=== PATIENT | female | born 1935 | race Caucasian/White ===

== ENCOUNTER 2016-08-27 15:55 | Emergency (ER) | payer OTHER ==
[~2016-08-27] VITALS: Ht 162.6 cm; Wt 85.0 kg
[2016-08-27 15:59] VITALS: TEMP 36.5; Ht 162.6 cm; Wt 85.0 kg
[2016-08-27 16:22] VITALS: O2SAT 97
[2016-08-27] MEDS ORDERED: CEFTRIAXONE SOD INJ 1 GM ADDVIAL IV STA (16:40)
[2016-08-27 16:53] LABS: BASO % 0.2 %; BASO ABS # 0.01 K/uL (0-0.2); EOS % 2.2 %; HEMATOCRIT 36.4 % (37-47); IG% 0.8 %; LYMPH % 22.7 %; LYMPH ABS # 1.45 K/uL (1.2-3.4); MEAN CELL VOLUME 110.3 fL (80-100); MEAN CORPUSCULAR HEMOGLOBIN 39.4 pg (25-34); MEAN CORPUSCULAR HGB CONC 35.7 g/dl (32-36); MEAN PLATELET VOLUME 10.9 fL (7.4-10.4); NEUT % 68.1 %; PLATELET COUNT 435 K/uL (130-400); WHITE BLOOD COUNT 6.38 K/uL (4.8-10.8)
[2016-08-27 17:02] LABS: BUN/CREATININE RATIO 29.9 (10-20); CALCIUM 9.1 mg/dl (8.5-10.1); CREATININE 0.93 mg/dl (0.60-1.20)
[2016-08-27] MEDS ORDERED: FENO145T26 PO (17:09)
[2016-08-27] MEDS ORDERED: ENOX60IN SQ (17:09)
[2016-08-27] MEDS ORDERED: MULT60CA PO (17:09)
[2016-08-27] MEDS ORDERED: NIACIN PO (17:09)
[2016-08-27] MEDS ORDERED: CITA10TA4 PO (17:09)
[2016-08-27] MEDS ORDERED: METH1TAB5 PO (17:09)
[2016-08-27] MEDS ORDERED: OMEG10007 PO (17:09)
[2016-08-27] MEDS ORDERED: CALC500C70 PO (17:09)
[2016-08-27] MEDS ORDERED: [UNRECOGNIZED DRUG - OTHER] PO (17:09)
[2016-08-27] MEDS ORDERED: LEVO25TA5 PO (17:09)
[2016-08-27] MEDS ORDERED: GABA-113 PO (17:09)
[2016-08-27] MEDS ORDERED: FOLI1TAB7 PO (17:09)
[2016-08-27] MEDS ORDERED: CARB1CAP8 PO (17:09)
[2016-08-27] MEDS ORDERED: METO25TA56 PO (17:09)
[2016-08-27] MEDS ORDERED: ROPI1TAB29 PO (17:09)
[2016-08-27] MEDS ORDERED: PANT40TA PO (17:09)
[2016-08-27] MEDS ORDERED: HYDR500C3 PO (17:09)
[2016-08-27] MEDS ORDERED: METO2.5T PO (17:09)
[2016-08-27] MEDS ORDERED: ASPI81TA28 PO (17:09)
[2016-08-27] MEDS ORDERED: ROSU5TAB PO (17:09)
[2016-08-27] MEDS ORDERED: SITA100T3 PO (17:09)
[2016-08-27] MEDS ORDERED: OXYC-57 PO (17:09)
[2016-08-27] MEDS ORDERED: FRS/40 PO (17:09)
[2016-08-27 17:11] LABS: URINE APPEARANCE CLEAR (CLEAR); URINE BILIRUBIN NEG (NEG); URINE COLOR YELLOW; URINE NITRITE NEG (NEG); URINE SPECIFIC GRAVITY 1.003 (1.000-1.030); UROBILINOGEN NEG (NEG); ZZUR CULT IF INDIC CLEAN CATCH NO
[2016-08-27 17:23] LABS: MANUAL MICROSCOPIC REQUIRED? NO; REVIEW REQ? NO
[2016-08-27 17:26] LABS: COMPLETE YES; HYPERSEGMENTED POLYS 1+; POLYCHROMASIA 1+
[2016-08-27] MEDS ORDERED: LEVOFLOXACIN 250 MG TAB PO STA (17:34)
[2016-08-27] MEDS ORDERED: LEVO-366 PO (17:36)
--- NOTE | 2016-08-27 17:36 | EMERGENCY ROOM VISIT NOTE ---
History Report prepared by Juhi: Maegan Garcia Under the Supervision of: Dr. Rob Edgar D.O. First contact with patient: 16:35 Chief Complaint: RECTAL BLEEDING Stated Complaint: RECTAL BLEEDING, SINUSES Nursing Triage Summary: Triage note: Pt reports and rectal bleeding x 3 days. pt also reports blood in urine "i have an appt with dr palencia coming up." pt reports "i have diverticulties and only have part of my colon." History of Present Illness The patient is a 81 year old female who presents to the Emergency Room with complaints of persistent rectal bleeding that started three days ago. She is also experiencing back pain, hematuria, burning with urination, and increased urinary frequency. The patient states that the back pain started when the bleeding started. She states that she noticed the hematuria after the rectal bleeding. Additionally, she is experiencing nausea, but denies vomiting. She is also experiencing a headache, sorethroat, abdominal pain, occasional dyspnea on exertion, and left thigh pain. The patient adds that she has diverticulitis and only has part of her colon. The patient is on Lovenox. Source of History: patient Onset: three days ago Position: other (rectum) Quality: other (rectal bleeding) Timing: other (persistent) Associated Symptoms: + abdominal pain, + back pain, + headache, + nausea, + sorethroat, + urinary symptoms (hematuria, burning with urination, increased urinary frequency), No vomiting Note: occasional dyspnea on exertion, left thigh pain Review of Systems See HPI for pertinent positives & negatives. A total of 10 systems reviewed and were otherwise negative. Past Medical & Surgical Medical Problems: (1) Diabetes (2) DVT (deep venous thrombosis) (3) Heart disease (4) History of pulmonary embolism (5) Hypertension (6) Pacemaker Surgical Problems: (1) H/O: hysterectomy (2) History of partial surgical removal of colon (3) Hx of appendectomy (4) Hx of cholecystectomy Family History Cancer Diabetes mellitus Heart disease Hypertension Kidney disease Kidney stones Social History Smoking Status: Never Smoker Alcohol Use: none Drug Use: none Housing Status: lives with family Occupation Status: unemployed Current/Historical Medications Scheduled Aspirin (Aspirin Ec), 81 MG PO DAILY Calcium/Vitamin D (Os-Demario 500 Plus D), 1 TAB PO DAILY Carbamazepine (Carbatrol Er), 1.5 TAB PO BID Citalopram Hydrobromide (Citalopram Hydrobromide), 1 TAB PO DAILY Enoxaparin (Lovenox), 60 MG SQ Q12H Fenofibrate (Tricor ), 150 MG PO DAILY Fish Oil ([place]-3), 1 CAP PO BID Folic Acid (Folvite), 400 MCG PO DAILY Furosemide (Lasix), 40 MG PO DAILY Gabapentin (Neurontin), 4 TAB PO HS Hydroxyurea (Hydrea Cap), 500 MG PO BID Levofloxacin (Levaquin), 500 MG PO DAILY Levothyroxine Sodium (Levothyroxine Sodium), 1 TAB PO DAILY Methenamine Hippurate (Methenamine Hippurate), 1 TAB PO BID Metolazone (Zaroxolyn), 2.5 MG PO DAILY Metoprolol Tartrate (Lopressor) (Lopressor), 25 MG PO BID Multiple Vitamins W/ Minerals (Preservision Areds 2), 1 CAP PO BID Pantoprazole (Protonix), 40 MG PO DAILY Ropinirole HCl (Ropinirole HCl), 1 MG PO DAILY Rosuvastatin Calcium (Crestor), 5 MG PO DAILY Sitagliptin Phosphate (Januvia), 100 MG PO DAILY [Vitamin B3 Niacin], 500 MG PO DAILY Scheduled PRN Oxycodone/Acetaminophen 5MG/325MG (Percocet 5MG/325MG), 1 TABLET PO Q4H PRN for Pain Allergies Coded Allergies: Acetaminophen (Unverified Allergy, Severe, unknown, 08/27/16) Butorphanol (Unverified Allergy, Severe, unknown, 08/27/16) Chlorzoxazone (Unverified Allergy, Severe, unknown, 08/27/16) Diazepam (Unverified Allergy, Severe, unknown, 08/27/16) Erythromycin (Unverified Allergy, Severe, unknown, 08/27/16) Naloxone (Unverified Allergy, Severe, unknown, 08/27/16) Nitrofurantoin (Unverified Allergy, Severe, unknown, 08/27/16) Pentazocine (Unverified Allergy, Severe, unknown, 08/27/16) Physical Exam Vital Signs Date Time Temp Pulse Resp B/P Pulse Ox O2 Delivery O2 Flow Rate FiO2 08/27/16 16:35 63 08/27/16 16:22 97 Room Air 08/27/16 15:59 36.5 77 20 151/74 97 Room Air Physical Exam CONSTITUTIONAL/VITAL SIGNS: Reviewed / noted above. GENERAL: Non-toxic in appearance. INTEGUMENTARY: Warm, dry, and [place]. HEAD: Normocephalic. EYES: without scleral icterus or trauma. ENT/OROPHARYNX: clear and moist. LYMPHADENOPATHY/NECK: Is supple without lymphadenopathy or meningismus. RESPIRATORY: Lungs clear and equal. CARDIOVASCULAR: Regular rate and rhythm. GI/ABDOMEN: Soft and nontender. No organomegaly or pulsatile mass. No rebound or guarding. Normal bowel sounds. EXTREMITIES: Warm and well perfused. BACK: Mild CVA tenderness. RECTAL: GUAIAC negative. light brown stool. No gross blood. NEUROLOGICAL: Intact without focal deficits. PSYCHIATRIC: normal affect. MUSCULOSKELETAL: Normally developed with good muscle tone. Medical Decision & Procedures Laboratory Results 08/27/16 16:19 Red Blood Count 3.30, Mean Corpuscular Volume 110.3, Mean Corpuscular Hemoglobin 39.4, Mean Corpuscular Hemoglobin Concent 35.7, Mean Platelet Volume 10.9, Neutrophils (%) (Auto) 68.1, Lymphocytes (%) (Auto) 22.7, Monocytes (%) ( Auto) 6.0, Eosinophils (%) (Auto) 2.2, Basophils (%) (Auto) 0.2, Neutrophils # ( Auto) 4.35, Lymphocytes # (Auto) 1.45, Monocytes # (Auto) 0.38, Eosinophils # ( Auto) 0.14, Basophils # (Auto) 0.01 08/27/16 16:19 Test 08/27/16 16:19 White Blood Count 6.38 K/uL (4.8-10.8) Red Blood Count 3.30 M/uL (4.2-5.4) Hemoglobin 13.0 g/dL (12.0-16.0) Hematocrit 36.4 % (37-47) Mean Corpuscular Volume 110.3 fL (80-100) Mean Corpuscular Hemoglobin 39.4 pg (25-34) Mean Corpuscular Hemoglobin Concent 35.7 g/dl (32-36) Platelet Count 435 K/uL (130-400) Mean Platelet Volume 10.9 fL (7.4-10.4) Neutrophils (%) (Auto) 68.1 % Lymphocytes (%) (Auto) 22.7 % Monocytes (%) (Auto) 6.0 % Eosinophils (%) (Auto) 2.2 % Basophils (%) (Auto) 0.2 % Neutrophils # (Auto) 4.35 K/uL (1.4-6.5) Lymphocytes # (Auto) 1.45 K/uL (1.2-3.4) Monocytes # (Auto) 0.38 K/uL (0.11-0.59) Eosinophils # (Auto) 0.14 K/uL (0-0.5) Basophils # (Auto) 0.01 K/uL (0-0.2) RDW Standard Deviation 62.6 fL (36.4-46.3) RDW Coefficient of Variation 15.8 % (11.5-14.5) Immature Granulocyte % (Auto) 0.8 % Immature Granulocyte # (Auto) 0.05 K/uL (0.00-0.02) Hypersegmented Polys 1+ Polychromasia 1+ Macrocytosis PRESENT Urine Color YELLOW Urine Appearance CLEAR (CLEAR) Urine pH 5.0 (4.5-7.5) Urine Specific [place] 1.003 (1.000-1.030) Urine Protein NEG (NEG) Urine Glucose (UA) NEG (NEG) Urine Ketones NEG (NEG) Urine Occult Blood 2+ (NEG) Urine Nitrite NEG (NEG) Urine Bilirubin NEG (NEG) Urine Urobilinogen NEG (NEG) Urine Leukocyte Esterase SMALL (NEG) Urine WBC (Auto) 5-10 /hpf (0-5) Urine RBC (Auto) 5-10 /hpf (0-4) Urine Hyaline Casts (Auto) 1-5 /lpf (0-5) Urine Epithelial Cells (Auto) 5-10 /lpf (0-5) Urine Bacteria (Auto) NEG (NEG) Anion Gap 6.0 mmol/L (3-11) Est Creatinine Clear Calc Drug Dose 51.8 ml/min Estimated GFR () 67.7 Estimated GFR (Non- 58.5 BUN/Creatinine Ratio 29.9 (10-20) Calcium Level 9.1 mg/dl (8.5-10.1) Laboratory results as stated above per my review. Medications Administered Medications (Trade) Dose Ordered Sig/Tone Route Start Time Stop Time Status Last Admin Dose Admin Ceftriaxone Sodium (Rocephin Inj) 1 gm NOW STAT IV 08/27/16 16:40 08/27/16 16:43 DC 08/27/16 16:50 1 GM ED Course 1635: Previous medical records were reviewed. The patient was evaluated in room B6. A complete history and physical examination was performed. 1640: Ordered Rocephin Inj 1 gm IV 1734: Ordered Levofloxacin 500 mg PO 1737: On reevaluation, the patient is doing well. I discussed the results and findings with the patient. She verbalized agreement of the treatment plan. She was discharged home. Medical Decision Differential includes UTI, renal hemorrhage, bladder cancer, trauma, anemia. This is a 81-year-old female who presents to the ED with a chief complaint of gastrointestinal/genitourinary bleeding. The patient states that she came in for this. The patient also reports that she has discomfort with urination as well as increased urination. She is on Lovenox for DVT. Her vital signs are normal. Her physical exam did not reveal any obvious abnormalities. Rectal exam reveals no gross blood. It was guaiac negative and light brown. CBC is unremarkable. The BUN is 28. Urine reveals 2+ blood, leukocyte Estrace, small amount of white and red cells and no bacteria. The patient was given IV Rocephin while here. The urine did not show clear-cut infection. She is symptomatic, however, she will be sent home with 3 days of Levaquin. Culture has been sent. She is felt to be stable for discharge and outpatient follow-up. Impression Primary Impression: Hematuria Additional Impression: UTI (urinary tract infection) Scribe Attestation The scribe's documentation has been prepared under my direction and personally reviewed by me in its entirety. I confirm that the note above accurately reflects all work, treatment, procedures, and medical decision making performed by me. Departure Information Dispostion Home / Self-Care Prescriptions Levofloxacin (Levaquin) 500 Mg Tab 500 MG PO DAILY for 3 Days, #3 TAB Prov: Rob Edgar D.O. 08/27/16 Referrals Yan Randolph (PCP) Forms HOME CARE DOCUMENTATION FORM, IMPORTANT VISIT INFORMATION, WORK / SCHOOL INSTRUCTIONS Patient Instructions My [facility] Additional Instructions Prescription for Levaquin and sent to [place] [facility]. Follow-up with your doctor for further care and evaluation in 2-4 days. Return to the emergency department for worsening or new symptoms or any concerns. You have been examined and treated today on an emergency basis only. This is not a substitute for, or an effort to provide, complete comprehensive medical care. It is impossible to recognize and treat all injuries or illnesses in a single emergency department visit. It is therefore important that you follow up closely with your doctor. Call as soon as possible for an appointment. Problem Qualifiers
[2016-08-27 17:55] VITALS: BP 128/71; PULSE 66; O2SAT 99
[2016-09-14] MEDS ORDERED: ENOX60IN SQ (09:52)
[2016-09-14] MEDS ORDERED: HYDR500C3 PO (09:52)
[2016-09-14] MEDS ORDERED: AREDS PO (09:57)
[2016-09-14] MEDS ORDERED: OXGN (10:09)
[2016-09-27] MEDS ORDERED: CIPR1TAB11 PO (09:42)
[2016-09-27] MEDS ORDERED: ACET-749 PO (09:42)
[2016-09-27] MEDS ORDERED: PHEN-775 PO (09:42)
[2016-10-15] MEDS ORDERED: LVNIS60 SQ (09:54)
[2016-10-15] MEDS ORDERED: DICY10CA55 PO ×2 (09:54→09:55)
[2016-12-31] MEDS ORDERED: MTR500 PO (13:44)
[2016-12-31] MEDS ORDERED: CPR500 PO (13:44)
[2016-12-31] MEDS ORDERED: OXYC-57 PO (13:44)
[2016-12-31] MEDS ORDERED: DXY100 PO (13:44)
[2016-12-31] MEDS ORDERED: IMD2 PO (13:44)
[2016-12-31] MEDS ORDERED: Boost Nutritional Drink PO (13:44)
[2016-12-31] MEDS ORDERED: FRS/40 PO (13:44)
== END 2016-08-27 18:02 | disposition home or self-care (01) ==
LOC: C.EDB 15:56
DX: R31.9 Hematuria, unspecified (principal); N39.0 Urinary tract infection, site not specified; E11.9 Type 2 diabetes mellitus without complications; I11.9 Hypertensive heart disease without heart failure; I51.9 Heart disease, unspecified; Z79.899 Other long term (current) drug therapy; Z79.01 Long term (current) use of anticoagulants; Z79.84 Long term (current) use of oral hypoglycemic drugs; Z79.82 Long term (current) use of aspirin; Z86.718 Personal history of other venous thrombosis and embolism; Z86.711 Personal history of pulmonary embolism; Z95.0 Presence of cardiac pacemaker; Z83.3 Family history of diabetes mellitus; Z82.49 Family history of ischemic heart disease and other diseases of the circulatory system; Z84.1 Family history of disorders of kidney and ureter

== ENCOUNTER 2016-09-27 07:17 | Day surgery (SDC) | payer OTHER ==
[2016-09-14 10:00] VITALS: BMI 32.0
--- NOTE | 2016-09-14 10:49 | PAT Medication Instructions ---
Service Date Sep 14, 2016. Current Home Medication List Aspirin (Aspirin Ec), 81 MG PO QAM Calcium/Vitamin D (Os-Demario 500 Plus D), 1 TAB PO QAM Carbamazepine (Carbatrol Er), 1.5 TAB PO BID Citalopram Hydrobromide (Citalopram Hydrobromide), 1 TAB PO QAM Enoxaparin (Lovenox), 60 MG SQ Q12H Fenofibrate (Tricor ), 145 MG PO QAM Fish Oil ([place]-3), 1 CAP PO BID Folic Acid (Folvite), 400 MCG PO QAM Furosemide (Lasix), 40 MG PO QAM Gabapentin (Neurontin), 1,200 MG PO HS Hydroxyurea (Hydrea Cap), 500 MG PO BID Levothyroxine Sodium (Levothyroxine Sodium), 1 TAB PO QAM Metolazone (Zaroxolyn), 2.5 MG PO PRN Metoprolol Tartrate (Lopressor) (Lopressor), 25 MG PO BID Multiple Vitamins W/ Minerals (Preservision Areds 2), 1 CAP PO BID Oxycodone/Acetaminophen 5MG/325MG (Percocet 5MG/325MG), 1 TABLET PO Q4H PRN for Pain Oxygen (Oxygen), 2 LITERS NA HS Pantoprazole (Protonix), 40 MG PO QAM Ropinirole HCl (Ropinirole HCl), 1 MG PO DAILY Rosuvastatin Calcium (Crestor), 5 MG PO QAM Sitagliptin Phosphate (Januvia), 100 MG PO QAM [Vitamin B3 Niacin], 500 MG PO QAM Medication Instructions For Your Scheduled Surgery - Enoxaparin (Lovenox), 60 MG SQ Q12H (Check with surgeon/Dr. Jaffe) - Hydroxyurea (Hydrea Cap), 500 MG PO BID (Check with surgeon/Dr. Jaffe) - Aspirin (Aspirin Ec), 81 MG PO QAM (check with surgeon for instructions/PCP) - Hold the following medications starting 09/14/16: Fish Oil ([place]-3), 1 CAP PO BID - Hold the following medications the morning of surgery: Sitagliptin Phosphate (Januvia), 100 MG PO QAM Multiple Vitamins W/ Minerals (Preservision Areds 2), 1 CAP PO BID Ropinirole HCl (Ropinirole HCl), 1 MG PO QAM Furosemide (Lasix), 40 MG PO QAM Folic Acid (Folvite), 400 MCG PO QAM Calcium/Vitamin D (Os-Demario 500 Plus D), 1 TAB PO QAM Fenofibrate (Tricor ), 145 MG PO QAM [Vitamin B3 Niacin], 500 MG PO QAM Metolazone (Zaroxolyn), 2.5 MG PO PRN - Take the following medications the morning of surgery with a sip of water: Rosuvastatin Calcium (Crestor), 5 MG PO QAM Pantoprazole (Protonix), 40 MG PO QAM Metoprolol Tartrate (Lopressor) (Lopressor), 25 MG PO BID Levothyroxine Sodium (Levothyroxine Sodium), 1 TAB PO QAM Citalopram Hydrobromide (Citalopram Hydrobromide), 1 TAB PO QAM Carbamazepine (Carbatrol Er), 1.5 TAB PO BID Oxycodone/Acetaminophen 5MG/325MG (Percocet 5MG/325MG), 1 TABLET PO Q4H PRN for Pain (okay to take up to 4 hours prior to surgery if needed) - Hold the following medications as scheduled the night before surgery: Ropinirole HCl (Ropinirole HCl), 1 MG PO 3 TABLETS QPM - Take the following medications as scheduled the night before surgery: Oxygen (Oxygen), 2 LITERS NA HS Multiple Vitamins W/ Minerals (Preservision Areds 2), 1 CAP PO BID Metoprolol Tartrate (Lopressor) (Lopressor), 25 MG PO BID Gabapentin (Neurontin), 1,200 MG PO HS Carbamazepine (Carbatrol Er), 1.5 TAB PO BID Oxycodone/Acetaminophen 5MG/325MG (Percocet 5MG/325MG), 1 TABLET PO Q4H PRN for Pain Metolazone (Zaroxolyn), 2.5 MG PO PRN If you have any questions please call us at [phone] (Pippa Jefferson PA-C) or [phone] or [phone]
--- NOTE | 2016-09-14 11:35 | DIAGNOSTIC IMAGING REPORT ---
CHEST 2 VIEWS ROUTINE HISTORY: Preop. COMPARISON: None. FINDINGS: Left-sided dual-chamber pacemaker. No pleural effusions. No pneumothorax. No focal lung consolidations to suggest pneumonia. No evidence for pulmonary edema. Questionable right infrahilar density likely represents confluence of the normal pulmonary vessels. The heart is normal in size. IMPRESSION: No acute process. Electronically signed by: Gregory Roth M.D. 09/14/2016 11:34 AM Dictated Date/Time: 09/14/2016 11:31 AM
[~2016-09-27] VITALS: Ht 165.1 cm; Wt 88.1 kg
[~2016-09-27 07:17] MED LIST: ASPI81TA28 PO; CALC500C70 PO; CARB1CAP8 PO; CIPROFLOXACIN / D5W 400 MG IV SCH; CITA10TA4 PO; ENOX60IN SQ; FENO145T26 PO; FOLI1TAB7 PO; FRS/40 PO; GABA-113 PO; HYDR500C3 PO; LACTATED RINGER'S 1000ML 1,000 ML IV SCH; LEVO25TA5 PO; METO2.5T PO; METO25TA56 PO; MULT60CA PO; NIACIN PO; OMEG10007 PO; OXGN; OXYC-57 PO; PANT40TA PO; ROPI1TAB29 PO; ROSU5TAB PO; SITA100T3 PO; [UNRECOGNIZED DRUG - OTHER] PO
[2016-09-27] MEDS ORDERED: LIDOCAINE HCL 2% 2 ML VIAL (20MG/ML) ONE (07:54)
[2016-09-27] MEDS ORDERED: MIDAZOLAM HCL 1 MG/ML 2ML VIAL ONE (07:54)
[2016-09-27] MEDS ORDERED: ONDANSETRON INJ 2 MG/ML 2 ML VIAL ONE (07:54)
[2016-09-27] MEDS ORDERED: FENTANYL CITRATE INJ 50 MCG/1 ML 2 ML VIAL ONE (07:54)
[2016-09-27] MEDS ORDERED: PROPOFOL IV EMULSION 10 MG/ML 20 ML VIAL IV ONE (07:54)
[2016-09-27 08:07] VITALS: BP 167/69; PULSE 62; TEMP 36.5; O2SAT 97; Ht 165.1 cm; Wt 88.1 kg
[2016-09-27] MEDS ORDERED: ONDANSETRON INJ 2 MG/ML 2 ML VIAL IV PRN (08:30)
[2016-09-27] MEDS ORDERED: FENTANYL CITRATE INJ 50 MCG/1 ML 2 ML VIAL IV PRN (08:30)
[2016-09-27] MEDS ORDERED: ATROPINE SULFATE 0.1 MG/ML 5ML SYR IV PRN (08:30)
[2016-09-27] MEDS ORDERED: EpHEDrine SULFATE INJ 50 MG/ML AMP IV PRN (08:30)
--- NOTE | 2016-09-27 08:36 | History & Physical Bridge Note ---
H&P Re-Evaluation Bridge Note: I have examined the patient, reviewed the History & Physical and in the interval since the performance of the History & Physical I have noted the following changes of clinical significance: No changes noted
--- NOTE | 2016-09-27 09:41 | [facility] Post Operative Brief Note ---
Immediate Operative Summary Operative Date Sep 27, 2016. Pre-Operative Diagnosis Gross Hematuria Post-Operative Diagnosis Same Procedure(s) Performed Cystoscopy, Bladder Biopsy, Fulguration. Surgeon Dr. Efrain Padilla D[employer] Teacher Surgeon(s) None Estimated Blood Loss 5ML Findings Erythematous patch on the right lateral wall, several cm in diameter. Posterior to the UO by several cm. Biopsy x3 then fulguration of the entire area. Specimens A. Bladder biopsy - Right Lateral wall x3 Drains none Anesthesia MAC Complication(s) None Disposition Recovery Room / PACU (stable)
[2016-09-27] MEDS ORDERED: PHEN-775 PO (09:42)
[2016-09-27] MEDS ORDERED: CIPR1TAB11 PO (09:42)
[2016-09-27] MEDS ORDERED: ACET-749 PO (09:42)
[2016-09-27] MEDS ORDERED: SODIUM CHLORIDE 0.9% 1000ML 1,000 ML IV SCH (09:46)
--- NOTE | 2016-09-27 09:46 | Discharge Instructions ---
Discharge Instructions Admission Reason for Admission: Gross Hematuria Discharge Discharge Diagnosis / Problem: identify and treat the problem Discharge Goals Goal(s): Decrease discomfort, Improve function, Increase independence, Improve disease control Activity Recommendations Activity Limitations: resume your previous activity Lifting Limitations: none Exercise/Sports Limitations: none May Resume Sexual Activity: when tolerated Shower/Bathe: no limitations Driving or Machine Use: no limitations . Discharge Diet Recommended Diet: Regular Diet Procedures Procedures Performed: Cystoscopy, Bladder Biopsy, Fulguration. Pending Studies Studies pending at discharge: no Medical Emergencies . Who to Call and When: Medical Emergencies: If at any time you feel your situation is an emergency, please call 911 immediately. . Non-Emergent Contact Non-Emergency issues call your: Urologist Call Non-Emergent contact if: temperature is above 101.5, your pain is not controlled, your pain is unusual for you . . "Provider Documentation" section prepared by Carlos Enrique Ferrell. VTE Core Measure Inpt VTE Proph given/why not?: Enoxaparin (Lovenox)[facility] Drug Monitoring Program Search Results: patient reviewed within database (numerous prior rx's given)
[2016-09-27] MEDS ORDERED: HYDROCODONE/ACETAMOPHEN 5/325MG TAB PO PRN ×2 (10:00)
--- NOTE | 2016-09-27 10:01 | Anesthesiology Progress Note ---
Anesthesia Post Op Note Date & Time Sep 27, 2016 at 10:01 Vital Signs Pain Intensity: 2 Vital Signs Past 12 Hours Date Time Temp Pulse Resp B/P Pulse Ox O2 Delivery O2 Flow Rate FiO2 09/27/16 09:54 60 16 09/27/16 09:54 60 16 87/69 100 09/27/16 09:49 60 11 119/61 100 09/27/16 09:49 61 11 09/27/16 09:48 36.2 70 12 129/64 100 Mask 10 09/27/16 09:44 64 16 09/27/16 09:44 64 16 131/59 100 09/27/16 08:07 36.5 62 16 167/69 97 Room Air Notes Mental Status: alert / awake / arousable, participated in evaluation Pt Amnestic to Procedure: Yes Nausea / Vomiting: adequately controlled Pain: adequately controlled Airway Patency, RR, SpO2: stable & adequate BP & HR: stable & adequate Hydration State: stable & adequate Anesthetic Complications: no major complications apparent
[2016-09-27 10:19] VITALS: BP 128/56; PULSE 61; TEMP 36.7; O2SAT 100
--- NOTE | 2016-09-27 10:22 | OPERATIVE REPORT ---
DATE OF OPERATION: 09/27/2016 PREOPERATIVE DIAGNOSES: Hematuria and erythematous bladder lesion. POSTOPERATIVE DIAGNOSES: Same. PROCEDURE PERFORMED: Cystoscopy, bladder biopsy x3, and fulguration of the erythematous area. ANESTHESIA: Sedation. ESTIMATED BLOOD LOSS: 5 mL URINE OUTPUT: Not recorded. SPECIMENS: Bladder biopsy x3 for routine pathology. DESCRIPTION OF THE PROCEDURE: Vanessa Kelly was identified in the preoperative holding area. Appropriate informed consents were reviewed and completed, and the patient was transported to the operating suite. Upon arrival, she received appropriate sedation and ciprofloxacin. Passed initially a 24-[place] resectoscope, visual obturator and 30-degree lens. Full inspection of the bladder was carried out identifying 1 erythematous area lateral and posterior to the right ureteral orifice. This was approximately 3-4 cm in largest diameter. There was no fungating tumor or papillary tumor appreciated. I then passed a biopsy forceps and took 3 separate biopsies of this erythematous area and passed them all off the table as a single specimen. I reentered with a resecting loop and fulgurated the base of these biopsy sites as well as all of the erythematous area until it was entirely resolved. I then emptied the bladder and concluded the case. I attest to the content of the Intraoperative Record and any orders documented therein. Any exceptio ns are noted below.
[2016-09-27 10:40] VITALS: BP 122/58; PULSE 60; TEMP 36.7; O2SAT 100
[2016-10-15] MEDS ORDERED: DICY10CA55 PO ×2 (09:54→09:55)
[2016-10-15] MEDS ORDERED: LVNIS60 SQ (09:54)
[2016-12-31] MEDS ORDERED: MTR500 PO (13:44)
[2016-12-31] MEDS ORDERED: IMD2 PO (13:44)
[2016-12-31] MEDS ORDERED: OXYC-57 PO (13:44)
[2016-12-31] MEDS ORDERED: DXY100 PO (13:44)
[2016-12-31] MEDS ORDERED: FRS/40 PO (13:44)
[2016-12-31] MEDS ORDERED: Boost Nutritional Drink PO (13:44)
[2016-12-31] MEDS ORDERED: CPR500 PO (13:44)
== END 2016-09-27 10:55 | disposition home or self-care (01) ==
LOC: C.ACU 07:17
PROVIDERS: ATTEND Urology
DX: N30.21 Other chronic cystitis with hematuria (principal); N32.9 Bladder disorder, unspecified; R35.0 Frequency of micturition; R39.15 Urgency of urination; E11.9 Type 2 diabetes mellitus without complications; E78.5 Hyperlipidemia, unspecified; I10 Essential (primary) hypertension; G40.909 Epilepsy, unspecified, not intractable, without status epilepticus; I50.9 Heart failure, unspecified; D68.51 Activated protein C resistance; Z88.1 Allergy status to other antibiotic agents; Z90.89 Acquired absence of other organs; Z86.718 Personal history of other venous thrombosis and embolism; Z90.49 Acquired absence of other specified parts of digestive tract; Z90.710 Acquired absence of both cervix and uterus; Z95.0 Presence of cardiac pacemaker; Z98.51 Tubal ligation status; E66.9 Obesity, unspecified; Z68.32 Body mass index [BMI] 32.0-32.9, adult; Z83.3 Family history of diabetes mellitus; Z82.49 Family history of ischemic heart disease and other diseases of the circulatory system; Z84.1 Family history of disorders of kidney and ureter; Z80.42 Family history of malignant neoplasm of prostate; Z80.8 Family history of malignant neoplasm of other organs or systems

== ENCOUNTER 2016-10-06 15:44 | Emergency (ER) | payer OTHER ==
[~2016-10-06] VITALS: Ht 162.6 cm; Wt 87.0 kg
[~2016-10-06 15:44] MED LIST changes: +ACET-749 PO; +CIPR1TAB11 PO; -CIPROFLOXACIN / D5W 400 MG IV SCH; -LACTATED RINGER'S 1000ML 1,000 ML IV SCH; +PHEN-775 PO
[2016-10-06 15:50] VITALS: TEMP 36.7; Ht 162.6 cm; Wt 87.0 kg
[2016-10-06] MEDS ORDERED: ROPI1TAB PO (17:56)
[2016-10-06] MEDS ORDERED: METH1TAB5 PO (17:56)
[2016-10-06] MEDS ORDERED: ASCO10003 PO (17:56)
--- NOTE | 2016-10-06 18:08 | EMERGENCY ROOM VISIT NOTE ---
History Report prepared by Juhi: Willian Gracia Under the Supervision of: Dr. Tomás Cramer D.O. First contact with patient: 17:47 Chief Complaint: HEMATURIA Stated Complaint: BLEEDING/CLOTTING FROM BLADDER Nursing Triage Summary: pt had a bladder biopsy on sep 27, pt on lovenox and has been bleeding some since the procedure, since yesterday, pt developed blood clots in urine, pt had increased urgency to void and pressure from not being able to void, pt states she has to wait until she passes a clot to urinate, last void 3 hours ago History of Present Illness The patient is a 81 year old female who presents to the Emergency Room due to hematuria that the patient began to notice following a bladder biopsy on September 27, 9 days prior to arrival. The patient did pass some clots in the urine as well. She did void her bladder completely upon arrival to the emergency department, but she had been experiencing difficulty voiding previously. The patient had a bladder biopsy due to concern over a mass that was present. 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 A total of 10 systems reviewed and were otherwise negative. Past Medical & Surgical Medical Problems: (1) Diabetes (2) DVT (deep venous thrombosis) (3) Heart disease (4) History of pulmonary embolism (5) Hypertension (6) Pacemaker Surgical Problems: (1) H/O: hysterectomy (2) History of partial surgical removal of colon (3) Hx of appendectomy (4) Hx of cholecystectomy Family History Cancer Diabetes mellitus Heart disease Hypertension Kidney disease Kidney stones Social History Smoking Status: Never Smoker Alcohol Use: none Drug Use: none Housing Status: lives with family Occupation Status: unemployed Current/Historical Medications Scheduled Ascorbic Acid (Vitamin C), 1,000 MG PO DAILY Aspirin (Aspirin Ec), 81 MG PO QAM Calcium/Vitamin D (Os-Demario 500 Plus D), 1 TAB PO QAM Carbamazepine (Carbatrol Er), 1.5 TAB PO BID Citalopram Hydrobromide (Citalopram Hydrobromide), 1 TAB PO QAM Enoxaparin (Lovenox), 60 MG SQ Q12H Fenofibrate (Tricor ), 145 MG PO QAM Fish Oil ([place]-3), 1 CAP PO BID Folic Acid (Folvite), 400 MCG PO QAM Furosemide (Lasix), 40 MG PO QAM Gabapentin (Neurontin), 1,200 MG PO HS Hydroxyurea (Hydrea Cap), 500 MG PO BID Levothyroxine Sodium (Levothyroxine Sodium), 1 TAB PO QAM Metolazone (Zaroxolyn), 2.5 MG PO PRN Metoprolol Tartrate (Lopressor) (Lopressor), 25 MG PO BID Multiple Vitamins W/ Minerals (Preservision Areds 2), 1 CAP PO BID Oxygen (Oxygen), 2 LITERS NA HS Pantoprazole (Protonix), 40 MG PO QAM Ropinirole (Requip), 3 MG PO HS Ropinirole HCl (Ropinirole HCl), 1 MG PO QAM Rosuvastatin Calcium (Crestor), 5 MG PO QAM Sitagliptin Phosphate (Januvia), 100 MG PO QAM [Vitamin B3 Niacin], 500 MG PO QAM Scheduled PRN Methenamine Hippurate (Methenamine Hippurate), 1 GM PO BID PRN for UTI Oxycodone/Acetaminophen 5MG/325MG (Percocet 5MG/325MG), 1 TABLET PO Q4H PRN for Pain Allergies Coded Allergies: Butorphanol (Verified Allergy, Intermediate, HIVES, 10/06/16) Chlorzoxazone (Verified Allergy, Intermediate, HIVES, 10/06/16) Erythromycin (Verified Allergy, Intermediate, HIVES, 10/06/16) Naloxone (Verified Allergy, Intermediate, HIVES, 10/06/16) Nitrofurantoin (Verified Allergy, Intermediate, HIVES, 10/06/16) Pentazocine (Verified Allergy, Intermediate, HIVES, 10/06/16) Diazepam (Verified Adverse Reaction, Unknown, FELLS LIKE CRAWLING UP A WALL, 10/06/16) Physical Exam Vital Signs Date Time Temp Pulse Resp B/P Pulse Ox O2 Delivery O2 Flow Rate FiO2 10/06/16 18:00 65 18 160/88 96 Room Air 10/06/16 15:50 36.7 68 18 98 Room Air Physical Exam GENERAL: Sitting in bed comfortably. HEENT: No acute trauma, normocephalic atraumatic, mucous membranes moist, no nasal congestion, no scleral icterus. NECK: No stridor, no adenopathy, no meningismus, trachea is midline. LUNGS: No dyspnea. Clear to auscultation and equal bilaterally. No wheeze, no rhonchi. HEART: Regular rate and rhythm. No murmurs, rubs, gallops appreciated. ABDOMEN: Soft, nontender, bowel sounds positive, no masses appreciated, no peritonitis. BACK: No midline tenderness, no CVA tenderness EXTREMITIES: Normal motion all extremities, no cyanosis, no edema. NEUROLOGIC: Alert and oriented x3. SKIN: No rash, no jaundice, no diaphoresis. PSYCH: Normal affect Medical Decision & Procedures Laboratory Results Test 10/06/16 00:00 ED Course 175: The patient was evaluated in room C3. A complete history and physical exam was performed. 1845: I checked on the patient at this time, she was resting in bed. 1936: Reevaluated the patient. She had a bladder scan done, she does not want a straight catheter placed. Discussed results and discharge instructions: she verbalized understanding and agreement. The patient is ready for discharge. Medical Decision Differential diagnosis: Etiologies such as dysfunction uterine bleeding, bleeding dyscrasia, trauma, infection, as well as others were entertained. Patient is a 81-year-old female who 8 days ago underwent a bladder biopsy for bladder mass. She is on long-term anticoagulation 60 mg of Lovenox twice daily for factor V Leiden deficiency and previous DVTs with PE. Over the past 2-3 days she's had hematuria and passing clots, she is still able to urinate at this time. I'll send of the bladder it revealed approximately 1 L of urine, she reports she is still physically able to urinate. She has follow-up in 5 days with her urologist Italo Padilla. I sent a UA for urine culture and will treat based off of culture results. I offered to place a Kimble catheter and explain the risks of infection versus the benefits of being able to irrigate the bladder and not having to worry about acute urinary obstruction. Patient decided to opt to not have the Kimble catheter placed and will return for acute urinary retention. Patient will be discharged in improved stable condition. 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 I confirm that the note above accurately reflects all work, treatment, procedures, and medical decision making performed by me. Departure Information Dispostion Home / Self-Care Referrals Yan Randolph (PCP) Additional Instructions If you're unable to urinate, return for a bladder catheter placement. Your urine was sent for culture, call Dr. Padilla's office tomorrow for follow- up. Return for fevers, chills, or any other concerns. Problem Qualifiers
[2016-10-06 19:50] LABS: MANUAL MICROSCOPIC REQUIRED? YES; URINE APPEARANCE TURBID (CLEAR); URINE BILIRUBIN NEG (NEG); URINE COLOR RED; URINE NITRITE NEG (NEG); URINE PH 6.5 (4.5-7.5); UROBILINOGEN NEG (NEG)
[2016-10-06 20:00] VITALS: BP 180/83; PULSE 60; O2SAT 99
[2016-10-06 20:15] LABS: REVIEW REQ? NO
[2016-10-06 20:18] LABS: URINE BACTERIA NEG (NEG); URINE RBC >30 /hpf (0-4)
[2016-10-15] MEDS ORDERED: DICY10CA55 PO ×2 (09:54→09:55)
[2016-10-15] MEDS ORDERED: LVNIS60 SQ (09:54)
[2016-12-31] MEDS ORDERED: DXY100 PO (13:44)
[2016-12-31] MEDS ORDERED: MTR500 PO (13:44)
[2016-12-31] MEDS ORDERED: Boost Nutritional Drink PO (13:44)
[2016-12-31] MEDS ORDERED: IMD2 PO (13:44)
[2016-12-31] MEDS ORDERED: OXYC-57 PO (13:44)
[2016-12-31] MEDS ORDERED: FRS/40 PO (13:44)
[2016-12-31] MEDS ORDERED: CPR500 PO (13:44)
== END 2016-10-06 20:12 | disposition home or self-care (01) ==
LOC: C.EDB 15:45 → C.EDC 20:12
DX: R31.9 Hematuria, unspecified (principal); D68.51 Activated protein C resistance; D41.4 Neoplasm of uncertain behavior of bladder; E11.9 Type 2 diabetes mellitus without complications; I10 Essential (primary) hypertension; Z95.0 Presence of cardiac pacemaker; Z79.01 Long term (current) use of anticoagulants; Z86.718 Personal history of other venous thrombosis and embolism; Z79.899 Other long term (current) drug therapy

== ENCOUNTER 2016-10-08 07:36 | Observation (INO) | payer OTHER ==
[~2016-10-08] VITALS: Ht 162.6 cm; Wt 84.1 kg
[~2016-10-08 07:36] MED LIST changes: -ACET-749 PO; +ASCO10003 PO; -CIPR1TAB11 PO; +METH1TAB5 PO; -PHEN-775 PO; +ROPI1TAB PO
[2016-10-08 07:40] VITALS: Ht 162.6 cm; Wt 84.1 kg
[2016-10-08] MEDS ORDERED: ONDANSETRON INJ 2 MG/ML 2 ML VIAL IV STA (07:52)
[2016-10-08] MEDS ORDERED: SODIUM CHLORIDE 0.9% 1000ML 1,000 ML IV STA (07:52)
[2016-10-08] MEDS ORDERED: LOPERAMIDE HCL 2 MG CAP PO STA (08:07)
[2016-10-08 08:42] LABS: BASO % 0.1 %; BASO ABS # 0.01 K/uL (0-0.2); EOS % 0.5 %; HEMATOCRIT 36.1 % (37-47); IG% 0.6 %; LYMPH % 4.6 %; LYMPH ABS # 0.48 K/uL (1.2-3.4); MEAN CELL VOLUME 112.5 fL (80-100); MEAN CORPUSCULAR HEMOGLOBIN 38.9 pg (25-34); MEAN CORPUSCULAR HGB CONC 34.6 g/dl (32-36); MEAN PLATELET VOLUME 10.4 fL (7.4-10.4); MONO % 2.6 %; NEUT % 91.6 %; PLATELET COUNT 413 K/uL (130-400); RED BLOOD COUNT 3.21 M/uL (4.2-5.4); WHITE BLOOD COUNT 10.39 K/uL (4.8-10.8)
[2016-10-08] MEDS ORDERED: CALC-354 PO (08:46)
[2016-10-08] MEDS ORDERED: HYD500 PO (08:46)
[2016-10-08] MEDS ORDERED: NIAC500T11 PO (08:46)
[2016-10-08 08:59] LABS: ALT/SGPT 19 U/L (12-78); BLOOD UREA NITROGEN 25 mg/dl (7-18); BUN/CREATININE RATIO 24.5 (10-20); CALCIUM 8.6 mg/dl (8.5-10.1); CARBON DIOXIDE 23 mmol/L (21-32); CHLORIDE 101 mmol/L (98-107); GLUCOSE 168 mg/dl (70-99); POTASSIUM 4.1 mmol/L (3.5-5.1); SODIUM 136 mmol/L (136-145)
[2016-10-08 09:02] LABS: ALKALINE PHOSPHATASE 53 U/L (45-117); AST/SGOT 23 U/L (15-37)
[2016-10-08 09:09] LABS: COMPLETE YES; OVALOCYTES 1+
[2016-10-08] MEDS ORDERED: ONDA4TAB10 SL (09:49)
--- NOTE | 2016-10-08 09:50 | EMERGENCY ROOM VISIT NOTE ---
History Report prepared by Juhi: Ryanne Loera Under the Supervision of: Dr. Rob Edgar D.O. First contact with patient: 07:43 Chief Complaint: VOMITING Stated Complaint: VOMITING,DIARRHEA, BLEEDING AND CLOTTING FROM BLAD Nursing Triage Summary: Triage note: Back pain, nausea, vomiting, diarrhea; seen here a few days ago for hematuria per the pt. History of Present Illness The patient is a 81 year old female who presents to the Emergency Room with complaints of persistent vomiting starting at 0400 this morning. She reports that since then she has vomited about 10 times. The patient also reports that she is experiencing nausea, diarrhea, hematuria, and back pain. She has experienced diarrhea about 6 times this morning. The patient was seen in the ED 3 days ago for hematuria and the urine culture showed no issues. She denies taking any antibiotics recently. Source of History: patient Onset: 0400 this morning Position: other (global) Quality: other (vomiting) Associated Symptoms: + back pain, + nausea, + urinary symptoms (hematuria) Review of Systems See HPI for pertinent positives & negatives. A total of 10 systems reviewed and were otherwise negative. Past Medical & Surgical Medical Problems: (1) Diabetes (2) DVT (deep venous thrombosis) (3) Heart disease (4) History of pulmonary embolism (5) Hypertension (6) Pacemaker Surgical Problems: (1) H/O: hysterectomy (2) History of partial surgical removal of colon (3) Hx of appendectomy (4) Hx of cholecystectomy Family History Cancer Diabetes mellitus Heart disease Hypertension Kidney disease Kidney stones Social History Smoking Status: Never Smoker Alcohol Use: none Drug Use: none Housing Status: lives with family Occupation Status: unemployed Current/Historical Medications Scheduled Ascorbic Acid (Vitamin C), 1,000 MG PO BID Aspirin (Aspirin Ec), 81 MG PO QAM Calcium Carbonate-Cholecalcife (Caltrate 600+D), 1 TAB PO DAILY Carbamazepine (Carbatrol Er), 300 MG PO BID Citalopram Hydrobromide (Citalopram Hydrobromide), 10 MG PO QAM Fenofibrate (Tricor ), 145 MG PO QAM Fish Oil ([place]-3), 1 CAP PO BID Folic Acid (Folvite), 400 MCG PO QAM Furosemide (Lasix), 40 MG PO QAM Gabapentin (Neurontin), 1,200 MG PO HS Hydroxyurea (Hydrea Cap), 500 MG PO UD Hydroxyurea (Hydroxyurea), 500 MG PO UD Levothyroxine Sodium (Levothyroxine Sodium), 25 MCG PO QAM Metolazone (Zaroxolyn), 2.5 MG PO PRN Metoprolol Tartrate (Lopressor) (Lopressor), 25 MG PO BID Multiple Vitamins W/ Minerals (Preservision Areds 2), 1 CAP PO BID Niacin (Niacin), 500 MG PO QAM Ondasetron Odt (Zofran Odt), 4 MG SL Q6H Oxygen (Oxygen), 2 LITERS NA HS Pantoprazole (Protonix), 40 MG PO QAM Ropinirole (Requip), 3 MG PO HS Ropinirole HCl (Ropinirole HCl), 1 MG PO QAM Rosuvastatin Calcium (Crestor), 5 MG PO QAM Sitagliptin Phosphate (Januvia), 100 MG PO QAM Scheduled PRN Methenamine Hippurate (Methenamine Hippurate), 1 GM PO BID PRN for UTI Oxycodone/Acetaminophen 5MG/325MG (Percocet 5MG/325MG), 1 TABLET PO Q4H PRN for Pain Allergies Coded Allergies: Butorphanol (Verified Allergy, Intermediate, HIVES, 10/08/16) Chlorzoxazone (Verified Allergy, Intermediate, HIVES, 10/08/16) Erythromycin (Verified Allergy, Intermediate, HIVES, 10/08/16) Naloxone (Verified Allergy, Intermediate, HIVES, 10/08/16) Nitrofurantoin (Verified Allergy, Intermediate, HIVES, 10/08/16) Pentazocine (Verified Allergy, Intermediate, HIVES, 10/08/16) Diazepam (Verified Adverse Reaction, Unknown, FELLS LIKE CRAWLING UP A WALL, 10/08/16) Physical Exam Vital Signs Date Time Temp Pulse Resp B/P Pulse Ox O2 Delivery O2 Flow Rate FiO2 10/08/16 08:49 63 16 155/65 98 Room Air 10/08/16 07:40 36.6 61 18 140/63 98 Room Air Physical Exam CONSTITUTIONAL/VITAL SIGNS: Reviewed / noted above. GENERAL: Non-toxic in appearance. INTEGUMENTARY: Warm, dry, and [place]. HEAD: Normocephalic. EYES: without scleral icterus or trauma. ENT/OROPHARYNX: clear and moist. LYMPHADENOPATHY/NECK: Is supple without lymphadenopathy or meningismus. RESPIRATORY: Lungs clear and equal. CARDIOVASCULAR: Regular rate and rhythm. GI/ABDOMEN: Soft and nontender. No organomegaly or pulsatile mass. No rebound or guarding. Normal bowel sounds. EXTREMITIES: Warm and well perfused. BACK: No CVA tenderness. NEUROLOGICAL: Intact without focal deficits. PSYCHIATRIC: normal affect. MUSCULOSKELETAL: Normally developed with good muscle tone. Medical Decision & Procedures Laboratory Results 10/08/16 08:25 Red Blood Count 3.21, Mean Corpuscular Volume 112.5, Mean Corpuscular Hemoglobin 38.9, Mean Corpuscular Hemoglobin Concent 34.6, Mean Platelet Volume 10.4, Neutrophils (%) (Auto) 91.6, Lymphocytes (%) (Auto) 4.6, Monocytes (%) ( Auto) 2.6, Eosinophils (%) (Auto) 0.5, Basophils (%) (Auto) 0.1, Neutrophils # ( Auto) 9.52, Lymphocytes # (Auto) 0.48, Monocytes # (Auto) 0.27, Eosinophils # ( Auto) 0.05, Basophils # (Auto) 0.01 10/08/16 08:25 Test 10/08/16 08:25 White Blood Count 10.39 K/uL (4.8-10.8) Red Blood Count 3.21 M/uL (4.2-5.4) Hemoglobin 12.5 g/dL (12.0-16.0) Hematocrit 36.1 % (37-47) Mean Corpuscular Volume 112.5 fL (80-100) Mean Corpuscular Hemoglobin 38.9 pg (25-34) Mean Corpuscular Hemoglobin Concent 34.6 g/dl (32-36) Platelet Count 413 K/uL (130-400) Mean Platelet Volume 10.4 fL (7.4-10.4) Neutrophils (%) (Auto) 91.6 % Lymphocytes (%) (Auto) 4.6 % Monocytes (%) (Auto) 2.6 % Eosinophils (%) (Auto) 0.5 % Basophils (%) (Auto) 0.1 % Neutrophils # (Auto) 9.52 K/uL (1.4-6.5) Lymphocytes # (Auto) 0.48 K/uL (1.2-3.4) Monocytes # (Auto) 0.27 K/uL (0.11-0.59) Eosinophils # (Auto) 0.05 K/uL (0-0.5) Basophils # (Auto) 0.01 K/uL (0-0.2) RDW Standard Deviation 59.6 fL (36.4-46.3) RDW Coefficient of Variation 14.6 % (11.5-14.5) Immature Granulocyte % (Auto) 0.6 % Immature Granulocyte # (Auto) 0.06 K/uL (0.00-0.02) Macrocytosis PRESENT Ovalocytes 1+ Anion Gap 12.0 mmol/L (3-11) Estimated GFR () 62.1 Estimated GFR (Non- 53.5 BUN/Creatinine Ratio 24.5 (10-20) Calcium Level 8.6 mg/dl (8.5-10.1) Total Bilirubin 0.4 mg/dl (0.2-1) Direct Bilirubin 0.1 mg/dl (0-0.2) Aspartate Amino Transf (AST/SGOT) 23 U/L (15-37) Alanine Aminotransferase (ALT/SGPT) 19 U/L (12-78) Alkaline Phosphatase 53 U/L (45-117) Total Protein 7.8 gm/dl (6.4-8.2) Albumin 3.4 gm/dl (3.4-5.0) Lipase 383 U/L (73-393) Laboratory results as stated above per my review. Medications Administered Medications (Trade) Dose Ordered Sig/Tone Route Start Time Stop Time Status Last Admin Dose Admin Sodium Chloride (Nss 1000ml) 1,000 ml @ 250 mls/hr Q4H STAT IV 10/08/16 07:52 10/08/16 11:51 10/08/16 08:05 250 MLS/HR Ondansetron HCl (Zofran Inj) 4 mg NOW STAT IV 10/08/16 07:52 10/08/16 07:57 DC 10/08/16 08:05 4 MG Loperamide HCl (Imodium Cap) 2 mg NOW STAT PO 10/08/16 08:07 10/08/16 08:08 DC 10/08/16 08:49 2 MG ECG Indication: vomiting Rate (beats per minute): 75 Rhythm: other (atrial paced rhythm) Findings: no ectopy, other (no acute injury) ED Course 0752: Zofran Inj 4 mg IV, NSS 1000 ml @ 250 mls/hr IV. 0801: Previous medical records were reviewed. The patient was evaluated in room B2. A complete history and physical examination was performed. 0807: Imodium Cap 2 mg PO. 0938: I reevaluated the patient. She is resting comfortably. I discussed the results and treatment plan with her. She expressed understanding and agreement. She will be discharged home. 0952: The patient experienced additional diarrhea. She is no longer comfortable going home. 1006: I discussed the patient's case with Dr. Billy, [facility] - hospitalist. The patient will be evaluated for further management. Medical Decision Differential diagnosis: Etiologies such as gastroenteritis, food borne illness, infections, appendicitis , diverticulitis, inflammatory bowel disease, obstruction, GI bleed, biliary pathology, as well as others were entertained. This is a 81-year-old female who presents to the ED with a chief complaint of nausea, vomiting and diarrhea. The patient was seen here a couple of days ago with urinary symptoms. Her urine culture did not show infection. She states that this morning around 4 AM she developed nausea, vomiting and diarrhea. She has had about 10 episodes of vomiting in 5-6 episodes of diarrhea. Her vital signs are normal. She denies any focal abdominal pains. She has not had any fevers. She denies recent antibiotic use. Her exam reveals normal vital signs. She has a nontender abdomen. She does not appear dehydrated. She is nontoxic in appearance. Her CBC is unremarkable. Chemistry panel reveals a BUN of 25 and a glucose of 168. Is otherwise unremarkable. The patient was told the results. She was treated with IV fluids as well as IV Zofran and by mouth Imodium. The patient did have diarrhea while she was here. She did not have any vomiting while she was here. She was given a prescription for Zofran. She is felt to be stable for discharge. The daughter initially was willing to take the patient home but the patient stated that she was feeling worse and was feeling weak. The daughter then felt uncomfortable taking the patient home because of continued symptoms and the fact that she was feeling worse. I spoke with the hospitalist about observation for vomiting and diarrhea and weakness. Consults Time Called: [phone] Consulting Physician: Dr. PARTH Billy - hospitalist Returned Call: [phone] I discussed the patient's case with him. The patient will be evaluated for further management. Impression Primary Impression: Nausea, vomiting, and diarrhea Additional Impressions: Dehydration Weak Scribe Attestation The scribe's documentation has been prepared under my direction and personally reviewed by me in its entirety. I confirm that the note above accurately reflects all work, treatment, procedures, and medical decision making performed by me. Departure Information Dispostion Home / Self-Care Prescriptions Ondasetron Odt (ZOFRAN ODT) 4 Mg Tab 4 MG SL Q6H for Nausea, #20 TAB Prov: Rob Edgar D.O. 10/08/16 Referrals Yan Randolph (PCP) Patient Instructions ED Diet Vomiting Diarrhea, My [facility] Additional Instructions Zofran: Allow one tablet to dissolve under the tongue every 6 hours as needed for nausea or vomiting. Frequent sips of fluid to help avoid dehydration. Imodium might be beneficial for diarrhea. Anticipate improvement of symptoms over the next 24-48 hours. Return for any concerns about dehydration or vomiting or any other concerns. Problem Qualifiers
[2016-10-08] MEDS ORDERED: ALUMINUM/MAGNESIUM/SIMETH (MAALOX MAX) 30 ML UDC PO PRN (11:15)
[2016-10-08] MEDS ORDERED: ONDANSETRON INJ 2 MG/ML 2 ML VIAL IV PRN (11:15)
[2016-10-08] MEDS ORDERED: GLUCOSE 10 TABS/TUBE PO PRN (11:30)
[2016-10-08] MEDS ORDERED: DEXTROSE 50% 50 ML SYR IV PRN (11:30)
[2016-10-08] MEDS ORDERED: GLUCOSE 40% GEL 15 GM TUBE PO PRN (11:30)
[2016-10-08] MEDS ORDERED: GLUCAGON FOR INJ 1 MG VIAL SQ PRN (11:30)
--- NOTE | 2016-10-08 11:53 | History and Physical ---
History & Physical Date & Time of Service: Oct 08, 2016 at 11:20 Chief Complaint: Vomiting,Diarrhea, Bleeding And Clotting From Blad Primary Care Physician: Yan Randolph History of Present Illness Source: patient, family, clinic records, hospital records This pt is a 81-year-old female that presents emergency department with complaints of nausea, vomiting and diarrhea that started at approximately 4 AM this morning. Her symptoms started with diarrhea. Nausea and vomiting Shortly thereafter. She reports vomiting approximately 10 times. Denies any hematemesis or coffee-ground emesis. She denies any blood in her stool. She denies any fever or chills. She is complaining of a cramping like diffuse abdominal pain associated with bowel movements. She denies any sick contacts. She was in the emergency department 2 days ago with reports of hematuria. The patient underwent a cystoscopy for gross hematuria on 09/27. The results are consistent with chronic cystitis. No malignancy was noted. The patient also has a history of DVT and PE. She typically takes Lovenox 60 mg subcutaneous BID. This is currently being held for 48 hours due to the hematuria per Dr. Padilla's recommendations. She does also report dysuria and flank pain. The dysuria has been going on for quite some time. The back pain however started last night in addition to her other symptoms. Past Medical/Surgical History Medical Problems: (1) Diabetes Status: Chronic (2) DVT (deep venous thrombosis) Status: Resolved (3) Heart disease Status: Chronic (4) Hypertension Status: Chronic (5) Pacemaker Status: Chronic GI bleed status post partial colectomy History of seizure disorder History of CVA Status post appendectomy, cholecystectomy, hysterectomy and partial colectomy Family History Cancer Diabetes mellitus Heart disease Hypertension Kidney disease Kidney stones Social History Smoking Status: Never Smoker Alcohol Use: none Drug Use: none Marital Status: Housing status: lives with family Occupational Status: unemployed Allergies Coded Allergies: Butorphanol (Verified Allergy, Intermediate, HIVES, 10/08/16) Chlorzoxazone (Verified Allergy, Intermediate, HIVES, 10/08/16) Erythromycin (Verified Allergy, Intermediate, HIVES, 10/08/16) Naloxone (Verified Allergy, Intermediate, HIVES, 10/08/16) Nitrofurantoin (Verified Allergy, Intermediate, HIVES, 10/08/16) Pentazocine (Verified Allergy, Intermediate, HIVES, 10/08/16) Diazepam (Verified Adverse Reaction, Unknown, FELLS LIKE CRAWLING UP A WALL, 10/08/16) Home Medications Scheduled Ascorbic Acid (Vitamin C), 1,000 MG PO BID Aspirin (Aspirin Ec), 81 MG PO QAM Calcium Carbonate-Cholecalcife (Caltrate 600+D), 1 TAB PO DAILY Carbamazepine (Carbatrol Er), 300 MG PO BID Citalopram Hydrobromide (Citalopram Hydrobromide), 10 MG PO QAM Fenofibrate (Tricor ), 145 MG PO QAM Fish Oil (Gibbs-3), 1 CAP PO BID Folic Acid (Folvite), 400 MCG PO QAM Furosemide (Lasix), 40 MG PO QAM Gabapentin (Neurontin), 1,200 MG PO HS Hydroxyurea (Hydrea Cap), 500 MG PO UD Hydroxyurea (Hydroxyurea), 500 MG PO UD Levothyroxine Sodium (Levothyroxine Sodium), 25 MCG PO QAM Metolazone (Zaroxolyn), 2.5 MG PO PRN Metoprolol Tartrate (Lopressor) (Lopressor), 25 MG PO BID Multiple Vitamins W/ Minerals (Preservision Areds 2), 1 CAP PO BID Niacin (Niacin), 500 MG PO QAM Ondasetron Odt (Zofran Odt), 4 MG SL Q6H Oxygen (Oxygen), 2 LITERS NA HS Pantoprazole (Protonix), 40 MG PO QAM Ropinirole (Requip), 3 MG PO HS Ropinirole HCl (Ropinirole HCl), 1 MG PO QAM Rosuvastatin Calcium (Crestor), 5 MG PO QAM Sitagliptin Phosphate (Januvia), 100 MG PO QAM Scheduled PRN Methenamine Hippurate (Methenamine Hippurate), 1 GM PO BID PRN for UTI Oxycodone/Acetaminophen 5MG/325MG (Percocet 5MG/325MG), 1 TABLET PO Q4H PRN for Pain Review of Systems 10 system review performed and negative unless noted in HPI or below Physical Exam Vital Signs Date Time Temp Pulse Resp B/P Pulse Ox O2 Delivery O2 Flow Rate FiO2 10/08/16 08:49 63 16 155/65 98 Room Air 10/08/16 07:40 36.6 61 18 140/63 98 Room Air General Appearance: + mild distress (in mild discomfort) Head: normocephalic Eyes: EOMI ENT: + pertinent finding (oral mucosa slightly dry) Neck: no JVD Respiratory/Chest: lungs clear Cardiovascular: regular rate, rhythm Abdomen/GI: normal bowel sounds, non tender, soft, + pertinent finding (right- sided CVA tenderness noted.) Extremities/Musculoskelatal: no calf tenderness, no pedal edema Neurologic/Psych: no motor/sensory deficits, oriented x 3 Skin: warm/dry Diagnostics Laboratory Results Results Past 24 Hours Test 10/08/16 08:25 Range/Units White Blood Count 10.39 4.8-10.8 K/uL Red Blood Count 3.21 4.2-5.4 M/uL Hemoglobin 12.5 12.0-16.0 g/dL Hematocrit 36.1 37-47 % Mean Corpuscular Volume 112.5 80-100 fL Mean Corpuscular Hemoglobin 38.9 25-34 pg Mean Corpuscular Hemoglobin Concent 34.6 32-36 g/dl Platelet Count 413 130-400 K/uL Mean Platelet Volume 10.4 7.4-10.4 fL Neutrophils (%) (Auto) 91.6 % Lymphocytes (%) (Auto) 4.6 % Monocytes (%) (Auto) 2.6 % Eosinophils (%) (Auto) 0.5 % Basophils (%) (Auto) 0.1 % Neutrophils # (Auto) 9.52 1.4-6.5 K/uL Lymphocytes # (Auto) 0.48 1.2-3.4 K/uL Monocytes # (Auto) 0.27 0.11-0.59 K/uL Eosinophils # (Auto) 0.05 0-0.5 K/uL Basophils # (Auto) 0.01 0-0.2 K/uL RDW Standard Deviation 59.6 36.4-46.3 fL RDW Coefficient of Variation 14.6 11.5-14.5 % Immature Granulocyte % (Auto) 0.6 % Immature Granulocyte # (Auto) 0.06 0.00-0.02 K/uL Macrocytosis PRESENT Ovalocytes 1+ Sodium Level 136 136-145 mmol/L Potassium Level 4.1 3.5-5.1 mmol/L Chloride Level 101 98-107 mmol/L Carbon Dioxide Level 23 21-32 mmol/L Anion Gap 12.0 3-11 mmol/L Blood Urea Nitrogen 25 7-18 mg/dl Creatinine 1.00 0.60-1.20 mg/dl Estimated GFR () 62.1 Estimated GFR (Non- 53.5 BUN/Creatinine Ratio 24.5 10-20 Random Glucose 168 70-99 mg/dl Calcium Level 8.6 8.5-10.1 mg/dl Total Bilirubin 0.4 0.2-1 mg/dl Direct Bilirubin 0.1 0-0.2 mg/dl Aspartate Amino Transf (AST/SGOT) 23 15-37 U/L Alanine Aminotransferase (ALT/SGPT) 19 12-78 U/L Alkaline Phosphatase 53 45-117 U/L Total Protein 7.8 6.4-8.2 gm/dl Albumin 3.4 3.4-5.0 gm/dl Lipase 383 73-393 U/L Impression Assessment and Plan 81-year-old female with past medical history as noted above presents the emergency department with nausea, vomiting, diarrhea, abdominal pain and flank pain. Nausea, vomiting, diarrhea-likely viral GI illness -Admit to medical floor -Continue IV hydration with NS + 20 KCl @ 80 cc/hr -Send stool cultures and C. difficile -Monitor electrolytes -Continue Zofran 4 mg every 6 hours IV -Clear liquid diet -CT abd pelvis to access for enteritis/bowel obstruction -cover with ABX until cx return: cipro/flagyl Flank pain with associated CVA tenderness-urinalysis from 10/06 does not appear to be infected, however there is concern for new UTI given her current symptoms -CT of the abdomen/pelvis to assess for pyelonephritis/enteritis -Repeat UA -Urine culture sent -Continue methenamine Hematuria-recent biopsy consistent with chronic cystitis. No malignancy seen. -Continue to hold Lovenox for [address] Padilla's recommendations Coronary artery disease status post pacemaker -Continue aspirin 81 mg daily -Continue Lopressor 25 mg BID -Continue Crestor 5 mg daily diabetes mellitus -follow BSGs AC, HS and with meals -insulin sliding scale -Hold home dose of Januvia History of CHF-EF unknown -Gentle IV hydration -Hold home dose of Lasix 40 mg daily -Hold home dose of metolazone 2.5 mg as needed Seizure disorder -Continue Carbatrol ER 300 mg twice daily History of PE/DVT -Lovenox on hold as noted above -Patient does not tolerate oral anticoagulants Hypothyroidism -Continue Synthroid 25 g daily DVT prophylaxis -Chemical means contraindicated with hematuria -TEDS, SCDs CODE STATUS -LEVEL V DO NO RESUSCITATE PA Physician Supervision Note: I interviewed and examined the patient. Discussed with Kadie Rodriguez PAC and agree with findings and plan as documented in the note. Any exceptions or clarifications are listed here: None Pt presented with diarrhea that is intractable, she has recently been diagnosed with interstitial cystitis per urology vitals are stable abd with pain in right flank and LLQ( has history of diverticulosis) labs reviewed and discussed with kadie rodriguez observe, eval for infectious diarrhea, CT of abdomen to eval for pyelonephritis or diverticulitis Documented By: Vinny Brown Level of Care Med/Surg Resuscitation Status DO NOT RESUSCITATE VTE Prophylaxis VTE Risk Assessment Done? Y/N: Yes Risk Level: Moderate Given or contraindicated: Contraindicated
[2016-10-08] MEDS ORDERED: OPTIRAY 320 IV PRN (12:00)
[2016-10-08 12:13] VITALS: BP 145/66; PULSE 69; TEMP 36.5; O2SAT 96
[2016-10-08] MEDS ORDERED: METHENAMINE HIPPURATE 1 GM TAB PO PRN (12:15)
[2016-10-08] MEDS ORDERED: NSS + 20MEQ KCL 1000ML 1,000 ML IV SCH (13:30)
[2016-10-08] MEDS: CIPROFLOXACIN / D5W 400 MG in PREMIXED IN D5W 200 ML IV SCH (14:08)
[2016-10-08] MEDS: HYDROXYUREA 500 MG CAP PO SCH ×2 (14:11→22:00)
[2016-10-08] MEDS ORDERED: NURSING DECISION MEDICATION ORDER SCH (14:30)
[2016-10-08] MEDS ORDERED: NYSTATIN POWDER 15GM BTL EXT PRN (14:45)
[2016-10-08 15:15] VITALS: BP 145/66; PULSE 69; TEMP 36.5; O2SAT 96
[2016-10-08] MEDS ORDERED: IV FLUIDS COMPLETED PRN (15:30)
--- NOTE | 2016-10-08 15:50 | DIAGNOSTIC IMAGING REPORT ---
CT ABD/PELVIS IV AND ORAL CONT CLINICAL HISTORY: Small bowel obstruction. Polyarthritis. Possible enteritis. COMPARISON STUDY: Outside study dated 03/16/2016 TECHNIQUE: Following the IV administration of 115 mL of Optiray-320, CT scan of the abdomen and pelvis was performed from the lung bases to the proximal femurs. Images are reviewed in the axial, sagittal, and coronal planes. IV contrast was administered without complication. CT DOSE: 965.14 mGy.cm FINDINGS: Lower chest: The heart is normal in size and configuration, without pericardial effusion. The lung bases and pleural spaces are clear. Liver: There is mild hepatic steatosis. No focal masses are visualized. The portal veins appear patent. Gallbladder: Not visualized and presumed surgically absent Spleen: The spleen is mildly enlarged measuring 14 cm Pancreas: Unremarkable. Adrenal glands: There is bilateral adrenal gland thickening Kidneys: There are bilateral renal cysts. The largest on the left measures 21 mm. The largest the right measures 15 mm. There is no hydronephrosis. Bowel: There are no transition zones to indicate bowel obstruction. The patient appears be status post a partial colectomy. There is sigmoid diverticulosis. There are no acute peridiverticular inflammatory changes. Peritoneum: There is no intraperitoneal free air or abdominal ascites. There is a tiny fat-containing ventral hernia. Vasculature: There is no evidence of abdominal aortic aneurysm. An IVC filter is visualized. Adenopathy: None. Pelvic viscera: The uterus appears surgically absent. There is debris within the bladder. Correlation with urinalysis/urine cytology is recommended. Skeletal structures: No destructive osseous lesions are seen. There are multiple anterior abdominal wall nodules, possibly secondary to injection granulomas IMPRESSION: 1. Postsurgical changes of a partial colectomy 2. No evidence of bowel obstruction. No evidence of free air 3. Extensive sigmoid diverticulosis. No evidence of acute diverticulitis 4. Mild splenomegaly 5. Mild hepatic steatosis 6. Bilateral renal cysts 7. Debris within the bladder. Correlation with urinalysis/urine cytology is recommended Electronically signed by: Serafin Perry M.D. 10/08/2016 3:49 PM Dictated Date/Time: 10/08/2016 3:40 PM
[2016-10-08] MEDS: INSULIN ASPART 100 UNITS/ML 3 ML PEN SC SCH ×2 (16:29→19:54)
[2016-10-08] MEDS: ACETAMINOPHEN 325 MG TAB PO PRN (17:05)
[2016-10-08] MEDS: METRONIDAZOLE / NSS 500 MG in PREMIXED NSS 100 ML IV SCH ×2 (17:49→23:48)
[2016-10-08] MEDS ORDERED: HYDROXYUREA 500 MG CAP PO SCH (21:00)
[2016-10-08 21:41] LABS: MANUAL MICROSCOPIC REQUIRED? YES; REVIEW REQ? NO; SULFASALICYLIC ACID POS (NEG); URINE APPEARANCE TURBID (CLEAR); URINE COLOR RED; ZZUR CULT IF INDIC CLEAN CATCH YES
[2016-10-08 21:45] LABS: URINE BACTERIA 1+ (NEG); URINE RBC >30 /hpf (0-4); URINE WBC >30 /hpf (0-5)
[2016-10-08] MEDS ORDERED: NURSING VERBAL MED ORDER ONE (21:45)
[2016-10-08] MEDS ORDERED: CHOLESTYRAMINE LIGHT 4 GM PKT PO SCH (22:00)
[2016-10-08] MEDS: D5NSS + 20MEQ KCL 1,000 ML IV SCH (22:13)
[2016-10-08] MEDS: ROPINIROLE HCL 1 MG TAB PO SCH (22:17)
[2016-10-08] MEDS: GABAPENTIN 300 MG CAP PO SCH (22:22)
[2016-10-08] MEDS: METOPROLOL TARTRATE 25 MG TAB PO SCH (22:23)
[2016-10-08 23:25] VITALS: BP 131/73; PULSE 76; TEMP 36.7; O2SAT 97
[2016-10-09] MEDS: ACETAMINOPHEN 325 MG TAB PO PRN ×2 (00:17→08:59)
[2016-10-09] MEDS: CIPROFLOXACIN / D5W 400 MG in PREMIXED IN D5W 200 ML IV SCH ×2 (01:51→13:38)
[2016-10-09] MEDS: LEVOTHYROXINE 25 MCG TAB PO SCH (05:55)
[2016-10-09 07:00] LABS: BASO % 0.2 %; BASO ABS # 0.01 K/uL (0-0.2); EOS % 0.8 %; HEMATOCRIT 31.7 % (37-47); IG% 1.2 %; LYMPH % 13.2 %; LYMPH ABS # 0.69 K/uL (1.2-3.4); MEAN CELL VOLUME 113.2 fL (80-100); MEAN CORPUSCULAR HEMOGLOBIN 38.9 pg (25-34); MEAN CORPUSCULAR HGB CONC 34.4 g/dl (32-36); MEAN PLATELET VOLUME 10.2 fL (7.4-10.4); MONO % 9.6 %; PLATELET COUNT 388 K/uL (130-400); WHITE BLOOD COUNT 5.21 K/uL (4.8-10.8)
[2016-10-09 07:27] LABS: COMPLETE YES; HYPERSEGMENTED POLYS 1+
[2016-10-09 07:30] LABS: BLOOD UREA NITROGEN 18 mg/dl (7-18); BUN/CREATININE RATIO 20.1 (10-20); CALCIUM 8.1 mg/dl (8.5-10.1); CARBON DIOXIDE 22 mmol/L (21-32); CHLORIDE 108 mmol/L (98-107); GLUCOSE 141 mg/dl (70-99); MAGNESIUM 1.9 mg/dl (1.8-2.4); SODIUM 140 mmol/L (136-145)
[2016-10-09 07:38] VITALS: BP 125/71; PULSE 82; TEMP 36.9; O2SAT 98
[2016-10-09] MEDS: CITALOPRAM 20 MG TAB PO SCH (08:00)
[2016-10-09] MEDS: METOPROLOL TARTRATE 25 MG TAB PO SCH ×2 (08:00→21:26)
[2016-10-09] MEDS: FoLIC ACID TAB 400 MCG TAB PO SCH (08:00)
[2016-10-09] MEDS: FENOFIBRATE 145 MG TAB PO SCH (08:01)
[2016-10-09] MEDS: ROPINIROLE HCL 1 MG TAB PO SCH ×2 (08:01→21:26)
[2016-10-09] MEDS: PANTOprazole SOD 40 MG TAB PO SCH (08:02)
[2016-10-09] MEDS: ROSUVASTATIN CALCIUM 10 MG TAB PO SCH (08:02)
[2016-10-09] MEDS: ASPIRIN 81 MG ECTAB PO SCH (08:03)
[2016-10-09] MEDS: METRONIDAZOLE / NSS 500 MG in PREMIXED NSS 100 ML IV SCH (08:11)
[2016-10-09] MEDS: INSULIN ASPART 100 UNITS/ML 3 ML PEN SC SCH ×4 (08:55→20:42)
[2016-10-09] MEDS: HYDROXYUREA 500 MG CAP PO SCH ×2 (09:05→21:24)
[2016-10-09] MEDS ORDERED: PROMETHAZINE HCL INJ 12.5 MG in SODIUM CHLORIDE 0.9% 50ML 50 ML IV PRN (09:30)
--- NOTE | 2016-10-09 09:43 | Hospitalist Progress Note ---
Hospitalist Progress Note Date of Service Oct 09, 2016. (Alexia Rodriguez PA-C) Subjective Pt evaluation today including: conversation w/ patient, physical exam, chart review, lab review, review of studies, review of inpatient medication list Still complaining of nausea. Abdominal pain is mildly improved. Significant diarrhea overnight. Denies any fever or chills. Additional Comments: 6 system review negative. Please see pertinent positives in the history of present illness section. (Alexia Rodriguez PA-C) Objective Vital Signs Date Time Temp Pulse Resp B/P Pulse Ox O2 Delivery O2 Flow Rate FiO2 10/09/16 07:38 36.9 82 18 125/71 98 Room Air 10/09/16 00:00 Room Air 10/08/16 23:25 36.7 76 18 131/73 97 Room Air 10/08/16 21:30 Room Air 10/08/16 15:15 36.5 69 16 145/66 96 Room Air 10/08/16 12:13 36.5 69 16 145/66 96 Room Air 10/08/16 11:58 81 20 153/70 98 Room Air 10/08/16 11:45 Room Air 10/08/16 11:10 72 16 149/78 97 Room Air (Alexia Rodriguez PA-C) Physical Exam General Appearance: + mild distress (in mild discomfort) Eyes: EOMI ENT: + pertinent finding (oral mucosa dry) Neck: no JVD Respiratory/Chest: lungs clear Cardiovascular: regular rate, rhythm Abdomen: normal bowel sounds, soft, + pertinent finding (tenderness to palpation over the suprapubic region) Extremities: non-tender, no pedal edema Neurologic/Psychiatric: oriented x 3 Skin: warm/dry (Alexia Rodriguez PA-C) Laboratory Results 10/09/16 06:20 Red Blood Count 2.80, Mean Corpuscular Volume 113.2, Mean Corpuscular Hemoglobin 38.9, Mean Corpuscular Hemoglobin Concent 34.4, Mean Platelet Volume 10.2, Neutrophils (%) (Auto) 75.0, Lymphocytes (%) (Auto) 13.2, Monocytes (%) ( Auto) 9.6, Eosinophils (%) (Auto) 0.8, Basophils (%) (Auto) 0.2, Neutrophils # ( Auto) 3.91, Lymphocytes # (Auto) 0.69, Monocytes # (Auto) 0.50, Eosinophils # ( Auto) 0.04, Basophils # (Auto) 0.01 10/09/16 06:20 Test 10/08/16 13:11 10/08/16 21:00 10/09/16 06:20 10/09/16 07:33 Lactic Acid Level 1.3 mmol/L (0.4-2.0) Urine Color RED Urine Appearance TURBID (CLEAR) Urine pH (4.5-7.5) Urine Specific [place] (1.000-1.030) Urine Protein (NEG) Urine Glucose (UA) (NEG) Urine Ketones (NEG) Urine Occult Blood (NEG) Urine Nitrite (NEG) Urine Bilirubin (NEG) Urine Urobilinogen (NEG) Urine Leukocyte Esterase (NEG) Urine RBC >30 /hpf (0-4) Urine WBC >30 /hpf (0-5) Urine Epithelial Cells >30 /lpf (0-5) Urine Bacteria 1+ (NEG) White Blood Count 5.21 K/uL (4.8-10.8) Red Blood Count 2.80 M/uL (4.2-5.4) Hemoglobin 10.9 g/dL (12.0-16.0) Hematocrit 31.7 % (37-47) Mean Corpuscular Volume 113.2 fL (80-100) Mean Corpuscular Hemoglobin 38.9 pg (25-34) Mean Corpuscular Hemoglobin Concent 34.4 g/dl (32-36) Platelet Count 388 K/uL (130-400) Mean Platelet Volume 10.2 fL (7.4-10.4) Neutrophils (%) (Auto) 75.0 % Lymphocytes (%) (Auto) 13.2 % Monocytes (%) (Auto) 9.6 % Eosinophils (%) (Auto) 0.8 % Basophils (%) (Auto) 0.2 % Neutrophils # (Auto) 3.91 K/uL (1.4-6.5) Lymphocytes # (Auto) 0.69 K/uL (1.2-3.4) Monocytes # (Auto) 0.50 K/uL (0.11-0.59) Eosinophils # (Auto) 0.04 K/uL (0-0.5) Basophils # (Auto) 0.01 K/uL (0-0.2) RDW Standard Deviation 61.1 fL (36.4-46.3) RDW Coefficient of Variation 14.9 % (11.5-14.5) Immature Granulocyte % (Auto) 1.2 % Immature Granulocyte # (Auto) 0.06 K/uL (0.00-0.02) Hypersegmented Polys 1+ Macrocytosis PRESENT Anion Gap 10.0 mmol/L (3-11) Estimated GFR () 70.5 Estimated GFR (Non- 60.8 BUN/Creatinine Ratio 20.1 (10-20) Calcium Level 8.1 mg/dl (8.5-10.1) Magnesium Level 1.9 mg/dl (1.8-2.4) Bedside Glucose 131 mg/dl (70-90) Last 24 Hours Test 10/08/16 12:53 10/08/16 13:11 10/08/16 16:26 10/08/16 19:51 Bedside Glucose 123 mg/dl 104 mg/dl 90 mg/dl Lactic Acid Level 1.3 mmol/L Test 10/08/16 21:00 10/09/16 06:20 10/09/16 07:33 Urine Color RED Urine Appearance TURBID Urine pH Urine Specific [place] Urine Protein Urine Glucose (UA) Urine Ketones Urine Occult Blood Urine Nitrite Urine Bilirubin Urine Urobilinogen Urine Leukocyte Esterase Urine RBC >30 /hpf Urine WBC >30 /hpf Urine Epithelial Cells >30 /lpf Urine Bacteria 1+ White Blood Count 5.21 K/uL Red Blood Count 2.80 M/uL Hemoglobin 10.9 g/dL Hematocrit 31.7 % Mean Corpuscular Volume 113.2 fL Mean Corpuscular Hemoglobin 38.9 pg Mean Corpuscular Hemoglobin Concent 34.4 g/dl Platelet Count 388 K/uL Mean Platelet Volume 10.2 fL Neutrophils (%) (Auto) 75.0 % Lymphocytes (%) (Auto) 13.2 % Monocytes (%) (Auto) 9.6 % Eosinophils (%) (Auto) 0.8 % Basophils (%) (Auto) 0.2 % Neutrophils # (Auto) 3.91 K/uL Lymphocytes # (Auto) 0.69 K/uL Monocytes # (Auto) 0.50 K/uL Eosinophils # (Auto) 0.04 K/uL Basophils # (Auto) 0.01 K/uL RDW Standard Deviation 61.1 fL RDW Coefficient of Variation 14.9 % Immature Granulocyte % (Auto) 1.2 % Immature Granulocyte # (Auto) 0.06 K/uL Hypersegmented Polys 1+ Macrocytosis PRESENT Sodium Level 140 mmol/L Potassium Level 4.0 mmol/L Chloride Level 108 mmol/L Carbon Dioxide Level 22 mmol/L Anion Gap 10.0 mmol/L Blood Urea Nitrogen 18 mg/dl Creatinine 0.90 mg/dl Estimated GFR () 70.5 Estimated GFR (Non- 60.8 BUN/Creatinine Ratio 20.1 Random Glucose 141 mg/dl Calcium Level 8.1 mg/dl Magnesium Level 1.9 mg/dl Bedside Glucose 131 mg/dl (Alexia Rodriguez, PAViviana) Assessment and Plan 81-year-old female with past medical history as noted above presents the emergency department with nausea, vomiting, diarrhea, abdominal pain and flank pain. Nausea, vomiting, likely viral. C. difficile negative. Stool cultures pending. CT shows no signs of SBO or diverticulitis -IVF change last night to D5 + 20 KCl @ 100 cc/hr-->continue for now (BSGs stable) -Change Zofran to 4 mg every 6 hours scheduled -Add Phenergan 12.5 mg IV every 6 hours as needed -Questran added last night, however this is making the patient more nauseated. We'll discontinue -Follow up stool cultures -Continue Cipro Flagyl UTI-cx pending -Continue Cipro as noted above Hematuria-recent biopsy consistent with chronic cystitis. No malignancy seen. Patient notes that she passed a fairly large clot last night -hold off on [place] -If this persists, we will ask urology to see the patient tomorrow -Therapeutic Lovenox on hold Coronary artery disease status post pacemaker -Continue aspirin 81 mg daily -Continue Lopressor 25 mg BID -Continue Crestor 5 mg daily diabetes mellitus -BSGs q 6 h -insulin sliding scale -Hold home dose of Januvia History of CHF-EF unknown -Gentle IV hydration -Hold home dose of Lasix 40 mg daily -Hold home dose of metolazone 2.5 mg as needed Seizure disorder -Continue Carbatrol ER 300 mg twice daily History of PE/DVT Home dose Lovenox 60 units subcutaneous BID on hold We will at least start heparin 5000 u subQ BID (and monitor for further bleeding ) Hypothyroidism -Continue Synthroid 25 g daily DVT prophylaxis -Heparin 5000 u BID -TEDS CODE STATUS -LEVEL V DO NO RESUSCITATE (Alexia Rodriguez, PA-C) PA Physician Supervision Note: I interviewed and examined the patient. Discussed with Alexia Rodriguez PAC and agree with findings and plan as documented in the note. Any exceptions or clarifications are listed here: None Diarrhea continues negative infectious work up so far Hematuria currently with recent biopsy proven interstitial cystitis per urology vitals are stable abd with pain has improved but pt feels weak CT of abdomen /pelvis negative for acute pyelonephritis or diverticulitis supportive care for diarrhea, follow abnormal ua for infection, if hematuria persist consult urology cautious restart of heparin for DVT prevention Documented By: Vinny Brown (Vinny Brown M.D.)
[2016-10-09] MEDS: ONDANSETRON INJ 2 MG/ML 2 ML VIAL IV. SCH ×3 (10:21→23:21)
[2016-10-09] MEDS ORDERED: MICONAZOLE NITRATE POWDER 43 GM EXT PRN (11:00)
[2016-10-09] MEDS ORDERED: NURSING DECISION MEDICATION ORDER SCH ×2 (11:00)
[2016-10-09] MEDS ORDERED: TRAMADOL HCL 50 MG TAB PO PRN (11:15)
[2016-10-09] MEDS: KETOROLAC TROMETHAMINE 15 MG/ML VIAL IV PRN ×2 (11:55→21:35)
[2016-10-09] MEDS: D5NSS + 20MEQ KCL 1,000 ML IV SCH ×3 (12:41→22:51)
[2016-10-09] MEDS ORDERED: CEFTRIAXONE SOD INJ 1,000 MG in DEXTROSE 5% 50ML 50 ML IV SCH (15:00)
[2016-10-09] MEDS: CEFTRIAXONE SOD INJ 1000 MG in DEXTROSE 5% 50ML IV SCH (15:23)
[2016-10-09 15:35] VITALS: BP 157/72; PULSE 84; TEMP 36.8; O2SAT 99
[2016-10-09 15:44] LABS: INR 1.2 (0.9-1.1); PARTIAL THROMBOPLASTIN RATIO 1.1; PROTHROMBIN TIME (PATIENT) 12.4 SECONDS (9.0-12.0)
[2016-10-09] MEDS ORDERED: NURSING VERBAL MED ORDER ONE (16:15)
[2016-10-09] MEDS ORDERED: DiphenhydrAMINE HCL 50 MG/ML VIAL IV PRN (16:15)
[2016-10-09 21:15] VITALS: BP 147/72; PULSE 66
[2016-10-09] MEDS: GABAPENTIN 300 MG CAP PO SCH (21:25)
[2016-10-09] MEDS: HEPARIN SOD 5000 UNIT/0.5 ML CARP SQ SCH (21:25)
[2016-10-09 23:01] VITALS: BP 153/69; PULSE 70; TEMP 36.8; O2SAT 98
[2016-10-10] MEDS: D5NSS + 20MEQ KCL 1,000 ML IV SCH ×2 (01:02→11:00)
[2016-10-10] MEDS: LEVOTHYROXINE 25 MCG TAB PO SCH (05:16)
[2016-10-10] MEDS: ONDANSETRON INJ 2 MG/ML 2 ML VIAL IV. SCH ×4 (05:16→23:22)
[2016-10-10 06:54] LABS: BASO % 0.2 %; BASO ABS # 0.01 K/uL (0-0.2); EOS % 1.7 %; HEMATOCRIT 31.6 % (37-47); IG% 1.5 %; LYMPH % 24.9 %; LYMPH ABS # 1.19 K/uL (1.2-3.4); MEAN CELL VOLUME 112.5 fL (80-100); MEAN CORPUSCULAR HEMOGLOBIN 38.4 pg (25-34); MEAN CORPUSCULAR HGB CONC 34.2 g/dl (32-36); MEAN PLATELET VOLUME 9.5 fL (7.4-10.4); MONO % 8.2 %; NEUT % 63.5 %; PLATELET COUNT 392 K/uL (130-400); RED BLOOD COUNT 2.81 M/uL (4.2-5.4); WHITE BLOOD COUNT 4.77 K/uL (4.8-10.8)
[2016-10-10 07:21] VITALS: BP 134/86; PULSE 68; TEMP 36.8; O2SAT 97
[2016-10-10 07:23] LABS: BUN/CREATININE RATIO 18.9 (10-20); CALCIUM 7.9 mg/dl (8.5-10.1); CREATININE 0.78 mg/dl (0.60-1.20); POTASSIUM 4.5 mmol/L (3.5-5.1)
[2016-10-10 08:00] VITALS: O2SAT 97
[2016-10-10 08:20] LABS: COMPLETE YES; HYPERSEGMENTED POLYS 1+
[2016-10-10] MEDS: FoLIC ACID TAB 400 MCG TAB PO SCH (08:21)
[2016-10-10] MEDS: FENOFIBRATE 145 MG TAB PO SCH (08:21)
[2016-10-10] MEDS: CITALOPRAM 20 MG TAB PO SCH (08:21)
[2016-10-10] MEDS: ASPIRIN 81 MG ECTAB PO SCH (08:21)
[2016-10-10] MEDS: ROSUVASTATIN CALCIUM 10 MG TAB PO SCH (08:21)
[2016-10-10] MEDS: METOPROLOL TARTRATE 25 MG TAB PO SCH ×2 (08:22→21:12)
[2016-10-10] MEDS: ROPINIROLE HCL 1 MG TAB PO SCH ×2 (08:22→21:13)
[2016-10-10] MEDS: PANTOprazole SOD 40 MG TAB PO SCH (08:22)
[2016-10-10] MEDS: HYDROXYUREA 500 MG CAP PO SCH ×3 (08:28→21:16)
[2016-10-10] MEDS: HEPARIN SOD 5000 UNIT/0.5 ML CARP SQ SCH ×2 (08:28→21:20)
[2016-10-10] MEDS: INSULIN ASPART 100 UNITS/ML 3 ML PEN SC SCH ×4 (08:44→21:00)
[2016-10-10] MEDS ORDERED: HYDROCORTISONE HC 2.5% CRM 30GM TUBE EXT PRN (09:00)
[2016-10-10] MEDS ORDERED: NURSING VERBAL MED ORDER ONE (11:00)
--- NOTE | 2016-10-10 12:27 | Hospitalist Progress Note ---
Hospitalist Progress Note Date of Service Oct 10, 2016. (Alexia Rodriguez PA-C) Subjective Pt evaluation today including: conversation w/ patient, conversation w/ family , physical exam, chart review, lab review, review of inpatient medication list Patient still complaining of nausea. Diarrhea has slowed down somewhat. Is tolerating some oral intake. Currently on full liquids. Abdominal pain is mildly improved also. No fever or chills. Still passing blood and urine. No significant change when compared to the day before. Additional Comments: 6 system review negative. Please see pertinent positives in the history of present illness section. (Alexia Rodriguez PA-C) Pt evaluation today including: conversation w/ patient, conversation w/ family , physical exam, chart review, lab review, review of studies, review of inpatient medication list Per patient and daughter, patient is still have significant watery diarrhea every half and hour to an hour with not much improvement. She is afebrile, on IVF. No lightheadedness if she stands up gradually. No chest pain, no sob. Still have hematuria which also has not gotten better, still bright red urine according to patient. (Marina Almonte MD) Medications Vital Signs Date Time Temp Pulse Resp B/P Pulse Ox O2 Delivery O2 Flow Rate FiO2 10/10/16 14:58 36.8 67 18 121/74 98 Room Air Acetaminophen (Tylenol Tab) 650 mg Q4H PRN PO Last administered on 10/10/16 15:51; Admin Dose 650 MG; Start 10/08/16 at 11:15; Stop 11/07/16 at 11:14 Al Hydrox/Mg Hydrox/Simethicone (Maalox Max Susp) 15 ml Q4H PRN PO; Start 10/08 at 11:15; Stop 11/07/16 at 11:14 Aspirin (Ecotrin Tab) 81 mg QAM PO Last administered on 10/10/16 08:21; Admin Dose 81 MG; Start 10/09/16 at 09:00; Stop 11/08/16 at 08:59 Ceftriaxone Sodium/Dextrose (Rocephin Inj/ Dextrose Add-[facility] 50ML) 50 ml @ 100 mls/hr Q24H IV Last administered on 10/10/16 13:06; Admin Dose 100 MLS/HR; Start 10/09/16 at 15:00; Stop 10/19/16 at 14:59 Citalopram Hydrobromide (celeXA TAB) 10 mg QAM PO Last administered on 08:21; Admin Dose 10 MG; Start 10/09/16 at 09:00; Stop 11/08/16 at 08:59 Dextrose (Dextrose 50% 50ML Syringe) 25-50ML OF 50% DW IV FOR... UD PRN IV; Start 10/08/16 at 11:30; Stop 11/07/16 at 11:29 Dextrose/Sodium Chloride (D5W And 1/2nss) 1,000 ml @ 100 mls/hr Q10H IV Last administered on 10/10/16 13:14; Admin Dose 100 MLS/HR; Start 10/10/16 at 12:30 ; Stop 11/09/16 at 12:29 Diphenhydramine HCl (Benadryl Inj) 25 mg Q6H PRN IV; Start 10/09/16 at 16:15; Stop 11/08/16 at 16:14 Fenofibrate (Tricor Tab) 145 mg QAM PO Last administered on 10/10/16 08:21; Admin Dose 145 MG; Start 10/09/16 at 09:00; Stop 11/08/16 at 08:59 Folic Acid (Folvite Tab) 400 mcg DAILY PO Last administered on 10/10/16 08:21; Admin Dose 400 MCG; Start 10/09/16 at 09:00; Stop 11/08/16 at 08:59 Gabapentin (Neurontin Cap) 1,200 mg HS PO Last administered on 10/09/16 21:25; Admin Dose 1,200 MG; Start 10/08/16 at 21:00; Stop 11/07/16 at 20:59 Glucagon (Glucagon Inj) 1 mg UD PRN SQ; Start 10/08/16 at 11:30; Stop 11/07/16 at 11:29 Glucose (Glucose 40% Gel) 15-30 GRAMS 15 GRAMS... UD PRN PO; Start 10/08/16 at 11:30; Stop 11/07/16 at 11:29 Glucose (Glucose Chew Tab) 4-8 Tablets 4 Tabl... UD PRN PO; Start 10/08/16 at 11:30; Stop 11/07/16 at 11:29 Heparin Sodium (Porcine) 5000 unit 5,000 unit Q12 SQ Last administered on 08:28; Admin Dose 5,000 UNIT; Start 10/09/16 at 21:00; Stop 11/08/16 at 20: 59 Hydrocortisone (Proctozone Hc 2.5% Crm) 1 appln Q4H PRN EXT; Start 10/10/16 at 09:00; Stop 11/09/16 at 08:59 Hydroxyurea (Hydrea Cap) 500 mg MoThSa@0900,1400,2100 PO Last administered on 13:06; Admin Dose 500 MG; Start 10/08/16 at 14:00; Stop 11/07/16 at 13: 59 Hydroxyurea (Hydrea Cap) 500 mg SuTuWeFr@0900,2100 PO Last administered on 21:24; Admin Dose 500 MG; Start 10/08/16 at 21:00; Stop 11/07/16 at 20:59; Status Future hold Insulin Aspart (novoLOG ASPART) SLIDING SCALE G... ACHS SC Last administered on 10/10/16 17:13; Admin Dose 2 UNITS; Start 10/08/16 at 16:30; Stop 11/07/16 at 16:29 Ioversol (Optiray 320) 111 ml UD PRN IV; Start 10/08/16 at 12:00; Stop at 11:59 Ketorolac Tromethamine (Toradol Inj) 15 mg Q6H PRN IV Last administered on 10/09 21:35; Admin Dose 15 MG; Start 10/09/16 at 11:15; Stop 10/14/16 at 11:14 Levothyroxine Sodium (Synthroid Tab) 25 mcg DAILYBB PO Last administered on 10/10 05:16; Admin Dose 25 MCG; Start 10/09/16 at 06:30; Stop 11/08/16 at 06:29 Methenamine Hippurate (Urex Tab) 1 gm BID PRN PO; Start 10/08/16 at 12:15; Stop 10/18/16 at 12:14 Metoprolol Tartrate (Lopressor Tab) 25 mg BID PO Last administered on 10/10/16 08:22; Admin Dose 25 MG; Start 10/08/16 at 21:00; Stop 11/07/16 at 20:59 Miscellaneous (Iv Fluids Completed) 1 ea PRN PRN N/A; Start 10/08/16 at 15:30; Stop 10/08/17 at 15:29 Nystatin (Mycostatin Powder) 1 appln PRN PRN EXT; Start 10/08/16 at 14:45; Stop 11/07/16 at 14:44 Nystatin 10 ml 10 ml TID PO Last administered on 10/10/16 14:26; Admin Dose 10 ML; Start 10/10/16 at 14:00; Stop 10/17/16 at 14:00 Ondansetron HCl 4 mg 4 mg Q6H IV. Last administered on 10/10/16 17:10; Admin Dose 4 MG; Start 10/09/16 at 11:15; Stop 11/08/16 at 11:14 Pantoprazole Sodium (Protonix Tab) 40 mg QAM PO Last administered on 10/10/16 08:22; Admin Dose 40 MG; Start 10/09/16 at 09:00; Stop 11/08/16 at 08:59 Promethazine HCl/ Sodium Chloride (Phenergan Inj/ Nss 50ml) 50.5 ml @ 204 mls/ hr Q6H PRN IV; Start 10/09/16 at 09:30; Stop 11/08/16 at 09:29 Ropinirole HCl (Requip Tab) 1 mg QAM PO Last administered on 10/10/16 08:22; Admin Dose 1 MG; Start 10/09/16 at 09:00; Stop 11/08/16 at 08:59 Ropinirole HCl (Requip Tab) 3 mg HS PO Last administered on 10/09/16 21:26; Admin Dose 3 MG; Start 10/08/16 at 21:00; Stop 11/07/16 at 20:59 Rosuvastatin Calcium (Crestor Tab) 5 mg QAM PO Last administered on 10/10/16 08 :21; Admin Dose 5 MG; Start 10/09/16 at 09:00; Stop 11/08/16 at 08:59 Tramadol HCl (Ultram Tab) 50 mg Q4H PRN PO; Start 10/09/16 at 11:15; Stop 11/08 at 11:14 (Marina Almonte MD) Objective Vital Signs Date Time Temp Pulse Resp B/P Pulse Ox O2 Delivery O2 Flow Rate FiO2 10/10/16 08:00 97 Room Air 10/10/16 07:21 36.8 68 16 134/86 97 Room Air 10/10/16 00:00 Room Air 10/09/16 23:01 36.8 70 16 153/69 98 Room Air 10/09/16 21:15 66 147/72 10/09/16 20:00 Room Air 10/09/16 16:00 Room Air 10/09/16 15:35 36.8 84 16 157/72 99 Room Air (Alexia Rodriguez PA-C) Physical Exam General Appearance: + mild distress (mild discomfort) Eyes: EOMI ENT: + pertinent finding (some white exudate noted on the tongue) Neck: no JVD Respiratory/Chest: lungs clear Cardiovascular: regular rate, rhythm Abdomen: soft, + pertinent finding (bowel sounds hyperactive. Tenderness to palpation noted in the suprapubic and left lower quadrant) Extremities: non-tender, no pedal edema Neurologic/Psychiatric: no motor/sensory deficits, oriented x 3 Skin: warm/dry (Alexia Rodriguez PA-C) Notes: nad, aox3, eomi, perrl s1 s2 rrr ctab no w/r/r abd soft nt/nd +BS no LE edema (Marina Almonte MD) Laboratory Results 10/10/16 06:42 Red Blood Count 2.81, Mean Corpuscular Volume 112.5, Mean Corpuscular Hemoglobin 38.4, Mean Corpuscular Hemoglobin Concent 34.2, Mean Platelet Volume 9.5, Neutrophils (%) (Auto) 63.5, Lymphocytes (%) (Auto) 24.9, Monocytes (%) ( Auto) 8.2, Eosinophils (%) (Auto) 1.7, Basophils (%) (Auto) 0.2, Neutrophils # ( Auto) 3.03, Lymphocytes # (Auto) 1.19, Monocytes # (Auto) 0.39, Eosinophils # ( Auto) 0.08, Basophils # (Auto) 0.01 10/10/16 06:42 Test 10/09/16 15:25 10/10/16 06:42 10/10/16 11:10 Prothrombin Time 12.4 SECONDS (9.0-12.0) Prothromb Time International Ratio 1.2 (0.9-1.1) Activated Partial Thromboplast Time 27.7 SECONDS (21.0-31.0) Partial Thromboplastin Ratio 1.1 White Blood Count 4.77 K/uL (4.8-10.8) Red Blood Count 2.81 M/uL (4.2-5.4) Hemoglobin 10.8 g/dL (12.0-16.0) Hematocrit 31.6 % (37-47) Mean Corpuscular Volume 112.5 fL (80-100) Mean Corpuscular Hemoglobin 38.4 pg (25-34) Mean Corpuscular Hemoglobin Concent 34.2 g/dl (32-36) Platelet Count 392 K/uL (130-400) Mean Platelet Volume 9.5 fL (7.4-10.4) Neutrophils (%) (Auto) 63.5 % Lymphocytes (%) (Auto) 24.9 % Monocytes (%) (Auto) 8.2 % Eosinophils (%) (Auto) 1.7 % Basophils (%) (Auto) 0.2 % Neutrophils # (Auto) 3.03 K/uL (1.4-6.5) Lymphocytes # (Auto) 1.19 K/uL (1.2-3.4) Monocytes # (Auto) 0.39 K/uL (0.11-0.59) Eosinophils # (Auto) 0.08 K/uL (0-0.5) Basophils # (Auto) 0.01 K/uL (0-0.2) RDW Standard Deviation 60.8 fL (36.4-46.3) RDW Coefficient of Variation 15.0 % (11.5-14.5) Immature Granulocyte % (Auto) 1.5 % Immature Granulocyte # (Auto) 0.07 K/uL (0.00-0.02) Hypersegmented Polys 1+ Macrocytosis PRESENT Anion Gap 10.0 mmol/L (3-11) Est Creatinine Clear Calc Drug Dose 62.4 ml/min Estimated GFR () 83.8 Estimated GFR (Non- 72.3 BUN/Creatinine Ratio 18.9 (10-20) Calcium Level 7.9 mg/dl (8.5-10.1) Bedside Glucose 145 mg/dl (70-90) Last 24 Hours Test 10/09/16 11:18 10/09/16 15:25 10/09/16 16:19 10/09/16 20:11 Bedside Glucose 131 mg/dl 115 mg/dl 118 mg/dl Prothrombin Time 12.4 SECONDS Prothromb Time International Ratio 1.2 Activated Partial Thromboplast Time 27.7 SECONDS Partial Thromboplastin Ratio 1.1 Test 10/10/16 06:42 10/10/16 07:24 White Blood Count 4.77 K/uL Red Blood Count 2.81 M/uL Hemoglobin 10.8 g/dL Hematocrit 31.6 % Mean Corpuscular Volume 112.5 fL Mean Corpuscular Hemoglobin 38.4 pg Mean Corpuscular Hemoglobin Concent 34.2 g/dl Platelet Count 392 K/uL Mean Platelet Volume 9.5 fL Neutrophils (%) (Auto) 63.5 % Lymphocytes (%) (Auto) 24.9 % Monocytes (%) (Auto) 8.2 % Eosinophils (%) (Auto) 1.7 % Basophils (%) (Auto) 0.2 % Neutrophils # (Auto) 3.03 K/uL Lymphocytes # (Auto) 1.19 K/uL Monocytes # (Auto) 0.39 K/uL Eosinophils # (Auto) 0.08 K/uL Basophils # (Auto) 0.01 K/uL RDW Standard Deviation 60.8 fL RDW Coefficient of Variation 15.0 % Immature Granulocyte % (Auto) 1.5 % Immature Granulocyte # (Auto) 0.07 K/uL Hypersegmented Polys 1+ Macrocytosis PRESENT Sodium Level 143 mmol/L Potassium Level 4.5 mmol/L Chloride Level 115 mmol/L Carbon Dioxide Level 18 mmol/L Anion Gap 10.0 mmol/L Blood Urea Nitrogen 15 mg/dl Creatinine 0.78 mg/dl Est Creatinine Clear Calc Drug Dose 62.4 ml/min Estimated GFR () 83.8 Estimated GFR (Non- 72.3 BUN/Creatinine Ratio 18.9 Random Glucose 138 mg/dl Calcium Level 7.9 mg/dl Bedside Glucose 138 mg/dl (Alexia Rodriguez, GAILC) Assessment and Plan 81-year-old female with past medical history as noted above presents the emergency department with nausea, vomiting, diarrhea, abdominal pain and flank pain. Nausea, vomiting, likely viral. C. difficile negative. Stool cultures neg. CT shows no signs of SBO or diverticulitis -slowly improving. Decrease in number of BMs overnight -Continue Full liquids -change IVF to D5 1/2 NS @ 100 cc/hr -Change zofran back to 4 mg IV q 6 PRN -Phenergan 12.5 mg IV every 6 hours as needed added yesterday -developed rash with cipro yesterday. Since stool cx neg, will d/c -D/C flagyl UTI-urine cx more than 3 organisms -changed to ceftriaxone 10/09. Day 10/04 -Methanamine on hold Hematuria-recent biopsy consistent with chronic cystitis. No malignancy seen. Urine still bloody today H&H stable -urology consult -Concerned that the pt have been off of her AC for hx PE -no increase in hematuria with the addition of Heparin 5000 u BID yesterday Coronary artery disease status post pacemaker -Continue aspirin 81 mg daily -Continue Lopressor 25 mg BID -Continue Crestor 5 mg daily diabetes mellitus-BSGs stable -BSGs q 6 h -insulin sliding scale -Hold home dose of Januvia History of CHF-EF unknown. No decompensation noted -Lasix 40 mg daily, metolazone 2.5 mg as needed on hold Seizure disorder -Continue Carbatrol ER 300 mg twice daily History of PE/DVT -Home dose Lovenox 60 units subcutaneous BID on hold -heparin 5000 u subQ BID started 10/09. If ok with urology, would like to start back on home dose of Lovenox tomorrow Hypothyroidism -Continue Synthroid 25 g daily Oral candidiasis -Nystatin 10 mL swish and spit TID x 7 days DVT prophylaxis -Heparin 5000 u BID -TEDS CODE STATUS -LEVEL V DO NO RESUSCITATE (Alexia Rodriguez, PA-C) Agree with the PA exam, assessment and plan with the following additions and clarifications. 1. Hematuria - s/p bladder biopsy - although not unusual post-biopsy, patient has had recurrent hematuria, even prior to biopsy and is the reason why she had the biopsy as I was told - she is on chronic anticoagulation and requires indefinite anticoagulation due to factor 5 leiden deficiency - currently being held due to hematuria but does have an IVC filter - I have also ordered SCDs to be placed for dvt ppx and advised her to move around as much as possible - await urology recs - UA without any evidence of pyuria, just RBCs 2. Diarrhea - negative C diff, negative culture - awaiting O&P - nausea resolved, will continue to hydrate - switched IVF to d5 1/2 nss - cipro and flagyl now off - FOBT is positive (stool and urine were collected separately to minimize contamination), Hb stable for the past 2 days - will consult GI if diarrhea does not improve 3. Possible UTI - no e/o infection on UA - received cipro/flagyl for 2 days and currently on rocephin for 2 days as well - she should be adequately covered for cystitis - no e/o pyelonephritis on imaging Rest of A/P per PA note. (Marina Almonte MD)
[2016-10-10] MEDS: CEFTRIAXONE SOD INJ 1000 MG in DEXTROSE 5% 50ML IV SCH (13:06)
[2016-10-10] MEDS: D5W AND 1/2NSS 1,000 ML IV SCH ×2 (13:14→21:53)
--- NOTE | 2016-10-10 13:25 | Urology Consultation ---
History General Date of Service: Oct 10, 2016. Primary Care Physician: Yan Randolph History of Present Illness Patient's a 81-year-old white female who is approximately 2 weeks post cystoscopy with bladder biopsy and fulguration. She was admitted to the hospital with abdominal pain right flank pain nausea vomiting and diarrhea progressed to see the patient because of some gross hematuria. Patient says she is voiding okay at the moment. Is not having any dysuria. Laboratory Last 24 Hours Test 10/09/16 15:25 10/09/16 16:19 10/09/16 20:11 10/10/16 06:42 Prothrombin Time 12.4 SECONDS Prothromb Time International Ratio 1.2 Activated Partial Thromboplast Time 27.7 SECONDS Partial Thromboplastin Ratio 1.1 Bedside Glucose 115 mg/dl 118 mg/dl White Blood Count 4.77 K/uL Red Blood Count 2.81 M/uL Hemoglobin 10.8 g/dL Hematocrit 31.6 % Mean Corpuscular Volume 112.5 fL Mean Corpuscular Hemoglobin 38.4 pg Mean Corpuscular Hemoglobin Concent 34.2 g/dl Platelet Count 392 K/uL Mean Platelet Volume 9.5 fL Neutrophils (%) (Auto) 63.5 % Lymphocytes (%) (Auto) 24.9 % Monocytes (%) (Auto) 8.2 % Eosinophils (%) (Auto) 1.7 % Basophils (%) (Auto) 0.2 % Neutrophils # (Auto) 3.03 K/uL Lymphocytes # (Auto) 1.19 K/uL Monocytes # (Auto) 0.39 K/uL Eosinophils # (Auto) 0.08 K/uL Basophils # (Auto) 0.01 K/uL RDW Standard Deviation 60.8 fL RDW Coefficient of Variation 15.0 % Immature Granulocyte % (Auto) 1.5 % Immature Granulocyte # (Auto) 0.07 K/uL Hypersegmented Polys 1+ Macrocytosis PRESENT Sodium Level 143 mmol/L Potassium Level 4.5 mmol/L Chloride Level 115 mmol/L Carbon Dioxide Level 18 mmol/L Anion Gap 10.0 mmol/L Blood Urea Nitrogen 15 mg/dl Creatinine 0.78 mg/dl Est Creatinine Clear Calc Drug Dose 62.4 ml/min Estimated GFR () 83.8 Estimated GFR (Non- 72.3 BUN/Creatinine Ratio 18.9 Random Glucose 138 mg/dl Calcium Level 7.9 mg/dl Test 10/10/16 07:24 10/10/16 11:10 10/10/16 12:10 Bedside Glucose 138 mg/dl 145 mg/dl Stool Occult Blood POSITIVE Problem List Medical Problems: (1) Bladder mass Status: Acute (2) Current use of longterm anticoagulation Status: Acute (3) Dehydration Status: Acute (4) Hematuria Status: Acute (5) Hematuria Status: Acute (6) History of DVT of lower extremity Status: Acute (7) Nausea, vomiting, and diarrhea Status: Acute (8) UTI (urinary tract infection) Status: Acute (9) Weak Status: Acute Family History Cancer Diabetes mellitus Heart disease Hypertension Kidney disease Kidney stones Social History Hx Tobacco Use In Past Year?: No Marital status: Housing status: lives with family Occupation status: unemployed Allergies Coded Allergies: Butorphanol (Verified Allergy, Intermediate, HIVES, 10/08/16) Chlorzoxazone (Verified Allergy, Intermediate, HIVES, 10/08/16) Erythromycin (Verified Allergy, Intermediate, HIVES, 10/08/16) Naloxone (Verified Allergy, Intermediate, HIVES, 10/08/16) Nitrofurantoin (Verified Allergy, Intermediate, HIVES, 10/08/16) Pentazocine (Verified Allergy, Intermediate, HIVES, 10/08/16) Diazepam (Verified Adverse Reaction, Unknown, FELLS LIKE CRAWLING UP A WALL, 10/08/16) Medications Home Medications: Home Meds and Scripts Medications Dose Route/Sig Max Daily Dose Days Date Category Dose Instructions Zofran Odt (Ondansetron HCl) 4 Mg Tab 4 Mg SL Q6H 10/08/16 Rx Niacin 500 Mg Tab 500 Mg PO QAM 10/08/16 Reported Hydroxyurea 500 Mg Cap 500 Mg PO UD 10/08/16 Reported TAKE 500 MG TID ON MONDAY, MONDAY, AND MONDAY. Caltrate 600+D (Calcium Carbonate-Cholecalcife) 1 Tab Tab 1 Tab PO DAILY 10/08/16 Reported Requip (Ropinirole HCl) 1 Mg Tab 3 Mg PO HS 10/06/16 Reported Methenamine Hippurate 1 Gm Tab 1 Gm PO BID PRN 10/06/16 Reported Vitamin C (Ascorbic Acid) 1,000 Mg Tab 1,000 Mg PO BID 10/06/16 Reported Oxygen Gas 2 Liters NA HS 2/15/17 Reported Aspirin Ec (Aspirin) 81 Mg Tab 81 Mg PO QAM 08/27/16 Reported Dora-3 (Fish Oil) 1 Ea Cap 1 Cap PO BID 08/27/16 Reported Citalopram Hydrobromide 10 Mg Tab 10 Mg PO QAM 08/27/16 Reported Preservision Areds 2 (Multiple Vitamins W/ Minerals) 1 Cap Cap 1 Cap PO BID 08/27/16 Reported Levothyroxine Sodium 25 Mcg Tab 25 Mcg PO QAM 08/27/16 Reported Carbatrol Er (Carbamazepine) 200 Mg Capcr 300 Mg PO BID 08/27/16 Reported Neurontin (Gabapentin) 300 Mg Cap 1,200 Mg PO HS 08/27/16 Reported Ropinirole HCl 1 Mg Tab 1 Mg PO QAM 08/27/16 Reported Zaroxolyn (Metolazone) 2.5 Mg Tab 2.5 Mg PO PRN 08/27/16 Reported Lasix (Furosemide) 40 Mg Tab 40 Mg PO QAM 08/27/16 Reported Tricor (Fenofibrate) 145 Mg Tab 145 Mg PO QAM 08/27/16 Reported Crestor (Rosuvastatin Calcium) 5 Mg Tab 5 Mg PO QAM 08/27/16 Reported Folvite (Folic Acid) 1 Mg Tab 400 Mcg PO QAM 08/27/16 Reported Hydrea Cap (Hydroxyurea) 500 Mg Cap 500 Mg PO UD 08/27/16 Reported TAKE 500 MG BID ON MONDAY, MONDAY, MONDAY, AND MONDAY. Protonix (Pantoprazole Sodium) 40 Mg Tab 40 Mg PO QAM 08/27/16 Reported Lopressor (Metoprolol Tartrate) 25 Mg Tab 25 Mg PO BID 08/27/16 Reported Januvia (Sitagliptin Phosphate) 100 Mg Tab 100 Mg PO QAM 08/27/16 Reported Inpatient Medications: Current Inpatient Medications Medications (Trade) Dose Ordered Sig/Tone Route Start Time Stop Time Status Last Admin Dose Admin Acetaminophen (Tylenol Tab) 650 mg Q4H PRN PO 10/08/16 11:15 11/07/16 11:14 10/09/16 08:59 650 MG Al Hydrox/Mg Hydrox/Simethicone (Maalox Max Susp) 15 ml Q4H PRN PO 10/08/16 11:15 11/07/16 11:14 Insulin Aspart (novoLOG ASPART) SLIDING SCALE G... ACHS SC 10/08/16 16:30 11/07/16 16:29 10/10/16 13:05 3 UNITS Glucose (Glucose 40% Gel) 15-30 GRAMS 15 GRAMS... UD PRN PO 10/08/16 11:30 11/07/16 11:29 Glucose (Glucose Chew Tab) 4-8 Tablets 4 Tabl... UD PRN PO 10/08/16 11:30 11/07/16 11:29 Dextrose (Dextrose 50% 50ML Syringe) 25-50ML OF 50% DW IV FOR... UD PRN IV 10/08/16 11:30 11/07/16 11:29 Glucagon (Glucagon Inj) 1 mg UD PRN SQ 10/08/16 11:30 11/07/16 11:29 Ioversol (Optiray 320) 111 ml UD PRN IV 10/08/16 12:00 10/12/16 11:59 Aspirin (Ecotrin Tab) 81 mg QAM PO 10/09/16 09:00 11/08/16 08:59 10/10/16 08:21 81 MG Fenofibrate (Tricor Tab) 145 mg QAM PO 10/09/16 09:00 11/08/16 08:59 10/10/16 08:21 145 MG Folic Acid (Folvite Tab) 400 mcg DAILY PO 10/09/16 09:00 11/08/16 08:59 10/10/16 08:21 400 MCG Gabapentin (Neurontin Cap) 1,200 mg HS PO 10/08/16 21:00 11/07/16 20:59 10/09/16 21:25 1,200 MG Hydroxyurea (Hydrea Cap) 500 mg SuTuWeFr@0900,2100 PO 10/08/16 21:00 11/07/16 20:59 Future hold 10/09/16 21:24 500 MG Levothyroxine Sodium (Synthroid Tab) 25 mcg DAILYBB PO 10/09/16 06:30 11/08/16 06:29 10/10/16 05:16 25 MCG Methenamine Hippurate (Urex Tab) 1 gm BID PRN PO 10/08/16 12:15 10/18/16 12:14 Metoprolol Tartrate (Lopressor Tab) 25 mg BID PO 10/08/16 21:00 11/07/16 20:59 10/10/16 08:22 25 MG Pantoprazole Sodium (Protonix Tab) 40 mg QAM PO 10/09/16 09:00 11/08/16 08:59 10/10/16 08:22 40 MG Ropinirole HCl (Requip Tab) 3 mg HS PO 10/08/16 21:00 11/07/16 20:59 10/09/16 21:26 3 MG Ropinirole HCl (Requip Tab) 1 mg QAM PO 10/09/16 09:00 11/08/16 08:59 10/10/16 08:22 1 MG Rosuvastatin Calcium (Crestor Tab) 5 mg QAM PO 10/09/16 09:00 11/08/16 08:59 10/10/16 08:21 5 MG Citalopram Hydrobromide (celeXA TAB) 10 mg QAM PO 10/09/16 09:00 11/08/16 08:59 10/10/16 08:21 10 MG Hydroxyurea (Hydrea Cap) 500 mg MoThSa@0900,1400,2100 PO 10/08/16 14:00 11/07/16 13:59 10/10/16 13:06 500 MG Nystatin (Mycostatin Powder) 1 appln PRN PRN EXT 10/08/16 14:45 11/07/16 14:44 Miscellaneous (Iv Fluids Completed) 1 ea PRN PRN N/A 10/08/16 15:30 10/08/17 15:29 Ondansetron HCl 4 mg 4 mg Q6H IV. 10/09/16 11:15 11/08/16 11:14 10/10/16 11:30 4 MG Promethazine HCl/ Sodium Chloride (Phenergan Inj/ Nss 50ml) 50.5 ml @ 204 mls/hr Q6H PRN IV 10/09/16 09:30 11/08/16 09:29 Tramadol HCl (Ultram Tab) 50 mg Q4H PRN PO 10/09/16 11:15 11/08/16 11:14 Ketorolac Tromethamine (Toradol Inj) 15 mg Q6H PRN IV 10/09/16 11:15 10/14/16 11:14 10/09/16 21:35 15 MG Heparin Sodium (Porcine) 5000 unit 5,000 unit Q12 SQ 10/09/16 21:00 11/08/16 20:59 10/10/16 08:28 5,000 UNIT Ceftriaxone Sodium/Dextrose (Rocephin Inj/ Dextrose Add-[place] 50ML) 50 ml @ 100 mls/hr Q24H IV 10/09/16 15:00 10/19/16 14:59 10/10/16 13:06 100 MLS/HR Diphenhydramine HCl (Benadryl Inj) 25 mg Q6H PRN IV 10/09/16 16:15 11/08/16 16:14 Hydrocortisone (Proctozone Hc 2.5% Crm) 1 appln Q4H PRN EXT 10/10/16 09:00 11/09/16 08:59 Nystatin 10 ml 10 ml TID PO 10/10/16 14:00 10/17/16 14:00 Dextrose/Sodium Chloride (D5W And 1/2nss) 1,000 ml @ 100 mls/hr Q10H IV 10/10/16 12:30 11/09/16 12:29 10/10/16 13:14 100 MLS/HR Review of Systems Review of Systems Additional Comments: Review of systems was reviewed from her admitting history and physical Physical Exam Vital Signs: Vital Signs Past 12 Hours Date Time Temp Pulse Resp B/P Pulse Ox O2 Delivery O2 Flow Rate FiO2 10/10/16 08:00 97 Room Air 10/10/16 07:21 36.8 68 16 134/86 97 Room Air Physical Exam: General Appearance: WD/WN, no apparent distress Eyes: bilateral eyes normal inspection ENT: hearing grossly normal Gastrointestinal: Abdomen: diffuse (patient has some diffuse abdominal tenderness to palpation ) Bladder: normal bladder Neurologic/Psychiatric: alert, normal mood/affect Skin: normal color, warm/dry Assessment & Plan Assessment & Plan Assessment Gross hematuria post bladder biopsy Patient had a CAT scan which was negative in the urinary tracts with the exception of bilateral renal simple cysts and some sediment in the bladder which is probably old blood clot At this point the patient said she is voiding okay so I don't think she needs to have a catheter. It is fairly common to have bleeding 2-3 weeks post any type of bladder biopsy or resection of tumor as the clot lyse Recommend hydrating the patient Check a urine culture to rule out infection If the patient goes into clot retention she would need catheter and bladder irrigation
[2016-10-10] MEDS: NYSTATIN SUSP 500,000 U/5 ML UDC PO SCH ×2 (14:26→21:16)
[2016-10-10 14:36] LABS: MANUAL MICROSCOPIC REQUIRED? YES; URINE APPEARANCE CLOUDY (CLEAR); URINE COLOR AMBER; URINE PH 6.5 (4.5-7.5); URINE SPECIFIC GRAVITY 1.025 (1.000-1.030); UROBILINOGEN NEG (NEG)
[2016-10-10 14:55] LABS: REVIEW REQ? NO; SULFASALICYLIC ACID POS (NEG); URINE BILIRUBIN NEG (NEG)
[2016-10-10 14:58] VITALS: BP 121/74; PULSE 67; TEMP 36.8; O2SAT 98
[2016-10-10 15:09] LABS: URINE BACTERIA NEG (NEG); URINE WBC 0 /hpf (0-5)
[2016-10-10] MEDS: ACETAMINOPHEN 325 MG TAB PO PRN (15:51)
[2016-10-10 21:09] VITALS: BP 148/84; PULSE 92
[2016-10-10] MEDS: GABAPENTIN 300 MG CAP PO SCH (21:16)
[2016-10-11 00:15] VITALS: BP 114/65; PULSE 72; TEMP 36.7; O2SAT 98
[2016-10-11] MEDS: ONDANSETRON INJ 2 MG/ML 2 ML VIAL IV. SCH ×4 (05:30→23:17)
[2016-10-11] MEDS: LEVOTHYROXINE 25 MCG TAB PO SCH (05:30)
[2016-10-11 07:52] VITALS: BP 109/73; PULSE 65; TEMP 36.6; O2SAT 97
[2016-10-11 07:59] LABS: BASO % 0.2 %; BASO ABS # 0.01 K/uL (0-0.2); EOS % 2.3 %; HEMATOCRIT 32.5 % (37-47); IG% 0.7 %; LYMPH % 22.3 %; LYMPH ABS # 1.37 K/uL (1.2-3.4); MEAN CELL VOLUME 110.5 fL (80-100); MEAN CORPUSCULAR HEMOGLOBIN 38.1 pg (25-34); MEAN CORPUSCULAR HGB CONC 34.5 g/dl (32-36); MONO % 6.3 %; NEUT % 68.2 %; PLATELET COUNT 404 K/uL (130-400); RED BLOOD COUNT 2.94 M/uL (4.2-5.4); WHITE BLOOD COUNT 6.15 K/uL (4.8-10.8)
[2016-10-11] MEDS: FENOFIBRATE 145 MG TAB PO SCH (08:11)
[2016-10-11] MEDS: PANTOprazole SOD 40 MG TAB PO SCH (08:11)
[2016-10-11] MEDS: D5W AND 1/2NSS 1,000 ML IV SCH ×2 (08:11→17:06)
[2016-10-11] MEDS: FoLIC ACID TAB 400 MCG TAB PO SCH (08:12)
[2016-10-11] MEDS: ROPINIROLE HCL 1 MG TAB PO SCH ×2 (08:12→21:02)
[2016-10-11] MEDS: CITALOPRAM 20 MG TAB PO SCH (08:12)
[2016-10-11] MEDS: METOPROLOL TARTRATE 25 MG TAB PO SCH ×2 (08:12→21:00)
[2016-10-11] MEDS: ASPIRIN 81 MG ECTAB PO SCH (08:12)
[2016-10-11] MEDS: ROSUVASTATIN CALCIUM 10 MG TAB PO SCH (08:12)
[2016-10-11] MEDS: NYSTATIN SUSP 500,000 U/5 ML UDC PO SCH ×3 (08:21→21:00)
[2016-10-11] MEDS: INSULIN ASPART 100 UNITS/ML 3 ML PEN SC SCH ×4 (08:23→21:00)
[2016-10-11] MEDS: HYDROXYUREA 500 MG CAP PO SCH ×2 (08:23→21:06)
[2016-10-11] MEDS: HEPARIN SOD 5000 UNIT/0.5 ML CARP SQ SCH ×2 (08:24→21:06)
[2016-10-11 08:28] LABS: COMPLETE YES; OVALOCYTES 1+
[2016-10-11 08:29] LABS: CALCIUM 8.5 mg/dl (8.5-10.1); CREATININE 0.72 mg/dl (0.60-1.20); POTASSIUM 4.3 mmol/L (3.5-5.1)
--- NOTE | 2016-10-11 10:03 | Progress Note ---
Subjective Date of Service: Oct 11, 2016. Subjective Pt evaluation today including: conversation w/ patient, physical exam, chart review, lab review, review of studies, conversation w/ commercial sales consultant Still having diarrhea, somewhat better but still every 30 mins to an hour overnight. She has not noted her urine color and doesn't know if it's still bright red. No fevers. Feels tired. No lightheadedness. No chest pain, no sob. Problem List Medical Problems: (1) Bladder mass Status: Acute (2) Current use of detention anticoagulation Status: Acute (3) Dehydration Status: Acute (4) Hematuria Status: Acute (5) Hematuria Status: Acute (6) History of DVT of lower extremity Status: Acute (7) Nausea, vomiting, and diarrhea Status: Acute (8) UTI (urinary tract infection) Status: Acute (9) Weak Status: Acute Review of Systems All Other Systems: Reviewed and Negative Medications Acetaminophen (Tylenol Tab) 650 mg Q4H PRN PO Last administered on 10/10/16 15:51; Admin Dose 650 MG; Start 10/08/16 at 11:15; Stop 11/07/16 at 11:14 Al Hydrox/Mg Hydrox/Simethicone (Maalox Max Susp) 15 ml Q4H PRN PO; Start 10/08 at 11:15; Stop 11/07/16 at 11:14 Aspirin (Ecotrin Tab) 81 mg QAM PO Last administered on 10/11/16 08:12; Admin Dose 81 MG; Start 10/09/16 at 09:00; Stop 11/08/16 at 08:59 Ceftriaxone Sodium/Dextrose (Rocephin Inj/ Dextrose Add-[place] 50ML) 50 ml @ 100 mls/hr Q24H IV Last administered on 10/10/16 13:06; Admin Dose 100 MLS/HR; Start 10/09/16 at 15:00; Stop 10/19/16 at 14:59 Citalopram Hydrobromide (celeXA TAB) 10 mg QAM PO Last administered on 08:12; Admin Dose 10 MG; Start 10/09/16 at 09:00; Stop 11/08/16 at 08:59 Dextrose (Dextrose 50% 50ML Syringe) 25-50ML OF 50% DW IV FOR... UD PRN IV; Start 10/08/16 at 11:30; Stop 11/07/16 at 11:29 Dextrose/Sodium Chloride (D5W And 1/2nss) 1,000 ml @ 100 mls/hr Q10H IV Last administered on 10/11/16 08:11; Admin Dose 100 MLS/HR; Start 10/10/16 at 12:30 ; Stop 11/09/16 at 12:29 Diphenhydramine HCl (Benadryl Inj) 25 mg Q6H PRN IV; Start 10/09/16 at 16:15; Stop 11/08/16 at 16:14 Fenofibrate (Tricor Tab) 145 mg QAM PO Last administered on 10/11/16 08:11; Admin Dose 145 MG; Start 10/09/16 at 09:00; Stop 11/08/16 at 08:59 Folic Acid (Folvite Tab) 400 mcg DAILY PO Last administered on 10/11/16 08:12; Admin Dose 400 MCG; Start 10/09/16 at 09:00; Stop 11/08/16 at 08:59 Gabapentin (Neurontin Cap) 1,200 mg HS PO Last administered on 10/10/16 21:16; Admin Dose 1,200 MG; Start 10/08/16 at 21:00; Stop 11/07/16 at 20:59 Glucagon (Glucagon Inj) 1 mg UD PRN SQ; Start 10/08/16 at 11:30; Stop 11/07/16 at 11:29 Glucose (Glucose 40% Gel) 15-30 GRAMS 15 GRAMS... UD PRN PO; Start 10/08/16 at 11:30; Stop 11/07/16 at 11:29 Glucose (Glucose Chew Tab) 4-8 Tablets 4 Tabl... UD PRN PO; Start 10/08/16 at 11:30; Stop 11/07/16 at 11:29 Heparin Sodium (Porcine) 5000 unit 5,000 unit Q12 SQ Last administered on 08:24; Admin Dose 5,000 UNIT; Start 10/09/16 at 21:00; Stop 11/08/16 at 20: 59 Hydrocortisone (Proctozone Hc 2.5% Crm) 1 appln Q4H PRN EXT; Start 10/10/16 at 09:00; Stop 11/09/16 at 08:59 Hydroxyurea (Hydrea Cap) 500 mg MoThSa@0900,1400,2100 PO Last administered on 21:16; Admin Dose 500 MG; Start 10/08/16 at 14:00; Stop 11/07/16 at 13: 59 Hydroxyurea (Hydrea Cap) 500 mg SuTuWeFr@0900,2100 PO Last administered on 08:23; Admin Dose 500 MG; Start 10/08/16 at 21:00; Stop 11/07/16 at 20:59; Status Future hold Insulin Aspart (novoLOG ASPART) SLIDING SCALE G... ACHS SC Last administered on 10/11/16 08:23; Admin Dose 2 UNITS; Start 10/08/16 at 16:30; Stop 11/07/16 at 16:29 Ioversol (Optiray 320) 111 ml UD PRN IV; Start 10/08/16 at 12:00; Stop at 11:59 Ketorolac Tromethamine (Toradol Inj) 15 mg Q6H PRN IV Last administered on 10/09 21:35; Admin Dose 15 MG; Start 10/09/16 at 11:15; Stop 10/14/16 at 11:14 Levothyroxine Sodium (Synthroid Tab) 25 mcg DAILYBB PO Last administered on 10/11 05:30; Admin Dose 25 MCG; Start 10/09/16 at 06:30; Stop 11/08/16 at 06:29 Methenamine Hippurate (Urex Tab) 1 gm BID PRN PO; Start 10/08/16 at 12:15; Stop 10/18/16 at 12:14 Metoprolol Tartrate (Lopressor Tab) 25 mg BID PO Last administered on 10/11/16 08:12; Admin Dose 25 MG; Start 10/08/16 at 21:00; Stop 11/07/16 at 20:59 Miscellaneous (Iv Fluids Completed) 1 ea PRN PRN N/A; Start 10/08/16 at 15:30; Stop 10/08/17 at 15:29 Nystatin (Mycostatin Powder) 1 appln PRN PRN EXT; Start 10/08/16 at 14:45; Stop 11/07/16 at 14:44 Nystatin 10 ml 10 ml TID PO Last administered on 10/11/16 08:21; Admin Dose 10 ML; Start 10/10/16 at 14:00; Stop 10/17/16 at 14:00 Ondansetron HCl 4 mg 4 mg Q6H IV. Last administered on 10/11/16 05:30; Admin Dose 4 MG; Start 10/09/16 at 11:15; Stop 11/08/16 at 11:14 Pantoprazole Sodium (Protonix Tab) 40 mg QAM PO Last administered on 10/11/16 08:11; Admin Dose 40 MG; Start 10/09/16 at 09:00; Stop 11/08/16 at 08:59 Promethazine HCl/ Sodium Chloride (Phenergan Inj/ Nss 50ml) 50.5 ml @ 204 mls/ hr Q6H PRN IV; Start 10/09/16 at 09:30; Stop 11/08/16 at 09:29 Ropinirole HCl (Requip Tab) 1 mg QAM PO Last administered on 10/11/16 08:12; Admin Dose 1 MG; Start 10/09/16 at 09:00; Stop 11/08/16 at 08:59 Ropinirole HCl (Requip Tab) 3 mg HS PO Last administered on 10/10/16 21:13; Admin Dose 3 MG; Start 10/08/16 at 21:00; Stop 11/07/16 at 20:59 Rosuvastatin Calcium (Crestor Tab) 5 mg QAM PO Last administered on 10/11/16 08 :12; Admin Dose 5 MG; Start 10/09/16 at 09:00; Stop 11/08/16 at 08:59 Tramadol HCl (Ultram Tab) 50 mg Q4H PRN PO; Start 10/09/16 at 11:15; Stop 11/08 at 11:14 Objective Vital Signs Date Time Temp Pulse Resp B/P Pulse Ox O2 Delivery O2 Flow Rate FiO2 10/11/16 08:40 Room Air 10/11/16 07:52 36.6 65 18 109/73 97 Room Air 10/11/16 00:15 36.7 72 18 114/65 98 Room Air 10/11/16 00:00 Room Air 10/10/16 21:09 92 148/84 10/10/16 16:00 Room Air 10/10/16 14:58 36.8 67 18 121/74 98 Room Air Physical Exam Comments: nad, aox3, walking with a walker without dyspnea or imbalance eomi, perrl s1 s2 rrr ctab no w/r/r abd soft nd nt +BS no LE edema Laboratory Results Last 24 Hours Test 10/10/16 11:10 10/10/16 12:10 10/10/16 14:05 10/10/16 16:23 Bedside Glucose 145 mg/dl 122 mg/dl Stool Occult Blood POSITIVE Urine Color VENU Urine Appearance CLOUDY Urine pH 6.5 Urine Specific [place] 1.025 Urine Protein Urine Glucose (UA) NEG Urine Ketones Urine Occult Blood Urine Nitrite Urine Bilirubin NEG Urine Urobilinogen NEG Urine Leukocyte Esterase Urine RBC 10-30 /hpf Urine WBC 0 /hpf Urine Epithelial Cells 0-5 /lpf Urine Bacteria NEG Test 10/10/16 20:25 10/11/16 07:30 10/11/16 07:43 Bedside Glucose 133 mg/dl 137 mg/dl White Blood Count 6.15 K/uL Red Blood Count 2.94 M/uL Hemoglobin 11.2 g/dL Hematocrit 32.5 % Mean Corpuscular Volume 110.5 fL Mean Corpuscular Hemoglobin 38.1 pg Mean Corpuscular Hemoglobin Concent 34.5 g/dl Platelet Count 404 K/uL Mean Platelet Volume 10.0 fL Neutrophils (%) (Auto) 68.2 % Lymphocytes (%) (Auto) 22.3 % Monocytes (%) (Auto) 6.3 % Eosinophils (%) (Auto) 2.3 % Basophils (%) (Auto) 0.2 % Neutrophils # (Auto) 4.20 K/uL Lymphocytes # (Auto) 1.37 K/uL Monocytes # (Auto) 0.39 K/uL Eosinophils # (Auto) 0.14 K/uL Basophils # (Auto) 0.01 K/uL RDW Standard Deviation 61.0 fL RDW Coefficient of Variation 15.4 % Immature Granulocyte % (Auto) 0.7 % Immature Granulocyte # (Auto) 0.04 K/uL Macrocytosis PRESENT Ovalocytes 1+ Sodium Level 140 mmol/L Potassium Level 4.3 mmol/L Chloride Level 113 mmol/L Carbon Dioxide Level 15 mmol/L Anion Gap 12.0 mmol/L Blood Urea Nitrogen 11 mg/dl Creatinine 0.72 mg/dl Est Creatinine Clear Calc Drug Dose 67.3 ml/min Estimated GFR () 92.3 Estimated GFR (Non- 79.7 BUN/Creatinine Ratio 15.0 Random Glucose 127 mg/dl Calcium Level 8.5 mg/dl Assessment and Plan 1. Hematuria - s/p bladder biopsy, no e/o malignancy from prior work-up - although not unusual post-biopsy, patient has had recurrent hematuria, even prior to biopsy and is the reason why she had the biopsy as I was told - she is on chronic anticoagulation and requires indefinite anticoagulation due to factor 5 leiden deficiency - currently being held due to hematuria but does have an IVC filter - I have also ordered SCDs to be placed for dvt ppx and advised her to move around as much as possible - urology recs noted - UA without any evidence of pyuria, just RBCs 2. Diarrhea - negative C diff, negative culture - awaiting O&P - nausea resolved, will continue to hydrate - switched IVF to d5 1/2 nss - cipro and flagyl now off - FOBT is positive (stool and urine were collected separately to minimize contamination), Hb stable for the past 2 days - GI consulted - last colonoscopy within the last 3-4 months along with EGD from [place] 3. Possible UTI - no e/o infection on UA - received cipro/flagyl for 2 days and currently on rocephin for 2 days as well - she should be adequately covered for cystitis/ lower uti - no e/o pyelonephritis on imaging 4. 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 CHF - unknown EF - compensated and appears euvolemic
--- NOTE | 2016-10-11 11:19 | Progress Note ---
Progress Note Date of Service Oct 11, 2016. Progress Note Patient afebrile vital signs are stable Says she is voiding without problem She told me today that her last urine seemed clear to her Urine culture was negative Assessment hematuria Probably secondary to clot lysis from her prior bladder biopsy No intervention needed She should follow-up after discharge
[2016-10-11] MEDS ORDERED: DICYCLOMINE HCL 20 MG TAB PO ONE (11:30)
--- NOTE | 2016-10-11 11:50 | Gastrointestinal Consultation ---
Gastrointestinal Consultation Date of Consultation: Oct 11, 2016 Attending Physician: Marina Almonte Consulting Physician: Anabel Fitzgerald Reason for Consultation: Diarrhea History of Present Illness Patient is a 81 year old female w PMHx of diabetes, DVT, HTN, cardiac disease w hx of pacemaker placement, Factor V leiden deficiency, CVA, seizure disorder who presented to ED w N/V, diarrhea since last Monday. She denies any sick contact, new meds or changes in diet/travel. Her n/v has resolved now but diarrhea persist. She noticed the diarrhea to present mostly at night and sometimes may wake up in middle of sleep w diarrhea. She denies any dark tarry stools or rectal bleeding though her stool occult blood was positive. Stool cx and Cdiff negative. She denies any abd pain or cramping. She also has hematuria s/p bladder bx via cystoscopy on 09/27 - bx results showed chronic cystitis. She is currently on Ceftriaxone for possible UTI. Of noted, she had hx of partial colectomy >20 yrs ago for ? diverticular hemorrhage s/p fall. She had EGD and colonoscopy evals by [facility] 3-6 months ago - unremarkable finding per pt except for colon polyp. I do not have records to review at this time. Past Medical/Surgical History Medical Problems: (1) Bladder mass Status: Acute (2) Current use of senior living anticoagulation Status: Acute (3) Dehydration Status: Acute (4) Hematuria Status: Acute (5) Hematuria Status: Acute (6) History of DVT of lower extremity Status: Acute (7) Nausea, vomiting, and diarrhea Status: Acute (8) UTI (urinary tract infection) Status: Acute (9) Weak Status: Acute Past Medical History: See above Past Surgical History: Appendectomy Cholecystectomy Hysterectomy Partial Colectomy Family History Cancer Diabetes mellitus Heart disease Hypertension Kidney disease Kidney stones Social History Smoking Status: Never Smoker Alcohol Use: none Drug Use: none Marital Status: Housing Status: lives with family Occupation Status: unemployed Allergies Coded Allergies: Butorphanol (Verified Allergy, Intermediate, HIVES, 10/08/16) Chlorzoxazone (Verified Allergy, Intermediate, HIVES, 10/08/16) Erythromycin (Verified Allergy, Intermediate, HIVES, 10/08/16) Naloxone (Verified Allergy, Intermediate, HIVES, 10/08/16) Nitrofurantoin (Verified Allergy, Intermediate, HIVES, 10/08/16) Pentazocine (Verified Allergy, Intermediate, HIVES, 10/08/16) Diazepam (Verified Adverse Reaction, Unknown, FELLS LIKE CRAWLING UP A WALL, 10/08/16) Current Medications Home Meds and Scripts Medications Dose Route/Sig Max Daily Dose Days Date Category Dose Instructions Zofran Odt (Ondansetron HCl) 4 Mg Tab 4 Mg SL Q6H 10/08/16 Rx Niacin 500 Mg Tab 500 Mg PO QAM 10/08/16 Reported Hydroxyurea 500 Mg Cap 500 Mg PO UD 10/08/16 Reported TAKE 500 MG TID ON MONDAY, MONDAY, AND MONDAY. Caltrate 600+D (Calcium Carbonate-Cholecalcife) 1 Tab Tab 1 Tab PO DAILY 10/08/16 Reported Requip (Ropinirole HCl) 1 Mg Tab 3 Mg PO HS 10/06/16 Reported Methenamine Hippurate 1 Gm Tab 1 Gm PO BID PRN 10/06/16 Reported Vitamin C (Ascorbic Acid) 1,000 Mg Tab 1,000 Mg PO BID 10/06/16 Reported Oxygen Gas 2 Liters NA HS 09/14/16 Reported Aspirin Ec (Aspirin) 81 Mg Tab 81 Mg PO QAM 08/27/16 Reported Emmett-3 (Fish Oil) 1 Ea Cap 1 Cap PO BID 08/27/16 Reported Citalopram Hydrobromide 10 Mg Tab 10 Mg PO QAM 08/27/16 Reported Preservision Areds 2 (Multiple Vitamins W/ Minerals) 1 Cap Cap 1 Cap PO BID 08/27/16 Reported Levothyroxine Sodium 25 Mcg Tab 25 Mcg PO QAM 08/27/16 Reported Carbatrol Er (Carbamazepine) 200 Mg Capcr 300 Mg PO BID 08/27/16 Reported Neurontin (Gabapentin) 300 Mg Cap 1,200 Mg PO HS 08/27/16 Reported Ropinirole HCl 1 Mg Tab 1 Mg PO QAM 08/27/16 Reported Zaroxolyn (Metolazone) 2.5 Mg Tab 2.5 Mg PO PRN 08/27/16 Reported Lasix (Furosemide) 40 Mg Tab 40 Mg PO QAM 08/27/16 Reported Tricor (Fenofibrate) 145 Mg Tab 145 Mg PO QAM 08/27/16 Reported Crestor (Rosuvastatin Calcium) 5 Mg Tab 5 Mg PO QAM 08/27/16 Reported Folvite (Folic Acid) 1 Mg Tab 400 Mcg PO QAM 08/27/16 Reported Hydrea Cap (Hydroxyurea) 500 Mg Cap 500 Mg PO UD 08/27/16 Reported TAKE 500 MG BID ON MONDAY, MONDAY, MONDAY, AND MONDAY. Protonix (Pantoprazole Sodium) 40 Mg Tab 40 Mg PO QAM 08/27/16 Reported Lopressor (Metoprolol Tartrate) 25 Mg Tab 25 Mg PO BID 08/27/16 Reported Januvia (Sitagliptin Phosphate) 100 Mg Tab 100 Mg PO QAM 08/27/16 Reported Review of Systems Constitutional: No chills, No fever Respiratory: No cough, No shortness of breath Cardiac: No chest pain, No edema Abdomen: + diarrhea, No nausea, No pain, No vomiting Female : + hematuria (history ) Physical Exam Date Time Temp Pulse Resp B/P Pulse Ox O2 Delivery O2 Flow Rate FiO2 10/11/16 08:40 Room Air 10/11/16 07:52 36.6 65 18 109/73 97 Room Air 10/11/16 00:15 36.7 72 18 114/65 98 Room Air 10/11/16 00:00 Room Air 10/10/16 21:09 92 148/84 10/10/16 16:00 Room Air 10/10/16 14:58 36.8 67 18 121/74 98 Room Air General Appearance: WD/WN, no apparent distress Eyes: normal inspection, PERRL, EOMI Neck: supple, no JVD, trachea midline Respiratory/Chest: normal breath sounds, no respiratory distress, no accessory muscle use Cardiovascular: regular rate, rhythm, no gallop, no murmur Abdomen: normal bowel sounds, non tender, soft Extremities: normal inspection, no pedal edema, no calf tenderness Neurologic/Psych: alert, normal mood/affect, oriented x 3 Skin: normal color, no jaundice, no rash Laboratory Results Last 24 Hours Test 10/10/16 12:10 10/10/16 14:05 10/10/16 16:23 10/10/16 20:25 Stool Occult Blood POSITIVE Urine Color VENU Urine Appearance CLOUDY Urine pH 6.5 Urine Specific [place] 1.025 Urine Protein Urine Glucose (UA) NEG Urine Ketones Urine Occult Blood Urine Nitrite Urine Bilirubin NEG Urine Urobilinogen NEG Urine Leukocyte Esterase Urine RBC 10-30 /hpf Urine WBC 0 /hpf Urine Epithelial Cells 0-5 /lpf Urine Bacteria NEG Bedside Glucose 122 mg/dl 133 mg/dl Test 10/11/16 07:30 10/11/16 07:43 10/11/16 11:23 White Blood Count 6.15 K/uL Red Blood Count 2.94 M/uL Hemoglobin 11.2 g/dL Hematocrit 32.5 % Mean Corpuscular Volume 110.5 fL Mean Corpuscular Hemoglobin 38.1 pg Mean Corpuscular Hemoglobin Concent 34.5 g/dl Platelet Count 404 K/uL Mean Platelet Volume 10.0 fL Neutrophils (%) (Auto) 68.2 % Lymphocytes (%) (Auto) 22.3 % Monocytes (%) (Auto) 6.3 % Eosinophils (%) (Auto) 2.3 % Basophils (%) (Auto) 0.2 % Neutrophils # (Auto) 4.20 K/uL Lymphocytes # (Auto) 1.37 K/uL Monocytes # (Auto) 0.39 K/uL Eosinophils # (Auto) 0.14 K/uL Basophils # (Auto) 0.01 K/uL RDW Standard Deviation 61.0 fL RDW Coefficient of Variation 15.4 % Immature Granulocyte % (Auto) 0.7 % Immature Granulocyte # (Auto) 0.04 K/uL Macrocytosis PRESENT Ovalocytes 1+ Sodium Level 140 mmol/L Potassium Level 4.3 mmol/L Chloride Level 113 mmol/L Carbon Dioxide Level 15 mmol/L Anion Gap 12.0 mmol/L Blood Urea Nitrogen 11 mg/dl Creatinine 0.72 mg/dl Est Creatinine Clear Calc Drug Dose 67.3 ml/min Estimated GFR () 92.3 Estimated GFR (Non- 79.7 BUN/Creatinine Ratio 15.0 Random Glucose 127 mg/dl Calcium Level 8.5 mg/dl Bedside Glucose 137 mg/dl 126 mg/dl Impression Patient is a 81 year old female initially presented w n/v, diarrhea since last weekend. N/V resolved. Diarrhea persist, no adam GI bleeding per pt though gastric occult blood positive. Cdiff and stool cx negative. She's been on Lovenox for hx of DVT and PE, Factor V Leiden deficiency. Hx of also hematuria, bladder bx chronic cystitis. Wonder if she has microscopic colitis causing her diarrhea. Plan - Will obtain EGD and Colonoscopy records from [facility] (done 3-6 months ago). - Ok to advance diet as tolerated for now - Trial Dicyclomine 10mg BID. Attg addendum: I interviewed and examined pt, reviewed chart and labs. Pt with diarrhea - ? infectious diarrhea. Trial of dicylomine, obtain prior records.
[2016-10-11] MEDS: CEFTRIAXONE SOD INJ 1000 MG in DEXTROSE 5% 50ML IV SCH (13:37)
[2016-10-11 15:33] VITALS: BP 110/66; PULSE 61; TEMP 36.5; O2SAT 96
[2016-10-11] MEDS ORDERED: NURSING VERBAL MED ORDER ONE (17:45)
[2016-10-11] MEDS: DICYCLOMINE HCL 20 MG TAB PO SCH (20:55)
[2016-10-11 20:57] VITALS: BP 116/69; PULSE 66
[2016-10-11] MEDS: GABAPENTIN 300 MG CAP PO SCH (21:01)
[2016-10-12] VITALS: BP 134/65; PULSE 64; TEMP 36.7; O2SAT 96
[2016-10-12] MEDS: ONDANSETRON INJ 2 MG/ML 2 ML VIAL IV. SCH ×4 (05:41→23:40)
[2016-10-12] MEDS: LEVOTHYROXINE 25 MCG TAB PO SCH (05:41)
[2016-10-12 07:24] VITALS: BP 156/70; PULSE 58; TEMP 36.7; O2SAT 100
[2016-10-12] MEDS: DICYCLOMINE HCL 20 MG TAB PO SCH ×2 (08:36→21:26)
[2016-10-12] MEDS: CITALOPRAM 20 MG TAB PO SCH (08:37)
[2016-10-12] MEDS: FoLIC ACID TAB 400 MCG TAB PO SCH (08:38)
[2016-10-12] MEDS: ROSUVASTATIN CALCIUM 10 MG TAB PO SCH (08:38)
[2016-10-12] MEDS: ASPIRIN 81 MG ECTAB PO SCH (08:38)
--- NOTE | 2016-10-12 08:38 | Progress Note ---
Subjective Date of Service: Oct 12, 2016. Subjective Pt evaluation today including: conversation w/ patient, physical exam, lab review, review of studies, review of inpatient medication list Reports still having large, loose BM during the night about 5-6 times last night. During the day, 2-3 times only. Problem List Medical Problems: (1) Bladder mass Status: Acute (2) Current use of salvage determiner anticoagulation Status: Acute (3) Dehydration Status: Acute (4) Hematuria Status: Acute (5) Hematuria Status: Acute (6) History of DVT of lower extremity Status: Acute (7) Nausea, vomiting, and diarrhea Status: Acute (8) UTI (urinary tract infection) Status: Acute (9) Weak Status: Acute Review of Systems All Other Systems: Reviewed and Negative Medications Acetaminophen (Tylenol Tab) 650 mg Q4H PRN PO Last administered on 10/10/16 15:51; Admin Dose 650 MG; Start 10/08/16 at 11:15; Stop 11/07/16 at 11:14 Al Hydrox/Mg Hydrox/Simethicone (Maalox Max Susp) 15 ml Q4H PRN PO; Start 10/08 at 11:15; Stop 11/07/16 at 11:14 Aspirin (Ecotrin Tab) 81 mg QAM PO Last administered on 10/12/16 08:38; Admin Dose 81 MG; Start 10/09/16 at 09:00; Stop 11/08/16 at 08:59 Ceftriaxone Sodium/Dextrose (Rocephin Inj/ Dextrose Add-[place] 50ML) 50 ml @ 100 mls/hr Q24H IV Last administered on 10/12/16 14:12; Admin Dose 100 MLS/HR; Start 10/09/16 at 15:00; Stop 10/12/16 at 17:00 Citalopram Hydrobromide (celeXA TAB) 10 mg QAM PO Last administered on 08:37; Admin Dose 10 MG; Start 10/09/16 at 09:00; Stop 11/08/16 at 08:59 Dextrose (Dextrose 50% 50ML Syringe) 25-50ML OF 50% DW IV FOR... UD PRN IV; Start 10/08/16 at 11:30; Stop 11/07/16 at 11:29 Dicyclomine HCl (Bentyl Tab) 10 mg BID PO Last administered on 10/12/16 08:36; Admin Dose 10 MG; Start 10/11/16 at 21:00; Stop 11/10/16 at 20:59 Diphenhydramine HCl (Benadryl Inj) 25 mg Q6H PRN IV; Start 10/09/16 at 16:15; Stop 11/08/16 at 16:14 Fenofibrate (Tricor Tab) 145 mg QAM PO Last administered on 10/12/16 08:39; Admin Dose 145 MG; Start 10/09/16 at 09:00; Stop 11/08/16 at 08:59 Folic Acid (Folvite Tab) 400 mcg DAILY PO Last administered on 10/12/16 08:38; Admin Dose 400 MCG; Start 10/09/16 at 09:00; Stop 11/08/16 at 08:59 Gabapentin (Neurontin Cap) 1,200 mg HS PO Last administered on 10/11/16 21:01; Admin Dose 1,200 MG; Start 10/08/16 at 21:00; Stop 11/07/16 at 20:59 Glucagon (Glucagon Inj) 1 mg UD PRN SQ; Start 10/08/16 at 11:30; Stop 11/07/16 at 11:29 Glucose (Glucose 40% Gel) 15-30 GRAMS 15 GRAMS... UD PRN PO; Start 10/08/16 at 11:30; Stop 11/07/16 at 11:29 Glucose (Glucose Chew Tab) 4-8 Tablets 4 Tabl... UD PRN PO; Start 10/08/16 at 11:30; Stop 11/07/16 at 11:29 Heparin Sodium (Porcine) 5000 unit 5,000 unit Q12 SQ Last administered on 08:47; Admin Dose 5,000 UNIT; Start 10/09/16 at 21:00; Stop 11/08/16 at 20: 59 Hydrocortisone (Proctozone Hc 2.5% Crm) 1 appln Q4H PRN EXT; Start 10/10/16 at 09:00; Stop 11/09/16 at 08:59 Hydroxyurea (Hydrea Cap) 500 mg MoThSa@0900,1400,2100 PO Last administered on 21:16; Admin Dose 500 MG; Start 10/08/16 at 14:00; Stop 11/07/16 at 13: 59 Hydroxyurea (Hydrea Cap) 500 mg SuTuWeFr@0900,2100 PO Last administered on 08:47; Admin Dose 500 MG; Start 10/08/16 at 21:00; Stop 11/07/16 at 20:59; Status Future hold Insulin Aspart (novoLOG ASPART) SLIDING SCALE G... ACHS SC Last administered on 10/12/16 12:16; Admin Dose 1 UNITS; Start 10/08/16 at 16:30; Stop 11/07/16 at 16:29 Ketorolac Tromethamine (Toradol Inj) 15 mg Q6H PRN IV Last administered on 10/09 21:35; Admin Dose 15 MG; Start 10/09/16 at 11:15; Stop 10/14/16 at 11:14 Levothyroxine Sodium (Synthroid Tab) 25 mcg DAILYBB PO Last administered on 10/12 05:41; Admin Dose 25 MCG; Start 10/09/16 at 06:30; Stop 11/08/16 at 06:29 Methenamine Hippurate (Urex Tab) 1 gm BID PRN PO; Start 10/08/16 at 12:15; Stop 10/18/16 at 12:14 Metoprolol Tartrate (Lopressor Tab) 25 mg BID PO Last administered on 10/12/16 08:39; Admin Dose 25 MG; Start 10/08/16 at 21:00; Stop 11/07/16 at 20:59 Miscellaneous (Iv Fluids Completed) 1 ea PRN PRN N/A; Start 10/08/16 at 15:30; Stop 10/08/17 at 15:29 Nystatin (Mycostatin Powder) 1 appln PRN PRN EXT; Start 10/08/16 at 14:45; Stop 11/07/16 at 14:44 Nystatin (Mycostatin Susp) 10 ml TID PO Last administered on 10/12/16 14:11; Admin Dose 10 ML; Start 10/10/16 at 14:00; Stop 10/17/16 at 14:00 Ondansetron HCl 4 mg 4 mg Q6H IV. Last administered on 10/12/16 12:09; Admin Dose 4 MG; Start 10/09/16 at 11:15; Stop 11/08/16 at 11:14 Pantoprazole Sodium (Protonix Tab) 40 mg QAM PO Last administered on 10/12/16 08:40; Admin Dose 40 MG; Start 10/09/16 at 09:00; Stop 11/08/16 at 08:59 Promethazine HCl/ Sodium Chloride (Phenergan Inj/ Nss 50ml) 50.5 ml @ 204 mls/ hr Q6H PRN IV; Start 10/09/16 at 09:30; Stop 11/08/16 at 09:29 Ropinirole HCl (Requip Tab) 1 mg QAM PO Last administered on 10/12/16 08:39; Admin Dose 1 MG; Start 10/09/16 at 09:00; Stop 11/08/16 at 08:59 Ropinirole HCl (Requip Tab) 3 mg HS PO Last administered on 10/11/16 21:02; Admin Dose 3 MG; Start 10/08/16 at 21:00; Stop 11/07/16 at 20:59 Rosuvastatin Calcium (Crestor Tab) 5 mg QAM PO Last administered on 10/12/16 08 :38; Admin Dose 5 MG; Start 10/09/16 at 09:00; Stop 11/08/16 at 08:59 Tramadol HCl (Ultram Tab) 50 mg Q4H PRN PO; Start 10/09/16 at 11:15; Stop 11/08 at 11:14 Objective Vital Signs Date Time Temp Pulse Resp B/P Pulse Ox O2 Delivery O2 Flow Rate FiO2 10/12/16 07:24 36.7 58 18 156/70 100 Room Air 10/12/16 00:00 Room Air 10/12/16 00:00 36.7 64 20 134/65 96 Room Air 10/11/16 20:57 66 116/69 10/11/16 19:50 Room Air 10/11/16 15:38 Room Air 10/11/16 15:33 36.5 61 18 110/66 96 Room Air 10/11/16 08:40 Room Air Physical Exam Comments: nad, aox3 eomi, perrl, anicteric s1 s2 rrr, no murmurs appreciated ctab no w/r/r abd soft ,nt/nd +BS no LE edema cn 2-12 grossly intact Laboratory Results Last 24 Hours Test 10/11/16 11:23 10/11/16 16:35 10/11/16 20:30 10/12/16 07:22 Bedside Glucose 126 mg/dl 127 mg/dl 93 mg/dl 130 mg/dl Assessment and Plan 1. Hematuria - s/p bladder biopsy, no e/o malignancy from prior work-up - although not unusual post-biopsy, patient has had recurrent hematuria, even prior to biopsy and is the reason why she had the biopsy as I was told - she is on chronic anticoagulation and requires indefinite anticoagulation due to factor 5 leiden deficiency - currently being held due to hematuria but does have an IVC filter - I have also ordered SCDs to be placed for dvt ppx and advised her to move around as much as possible - repeat UA still with 3+ blood, risk/benefits will be discussed with patient tomorrow 2. Diarrhea - negative C diff, negative culture - awaiting O&P - nausea resolved, will continue to hydrate - switched IVF to d5 1/2 nss - cipro and flagyl now off - repeat FOBT negative with stable hb - GI consulted, recs noted - last colonoscopy within the last 3-4 months along with EGD from [facility] 3. Possible UTI - no e/o infection on UA - received cipro/flagyl for 2 days and currently on rocephin for 2 days as well - she should be adequately covered for cystitis/ lower uti and will stop today - no e/o pyelonephritis on imaging 4. 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 CHF - unknown EF - compensated and appears euvolemic
[2016-10-12] MEDS: FENOFIBRATE 145 MG TAB PO SCH (08:39)
[2016-10-12] MEDS: ROPINIROLE HCL 1 MG TAB PO SCH ×2 (08:39→21:32)
[2016-10-12] MEDS: METOPROLOL TARTRATE 25 MG TAB PO SCH ×2 (08:39→21:30)
[2016-10-12] MEDS: PANTOprazole SOD 40 MG TAB PO SCH (08:40)
[2016-10-12] MEDS: NYSTATIN SUSP 500,000 U/5 ML UDC PO SCH ×3 (08:40→21:30)
[2016-10-12] MEDS: INSULIN ASPART 100 UNITS/ML 3 ML PEN SC SCH ×4 (08:46→21:30)
[2016-10-12] MEDS: HYDROXYUREA 500 MG CAP PO SCH ×2 (08:47→21:28)
[2016-10-12] MEDS: HEPARIN SOD 5000 UNIT/0.5 ML CARP SQ SCH (08:47)
--- NOTE | 2016-10-12 10:48 | Gastroenterology Progress Note ---
Progress Note Date of Service: Oct 12, 2016 Subjective Pt evaluation today including: conversation w/ patient, physical exam, chart review, lab review, review of studies, review of inpatient medication list Ms. Kelly is a 81 yr old female admitted for nausea/vomiting/diarrhea. Pt states mostly a night time problem. Had EGD/Colonoscopy from [facility] a few months ago; records have been requested. Dicyclomine added yesterday. Though diarrhea continues, frequency has decreased each day. One BM thus far today. Nausea/vomiting resolved on arrival. Review of Systems Constitutional: No fever ENT: No hearing loss Respiratory: No cough Cardiac: No chest pain Abdomen: + diarrhea, No GI bleeding, No nausea, No pain, No vomiting Female : No dysuria Neuro: No memory loss Psych: No depression symptoms Heme: No abnormal bleeding/bruising Endo: + problem reported (though at times has fatigue from the diarrhea; pt tells me her strength, ability to walk is back to baseline today. ) Skin: No color change, No jaundice, No rash Medications Current Inpatient Medications Medications (Trade) Dose Ordered Sig/Tone Route Start Time Stop Time Status Last Admin Dose Admin Acetaminophen (Tylenol Tab) 650 mg Q4H PRN PO 10/08/16 11:15 11/07/16 11:14 10/10/16 15:51 650 MG Al Hydrox/Mg Hydrox/Simethicone (Maalox Max Susp) 15 ml Q4H PRN PO 10/08/16 11:15 11/07/16 11:14 Insulin Aspart (novoLOG ASPART) SLIDING SCALE G... ACHS SC 10/08/16 16:30 11/07/16 16:29 10/12/16 08:46 4 UNITS Glucose (Glucose 40% Gel) 15-30 GRAMS 15 GRAMS... UD PRN PO 10/08/16 11:30 11/07/16 11:29 Glucose (Glucose Chew Tab) 4-8 Tablets 4 Tabl... UD PRN PO 10/08/16 11:30 11/07/16 11:29 Dextrose (Dextrose 50% 50ML Syringe) 25-50ML OF 50% DW IV FOR... UD PRN IV 10/08/16 11:30 11/07/16 11:29 Glucagon (Glucagon Inj) 1 mg UD PRN SQ 10/08/16 11:30 4/10/17 11:29 Ioversol (Optiray 320) 111 ml UD PRN IV 10/08/16 12:00 10/12/16 11:59 Aspirin (Ecotrin Tab) 81 mg QAM PO 10/09/16 09:00 11/08/16 08:59 10/12/16 08:38 81 MG Fenofibrate (Tricor Tab) 145 mg QAM PO 10/09/16 09:00 11/08/16 08:59 10/12/16 08:39 145 MG Folic Acid (Folvite Tab) 400 mcg DAILY PO 10/09/16 09:00 11/08/16 08:59 10/12/16 08:38 400 MCG Gabapentin (Neurontin Cap) 1,200 mg HS PO 10/08/16 21:00 11/07/16 20:59 10/11/16 21:01 1,200 MG Hydroxyurea (Hydrea Cap) 500 mg SuTuWeFr@0900,2100 PO 10/08/16 21:00 11/07/16 20:59 Future hold 10/12/16 08:47 500 MG Levothyroxine Sodium (Synthroid Tab) 25 mcg DAILYBB PO 10/09/16 06:30 11/08/16 06:29 10/12/16 05:41 25 MCG Methenamine Hippurate (Urex Tab) 1 gm BID PRN PO 10/08/16 12:15 10/18/16 12:14 Metoprolol Tartrate (Lopressor Tab) 25 mg BID PO 10/08/16 21:00 11/07/16 20:59 10/12/16 08:39 25 MG Pantoprazole Sodium (Protonix Tab) 40 mg QAM PO 10/09/16 09:00 11/08/16 08:59 10/12/16 08:40 40 MG Ropinirole HCl (Requip Tab) 3 mg HS PO 10/08/16 21:00 11/07/16 20:59 10/11/16 21:02 3 MG Ropinirole HCl (Requip Tab) 1 mg QAM PO 10/09/16 09:00 11/08/16 08:59 10/12/16 08:39 1 MG Rosuvastatin Calcium (Crestor Tab) 5 mg QAM PO 10/09/16 09:00 11/08/16 08:59 10/12/16 08:38 5 MG Citalopram Hydrobromide (celeXA TAB) 10 mg QAM PO 10/09/16 09:00 11/08/16 08:59 10/12/16 08:37 10 MG Hydroxyurea (Hydrea Cap) 500 mg MoThSa@0900,1400,2100 PO 10/08/16 14:00 11/07/16 13:59 10/10/16 21:16 500 MG Nystatin (Mycostatin Powder) 1 appln PRN PRN EXT 10/08/16 14:45 11/07/16 14:44 Miscellaneous (Iv Fluids Completed) 1 ea PRN PRN N/A 10/08/16 15:30 10/08/17 15:29 Ondansetron HCl 4 mg 4 mg Q6H IV. 10/09/16 11:15 11/08/16 11:14 10/12/16 05:41 4 MG Promethazine HCl/ Sodium Chloride (Phenergan Inj/ Nss 50ml) 50.5 ml @ 204 mls/hr Q6H PRN IV 10/09/16 09:30 11/08/16 09:29 Tramadol HCl (Ultram Tab) 50 mg Q4H PRN PO 10/09/16 11:15 11/08/16 11:14 Ketorolac Tromethamine (Toradol Inj) 15 mg Q6H PRN IV 10/09/16 11:15 10/14/16 11:14 10/09/16 21:35 15 MG Heparin Sodium (Porcine) 5000 unit 5,000 unit Q12 SQ 10/09/16 21:00 11/08/16 20:59 10/12/16 08:47 5,000 UNIT Ceftriaxone Sodium/Dextrose (Rocephin Inj/ Dextrose Add-[place] 50ML) 50 ml @ 100 mls/hr Q24H IV 10/09/16 15:00 10/19/16 14:59 10/11/16 13:37 100 MLS/HR Diphenhydramine HCl (Benadryl Inj) 25 mg Q6H PRN IV 10/09/16 16:15 11/08/16 16:14 Hydrocortisone (Proctozone Hc 2.5% Crm) 1 appln Q4H PRN EXT 10/10/16 09:00 11/09/16 08:59 Nystatin (Mycostatin Susp) 10 ml TID PO 10/10/16 14:00 10/17/16 14:00 10/12/16 08:40 10 ML Dicyclomine HCl (Bentyl Tab) 10 mg BID PO 10/11/16 21:00 11/10/16 20:59 10/12/16 08:36 10 MG Objective Vital Signs Date Time Temp Pulse Resp B/P Pulse Ox O2 Delivery O2 Flow Rate FiO2 10/12/16 07:24 36.7 58 18 156/70 100 Room Air 10/12/16 00:00 Room Air 10/12/16 00:00 36.7 64 20 134/65 96 Room Air 10/11/16 20:57 66 116/69 10/11/16 19:50 Room Air 10/11/16 15:38 Room Air 10/11/16 15:33 36.5 61 18 110/66 96 Room Air Physical Exam General Appearance: no apparent distress ENT: pharynx normal Neck: no adenopathy, no JVD Respiratory/Chest: lungs clear Cardiovascular: regular rate, rhythm, no JVD, no murmur Abdomen: non tender, soft Extremities: non-tender Neurologic/Psych: alert, normal mood/affect, oriented x 3 Skin: no jaundice Laboratory Results Last 24 Hours Test 10/11/16 11:23 10/11/16 16:35 10/11/16 20:30 10/12/16 07:22 Bedside Glucose 126 mg/dl 127 mg/dl 93 mg/dl 130 mg/dl Test 10/12/16 09:05 Stool Occult Blood NEGATIVE Assessment and Plan Ms. Kelly is a 81 yr old female with non infectious chronic diarrhea with recent (possibly normal) colonoscopy (review of records pending). Considered is microscopic colitis and other "non sinister" causes of diarrhea. Plan: 1. Continue dicyclomine. 2. Continue to monitoring stool outputs. 3. No further testing/procedures planned at this time. Attg addendum: I interviewed and examined pt, reviewed chart and labs. Pt appears improved with Bentyl; if persistent symptoms, then consider repeat cscopy - this can be done as inpt or outpt.
[2016-10-12 11:24] LABS: URINE APPEARANCE CLOUDY (CLEAR); URINE BILIRUBIN NEG (NEG); URINE COLOR ORANGE; URINE NITRITE NEG (NEG); URINE SPECIFIC GRAVITY 1.009 (1.000-1.030); UROBILINOGEN NEG (NEG)
[2016-10-12 11:29] LABS: MANUAL MICROSCOPIC REQUIRED? NO; REVIEW REQ? YES
[2016-10-12] MEDS: CEFTRIAXONE SOD INJ 1000 MG in DEXTROSE 5% 50ML IV SCH (14:12)
[2016-10-12 14:44] VITALS: BP 111/67; PULSE 63; TEMP 36.4; O2SAT 98
[2016-10-12] MEDS: ENOXAPARIN 60 MG/0.6 ML SYR SQ SCH (21:20)
[2016-10-12] MEDS: GABAPENTIN 300 MG CAP PO SCH (21:31)
[2016-10-13] VITALS: BP 131/73; PULSE 62; TEMP 36.8; O2SAT 98
[2016-10-13] MEDS: ONDANSETRON INJ 2 MG/ML 2 ML VIAL IV. SCH ×2 (05:38→12:46)
[2016-10-13] MEDS: LEVOTHYROXINE 25 MCG TAB PO SCH (05:38)
[2016-10-13 07:19] LABS: HEMATOCRIT 33.2 % (37-47)
[2016-10-13 07:24] VITALS: BP 138/73; PULSE 85; TEMP 36.4; O2SAT 100
[2016-10-13] MEDS: ENOXAPARIN 60 MG/0.6 ML SYR SQ SCH (08:02)
[2016-10-13] MEDS: DICYCLOMINE HCL 20 MG TAB PO SCH (08:02)
[2016-10-13] MEDS: CITALOPRAM 20 MG TAB PO SCH (08:03)
[2016-10-13] MEDS: FoLIC ACID TAB 400 MCG TAB PO SCH (08:03)
[2016-10-13] MEDS: ASPIRIN 81 MG ECTAB PO SCH (08:03)
[2016-10-13] MEDS: ROSUVASTATIN CALCIUM 10 MG TAB PO SCH (08:04)
[2016-10-13] MEDS: FENOFIBRATE 145 MG TAB PO SCH (08:04)
[2016-10-13] MEDS: PANTOprazole SOD 40 MG TAB PO SCH (08:04)
[2016-10-13] MEDS: NYSTATIN SUSP 500,000 U/5 ML UDC PO SCH ×3 (08:05→21:32)
[2016-10-13] MEDS: ROPINIROLE HCL 1 MG TAB PO SCH ×2 (08:06→21:33)
[2016-10-13] MEDS: METOPROLOL TARTRATE 25 MG TAB PO SCH ×2 (08:06→21:31)
[2016-10-13 08:15] LABS: BUN/CREATININE RATIO 21.6 (10-20); CALCIUM 8.8 mg/dl (8.5-10.1); CREATININE 0.74 mg/dl (0.60-1.20); POTASSIUM 4.4 mmol/L (3.5-5.1)
[2016-10-13] MEDS: HYDROXYUREA 500 MG CAP PO SCH ×3 (08:37→21:31)
[2016-10-13] MEDS: INSULIN ASPART 100 UNITS/ML 3 ML PEN SC SCH ×5 (08:37→23:54)
[2016-10-13 08:42] LABS: BASO % 0.3 %; BASO ABS # 0.02 K/uL (0-0.2); COMPLETE YES; EOS % 3.4 %; IG% 1.2 %; LYMPH % 23.3 %; LYMPH ABS # 1.51 K/uL (1.2-3.4); MEAN CORPUSCULAR HEMOGLOBIN 38.6 pg (25-34); MEAN PLATELET VOLUME 10.9 fL (7.4-10.4); MONO % 6.8 %; PLATELET COUNT 454 K/uL (130-400); RED BLOOD COUNT 2.95 M/uL (4.2-5.4); WHITE BLOOD COUNT 6.49 K/uL (4.8-10.8)
--- NOTE | 2016-10-13 09:08 | Progress Note ---
Subjective Date of Service: Oct 13, 2016. Subjective Pt evaluation today including: conversation w/ patient, physical exam, lab review, review of studies, review of inpatient medication list Still have diarrhea, loose stools about 3-4 times during the day and more frequent during the night 5-6 times. She is otherwise tolerating food without n/v. Afebrile. She was restarted on lovenox and has not noted any urine color changes. Problem List Medical Problems: (1) Bladder mass Status: Acute (2) Current use of fdc anticoagulation Status: Acute (3) Dehydration Status: Acute (4) Hematuria Status: Acute (5) Hematuria Status: Acute (6) History of DVT of lower extremity Status: Acute (7) Nausea, vomiting, and diarrhea Status: Acute (8) UTI (urinary tract infection) Status: Acute (9) Weak Status: Acute Review of Systems All Other Systems: Reviewed and Negative Medications Acetaminophen (Tylenol Tab) 650 mg Q4H PRN PO Last administered on 10/13/16 12:45; Admin Dose 650 MG; Start 10/08/16 at 11:15; Stop 11/07/16 at 11:14 Al Hydrox/Mg Hydrox/Simethicone (Maalox Max Susp) 15 ml Q4H PRN PO; Start 10/08 at 11:15; Stop 11/07/16 at 11:14 Aspirin (Ecotrin Tab) 81 mg QAM PO Last administered on 10/13/16 08:03; Admin Dose 81 MG; Start 10/09/16 at 09:00; Stop 11/08/16 at 08:59 Citalopram Hydrobromide (celeXA TAB) 10 mg QAM PO Last administered on 08:03; Admin Dose 10 MG; Start 10/09/16 at 09:00; Stop 11/08/16 at 08:59 Dextrose (Dextrose 50% 50ML Syringe) 25-50ML OF 50% DW IV FOR... UD PRN IV; Start 10/08/16 at 11:30; Stop 11/07/16 at 11:29 Dicyclomine HCl (Bentyl Tab) 10 mg BID PO Last administered on 10/13/16 08:02; Admin Dose 10 MG; Start 10/11/16 at 21:00; Stop 11/10/16 at 20:59 Diphenhydramine HCl (Benadryl Inj) 25 mg Q6H PRN IV; Start 10/09/16 at 16:15; Stop 11/08/16 at 16:14 Enoxaparin Sodium (Lovenox Inj) 60 mg Q12H SQ Last administered on 10/13/16 08: 02; Admin Dose 60 MG; Start 10/12/16 at 19:00; Stop 11/11/16 at 18:59 Fenofibrate (Tricor Tab) 145 mg QAM PO Last administered on 10/13/16 08:04; Admin Dose 145 MG; Start 10/09/16 at 09:00; Stop 11/08/16 at 08:59 Folic Acid (Folvite Tab) 400 mcg DAILY PO Last administered on 10/13/16 08:03; Admin Dose 400 MCG; Start 10/09/16 at 09:00; Stop 11/08/16 at 08:59 Gabapentin (Neurontin Cap) 1,200 mg HS PO Last administered on 10/12/16 21:31; Admin Dose 1,200 MG; Start 10/08/16 at 21:00; Stop 11/07/16 at 20:59 Glucagon (Glucagon Inj) 1 mg UD PRN SQ; Start 10/08/16 at 11:30; Stop 11/07/16 at 11:29 Glucose (Glucose 40% Gel) 15-30 GRAMS 15 GRAMS... UD PRN PO; Start 10/08/16 at 11:30; Stop 11/07/16 at 11:29 Glucose (Glucose Chew Tab) 4-8 Tablets 4 Tabl... UD PRN PO; Start 10/08/16 at 11:30; Stop 11/07/16 at 11:29 Hydrocortisone (Proctozone Hc 2.5% Crm) 1 appln Q4H PRN EXT; Start 10/10/16 at 09:00; Stop 11/09/16 at 08:59 Hydroxyurea (Hydrea Cap) 500 mg MoThSa@0900,1400,2100 PO Last administered on 08:37; Admin Dose 500 MG; Start 10/08/16 at 14:00; Stop 11/07/16 at 13: 59 Hydroxyurea (Hydrea Cap) 500 mg SuTuWeFr@0900,2100 PO Last administered on 21:28; Admin Dose 500 MG; Start 10/08/16 at 21:00; Stop 11/07/16 at 20:59; Status Future hold Insulin Aspart (novoLOG ASPART) SLIDING SCALE G... ACHS SC Last administered on 10/13/16 08:37; Admin Dose 3 UNITS; Start 10/08/16 at 16:30; Stop 11/07/16 at 16:29 Ketorolac Tromethamine (Toradol Inj) 15 mg Q6H PRN IV Last administered on 10/09 21:35; Admin Dose 15 MG; Start 10/09/16 at 11:15; Stop 10/14/16 at 11:14 Levothyroxine Sodium (Synthroid Tab) 25 mcg DAILYBB PO Last administered on 10/13 05:38; Admin Dose 25 MCG; Start 10/09/16 at 06:30; Stop 11/08/16 at 06:29 Methenamine Hippurate (Urex Tab) 1 gm BID PRN PO; Start 10/08/16 at 12:15; Stop 10/18/16 at 12:14 Metoprolol Tartrate (Lopressor Tab) 25 mg BID PO Last administered on 10/13/16 08:06; Admin Dose 25 MG; Start 10/08/16 at 21:00; Stop 11/07/16 at 20:59 Miscellaneous (Iv Fluids Completed) 1 ea PRN PRN N/A; Start 10/08/16 at 15:30; Stop 10/08/17 at 15:29 Nystatin (Mycostatin Powder) 1 appln PRN PRN EXT; Start 10/08/16 at 14:45; Stop 11/07/16 at 14:44 Nystatin (Mycostatin Susp) 10 ml TID PO Last administered on 10/13/16 08:05; Admin Dose 10 ML; Start 10/10/16 at 14:00; Stop 10/17/16 at 14:00 Ondansetron HCl 4 mg 4 mg Q6H IV. Last administered on 10/13/16 12:46; Admin Dose 4 MG; Start 10/09/16 at 11:15; Stop 11/08/16 at 11:14 Pantoprazole Sodium (Protonix Tab) 40 mg QAM PO Last administered on 10/13/16 08:04; Admin Dose 40 MG; Start 10/09/16 at 09:00; Stop 11/08/16 at 08:59 Promethazine HCl/ Sodium Chloride (Phenergan Inj/ Nss 50ml) 50.5 ml @ 204 mls/ hr Q6H PRN IV; Start 10/09/16 at 09:30; Stop 11/08/16 at 09:29 Ropinirole HCl (Requip Tab) 1 mg QAM PO Last administered on 10/13/16 08:06; Admin Dose 1 MG; Start 10/09/16 at 09:00; Stop 11/08/16 at 08:59 Ropinirole HCl (Requip Tab) 3 mg HS PO Last administered on 10/12/16 21:32; Admin Dose 3 MG; Start 10/08/16 at 21:00; Stop 11/07/16 at 20:59 Rosuvastatin Calcium (Crestor Tab) 5 mg QAM PO Last administered on 10/13/16 08 :04; Admin Dose 5 MG; Start 10/09/16 at 09:00; Stop 11/08/16 at 08:59 Tramadol HCl (Ultram Tab) 50 mg Q4H PRN PO; Start 10/09/16 at 11:15; Stop 11/08 at 11:14 Objective Vital Signs Date Time Temp Pulse Resp B/P Pulse Ox O2 Delivery O2 Flow Rate FiO2 10/13/16 07:24 36.4 85 18 138/73 100 Room Air 10/13/16 00:00 Room Air 10/13/16 00:00 36.8 62 20 131/73 98 Room Air 10/12/16 16:00 Room Air 10/12/16 14:44 36.4 63 18 111/67 98 Room Air Physical Exam Comments: nad, aox3 eomi, perrl, anicteric s1 s2 rrr, no murmurs appreciated ctab no w/r/r abd soft nt/nd +BS no cva tend no LE edema Laboratory Results Last 24 Hours Test 10/12/16 10:40 10/12/16 11:02 10/12/16 16:28 10/12/16 20:34 Urine Color ORANGE Urine Appearance CLOUDY Urine pH 5.0 Urine Specific Sebastian 1.009 Urine Protein 1+ Urine Glucose (UA) NEG Urine Ketones NEG Urine Occult Blood 3+ Urine Nitrite NEG Urine Bilirubin NEG Urine Urobilinogen NEG Urine Leukocyte Esterase TRACE Urine WBC (Auto) 1-5 /hpf Urine RBC (Auto) >30 /hpf Urine Hyaline Casts (Auto) 1-5 /lpf Urine Epithelial Cells (Auto) 10-20 /lpf Urine Bacteria (Auto) NEG Urine Yeast (Auto) Bedside Glucose 105 mg/dl 104 mg/dl 129 mg/dl Test 10/13/16 06:45 10/13/16 07:36 White Blood Count 6.49 K/uL Red Blood Count 2.95 M/uL Hemoglobin 11.3 g/dL Hematocrit 33.2 % Mean Corpuscular Hemoglobin 38.6 pg Platelet Count 454 K/uL Mean Platelet Volume 10.9 fL Neutrophils (%) (Auto) 65.0 % Lymphocytes (%) (Auto) 23.3 % Monocytes (%) (Auto) 6.8 % Eosinophils (%) (Auto) 3.4 % Basophils (%) (Auto) 0.3 % Neutrophils # (Auto) 4.22 K/uL Lymphocytes # (Auto) 1.51 K/uL Monocytes # (Auto) 0.44 K/uL Eosinophils # (Auto) 0.22 K/uL Basophils # (Auto) 0.02 K/uL RDW Standard Deviation 59.2 fL RDW Coefficient of Variation 14.9 % Immature Granulocyte % (Auto) 1.2 % Immature Granulocyte # (Auto) 0.08 K/uL Sodium Level 139 mmol/L Potassium Level 4.4 mmol/L Chloride Level 113 mmol/L Carbon Dioxide Level 18 mmol/L Anion Gap 8.0 mmol/L Blood Urea Nitrogen 16 mg/dl Creatinine 0.74 mg/dl Est Creatinine Clear Calc Drug Dose 65.6 ml/min Estimated GFR () 89.3 Estimated GFR (Non- 77.1 BUN/Creatinine Ratio 21.6 Random Glucose 114 mg/dl Calcium Level 8.8 mg/dl Bedside Glucose 136 mg/dl Assessment and Plan 1. Hematuria - s/p bladder biopsy, no e/o malignancy from prior work-up - although not unusual post-biopsy, patient has had recurrent hematuria, even prior to biopsy and is the reason why she had the biopsy as I was told - she is on chronic anticoagulation and requires indefinite anticoagulation due to factor 5 leiden deficiency - she was restarted on lovenox last night and will continue to monitor for hematuria or melena for the rest of the day - monitor h/h 2. Diarrhea - negative C diff, negative culture - awaiting O&P - cipro and flagyl now off - repeat FOBT negative with stable hb - GI consulted, recs noted - last colonoscopy within the last 3-4 months along with EGD from [facility] - cont dicyclomine and titrate up per GI recs - no further procedures planned from GI standpoint 3. Possible UTI - no e/o infection on UA - received cipro/flagyl for 2 days and currently on rocephin for 2 days as well - no e/o pyelonephritis on imaging 4. 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 CHF - unknown EF - compensated and appears euvolemic
[2016-10-13 09:33] LABS: MEAN CELL VOLUME 109.9 fL (80-100)
--- NOTE | 2016-10-13 11:18 | Gastroenterology Progress Note ---
Progress Note Date of Service: Oct 13, 2016 Subjective Pt evaluation today including: conversation w/ patient, physical exam Patient was seen and examined this morning. Bentyl helping with abdominal symptoms. Still having loose stools, 3-4 daily and then more frequent BM at night. Denies any black/bloody stools. No fever, chills, chest pain, SOB, nausea , vomiting. Stool O&P still pending. Review of Systems Constitutional: No chills, No fever Respiratory: No shortness of breath Cardiac: No chest pain Abdomen: + diarrhea, No GI bleeding, No constipation, No nausea, No pain, No vomiting Medications Current Inpatient Medications Medications (Trade) Dose Ordered Sig/Tone Route Start Time Stop Time Status Last Admin Dose Admin Acetaminophen (Tylenol Tab) 650 mg Q4H PRN PO 10/08/16 11:15 11/07/16 11:14 10/10/16 15:51 650 MG Al Hydrox/Mg Hydrox/Simethicone (Maalox Max Susp) 15 ml Q4H PRN PO 10/08/16 11:15 11/07/16 11:14 Insulin Aspart (novoLOG ASPART) SLIDING SCALE G... ACHS SC 10/08/16 16:30 11/07/16 16:29 10/13/16 08:37 3 UNITS Glucose (Glucose 40% Gel) 15-30 GRAMS 15 GRAMS... UD PRN PO 10/08/16 11:30 11/07/16 11:29 Glucose (Glucose Chew Tab) 4-8 Tablets 4 Tabl... UD PRN PO 10/08/16 11:30 11/07/16 11:29 Dextrose (Dextrose 50% 50ML Syringe) 25-50ML OF 50% DW IV FOR... UD PRN IV 10/08/16 11:30 11/07/16 11:29 Glucagon (Glucagon Inj) 1 mg UD PRN SQ 10/08/16 11:30 11/07/16 11:29 Aspirin (Ecotrin Tab) 81 mg QAM PO 10/09/16 09:00 11/08/16 08:59 10/13/16 08:03 81 MG Fenofibrate (Tricor Tab) 145 mg QAM PO 10/09/16 09:00 11/08/16 08:59 10/13/16 08:04 145 MG Folic Acid (Folvite Tab) 400 mcg DAILY PO 10/09/16 09:00 11/08/16 08:59 10/13/16 08:03 400 MCG Gabapentin (Neurontin Cap) 1,200 mg HS PO 10/08/16 21:00 11/07/16 20:59 10/12/16 21:31 1,200 MG Hydroxyurea (Hydrea Cap) 500 mg SuTuWeFr@0900,2100 PO 10/08/16 21:00 11/07/16 20:59 Future hold 10/12/16 21:28 500 MG Levothyroxine Sodium (Synthroid Tab) 25 mcg DAILYBB PO 10/09/16 06:30 11/08/16 06:29 10/13/16 05:38 25 MCG Methenamine Hippurate (Urex Tab) 1 gm BID PRN PO 10/08/16 12:15 10/18/16 12:14 Metoprolol Tartrate (Lopressor Tab) 25 mg BID PO 10/08/16 21:00 11/07/16 20:59 10/13/16 08:06 25 MG Pantoprazole Sodium (Protonix Tab) 40 mg QAM PO 10/09/16 09:00 11/08/16 08:59 10/13/16 08:04 40 MG Ropinirole HCl (Requip Tab) 3 mg HS PO 10/08/16 21:00 11/07/16 20:59 10/12/16 21:32 3 MG Ropinirole HCl (Requip Tab) 1 mg QAM PO 10/09/16 09:00 11/08/16 08:59 10/13/16 08:06 1 MG Rosuvastatin Calcium (Crestor Tab) 5 mg QAM PO 10/09/16 09:00 11/08/16 08:59 10/13/16 08:04 5 MG Citalopram Hydrobromide (celeXA TAB) 10 mg QAM PO 10/09/16 09:00 11/08/16 08:59 10/13/16 08:03 10 MG Hydroxyurea (Hydrea Cap) 500 mg MoThSa@0900,1400,2100 PO 10/08/16 14:00 11/07/16 13:59 10/13/16 08:37 500 MG Nystatin (Mycostatin Powder) 1 appln PRN PRN EXT 10/08/16 14:45 11/07/16 14:44 Miscellaneous (Iv Fluids Completed) 1 ea PRN PRN N/A 10/08/16 15:30 10/08/17 15:29 Ondansetron HCl 4 mg 4 mg Q6H IV. 10/09/16 11:15 11/08/16 11:14 10/13/16 05:38 4 MG Promethazine HCl/ Sodium Chloride (Phenergan Inj/ Nss 50ml) 50.5 ml @ 204 mls/hr Q6H PRN IV 10/09/16 09:30 11/08/16 09:29 Tramadol HCl (Ultram Tab) 50 mg Q4H PRN PO 10/09/16 11:15 11/08/16 11:14 Ketorolac Tromethamine (Toradol Inj) 15 mg Q6H PRN IV 10/09/16 11:15 10/14/16 11:14 10/09/16 21:35 15 MG Diphenhydramine HCl (Benadryl Inj) 25 mg Q6H PRN IV 10/09/16 16:15 11/08/16 16:14 Hydrocortisone (Proctozone Hc 2.5% Crm) 1 appln Q4H PRN EXT 10/10/16 09:00 11/09/16 08:59 Nystatin (Mycostatin Susp) 10 ml TID PO 10/10/16 14:00 10/17/16 14:00 10/13/16 08:05 10 ML Dicyclomine HCl (Bentyl Tab) 10 mg BID PO 10/11/16 21:00 11/10/16 20:59 10/13/16 08:02 10 MG Enoxaparin Sodium (Lovenox Inj) 60 mg Q12H SQ 10/12/16 19:00 11/11/16 18:59 10/13/16 08:02 60 MG Objective Vital Signs Date Time Temp Pulse Resp B/P Pulse Ox O2 Delivery O2 Flow Rate FiO2 10/13/16 08:00 Room Air 10/13/16 07:24 36.4 85 18 138/73 100 Room Air 10/13/16 00:00 Room Air 10/13/16 00:00 36.8 62 20 131/73 98 Room Air 10/12/16 16:00 Room Air 10/12/16 14:44 36.4 63 18 111/67 98 Room Air Physical Exam General Appearance: no apparent distress (patient is OOB in chair on phone prior to examination) Eyes: PERRL ENT: hearing grossly normal Neck: supple Respiratory/Chest: lungs clear, no respiratory distress, no accessory muscle use Cardiovascular: regular rate, rhythm, no edema, no gallop, no murmur Abdomen: normal bowel sounds, non tender, soft, no organomegaly Neurologic/Psych: alert, normal mood/affect, oriented x 3 Skin: normal color, warm/dry Laboratory Results Last 24 Hours Test 10/12/16 16:28 10/12/16 20:34 10/13/16 06:45 10/13/16 07:36 Bedside Glucose 104 mg/dl 129 mg/dl 136 mg/dl White Blood Count 6.49 K/uL Red Blood Count 2.95 M/uL Hemoglobin 11.3 g/dL Hematocrit 33.2 % Mean Corpuscular Volume 109.9 fL Mean Corpuscular Hemoglobin 38.6 pg Mean Corpuscular Hemoglobin Concent 34.0 g/dl Platelet Count 454 K/uL Mean Platelet Volume 10.9 fL Neutrophils (%) (Auto) 65.0 % Lymphocytes (%) (Auto) 23.3 % Monocytes (%) (Auto) 6.8 % Eosinophils (%) (Auto) 3.4 % Basophils (%) (Auto) 0.3 % Neutrophils # (Auto) 4.22 K/uL Lymphocytes # (Auto) 1.51 K/uL Monocytes # (Auto) 0.44 K/uL Eosinophils # (Auto) 0.22 K/uL Basophils # (Auto) 0.02 K/uL RDW Standard Deviation 59.2 fL RDW Coefficient of Variation 14.9 % Immature Granulocyte % (Auto) 1.2 % Immature Granulocyte # (Auto) 0.08 K/uL Sodium Level 139 mmol/L Potassium Level 4.4 mmol/L Chloride Level 113 mmol/L Carbon Dioxide Level 18 mmol/L Anion Gap 8.0 mmol/L Blood Urea Nitrogen 16 mg/dl Creatinine 0.74 mg/dl Est Creatinine Clear Calc Drug Dose 65.6 ml/min Estimated GFR () 89.3 Estimated GFR (Non- 77.1 BUN/Creatinine Ratio 21.6 Random Glucose 114 mg/dl Calcium Level 8.8 mg/dl Assessment and Plan Ms. [place] is a 81 yr old female with non infectious chronic diarrhea with recent (possibly normal) colonoscopy (review of records pending). Considered is microscopic colitis and other "non sinister" causes of diarrhea. Reports she is feeling well and thought she was going home today but they are reintroducing Lovenox and holding overnight. Stool for O&P pending Continue dicyclomine may increase to 10 mg TID as needed Continue to monitor stool outputs - watch for BRB or melena colonscopy Attg addendum: I interviewed and examined pt. She has persistent diarrhea which appears unchanged. Will plan cscopy tomorrow.
[2016-10-13] MEDS: ACETAMINOPHEN 325 MG TAB PO PRN (12:45)
[2016-10-13] MEDS ORDERED: NURSING VERBAL MED ORDER ONE (13:00)
[2016-10-13] MEDS ORDERED: POLYETHYLENE (MIRALAX) 17 GM PACK PO ONE ×2 (14:00→17:00)
[2016-10-13] MEDS ORDERED: DICYCLOMINE HCL 10 MG CAP PO SCH (14:00)
[2016-10-13 14:35] VITALS: BP 133/61; PULSE 88; TEMP 36.4; O2SAT 98
[2016-10-13] MEDS ORDERED: BISACODYL 5 MG TABEC PO ONE (17:00)
--- NOTE | 2016-10-13 17:23 | Progress Note ---
Subjective Date of Service: Oct 13, 2016. Subjective Pt evaluation today including: conversation w/ patient, chart review, lab review Voiding: no voiding problems 81 yo female with gross hematuria s/p TURBT. Pt denies gross hematuria today. "Maybe a few flecks here and there." Denies pain or other symptoms. She is scheduled for a colonoscopy tomorrow. Problem List Medical Problems: (1) Bladder mass Status: Acute (2) Current use of intermediate frame tender anticoagulation Status: Acute (3) Dehydration Status: Acute (4) Hematuria Status: Acute (5) Hematuria Status: Acute (6) History of DVT of lower extremity Status: Acute (7) Nausea, vomiting, and diarrhea Status: Acute (8) UTI (urinary tract infection) Status: Acute (9) Weak Status: Acute Review of Systems Constitutional: No chills, No fever Abdomen: + diarrhea, No nausea, No pain, No vomiting Female : No dysuria, No hematuria Heme: No abnormal bleeding/bruising Objective Vital Signs Date Time Temp Pulse Resp B/P Pulse Ox O2 Delivery O2 Flow Rate FiO2 10/13/16 14:35 36.4 88 20 133/61 98 Room Air 10/13/16 08:00 Room Air 10/13/16 07:24 36.4 85 18 138/73 100 Room Air 10/13/16 00:00 Room Air 10/13/16 00:00 36.8 62 20 131/73 98 Room Air Physical Exam General Appearance: no apparent distress Eyes: normal inspection ENT: hearing grossly normal Neck: no JVD Respiratory/Chest: no respiratory distress, no accessory muscle use Cardiovascular: no JVD Extremities: normal inspection Neurologic/Psychiatric: alert, normal mood/affect, oriented x 3 Skin: normal color Laboratory Results Last 24 Hours Test 10/12/16 20:34 10/13/16 06:45 10/13/16 07:36 10/13/16 11:14 Bedside Glucose 129 mg/dl 136 mg/dl 110 mg/dl White Blood Count 6.49 K/uL Red Blood Count 2.95 M/uL Hemoglobin 11.3 g/dL Hematocrit 33.2 % Mean Corpuscular Volume 109.9 fL Mean Corpuscular Hemoglobin 38.6 pg Mean Corpuscular Hemoglobin Concent 34.0 g/dl Platelet Count 454 K/uL Mean Platelet Volume 10.9 fL Neutrophils (%) (Auto) 65.0 % Lymphocytes (%) (Auto) 23.3 % Monocytes (%) (Auto) 6.8 % Eosinophils (%) (Auto) 3.4 % Basophils (%) (Auto) 0.3 % Neutrophils # (Auto) 4.22 K/uL Lymphocytes # (Auto) 1.51 K/uL Monocytes # (Auto) 0.44 K/uL Eosinophils # (Auto) 0.22 K/uL Basophils # (Auto) 0.02 K/uL RDW Standard Deviation 59.2 fL RDW Coefficient of Variation 14.9 % Immature Granulocyte % (Auto) 1.2 % Immature Granulocyte # (Auto) 0.08 K/uL Sodium Level 139 mmol/L Potassium Level 4.4 mmol/L Chloride Level 113 mmol/L Carbon Dioxide Level 18 mmol/L Anion Gap 8.0 mmol/L Blood Urea Nitrogen 16 mg/dl Creatinine 0.74 mg/dl Est Creatinine Clear Calc Drug Dose 65.6 ml/min Estimated GFR () 89.3 Estimated GFR (Non- 77.1 BUN/Creatinine Ratio 21.6 Random Glucose 114 mg/dl Calcium Level 8.8 mg/dl Test 10/13/16 16:24 Bedside Glucose 114 mg/dl Assessment and Plan A/P: Gross hematuria s/p TURBT AFVSS. UC&S noted to be negative. Gross hematuria not uncommon for several weeks after TURBT. Now improved. No further management at this time. Recall PRN issues. She will f/u with Dr. Padilla as an outpatient as scheduled.
[2016-10-13] MEDS: ONDANSETRON 4 MG TAB PO SCH ×2 (17:27→22:51)
[2016-10-13] MEDS: GABAPENTIN 300 MG CAP PO SCH (21:33)
[2016-10-13 22:40] VITALS: BP 125/71; PULSE 64; TEMP 36.5; O2SAT 100
[2016-10-13] MEDS ORDERED: NURSING DECISION MEDICATION ORDER SCH (23:30)
[2016-10-14] MEDS: ONDANSETRON 4 MG TAB PO SCH ×4 (05:16→22:45)
[2016-10-14] MEDS: LEVOTHYROXINE 25 MCG TAB PO SCH (05:20)
[2016-10-14] MEDS: INSULIN ASPART 100 UNITS/ML 3 ML PEN SC SCH ×4 (06:00→20:46)
[2016-10-14 06:01] LABS: HEMATOCRIT 34.6 % (37-47); MEAN CELL VOLUME 109.5 fL (80-100); MEAN CORPUSCULAR HEMOGLOBIN 38.6 pg (25-34); MEAN CORPUSCULAR HGB CONC 35.3 g/dl (32-36); MEAN PLATELET VOLUME 10.8 fL (7.4-10.4); PLATELET COUNT 471 K/uL (130-400); RED BLOOD COUNT 3.16 M/uL (4.2-5.4); WHITE BLOOD COUNT 7.37 K/uL (4.8-10.8)
[2016-10-14 07:52] VITALS: BP 120/82; PULSE 64; TEMP 36.6; O2SAT 97
[2016-10-14 07:58] VITALS: O2SAT 97
[2016-10-14] MEDS: NYSTATIN SUSP 500,000 U/5 ML UDC PO SCH ×3 (08:10→20:40)
[2016-10-14] MEDS: METOPROLOL TARTRATE 25 MG TAB PO SCH ×3 (08:11→20:41)
[2016-10-14 08:59] VITALS: BP 120/82; PULSE 64; TEMP 36.6; O2SAT 97
[2016-10-14] MEDS: HYDROXYUREA 500 MG CAP PO SCH ×2 (09:00→20:45)
--- NOTE | 2016-10-14 09:43 | Progress Note ---
Subjective Date of Service: Oct 14, 2016. Subjective Pt evaluation today including: conversation w/ patient, physical exam, review of studies, conversation w/ consultant intern, review of inpatient medication list Patient still reporting same amount of diarrhea at night, slightly less during the day. No changes in urine color/hematuria. No BRBPR. Will be going for colonoscopy today. AMbulating with a walker in the hallways with PT. No chest pain, some sob with ambulation. No other complaints. Problem List Medical Problems: (1) Bladder mass Status: Acute (2) Current use of fci anticoagulation Status: Acute (3) Dehydration Status: Acute (4) Hematuria Status: Acute (5) Hematuria Status: Acute (6) History of DVT of lower extremity Status: Acute (7) Nausea, vomiting, and diarrhea Status: Acute (8) UTI (urinary tract infection) Status: Acute (9) Weak Status: Acute Review of Systems All Other Systems: Reviewed and Negative Medications Acetaminophen (Tylenol Tab) 650 mg Q4H PRN PO Last administered on 10/13/16 12:45; Admin Dose 650 MG; Start 10/08/16 at 11:15; Stop 11/07/16 at 11:14 Al Hydrox/Mg Hydrox/Simethicone (Maalox Max Susp) 15 ml Q4H PRN PO; Start 10/08 at 11:15; Stop 11/07/16 at 11:14 Aspirin (Ecotrin Tab) 81 mg QAM PO Last administered on 10/13/16 08:03; Admin Dose 81 MG; Start 10/09/16 at 09:00; Stop 11/08/16 at 08:59 Citalopram Hydrobromide (celeXA TAB) 10 mg QAM PO Last administered on 08:03; Admin Dose 10 MG; Start 10/09/16 at 09:00; Stop 11/08/16 at 08:59 Dextrose (Dextrose 50% 50ML Syringe) 25-50ML OF 50% DW IV FOR... UD PRN IV; Start 10/08/16 at 11:30; Stop 11/07/16 at 11:29 Diphenhydramine HCl (Benadryl Inj) 25 mg Q6H PRN IV; Start 10/09/16 at 16:15; Stop 11/08/16 at 16:14 Enoxaparin Sodium (Lovenox Inj) 60 mg Q12H SQ Last administered on 10/13/16 08: 02; Admin Dose 60 MG; Start 10/12/16 at 19:00; Stop 11/11/16 at 18:59; Status Future Hold Fenofibrate (Tricor Tab) 145 mg QAM PO Last administered on 10/13/16 08:04; Admin Dose 145 MG; Start 10/09/16 at 09:00; Stop 11/08/16 at 08:59 Folic Acid (Folvite Tab) 400 mcg DAILY PO Last administered on 10/13/16 08:03; Admin Dose 400 MCG; Start 10/09/16 at 09:00; Stop 11/08/16 at 08:59 Gabapentin (Neurontin Cap) 1,200 mg HS PO Last administered on 10/13/16 21:33; Admin Dose 1,200 MG; Start 10/08/16 at 21:00; Stop 11/07/16 at 20:59 Glucagon (Glucagon Inj) 1 mg UD PRN SQ; Start 10/08/16 at 11:30; Stop 11/07/16 at 11:29 Glucose (Glucose 40% Gel) 15-30 GRAMS 15 GRAMS... UD PRN PO; Start 10/08/16 at 11:30; Stop 11/07/16 at 11:29 Glucose (Glucose Chew Tab) 4-8 Tablets 4 Tabl... UD PRN PO; Start 10/08/16 at 11:30; Stop 11/07/16 at 11:29 Hydrocortisone (Proctozone Hc 2.5% Crm) 1 appln Q4H PRN EXT; Start 10/10/16 at 09:00; Stop 11/09/16 at 08:59 Hydroxyurea (Hydrea Cap) 500 mg MoThSa@0900,1400,2100 PO Last administered on 21:31; Admin Dose 500 MG; Start 10/08/16 at 14:00; Stop 11/07/16 at 13: 59 Hydroxyurea (Hydrea Cap) 500 mg SuTuWeFr@0900,2100 PO Last administered on 21:28; Admin Dose 500 MG; Start 10/08/16 at 21:00; Stop 11/07/16 at 20:59; Status Future hold Insulin Aspart (novoLOG ASPART) SLIDING SCALE G... Q6 SC; Start 10/14/16 at 00:00; Stop 11/13/16 at 00:00 Levothyroxine Sodium (Synthroid Tab) 25 mcg DAILYBB PO Last administered on 10/13 05:38; Admin Dose 25 MCG; Start 10/09/16 at 06:30; Stop 11/08/16 at 06:29 Methenamine Hippurate (Urex Tab) 1 gm BID PRN PO; Start 10/08/16 at 12:15; Stop 10/18/16 at 12:14 Metoprolol Tartrate (Lopressor Tab) 25 mg BID PO Last administered on 10/14/16 08:36; Admin Dose 25 MG; Start 10/08/16 at 21:00; Stop 11/07/16 at 20:59 Miscellaneous 1 ea 1 ea PRN PRN N/A; Start 10/08/16 at 15:30; Stop 10/08/17 at 15:29 Nystatin (Mycostatin Powder) 1 appln PRN PRN EXT; Start 10/08/16 at 14:45; Stop 11/07/16 at 14:44 Nystatin (Mycostatin Susp) 10 ml TID PO Last administered on 10/13/16 21:32; Admin Dose 10 ML; Start 10/10/16 at 14:00; Stop 10/17/16 at 14:00 Ondansetron HCl (Zofran Tab) 4 mg Q6H PO Last administered on 10/14/16 05:16; Admin Dose 4 MG; Start 10/13/16 at 17:00; Stop 11/12/16 at 16:59 Pantoprazole Sodium (Protonix Tab) 40 mg QAM PO Last administered on 10/13/16 08:04; Admin Dose 40 MG; Start 10/09/16 at 09:00; Stop 11/08/16 at 08:59 Promethazine HCl/ Sodium Chloride (Phenergan Inj/ Nss 50ml) 50.5 ml @ 204 mls/ hr Q6H PRN IV; Start 10/09/16 at 09:30; Stop 11/08/16 at 09:29 Ropinirole HCl (Requip Tab) 1 mg QAM PO Last administered on 10/13/16 08:06; Admin Dose 1 MG; Start 10/09/16 at 09:00; Stop 11/08/16 at 08:59 Ropinirole HCl (Requip Tab) 3 mg HS PO Last administered on 10/13/16 21:33; Admin Dose 3 MG; Start 10/08/16 at 21:00; Stop 11/07/16 at 20:59 Rosuvastatin Calcium (Crestor Tab) 5 mg QAM PO Last administered on 10/13/16 08 :04; Admin Dose 5 MG; Start 10/09/16 at 09:00; Stop 11/08/16 at 08:59 Tramadol HCl (Ultram Tab) 50 mg Q4H PRN PO; Start 10/09/16 at 11:15; Stop 11/08 at 11:14 Objective Vital Signs Date Time Temp Pulse Resp B/P Pulse Ox O2 Delivery O2 Flow Rate FiO2 10/14/16 08:59 36.6 64 20 120/82 97 Room Air 10/14/16 07:58 97 Room Air 10/14/16 07:52 36.6 64 20 120/82 97 Room Air 10/13/16 23:50 Room Air 10/13/16 22:40 36.5 64 20 125/71 100 Room Air 10/13/16 16:00 Room Air 10/13/16 14:35 36.4 88 20 133/61 98 Room Air Physical Exam Comments: nad, aox3 eomi, perrl, anicteric s1 s2 rrr no murmurs appreciated ctab no w/r/r abd soft nt/nd +BS no LE edema cn 2-12 grossly intact without facial drooping Laboratory Results Last 24 Hours Test 10/13/16 11:14 10/13/16 16:24 10/13/16 20:05 10/13/16 23:50 Bedside Glucose 110 mg/dl 114 mg/dl 100 mg/dl 125 mg/dl Test 10/14/16 05:25 10/14/16 05:51 10/14/16 08:30 White Blood Count 7.37 K/uL Red Blood Count 3.16 M/uL Hemoglobin 12.2 g/dL Hematocrit 34.6 % Mean Corpuscular Volume 109.5 fL Mean Corpuscular Hemoglobin 38.6 pg Mean Corpuscular Hemoglobin Concent 35.3 g/dl RDW Standard Deviation 58.6 fL RDW Coefficient of Variation 14.7 % Platelet Count 471 K/uL Mean Platelet Volume 10.8 fL Bedside Glucose 122 mg/dl Assessment and Plan 1. Hematuria - s/p bladder biopsy, no e/o malignancy from prior work-up - although not unusual post-biopsy, patient has had recurrent hematuria, even prior to biopsy and is the reason why she had the biopsy as I was told - she is on chronic anticoagulation and requires indefinite anticoagulation due to factor 5 leiden deficiency - tolerating lovenox well - stable h/h, no hematuria 2. Diarrhea - negative C diff, negative culture - awaiting O&P - cipro and flagyl now off - repeat FOBT negative with stable hb - GI consulted, recs noted will f/u results of colonoscopy and further recommendations - last colonoscopy within the last 3-4 months along with EGD from [facility] -for colonoscopy today 3. Possible UTI - no e/o infection on UA - received cipro/flagyl for 2 days and currently on rocephin for 2 days as well - no e/o pyelonephritis on imaging 4. 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 CHF - unknown EF - compensated and appears euvolemic
[2016-10-14 10:21] LABS: URINE APPEARANCE CLOUDY (CLEAR); URINE BILIRUBIN NEG (NEG); URINE NITRITE NEG (NEG); URINE SPECIFIC GRAVITY 1.004 (1.000-1.030); UROBILINOGEN NEG (NEG)
[2016-10-14 10:22] LABS: MANUAL MICROSCOPIC REQUIRED? NO; REVIEW REQ? YES; URINE COLOR AMBER
[2016-10-14] MEDS ORDERED: PROPOFOL IV EMULSION 10 MG/ML 20 ML VIAL IV ONE ×4 (14:38→15:17)
[2016-10-14] MEDS ORDERED: LIDOCAINE HCL 2% 2 ML VIAL (20MG/ML) ONE (14:38)
--- NOTE | 2016-10-14 15:54 | Anesthesiology Progress Note ---
Anesthesia Post Op Note Date & Time Oct 14, 2016 at 15:53 Vital Signs Pain Intensity: 0.0 Vital Signs Past 12 Hours Date Time Temp Pulse Resp B/P Pulse Ox O2 Delivery O2 Flow Rate FiO2 10/14/16 15:51 60 20 185/72 99 Room Air 10/14/16 15:34 36.9 63 20 128/58 99 Room Air 10/14/16 14:28 36.9 63 20 134/60 99 Room Air 10/14/16 08:59 36.6 64 20 120/82 97 Room Air 10/14/16 08:00 Room Air 10/14/16 07:58 97 Room Air 10/14/16 07:52 36.6 64 20 120/82 97 Room Air Notes Mental Status: alert / awake / arousable, participated in evaluation Pt Amnestic to Procedure: Yes Nausea / Vomiting: adequately controlled Pain: adequately controlled Airway Patency, RR, SpO2: stable & adequate BP & HR: stable & adequate Hydration State: stable & adequate Anesthetic Complications: no major complications apparent
--- NOTE | 2016-10-14 16:39 | GI REPORT ---
Procedure Date: 10/14/2016 2:36 PM Procedure: Colonoscopy Indications: Chronic diarrhea Medicines: See the Anesthesia note for documentation of the administered medications Complications: No immediate complications. Estimated Blood Loss: Estimated blood loss: none. Procedure: Pre-Anesthesia Assessment: - ASA Grade Assessment: IV - A patient with severe systemic disease that is a constant threat to life. After I obtained informed consent, the scope was passed under direct vision. Throughout the procedure, the patient's blood pressure, pulse, and oxygen saturations were monitored continuously. The scope was introduced through the anus and advanced to the terminal ileum. The colonoscopy was performed without difficulty. The patient tolerated the procedure well. The quality of the bowel preparation was good. Findings: The perianal and digital rectal examinations were normal. Numerous diverticula seen in the sigmoid colon. There was an side to side ileocolonic anastamosis in the left colon. This colon was markedly narrowed and ulcerated - it could not be intubated with a pediatric colonoscope, and looked to be too small to intubate with a standard upper endoscope. The stricture was biopsied. The ultra thin upper endoscope was passed beyond this area of stricture. The small intestine was normal proximal to the stricture. Impression: Ulcerated, strictured ileocolonic anastamosis. Diverticulosis. Recommendation: - Discharge patient to floor. Continue Bentyl 10 BID. Begin Miralax 1/2 capful/day Low residue diet. OK for d/c - we will arrange for outpt f/u and treatment of her stricture. Anabel Laird M.D. Anabel Laird MD 10/14/2016 4:40:08 PM This report has been signed electronically. Note Initiated On: 10/14/2016 2:36 PM I attest to the content of the Intraoperative Record and orders documented therein, exceptions below
[2016-10-14 16:41] VITALS: BP 160/76; PULSE 64; TEMP 36.4; O2SAT 98
[2016-10-14] MEDS: CITALOPRAM 20 MG TAB PO SCH (16:42)
[2016-10-14] MEDS: ASPIRIN 81 MG ECTAB PO SCH (16:43)
[2016-10-14] MEDS: FoLIC ACID TAB 400 MCG TAB PO SCH (16:43)
[2016-10-14] MEDS: PANTOprazole SOD 40 MG TAB PO SCH (16:45)
[2016-10-14] MEDS: ROSUVASTATIN CALCIUM 10 MG TAB PO SCH (16:45)
[2016-10-14] MEDS: ROPINIROLE HCL 1 MG TAB PO SCH ×2 (16:45→20:40)
[2016-10-14] MEDS: FENOFIBRATE 145 MG TAB PO SCH (16:47)
[2016-10-14] MEDS ORDERED: NURSING DECISION MEDICATION ORDER SCH (19:30)
[2016-10-14] MEDS: GABAPENTIN 300 MG CAP PO SCH (20:40)
[2016-10-14 20:48] VITALS: BP 127/61; PULSE 64
[2016-10-14] MEDS: ACETAMINOPHEN 325 MG TAB PO PRN (22:45)
[2016-10-15 00:32] VITALS: BP 115/70; PULSE 63; TEMP 36.6; O2SAT 97
[2016-10-15] MEDS: LEVOTHYROXINE 25 MCG TAB PO SCH (06:35)
[2016-10-15] MEDS: ONDANSETRON 4 MG TAB PO SCH ×3 (06:36→17:26)
[2016-10-15 07:16] VITALS: BP 92/55; PULSE 66; TEMP 36.8; O2SAT 96
[2016-10-15 07:16] LABS: CREATININE 0.81 mg/dl (0.60-1.20)
[2016-10-15] MEDS: METOPROLOL TARTRATE 25 MG TAB PO SCH (09:11)
[2016-10-15] MEDS: NYSTATIN SUSP 500,000 U/5 ML UDC PO SCH ×2 (09:12→13:39)
[2016-10-15] MEDS: INSULIN ASPART 100 UNITS/ML 3 ML PEN SC SCH ×3 (09:15→17:31)
[2016-10-15] MEDS: HYDROXYUREA 500 MG CAP PO SCH ×2 (09:15→13:38)
[2016-10-15] MEDS ORDERED: DICY10CA55 PO ×2 (09:54→09:55)
[2016-10-15] MEDS ORDERED: LVNIS60 SQ (09:54)
[2016-10-15] MEDS ORDERED: ENOXAPARIN 1 MG/KG SQ SCH (10:00)
--- NOTE | 2016-10-15 10:04 | Progress Note ---
Subjective Date of Service: Oct 15, 2016. Subjective Pt evaluation today including: conversation w/ patient, physical exam, lab review, review of studies, review of inpatient medication list Patient hesitant to go home because she was told she should be supervised while ambulating with RW. She however does not feel unsteady on her feet with the walker. She also denies any hematuria. No BRBPR either but still having the diarrhea. 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 Status: Acute (3) Dehydration Status: Acute (4) Hematuria Status: Acute (5) Hematuria Status: Acute (6) History of DVT of lower extremity Status: Acute (7) Nausea, vomiting, and diarrhea Status: Acute (8) UTI (urinary tract infection) Status: Acute (9) Weak Status: Acute Review of Systems All Other Systems: Reviewed and Negative Medications Acetaminophen (Tylenol Tab) 650 mg Q4H PRN PO Last administered on 10/14/16 22:45; Admin Dose 650 MG; Start 10/08/16 at 11:15; Stop 11/07/16 at 11:14 Al Hydrox/Mg Hydrox/Simethicone (Maalox Max Susp) 15 ml Q4H PRN PO; Start 10/08 at 11:15; Stop 11/07/16 at 11:14 Aspirin (Ecotrin Tab) 81 mg QAM PO Last administered on 10/15/16 10:06; Admin Dose 81 MG; Start 10/09/16 at 09:00; Stop 11/08/16 at 08:59 Citalopram Hydrobromide (celeXA TAB) 10 mg QAM PO Last administered on 10:06; Admin Dose 10 MG; Start 10/09/16 at 09:00; Stop 11/08/16 at 08:59 Dextrose (Dextrose 50% 50ML Syringe) 25-50ML OF 50% DW IV FOR... UD PRN IV; Start 10/08/16 at 11:30; Stop 11/07/16 at 11:29 Diphenhydramine HCl (Benadryl Inj) 25 mg Q6H PRN IV; Start 10/09/16 at 16:15; Stop 11/08/16 at 16:14 Enoxaparin Sodium (Lovenox Inj) 60 mg Q12 SQ Last administered on 10/15/16 12: 11; Admin Dose 60 MG; Start 10/15/16 at 12:00; Stop 11/14/16 at 11:59 Fenofibrate (Tricor Tab) 145 mg QAM PO Last administered on 10/15/16 10:06; Admin Dose 145 MG; Start 10/09/16 at 09:00; Stop 11/08/16 at 08:59 Folic Acid (Folvite Tab) 400 mcg DAILY PO Last administered on 10/15/16 10:06; Admin Dose 400 MCG; Start 10/09/16 at 09:00; Stop 11/08/16 at 08:59 Gabapentin (Neurontin Cap) 1,200 mg HS PO Last administered on 10/14/16 20:40; Admin Dose 1,200 MG; Start 10/08/16 at 21:00; Stop 11/07/16 at 20:59 Glucagon (Glucagon Inj) 1 mg UD PRN SQ; Start 10/08/16 at 11:30; Stop 11/07/16 at 11:29 Glucose (Glucose 40% Gel) 15-30 GRAMS 15 GRAMS... UD PRN PO; Start 10/08/16 at 11:30; Stop 11/07/16 at 11:29 Glucose (Glucose Chew Tab) 4-8 Tablets 4 Tabl... UD PRN PO; Start 10/08/16 at 11:30; Stop 11/07/16 at 11:29 Hydrocortisone (Proctozone Hc 2.5% Crm) 1 appln Q4H PRN EXT; Start 10/10/16 at 09:00; Stop 11/09/16 at 08:59 Hydroxyurea (Hydrea Cap) 500 mg MoThSa@0900,1400,2100 PO Last administered on 13:38; Admin Dose 500 MG; Start 10/08/16 at 14:00; Stop 11/07/16 at 13: 59 Hydroxyurea (Hydrea Cap) 500 mg SuTuWeFr@0900,2100 PO Last administered on 20:45; Admin Dose 500 MG; Start 10/08/16 at 21:00; Stop 11/07/16 at 20:59; Status Future hold Insulin Aspart (novoLOG ASPART) SLIDING SCALE G... ACHS SC Last administered on 10/15/16 17:31; Admin Dose 1 UNITS; Start 10/14/16 at 21:00; Stop 11/13/16 at 00:00 Levothyroxine Sodium (Synthroid Tab) 25 mcg DAILYBB PO Last administered on 10/15 06:35; Admin Dose 25 MCG; Start 10/09/16 at 06:30; Stop 11/08/16 at 06:29 Methenamine Hippurate (Urex Tab) 1 gm BID PRN PO; Start 10/08/16 at 12:15; Stop 10/18/16 at 12:14 Metoprolol Tartrate (Lopressor Tab) 25 mg BID PO Last administered on 10/15/16 09:11; Admin Dose 25 MG; Start 10/08/16 at 21:00; Stop 11/07/16 at 20:59 Miscellaneous 1 ea 1 ea PRN PRN N/A; Start 10/08/16 at 15:30; Stop 10/08/17 at 15:29 Nystatin (Mycostatin Powder) 1 appln PRN PRN EXT; Start 10/08/16 at 14:45; Stop 11/07/16 at 14:44 Nystatin (Mycostatin Susp) 10 ml TID PO Last administered on 10/15/16 13:39; Admin Dose 10 ML; Start 10/10/16 at 14:00; Stop 10/17/16 at 14:00 Ondansetron HCl (Zofran Tab) 4 mg Q6H PO Last administered on 10/15/16 17:26; Admin Dose 4 MG; Start 10/13/16 at 17:00; Stop 11/12/16 at 16:59 Pantoprazole Sodium (Protonix Tab) 40 mg QAM PO Last administered on 10/15/16 10:06; Admin Dose 40 MG; Start 10/09/16 at 09:00; Stop 11/08/16 at 08:59 Promethazine HCl/ Sodium Chloride (Phenergan Inj/ Nss 50ml) 50.5 ml @ 204 mls/ hr Q6H PRN IV; Start 10/09/16 at 09:30; Stop 11/08/16 at 09:29 Ropinirole HCl (Requip Tab) 1 mg QAM PO Last administered on 10/15/16 10:06; Admin Dose 1 MG; Start 10/09/16 at 09:00; Stop 11/08/16 at 08:59 Ropinirole HCl (Requip Tab) 3 mg HS PO Last administered on 10/14/16 20:40; Admin Dose 3 MG; Start 10/08/16 at 21:00; Stop 11/07/16 at 20:59 Rosuvastatin Calcium (Crestor Tab) 5 mg QAM PO Last administered on 10/15/16 10 :06; Admin Dose 5 MG; Start 10/09/16 at 09:00; Stop 11/08/16 at 08:59 Tramadol HCl (Ultram Tab) 50 mg Q4H PRN PO; Start 10/09/16 at 11:15; Stop 11/08 at 11:14 Objective Vital Signs Date Time Temp Pulse Resp B/P Pulse Ox O2 Delivery O2 Flow Rate FiO2 10/15/16 07:30 Room Air 10/15/16 07:16 36.8 66 20 92/55 96 10/15/16 00:32 36.6 63 16 115/70 97 Room Air 10/15/16 00:30 Room Air 10/14/16 20:48 64 127/61 10/14/16 16:41 36.4 64 20 160/76 98 Room Air 10/14/16 16:15 Room Air 10/14/16 16:10 68 20 158/74 100 Room Air 10/14/16 16:01 62 20 161/74 100 Room Air 10/14/16 15:51 60 20 185/72 99 Room Air 10/14/16 15:41 68 20 185/78 99 Room Air 10/14/16 15:34 36.9 63 20 128/58 99 Room Air 10/14/16 14:28 36.9 63 20 134/60 99 Room Air Physical Exam Comments: nad, aox3 eomi, perrl, anicteric s1 s2 rrr, no murmurs appreciated ctab no w/r/r abd soft nt/nd +BS no LE edema cn 2-12 grossly intact without facial drooping Laboratory Results Last 24 Hours Test 10/14/16 11:22 10/14/16 16:17 10/14/16 17:08 10/14/16 20:19 Bedside Glucose 113 mg/dl 78 mg/dl 101 mg/dl 125 mg/dl Test 10/15/16 06:17 10/15/16 07:42 Hemoglobin 10.9 g/dL Hematocrit 30.0 % Creatinine 0.81 mg/dl Est Creatinine Clear Calc Drug Dose 59.1 ml/min Estimated GFR () 80.1 Estimated GFR (Non- 69.1 Bedside Glucose 128 mg/dl Assessment and Plan 1. Hematuria - s/p bladder biopsy, no e/o malignancy from prior work-up - although not unusual post-biopsy, patient has had recurrent hematuria, even prior to biopsy and is the reason why she had the biopsy as I was told - she is on chronic anticoagulation and requires indefinite anticoagulation due to factor 5 leiden deficiency - tolerating lovenox well - stable h/h, no hematuria 2. Diarrhea - negative C diff, negative culture - awaiting O&P - cipro and flagyl now off - repeat FOBT negative with stable hb - colonoscopy results noted, can be discharged from GI standpoint on low residue diet and dicyclomine bid 3. Possible UTI - no e/o infection on UA - received cipro/flagyl for 2 days and currently on rocephin for 2 days as well - no e/o pyelonephritis on imaging 4. 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 CHF - unknown EF - compensated and appears euvolemic 6. Ambulatory dysfunction - will have PT re-evaluate for safety with RW especially in setting of chronic anticoagulation
[2016-10-15] MEDS: CITALOPRAM 20 MG TAB PO SCH (10:06)
[2016-10-15] MEDS: FoLIC ACID TAB 400 MCG TAB PO SCH (10:06)
[2016-10-15] MEDS: ROSUVASTATIN CALCIUM 10 MG TAB PO SCH (10:06)
[2016-10-15] MEDS: PANTOprazole SOD 40 MG TAB PO SCH (10:06)
[2016-10-15] MEDS: FENOFIBRATE 145 MG TAB PO SCH (10:06)
[2016-10-15] MEDS: ROPINIROLE HCL 1 MG TAB PO SCH (10:06)
[2016-10-15] MEDS: ASPIRIN 81 MG ECTAB PO SCH (10:06)
[2016-10-15 11:20] LABS: HEMATOCRIT 32.2 % (37-47)
[2016-10-15] MEDS ORDERED: ENOXAPARIN 60 MG/0.6 ML SYR SQ SCH (12:00)
[2016-10-15 15:49] VITALS: BP 116/73; PULSE 66; TEMP 36.4; O2SAT 98
--- NOTE | 2016-10-15 15:56 | Discharge Summary ---
Discharge Summary Date of Service Oct 15, 2016. Discharge Summary Admission Date: Oct 08, 2016 at 11:20 Discharge Date: Oct 15, 2016 Discharge Disposition: Home Principal Diagnosis: diarrhea, hematuria Procedures: COLONOSCOPY Findings: The perianal and digital rectal examinations were normal. Numerous diverticula seen in the sigmoid colon. There was an side to side ileocolonic anastamosis in the left colon. This colon was markedly narrowed and ulcerated - it could not be intubated with a pediatric colonoscope, and looked to be too small to intubate with a standard upper endoscope. The stricture was biopsied. The ultra thin upper endoscope was passed beyond this area of stricture. The small intestine was normal proximal to the stricture. Impression: Ulcerated, strictured ileocolonic anastamosis. Diverticulosis. Recommendation: - Discharge patient to floor. Continue Bentyl 10 BID. Begin Miralax 1/2 capful/day Low residue diet. OK for d/c - we will arrange for outpt f/u and treatment of her stricture. Medication Reconciliation New Medications: Dicyclomine Hcl (Bentyl) 10 Mg Cap 1 CAP PO BID for 30 Days, #60 CAP 1 Refill Enoxaparin (Enoxaparin Sodium) 60 Mg/0.6 Ml Inj 60 MG SQ Q12H for 30 Days continue per home medication regimen Continued Medications: Ascorbic Acid (Vitamin C) 1,000 Mg Tab 1000 MG PO BID Aspirin (Aspirin Ec) 81 Mg Tab 81 MG PO QAM Calcium Carbonate-Cholecalcife (Caltrate 600+D) 1 Tab Tab 1 TAB PO DAILY Carbamazepine (Carbatrol Er) 200 Mg Capcr 300 MG PO BID, CAP Citalopram Hydrobromide (Citalopram Hydrobromide) 10 Mg Tab 10 MG PO QAM, TAB 3 Refills Fenofibrate (Tricor ) 145 Mg Tab 145 MG PO QAM, TAB Fish Oil ([place]-3) 1 Ea Cap 1 CAP PO BID, CAP Folic Acid (Folvite) 1 Mg Tab 400 MCG PO QAM, TAB Furosemide (Lasix) 40 Mg Tab 40 MG PO QAM, TAB Gabapentin (Neurontin) 300 Mg Cap 1200 MG PO HS, CAP Hydroxyurea (Hydrea Cap) 500 Mg Cap 500 MG PO UD, CAP TAKE 500 MG BID ON MONDAY, MONDAY, MONDAY, AND MONDAY. Hydroxyurea (Hydroxyurea) 500 Mg Cap 500 MG PO UD TAKE 500 MG TID ON MONDAY, MONDAY, AND MONDAY. Levothyroxine Sodium (Levothyroxine Sodium) 25 Mcg Tab 25 MCG PO QAM, TAB 3 Refills Methenamine Hippurate (Methenamine Hippurate) 1 Gm Tab 1 GM PO BID PRN for UTI Metoprolol Tartrate (Lopressor) (Lopressor) 25 Mg Tab 25 MG PO BID, TAB Multiple Vitamins W/ Minerals (Preservision Areds 2) 1 Cap Cap 1 CAP PO BID Niacin (Niacin) 500 Mg Tab 500 MG PO QAM, TAB Ondasetron Odt (Zofran Odt) 4 Mg Tab 4 MG SL Q6H for Nausea, #20 TAB Oxycodone/Acetaminophen 5MG/325MG (Percocet 5MG/325MG) Tab 1 TABLET PO Q4H PRN for Pain, TAB PAIN Oxygen (Oxygen) Gas 2 LITERS NA HS Pantoprazole (Protonix) 40 Mg Tab 40 MG PO QAM, #30 TAB Ropinirole (Requip) 1 Mg Tab 3 MG PO HS, TAB Ropinirole HCl (Ropinirole HCl) 1 Mg Tab 1 MG PO QAM Rosuvastatin Calcium (Crestor) 5 Mg Tab 5 MG PO QAM, TAB Sitagliptin Phosphate (Januvia) 100 Mg Tab 100 MG PO QAM, TAB Discontinued Medications: Metolazone (Zaroxolyn) 2.5 Mg Tab 2.5 MG PO PRN, TAB Hospital Course This pt is a 81-year-old female that presents emergency department with complaints of nausea, vomiting and diarrhea that started at approximately 4 AM this morning. Her symptoms started with diarrhea. Nausea and vomiting Shortly thereafter. She reports vomiting approximately 10 times. Denies any hematemesis or coffee-ground emesis. She denies any blood in her stool. She denies any fever or chills. She is complaining of a cramping like diffuse abdominal pain associated with bowel movements. She denies any sick contacts. She was in the emergency department 2 days ago with reports of hematuria. The patient underwent a cystoscopy for gross hematuria on 09/27. The results are consistent with chronic cystitis. No malignancy was noted. The patient also has a history of DVT and PE. She typically takes Lovenox 60 mg subcutaneous BID. This is currently being held for 48 hours due to the hematuria per Dr. Padilla's recommendations. She does also report dysuria and flank pain. The dysuria has been going on for quite some time. The back pain however started last night in addition to her other symptoms. On this hospitalization, stool cultures, C diff were all unremarkable. Stool O& P were pending on discharge. GI consultation was sought and she had a colonoscopy performed with the above findings. In terms of her hematuria, lovenox was held for a few days until urine cleared. Lovenox reinstituted without further hematuria. PT evaluation and reevaluation done prior to discharge. She was deemed independent safe to go home with RW. She was advised to seek medical attention if she has worsening hematuria, hematochezia, or fall/trauma to her head especially in view of her anticoagulation therapy. 1. Hematuria - s/p bladder biopsy, no e/o malignancy from prior work-up - although not unusual post-biopsy, patient has had recurrent hematuria, even prior to biopsy and is the reason why she had the biopsy as I was told - she is on chronic anticoagulation and requires indefinite anticoagulation due to factor 5 leiden deficiency - tolerating lovenox well - stable h/h, no hematuria 2. Diarrhea - negative C diff, negative culture - awaiting O&P - cipro and flagyl now off - repeat FOBT negative with stable hb - GI consulted, recs noted will f/u results of colonoscopy and further recommendations - last colonoscopy within the last 3-4 months along with EGD from [facility] -for colonoscopy today 3. Possible UTI - no e/o infection on UA - received cipro/flagyl for 2 days and currently on rocephin for 2 days as well - no e/o pyelonephritis on imaging 4. 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 CHF - unknown EF - compensated and appears euvolemic - resume lasix daily, stop metolazone for now 6. Ambulatory dysfunction - PT re-evaluation done, deemed independent and safe to be discharged home with RW. Total Time Spent: Greater than 30 minutes This includes examination of the patient, discharge planning, medication reconciliation, and communication with other providers. Discharge Instructions Please refer to the electronic Patient Visit Report (Discharge Instructions) for additional information. Follow-Up FOllow-up with PCP FOllow-up with GI Additional Copies To Yan Randolph
--- NOTE | 2016-10-15 15:56 | Discharge Instructions ---
Discharge Instructions Date of Service Oct 15, 2016. Admission Reason for Admission: Vomiting,Diarrhea,Nausea Discharge Discharge Diagnosis / Problem: diarrhea, hematuria Discharge Goals Goal(s): Decrease discomfort, Improve disease control Activity Recommendations Activity Limitations: resume your previous activity . Current Hospital Diet Patient's current hospital diet: AHA Diet (Heart Healthy), Low Fiber Diet Discharge Diet Recommended Diet: Full Liquid Diet (with low residue diet), Diabetes Type 2 Diet Pending Studies Studies pending at discharge: yes List of pending studies: stool O&P Medical Emergencies . Who to Call and When: Medical Emergencies: If at any time you feel your situation is an emergency, please call 911 immediately. . Non-Emergent Contact Non-Emergency issues call your: Primary Care Provider . . "Provider Documentation" section prepared by Marina Almonte. VTE Core Measure Inpt VTE Proph given/why not?: Enoxaparin (Lovenox)SQ, Contraindicated
[2016-10-15 16:53] VITALS: BP 116/73; PULSE 66; TEMP 36.4; O2SAT 98
[2016-10-18 09:33] LABS: O&P SOURCE OTHER-STOOL
[2016-12-31] MEDS ORDERED: MTR500 PO (13:44)
[2016-12-31] MEDS ORDERED: FRS/40 PO (13:44)
[2016-12-31] MEDS ORDERED: Boost Nutritional Drink PO (13:44)
[2016-12-31] MEDS ORDERED: OXYC-57 PO (13:44)
[2016-12-31] MEDS ORDERED: DXY100 PO (13:44)
[2016-12-31] MEDS ORDERED: CPR500 PO (13:44)
[2016-12-31] MEDS ORDERED: IMD2 PO (13:44)
== END 2016-10-15 17:58 | disposition home or self-care (01) ==
LOC: ENRESERVDT → ENRESERVTM → C.EDB 07:37 → C.MS2W 11:20
PROVIDERS: ADMIT Internal Medicine; ATTEND Internal Medicine
DX: E86.0 Dehydration (principal); R19.7 Diarrhea, unspecified; R11.2 Nausea with vomiting, unspecified; R31.9 Hematuria, unspecified; L27.0 Generalized skin eruption due to drugs and medicaments taken internally; T36.8X5A Adverse effect of other systemic antibiotics, initial encounter; E11.9 Type 2 diabetes mellitus without complications; D68.51 Activated protein C resistance; I10 Essential (primary) hypertension; I50.9 Heart failure, unspecified; I25.10 Atherosclerotic heart disease of native coronary artery without angina pectoris; E03.9 Hypothyroidism, unspecified; R26.9 Unspecified abnormalities of gait and mobility; G40.909 Epilepsy, unspecified, not intractable, without status epilepticus; Z79.82 Long term (current) use of aspirin; Z66 Do not resuscitate; Z95.0 Presence of cardiac pacemaker; Z86.73 Personal history of transient ischemic attack (TIA), and cerebral infarction without residual deficits; Z86.718 Personal history of other venous thrombosis and embolism; Z90.49 Acquired absence of other specified parts of digestive tract; Z90.710 Acquired absence of both cervix and uterus; Z84.1 Family history of disorders of kidney and ureter; Z83.3 Family history of diabetes mellitus

== ENCOUNTER 2016-10-16 17:52 | Emergency (ER) | payer OTHER ==
[~2016-10-16] VITALS: Ht 162.6 cm; Wt 84.2 kg
[~2016-10-16 17:52] MED LIST changes: +CALC-354 PO; -CALC500C70 PO; +DICY10CA55 PO; -ENOX60IN SQ; +HYD500 PO; +LVNIS60 SQ; -METO2.5T PO; +NIAC500T11 PO; -NIACIN PO; +ONDA4TAB10 SL; -[UNRECOGNIZED DRUG - OTHER] PO
[2016-10-16 17:57] VITALS: TEMP 36.9; Ht 162.6 cm; Wt 84.2 kg
[2016-10-16 19:30] LABS: MANUAL MICROSCOPIC REQUIRED? YES; URINE APPEARANCE CLEAR (CLEAR); URINE BILIRUBIN NEG (NEG); URINE COLOR YELLOW; URINE NITRITE NEG (NEG); URINE PH 5.5 (4.5-7.5); UROBILINOGEN NEG (NEG)
[2016-10-16 19:36] LABS: REVIEW REQ? NO
[2016-10-16 19:47] LABS: URINE RBC 0-4 /hpf (0-4)
[2016-10-16 19:48] LABS: URINE AMORPHOUS SEDIMENT PRESENT (NONE PRSENT); URINE BACTERIA NEG (NEG); ZZURINE CULT IF INDIC CATH NO
--- NOTE | 2016-10-16 19:56 | EMERGENCY ROOM VISIT NOTE ---
History Report prepared by Juhi: Radha Bustamante Under the Supervision of: Dr. Colby Dominguez M.D. First contact with patient: 18:56 Chief Complaint: UNABLE TO VOID Stated Complaint: CAN'T URINATE Nursing Triage Summary: pt reports DC from hosp 1 day ago and has not been able to empty bladder since that time , is leakin urine all the time , + dysuria , freq History of Present Illness The patient is a 81 year old female who presents to the Emergency Room via family with complaints of being persistently unable to void her bladder with onset one day ago. The patient was discharged from the hospital one day ago for diarrhea and blood in her urine. She is not currently on an antibiotic. The patient is having some burning during urination when she can urinate and she has some abdominal pain. The patient and her family state that the patient has a follow-up appointment with urology later this week. The patient denies fevers , syncope, vomiting. Source of History: patient, family Onset: one day ago Position: other (bladder ) Quality: other (unable to void bladder) Timing: other (persistent) Associated Symptoms: + abdominal pain, No fevers, No nausea Note: She currently has some burning during urination. She denies syncope. Review of Systems See HPI for pertinent positives & negatives. A total of 10 systems reviewed and were otherwise negative. Past Medical & Surgical Medical Problems: (1) Diabetes (2) DVT (deep venous thrombosis) (3) Heart disease (4) History of pulmonary embolism (5) Hypertension (6) Pacemaker Surgical Problems: (1) H/O: hysterectomy (2) History of partial surgical removal of colon (3) Hx of appendectomy (4) Hx of cholecystectomy Family History Cancer Diabetes mellitus Heart disease Hypertension Kidney disease Kidney stones Social History Smoking Status: Never Smoker Alcohol Use: none Drug Use: none Marital Status: Housing Status: lives with family Occupation Status: unemployed Current/Historical Medications Scheduled Ascorbic Acid (Vitamin C), 1,000 MG PO BID Aspirin (Aspirin Ec), 81 MG PO QAM Calcium Carbonate-Cholecalcife (Caltrate 600+D), 1 TAB PO DAILY Carbamazepine (Carbatrol Er), 300 MG PO BID Citalopram Hydrobromide (Citalopram Hydrobromide), 10 MG PO QAM Dicyclomine Hcl (Bentyl), 1 CAP PO BID Enoxaparin (Enoxaparin Sodium), 60 MG SQ Q12H Fenofibrate (Tricor ), 145 MG PO QAM Fish Oil ([place]-3), 1 CAP PO BID Folic Acid (Folvite), 400 MCG PO QAM Furosemide (Lasix), 40 MG PO QAM Gabapentin (Neurontin), 1,200 MG PO HS Hydroxyurea (Hydrea Cap), 500 MG PO UD Hydroxyurea (Hydroxyurea), 500 MG PO UD Levothyroxine Sodium (Levothyroxine Sodium), 25 MCG PO QAM Metoprolol Tartrate (Lopressor) (Lopressor), 25 MG PO BID Multiple Vitamins W/ Minerals (Preservision Areds 2), 1 CAP PO BID Niacin (Niacin), 500 MG PO QAM Ondasetron Odt (Zofran Odt), 4 MG SL Q6H Oxygen (Oxygen), 2 LITERS NA HS Pantoprazole (Protonix), 40 MG PO QAM Ropinirole (Requip), 3 MG PO HS Ropinirole HCl (Ropinirole HCl), 1 MG PO QAM Rosuvastatin Calcium (Crestor), 5 MG PO QAM Sitagliptin Phosphate (Januvia), 100 MG PO QAM Scheduled PRN Methenamine Hippurate (Methenamine Hippurate), 1 GM PO BID PRN for UTI Oxycodone/Acetaminophen 5MG/325MG (Percocet 5MG/325MG), 1 TABLET PO Q4H PRN for Pain Allergies Coded Allergies: Butorphanol (Verified Allergy, Intermediate, HIVES, 10/08/16) Chlorzoxazone (Verified Allergy, Intermediate, HIVES, 10/08/16) Erythromycin (Verified Allergy, Intermediate, HIVES, 10/08/16) Naloxone (Verified Allergy, Intermediate, HIVES, 10/08/16) Nitrofurantoin (Verified Allergy, Intermediate, HIVES, 10/08/16) Pentazocine (Verified Allergy, Intermediate, HIVES, 10/08/16) Diazepam (Verified Adverse Reaction, Unknown, FELLS LIKE CRAWLING UP A WALL, 10/08/16) Physical Exam Vital Signs Date Time Temp Pulse Resp B/P Pulse Ox O2 Delivery O2 Flow Rate FiO2 10/16/16 20:13 73 18 128/55 96 Room Air 10/16/16 19:28 63 18 101/55 98 Room Air 10/16/16 17:57 36.9 66 18 133/64 98 Room Air Physical Exam GENERAL: Patient is elderly appearing, chronically unwell appearing, in minimal distress. HEENT: No acute trauma, normocephalic atraumatic, mucous membranes moist, no nasal congestion, no scleral icterus. NECK: No stridor, no adenopathy, no meningismus, trachea is midline. LUNGS: No dyspnea. Clear to auscultation and equal bilaterally. No wheeze, no rhonchi. HEART: Regular rate and rhythm. No murmurs, rubs, gallops appreciated. ABDOMEN: Soft, nontender, bowel sounds positive, no masses appreciated, no peritonitis. Bruising of abdomen from heparin shots. BACK: No midline tenderness, no CVA tenderness EXTREMITIES: Normal motion all extremities, no cyanosis, no edema. NEUROLOGIC: Alert and oriented, no acute motor or sensory deficits, no focal weakness, cranial nerves grossly intact. SKIN: No rash, no jaundice, no diaphoresis. Medical Decision & Procedures Laboratory Results Test 10/16/16 19:11 Urine Color YELLOW Urine Appearance CLEAR (CLEAR) Urine pH 5.5 (4.5-7.5) Urine Specific [place] 1.010 (1.000-1.030) Urine Protein NEG (NEG) Urine Glucose (UA) NEG (NEG) Urine Ketones NEG (NEG) Urine Occult Blood 3+ (NEG) Urine Nitrite NEG (NEG) Urine Bilirubin NEG (NEG) Urine Urobilinogen NEG (NEG) Urine Leukocyte Esterase SMALL (NEG) Urine RBC 0-4 /hpf (0-4) Urine WBC 5-10 /hpf (0-5) Urine Epithelial Cells 5-10 /lpf (0-5) Urine Amorphous Sediment PRESENT (NONE PRSENT) Urine Bacteria NEG (NEG) Laboratory results as reviewed by me. ED Course 1856: The patient was evaluated in room C4. A complete history and physical exam was performed. 1914: Per nursing staff, the patient had 500 ml of urine output when the Lake catheter was inserted. 1954: I discussed the case with Dr. Padilla (Urology); he agrees with the plan to leave the lake catheter in place and that the patient does not need antibiotics. He will see the patient within the week. 1955: Reevaluated the patient. Discussed results and discharge instructions with the patient and her family. They verbalized understanding and agreement and will see Dr. Padilla within the week. The patient is ready for discharge. Medical Decision 81 yr old female with acute urinary retention 1 day post dc from hospital and 2 weeks post cystoscopy and bladder biopsy/fulguration. She has 500cc post void thus placed lake. No clear evidence of infection in UA. Urology agrees with leaving lake and avoiding abx at this time. Follow up later this week. Patient and family comfortable with this plan. Discussed symptoms requiring return. Stable and feeling well at discharge. Consults Time Called: 1952 Consulting Physician: Dr. Padilla (Urology) Returned Call: 1954 I discussed the case with Dr. Padilla (Urology); he agrees with the plan to leave the lake catheter in place and that the patient does not need antibiotics. He will see the patient within the week. Impression Primary Impression: Acute urinary retention Scribe Attestation The scribe's documentation has been prepared under my direction and personally reviewed by me in its entirety. I confirm that the note above accurately reflects all work, treatment, procedures, and medical decision making performed by me. Departure Information Dispostion Home / Self-Care Referrals Yan Randolph (PCP) Patient Instructions ED Catheter Care Shyanne, Esha [facility] Additional Instructions Follow up with Urologist this week.
[2016-10-16 20:13] VITALS: BP 128/55; PULSE 73; O2SAT 96
[2016-12-31] MEDS ORDERED: DXY100 PO (13:44)
[2016-12-31] MEDS ORDERED: MTR500 PO (13:44)
[2016-12-31] MEDS ORDERED: OXYC-57 PO (13:44)
[2016-12-31] MEDS ORDERED: CPR500 PO (13:44)
[2016-12-31] MEDS ORDERED: Boost Nutritional Drink PO (13:44)
[2016-12-31] MEDS ORDERED: FRS/40 PO (13:44)
[2016-12-31] MEDS ORDERED: IMD2 PO (13:44)
== END 2016-10-16 20:16 | disposition home or self-care (01) ==
LOC: C.EDB 17:52 → C.EDC 20:16
DX: R33.9 Retention of urine, unspecified (principal); E11.9 Type 2 diabetes mellitus without complications; Z86.718 Personal history of other venous thrombosis and embolism; Z86.711 Personal history of pulmonary embolism; I10 Essential (primary) hypertension; Z95.0 Presence of cardiac pacemaker; I51.9 Heart disease, unspecified; Z80.9 Family history of malignant neoplasm, unspecified; Z83.3 Family history of diabetes mellitus; Z82.49 Family history of ischemic heart disease and other diseases of the circulatory system; Z84.1 Family history of disorders of kidney and ureter; Z79.82 Long term (current) use of aspirin; Z79.899 Other long term (current) drug therapy

== ENCOUNTER 2016-12-21 02:16 | Inpatient (IN) | payer OTHER ==
[~2016-12-21] VITALS: Ht 165.1 cm; Wt 93.8 kg
[2016-12-21] VITALS (7 sets, daily range): BP systolic 113–138; BP diastolic 58–74; PULSE 60–78; TEMP 36.5–37.3; O2SAT 92–100; Ht 165.1 cm; Wt 93.8 kg
[~2016-12-21 02:16] MED LIST changes: +METH-1305 PO; -METH1TAB5 PO
[2016-12-21] MEDS ORDERED: ONDANSETRON INJ 2 MG/ML 2 ML VIAL IV STA ×2 (02:35→04:11)
[2016-12-21] MEDS ORDERED: SODIUM CHLORIDE 0.9% 1000ML 1,000 ML IV STA (02:35)
[2016-12-21] MEDS ORDERED: MECLIZINE HCL 25 MG TAB PO STA (02:35)
[2016-12-21 03:06] LABS: BLOOD UREA NITROGEN 17 mg/dl (7-18); BUN/CREATININE RATIO 20.2 (10-20); CALCIUM 8.7 mg/dl (8.5-10.1); CARBON DIOXIDE 27 mmol/L (21-32); CHLORIDE 98 mmol/L (98-107); CREATININE 0.85 mg/dl (0.60-1.20); GLUCOSE 123 mg/dl (70-99); POTASSIUM 4.5 mmol/L (3.5-5.1); SODIUM 133 mmol/L (136-145)
[2016-12-21 03:09] LABS: BASO % 0.1 %; BASO ABS # 0.01 K/uL (0-0.2); COMPLETE YES; EOS % 1.2 %; HEMATOCRIT 32.7 % (37-47); IG% 0.7 %; LYMPH % 7.8 %; LYMPH ABS # 0.65 K/uL (1.2-3.4); MEAN CELL VOLUME 107.2 fL (80-100); MEAN CORPUSCULAR HGB CONC 34.6 g/dl (32-36); MEAN PLATELET VOLUME 10.5 fL (7.4-10.4); MONO % 5.1 %; NEUT % 85.1 %; PLATELET COUNT 406 K/uL (130-400); RED BLOOD COUNT 3.05 M/uL (4.2-5.4); WHITE BLOOD COUNT 8.31 K/uL (4.8-10.8)
[2016-12-21 03:11] LABS: CKMB/CK RATIO 1.8 (0-3.0)
[2016-12-21] MEDS ORDERED: METO2.5T PO (03:43)
[2016-12-21] MEDS ORDERED: FENO150C3 PO (03:43)
[2016-12-21] MEDS ORDERED: CARB200T PO (03:43)
[2016-12-21] MEDS ORDERED: SODIUM CHLORIDE 0.9% 1000ML 1,000 ML IV SCH (04:25)
[2016-12-21] MEDS ORDERED: ACETAMINOPHEN 325 MG TAB PO PRN (04:30)
[2016-12-21] MEDS ORDERED: ZOLPIDEM TARTRATE 5 MG TAB PO PRN (04:30)
[2016-12-21] MEDS ORDERED: MAGNESIUM HYDROXIDE SUSP 30 ML UDC PO PRN (04:30)
[2016-12-21] MEDS ORDERED: ALUMINUM/MAGNESIUM/SIMETH (MAALOX MAX) 30 ML UDC PO PRN (04:30)
[2016-12-21] MEDS ORDERED: PROMETHAZINE HCL INJ 12.5 MG in SODIUM CHLORIDE 0.9% 50ML 50 ML IV PRN (04:30)
[2016-12-21] MEDS ORDERED: MECLIZINE HCL 12.5 MG TAB PO PRN (04:30)
[2016-12-21] MEDS ORDERED: POLYETHYLENE (MIRALAX) 17 GM PACK PO PRN (04:30)
--- NOTE | 2016-12-21 04:33 | History and Physical ---
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 presented to ED with episode of syncope Pt was discharged yesterday from [facility] had Colonoscopy done for colonic stenosis dilatation pt mentions feeling fine after discharge , later at evening , as pt was going to bathroom -felt dizzy , lightheaded, fell and hit her heat passed out for brief second pt continued to feel nauseas and dizzy while trying to stand up CT head with out contrast negative for any bleed or acute change pt denies of any chest pain or SOB prior to fall in the ER she was given 1 L fluid bolus , feels much better symptomatically no dizzy spell , nausea has improved no report of dark stool after procedure no complain of abdominal pain Past Medical/Surgical History Medical Problems: (1) Diabetes Status: Chronic (2) DVT (deep venous thrombosis) Status: Resolved (3) Heart disease Status: Chronic (4) Hypertension Status: Chronic (5) Pacemaker Status: Chronic Family History Cancer Diabetes mellitus Heart disease Hypertension Kidney disease Kidney stones Social History Smoking Status: Never Smoker Drug Use: none Marital Status: Housing status: lives with family Occupational Status: unemployed Allergies Coded Allergies: Butorphanol (Verified Allergy, Intermediate, HIVES, 12/21/16) Chlorzoxazone (Verified Allergy, Intermediate, HIVES, 12/21/16) Erythromycin (Verified Allergy, Intermediate, HIVES, 12/21/16) Naloxone (Verified Allergy, Intermediate, HIVES, 12/21/16) Nitrofurantoin (Verified Allergy, Intermediate, HIVES, 12/21/16) Pentazocine (Verified Allergy, Intermediate, HIVES, 12/21/16) Diazepam (Verified Adverse Reaction, Unknown, FELLS LIKE CRAWLING UP A WALL, 12/21/16) Home Medications Scheduled Ascorbic Acid (Vitamin C), 1,000 MG PO BID Aspirin (Aspirin Ec), 81 MG PO QAM Calcium Carbonate-Cholecalcife (Caltrate 600+D), 1 TAB PO DAILY Carbamazepine (Tegretol), 300 MG PO BID Citalopram Hydrobromide (Citalopram Hydrobromide), 10 MG PO QAM Enoxaparin (Enoxaparin Sodium), 60 MG SQ Q12H Fenofibrate (Fenofibrate), 150 MG PO DAILY Fish Oil ([place]-3), 1 CAP PO BID Folic Acid (Folvite), 400 MCG PO QAM Furosemide (Lasix), 40 MG PO QAM Gabapentin (Neurontin), 1,200 MG PO HS Hydroxyurea (Hydrea Cap), 500 MG PO UD Hydroxyurea (Hydroxyurea), 500 MG PO UD Levothyroxine Sodium (Levothyroxine Sodium), 25 MCG PO QAM Methenamine Hippurate (Methenamine Hippurate), 1 GM PO BID Metoprolol Tartrate (Lopressor) (Lopressor), 25 MG PO BID Multiple Vitamins W/ Minerals (Preservision Areds 2), 1 CAP PO BID Niacin (Niacin), 500 MG PO QAM Pantoprazole (Protonix), 40 MG PO QAM Ropinirole (Requip), 3 MG PO HS Ropinirole HCl (Ropinirole HCl), 1 MG PO QAM Rosuvastatin Calcium (Crestor), 5 MG PO QAM Sitagliptin Phosphate (Januvia), 100 MG PO QAM Scheduled PRN Metolazone (Zaroxolyn), 2.5 MG PO DAILY PRN for fluid retention Oxycodone/Acetaminophen 5MG/325MG (Percocet 5MG/325MG), 1 TABLET PO Q4H PRN for Pain Review of Systems Constitutional: + fatigue, + weakness Respiratory: No cough, No dyspnea at rest, No dyspnea on exertion, No hemoptysis, No problem reported, No shortness of breath, No sputum, No wheezing Cardiovascular: No PND, No chest pain, No claudication, No edema, No orthopnea , No palpitations, No problem reported Abdomen: No GI bleeding, No constipation, No diarrhea, No nausea, No pain, No problem reported, No vomiting Musculoskeletal: No calf pain, No joint pain, No muscle pain, No problem reported, No swelling Neurologic: + balance problems, + numbness/tingling, + problem reported ( syncope for brief second ), + vertigo, + weakness Physical Exam Vital Signs Date Time Temp Pulse Resp B/P Pulse Ox O2 Delivery O2 Flow Rate FiO2 12/21/16 02:25 36.7 71 18 158/68 93 Room Air 12/21/16 02:22 70 General Appearance: no apparent distress Head: normocephalic, atraumatic Eyes: sclerae normal Neck: thyroid normal Respiratory/Chest: chest non-tender, lungs clear, normal breath sounds, no respiratory distress Cardiovascular: regular rate, rhythm, no murmur Abdomen/GI: normal bowel sounds, non tender, soft Extremities/Musculoskelatal: no calf tenderness, normal capillary refill, no pedal edema Neurologic/Psych: no motor/sensory deficits, alert, normal mood/affect, oriented x 3 Skin: normal color, warm/dry, no rash Lymphatic: no adenopathy Diagnostics Laboratory Results Results Past 24 Hours Test 12/21/16 01:30 12/21/16 02:57 12/21/16 04:20 Range/Units Sodium Level 133 136-145 mmol/L Potassium Level 4.5 3.5-5.1 mmol/L Chloride Level 98 98-107 mmol/L Carbon Dioxide Level 27 21-32 mmol/L Anion Gap 8.0 3-11 mmol/L Blood Urea Nitrogen 17 7-18 mg/dl Creatinine 0.85 0.60-1.20 mg/dl Est Creatinine Clear Calc Drug Dose 56.4 ml/min Estimated GFR () 75.5 Estimated GFR (Non- 65.2 BUN/Creatinine Ratio 20.2 10-20 Random Glucose 123 70-99 mg/dl Calcium Level 8.7 8.5-10.1 mg/dl Total Creatine Kinase 33 26-192 U/L Creatine Kinase MB 0.6 0.5-3.6 ng/ml Creatine Kinase MB Ratio 1.8 0-3.0 Troponin I < 0.015 0-0.045 ng/ml White Blood Count 8.31 4.8-10.8 K/uL Red Blood Count 3.05 4.2-5.4 M/uL Hemoglobin 11.3 12.0-16.0 g/dL Hematocrit 32.7 37-47 % Mean Corpuscular Volume 107.2 80-100 fL Mean Corpuscular Hemoglobin 37.0 25-34 pg Mean Corpuscular Hemoglobin Concent 34.6 32-36 g/dl Platelet Count 406 130-400 K/uL Mean Platelet Volume 10.5 7.4-10.4 fL Neutrophils (%) (Auto) 85.1 % Lymphocytes (%) (Auto) 7.8 % Monocytes (%) (Auto) 5.1 % Eosinophils (%) (Auto) 1.2 % Basophils (%) (Auto) 0.1 % Neutrophils # (Auto) 7.07 1.4-6.5 K/uL Lymphocytes # (Auto) 0.65 1.2-3.4 K/uL Monocytes # (Auto) 0.42 0.11-0.59 K/uL Eosinophils # (Auto) 0.10 0-0.5 K/uL Basophils # (Auto) 0.01 0-0.2 K/uL RDW Standard Deviation 55.9 36.4-46.3 fL RDW Coefficient of Variation 14.2 11.5-14.5 % Immature Granulocyte % (Auto) 0.7 % Immature Granulocyte # (Auto) 0.06 0.00-0.02 K/uL Diagnostic Radiology CT HEAD WITH OUT CONTRAST : prelim report -no evidence of intracranial bleed , no acute change CXR normal Impression Assessment and Plan SYNCOPE : possible vasovagal due to dehydration /dizzy spell with Nausea //vomiting , improved with IV hydration and rest pt had recent colonoscopy -had colonoscopic prep in past 24 hrs , want NPO for the procedure as well will cont IV fluid check orthostatic vital CT head /CT cervical spine negative for acute change monitor in Tele to R/o Arrhythmia ECHO , Carotid Doppler ordered as per syncope work up PT/OT eval observe fall precaution Coronary artery disease status post pacemaker No complain of chest pain or SOB -Continue aspirin 81 mg daily -Continue Lopressor 25 mg BID -Continue Crestor 5 mg daily diabetes mellitus -follow BSGs AC, HS and with meals -insulin sliding scale -cont Januvia History of CHF -Gentle IV hydration -Hold home dose of Lasix 40 mg daily/Hold home dose of metolazone 2.5 mg as needed for possible dehydration Seizure disorder no Sz activity noted with syncope -Continue Carbatrol ER 300 mg twice daily History of PE/DVT -Hx of Factor V Leiden -cont therapeutic dose of Lovenox Hypothyroidism -Continue Synthroid 25 g daily DNR/DNI DISPOSITION ; discharge home when medically stable PT/OT eval prior to discharge social service consult for discharge planning Level of Care Med/Surg Resuscitation Status DO NOT RESUSCITATE VTE Prophylaxis VTE Risk Assessment Done? Y/N: Yes Risk Level: Moderate Given or contraindicated: Enoxaparin (Lovenox)SQ Additional Copies To Anabel Laird M.D.
[2016-12-21 04:38] LABS: URINE APPEARANCE CLEAR (CLEAR); URINE BILIRUBIN NEG (NEG); URINE COLOR YELLOW; URINE EPITHELIAL CELL AUTO >30 /lpf (0-5); URINE NITRITE NEG (NEG); URINE PH 5.5 (4.5-7.5); URINE SPECIFIC GRAVITY 1.015 (1.000-1.030); UROBILINOGEN NEG (NEG); ZZURINE CULT IF INDIC CATH YES
[2016-12-21 04:41] LABS: MANUAL MICROSCOPIC REQUIRED? NO; REVIEW REQ? NO
[2016-12-21] MEDS ORDERED: GLUCOSE 10 TABS/TUBE PO PRN (04:45)
[2016-12-21] MEDS ORDERED: GLUCOSE 40% GEL 15 GM TUBE PO PRN (04:45)
[2016-12-21] MEDS ORDERED: GLUCAGON FOR INJ 1 MG VIAL SQ PRN (04:45)
[2016-12-21] MEDS ORDERED: DEXTROSE 50% 50 ML SYR IV PRN (04:45)
[2016-12-21] MEDS ORDERED: IV FLUIDS COMPLETED PRN (06:00)
--- NOTE | 2016-12-21 06:02 | EMERGENCY ROOM VISIT NOTE ---
History Report prepared by Juhi: Yuriy Man Under the Supervision of: Dr. Colby Dominguez M.D. First contact with patient: 02:18 Chief Complaint: SYNCOPE Stated Complaint: SYNCOPE/DIZZY History of Present Illness The patient is a 81 year old female who presents to the Emergency Room with complaints of a syncopal episode occurring shortly prior to arrival. Per nursing staff, the patient stood up at home and began to feel dizzy. He states that the patient proceeded to pass out. The patient does not believe that she lost consciousness. She does not remember the incident. She denies any pain or injuries from the fall. The patient also complains of nausea, mild neck pain, and mild pain in the back of her head. She denies any chest pain. The patient recently had a colonoscopy with a stretching of the rectum. She is on blood thinners. She notes that she still feels a little dizzy. Source of History: patient Onset: Shortly prior to arrival Quality: other (syncope) Timing: other (episode) Associated Symptoms: + headache (mild back of the head), + nausea, + neck pain (mild), No chest pain Note: The patient also complains of dizziness. Review of Systems See HPI for pertinent positives & negatives. A total of 10 systems reviewed and were otherwise negative. Past Medical & Surgical Medical Problems: (1) Diabetes (2) Dizzy spells (3) DVT (deep venous thrombosis) (4) Heart disease (5) History of pulmonary embolism (6) Hypertension (7) Pacemaker (8) Syncope Surgical Problems: (1) H/O: hysterectomy (2) History of partial surgical removal of colon (3) Hx of appendectomy (4) Hx of cholecystectomy Family History Cancer Diabetes mellitus Heart disease Hypertension Kidney disease Kidney stones Social History Smoking Status: Never Smoker Alcohol Use: none Drug Use: none Marital Status: Housing Status: lives with family Occupation Status: unemployed Current/Historical Medications Scheduled Ascorbic Acid (Vitamin C), 1,000 MG PO BID Aspirin (Aspirin Ec), 81 MG PO QAM Calcium Carbonate-Cholecalcife (Caltrate 600+D), 1 TAB PO DAILY Carbamazepine (Tegretol), 300 MG PO BID Citalopram Hydrobromide (Citalopram Hydrobromide), 10 MG PO QAM Enoxaparin (Enoxaparin Sodium), 60 MG SQ Q12H Fenofibrate (Fenofibrate), 150 MG PO DAILY Fish Oil ([place]-3), 1 CAP PO BID Folic Acid (Folvite), 400 MCG PO QAM Furosemide (Lasix), 40 MG PO QAM Gabapentin (Neurontin), 1,200 MG PO HS Hydroxyurea (Hydrea Cap), 500 MG PO UD Hydroxyurea (Hydroxyurea), 500 MG PO UD Levothyroxine Sodium (Levothyroxine Sodium), 25 MCG PO QAM Methenamine Hippurate (Methenamine Hippurate), 1 GM PO BID Metoprolol Tartrate (Lopressor) (Lopressor), 25 MG PO BID Multiple Vitamins W/ Minerals (Preservision Areds 2), 1 CAP PO BID Niacin (Niacin), 500 MG PO QAM Pantoprazole (Protonix), 40 MG PO QAM Ropinirole (Requip), 3 MG PO HS Ropinirole HCl (Ropinirole HCl), 1 MG PO QAM Rosuvastatin Calcium (Crestor), 5 MG PO QAM Sitagliptin Phosphate (Januvia), 100 MG PO QAM Scheduled PRN Metolazone (Zaroxolyn), 2.5 MG PO DAILY PRN for fluid retention Oxycodone/Acetaminophen 5MG/325MG (Percocet 5MG/325MG), 1 TABLET PO Q4H PRN for Pain Allergies Coded Allergies: Butorphanol (Verified Allergy, Intermediate, HIVES, 12/21/16) Chlorzoxazone (Verified Allergy, Intermediate, HIVES, 12/21/16) Erythromycin (Verified Allergy, Intermediate, HIVES, 12/21/16) Naloxone (Verified Allergy, Intermediate, HIVES, 12/21/16) Nitrofurantoin (Verified Allergy, Intermediate, HIVES, 12/21/16) Pentazocine (Verified Allergy, Intermediate, HIVES, 12/21/16) Diazepam (Verified Adverse Reaction, Unknown, FELLS LIKE CRAWLING UP A WALL, 12/21/16) Physical Exam Vital Signs Date Time Temp Pulse Resp B/P Pulse Ox O2 Delivery O2 Flow Rate FiO2 12/21/16 04:01 63 13 135/61 98 Nasal Cannula 2.0 12/21/16 03:01 64 14 128/68 99 Nasal Cannula 2.0 12/21/16 02:25 36.7 71 18 158/68 93 Room Air 12/21/16 02:22 70 Physical Exam GENERAL: Patient is elderly appearing and in minimal distress. HEENT: No acute trauma, normocephalic atraumatic, mucous membranes dry, no nasal congestion, no scleral icterus. Horizontal nystagmus noted. NECK: No stridor, no adenopathy, no meningismus, trachea is midline. LUNGS: No dyspnea. Clear to auscultation and equal bilaterally. No wheeze, no rhonchi. HEART: Regular rate and rhythm. No murmurs, rubs, gallops appreciated. ABDOMEN: Soft, nontender, bowel sounds positive, no masses appreciated, no peritonitis. BACK: No midline tenderness, no CVA tenderness EXTREMITIES: Normal motion all extremities, no cyanosis, no edema. NEUROLOGIC: Alert and oriented, no acute motor or sensory deficits, no focal weakness, cranial nerves grossly intact. GCS of 15. SKIN: No rash, no jaundice, no diaphoresis. Bruising on the abdomen consistent with blood thinner shots. Medical Decision & Procedures ER Provider Diagnostic Interpretation: CT results per statrad and my review. CT HEAD: No evidence of acute intracranial abnormality or skull fracture. Volume loss and small vessel disease. CT C-SPINE: No fracture or malalignment. Left thyroid lobe low-density lesion. One View Chest X-ray interpreted by me: No infiltrate. No effusion Laboratory Results 12/21/16 02:57 Red Blood Count 3.05, Mean Corpuscular Volume 107.2, Mean Corpuscular Hemoglobin 37.0, Mean Corpuscular Hemoglobin Concent 34.6, Mean Platelet Volume 10.5, Neutrophils (%) (Auto) 85.1, Lymphocytes (%) (Auto) 7.8, Monocytes (%) ( Auto) 5.1, Eosinophils (%) (Auto) 1.2, Basophils (%) (Auto) 0.1, Neutrophils # ( Auto) 7.07, Lymphocytes # (Auto) 0.65, Monocytes # (Auto) 0.42, Eosinophils # ( Auto) 0.10, Basophils # (Auto) 0.01 12/21/16 01:30 Test 12/21/16 01:30 12/21/16 02:57 12/21/16 04:20 Anion Gap 8.0 mmol/L (3-11) Est Creatinine Clear Calc Drug Dose 56.4 ml/min Estimated GFR () 75.5 Estimated GFR (Non- 65.2 BUN/Creatinine Ratio 20.2 (10-20) Calcium Level 8.7 mg/dl (8.5-10.1) Total Creatine Kinase 33 U/L (26-192) Creatine Kinase MB 0.6 ng/ml (0.5-3.6) Creatine Kinase MB Ratio 1.8 (0-3.0) Troponin I < 0.015 ng/ml (0-0.045) White Blood Count 8.31 K/uL (4.8-10.8) Red Blood Count 3.05 M/uL (4.2-5.4) Hemoglobin 11.3 g/dL (12.0-16.0) Hematocrit 32.7 % (37-47) Mean Corpuscular Volume 107.2 fL (80-100) Mean Corpuscular Hemoglobin 37.0 pg (25-34) Mean Corpuscular Hemoglobin Concent 34.6 g/dl (32-36) Platelet Count 406 K/uL (130-400) Mean Platelet Volume 10.5 fL (7.4-10.4) Neutrophils (%) (Auto) 85.1 % Lymphocytes (%) (Auto) 7.8 % Monocytes (%) (Auto) 5.1 % Eosinophils (%) (Auto) 1.2 % Basophils (%) (Auto) 0.1 % Neutrophils # (Auto) 7.07 K/uL (1.4-6.5) Lymphocytes # (Auto) 0.65 K/uL (1.2-3.4) Monocytes # (Auto) 0.42 K/uL (0.11-0.59) Eosinophils # (Auto) 0.10 K/uL (0-0.5) Basophils # (Auto) 0.01 K/uL (0-0.2) RDW Standard Deviation 55.9 fL (36.4-46.3) RDW Coefficient of Variation 14.2 % (11.5-14.5) Immature Granulocyte % (Auto) 0.7 % Immature Granulocyte # (Auto) 0.06 K/uL (0.00-0.02) Urine Color YELLOW Urine Appearance CLEAR (CLEAR) Urine pH 5.5 (4.5-7.5) Urine Specific [place] 1.015 (1.000-1.030) Urine Protein TRACE (NEG) Urine Glucose (UA) NEG (NEG) Urine Ketones NEG (NEG) Urine Occult Blood TRACE (NEG) Urine Nitrite NEG (NEG) Urine Bilirubin NEG (NEG) Urine Urobilinogen NEG (NEG) Urine Leukocyte Esterase TRACE (NEG) Urine WBC (Auto) 10-30 /hpf (0-5) Urine RBC (Auto) 5-10 /hpf (0-4) Urine Hyaline Casts (Auto) 0 /lpf (0-5) Urine Epithelial Cells (Auto) >30 /lpf (0-5) Urine Bacteria (Auto) NEG (NEG) Laboratory results as reviewed by me. Medications Administered Medications (Trade) Dose Ordered Sig/Tone Route Start Time Stop Time Status Last Admin Dose Admin Sodium Chloride (Nss 1000ml) 1,000 ml @ 999 mls/hr Q1H1M STAT IV 12/21/16 02:35 12/21/16 03:35 DC 12/21/16 03:00 999 MLS/HR Ondansetron HCl (Zofran Inj) 4 mg NOW STAT IV 12/21/16 02:35 12/21/16 02:38 DC 12/21/16 03:00 4 MG Meclizine HCl (Antivert Tab) 12.5 mg NOW STAT PO 12/21/16 02:35 12/21/16 02:38 DC 12/21/16 03:00 12.5 MG Ondansetron HCl (Zofran Inj) 4 mg NOW STAT IV 12/21/16 04:11 12/21/16 04:12 DC 12/21/16 04:33 4 MG ECG Indication: syncope Rate (beats per minute): 72 Rhythm: other (atrial paced) Findings: no acute ischemic change, no ectopy ED Course 0228: The patient was evaluated in room A11B. A complete history and physical exam was performed. 0235: Ordered Antivert Tab 12.5 mg PO, Zofran Inj 4 mg IV, Sodium Chloride 1000 ml @ 999 mls/hr. 0410: I reassessed the patient. She is unable to sit up without severe nausea. She does not feel comfortable going home. 0411: Ordered Zofran Inj 4 mg IV. 0422: Upon reevaluation, the patient is resting comfortably. Discussed results and treatment plan with the patient. She verbalized understanding and agreement with the treatment plan. The patient will be evaluated for further management. Medical Decision Differential: Vaso-vagal, Intracerebral Event, Neurologic, Infectious, Volume Deficiency, Hypoglycemia, Electrolyte Abnormality, Cardiac Source, Toxicologic, amongst other pathologies entertained. 81 yr old female with syncopal event his evening after getting up. Associated with vertiginous symptoms and intractable nausea. She has no evidence ICH nor acute injury. No evidence ACS. She is still too nausea to even sit up after above. She has no clear evidence infectious etiology (UA with 30+ epi's). She is stable though unable to ambulate due to symptoms. With syncope and intractable nausea will need further work-up and evaluation. Abdomen soft without peritonitis. No evidence meningitis. No evidence dissection nor PE ( already on sq blood thinner). Suspect syncope vagal in nature with some volume deficiency. Consults Time Called: [phone] Consulting Physician: Dr. Baron Mayorga Returned Call: [phone] Discussed the patient's case. The patient will be evaluated for further treatment and disposition. Impression Primary Impression: Intractable nausea and vomiting Additional Impression: Syncope Scribe Attestation The scribe's documentation has been prepared under my direction and personally reviewed by me in its entirety. I confirm that the note above accurately reflects all work, treatment, procedures, and medical decision making performed by me. Departure Information Dispostion Being Evaluated By Hospitalist Referrals Yan Randolph (PCP) Patient Instructions My [facility] Problem Qualifiers Primary Impression: Intractable nausea and vomiting Vomiting type: unspecified Qualified Codes: R11.2 - Nausea with vomiting, unspecified Additional Impression: Syncope Syncope type: unspecified Qualified Codes: R55 - Syncope and collapse
--- NOTE | 2016-12-21 07:02 | DIAGNOSTIC IMAGING REPORT ---
CHEST ONE VIEW PORTABLE CLINICAL HISTORY: Chest Pain dyspnea COMPARISON STUDY: 09/14/2016 FINDINGS: Prominent central pulmonary vasculature. Permanent bipolar cardiac pacer. Diaphragms smooth. Lungs are clear. IMPRESSION: No acute process. Electronically signed by: Marcos Gutiérrez M.D. 12/21/2016 7:01 AM Dictated Date/Time: 12/21/2016 7:00 AM
--- NOTE | 2016-12-21 07:08 | DIAGNOSTIC IMAGING REPORT ---
CERVICAL SPINE CT CT DOSE: HISTORY: Trauma. Pain. Fall with head injury with neck soreness TECHNIQUE: Multiaxial CT images of the cervical spine were performed and reformatted in the sagittal and coronal plane without the use of contrast. COMPARISON: None. FINDINGS: No fractures. No subluxation. Prevertebral soft tissues and the C1-C2 interval are intact. No pneumothorax. IMPRESSION: No fractures within the cervical spine. Electronically signed by: Marcos Gutiérrez M.D. 12/21/2016 7:07 AM Dictated Date/Time: 12/21/2016 7:06 AM
--- NOTE | 2016-12-21 07:09 | DIAGNOSTIC IMAGING REPORT ---
CT SCAN OF THE BRAIN WITHOUT IV CONTRAST CLINICAL HISTORY: Fall. Head injury. COMPARISON STUDY: No priors. TECHNIQUE: Unenhanced axial CT scan of the brain is performed from the vertex to the skull base. CT DOSE: 1024.72 mGy.cm FINDINGS: Brain parenchyma: There are age-related involutional changes noting minimal subcortical and periventricular microangiopathic change. There is no hemorrhage, mass effect, or evidence of acute territorial ischemia by CT criteria. Hedrick-white matter is preserved. No extra-axial fluid collection is seen. Ventricles, sulci, cisterns: Prominent secondary to involutional change. Intracranial vasculature: There is atherosclerotic calcification of the cavernous carotid arteries. Calvarium: The Skeletal structures are osteopenic. No depressed calvarial fracture is seen. Sinuses and mastoids: The visualized paranasal sinuses are clear. The mastoid air cells are well pneumatized. Orbits: The bony orbits are grossly intact. There are bilateral ocular lens implants. IMPRESSION: There is no hemorrhage, mass effect, or evidence of acute territorial ischemia by CT criteria. Electronically signed by: Gonzales Lujan M.D. 12/21/2016 7:08 AM Dictated Date/Time: 12/21/2016 7:06 AM
--- NOTE | 2016-12-21 07:11 | DIAGNOSTIC IMAGING REPORT ---
ULTRASOUND OF THE CAROTID ARTERIES CLINICAL HISTORY: Syncope. COMPARISON STUDY: No priors. TECHNIQUE: Real-time, grayscale, and color Doppler sonography of the carotid arteries is performed. Images are reviewed in the transverse and longitudinal planes. FINDINGS: Blood pressure in the right arm measures 137/71 and blood pressure in the left arm measures 140/76. The carotid arteries are patent bilaterally and demonstrate antegrade flow. There is mild echogenic shadowing atherosclerotic plaque seen bilaterally. Normal doppler arterial waveforms are seen throughout. Velocity measurements are listed below. Common carotid peak systolic velocity (cm/sec): RIGHT: 70 LEFT: 62 ICA proximal peak systolic velocity (cm/sec): RIGHT: 68 LEFT: 45 ICA mid peak systolic velocity (cm/sec): RIGHT: 88 LEFT: 48 ICA distal peak systolic velocity (cm/sec): RIGHT: 77 LEFT: 57 ICA/CC peak systolic ratio: RIGHT: 1.3 LEFT: 0.9 Antegrade flow was shown in the vertebral arteries. The external carotid arteries are patent. IMPRESSION: 1. There is no sonographic evidence of hemodynamically significant stenosis in the right or left carotid arterial system. 2. Antegrade flow is shown in the vertebral arteries. Electronically signed by: Gonzales Lujan M.D. 12/21/2016 7:10 AM Dictated Date/Time: 12/21/2016 7:08 AM
[2016-12-21] MEDS: LEVOTHYROXINE 25 MCG TAB PO SCH (08:56)
[2016-12-21] MEDS: FoLIC ACID TAB 400 MCG TAB PO SCH (08:56)
[2016-12-21] MEDS: ROSUVASTATIN CALCIUM 10 MG TAB PO SCH (08:56)
[2016-12-21] MEDS: CITALOPRAM 20 MG TAB PO SCH (08:56)
[2016-12-21] MEDS: CALCIUM CARBONATE 1250MG TAB PO SCH (08:56)
[2016-12-21] MEDS: CARBAMAZEPINE 200 MG TAB PO SCH ×2 (08:57→19:45)
[2016-12-21] MEDS: SITAGLIPTIN 100 MG TAB PO SCH (08:57)
[2016-12-21] MEDS: ASPIRIN 81 MG ECTAB PO SCH (08:57)
[2016-12-21] MEDS: CEROVITE ADV FORMULA TAB PO SCH ×2 (08:57→19:46)
[2016-12-21] MEDS: OMEGA-3 (PURIFIED FISH OIL) 1 GM CAP PO SCH ×2 (08:58→19:43)
[2016-12-21] MEDS: ASCORBIC ACID 500 MG TAB PO SCH ×2 (08:58→19:45)
[2016-12-21] MEDS: ROPINIROLE HCL 1 MG TAB PO SCH ×2 (08:58→19:44)
[2016-12-21] MEDS: METOPROLOL TARTRATE 25 MG TAB PO SCH ×2 (08:58→19:43)
[2016-12-21] MEDS: PANTOprazole SOD 40 MG TAB PO SCH (08:59)
[2016-12-21] MEDS: HYDROXYUREA 500 MG CAP PO SCH ×2 (09:00→19:50)
[2016-12-21] MEDS: NIACIN 500 MG TAB IMMEDIATE RELEASE PO SCH (09:00)
[2016-12-21] MEDS: ENOXAPARIN 60 MG/0.6 ML SYR SQ SCH ×2 (09:01→19:41)
[2016-12-21] MEDS: INSULIN HUMAN REGULAR SC SCH ×4 (09:04→20:44)
--- NOTE | 2016-12-21 12:09 | ECHOCARDIOGRAM REPORT ---
*NOTICE TO RECEIVING [employer] This information is strictly Confidential and protected under [place] law. [place] law prohibits you from making any further disclosure of this information unless further disclosure is expressly permitted by the written consent of the person to whom it pertains or is authorized by law. A general authorization for the release of medical or other information is not sufficient for this purpose. Hospital accepts no responsibility if the information is made available to any other person, INCLUDING THE PATIENT. Interpretation Summary * Name: CUONG LIN Study Date: 12/21/2016 06:56 AM BP: 138/72 mmHg * Patient Location: .2T\S\S239\S\1 HR: 68 * : 1935 (M/d/yyy) Gender: Female Height: 61 in * Age: 81 yrs Ethnicity: [place] Weight: 208 lb * Ordering Physician: Corinne Draper * Referring Physician: Self, Referred * Performed By: Aliza Morton [facility] * * Reason For Study: SYNCOPE * BSA: 1.9 m2 * -- Conclusions -- * Normal LV chamber size with mild concentric LVH. * Normal LV systolic function, EF 55-60%. * Flattened septum is consistent with RV pressure/volume overload, otherwise, no segmental left ventricular wall motion abnormalities are noted. * Grade I diastolic dysfunction. * Mild aortic regurgitaiton. Procedure Details * A complete two-dimensional transthoracic echocardiogram was performed (2D, M-mode, Doppler and color flow Doppler). Left Ventricle * The left ventricle is normal in size. * There is mild concentric left ventricular hypertrophy. * Left ventricular systolic function is normal. * No segmental left ventricular wall motion abnormalities are noted. * Ejection Fraction = 55-60%. * Flattened septum is consistent with RV pressure/volume overload. Right Ventricle * The right ventricular cavity size is normal (basal dimension <4.2 cm in right ventricular apical 4-chamber view). * The right ventricular systolic function is normal as assessed by tricuspid annular plane systolic excursion (TAPSE) (normal >1.5 cm). Atria * The left atrial size is normal. * Right atrial size is normal. * No ASD detected; PFO is not assessed. Mitral Valve * The mitral valve is normal in structure and function. Tricuspid Valve * The tricuspid valve is normal in structure and function. Aortic Valve * The aortic valve is trileaflet. * No hemodynamically significant valvular aortic stenosis. * Mild aortic regurgitation. Pulmonic Valve * The pulmonary valve is not well seen, but the Doppler examination is normal without significant regurgitation or stenosis. Great Vessels * The aortic root is normal size. Pericardium/Pleural * There is no pericardial effusion. Left Ventricular Diastolic Function * Grade I diastolic dysfunction, (abnormal relaxation pattern). MMode 2D Measurements and Calculations IVSd 1.5 cm IVSs 1.5 cm LVIDd 3.6 cm LVIDs 3.0 cm LVPWd 1.1 cm LVPWs 1.4 cm IVS/LVPW 1.3 FS 17.9 % EDV(Teich) 56.1 ml ESV(Teich) 34.8 ml EF(Teich) 37.9 % EDV(cubed) 48.4 ml ESV(cubed) 26.8 ml EF(cubed) 44.6 % % IVS thick 2.7 % % LVPW thick 20.3 % LV mass(C)d 164.4 grams LV mass(C)dI 85.6 grams/m\S\2 LV mass(C)s 147.2 grams LV mass(C)sI 76.6 grams/m\S\2 SV(Teich) 21.3 ml SI(Teich) 11.1 ml/m\S\2 SV(cubed) 21.6 ml SI(cubed) 11.3 ml/m\S\2 Ao root diam 3.0 cm Ao root area 7.0 cm\S\2 ACS 2.1 cm LVOT diam 2.2 cm LVOT area 3.8 cm\S\2 LVAd ap4 38.7 cm\S\2 LVLd ap4 8.3 cm EDV(MOD-sp4) 147.9 ml EDV(sp4-el) 153.5 ml LVAs ap4 28.7 cm\S\2 LVLs ap4 7.8 cm ESV(MOD-sp4) 86.7 ml ESV(sp4-el) 89.7 ml EF(MOD-sp4) 41.4 % EF(sp4-el) 41.5 % LVAd ap2 34.5 cm\S\2 LVLd ap2 8.1 cm EDV(MOD-sp2) 117.7 ml EDV(sp2-el) 125.2 ml LVAs ap2 25.1 cm\S\2 LVLs ap2 7.5 cm ESV(MOD-sp2) 69.8 ml ESV(sp2-el) 71.4 ml EF(MOD-sp2) 40.7 % EF(sp2-el) 43.0 % LVLd %diff -2.91 % EDV(MOD-bp) 131.7 ml LVLs %diff -4.19 % ESV(MOD-bp) 77.9 ml EF(MOD-bp) 40.9 % SV(MOD-sp4) 61.2 ml SI(MOD-sp4) 31.9 ml/m\S\2 SV(MOD-sp2) 47.9 ml SI(MOD-sp2) 24.9 ml/m\S\2 SV(MOD-bp) 53.9 ml SI(MOD-bp) 28.0 ml/m\S\2 SV(sp4-el) 63.8 ml SI(sp4-el) 33.2 ml/m\S\2 SV(sp2-el) 53.8 ml SI(sp2-el) 28.0 ml/m\S\2 Doppler Measurements and Calculations MV E max sharon 100.3 cm/sec MV A max sharon 119.7 cm/sec MV E/A 0.84 MV P1/2t max sharon 107.1 cm/sec MV P1/2t 77.6 msec MVA(P1/2t) 2.8 cm\S\2 MV dec slope 404.1 cm/sec\S\2 MV dec time 0.19 sec Ao V2 max 139.3 cm/sec Ao max PG 7.8 mmHg Ao max PG (full) 4.7 mmHg SHAYY(V,A) 2.4 cm\S\2 SHAYY(V,D) 2.4 cm\S\2 AI max sharon 304.9 cm/sec AI max PG 37.2 mmHg AI dec slope 214.0 cm/sec\S\2 AI P1/2t 417.2 msec LV V1 max PG 3.0 mmHg LV V1 max 86.8 cm/sec PA V2 max 96.5 cm/sec PA max PG 3.7 mmHg TR max sharon 242.3 cm/sec
--- NOTE | 2016-12-21 14:29 | Progress Note ---
Subjective Date of Service: December 21, 2016. Subjective Pt evaluation today including: conversation w/ patient, physical exam, lab review, review of studies, review of inpatient medication list Saw/examined the patient in room 239-1 She had a recent colonic dilatation; with microperforation which was clipped - went home on Monday, 12/16 She was doing okay for a few days; yesterday she went to the bathroom, developed dizziness, does not recall it, but she fell At baseline - uses walker for ambulation States she did well with PT/OT here, no dizziness while she has been here no diarrhea, no nausea/vomiting c/o abdominal pain Problem List Medical Problems: (1) Acute urinary retention Status: Acute (2) Bladder mass Status: Acute (3) 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 Status: Acute (4) Dehydration Status: Acute (5) Hematuria Status: Acute (6) Hematuria Status: Acute (7) History of DVT of lower extremity Status: Acute (8) Intractable nausea and vomiting Status: Acute (9) Nausea, vomiting, and diarrhea Status: Acute (10) UTI (urinary tract infection) Status: Acute (11) Weak Status: Acute Review of Systems Constitutional: No chills, No fever, No weakness Respiratory: No cough, No shortness of breath, No sputum Cardiac: No chest pain, No edema, No palpitations Abdomen: + pain, No GI bleeding, No constipation, No diarrhea, No nausea, No vomiting Female : No dysuria, No urinary frequency Neurologic: + balance problems, No memory loss, No numbness/tingling, No paralysis, No weakness Heme: No abnormal bleeding/bruising Medications Current Inpatient Medications Medications (Trade) Dose Ordered Sig/Tone Route Start Time Stop Time Status Last Admin Dose Admin Sodium Chloride (Nss 1000ml) 1,000 ml @ 80 mls/hr [id number] IV 12/21/16 04:25 12/21/16 16:54 12/21/16 06:29 80 MLS/HR Acetaminophen (Tylenol Tab) 650 mg Q4H PRN PO 12/21/16 04:30 01/20/17 04:29 Al Hydrox/Mg Hydrox/Simethicone (Maalox Max Susp) 15 ml Q4H PRN PO 12/21/16 04:30 01/20/17 04:29 Magnesium Hydroxide (Milk Of Magnesia Susp) 30 ml Q12H PRN PO 12/21/16 04:30 01/20/17 04:29 Zolpidem Tartrate (Ambien Tab) 5 mg HSZ PRN PO 12/21/16 04:30 01/20/17 04:29 Ondansetron HCl (Zofran Inj) 4 mg Q6H PRN IV 12/21/16 04:30 01/20/17 04:29 Polyethylene (Miralax Powder Packet) 17 gm DAILY PRN PO 12/21/16 04:30 01/20/17 04:29 Meclizine HCl 12.5 mg 12.5 mg Q8 PRN PO 12/21/16 04:30 01/20/17 04:29 12/21/16 08:55 12.5 MG Promethazine HCl/ Sodium Chloride (Phenergan Inj/ Nss 50ml) 50.5 ml @ 204 mls/hr Q6H PRN IV 12/21/16 04:30 01/20/17 04:29 Aspirin (Ecotrin Tab) 81 mg QAM PO 12/21/16 09:00 01/20/17 08:59 12/21/16 08:57 81 MG Carbamazepine (Tegretol Tab) 300 mg BID PO 12/21/16 09:00 01/20/17 08:59 12/21/16 08:57 300 MG Enoxaparin Sodium (Lovenox Inj) 60 mg Q12H SQ 12/21/16 08:00 01/20/17 07:59 12/21/16 09:01 60 MG Fish Oil ([place]-3 (Purified Fish Oil) Cap) 1 gm BID PO 12/21/16 09:00 01/20/17 08:59 12/21/16 08:58 1 GM Folic Acid (Folvite Tab) 400 mcg QAM PO 12/21/16 09:00 01/20/17 08:59 12/21/16 08:56 400 MCG Gabapentin (Neurontin Tab) 1,200 mg HS PO 12/21/16 21:00 01/20/17 20:59 Hydroxyurea (Hydrea Cap) 500 mg MoThSa@0900,1400,2100 PO 12/22/16 09:00 01/21/17 08:59 Hydroxyurea (Hydrea Cap) 500 mg SuTuWeFr@0900,2100 PO 12/21/16 09:00 01/20/17 08:59 12/21/16 09:00 500 MG Levothyroxine Sodium (Synthroid Tab) 25 mcg DAILYBB PO 12/21/16 07:30 01/20/17 07:29 12/21/16 08:56 25 MCG Metoprolol Tartrate (Lopressor Tab) 25 mg BID PO 12/21/16 09:00 01/20/17 08:59 12/21/16 08:58 25 MG Niacin (Niacin Tab) 500 mg QAM PO 12/21/16 09:00 01/20/17 08:59 12/21/16 09:00 500 MG Oxycodone/ Acetaminophen (Percocet 5-325mg Tab) 1 tab Q4H PRN PO 12/21/16 04:30 01/04/17 04:29 Pantoprazole Sodium (Protonix Tab) 40 mg QAM PO 12/21/16 09:00 01/20/17 08:59 12/21/16 08:59 40 MG Ropinirole HCl (Requip Tab) 3 mg HS PO 12/21/16 21:00 01/20/17 20:59 Ropinirole HCl (Requip Tab) 1 mg QAM PO 12/21/16 09:00 01/20/17 08:59 12/21/16 08:58 1 MG Rosuvastatin Calcium (Crestor Tab) 5 mg QAM PO 12/21/16 09:00 01/20/17 08:59 12/21/16 08:56 5 MG Sitagliptin Phosphate (Januvia Tab) 100 mg QAM PO 12/21/16 09:00 01/20/17 08:59 12/21/16 08:57 100 MG Ascorbic Acid (Vitamin C Tab) 1,000 mg BID PO 12/21/16 09:00 01/20/17 08:59 12/21/16 08:58 1,000 MG Calcium Carbonate (oS-Demario 500 TAB) 1,250 mg DAILY PO 12/21/16 09:00 01/20/17 08:59 12/21/16 08:56 1,250 MG Citalopram Hydrobromide (celeXA TAB) 10 mg QAM PO 12/21/16 09:00 01/20/17 08:59 12/21/16 08:56 10 MG Miscellaneous Information (Order Awaiting Action) 1 ea QS N/A 12/21/16 08:00 01/20/17 07:59 Multivitamins/ Minerals (Multivitamin W/ Minerals Tab) 1 tab BID PO 12/21/16 09:00 01/20/17 08:59 12/21/16 08:57 1 TAB Insulin Human Regular (novoLIN-R) SLIDING SCALE IF C... ACHS SC 12/21/16 07:00 01/20/17 06:59 Glucose (Glucose 40% Gel) 15-30 GRAMS 15 GRAMS... UD PRN PO 12/21/16 04:45 01/20/17 04:44 Glucose (Glucose Chew Tab) 4-8 Tablets 4 Tabl... UD PRN PO 12/21/16 04:45 01/20/17 04:44 Dextrose (Dextrose 50% 50ML Syringe) 25-50ML OF 50% DW IV FOR... UD PRN IV 12/21/16 04:45 01/20/17 04:44 Glucagon (Glucagon Inj) 1 mg UD PRN SQ 12/21/16 04:45 01/20/17 04:44 Miscellaneous (Iv Fluids Completed) 1 ea PRN PRN N/A 12/21/16 06:00 12/21/17 05:59 Objective Vital Signs Date Time Temp Pulse Resp B/P Pulse Ox O2 Delivery O2 Flow Rate FiO2 12/21/16 12:08 37.0 61 18 113/65 95 Room Air 12/21/16 12:00 Room Air 12/21/16 09:28 78 129/74 78 122/71 78 124/62 12/21/16 08:00 Room Air 12/21/16 07:35 36.5 63 20 134/73 100 Nasal Cannula 2.0 12/21/16 05:10 36.6 62 19 138/72 99 Nasal Cannula 2.0 12/21/16 04:53 62 13 130/60 98 12/21/16 04:47 62 13 130/60 98 Nasal Cannula 2.0 12/21/16 04:01 63 13 135/61 98 Nasal Cannula 2.0 12/21/16 03:01 64 14 128/68 99 Nasal Cannula 2.0 12/21/16 02:25 36.7 71 18 158/68 93 Room Air 12/21/16 02:22 70 Physical Exam General Appearance: no apparent distress Respiratory/Chest: lungs clear, normal breath sounds, no respiratory distress, no accessory muscle use Cardiovascular: regular rate, rhythm, no edema, no murmur Abdomen: normal bowel sounds, soft, + tenderness Extremities: normal inspection, no pedal edema Laboratory Results Last 24 Hours Test 12/21/16 01:30 12/21/16 02:57 12/21/16 04:20 12/21/16 11:32 Sodium Level 133 mmol/L Potassium Level 4.5 mmol/L Chloride Level 98 mmol/L Carbon Dioxide Level 27 mmol/L Anion Gap 8.0 mmol/L Blood Urea Nitrogen 17 mg/dl Creatinine 0.85 mg/dl Est Creatinine Clear Calc Drug Dose 56.4 ml/min Estimated GFR () 75.5 Estimated GFR (Non- 65.2 BUN/Creatinine Ratio 20.2 Random Glucose 123 mg/dl Calcium Level 8.7 mg/dl Total Creatine Kinase 33 U/L Creatine Kinase MB 0.6 ng/ml Creatine Kinase MB Ratio 1.8 Troponin I < 0.015 ng/ml White Blood Count 8.31 K/uL Red Blood Count 3.05 M/uL Hemoglobin 11.3 g/dL Hematocrit 32.7 % Mean Corpuscular Volume 107.2 fL Mean Corpuscular Hemoglobin 37.0 pg Mean Corpuscular Hemoglobin Concent 34.6 g/dl Platelet Count 406 K/uL Mean Platelet Volume 10.5 fL Neutrophils (%) (Auto) 85.1 % Lymphocytes (%) (Auto) 7.8 % Monocytes (%) (Auto) 5.1 % Eosinophils (%) (Auto) 1.2 % Basophils (%) (Auto) 0.1 % Neutrophils # (Auto) 7.07 K/uL Lymphocytes # (Auto) 0.65 K/uL Monocytes # (Auto) 0.42 K/uL Eosinophils # (Auto) 0.10 K/uL Basophils # (Auto) 0.01 K/uL RDW Standard Deviation 55.9 fL RDW Coefficient of Variation 14.2 % Immature Granulocyte % (Auto) 0.7 % Immature Granulocyte # (Auto) 0.06 K/uL Urine Color YELLOW Urine Appearance CLEAR Urine pH 5.5 Urine Specific [place] 1.015 Urine Protein TRACE Urine Glucose (UA) NEG Urine Ketones NEG Urine Occult Blood TRACE Urine Nitrite NEG Urine Bilirubin NEG Urine Urobilinogen NEG Urine Leukocyte Esterase TRACE Urine WBC (Auto) 10-30 /hpf Urine RBC (Auto) 5-10 /hpf Urine Hyaline Casts (Auto) 0 /lpf Urine Epithelial Cells (Auto) >30 /lpf Urine Bacteria (Auto) NEG Bedside Glucose 115 mg/dl Assessment and Plan This is a 81 year old female with a PMH of DM2, HTN, hypothyroidism, DVT on Lovenox, HLD, restless leg syndrome with a recent GI procedure - colonic dilation; with a microperforation which required clipping - was discharged on - presented to [facility] due to syncope Syncope and Fall patient states she was in the bathroom when this occurred uses walker at baseline; she states she was using it does not completely recall the fall; but does know that she hit her head Head CT, cervical CT - no acute findings carotid U/S - negative echo - with no acute findings; some RV overload has worked with PT/OT - PT recommendation is home, OT recommends inpatient rehab will monitor the patient overnight, give some IVFs, check orthostatics more PT/OT tomorrow (12/22), then decide the disposition of the patient Recent Colonic Dilation on 12/16, had a colonoscopic dilation complicated by a microperforation; which was clipped she was sent home, states that she's been having abdominal pain since then will check an abdominal/pelvic CT with IV contrast Hx. of DVT of lower extremity will continue Lovenox 60mg q12 DM2 cont. Januvia and a sliding scale HTN blood pressure controlled, continue current medications Hypothyroidism check TSH continue Synthroid DVT ppx Lovenox DNR
[2016-12-21] MEDS ORDERED: OPTIRAY 320 IV PRN (16:00)
--- NOTE | 2016-12-21 16:24 | DIAGNOSTIC IMAGING REPORT ---
ABDOMEN AND PELVIS CT WITH IV CONTRAST CT DOSE: 1065.36 mGy.cm HISTORY: recent colon dilation with microperf; lower abdominal pain TECHNIQUE: Multiaxial CT images of the abdomen and pelvis were performed following the use of intravenous contrast. COMPARISON STUDY: Abdomen and pelvis CT 10/08/2016. FINDINGS: Postoperative changes consistent with a subtotal colectomy. Within the midabdomen adjacent to the ileocolonic anastomosis there is an adjacent 3.5 cm gas and fluid collection consistent with an abscess. There appears to be a small fistula tract from the abscess to the anastomosis. No evidence for bowel obstruction. Focal right posterior bladder wall thickening measuring up to 1 cm in thickness. The uterus is surgically absent. There is an IVC filter present. Stable 1.7 cm right adrenal gland nodule. Multiple stable small nodules within the left adrenal gland. Cholecystectomy. No hepatic or splenic masses. Small diverticulum at the second portion of the duodenum. The pancreas enhances normally. Bilateral renal hypodense lesions are again noted. These favor cysts. These are not significantly changed compared to the prior study. No hydronephrosis. Colonic diverticulosis. Pacemaker wires are noted. Old, healed left-sided rib fractures. The spleen remains enlarged measuring 14 cm in length. IMPRESSION: 1. Postoperative changes consistent with subtotal colectomy with an ileocolonic anastomosis. Within the midabdomen adjacent to the anastomosis there is a 3.5 cm gas and fluid collection consistent with an abscess. There appears to be a small fistula tract extending to the anastomosis. 2. Focal right posterior bladder wall thickening. This could be due to a focal cystitis. However, a bladder mass could also have a similar appearance. Cystoscopy should be considered for further evaluation. 3. Additional findings as described above. Electronically signed by: Gregory Roth M.D. 12/21/2016 4:22 PM Dictated Date/Time: 12/21/2016 4:14 PM
[2016-12-21] MEDS: GABAPENTIN 600 MG TAB PO SCH (19:43)
[2016-12-21] MEDS: OXYCODONE/ACETAMINOPHEN 5-325 TAB PO PRN (19:51)
[2016-12-21] MEDS: CIPROFLOXACIN / D5W 400 MG in PREMIXED IN D5W 200 ML IV SCH (22:16)
[2016-12-21] MEDS: METRONIDAZOLE / NSS 500 MG in PREMIXED NSS 100 ML IV SCH (22:16)
[2016-12-22 03:17] VITALS: BP 135/74; PULSE 65; TEMP 36.5; O2SAT 93
[2016-12-22] MEDS: LEVOTHYROXINE 25 MCG TAB PO SCH (05:55)
[2016-12-22] MEDS: METRONIDAZOLE / NSS 500 MG in PREMIXED NSS 100 ML IV SCH ×3 (05:55→20:22)
[2016-12-22 06:59] LABS: HEMATOCRIT 32.1 % (37-47); MEAN CELL VOLUME 108.1 fL (80-100); MEAN CORPUSCULAR HGB CONC 33.3 g/dl (32-36); MEAN PLATELET VOLUME 9.8 fL (7.4-10.4); PLATELET COUNT 454 K/uL (130-400); RED BLOOD COUNT 2.97 M/uL (4.2-5.4)
[2016-12-22] MEDS: INSULIN HUMAN REGULAR SC SCH ×4 (07:00→20:25)
[2016-12-22] MEDS: ENOXAPARIN 60 MG/0.6 ML SYR SQ SCH ×2 (07:22→20:22)
[2016-12-22] MEDS: ROPINIROLE HCL 1 MG TAB PO SCH ×2 (07:23→20:23)
[2016-12-22] MEDS: CEROVITE ADV FORMULA TAB PO SCH ×2 (07:23→20:23)
[2016-12-22] MEDS: ASCORBIC ACID 500 MG TAB PO SCH ×2 (07:23→20:27)
[2016-12-22] MEDS: OMEGA-3 (PURIFIED FISH OIL) 1 GM CAP PO SCH ×2 (07:23→20:26)
[2016-12-22] MEDS: CARBAMAZEPINE 200 MG TAB PO SCH ×2 (07:23→20:28)
[2016-12-22] MEDS: NIACIN 500 MG TAB IMMEDIATE RELEASE PO SCH (07:25)
[2016-12-22] MEDS: FoLIC ACID TAB 400 MCG TAB PO SCH (07:25)
[2016-12-22] MEDS: PANTOprazole SOD 40 MG TAB PO SCH (07:25)
[2016-12-22] MEDS: METOPROLOL TARTRATE 25 MG TAB PO SCH ×2 (07:25→20:22)
[2016-12-22] MEDS: ASPIRIN 81 MG ECTAB PO SCH (07:25)
[2016-12-22] MEDS: CITALOPRAM 20 MG TAB PO SCH (07:25)
[2016-12-22] MEDS: CALCIUM CARBONATE 1250MG TAB PO SCH (07:26)
[2016-12-22] MEDS: SITAGLIPTIN 100 MG TAB PO SCH (07:26)
[2016-12-22] MEDS: ROSUVASTATIN CALCIUM 10 MG TAB PO SCH (07:26)
[2016-12-22 07:28] LABS: BUN/CREATININE RATIO 19.8 (10-20); CALCIUM 8.6 mg/dl (8.5-10.1); CREATININE 0.91 mg/dl (0.60-1.20); POTASSIUM 4.8 mmol/L (3.5-5.1)
[2016-12-22] MEDS: HYDROXYUREA 500 MG CAP PO SCH ×3 (07:28→20:24)
[2016-12-22 07:38] LABS: THYROID STIMULATING HORMONE 2.63 uIu/ml (0.300-4.500)
[2016-12-22 07:58] VITALS: BP 146/76; PULSE 69; TEMP 36.9; O2SAT 95
--- NOTE | 2016-12-22 09:09 | Surgery Consultation ---
Consultation Date of Consultation: December 22, 2016. 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 presented to ED with episode of syncope Pt was discharged yesterday from [facility] had Colonoscopy done for colonic stenosis dilatation pt mentions feeling fine after discharge , later at evening , as pt was going to bathroom -felt dizzy , lightheaded, fell and hit her heat passed out for brief second pt continued to feel nauseas and dizzy while trying to stand up CT head with out contrast negative for any bleed or acute change pt denies of any chest pain or SOB prior to fall in the ER she was given 1 L fluid bolus , feels much better symptomatically no dizzy spell , nausea has improved no report of dark stool after procedure no complain of abdominal pain pt had CT scan abd + pelvis, which Dx intra-abdominal abscess, 3.5cm, I got a call for consult this pt, now pt is still have some abdominal pain, no nausea, no vomiting, no fever, no bloody stool, pt said she had colonoscopy yesterday, after colonoscopy she was told she had micro -perforation on colon by her GI doctor, pt was sent to home with clear diet, Past Medical/Surgical History Medical Problems: (1) Acute urinary retention Status: Acute (2) Bladder mass Status: Acute (3) Current use of skilled nursing anticoagulation Status: Acute (4) Dehydration Status: Acute (5) Hematuria Status: Acute (6) Hematuria Status: Acute (7) History of DVT of lower extremity Status: Acute (8) Intractable nausea and vomiting Status: Acute (9) Nausea, vomiting, and diarrhea Status: Acute (10) UTI (urinary tract infection) Status: Acute (11) Weak Status: Acute Family History Cancer Diabetes mellitus Heart disease Hypertension Kidney disease Kidney stones Social History Smoking Status: Never Smoker Drug Use: none Marital Status: Housing Status: lives with family Occupation Status: unemployed Allergies Coded Allergies: Butorphanol (Verified Allergy, Intermediate, HIVES, 12/21/16) Chlorzoxazone (Verified Allergy, Intermediate, HIVES, 12/21/16) Erythromycin (Verified Allergy, Intermediate, HIVES, 12/21/16) Naloxone (Verified Allergy, Intermediate, HIVES, 12/21/16) Nitrofurantoin (Verified Allergy, Intermediate, HIVES, 12/21/16) Pentazocine (Verified Allergy, Intermediate, HIVES, 12/21/16) Diazepam (Verified Adverse Reaction, Unknown, FELLS LIKE CRAWLING UP A WALL, 12/21/16) Home Medications Scheduled Ascorbic Acid (Vitamin C), 1,000 MG PO BID Aspirin (Aspirin Ec), 81 MG PO QAM Calcium Carbonate-Cholecalcife (Caltrate 600+D), 1 TAB PO DAILY Carbamazepine (Tegretol), 300 MG PO BID Citalopram Hydrobromide (Citalopram Hydrobromide), 10 MG PO QAM Enoxaparin (Enoxaparin Sodium), 60 MG SQ Q12H Fenofibrate (Fenofibrate), 150 MG PO DAILY Fish Oil (Lincoln-3), 1 CAP PO BID Folic Acid (Folvite), 400 MCG PO QAM Furosemide (Lasix), 40 MG PO QAM Gabapentin (Neurontin), 1,200 MG PO HS Hydroxyurea (Hydrea Cap), 500 MG PO UD Hydroxyurea (Hydroxyurea), 500 MG PO UD Levothyroxine Sodium (Levothyroxine Sodium), 25 MCG PO QAM Methenamine Hippurate (Methenamine Hippurate), 1 GM PO BID Metoprolol Tartrate (Lopressor) (Lopressor), 25 MG PO BID Multiple Vitamins W/ Minerals (Preservision Areds 2), 1 CAP PO BID Niacin (Niacin), 500 MG PO QAM Pantoprazole (Protonix), 40 MG PO QAM Ropinirole (Requip), 3 MG PO HS Ropinirole HCl (Ropinirole HCl), 1 MG PO QAM Rosuvastatin Calcium (Crestor), 5 MG PO QAM Sitagliptin Phosphate (Januvia), 100 MG PO QAM Scheduled PRN Metolazone (Zaroxolyn), 2.5 MG PO DAILY PRN for fluid retention Oxycodone/Acetaminophen 5MG/325MG (Percocet 5MG/325MG), 1 TABLET PO Q4H PRN for Pain Current Inpatient Medications Current Inpatient Medications Medications (Trade) Dose Ordered Sig/Tone Route Start Time Stop Time Status Last Admin Dose Admin Acetaminophen (Tylenol Tab) 650 mg Q4H PRN PO 12/21/16 04:30 6/23/17 04:29 Al Hydrox/Mg Hydrox/Simethicone (Maalox Max Susp) 15 ml Q4H PRN PO 12/21/16 04:30 01/20/17 04:29 Magnesium Hydroxide (Milk Of Magnesia Susp) 30 ml Q12H PRN PO 12/21/16 04:30 01/20/17 04:29 Zolpidem Tartrate (Ambien Tab) 5 mg HSZ PRN PO 12/21/16 04:30 01/20/17 04:29 Ondansetron HCl (Zofran Inj) 4 mg Q6H PRN IV 12/21/16 04:30 01/20/17 04:29 Polyethylene (Miralax Powder Packet) 17 gm DAILY PRN PO 12/21/16 04:30 01/20/17 04:29 Meclizine HCl 12.5 mg 12.5 mg Q8 PRN PO 12/21/16 04:30 01/20/17 04:29 12/21/16 08:55 12.5 MG Promethazine HCl/ Sodium Chloride (Phenergan Inj/ Nss 50ml) 50.5 ml @ 204 mls/hr Q6H PRN IV 12/21/16 04:30 01/20/17 04:29 Aspirin (Ecotrin Tab) 81 mg QAM PO 12/21/16 09:00 01/20/17 08:59 12/22/16 07:25 81 MG Carbamazepine (Tegretol Tab) 300 mg BID PO 12/21/16 09:00 01/20/17 08:59 12/22/16 07:23 300 MG Enoxaparin Sodium (Lovenox Inj) 60 mg Q12H SQ 12/21/16 08:00 01/20/17 07:59 12/22/16 07:22 60 MG Fish Oil (Lincoln-3 (Purified Fish Oil) Cap) 1 gm BID PO 12/21/16 09:00 01/20/17 08:59 12/22/16 07:23 1 GM Folic Acid (Folvite Tab) 400 mcg QAM PO 12/21/16 09:00 01/20/17 08:59 12/22/16 07:25 400 MCG Gabapentin (Neurontin Tab) 1,200 mg HS PO 12/21/16 21:00 01/20/17 20:59 12/21/16 19:43 1,200 MG Hydroxyurea (Hydrea Cap) 500 mg MoThSa@0900,1400,2100 PO 12/22/16 09:00 01/21/17 08:59 12/22/16 07:28 500 MG Hydroxyurea (Hydrea Cap) 500 mg SuTuWeFr@0900,2100 PO 12/21/16 09:00 01/20/17 08:59 12/21/16 19:50 500 MG Levothyroxine Sodium (Synthroid Tab) 25 mcg DAILYBB PO 12/21/16 07:30 01/20/17 07:29 12/22/16 05:55 25 MCG Metoprolol Tartrate (Lopressor Tab) 25 mg BID PO 12/21/16 09:00 01/20/17 08:59 12/22/16 07:25 25 MG Niacin (Niacin Tab) 500 mg QAM PO 12/21/16 09:00 01/20/17 08:59 12/22/16 07:25 500 MG Oxycodone/ Acetaminophen (Percocet 5-325mg Tab) 1 tab Q4H PRN PO 12/21/16 04:30 01/04/17 04:29 12/21/16 19:51 1 TAB Pantoprazole Sodium (Protonix Tab) 40 mg QAM PO 12/21/16 09:00 01/20/17 08:59 12/22/16 07:25 40 MG Ropinirole HCl (Requip Tab) 3 mg HS PO 12/21/16 21:00 01/20/17 20:59 12/21/16 19:44 3 MG Ropinirole HCl (Requip Tab) 1 mg QAM PO 12/21/16 09:00 01/20/17 08:59 12/22/16 07:23 1 MG Rosuvastatin Calcium (Crestor Tab) 5 mg QAM PO 12/21/16 09:00 01/20/17 08:59 12/22/16 07:26 5 MG Sitagliptin Phosphate (Januvia Tab) 100 mg QAM PO 12/21/16 09:00 01/20/17 08:59 12/22/16 07:26 100 MG Ascorbic Acid (Vitamin C Tab) 1,000 mg BID PO 12/21/16 09:00 01/20/17 08:59 12/22/16 07:23 1,000 MG Calcium Carbonate (oS-Demario 500 TAB) 1,250 mg DAILY PO 12/21/16 09:00 01/20/17 08:59 12/22/16 07:26 1,250 MG Citalopram Hydrobromide (celeXA TAB) 10 mg QAM PO 12/21/16 09:00 01/20/17 08:59 12/22/16 07:25 10 MG Miscellaneous Information (Order Awaiting Action) 1 ea QS N/A 12/21/16 08:00 01/20/17 07:59 Multivitamins/ Minerals (Multivitamin W/ Minerals Tab) 1 tab BID PO 12/21/16 09:00 01/20/17 08:59 12/22/16 07:23 1 TAB Insulin Human Regular (novoLIN-R) SLIDING SCALE IF C... ACHS SC 12/21/16 07:00 01/20/17 06:59 Glucose (Glucose 40% Gel) 15-30 GRAMS 15 GRAMS... UD PRN PO 12/21/16 04:45 01/20/17 04:44 Glucose (Glucose Chew Tab) 4-8 Tablets 4 Tabl... UD PRN PO 12/21/16 04:45 01/20/17 04:44 Dextrose (Dextrose 50% 50ML Syringe) 25-50ML OF 50% DW IV FOR... UD PRN IV 12/21/16 04:45 01/20/17 04:44 Glucagon (Glucagon Inj) 1 mg UD PRN SQ 12/21/16 04:45 01/20/17 04:44 Miscellaneous (Iv Fluids Completed) 1 ea PRN PRN N/A 12/21/16 06:00 12/21/17 05:59 Ioversol 111 ml 111 ml UD PRN IV 12/21/16 16:00 12/25/16 15:59 Ciprofloxacin/ Dextrose 400 mg/ Prmx 200 ml @ 100 mls/hr Q12 IV 12/21/16 21:00 12/31/16 20:59 12/21/16 22:16 100 MLS/HR Metronidazole/Prmx (Flagyl / Nss/ Premixed Nss) 100 ml @ 100 mls/hr Q8H IV 12/21/16 21:00 12/31/16 20:59 12/22/16 05:55 100 MLS/HR Review of Systems Constitutional: No chills, No fatigue, No fever, No problem reported, No sweats , No weakness, No weight loss Eyes: No diplopia, No discharge, No eye pain, No problem reported, No redness, No worsening of vision ENT: No dental problems, No hearing loss, No nasal symptoms, No problem reported, No sore throat, No tinnitus, No trouble swallowing, No unusual epistaxis Respiratory: + problem reported (PE), No cough, No dyspnea at rest, No dyspnea on exertion, No hemoptysis, No shortness of breath, No sputum, No wheezing Cardiovascular: + problem reported (CHF, pacemakerIVc filter), No PND, No chest pain, No claudication, No edema, No orthopnea, No palpitations Abdomen: + pain Neurologic: No balance problems, No memory loss, No numbness/tingling, No paralysis, No problem reported, No vertigo, No weakness Psychiatric: No anhedonism, No anxiety, No depression symptoms, No insomnia, No problem reported, No substance abuse Endocrine: No excessive thirst, No excessive urination, No fatigue, No problem reported Hematologic / Lymphatic: No abnormal bleeding/bruising, No clotting problems, No night sweats, No problem reported, No swollen lymph nodes Physical Exam Date Time Temp Pulse Resp B/P Pulse Ox O2 Delivery O2 Flow Rate FiO2 12/22/16 07:58 36.9 69 20 146/76 95 Room Air 12/22/16 04:00 Room Air 12/22/16 03:17 36.5 65 19 135/74 93 Room Air 12/22/16 00:01 Room Air 12/21/16 23:05 36.7 71 19 125/58 92 Room Air 12/21/16 20:10 Room Air 12/21/16 19:26 37.3 62 18 132/71 92 Room Air 12/21/16 16:00 Room Air 12/21/16 15:33 37.3 60 18 129/60 95 Room Air 12/21/16 12:08 37.0 61 18 113/65 95 Room Air 12/21/16 12:00 Room Air 12/21/16 09:28 78 129/74 78 122/71 78 124/62 General Appearance: WD/WN, no apparent distress Head: normocephalic Eyes: normal inspection ENT: normal ENT inspection Neck: supple, no JVD Respiratory/Chest: chest non-tender, lungs clear Cardiovascular: regular rate, rhythm, no edema, no gallop, no JVD Abdomen/GI: normal bowel sounds, non tender, soft, no organomegaly Extremities/Musculoskelatal: normal inspection, no calf tenderness, normal capillary refill Neurologic/Psych: alert, normal mood/affect Skin: normal color, warm/dry Laboratory Results Last 24 Hours Test 12/21/16 11:32 12/21/16 16:25 12/21/16 20:16 12/22/16 06:12 Bedside Glucose 115 mg/dl 127 mg/dl 177 mg/dl 124 mg/dl Test 12/22/16 06:35 White Blood Count 6.00 K/uL Red Blood Count 2.97 M/uL Hemoglobin 10.7 g/dL Hematocrit 32.1 % Mean Corpuscular Volume 108.1 fL Mean Corpuscular Hemoglobin 36.0 pg Mean Corpuscular Hemoglobin Concent 33.3 g/dl RDW Standard Deviation 56.5 fL RDW Coefficient of Variation 14.3 % Platelet Count 454 K/uL Mean Platelet Volume 9.8 fL Sodium Level 137 mmol/L Potassium Level 4.8 mmol/L Chloride Level 102 mmol/L Carbon Dioxide Level 29 mmol/L Anion Gap 6.0 mmol/L Blood Urea Nitrogen 18 mg/dl Creatinine 0.91 mg/dl Est Creatinine Clear Calc Drug Dose 56.8 ml/min Estimated GFR () 69.5 Estimated GFR (Non- 60.0 BUN/Creatinine Ratio 19.8 Random Glucose 119 mg/dl Calcium Level 8.6 mg/dl Thyroid Stimulating Hormone (TSH) 2.630 uIu/ml Assessment & Plan ABDOMEN AND PELVIS CT WITH IV CONTRAST CT DOSE: 1065.36 mGy.cm HISTORY: recent colon dilation with microperf; lower abdominal pain TECHNIQUE: Multiaxial CT images of the abdomen and pelvis were performed following the use of intravenous contrast. COMPARISON STUDY: Abdomen and pelvis CT 10/08/2016. FINDINGS: Postoperative changes consistent with a subtotal colectomy. Within the midabdomen adjacent to the ileocolonic anastomosis there is an adjacent 3.5 cm gas and fluid collection consistent with an abscess. There appears to be a small fistula tract from the abscess to the anastomosis. No evidence for bowel obstruction. Focal right posterior bladder wall thickening measuring up to 1 cm in thickness. The uterus is surgically absent. There is an IVC filter present. Stable 1.7 cm right adrenal gland nodule. Multiple stable small nodules within the left adrenal gland. Cholecystectomy. No hepatic or splenic masses. Small diverticulum at the second portion of the duodenum. The pancreas enhances normally. Bilateral renal hypodense lesions are again noted. These favor cysts. These are not significantly changed compared to the prior study. No hydronephrosis. Colonic diverticulosis. Pacemaker wires are noted. Old, healed left-sided rib fractures. The spleen remains enlarged measuring 14 cm in length. IMPRESSION: 1. Postoperative changes consistent with subtotal colectomy with an ileocolonic anastomosis. Within the midabdomen adjacent to the anastomosis there is a 3.5 cm gas and fluid collection consistent with an abscess. There appears to be a small fistula tract extending to the anastomosis. 2. Focal right posterior bladder wall thickening. This could be due to a focal cystitis. However, a bladder mass could also have a similar appearance. Cystoscopy should be considered for further evaluation. 3. Additional findings as described above. IMP, S/P colonoscopy , intra-abdominal abscess base on pt has multiple medical problem, recommend to transfer to [facility], D/W pt about transfer, pt understood, she agrees with transfer, D/W pt's hospitalist,
[2016-12-22] MEDS: CIPROFLOXACIN / D5W 400 MG in PREMIXED IN D5W 200 ML IV SCH ×2 (09:28→20:22)
--- NOTE | 2016-12-22 09:46 | Progress Note ---
Subjective Date of Service: December 22, 2016. Subjective Pt evaluation today including: conversation w/ patient, physical exam, lab review, review of studies, conversation w/ wig sales consultant, review of inpatient medication list Saw/examined the patient in room 239 She's doing okay, no dizziness, no problems with balance or ambulation with her walker Her abdominal pain persists Discussed the CT findings with her - explained to her about the abscess and possibly needing drainage; she is agreeable with any path set forth. +PO intake and no nausea/vomiting/diarrhea Problem List Medical Problems: (1) Acute urinary retention Status: Acute (2) Bladder mass Status: Acute (3) Current use of chcf anticoagulation Status: Acute (4) Dehydration Status: Acute (5) Hematuria Status: Acute (6) Hematuria Status: Acute (7) History of DVT of lower extremity Status: Acute (8) Intractable nausea and vomiting Status: Acute (9) Nausea, vomiting, and diarrhea Status: Acute (10) UTI (urinary tract infection) Status: Acute (11) Weak Status: Acute Review of Systems Constitutional: No chills, No fever, No weakness Cardiac: No chest pain Abdomen: + pain, No GI bleeding, No constipation, No diarrhea, No nausea, No vomiting Neurologic: + balance problems (improving), No numbness/tingling, No paralysis , No vertigo, No weakness Medications Current Inpatient Medications Medications (Trade) Dose Ordered Sig/Tone Route Start Time Stop Time Status Last Admin Dose Admin Acetaminophen (Tylenol Tab) 650 mg Q4H PRN PO 12/21/16 04:30 01/20/17 04:29 Al Hydrox/Mg Hydrox/Simethicone (Maalox Max Susp) 15 ml Q4H PRN PO 12/21/16 04:30 01/20/17 04:29 Magnesium Hydroxide (Milk Of Magnesia Susp) 30 ml Q12H PRN PO 12/21/16 04:30 01/20/17 04:29 Zolpidem Tartrate (Ambien Tab) 5 mg HSZ PRN PO 12/21/16 04:30 01/20/17 04:29 Ondansetron HCl (Zofran Inj) 4 mg Q6H PRN IV 12/21/16 04:30 01/20/17 04:29 Polyethylene (Miralax Powder Packet) 17 gm DAILY PRN PO 12/21/16 04:30 01/20/17 04:29 Meclizine HCl 12.5 mg 12.5 mg Q8 PRN PO 12/21/16 04:30 01/20/17 04:29 12/21/16 08:55 12.5 MG Promethazine HCl/ Sodium Chloride (Phenergan Inj/ Nss 50ml) 50.5 ml @ 204 mls/hr Q6H PRN IV 12/21/16 04:30 01/20/17 04:29 Aspirin (Ecotrin Tab) 81 mg QAM PO 12/21/16 09:00 01/20/17 08:59 12/22/16 07:25 81 MG Carbamazepine (Tegretol Tab) 300 mg BID PO 12/21/16 09:00 01/20/17 08:59 12/22/16 07:23 300 MG Enoxaparin Sodium (Lovenox Inj) 60 mg Q12H SQ 12/21/16 08:00 01/20/17 07:59 12/22/16 07:22 60 MG Fish Oil (Puryear-3 (Purified Fish Oil) Cap) 1 gm BID PO 12/21/16 09:00 01/20/17 08:59 12/22/16 07:23 1 GM Folic Acid (Folvite Tab) 400 mcg QAM PO 12/21/16 09:00 01/20/17 08:59 12/22/16 07:25 400 MCG Gabapentin (Neurontin Tab) 1,200 mg HS PO 12/21/16 21:00 01/20/17 20:59 12/21/16 19:43 1,200 MG Hydroxyurea (Hydrea Cap) 500 mg MoThSa@0900,1400,2100 PO 12/22/16 09:00 01/21/17 08:59 12/22/16 07:28 500 MG Hydroxyurea (Hydrea Cap) 500 mg SuTuWeFr@0900,2100 PO 12/21/16 09:00 01/20/17 08:59 12/21/16 19:50 500 MG Levothyroxine Sodium (Synthroid Tab) 25 mcg DAILYBB PO 12/21/16 07:30 01/20/17 07:29 12/22/16 05:55 25 MCG Metoprolol Tartrate (Lopressor Tab) 25 mg BID PO 12/21/16 09:00 01/20/17 08:59 12/22/16 07:25 25 MG Niacin (Niacin Tab) 500 mg QAM PO 12/21/16 09:00 01/20/17 08:59 12/22/16 07:25 500 MG Oxycodone/ Acetaminophen (Percocet 5-325mg Tab) 1 tab Q4H PRN PO 12/21/16 04:30 01/04/17 04:29 12/21/16 19:51 1 TAB Pantoprazole Sodium (Protonix Tab) 40 mg QAM PO 12/21/16 09:00 01/20/17 08:59 12/22/16 07:25 40 MG Ropinirole HCl (Requip Tab) 3 mg HS PO 12/21/16 21:00 01/20/17 20:59 12/21/16 19:44 3 MG Ropinirole HCl (Requip Tab) 1 mg QAM PO 12/21/16 09:00 01/20/17 08:59 12/22/16 07:23 1 MG Rosuvastatin Calcium (Crestor Tab) 5 mg QAM PO 12/21/16 09:00 01/20/17 08:59 12/22/16 07:26 5 MG Sitagliptin Phosphate (Januvia Tab) 100 mg QAM PO 12/21/16 09:00 01/20/17 08:59 12/22/16 07:26 100 MG Ascorbic Acid (Vitamin C Tab) 1,000 mg BID PO 12/21/16 09:00 01/20/17 08:59 12/22/16 07:23 1,000 MG Calcium Carbonate (oS-Demario 500 TAB) 1,250 mg DAILY PO 12/21/16 09:00 01/20/17 08:59 12/22/16 07:26 1,250 MG Citalopram Hydrobromide (celeXA TAB) 10 mg QAM PO 12/21/16 09:00 01/20/17 08:59 12/22/16 07:25 10 MG Miscellaneous Information (Order Awaiting Action) 1 ea QS N/A 12/21/16 08:00 01/20/17 07:59 Multivitamins/ Minerals (Multivitamin W/ Minerals Tab) 1 tab BID PO 12/21/16 09:00 01/20/17 08:59 12/22/16 07:23 1 TAB Insulin Human Regular (novoLIN-R) SLIDING SCALE IF C... ACHS SC 12/21/16 07:00 01/20/17 06:59 Glucose (Glucose 40% Gel) 15-30 GRAMS 15 GRAMS... UD PRN PO 12/21/16 04:45 01/20/17 04:44 Glucose (Glucose Chew Tab) 4-8 Tablets 4 Tabl... UD PRN PO 12/21/16 04:45 01/20/17 04:44 Dextrose (Dextrose 50% 50ML Syringe) 25-50ML OF 50% DW IV FOR... UD PRN IV 12/21/16 04:45 01/20/17 04:44 Glucagon (Glucagon Inj) 1 mg UD PRN SQ 12/21/16 04:45 01/20/17 04:44 Miscellaneous (Iv Fluids Completed) 1 ea PRN PRN N/A 12/21/16 06:00 12/21/17 05:59 Ioversol 111 ml 111 ml UD PRN IV 12/21/16 16:00 12/25/16 15:59 Ciprofloxacin/ Dextrose 400 mg/ Prmx 200 ml @ 100 mls/hr Q12 IV 12/21/16 21:00 12/31/16 20:59 12/21/16 22:16 100 MLS/HR Metronidazole/Prmx (Flagyl / Nss/ Premixed Nss) 100 ml @ 100 mls/hr Q8H IV 12/21/16 21:00 12/31/16 20:59 12/22/16 05:55 100 MLS/HR Objective Vital Signs Date Time Temp Pulse Resp B/P Pulse Ox O2 Delivery O2 Flow Rate FiO2 12/22/16 08:00 Room Air 12/22/16 07:58 36.9 69 20 146/76 95 Room Air 12/22/16 04:00 Room Air 12/22/16 03:17 36.5 65 19 135/74 93 Room Air 12/22/16 00:01 Room Air 12/21/16 23:05 36.7 71 19 125/58 92 Room Air 12/21/16 20:10 Room Air 12/21/16 19:26 37.3 62 18 132/71 92 Room Air 12/21/16 16:00 Room Air 12/21/16 15:33 37.3 60 18 129/60 95 Room Air 12/21/16 12:08 37.0 61 18 113/65 95 Room Air 12/21/16 12:00 Room Air 12/21/16 09:28 78 129/74 78 122/71 78 124/62 Physical Exam General Appearance: no apparent distress Respiratory/Chest: lungs clear, normal breath sounds, no respiratory distress, no accessory muscle use Cardiovascular: regular rate, rhythm, no edema, no murmur Abdomen: normal bowel sounds, soft, + tenderness Laboratory Results Last 24 Hours Test 12/21/16 11:32 12/21/16 16:25 12/21/16 20:16 12/22/16 06:12 Bedside Glucose 115 mg/dl 127 mg/dl 177 mg/dl 124 mg/dl Test 12/22/16 06:35 White Blood Count 6.00 K/uL Red Blood Count 2.97 M/uL Hemoglobin 10.7 g/dL Hematocrit 32.1 % Mean Corpuscular Volume 108.1 fL Mean Corpuscular Hemoglobin 36.0 pg Mean Corpuscular Hemoglobin Concent 33.3 g/dl RDW Standard Deviation 56.5 fL RDW Coefficient of Variation 14.3 % Platelet Count 454 K/uL Mean Platelet Volume 9.8 fL Sodium Level 137 mmol/L Potassium Level 4.8 mmol/L Chloride Level 102 mmol/L Carbon Dioxide Level 29 mmol/L Anion Gap 6.0 mmol/L Blood Urea Nitrogen 18 mg/dl Creatinine 0.91 mg/dl Est Creatinine Clear Calc Drug Dose 56.8 ml/min Estimated GFR () 69.5 Estimated GFR (Non- 60.0 BUN/Creatinine Ratio 19.8 Random Glucose 119 mg/dl Calcium Level 8.6 mg/dl Thyroid Stimulating Hormone (TSH) 2.630 uIu/ml Assessment and Plan This is a 81 year old female with a PMH of DM2, HTN, hypothyroidism, DVT on Lovenox, HLD, restless leg syndrome with a recent GI procedure - colonic dilation; with a microperforation which required clipping - was discharged on - presented to [facility] due to syncope Abdominal Abscess 12/22 CT abdomen was performed yesterday gas/fluid collection in the mid-abdomen; 3.5cm, likely abscess noted patient started on Cipro + Flagyl [facility] general surgery input - recommendation made for transfer to [facility] will await further word from GI and radiology regarding this 12/21 on 12/16, had a colonoscopic dilation complicated by a microperforation; which was clipped she was sent home, states that she's been having abdominal pain since then will check an abdominal/pelvic CT with IV contrast Syncope and Fall 12/22 states that her symptoms have resolved She is able to ambulate with her walker fine work-up with no findings, likely related to dehydration vs. vasovagal syncope 12/21 patient states she was in the bathroom when this occurred uses walker at baseline; she states she was using it does not completely recall the fall; but does know that she hit her head Head CT, cervical CT - no acute findings carotid U/S - negative echo - with no acute findings; some RV overload has worked with PT/OT - PT recommendation is home, OT recommends inpatient rehab will monitor the patient overnight, give some IVFs, check orthostatics more PT/OT tomorrow (12/22), then decide the disposition of the patient Hx. of DVT of lower extremity will continue Lovenox 60mg q12 DM2 cont. Januvia and a sliding scale HTN blood pressure controlled, continue current medications Hypothyroidism check TSH continue Synthroid DVT ppx Lovenox DNR
[2016-12-22] MEDS: OXYCODONE/ACETAMINOPHEN 5-325 TAB PO PRN (09:49)
--- NOTE | 2016-12-22 11:14 | DIAGNOSTIC IMAGING REPORT ---
RIGHT KNEE 3 VIEWS HISTORY: right knee pain s/p fall Right COMPARISON: None. FINDINGS: The bones are osteopenic. No definite fracture or dislocation. Anterior soft tissue swelling. Small to moderate knee effusion. Moderate to severe tricompartmental osteoarthritis. No radiopaque foreign bodies. IMPRESSION: 1. No fracture or dislocation within the right knee. 2. Small to moderate knee effusion. 3. Anterior soft tissue swelling. 4. Moderate to severe tricompartmental osteoarthritis. Electronically signed by: Gregory Roth M.D. 12/22/2016 11:13 AM Dictated Date/Time: 12/22/2016 11:12 AM
[2016-12-22 11:37] VITALS: BP 156/74; PULSE 64; TEMP 36.3; O2SAT 93
[2016-12-22 15:14] VITALS: BP 146/74; PULSE 63; TEMP 36.6; O2SAT 95
--- NOTE | 2016-12-22 16:00 | Medical Consult ---
Consultation Note Date of Service December 22, 2016. 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 She is s/p cscopy with microperforation on Monday, now admit for syncope. On admission, she had moderate abd tenderness in RLQ, without rebound or gurading. Ct was requested, and shows a fistulat at anastamotic tract leading to 3.5 cm abscess. She was placed on clears and abx. Today, she is hungry, stooling, afebrile and withotu leukocytosisand has only mild abd tenderness on exam. I discussed her management with radiology, who do not feel that abscess is amenable to IR drainage. A/P: Abscess appears small, and I am hoping that it will resolve with bowel rest and abx. Will cont clears, abx x 5-7 days, and then re-scan. She will need nutrition in the interim - I spoke to hospitalist about TPN. Plan d/w pt and daughter.
[2016-12-22] MEDS ORDERED: TPN/PPN CONSULT PHARMACY PRN ×2 (16:15)
[2016-12-22 19:05] VITALS: BP 153/76; PULSE 66; TEMP 37; O2SAT 96
[2016-12-22] MEDS: GABAPENTIN 600 MG TAB PO SCH (20:27)
[2016-12-22 23:56] VITALS: BP 126/72; PULSE 63; TEMP 36.9; O2SAT 94
[2016-12-23] VITALS (7 sets, daily range): BP systolic 126–161; BP diastolic 66–78; PULSE 61–71; TEMP 36.4–37.2; O2SAT 93–97
[2016-12-23] MEDS: METRONIDAZOLE / NSS 500 MG in PREMIXED NSS 100 ML IV SCH ×3 (05:39→20:36)
[2016-12-23] MEDS: LEVOTHYROXINE 25 MCG TAB PO SCH (06:27)
[2016-12-23 07:50] LABS: HEMATOCRIT 29.7 % (37-47); MEAN CELL VOLUME 107.2 fL (80-100); MEAN CORPUSCULAR HEMOGLOBIN 36.8 pg (25-34); MEAN CORPUSCULAR HGB CONC 34.3 g/dl (32-36); MEAN PLATELET VOLUME 10.6 fL (7.4-10.4); PLATELET COUNT 422 K/uL (130-400); RED BLOOD COUNT 2.77 M/uL (4.2-5.4); WHITE BLOOD COUNT 5.45 K/uL (4.8-10.8)
--- NOTE | 2016-12-23 07:56 | Clinical Documentation Query ---
TARA Pickett : CLINICAL DOCUMENTATION QUERIES QUERY 1 OF 3 Patient is a 81 year old female admitted the day after discharge from [facility] [place] for colonic stenosis dilatation where she sustained a microperforation which was clipped. Ongoing complaints of abdominal pain resulted in a CT scan of the abdomen which demonstrated "Within the mid-abdomen adjacent to the anastomosis there is a 3.5 cm gas and fluid collection consistent with an abscess. There appears to be a small fistula tract extending to the anastomosis". So as to avoid label coder uncertainty, as appropriate, consider explicit documentation as suggested below. 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 Clinical Indicators: As above Treatment: IV antibiotics, CT scan of abdomen, surgical consultation Risk Factors: Colonoscopy with dilatation QUERY 2 OF 3 Documentation includes CHF, not otherwise specified. Echocardiogram demonstrated a normal LVEF of 55-60% with diastolic dysfunction noted. As appropriate, please specify the type and acuity/chronicity of CHF in your patient. Thank you. In your clinical opinion is this patient being managed for: ( X ) Chronic diastolic CHF ( ) Other explanation of clinical findings (Please Explain) ( ) Unable to determine (Please Define) ( ) Need to Discuss ( ) Not Agree The medical record reflects the following clinical findings, treatment, and risk factors. Clinical Indicators: As above Treatment: Home regimen includes Lasix, Zaroxolyn, Lopressor Risk Factors: As above QUERY 3 OF 3 Urine culture positive for Staph species. She is being treated with Ciprofloxacin. Consider documentation as suggested below as clinically appropriate. Thank you. In your clinical opinion is this patient being managed for: ( X ) Urinary tract infection ( ) Other explanation of clinical findings (Please Explain) ( ) Unable to determine (Please Define) ( ) Need to Discuss ( ) Not Agree The medical record reflects the following clinical findings, treatment, and risk factors. Clinical Indicators: As above Treatment: Ciprofloxacin Risk Factors: Age, gender Please clarify and document your clinical opinion in the progress notes and discharge summary. Terms such as "probable", "suspected", "likely", "questionable", "possible", or "still to be ruled out" are acceptable. IF IN AGREEMENT, YOU MUST DOCUMENT ABOVE DIAGNOSTIC STATEMENT IN DAILY PROGRESS NOTES AND DISCHARGE SUMMARY. This document is not part of the patient's record. Thank You, Tomás Gee, DIANN [phone]
[2016-12-23] MEDS: CARBAMAZEPINE 200 MG TAB PO SCH ×2 (08:18→20:39)
[2016-12-23] MEDS: ROSUVASTATIN CALCIUM 10 MG TAB PO SCH (08:18)
[2016-12-23] MEDS: CIPROFLOXACIN / D5W 400 MG in PREMIXED IN D5W 200 ML IV SCH ×2 (08:18→22:27)
[2016-12-23] MEDS: ASCORBIC ACID 500 MG TAB PO SCH ×2 (08:19→20:40)
[2016-12-23] MEDS: HYDROXYUREA 500 MG CAP PO SCH ×2 (08:20→20:33)
[2016-12-23 08:21] LABS: BUN/CREATININE RATIO 16.8 (10-20); CREATININE 0.74 mg/dl (0.60-1.20); MAGNESIUM 1.7 mg/dl (1.8-2.4); PHOSPHORUS 2.5 mg/dl (2.5-4.9); POTASSIUM 4.3 mmol/L (3.5-5.1)
[2016-12-23] MEDS: CEROVITE ADV FORMULA TAB PO SCH ×2 (08:21→20:42)
[2016-12-23] MEDS: SITAGLIPTIN 100 MG TAB PO SCH (08:21)
[2016-12-23] MEDS: METOPROLOL TARTRATE 25 MG TAB PO SCH ×2 (08:21→20:42)
[2016-12-23] MEDS: PANTOprazole SOD 40 MG TAB PO SCH (08:21)
[2016-12-23] MEDS: ROPINIROLE HCL 1 MG TAB PO SCH ×2 (08:21→20:40)
[2016-12-23] MEDS: CITALOPRAM 20 MG TAB PO SCH (08:22)
[2016-12-23] MEDS: FoLIC ACID TAB 400 MCG TAB PO SCH (08:22)
[2016-12-23] MEDS: ASPIRIN 81 MG ECTAB PO SCH (08:22)
[2016-12-23] MEDS: OMEGA-3 (PURIFIED FISH OIL) 1 GM CAP PO SCH ×2 (08:22→20:37)
[2016-12-23] MEDS: CALCIUM CARBONATE 1250MG TAB PO SCH (08:22)
[2016-12-23] MEDS: ENOXAPARIN 60 MG/0.6 ML SYR SQ SCH ×2 (08:23→20:37)
[2016-12-23] MEDS: NIACIN 500 MG TAB IMMEDIATE RELEASE PO SCH (08:24)
[2016-12-23] MEDS: INSULIN HUMAN REGULAR SC SCH ×4 (08:25→20:36)
[2016-12-23 09:03] LABS: CALCIUM 8.7 mg/dl (8.5-10.1)
--- NOTE | 2016-12-23 09:16 | Progress Note ---
Subjective Date of Service: December 23, 2016. Subjective Pt evaluation today including: conversation w/ patient, physical exam, lab review, review of studies, conversation w/ solutions market consultant, review of inpatient medication list Saw/examined the patient in room 239 She's doing okay, her dizziness has resolved No fevers/chills, no diarrhea/constipation +abdominal tenderness and distention persist Problem List Medical Problems: (1) Acute urinary retention Status: Acute (2) Bladder mass Status: Acute (3) Current use of nursing home anticoagulation Status: Acute (4) Dehydration Status: Acute (5) Hematuria Status: Acute (6) Hematuria Status: Acute (7) History of DVT of lower extremity Status: Acute (8) Intractable nausea and vomiting Status: Acute (9) Nausea, vomiting, and diarrhea Status: Acute (10) UTI (urinary tract infection) Status: Acute (11) Weak Status: Acute Review of Systems Constitutional: No chills, No fever Respiratory: No cough, No shortness of breath Cardiac: No chest pain, No edema, No palpitations Abdomen: + pain, No GI bleeding, No constipation, No diarrhea, No nausea, No vomiting Medications Current Inpatient Medications Medications (Trade) Dose Ordered Sig/Tone Route Start Time Stop Time Status Last Admin Dose Admin Acetaminophen (Tylenol Tab) 650 mg Q4H PRN PO 12/21/16 04:30 01/20/17 04:29 Al Hydrox/Mg Hydrox/Simethicone (Maalox Max Susp) 15 ml Q4H PRN PO 12/21/16 04:30 01/20/17 04:29 Magnesium Hydroxide (Milk Of Magnesia Susp) 30 ml Q12H PRN PO 12/21/16 04:30 01/20/17 04:29 Zolpidem Tartrate (Ambien Tab) 5 mg HSZ PRN PO 12/21/16 04:30 01/20/17 04:29 Ondansetron HCl (Zofran Inj) 4 mg Q6H PRN IV 12/21/16 04:30 01/20/17 04:29 Polyethylene (Miralax Powder Packet) 17 gm DAILY PRN PO 12/21/16 04:30 01/20/17 04:29 Meclizine HCl 12.5 mg 12.5 mg Q8 PRN PO 12/21/16 04:30 01/20/17 04:29 12/21/16 08:55 12.5 MG Promethazine HCl/ Sodium Chloride (Phenergan Inj/ Nss 50ml) 50.5 ml @ 204 mls/hr Q6H PRN IV 12/21/16 04:30 01/20/17 04:29 Aspirin (Ecotrin Tab) 81 mg QAM PO 12/21/16 09:00 01/20/17 08:59 12/23/16 08:22 81 MG Carbamazepine (Tegretol Tab) 300 mg BID PO 12/21/16 09:00 01/20/17 08:59 12/23/16 08:18 300 MG Enoxaparin Sodium (Lovenox Inj) 60 mg Q12H SQ 12/21/16 08:00 01/20/17 07:59 12/23/16 08:23 60 MG Fish Oil ([place]-3 (Purified Fish Oil) Cap) 1 gm BID PO 12/21/16 09:00 01/20/17 08:59 12/23/16 08:22 1 GM Folic Acid (Folvite Tab) 400 mcg QAM PO 12/21/16 09:00 01/20/17 08:59 12/23/16 08:22 400 MCG Gabapentin (Neurontin Tab) 1,200 mg HS PO 12/21/16 21:00 01/20/17 20:59 12/22/16 20:27 1,200 MG Hydroxyurea (Hydrea Cap) 500 mg MoThSa@0900,1400,2100 PO 12/22/16 09:00 01/21/17 08:59 12/22/16 20:24 500 MG Hydroxyurea (Hydrea Cap) 500 mg SuTuWeFr@0900,2100 PO 12/21/16 09:00 01/20/17 08:59 12/23/16 08:20 500 MG Levothyroxine Sodium (Synthroid Tab) 25 mcg DAILYBB PO 12/21/16 07:30 01/20/17 07:29 12/23/16 06:27 25 MCG Metoprolol Tartrate (Lopressor Tab) 25 mg BID PO 12/21/16 09:00 01/20/17 08:59 12/23/16 08:21 25 MG Niacin (Niacin Tab) 500 mg QAM PO 12/21/16 09:00 01/20/17 08:59 12/23/16 08:24 500 MG Oxycodone/ Acetaminophen (Percocet 5-325mg Tab) 1 tab Q4H PRN PO 12/21/16 04:30 01/04/17 04:29 12/22/16 09:49 1 TAB Pantoprazole Sodium (Protonix Tab) 40 mg QAM PO 12/21/16 09:00 01/20/17 08:59 12/23/16 08:21 40 MG Ropinirole HCl (Requip Tab) 3 mg HS PO 12/21/16 21:00 01/20/17 20:59 12/22/16 20:23 3 MG Ropinirole HCl (Requip Tab) 1 mg QAM PO 12/21/16 09:00 01/20/17 08:59 12/23/16 08:21 1 MG Rosuvastatin Calcium (Crestor Tab) 5 mg QAM PO 12/21/16 09:00 01/20/17 08:59 12/23/16 08:18 5 MG Sitagliptin Phosphate (Januvia Tab) 100 mg QAM PO 12/21/16 09:00 01/20/17 08:59 12/23/16 08:21 100 MG Ascorbic Acid (Vitamin C Tab) 1,000 mg BID PO 12/21/16 09:00 01/20/17 08:59 12/23/16 08:19 1,000 MG Calcium Carbonate (oS-Demario 500 TAB) 1,250 mg DAILY PO 12/21/16 09:00 01/20/17 08:59 12/23/16 08:22 1,250 MG Citalopram Hydrobromide (celeXA TAB) 10 mg QAM PO 12/21/16 09:00 01/20/17 08:59 12/23/16 08:22 10 MG Miscellaneous Information (Order Awaiting Action) 1 ea QS N/A 12/21/16 08:00 01/20/17 07:59 Multivitamins/ Minerals (Multivitamin W/ Minerals Tab) 1 tab BID PO 12/21/16 09:00 01/20/17 08:59 12/23/16 08:21 1 TAB Insulin Human Regular (novoLIN-R) SLIDING SCALE IF C... ACHS SC 12/21/16 07:00 01/20/17 06:59 12/23/16 08:25 3 UNITS Glucose (Glucose 40% Gel) 15-30 GRAMS 15 GRAMS... UD PRN PO 12/21/16 04:45 01/20/17 04:44 Glucose (Glucose Chew Tab) 4-8 Tablets 4 Tabl... UD PRN PO 12/21/16 04:45 01/20/17 04:44 Dextrose (Dextrose 50% 50ML Syringe) 25-50ML OF 50% DW IV FOR... UD PRN IV 12/21/16 04:45 01/20/17 04:44 Glucagon (Glucagon Inj) 1 mg UD PRN SQ 12/21/16 04:45 01/20/17 04:44 Miscellaneous (Iv Fluids Completed) 1 ea PRN PRN N/A 12/21/16 06:00 12/21/17 05:59 Ioversol 111 ml 111 ml UD PRN IV 12/21/16 16:00 12/25/16 15:59 Ciprofloxacin/ Dextrose 400 mg/ Prmx 200 ml @ 100 mls/hr Q12 IV 12/21/16 21:00 12/31/16 20:59 12/23/16 08:18 100 MLS/HR Metronidazole/Prmx (Flagyl / Nss/ Premixed Nss) 100 ml @ 100 mls/hr Q8H IV 12/21/16 21:00 12/31/16 20:59 12/23/16 05:39 100 MLS/HR Miscellaneous Information 1 ea 1 ea UD PRN N/A 12/22/16 16:15 01/21/17 16:14 Magnesium Sulfate/ Prmx (Magnesium Sulfate/Premixed D5W) 100 ml @ 100 mls/hr TODAY@0900 ONCE IV 12/23/16 09:00 12/23/16 09:59 Objective Vital Signs Date Time Temp Pulse Resp B/P Pulse Ox O2 Delivery O2 Flow Rate FiO2 12/23/16 07:35 36.8 67 18 138/75 94 Room Air 12/23/16 04:04 36.8 64 20 129/66 95 Room Air 12/23/16 04:00 Room Air 12/22/16 23:59 Room Air 12/22/16 23:56 36.9 63 19 126/72 94 Room Air 12/22/16 20:00 Room Air 12/22/16 19:05 37.0 66 19 153/76 96 Room Air 12/22/16 16:00 Room Air 12/22/16 15:14 36.6 63 19 146/74 95 Room Air 12/22/16 12:00 Room Air 12/22/16 11:37 36.3 64 20 156/74 93 Room Air Physical Exam General Appearance: no apparent distress Respiratory/Chest: no respiratory distress, no accessory muscle use Abdomen: normal bowel sounds, soft, + distended, + tenderness (diffusely) Neurologic/Psychiatric: no motor/sensory deficits, alert, normal mood/affect Laboratory Results Last 24 Hours Test 12/22/16 15:56 12/22/16 20:21 12/23/16 06:54 Bedside Glucose 95 mg/dl 109 mg/dl 134 mg/dl White Blood Count 5.45 K/uL Red Blood Count 2.77 M/uL Hemoglobin 10.2 g/dL Hematocrit 29.7 % Mean Corpuscular Volume 107.2 fL Mean Corpuscular Hemoglobin 36.8 pg Mean Corpuscular Hemoglobin Concent 34.3 g/dl RDW Standard Deviation 55.2 fL RDW Coefficient of Variation 14.1 % Platelet Count 422 K/uL Mean Platelet Volume 10.6 fL Sodium Level 131 mmol/L Potassium Level 4.3 mmol/L Chloride Level 98 mmol/L Carbon Dioxide Level 26 mmol/L Anion Gap 7.0 mmol/L Blood Urea Nitrogen 12 mg/dl Creatinine 0.74 mg/dl Est Creatinine Clear Calc Drug Dose 65.5 ml/min Estimated GFR () 89.3 Estimated GFR (Non- 77.1 BUN/Creatinine Ratio 16.8 Random Glucose 112 mg/dl Phosphorus Level 2.5 mg/dl Magnesium Level 1.7 mg/dl Assessment and Plan This is a 81 year old female with a PMH of DM2, HTN, hypothyroidism, DVT on Lovenox, HLD, restless leg syndrome with a recent GI procedure - colonic dilation; with a microperforation which required clipping - was discharged on - presented to [facility] due to syncope Intra-Abdominal Abscess Secondary to Colonic Dilation & Microperforation 12/23 appreciate GI and radiology input seems like this abscess is not amenable to IR drainage for now, we will manage with IV abx. (Cipro + Flagyl) clears and TPN for 5-[address] abdomen after 5-7 days 12/22 CT abdomen was performed yesterday gas/fluid collection in the mid-abdomen; 3.5cm, likely abscess noted patient started on Cipro + Flagyl appreciate general surgery input - recommendation made for transfer to [facility] will await further word from GI and radiology regarding this 12/21 on 12/16, had a colonoscopic dilation complicated by a microperforation; which was clipped she was sent home, states that she's been having abdominal pain since then will check an abdominal/pelvic CT with IV contrast Syncope and Fall - resolved 12/22 states that her symptoms have resolved She is able to ambulate with her walker fine work-up with no findings, likely related to dehydration vs. vasovagal syncope 12/21 patient states she was in the bathroom when this occurred uses walker at baseline; she states she was using it does not completely recall the fall; but does know that she hit her head Head CT, cervical CT - no acute findings carotid U/S - negative echo - with no acute findings; some RV overload has worked with PT/OT - PT recommendation is home, OT recommends inpatient rehab will monitor the patient overnight, give some IVFs, check orthostatics more PT/OT tomorrow (12/22), then decide the disposition of the patient Hx. of DVT of lower extremity will continue Lovenox 60mg q12 DM2 cont. Januvia and a sliding scale sugars are stable, monitor with TPN and clears HTN blood pressure controlled, continue current medications Hypothyroidism TSH wnl continue Synthroid DVT ppx Lovenox DNR
[2016-12-23] MEDS: MAGNESIUM SULFATE 1GM / D5W 1 GM in PREMIXED IN D5W 100 ML IV ONE ×2 (09:36→10:23)
--- NOTE | 2016-12-23 10:16 | Surgery Progress Note ---
Surgery Progress Note Date of Service December 23, 2016. Subjective Post OP Day: HD # 1 No SOB, No chest pain, No nausea, No vomiting still having pain , controlled Objective Vital Signs: Date Time Temp Pulse Resp B/P Pulse Ox O2 Delivery O2 Flow Rate FiO2 12/23/16 08:00 Room Air 12/23/16 07:35 36.8 67 18 138/75 94 Room Air 12/23/16 04:04 36.8 64 20 129/66 95 Room Air 12/23/16 04:00 Room Air 12/22/16 23:59 Room Air 12/22/16 23:56 36.9 63 19 126/72 94 Room Air 12/22/16 20:00 Room Air 12/22/16 19:05 37.0 66 19 153/76 96 Room Air 12/22/16 16:00 Room Air 12/22/16 15:14 36.6 63 19 146/74 95 Room Air 12/22/16 12:00 Room Air 12/22/16 11:37 36.3 64 20 156/74 93 Room Air General Appearance: WD/WN, no apparent distress Head: normocephalic, atraumatic Neck: trachea midline Respiratory/Chest: no respiratory distress, no accessory muscle use Abdomen: soft, + distended, + tenderness (on deep palpation ) Laboratory Results: Results Past 24 Hours Test 12/22/16 15:56 12/22/16 20:21 12/23/16 06:54 Range/Units Bedside Glucose 95 109 134 70-90 mg/dl White Blood Count 5.45 4.8-10.8 K/uL Red Blood Count 2.77 4.2-5.4 M/uL Hemoglobin 10.2 12.0-16.0 g/dL Hematocrit 29.7 37-47 % Mean Corpuscular Volume 107.2 80-100 fL Mean Corpuscular Hemoglobin 36.8 25-34 pg Mean Corpuscular Hemoglobin Concent 34.3 32-36 g/dl RDW Standard Deviation 55.2 36.4-46.3 fL RDW Coefficient of Variation 14.1 11.5-14.5 % Platelet Count 422 130-400 K/uL Mean Platelet Volume 10.6 7.4-10.4 fL Sodium Level 131 136-145 mmol/L Potassium Level 4.3 3.5-5.1 mmol/L Chloride Level 98 98-107 mmol/L Carbon Dioxide Level 26 21-32 mmol/L Anion Gap 7.0 3-11 mmol/L Blood Urea Nitrogen 12 7-18 mg/dl Creatinine 0.74 0.60-1.20 mg/dl Est Creatinine Clear Calc Drug Dose 65.5 ml/min Estimated GFR () 89.3 Estimated GFR (Non- 77.1 BUN/Creatinine Ratio 16.8 10-20 Random Glucose 112 70-99 mg/dl Calcium Level 8.7 8.5-10.1 mg/dl Phosphorus Level 2.5 2.5-4.9 mg/dl Magnesium Level 1.7 1.8-2.4 mg/dl Assessment & Plan Colonic Microperforation with Abscess - vitals stable - no leukocytosis - CT scan showing 3.5 cm gas and fluid collection consistent with abscess and fistula from anastomosis - Mild distention and abdominal pain on deep palpation Plan: GI and radiology were consulted. Abscess too small and not amenable to IR drainage. Recommended IV antibiotics (cipro/flagyl) for 5-[address] days [address] then repeat CT scan. No surgical indication at this time. Continue current management established by hospitalist. Dr. Rodriguez has seen and examined patient agrees with above.
[2016-12-23] MEDS: ONDANSETRON INJ 2 MG/ML 2 ML VIAL IV PRN (10:21)
[2016-12-23] MEDS ORDERED: MAGNESIUM SULFATE 1GM / D5W 1 GM in PREMIXED IN D5W 100 ML IV ONE (11:00)
--- NOTE | 2016-12-23 11:47 | DIAGNOSTIC IMAGING REPORT ---
CHEST ONE VIEW PORTABLE HISTORY: picc placement right COMPARISON: Chest 12/21/2016. FINDINGS: A right PICC terminates in the SVC. Left-sided dual-chamber pacemaker. The heart is stable in size. No pleural effusions. No pneumothorax. Linear densities the left lung base favor subsegmental atelectasis or scarring. This remains unchanged. There is mild diffuse interstitial thickening. IMPRESSION: 1. Right PICC terminates in the SVC. 2. Mild diffuse interstitial thickening, unchanged. This may be chronic or due to mild congestive change. Electronically signed by: Gregory Roth M.D. 12/23/2016 11:46 AM Dictated Date/Time: 12/23/2016 11:44 AM
--- NOTE | 2016-12-23 12:42 | Pharmacy Progress Note ---
Parenteral Nutrition Consult Date of Service December 23, 2016. Scope Pharmacy has been consulted to manage parenteral nutrition orders and order appropriate labs. As part of the Nutrition Support Team guidelines, pharmacy will work in conjunction with dietary when determining the patients caloric needs. Subjective The patient is a 81 year old female admitted on December 22, 2016 at 12:16 for Dizzy Spells, Syncope. Patient is to receive parenteral nutrition for prolonged clears/NPO status for bowel rest. Pertinent PMH: * Diabetes * Mild diastolic failure (grade 1) Objective Height (Feet): 5 Height (Inches): 5.00 Weight (Kilograms): 82.700 Diet: Clear Liquid Vascular Access: PICC Intake & Output (Last 72 Hr): 12/21/16 12/22/16 12/23/16 08:00 08:00 08:00 Intake Total 1822 ml 2831 ml Output Total 1150 ml 450 ml Balance 672 ml 2381 ml Additional Fluid Losses/Gains: Item Value Date Time Ciprofloxacin/ 200 ml @ 100 mls/hr 12/21/16 2100 Dextrose 400 mg/ Q12/IV 12/23/16 0818 Prmx Metronidazole 500 100 ml @ 100 mls/hr 12/21/16 2100 mg/Prmx Q8H/IV 12/23/16 0539 Laboratory Data (Last 24 Hr): Test 12/23/16 06:54 Blood Urea Nitrogen 12 mg/dl (7-18) Calcium Level 8.7 mg/dl (8.5-10.1) Carbon Dioxide Level 26 mmol/L (21-32) Chloride Level 98 mmol/L (98-107) Creatinine 0.74 mg/dl (0.60-1.20) Magnesium Level 1.7 mg/dl (1.8-2.4) Phosphorus Level 2.5 mg/dl (2.5-4.9) Potassium Level 4.3 mmol/L (3.5-5.1) Random Glucose 112 mg/dl (70-99) Sodium Level 131 mmol/L (136-145) Recent Pertinent Medications: Item Value Date Time Magnesium Sulfate 100 ml @ 100 mls/hr 12/23/16 0900 1 gm/Prmx TODAY@0900 ONCE/IV 12/23/16 1023 Ascorbic Acid 1,000 mg 12/21/16 0900 (Vitamin C Tab) BID/PO 12/23/16 0819 Calcium Carbonate 1,250 mg 12/21/16 0900 (oS-Demario 500 TAB) DAILY/PO 12/23/16 0822 Multivitamins/ 1 tab 12/21/16 0900 Minerals BID/PO 12/23/16 0821 (Multivitamin W/ Minerals Tab) Insulin Human SLIDING SCALE IF... 12/21/16 0700 Regular ACHS/SC 12/23/16 1208 (novoLIN-R) Folic Acid 400 mcg 12/21/16 0900 (Folvite Tab) QAM/PO 12/23/16 0822 Fish Oil 1 gm 12/21/16 0900 ([place]-3 BID/PO 12/23/16 0822 (Purified Fish Oil) Cap) Nutrition Assessment Please refer to the Notes section of the EMR for the most recent logging worker note. Assessment * 81 yo F admitted within 24 hours after having a colonoscopy at [facility] due to dizziness which caused her to fall. * Once admitted, pt found to have intra-abdominal abscess secondary to colonic dilation and microperforation * Surgery recommends continued antibiotics and clear liquid diet X 5-7 days for bowel rest * Due to prolonged restricted caloric intake, MD would like to start TPN * Spoke with MD regarding patient this AM * Fluid status: Pt does look slightly puffy today and is fluid positive on I/O balance; pt with mild diastolic heart failure; pt receiving ~700 mLs per day in antibiotics * Plan: Initiate TPN at minimum volume * She is a known diabetic on Januvia and Regular SS this admission * She has receive 0 units of insulin since admission * Plan: Initiate TPN at half dextrose goal and monitor insulin requirements via insulin sliding scale and add insulin to TPN if warranted tomorrow * Pt on multiple oral supplements which will be taken into consideration when writing TPN Plan For day 1 of PN administration, the following will be ordered: Macronutrients Amino acids 120 grams/day Dextrose 100 grams/day Lipids 50 grams/day Micronutrients Combined electrolytes 20 mL - contains 35 mEq Na, 20 meq K, 4.5 mEq Ca, 5 mEq Mg , 35 mEq Cl, 29.5 mEq acetate per 20 mL Sodium phosphate 21 MMol Sodium chloride 0 mEq Sodium acetate 0 mEq Potassium phosphate 0 mMol Potassium chloride 0 mEq Potassium acetate 0 mEq Magnesium sulfate 0 mEq Calcium gluconate 0 mEq Multivitamins 0 mL (patient taking oral supplementation) Trace Elements 10 mL Additional additives: patient taking folic acid and at this point I do not find it necessary to add thiamine, consider addition tomorrow of refeeding Total volume 1620 mL to be infused over 24 hrs will provide 1320 kcal/day Labs to be ordered per PN order protocol Pharmacy will follow and adjust parenteral nutrition orders on a daily basis. Thank you.
[2016-12-23] MEDS ORDERED: DEXTROSE 10% 1,000 ML IV PRN (13:24)
[2016-12-23] MEDS ORDERED: CUSTOM CENTRAL PN 1 BAG IV SCH (16:00)
[2016-12-23] MEDS: GABAPENTIN 600 MG TAB PO SCH (20:29)
[2016-12-24] VITALS: O2SAT 96
[2016-12-24] MEDS: METRONIDAZOLE / NSS 500 MG in PREMIXED NSS 100 ML IV SCH ×3 (05:17→20:20)
[2016-12-24 05:55] LABS: HEMATOCRIT 28.1 % (37-47); MEAN CELL VOLUME 104.9 fL (80-100); MEAN CORPUSCULAR HEMOGLOBIN 36.9 pg (25-34); MEAN CORPUSCULAR HGB CONC 35.2 g/dl (32-36); MEAN PLATELET VOLUME 9.9 fL (7.4-10.4); PLATELET COUNT 444 K/uL (130-400); RED BLOOD COUNT 2.68 M/uL (4.2-5.4); WHITE BLOOD COUNT 5.01 K/uL (4.8-10.8)
[2016-12-24 06:34] LABS: BUN/CREATININE RATIO 25.9 (10-20); CALCIUM 8.1 mg/dl (8.5-10.1); CREATININE 0.64 mg/dl (0.60-1.20); MAGNESIUM 1.8 mg/dl (1.8-2.4); POTASSIUM 4.2 mmol/L (3.5-5.1)
[2016-12-24 06:35] LABS: PHOSPHORUS 2.4 mg/dl (2.5-4.9)
[2016-12-24] MEDS: LEVOTHYROXINE 25 MCG TAB PO SCH (06:43)
--- NOTE | 2016-12-24 07:10 | Surgery Progress Note ---
Surgery Progress Note Date of Service December 24, 2016. Subjective No nausea, No vomiting afeb, HR nl, mild abd pain on clear liquids and tpn Objective Vital Signs: Date Time Temp Pulse Resp B/P Pulse Ox O2 Delivery O2 Flow Rate FiO2 12/24/16 00:00 96 Room Air 12/23/16 23:58 36.6 61 18 128/66 96 Room Air 12/23/16 18:13 36.4 71 16 161/75 97 Room Air 12/23/16 17:36 36.4 64 20 97 2.0 12/23/16 16:00 Room Air 12/23/16 15:45 36.4 64 20 161/78 97 Room Air 12/23/16 12:00 Room Air 12/23/16 11:42 37.2 62 18 126/68 93 12/23/16 08:00 Room Air 12/23/16 07:35 36.8 67 18 138/75 94 Room Air General Appearance: no apparent distress Respiratory/Chest: no respiratory distress Abdomen: soft (mild lower abd tenderness) Laboratory Results: Results Past 24 Hours Test 12/23/16 11:11 12/23/16 16:20 12/23/16 20:28 12/24/16 05:25 Range/Units Bedside Glucose 121 86 106 70-90 mg/dl White Blood Count 5.01 4.8-10.8 K/uL Red Blood Count 2.68 4.2-5.4 M/uL Hemoglobin 9.9 12.0-16.0 g/dL Hematocrit 28.1 37-47 % Mean Corpuscular Volume 104.9 80-100 fL Mean Corpuscular Hemoglobin 36.9 25-34 pg Mean Corpuscular Hemoglobin Concent 35.2 32-36 g/dl RDW Standard Deviation 53.1 36.4-46.3 fL RDW Coefficient of Variation 14.0 11.5-14.5 % Platelet Count 444 130-400 K/uL Mean Platelet Volume 9.9 7.4-10.4 fL Sodium Level 130 136-145 mmol/L Potassium Level 4.2 3.5-5.1 mmol/L Chloride Level 97 98-107 mmol/L Carbon Dioxide Level 27 21-32 mmol/L Anion Gap 6.0 3-11 mmol/L Blood Urea Nitrogen 17 7-18 mg/dl Creatinine 0.64 0.60-1.20 mg/dl Est Creatinine Clear Calc Drug Dose 80.5 ml/min Estimated GFR () 98.4 Estimated GFR (Non- 84.9 BUN/Creatinine Ratio 25.9 10-20 Random Glucose 132 70-99 mg/dl Calcium Level 8.1 8.5-10.1 mg/dl Phosphorus Level 2.4 2.5-4.9 mg/dl Magnesium Level 1.8 1.8-2.4 mg/dl Albumin 2.6 3.4-5.0 gm/dl Triglycerides Level 295 0-150 mg/dl Microbiology Results 12/23/16 C.difficile Toxin B Gene (PCR) - Final, Complete No C. difficile toxin B gene detected Assessment & Plan 12/24/16- pt is stable on clear liquids , tpn, and IV atbx continue same for now. no acute surgical intervention needed at this point
[2016-12-24 07:18] VITALS: BP 146/69; PULSE 68; TEMP 36.7; O2SAT 95
[2016-12-24] MEDS: ONDANSETRON INJ 2 MG/ML 2 ML VIAL IV PRN (07:31)
[2016-12-24] MEDS: CITALOPRAM 20 MG TAB PO SCH (07:37)
[2016-12-24] MEDS: ROSUVASTATIN CALCIUM 10 MG TAB PO SCH (07:38)
[2016-12-24] MEDS: ASPIRIN 81 MG ECTAB PO SCH (07:39)
[2016-12-24] MEDS: FoLIC ACID TAB 400 MCG TAB PO SCH (07:39)
[2016-12-24] MEDS: SITAGLIPTIN 100 MG TAB PO SCH (07:40)
[2016-12-24] MEDS: CEROVITE ADV FORMULA TAB PO SCH ×2 (07:45→20:21)
[2016-12-24] MEDS: OMEGA-3 (PURIFIED FISH OIL) 1 GM CAP PO SCH ×2 (07:45→20:22)
[2016-12-24] MEDS: METOPROLOL TARTRATE 25 MG TAB PO SCH ×2 (07:45→20:21)
[2016-12-24] MEDS: NIACIN 500 MG TAB IMMEDIATE RELEASE PO SCH (07:45)
[2016-12-24] MEDS: PANTOprazole SOD 40 MG TAB PO SCH (07:46)
[2016-12-24] MEDS: CALCIUM CARBONATE 1250MG TAB PO SCH (07:46)
[2016-12-24] MEDS: CARBAMAZEPINE 200 MG TAB PO SCH ×2 (07:47→20:20)
[2016-12-24] MEDS: ASCORBIC ACID 500 MG TAB PO SCH ×2 (07:48→20:24)
[2016-12-24] MEDS: INSULIN HUMAN REGULAR SC SCH ×4 (10:00→20:24)
[2016-12-24] MEDS: ENOXAPARIN 60 MG/0.6 ML SYR SQ SCH ×2 (10:02→20:23)
[2016-12-24] MEDS: ROPINIROLE HCL 1 MG TAB PO SCH ×2 (10:03→20:22)
[2016-12-24] MEDS: HYDROXYUREA 500 MG CAP PO SCH ×3 (10:05→20:26)
[2016-12-24] MEDS: CIPROFLOXACIN / D5W 400 MG in PREMIXED IN D5W 200 ML IV SCH ×2 (10:06→21:55)
[2016-12-24 13:15] VITALS: BP 136/55; PULSE 64; TEMP 36.9; O2SAT 98
[2016-12-24] MEDS ORDERED: NURSING VERBAL MED ORDER ONE (13:15)
[2016-12-24] MEDS ORDERED: LOPERAMIDE HCL 2 MG CAP PO ONE (13:30)
[2016-12-24 14:52] VITALS: BP 137/67; PULSE 62; TEMP 36.8; O2SAT 96
[2016-12-24] MEDS ORDERED: POTASSIUM PHOS 3 MMOL/1 ML INFUSION IV STA (15:12)
[2016-12-24] MEDS ORDERED: MAGNESIUM SULFATE 1GM / D5W 1 GM in PREMIXED IN D5W 100 ML IV STA (15:54)
[2016-12-24] MEDS ORDERED: CUSTOM CENTRAL PN 1 BAG IV SCH (16:00)
--- NOTE | 2016-12-24 16:03 | Progress Note ---
Subjective Date of Service: December 24, 2016. Subjective Pt evaluation today including: conversation w/ patient, conversation w/ family , physical exam, lab review, review of studies, review of inpatient medication list Saw/examined the patient in room 421 She's doing well, no problems, abdominal pain improving No nausea - tolerating clears +diarrhea x2 episodes today Problem List Medical Problems: (1) Acute urinary retention Status: Acute (2) Bladder mass Status: Acute (3) Current use of residential anticoagulation Status: Acute (4) Dehydration Status: Acute (5) Hematuria Status: Acute (6) Hematuria Status: Acute (7) History of DVT of lower extremity Status: Acute (8) Intractable nausea and vomiting Status: Acute (9) Nausea, vomiting, and diarrhea Status: Acute (10) UTI (urinary tract infection) Status: Acute (11) Weak Status: Acute Review of Systems Constitutional: No chills, No fever Respiratory: No shortness of breath Cardiac: No chest pain Abdomen: + diarrhea, No GI bleeding, No constipation, No nausea, No pain, No vomiting Medications Current Inpatient Medications Medications (Trade) Dose Ordered Sig/Tone Route Start Time Stop Time Status Last Admin Dose Admin Acetaminophen (Tylenol Tab) 650 mg Q4H PRN PO 12/21/16 04:30 01/20/17 04:29 Al Hydrox/Mg Hydrox/Simethicone (Maalox Max Susp) 15 ml Q4H PRN PO 12/21/16 04:30 01/20/17 04:29 Magnesium Hydroxide (Milk Of Magnesia Susp) 30 ml Q12H PRN PO 12/21/16 04:30 01/20/17 04:29 Zolpidem Tartrate (Ambien Tab) 5 mg HSZ PRN PO 12/21/16 04:30 01/20/17 04:29 Ondansetron HCl (Zofran Inj) 4 mg Q6H PRN IV 12/21/16 04:30 01/20/17 04:29 12/24/16 07:31 4 MG Polyethylene (Miralax Powder Packet) 17 gm DAILY PRN PO 12/21/16 04:30 01/20/17 04:29 Meclizine HCl 12.5 mg 12.5 mg Q8 PRN PO 12/21/16 04:30 01/20/17 04:29 12/21/16 08:55 12.5 MG Promethazine HCl/ Sodium Chloride (Phenergan Inj/ Nss 50ml) 50.5 ml @ 204 mls/hr Q6H PRN IV 12/21/16 04:30 01/20/17 04:29 Aspirin (Ecotrin Tab) 81 mg QAM PO 12/21/16 09:00 01/20/17 08:59 12/24/16 07:39 81 MG Carbamazepine (Tegretol Tab) 300 mg BID PO 12/21/16 09:00 01/20/17 08:59 12/24/16 07:47 300 MG Enoxaparin Sodium (Lovenox Inj) 60 mg Q12H SQ 12/21/16 08:00 01/20/17 07:59 12/24/16 10:02 60 MG Fish Oil ([place]-3 (Purified Fish Oil) Cap) 1 gm BID PO 12/21/16 09:00 01/20/17 08:59 12/24/16 07:45 1 GM Folic Acid (Folvite Tab) 400 mcg QAM PO 12/21/16 09:00 01/20/17 08:59 12/24/16 07:39 400 MCG Gabapentin (Neurontin Tab) 1,200 mg HS PO 12/21/16 21:00 01/20/17 20:59 12/23/16 20:29 1,200 MG Hydroxyurea (Hydrea Cap) 500 mg MoThSa@0900,1400,2100 PO 12/22/16 09:00 01/21/17 08:59 12/24/16 15:11 500 MG Hydroxyurea (Hydrea Cap) 500 mg SuTuWeFr@0900,2100 PO 12/21/16 09:00 01/20/17 08:59 12/23/16 20:33 500 MG Levothyroxine Sodium (Synthroid Tab) 25 mcg DAILYBB PO 12/21/16 07:30 01/20/17 07:29 12/24/16 06:43 25 MCG Metoprolol Tartrate (Lopressor Tab) 25 mg BID PO 12/21/16 09:00 01/20/17 08:59 12/24/16 07:45 25 MG Niacin (Niacin Tab) 500 mg QAM PO 12/21/16 09:00 01/20/17 08:59 12/24/16 07:45 500 MG Oxycodone/ Acetaminophen (Percocet 5-325mg Tab) 1 tab Q4H PRN PO 12/21/16 04:30 01/04/17 04:29 12/22/16 09:49 1 TAB Pantoprazole Sodium (Protonix Tab) 40 mg QAM PO 12/21/16 09:00 01/20/17 08:59 12/24/16 07:46 40 MG Ropinirole HCl (Requip Tab) 3 mg HS PO 12/21/16 21:00 01/20/17 20:59 12/23/16 20:40 3 MG Ropinirole HCl (Requip Tab) 1 mg QAM PO 12/21/16 09:00 01/20/17 08:59 12/24/16 10:03 1 MG Rosuvastatin Calcium (Crestor Tab) 5 mg QAM PO 12/21/16 09:00 01/20/17 08:59 12/24/16 07:38 5 MG Sitagliptin Phosphate (Januvia Tab) 100 mg QAM PO 12/21/16 09:00 01/20/17 08:59 12/24/16 07:40 100 MG Ascorbic Acid (Vitamin C Tab) 1,000 mg BID PO 12/21/16 09:00 01/20/17 08:59 12/24/16 07:48 1,000 MG Calcium Carbonate (oS-Demario 500 TAB) 1,250 mg DAILY PO 12/21/16 09:00 01/20/17 08:59 12/24/16 07:46 1,250 MG Citalopram Hydrobromide (celeXA TAB) 10 mg QAM PO 12/21/16 09:00 01/20/17 08:59 12/24/16 07:37 10 MG Miscellaneous Information (Order Awaiting Action) 1 ea QS N/A 12/21/16 08:00 01/20/17 07:59 Multivitamins/ Minerals (Multivitamin W/ Minerals Tab) 1 tab BID PO 12/21/16 09:00 01/20/17 08:59 12/24/16 07:45 1 TAB Insulin Human Regular (novoLIN-R) SLIDING SCALE IF C... ACHS SC 12/21/16 07:00 01/20/17 06:59 12/24/16 13:18 3 UNITS Glucose (Glucose 40% Gel) 15-30 GRAMS 15 GRAMS... UD PRN PO 12/21/16 04:45 01/20/17 04:44 Glucose (Glucose Chew Tab) 4-8 Tablets 4 Tabl... UD PRN PO 12/21/16 04:45 01/20/17 04:44 Dextrose (Dextrose 50% 50ML Syringe) 25-50ML OF 50% DW IV FOR... UD PRN IV 12/21/16 04:45 01/20/17 04:44 Glucagon (Glucagon Inj) 1 mg UD PRN SQ 12/21/16 04:45 01/20/17 04:44 Miscellaneous (Iv Fluids Completed) 1 ea PRN PRN N/A 12/21/16 06:00 12/21/17 05:59 Ioversol 111 ml 111 ml UD PRN IV 12/21/16 16:00 12/25/16 15:59 Ciprofloxacin/ Dextrose 400 mg/ Prmx 200 ml @ 100 mls/hr Q12 IV 12/21/16 21:00 12/31/16 20:59 12/24/16 10:06 100 MLS/HR Metronidazole/Prmx (Flagyl / Nss/ Premixed Nss) 100 ml @ 100 mls/hr Q8H IV 12/21/16 21:00 12/31/16 20:59 12/24/16 13:19 100 MLS/HR Miscellaneous Information (Pharmacy Tpn/ Ppn Consult Active) 1 ea UD PRN N/A 12/22/16 16:15 01/21/17 16:14 Heparin Sodium (Porcine) 5 ml 5 ml PRN PRN FLUSH 12/23/16 11:00 01/22/17 10:59 12/24/16 15:07 5 ML Nutrition (Parenteral) 0 ml @ 0 mls/hr TODAY@1600 IV 12/23/16 16:00 12/24/16 15:59 12/23/16 15:55 0 MLS/HR Dextrose 1,000 ml @ 0 mls/hr Q0M PRN IV 12/23/16 13:24 01/22/17 13:23 Nutrition (Parenteral) (Custom Central Pn) 0 ml @ 0 mls/hr TODAY@1600 IV 12/24/16 16:00 12/25/16 15:59 Loperamide HCl 2 mg 2 mg DAILY PO 12/25/16 08:00 01/24/17 07:59 Magnesium Sulfate/ Prmx (Magnesium Sulfate/Premixed D5W) 100 ml @ 100 mls/hr NOW STAT IV 12/24/16 15:54 12/24/16 16:53 Potassium Phosphate (Potassium Phosphate Replacement) 9 mmol NOW STAT IV 12/24/16 15:12 12/24/16 15:13 UNV Objective Vital Signs Date Time Temp Pulse Resp B/P Pulse Ox O2 Delivery O2 Flow Rate FiO2 12/24/16 14:52 36.8 62 16 137/67 96 Room Air 12/24/16 13:15 36.9 64 14 136/55 98 Room Air 12/24/16 08:00 Room Air 12/24/16 07:18 36.7 68 16 146/69 95 Room Air 12/24/16 00:00 96 Room Air 12/23/16 23:58 36.6 61 18 128/66 96 Room Air 12/23/16 18:13 36.4 71 16 161/75 97 Room Air 12/23/16 17:36 36.4 64 20 97 2.0 12/23/16 16:00 Room Air Physical Exam General Appearance: no apparent distress Respiratory/Chest: lungs clear, normal breath sounds, no respiratory distress, no accessory muscle use Cardiovascular: regular rate, rhythm, no edema, no murmur Abdomen: normal bowel sounds, soft, + tenderness (mildly tender) Extremities: normal inspection, no pedal edema Neurologic/Psychiatric: no motor/sensory deficits, alert, normal mood/affect Laboratory Results Last 24 Hours Test 12/23/16 16:20 12/23/16 20:28 12/24/16 05:25 12/24/16 07:37 Bedside Glucose 86 mg/dl 106 mg/dl 136 mg/dl White Blood Count 5.01 K/uL Red Blood Count 2.68 M/uL Hemoglobin 9.9 g/dL Hematocrit 28.1 % Mean Corpuscular Volume 104.9 fL Mean Corpuscular Hemoglobin 36.9 pg Mean Corpuscular Hemoglobin Concent 35.2 g/dl RDW Standard Deviation 53.1 fL RDW Coefficient of Variation 14.0 % Platelet Count 444 K/uL Mean Platelet Volume 9.9 fL Sodium Level 130 mmol/L Potassium Level 4.2 mmol/L Chloride Level 97 mmol/L Carbon Dioxide Level 27 mmol/L Anion Gap 6.0 mmol/L Blood Urea Nitrogen 17 mg/dl Creatinine 0.64 mg/dl Est Creatinine Clear Calc Drug Dose 80.5 ml/min Estimated GFR () 98.4 Estimated GFR (Non- 84.9 BUN/Creatinine Ratio 25.9 Random Glucose 132 mg/dl Calcium Level 8.1 mg/dl Phosphorus Level 2.4 mg/dl Magnesium Level 1.8 mg/dl Albumin 2.6 gm/dl Triglycerides Level 295 mg/dl Test 12/24/16 11:25 Bedside Glucose 177 mg/dl Assessment and Plan This is a 81 year old female with a PMH of DM2, HTN, hypothyroidism, DVT on Lovenox, HLD, restless leg syndrome with a recent GI procedure - colonic dilation; with a microperforation which required clipping - was discharged on - presented to [facility] due to syncope Intra-Abdominal Abscess Secondary to Colonic Dilation & Microperforation 12/24 plan: continue abx. for another 3-4 days TPN and clears repeat CT abdomen to check abscess 12/23 appreciate GI and radiology input seems like this abscess is not amenable to IR drainage for now, we will manage with IV abx. (Cipro + Flagyl) clears and TPN for 5-[address] abdomen after 5-7 days 12/22 CT abdomen was performed yesterday gas/fluid collection in the mid-abdomen; 3.5cm, likely abscess noted patient started on Cipro + Flagyl appreciate general surgery input - recommendation made for transfer to [facility] will await further word from GI and radiology regarding this 12/21 on 12/16, had a colonoscopic dilation complicated by a microperforation; which was clipped she was sent home, states that she's been having abdominal pain since then will check an abdominal/pelvic CT with IV contrast Syncope and Fall - resolved 12/22 states that her symptoms have resolved She is able to ambulate with her walker fine work-up with no findings, likely related to dehydration vs. vasovagal syncope 12/21 patient states she was in the bathroom when this occurred uses walker at baseline; she states she was using it does not completely recall the fall; but does know that she hit her head Head CT, cervical CT - no acute findings carotid U/S - negative echo - with no acute findings; some RV overload has worked with PT/OT - PT recommendation is home, OT recommends inpatient rehab will monitor the patient overnight, give some IVFs, check orthostatics more PT/OT tomorrow (12/22), then decide the disposition of the patient Hx. of DVT of lower extremity will continue Lovenox 60mg q12 DM2 cont. Januvia and a sliding scale sugars are stable, monitor with TPN and clears HTN blood pressure controlled, continue current medications Hypothyroidism TSH wnl continue Synthroid DVT ppx Lovenox DNR
[2016-12-24] MEDS ORDERED: POTASSIUM PHOSPHATE INJ 9 MMOL in SODIUM CHLORIDE 0.9% 250ML 250 ML IV ONE (16:30)
[2016-12-24] MEDS: GABAPENTIN 600 MG TAB PO SCH (20:23)
[2016-12-24] MEDS: OXYCODONE/ACETAMINOPHEN 5-325 TAB PO PRN (20:35)
[2016-12-24 20:39] VITALS: BP 143/72; PULSE 64
[2016-12-24 23:49] VITALS: BP 115/51; PULSE 63; TEMP 37; O2SAT 95
[2016-12-25] VITALS: O2SAT 96
[2016-12-25] MEDS: METRONIDAZOLE / NSS 500 MG in PREMIXED NSS 100 ML IV SCH ×3 (04:58→20:05)
[2016-12-25] MEDS: LEVOTHYROXINE 25 MCG TAB PO SCH (06:18)
--- NOTE | 2016-12-25 06:34 | Surgery Progress Note ---
Surgery Progress Note Date of Service December 25, 2016. Subjective afeb, vss mild abd pain, doesn't walk much Objective Vital Signs: Date Time Temp Pulse Resp B/P Pulse Ox O2 Delivery O2 Flow Rate FiO2 12/25/16 00:00 96 Room Air 12/24/16 23:49 37.0 63 20 115/51 95 Room Air 12/24/16 20:39 64 143/72 12/24/16 16:00 Room Air 12/24/16 14:52 36.8 62 16 137/67 96 Room Air 12/24/16 13:15 36.9 64 14 136/55 98 Room Air 12/24/16 08:00 Room Air 12/24/16 07:18 36.7 68 16 146/69 95 Room Air General Appearance: no apparent distress Respiratory/Chest: no respiratory distress Abdomen: soft (mild tenderness) Laboratory Results: Results Past 24 Hours Test 12/24/16 07:37 12/24/16 11:25 12/24/16 16:30 12/24/16 20:17 Range/Units Bedside Glucose 136 177 100 140 70-90 mg/dl Test 12/25/16 05:21 Range/Units Assessment & Plan 12/25/16- overall stable on IV atbx, tpn, clear liquids should walk in hallway 12/24/16- pt is stable on clear liquids , tpn, and IV atbx continue same for now. no acute surgical intervention needed at this point 12/24/16- pt is stable on clear liquids , tpn, and IV atbx continue same for now. no acute surgical intervention needed at this point
[2016-12-25 06:55] LABS: BUN/CREATININE RATIO 38.9 (10-20); CREATININE 0.59 mg/dl (0.60-1.20); POTASSIUM 4.2 mmol/L (3.5-5.1)
[2016-12-25 06:56] LABS: PHOSPHORUS 2.8 mg/dl (2.5-4.9)
[2016-12-25 07:25] VITALS: BP 145/64; PULSE 72; TEMP 36.7; O2SAT 98
[2016-12-25] MEDS: CITALOPRAM 20 MG TAB PO SCH (08:17)
[2016-12-25] MEDS: ROSUVASTATIN CALCIUM 10 MG TAB PO SCH (08:18)
[2016-12-25] MEDS: LOPERAMIDE HCL 2 MG CAP PO SCH (08:19)
[2016-12-25] MEDS: FoLIC ACID TAB 400 MCG TAB PO SCH (08:19)
[2016-12-25] MEDS: ASPIRIN 81 MG ECTAB PO SCH (08:19)
[2016-12-25] MEDS: SITAGLIPTIN 100 MG TAB PO SCH (08:20)
[2016-12-25] MEDS: NIACIN 500 MG TAB IMMEDIATE RELEASE PO SCH (08:20)
[2016-12-25] MEDS: CEROVITE ADV FORMULA TAB PO SCH ×2 (08:20→20:33)
[2016-12-25] MEDS: METOPROLOL TARTRATE 25 MG TAB PO SCH ×2 (08:20→20:33)
[2016-12-25] MEDS: OMEGA-3 (PURIFIED FISH OIL) 1 GM CAP PO SCH ×2 (08:20→20:43)
[2016-12-25] MEDS: CALCIUM CARBONATE 1250MG TAB PO SCH (08:21)
[2016-12-25] MEDS: ROPINIROLE HCL 1 MG TAB PO SCH ×2 (08:21→20:34)
[2016-12-25] MEDS: PANTOprazole SOD 40 MG TAB PO SCH (08:21)
[2016-12-25] MEDS: ASCORBIC ACID 500 MG TAB PO SCH ×2 (08:22→20:35)
[2016-12-25] MEDS: CARBAMAZEPINE 200 MG TAB PO SCH ×2 (08:22→20:36)
[2016-12-25] MEDS: INSULIN HUMAN REGULAR SC SCH ×4 (08:29→20:39)
[2016-12-25] MEDS: ENOXAPARIN 60 MG/0.6 ML SYR SQ SCH ×2 (08:30→20:32)
[2016-12-25] MEDS: CIPROFLOXACIN / D5W 400 MG in PREMIXED IN D5W 200 ML IV SCH ×2 (08:34→21:23)
[2016-12-25] MEDS: HYDROXYUREA 500 MG CAP PO SCH ×2 (09:01→20:39)
--- NOTE | 2016-12-25 09:31 | DIAGNOSTIC IMAGING REPORT ---
[facility]UB CLINICAL HISTORY: Abdominal pain. Recent colonoscopy. COMPARISON STUDY: CT of the abdomen and pelvis December 21, 2016. FINDINGS: Left subclavian pacer leads are noted as well as surgical clips within the abdomen and pelvis. An endoscopic clip projects over the left lower quadrant. IVC filter is in place. There is no evidence for a bowel obstruction. IMPRESSION: No evidence for a bowel obstruction. Electronically signed by: Chalo Posadas M.D. 12/25/2016 9:29 AM Dictated Date/Time: 12/25/2016 9:28 AM
--- NOTE | 2016-12-25 13:34 | Progress Note ---
Subjective Date of Service: December 25, 2016. 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 Status: Acute (4) Dehydration Status: Acute (5) Hematuria Status: Acute (6) Hematuria Status: Acute (7) History of DVT of lower extremity Status: Acute (8) Intractable nausea and vomiting Status: Acute (9) Nausea, vomiting, and diarrhea Status: Acute (10) UTI (urinary tract infection) Status: Acute (11) Weak Status: Acute Review of Systems Constitutional: No chills, No fever Respiratory: No shortness of breath Cardiac: No chest pain Abdomen: + diarrhea, + pain, No GI bleeding, No constipation, No nausea, No vomiting Medications Current Inpatient Medications Medications (Trade) Dose Ordered Sig/Tone Route Start Time Stop Time Status Last Admin Dose Admin Acetaminophen (Tylenol Tab) 650 mg Q4H PRN PO 12/21/16 04:30 01/20/17 04:29 Al Hydrox/Mg Hydrox/Simethicone (Maalox Max Susp) 15 ml Q4H PRN PO 12/21/16 04:30 01/20/17 04:29 Magnesium Hydroxide (Milk Of Magnesia Susp) 30 ml Q12H PRN PO 12/21/16 04:30 01/20/17 04:29 Zolpidem Tartrate (Ambien Tab) 5 mg HSZ PRN PO 12/21/16 04:30 01/20/17 04:29 Ondansetron HCl (Zofran Inj) 4 mg Q6H PRN IV 12/21/16 04:30 01/20/17 04:29 12/24/16 07:31 4 MG Polyethylene (Miralax Powder Packet) 17 gm DAILY PRN PO 12/21/16 04:30 01/20/17 04:29 Meclizine HCl 12.5 mg 12.5 mg Q8 PRN PO 12/21/16 04:30 01/20/17 04:29 12/21/16 08:55 12.5 MG Promethazine HCl/ Sodium Chloride (Phenergan Inj/ Nss 50ml) 50.5 ml @ 204 mls/hr Q6H PRN IV 12/21/16 04:30 01/20/17 04:29 Aspirin (Ecotrin Tab) 81 mg QAM PO 12/21/16 09:00 01/20/17 08:59 12/25/16 08:19 81 MG Carbamazepine (Tegretol Tab) 300 mg BID PO 12/21/16 09:00 01/20/17 08:59 12/25/16 08:22 300 MG Enoxaparin Sodium (Lovenox Inj) 60 mg Q12H SQ 12/21/16 08:00 01/20/17 07:59 12/25/16 08:30 60 MG Fish Oil ([place]-3 (Purified Fish Oil) Cap) 1 gm BID PO 12/21/16 09:00 01/20/17 08:59 12/25/16 08:20 1 GM Folic Acid (Folvite Tab) 400 mcg QAM PO 12/21/16 09:00 01/20/17 08:59 12/25/16 08:19 400 MCG Gabapentin (Neurontin Tab) 1,200 mg HS PO 12/21/16 21:00 01/20/17 20:59 12/24/16 20:23 1,200 MG Hydroxyurea (Hydrea Cap) 500 mg MoThSa@0900,1400,2100 PO 12/22/16 09:00 01/21/17 08:59 12/24/16 20:26 500 MG Hydroxyurea (Hydrea Cap) 500 mg SuTuWeFr@0900,2100 PO 12/21/16 09:00 01/20/17 08:59 12/25/16 09:01 500 MG Levothyroxine Sodium (Synthroid Tab) 25 mcg DAILYBB PO 12/21/16 07:30 01/20/17 07:29 12/25/16 06:18 25 MCG Metoprolol Tartrate (Lopressor Tab) 25 mg BID PO 12/21/16 09:00 01/20/17 08:59 12/25/16 08:20 25 MG Niacin (Niacin Tab) 500 mg QAM PO 12/21/16 09:00 01/20/17 08:59 12/25/16 08:20 500 MG Oxycodone/ Acetaminophen (Percocet 5-325mg Tab) 1 tab Q4H PRN PO 12/21/16 04:30 01/04/17 04:29 12/24/16 20:35 1 TAB Pantoprazole Sodium (Protonix Tab) 40 mg QAM PO 12/21/16 09:00 01/20/17 08:59 12/25/16 08:21 40 MG Ropinirole HCl (Requip Tab) 3 mg HS PO 12/21/16 21:00 01/20/17 20:59 12/24/16 20:22 3 MG Ropinirole HCl (Requip Tab) 1 mg QAM PO 12/21/16 09:00 01/20/17 08:59 12/25/16 08:21 1 MG Rosuvastatin Calcium (Crestor Tab) 5 mg QAM PO 12/21/16 09:00 01/20/17 08:59 12/25/16 08:18 5 MG Sitagliptin Phosphate (Januvia Tab) 100 mg QAM PO 12/21/16 09:00 01/20/17 08:59 12/25/16 08:20 100 MG Ascorbic Acid (Vitamin C Tab) 1,000 mg BID PO 12/21/16 09:00 01/20/17 08:59 12/25/16 08:22 1,000 MG Calcium Carbonate (oS-Demario 500 TAB) 1,250 mg DAILY PO 12/21/16 09:00 01/20/17 08:59 12/25/16 08:21 1,250 MG Citalopram Hydrobromide (celeXA TAB) 10 mg QAM PO 12/21/16 09:00 01/20/17 08:59 12/25/16 08:17 10 MG Miscellaneous Information (Order Awaiting Action) 1 ea QS N/A 12/21/16 08:00 01/20/17 07:59 Multivitamins/ Minerals (Multivitamin W/ Minerals Tab) 1 tab BID PO 12/21/16 09:00 01/20/17 08:59 12/25/16 08:20 1 TAB Insulin Human Regular (novoLIN-R) SLIDING SCALE IF C... ACHS SC 12/21/16 07:00 01/20/17 06:59 12/25/16 12:43 4 UNITS Glucose (Glucose 40% Gel) 15-30 GRAMS 15 GRAMS... UD PRN PO 12/21/16 04:45 01/20/17 04:44 Glucose (Glucose Chew Tab) 4-8 Tablets 4 Tabl... UD PRN PO 12/21/16 04:45 01/20/17 04:44 Dextrose (Dextrose 50% 50ML Syringe) 25-50ML OF 50% DW IV FOR... UD PRN IV 12/21/16 04:45 01/20/17 04:44 Glucagon (Glucagon Inj) 1 mg UD PRN SQ 12/21/16 04:45 01/20/17 04:44 Miscellaneous (Iv Fluids Completed) 1 ea PRN PRN N/A 12/21/16 06:00 12/21/17 05:59 Ioversol 111 ml 111 ml UD PRN IV 12/21/16 16:00 12/25/16 15:59 Ciprofloxacin/ Dextrose 400 mg/ Prmx 200 ml @ 100 mls/hr Q12 IV 12/21/16 21:00 12/31/16 20:59 12/25/16 08:34 100 MLS/HR Metronidazole/Prmx (Flagyl / Nss/ Premixed Nss) 100 ml @ 100 mls/hr Q8H IV 12/21/16 21:00 12/31/16 20:59 12/25/16 12:44 100 MLS/HR Miscellaneous Information (Pharmacy Tpn/ Ppn Consult Active) 1 ea UD PRN N/A 12/22/16 16:15 01/21/17 16:14 Heparin Sodium (Porcine) 5 ml 5 ml PRN PRN FLUSH 12/23/16 11:00 01/22/17 10:59 12/24/16 15:07 5 ML Dextrose 1,000 ml @ 0 mls/hr Q0M PRN IV 12/23/16 13:24 01/22/17 13:23 Nutrition (Parenteral) (Custom Central Pn) 0 ml @ 0 mls/hr TODAY@1600 IV 12/24/16 16:00 12/25/16 15:59 12/24/16 16:35 60.55 MLS/HR Loperamide HCl 2 mg 2 mg DAILY PO 12/25/16 08:00 01/24/17 07:59 12/25/16 08:19 2 MG Nutrition (Parenteral) (Custom Central Pn) 0 ml @ 0 mls/hr TODAY@1600 IV 12/25/16 16:00 12/26/16 15:59 Objective Vital Signs Date Time Temp Pulse Resp B/P Pulse Ox O2 Delivery O2 Flow Rate FiO2 12/25/16 08:00 Room Air 12/25/16 07:25 36.7 72 20 145/64 98 12/25/16 00:00 96 Room Air 12/24/16 23:49 37.0 63 20 115/51 95 Room Air 12/24/16 20:39 64 143/72 12/24/16 16:00 Room Air 12/24/16 14:52 36.8 62 16 137/67 96 Room Air Physical Exam General Appearance: no apparent distress Respiratory/Chest: lungs clear, normal breath sounds, no respiratory distress, no accessory muscle use Cardiovascular: regular rate, rhythm, no murmur Abdomen: soft, + distended, + tenderness (mildly tender) Extremities: + pertinent finding (+1 pitting edema b/l LE) Laboratory Results Last 24 Hours Test 12/24/16 16:30 12/24/16 20:17 12/25/16 05:21 12/25/16 07:45 Bedside Glucose 100 mg/dl 140 mg/dl 158 mg/dl Sodium Level 130 mmol/L Potassium Level 4.2 mmol/L Chloride Level 97 mmol/L Carbon Dioxide Level 24 mmol/L Anion Gap 9.0 mmol/L Blood Urea Nitrogen 23 mg/dl Creatinine 0.59 mg/dl Est Creatinine Clear Calc Drug Dose 88.1 ml/min Estimated GFR () 101.0 Estimated GFR (Non- 87.2 BUN/Creatinine Ratio 38.9 Random Glucose 141 mg/dl Calcium Level 8.0 mg/dl Phosphorus Level 2.8 mg/dl Magnesium Level 2.0 mg/dl Test 12/25/16 11:24 Bedside Glucose 141 mg/dl Assessment and Plan This is a 81 year old female with a PMH of DM2, HTN, hypothyroidism, DVT on Lovenox, HLD, restless leg syndrome with a recent GI procedure - colonic dilation; with a microperforation which required clipping - was discharged on - presented to [facility] due to syncope Intra-Abdominal Abscess Secondary to Colonic Dilation & Microperforation 12/25 TPN + clears + abx. (day #4) repeat CT ~ December 2712/24 plan: continue abx. for another 3-4 days TPN and clears repeat CT abdomen to check abscess 12/23 appreciate GI and radiology input seems like this abscess is not amenable to IR drainage for now, we will manage with IV abx. (Cipro + Flagyl) clears and TPN for 5-[address] abdomen after 5-7 days 12/22 CT abdomen was performed yesterday gas/fluid collection in the mid-abdomen; 3.5cm, likely abscess noted patient started on Cipro + Flagyl appreciate general surgery input - recommendation made for transfer to [facility] will await further word from GI and radiology regarding this 12/21 on 12/16, had a colonoscopic dilation complicated by a microperforation; which was clipped she was sent home, states that she's been having abdominal pain since then will check an abdominal/pelvic CT with IV contrast Syncope and Fall - resolved 12/22 states that her symptoms have resolved She is able to ambulate with her walker fine work-up with no findings, likely related to dehydration vs. vasovagal syncope 12/21 patient states she was in the bathroom when this occurred uses walker at baseline; she states she was using it does not completely recall the fall; but does know that she hit her head Head CT, cervical CT - no acute findings carotid U/S - negative echo - with no acute findings; some RV overload has worked with PT/OT - PT recommendation is home, OT recommends inpatient rehab will monitor the patient overnight, give some IVFs, check orthostatics more PT/OT tomorrow (12/22), then decide the disposition of the patient Hx. of DVT of lower extremity will continue Lovenox 60mg q12 DM2 cont. Januvia and a sliding scale sugars are stable, monitor with TPN and clears HTN blood pressure controlled, continue current medications Hypothyroidism TSH wnl continue Synthroid DVT ppx Lovenox DNR
[2016-12-25 14:45] VITALS: BP 152/66; PULSE 66; TEMP 36.8; O2SAT 99
[2016-12-25] MEDS ORDERED: CUSTOM CENTRAL PN 1 BAG IV SCH (16:00)
[2016-12-25] MEDS ORDERED: FUROSEMIDE INJ 20 MG in SYRINGE 0 ML IV ONE (16:30)
[2016-12-25] MEDS: GABAPENTIN 600 MG TAB PO SCH (20:34)
[2016-12-25] MEDS: OXYCODONE/ACETAMINOPHEN 5-325 TAB PO PRN (20:41)
[2016-12-26 00:37] VITALS: BP 116/60; PULSE 69; TEMP 36.8; O2SAT 95
[2016-12-26] MEDS: METRONIDAZOLE / NSS 500 MG in PREMIXED NSS 100 ML IV SCH ×3 (04:42→21:17)
--- NOTE | 2016-12-26 06:02 | Surgery Progress Note ---
Surgery Progress Note Date of Service December 26, 2016. Subjective resting comfortably Objective Vital Signs: Date Time Temp Pulse Resp B/P Pulse Ox O2 Delivery O2 Flow Rate FiO2 12/26/16 00:37 36.8 69 20 116/60 95 Room Air 12/25/16 23:59 Room Air 12/25/16 16:00 Room Air 12/25/16 14:45 36.8 66 20 152/66 99 12/25/16 08:00 Room Air 12/25/16 07:25 36.7 72 20 145/64 98 Laboratory Results: Results Past 24 Hours Test 12/25/16 07:45 12/25/16 11:24 12/25/16 16:36 12/25/16 20:30 Range/Units Bedside Glucose 158 141 95 151 70-90 mg/dl Test 12/26/16 04:44 Range/Units Assessment & Plan 12/26/16- appears to be stable from surgical standpoint 12/25/16- overall stable on IV atbx, tpn, clear liquids should walk in hallway 12/24/16- pt is stable on clear liquids , tpn, and IV atbx continue same for now. no acute surgical intervention needed at this point 12/25/16- overall stable on IV atbx, tpn, clear liquids should walk in hallway 12/24/16- pt is stable on clear liquids , tpn, and IV atbx continue same for now. no acute surgical intervention needed at this point
[2016-12-26] MEDS: LEVOTHYROXINE 25 MCG TAB PO SCH (06:20)
[2016-12-26 06:44] LABS: BUN/CREATININE RATIO 41.4 (10-20); CALCIUM 8.1 mg/dl (8.5-10.1); CREATININE 0.62 mg/dl (0.60-1.20); MAGNESIUM 1.9 mg/dl (1.8-2.4); POTASSIUM 3.8 mmol/L (3.5-5.1)
[2016-12-26 07:27] VITALS: BP 146/76; PULSE 67; TEMP 37; O2SAT 97
[2016-12-26] MEDS: CITALOPRAM 20 MG TAB PO SCH (08:14)
[2016-12-26] MEDS: CEROVITE ADV FORMULA TAB PO SCH ×2 (08:15→21:21)
[2016-12-26] MEDS: ROSUVASTATIN CALCIUM 10 MG TAB PO SCH (08:15)
[2016-12-26] MEDS: FoLIC ACID TAB 400 MCG TAB PO SCH (08:16)
[2016-12-26] MEDS: SITAGLIPTIN 100 MG TAB PO SCH (08:16)
[2016-12-26] MEDS: LOPERAMIDE HCL 2 MG CAP PO SCH (08:16)
[2016-12-26] MEDS: ASPIRIN 81 MG ECTAB PO SCH (08:16)
[2016-12-26] MEDS: METOPROLOL TARTRATE 25 MG TAB PO SCH ×2 (08:17→21:21)
[2016-12-26] MEDS: ROPINIROLE HCL 1 MG TAB PO SCH ×2 (08:18→21:21)
[2016-12-26] MEDS: PANTOprazole SOD 40 MG TAB PO SCH (08:18)
[2016-12-26] MEDS: CALCIUM CARBONATE 1250MG TAB PO SCH (08:18)
[2016-12-26] MEDS: NIACIN 500 MG TAB IMMEDIATE RELEASE PO SCH (08:18)
[2016-12-26] MEDS: OMEGA-3 (PURIFIED FISH OIL) 1 GM CAP PO SCH ×2 (08:18→21:20)
[2016-12-26] MEDS: ASCORBIC ACID 500 MG TAB PO SCH ×2 (08:19→21:19)
[2016-12-26] MEDS: CARBAMAZEPINE 200 MG TAB PO SCH ×2 (08:19→21:18)
[2016-12-26] MEDS: HYDROXYUREA 500 MG CAP PO SCH ×3 (08:23→21:16)
[2016-12-26] MEDS: ENOXAPARIN 60 MG/0.6 ML SYR SQ SCH ×2 (08:25→21:17)
[2016-12-26] MEDS: INSULIN HUMAN REGULAR SC SCH ×4 (08:25→21:00)
[2016-12-26] MEDS: CIPROFLOXACIN / D5W 400 MG in PREMIXED IN D5W 200 ML IV SCH ×2 (08:28→21:17)
[2016-12-26 11:00] VITALS: BP 130/73; PULSE 69; TEMP 36.9; O2SAT 98
--- NOTE | 2016-12-26 15:10 | Progress Note ---
Subjective Date of Service: December 26, 2016. Subjective Pt evaluation today including: conversation w/ patient, physical exam, lab review, review of studies, review of inpatient medication list Saw/examined the patient in room 421 She had some rectal bleeding earlier today no abdominal pain, no nausea/vomiting; intermittent diarrhea Problem List Medical Problems: (1) Acute urinary retention Status: Acute (2) Bladder mass Status: Acute (3) Current use of prison anticoagulation Status: Acute (4) Dehydration Status: Acute (5) Hematuria Status: Acute (6) Hematuria Status: Acute (7) History of DVT of lower extremity Status: Acute (8) Intractable nausea and vomiting Status: Acute (9) Nausea, vomiting, and diarrhea Status: Acute (10) UTI (urinary tract infection) Status: Acute (11) Weak Status: Acute Review of Systems Constitutional: No chills, No fever, No weakness Respiratory: No shortness of breath Cardiac: No chest pain Abdomen: + GI bleeding, + diarrhea, No constipation, No nausea, No pain, No vomiting Medications Current Inpatient Medications Medications (Trade) Dose Ordered Sig/Tone Route Start Time Stop Time Status Last Admin Dose Admin Acetaminophen (Tylenol Tab) 650 mg Q4H PRN PO 12/21/16 04:30 01/20/17 04:29 Al Hydrox/Mg Hydrox/Simethicone (Maalox Max Susp) 15 ml Q4H PRN PO 12/21/16 04:30 01/20/17 04:29 Magnesium Hydroxide (Milk Of Magnesia Susp) 30 ml Q12H PRN PO 12/21/16 04:30 01/20/17 04:29 Zolpidem Tartrate (Ambien Tab) 5 mg HSZ PRN PO 12/21/16 04:30 01/20/17 04:29 Ondansetron HCl (Zofran Inj) 4 mg Q6H PRN IV 12/21/16 04:30 01/20/17 04:29 12/24/16 07:31 4 MG Polyethylene (Miralax Powder Packet) 17 gm DAILY PRN PO 12/21/16 04:30 01/20/17 04:29 Meclizine HCl 12.5 mg 12.5 mg Q8 PRN PO 12/21/16 04:30 01/20/17 04:29 12/21/16 08:55 12.5 MG Promethazine HCl/ Sodium Chloride (Phenergan Inj/ Nss 50ml) 50.5 ml @ 204 mls/hr Q6H PRN IV 12/21/16 04:30 01/20/17 04:29 Aspirin (Ecotrin Tab) 81 mg QAM PO 12/21/16 09:00 01/20/17 08:59 12/26/16 08:16 81 MG Carbamazepine (Tegretol Tab) 300 mg BID PO 12/21/16 09:00 01/20/17 08:59 12/26/16 08:19 300 MG Enoxaparin Sodium (Lovenox Inj) 60 mg Q12H SQ 12/21/16 08:00 01/20/17 07:59 12/26/16 08:25 60 MG Fish Oil ([place]-3 (Purified Fish Oil) Cap) 1 gm BID PO 12/21/16 09:00 01/20/17 08:59 12/26/16 08:18 1 GM Folic Acid (Folvite Tab) 400 mcg QAM PO 12/21/16 09:00 01/20/17 08:59 12/26/16 08:16 400 MCG Gabapentin (Neurontin Tab) 1,200 mg HS PO 12/21/16 21:00 01/20/17 20:59 12/25/16 20:34 1,200 MG Hydroxyurea (Hydrea Cap) 500 mg MoThSa@0900,1400,2100 PO 12/22/16 09:00 01/21/17 08:59 12/26/16 14:10 500 MG Hydroxyurea (Hydrea Cap) 500 mg SuTuWeFr@0900,2100 PO 12/21/16 09:00 01/20/17 08:59 12/25/16 20:39 500 MG Levothyroxine Sodium (Synthroid Tab) 25 mcg DAILYBB PO 12/21/16 07:30 01/20/17 07:29 12/26/16 06:20 25 MCG Metoprolol Tartrate (Lopressor Tab) 25 mg BID PO 12/21/16 09:00 01/20/17 08:59 12/26/16 08:17 25 MG Niacin (Niacin Tab) 500 mg QAM PO 12/21/16 09:00 01/20/17 08:59 12/26/16 08:18 500 MG Oxycodone/ Acetaminophen (Percocet 5-325mg Tab) 1 tab Q4H PRN PO 12/21/16 04:30 01/04/17 04:29 12/25/16 20:41 1 TAB Pantoprazole Sodium (Protonix Tab) 40 mg QAM PO 12/21/16 09:00 01/20/17 08:59 12/26/16 08:18 40 MG Ropinirole HCl (Requip Tab) 3 mg HS PO 12/21/16 21:00 01/20/17 20:59 12/25/16 20:34 3 MG Ropinirole HCl (Requip Tab) 1 mg QAM PO 12/21/16 09:00 01/20/17 08:59 12/26/16 08:18 1 MG Rosuvastatin Calcium (Crestor Tab) 5 mg QAM PO 12/21/16 09:00 01/20/17 08:59 12/26/16 08:15 5 MG Sitagliptin Phosphate (Januvia Tab) 100 mg QAM PO 12/21/16 09:00 01/20/17 08:59 12/26/16 08:16 100 MG Ascorbic Acid (Vitamin C Tab) 1,000 mg BID PO 12/21/16 09:00 01/20/17 08:59 12/26/16 08:19 1,000 MG Calcium Carbonate (oS-Demario 500 TAB) 1,250 mg DAILY PO 12/21/16 09:00 01/20/17 08:59 12/26/16 08:18 1,250 MG Citalopram Hydrobromide (celeXA TAB) 10 mg QAM PO 12/21/16 09:00 01/20/17 08:59 12/26/16 08:14 10 MG Miscellaneous Information (Order Awaiting Action) 1 ea QS N/A 12/21/16 08:00 01/20/17 07:59 Multivitamins/ Minerals (Multivitamin W/ Minerals Tab) 1 tab BID PO 12/21/16 09:00 01/20/17 08:59 12/26/16 08:15 1 TAB Insulin Human Regular (novoLIN-R) SLIDING SCALE IF C... ACHS SC 12/21/16 07:00 01/20/17 06:59 12/26/16 12:40 4 UNITS Glucose (Glucose 40% Gel) 15-30 GRAMS 15 GRAMS... UD PRN PO 12/21/16 04:45 01/20/17 04:44 Glucose (Glucose Chew Tab) 4-8 Tablets 4 Tabl... UD PRN PO 12/21/16 04:45 01/20/17 04:44 Dextrose (Dextrose 50% 50ML Syringe) 25-50ML OF 50% DW IV FOR... UD PRN IV 12/21/16 04:45 01/20/17 04:44 Glucagon (Glucagon Inj) 1 mg UD PRN SQ 12/21/16 04:45 01/20/17 04:44 Miscellaneous 1 ea 1 ea PRN PRN N/A 12/21/16 06:00 12/21/17 05:59 Ciprofloxacin/ Dextrose 400 mg/ Prmx 200 ml @ 100 mls/hr Q12 IV 12/21/16 21:00 12/31/16 20:59 12/26/16 08:28 100 MLS/HR Metronidazole/Prmx (Flagyl / Nss/ Premixed Nss) 100 ml @ 100 mls/hr Q8H IV 12/21/16 21:00 12/31/16 20:59 12/26/16 12:40 100 MLS/HR Miscellaneous Information (Pharmacy Tpn/ Ppn Consult Active) 1 ea UD PRN N/A 12/22/16 16:15 01/21/17 16:14 Heparin Sodium (Porcine) 5 ml 5 ml PRN PRN FLUSH 12/23/16 11:00 01/22/17 10:59 12/26/16 14:06 5 ML Dextrose (D10w) 1,000 ml @ 0 mls/hr Q0M PRN IV 12/23/16 13:24 01/22/17 13:23 Loperamide HCl 2 mg 2 mg DAILY PO 12/25/16 08:00 01/24/17 07:59 12/26/16 08:16 2 MG Nutrition (Parenteral) 0 ml @ 0 mls/hr TODAY@1600 IV 12/25/16 16:00 12/26/16 15:59 12/25/16 16:48 0 MLS/HR Nutrition (Parenteral) (Custom Central Pn) 0 ml @ 0 mls/hr TODAY@1600 IV 12/26/16 16:00 12/27/16 15:59 Objective Vital Signs Date Time Temp Pulse Resp B/P Pulse Ox O2 Delivery O2 Flow Rate FiO2 12/26/16 11:00 36.9 69 17 130/73 98 Room Air 12/26/16 08:00 Room Air 12/26/16 07:27 37.0 67 17 146/76 97 Room Air 12/26/16 00:37 36.8 69 20 116/60 95 Room Air 12/25/16 23:59 Room Air 12/25/16 16:00 Room Air Physical Exam General Appearance: no apparent distress Respiratory/Chest: lungs clear, normal breath sounds, no respiratory distress, no accessory muscle use Cardiovascular: regular rate, rhythm, no edema, no murmur Abdomen: normal bowel sounds, non tender, soft Laboratory Results Last 24 Hours Test 12/25/16 16:36 12/25/16 20:30 12/26/16 05:30 12/26/16 07:27 Bedside Glucose 95 mg/dl 151 mg/dl 170 mg/dl Sodium Level 132 mmol/L Potassium Level 3.8 mmol/L Chloride Level 99 mmol/L Carbon Dioxide Level 26 mmol/L Anion Gap 7.0 mmol/L Blood Urea Nitrogen 26 mg/dl Creatinine 0.62 mg/dl Est Creatinine Clear Calc Drug Dose 83.8 ml/min Estimated GFR () 99.4 Estimated GFR (Non- 85.8 BUN/Creatinine Ratio 41.4 Random Glucose 142 mg/dl Calcium Level 8.1 mg/dl Phosphorus Level 3.0 mg/dl Magnesium Level 1.9 mg/dl Test 12/26/16 11:54 Bedside Glucose 129 mg/dl Assessment and Plan This is a 81 year old female with a PMH of DM2, HTN, hypothyroidism, DVT on Lovenox, HLD, restless leg syndrome with a recent GI procedure - colonic dilation; with a microperforation which required clipping - was discharged on - presented to [facility] due to syncope Rectal Bleeding H/H stable rectal bleeding noted this morning by nursing staff patient states there was no abdominal pain possibly related to the abdominal abscess? GI consulted currently, plan is to check CT in 1-2 days, possibly may need to check it today continue abx. recent colonoscopic colonic dilation at [place] Intra-Abdominal Abscess Secondary to Colonic Dilation & Microperforation 12/25 TPN + clears + abx. (day #4) repeat CT ~ December 2712/24 plan: continue abx. for another 3-4 days TPN and clears repeat CT abdomen to check abscess 12/23 appreciate GI and radiology input seems like this abscess is not amenable to IR drainage for now, we will manage with IV abx. (Cipro + Flagyl) clears and TPN for 5-[address] abdomen after 5-7 days 12/22 CT abdomen was performed yesterday gas/fluid collection in the mid-abdomen; 3.5cm, likely abscess noted patient started on Cipro + Flagyl appreciate general surgery input - recommendation made for transfer to [facility] will await further word from GI and radiology regarding this 12/21 on 12/16, had a colonoscopic dilation complicated by a microperforation; which was clipped she was sent home, states that she's been having abdominal pain since then will check an abdominal/pelvic CT with IV contrast Syncope and Fall - resolved 12/22 states that her symptoms have resolved She is able to ambulate with her walker fine work-up with no findings, likely related to dehydration vs. vasovagal syncope 12/21 patient states she was in the bathroom when this occurred uses walker at baseline; she states she was using it does not completely recall the fall; but does know that she hit her head Head CT, cervical CT - no acute findings carotid U/S - negative echo - with no acute findings; some RV overload has worked with PT/OT - PT recommendation is home, OT recommends inpatient rehab will monitor the patient overnight, give some IVFs, check orthostatics more PT/OT tomorrow (12/22), then decide the disposition of the patient Hx. of DVT of lower extremity will continue Lovenox 60mg q12 DM2 cont. Januvia and a sliding scale sugars are stable, monitor with TPN and clears HTN blood pressure controlled, continue current medications Hypothyroidism TSH wnl continue Synthroid DVT ppx Lovenox DNR
[2016-12-26] MEDS ORDERED: CUSTOM CENTRAL PN 1 BAG IV SCH (16:00)
--- NOTE | 2016-12-26 17:13 | GASTROINTESTINAL CONSULTATION ---
DATE OF CONSULTATION: 12/26/2016 I was asked by Dr. Ryder to see this patient because of a bout of rectal bleeding. HISTORY OF PRESENT ILLNESS: The patient had red rectal bleeding one episode. She had no pain. She has had occasional outlet rectal bleeding. She has had none since daughter is at the bedside. She has had no abdominal pain. She is looking forward to getting her CAT scan tomorrow to see if the abscess has resolved. There has been no CBC on this patient since the with a hemoglobin of 9.9. IMPRESSION AND PLAN: At this point, with no further bleeding, I think this is just a benign bout of either outlet bleeding or possible bleeding from her stricture. No indication for endoscopy and in fact given her history of perforation, I do not recommend any invasive testing. I would continue with your plan and I would consider repeating her CBC to follow her hemoglobin. KRYSTIN
[2016-12-26 17:27] VITALS: BP 161/79; PULSE 70; TEMP 36.7; O2SAT 100
[2016-12-26] MEDS: OXYCODONE/ACETAMINOPHEN 5-325 TAB PO PRN (21:15)
[2016-12-26] MEDS: GABAPENTIN 600 MG TAB PO SCH (21:19)
[2016-12-27] VITALS: BP 131/68; PULSE 71; TEMP 37.2; O2SAT 96
[2016-12-27] MEDS: METRONIDAZOLE / NSS 500 MG in PREMIXED NSS 100 ML IV SCH ×2 (05:05→12:55)
[2016-12-27] MEDS: LEVOTHYROXINE 25 MCG TAB PO SCH (06:16)
[2016-12-27 07:22] VITALS: BP 158/74; PULSE 70; TEMP 37.1; O2SAT 96
[2016-12-27] MEDS: ENOXAPARIN 60 MG/0.6 ML SYR SQ SCH (07:35)
[2016-12-27] MEDS: LOPERAMIDE HCL 2 MG CAP PO SCH (07:36)
[2016-12-27] MEDS: ROPINIROLE HCL 1 MG TAB PO SCH ×2 (07:36→21:29)
[2016-12-27] MEDS: NIACIN 500 MG TAB IMMEDIATE RELEASE PO SCH (07:36)
[2016-12-27] MEDS: CEROVITE ADV FORMULA TAB PO SCH ×2 (07:36→21:28)
[2016-12-27] MEDS: CITALOPRAM 20 MG TAB PO SCH (07:36)
[2016-12-27] MEDS: FoLIC ACID TAB 400 MCG TAB PO SCH (07:36)
[2016-12-27] MEDS: ASPIRIN 81 MG ECTAB PO SCH (07:36)
[2016-12-27] MEDS: CALCIUM CARBONATE 1250MG TAB PO SCH (07:36)
[2016-12-27] MEDS: ROSUVASTATIN CALCIUM 10 MG TAB PO SCH (07:36)
[2016-12-27] MEDS: METOPROLOL TARTRATE 25 MG TAB PO SCH ×2 (07:37→21:29)
[2016-12-27] MEDS: OMEGA-3 (PURIFIED FISH OIL) 1 GM CAP PO SCH ×2 (07:42→20:35)
[2016-12-27] MEDS: PANTOprazole SOD 40 MG TAB PO SCH (07:42)
[2016-12-27] MEDS: CARBAMAZEPINE 200 MG TAB PO SCH ×2 (07:42→20:32)
[2016-12-27] MEDS: SITAGLIPTIN 100 MG TAB PO SCH (07:42)
[2016-12-27] MEDS: ASCORBIC ACID 500 MG TAB PO SCH ×2 (07:43→20:34)
[2016-12-27] MEDS: CIPROFLOXACIN / D5W 400 MG in PREMIXED IN D5W 200 ML IV SCH (07:43)
[2016-12-27 08:00] VITALS: O2SAT 96
[2016-12-27] MEDS: HYDROXYUREA 500 MG CAP PO SCH ×2 (08:53→20:40)
[2016-12-27] MEDS: INSULIN HUMAN REGULAR SC SCH ×4 (08:53→21:27)
--- NOTE | 2016-12-27 10:45 | Surgery Progress Note ---
Surgery Progress Note Date of Service December 27, 2016. Subjective + bowel movement, + diet (tolerating clear liquids), + feeling well, + flatus, + pain controlled, No chest pain, No nausea, No vomiting Objective Vital Signs: Date Time Temp Pulse Resp B/P Pulse Ox O2 Delivery O2 Flow Rate FiO2 12/27/16 08:00 96 Room Air 12/27/16 07:22 37.1 70 16 158/74 96 Room Air 12/27/16 00:00 37.2 71 20 131/68 96 Room Air 12/27/16 00:00 Room Air 12/26/16 17:27 36.7 70 17 161/79 100 Room Air 12/26/16 16:45 Room Air 12/26/16 11:00 36.9 69 17 130/73 98 Room Air General Appearance: WD/WN, no apparent distress Head: normocephalic, atraumatic Neck: trachea midline Respiratory/Chest: no respiratory distress, no accessory muscle use Abdomen: non tender, non distended, soft Laboratory Results: Results Past 24 Hours Test 12/26/16 11:54 12/26/16 16:39 12/26/16 20:23 12/27/16 00:45 Range/Units Bedside Glucose 129 120 121 169 70-90 mg/dl Test 12/27/16 06:18 12/27/16 07:42 Range/Units Bedside Glucose 169 157 70-90 mg/dl Assessment & Plan Colonic Microperforation with Abscess - vitals stable - CT scan on 12/22/2015 showing 3.5 cm gas and fluid collection consistent with abscess and 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 Will continue to follow Dr. Rodriguez has seen and examined patient agrees with above.
--- NOTE | 2016-12-27 14:59 | Progress Note ---
Internal Med Progress Note Date of Service: December 27, 2016. Provider Documentation: SUBJECTIVE: Patient is doing well. Increased pedal edema bilaterally with weight gain while on IV TPN. No abdominal pain, fever, chills, nausea, vomiting. No rectal bleeding any more. Tolerating clear liquid well and wants to have regular food On IV TPN OBJECTIVE: Vital Signs-as noted below Exam: General Appearance: no apparent distress, AAOX3 Respiratory/Chest: lungs clear, normal breath sounds, no respiratory distress, no accessory muscle use Cardiovascular: regular rate, rhythm, no edema, no murmur Abdomen: normal bowel sounds, non tender, soft Ext: Worsening edema bilaterally extending upto below knees Lab data as noted below. ASSESSMENT & PLAN: This is a 81 year old female with a PMH of DM2, HTN, hypothyroidism, DVT on Lovenox, HLD, restless leg syndrome with a recent GI procedure - colonic dilation; with a microperforation which required clipping - was discharged on - presented to [facility] due to syncope. EPISODE OF RECTAL BLEEDING : On 12/26/16, no more since than -H & H stable. -No more intervention per GI INTRA ABDOMINAL ABSCESS: Secondary to Colonic Dilation & Microperforation CT abdomen was performed on 12/26/16 - gas/fluid collection in the mid-abdomen; 3.5cm, likely abscess noted -Clear liquids -IV TPN (Day 5)-- > decrease rate as fluid overloaded. Restart Lasix 40 mg daily today -IV Ciprofloxacin /Flagyl (Day 5)--> Change to PO as fluid overloaded today -Repeat CT scan today Syncope and Fall -Resolved Likely secondary to above -Work up- Head CT, cervical CT - no acute findings; Carotid U/S - negative; Echo - with no acute findings; some RV overload -PT/OT - PT recommendation is home, OT recommends inpatient rehab Hx. of DVT of lower extremity -Was not on anticoagulation prior to admission. Will change lovenox from BID to daily dosing. DM2 -Continue with Januvia and a sliding scale -sugars are stable, monitor with TPN and clears HTN -Blood pressure controlled, continue current medications Hypothyroidism TSH wnl -Continue Synthroid DVT ppx Lovenox SQ DNR DISPOSITION Medical mx in progress Vital Signs: Date Time Temp Pulse Resp B/P Pulse Ox O2 Delivery O2 Flow Rate FiO2 12/27/16 08:00 96 Room Air 12/27/16 07:22 37.1 70 16 158/74 96 Room Air 12/27/16 00:00 37.2 71 20 131/68 96 Room Air 12/27/16 00:00 Room Air 12/26/16 17:27 36.7 70 17 161/79 100 Room Air 12/26/16 16:45 Room Air Lab Results: Results Past 24 Hours Test 12/26/16 16:39 12/26/16 20:23 12/27/16 00:45 12/27/16 06:18 Range/Units Bedside Glucose 120 121 169 169 70-90 mg/dl Test 12/27/16 07:42 12/27/16 11:44 Range/Units Bedside Glucose 157 161 70-90 mg/dl
[2016-12-27] MEDS ORDERED: OPTIRAY 320 IV PRN (15:00)
[2016-12-27 15:09] VITALS: BP 159/73; PULSE 70; O2SAT 100
[2016-12-27] MEDS ORDERED: CUSTOM CENTRAL PN 1 BAG IV SCH (16:00)
--- NOTE | 2016-12-27 16:22 | DIAGNOSTIC IMAGING REPORT ---
CT OF THE ABDOMEN AND PELVIS WITH CONTRAST CLINICAL HISTORY: Abscess follow up COMPARISON STUDY: CT of the abdomen and pelvis December 21, 2016. TECHNIQUE: Following IV administration of 93 mL of Optiray-320, axial images of the abdomen and pelvis were obtained from the lung bases to the proximal femurs. Images were reviewed in the axial, sagittal, and coronal planes. IV contrast was administered without complication. CT DOSE: 1181.58 mGy.cm FINDINGS: Slight nodularity of the liver surface with enlargement of the lateral segment is again noted. A 2.2 cm right adrenal nodule is unchanged and likely reflects an adenoma. There are multiple water attenuation renal lesions consistent with cysts. There are numerous subcentimeter renal lesions which are too small to characterize. The spleen and pancreas are unremarkable. A left adrenal nodule is unchanged. This is likely benign. An IVC filter is in place. There are findings consistent with a subtotal colectomy. A gas and fluid containing collection adjacent to the anastomosis within the mesentery shown on axial image 57 of 93 has minimally decreased in size since exam of December 21, 2016. This collection now measures 3.1 x 2.2 cm. It previously measured 3.2 x 2.6 cm. There is mild adjacent infiltration which is similar to prior study. There are sigmoid diverticulosis. Right lateral bladder wall thickening is unchanged. No suspicious osseous lesions are present. There are no additional fluid collections. IMPRESSION: 1. Persistent suspected abscess adjacent to the ileocolonic anastomosis. Minimal decrease in size of this abscess since CT of December 21, 2016 status post subtotal colectomy. Apparent fistulous tract extending from the collection to the anastomosis. 2. Otherwise, unchanged appearance of the abdomen and pelvis, as described above. Electronically signed by: Chalo Posadas M.D. 12/27/2016 4:20 PM Dictated Date/Time: 12/27/2016 4:07 PM
[2016-12-27] MEDS: FUROSEMIDE 40 MG TAB PO SCH (16:31)
[2016-12-27 19:32] LABS: HEMATOCRIT 29.6 % (37-47); MEAN CORPUSCULAR HEMOGLOBIN 35.5 pg (25-34); MEAN CORPUSCULAR HGB CONC 33.8 g/dl (32-36); MEAN PLATELET VOLUME 9.6 fL (7.4-10.4); PLATELET COUNT 507 K/uL (130-400); RED BLOOD COUNT 2.82 M/uL (4.2-5.4); WHITE BLOOD COUNT 6.69 K/uL (4.8-10.8)
[2016-12-27 19:43] LABS: INR 1.2 (0.9-1.1); PROTHROMBIN TIME (PATIENT) 13.3 SECONDS (9.0-12.0)
[2016-12-27 19:52] LABS: CREATININE 0.75 mg/dl (0.60-1.20)
[2016-12-27 20:29] VITALS: BP 154/75; PULSE 77; O2SAT 98
[2016-12-27] MEDS: GABAPENTIN 600 MG TAB PO SCH (20:33)
[2016-12-27] MEDS: OXYCODONE/ACETAMINOPHEN 5-325 TAB PO PRN (21:32)
[2016-12-28 00:08] VITALS: BP 129/70; PULSE 69; TEMP 37.1; O2SAT 94
[2016-12-28 05:49] LABS: HEMATOCRIT 28.3 % (37-47); MEAN CELL VOLUME 105.6 fL (80-100); MEAN CORPUSCULAR HEMOGLOBIN 36.2 pg (25-34); MEAN CORPUSCULAR HGB CONC 34.3 g/dl (32-36); MEAN PLATELET VOLUME 9.5 fL (7.4-10.4); PLATELET COUNT 494 K/uL (130-400); RED BLOOD COUNT 2.68 M/uL (4.2-5.4); WHITE BLOOD COUNT 6.77 K/uL (4.8-10.8)
[2016-12-28] MEDS: LEVOTHYROXINE 25 MCG TAB PO SCH (05:56)
[2016-12-28 06:28] LABS: BUN/CREATININE RATIO 43.2 (10-20); CALCIUM 8.2 mg/dl (8.5-10.1); CREATININE 0.65 mg/dl (0.60-1.20); MAGNESIUM 2.1 mg/dl (1.8-2.4); POTASSIUM 4.1 mmol/L (3.5-5.1)
[2016-12-28 06:36] LABS: PHOSPHORUS 3.8 mg/dl (2.5-4.9)
[2016-12-28 07:50] VITALS: BP 136/69; PULSE 75; TEMP 36.4; O2SAT 95
[2016-12-28] MEDS: CARBAMAZEPINE 200 MG TAB PO SCH ×2 (07:55→19:59)
[2016-12-28] MEDS: ROPINIROLE HCL 1 MG TAB PO SCH ×2 (07:55→19:56)
[2016-12-28] MEDS: FUROSEMIDE 40 MG TAB PO SCH (07:55)
[2016-12-28] MEDS: NIACIN 500 MG TAB IMMEDIATE RELEASE PO SCH (07:55)
[2016-12-28] MEDS: CEROVITE ADV FORMULA TAB PO SCH ×2 (07:55→19:57)
[2016-12-28] MEDS: SITAGLIPTIN 100 MG TAB PO SCH (07:58)
[2016-12-28] MEDS: OMEGA-3 (PURIFIED FISH OIL) 1 GM CAP PO SCH ×2 (07:58→19:55)
[2016-12-28] MEDS: ASCORBIC ACID 500 MG TAB PO SCH ×2 (07:58→19:58)
[2016-12-28] MEDS: METOPROLOL TARTRATE 25 MG TAB PO SCH ×2 (07:58→19:55)
[2016-12-28] MEDS: ROSUVASTATIN CALCIUM 10 MG TAB PO SCH (07:58)
[2016-12-28] MEDS: PANTOprazole SOD 40 MG TAB PO SCH (07:58)
[2016-12-28 08:00] VITALS: O2SAT 95
[2016-12-28] MEDS ORDERED: ENOXAPARIN 40 MG/0.4 ML SYR SQ SCH ×2 (08:00→20:00)
[2016-12-28] MEDS: FoLIC ACID TAB 400 MCG TAB PO SCH (08:38)
[2016-12-28] MEDS: ASPIRIN 81 MG ECTAB PO SCH (08:38)
[2016-12-28] MEDS: CALCIUM CARBONATE 1250MG TAB PO SCH (08:38)
[2016-12-28] MEDS: LOPERAMIDE HCL 2 MG CAP PO SCH (08:38)
[2016-12-28] MEDS: CITALOPRAM 20 MG TAB PO SCH (08:38)
[2016-12-28] MEDS: INSULIN HUMAN REGULAR SC SCH ×4 (08:53→20:53)
[2016-12-28] MEDS: HYDROXYUREA 500 MG CAP PO SCH ×2 (08:54→20:56)
[2016-12-28] MEDS: OXYCODONE/ACETAMINOPHEN 5-325 TAB PO PRN ×2 (12:35→19:53)
--- NOTE | 2016-12-28 13:20 | Surgery Progress Note ---
Surgery Progress Note Date of Service December 28, 2016. Subjective + feeling well pt is doing fine, no abdominal pain, no nausea no vomiting, she tolerated clear diet, repeat CT scan is reviewed, Objective Vital Signs: Date Time Temp Pulse Resp B/P Pulse Ox O2 Delivery O2 Flow Rate FiO2 12/28/16 08:00 95 Room Air 12/28/16 07:50 36.4 75 18 136/69 95 Room Air 12/28/16 00:08 37.1 69 20 129/70 94 Room Air 12/28/16 00:00 Room Air 12/27/16 20:29 77 154/75 98 Room Air 12/27/16 16:14 Room Air 12/27/16 15:09 70 16 159/73 100 Room Air General Appearance: WD/WN Head: normocephalic Neck: supple, no JVD Respiratory/Chest: chest non-tender, lungs clear Cardiovascular: regular rate, rhythm, no edema, no gallop Abdomen: normal bowel sounds, non tender, non distended, soft Extremities: normal range of motion, non-tender, normal inspection Laboratory Results: Results Past 24 Hours Test 12/27/16 16:45 12/27/16 19:13 12/27/16 20:40 12/28/16 05:25 Range/Units Bedside Glucose 111 149 70-90 mg/dl White Blood Count 6.69 6.77 4.8-10.8 K/uL Red Blood Count 2.82 2.68 4.2-5.4 M/uL Hemoglobin 10.0 9.7 12.0-16.0 g/dL Hematocrit 29.6 28.3 37-47 % Mean Corpuscular Volume 105.0 105.6 80-100 fL Mean Corpuscular Hemoglobin 35.5 36.2 25-34 pg Mean Corpuscular Hemoglobin Concent 33.8 34.3 32-36 g/dl RDW Standard Deviation 54.5 55.6 36.4-46.3 fL RDW Coefficient of Variation 14.4 14.6 11.5-14.5 % Platelet Count 507 494 130-400 K/uL Mean Platelet Volume 9.6 9.5 7.4-10.4 fL Prothrombin Time 13.3 9.0-12.0 SECONDS Prothromb Time International Ratio 1.2 0.9-1.1 Creatinine 0.75 0.65 0.60-1.20 mg/dl Est Creatinine Clear Calc Drug Dose 69.7 80.4 ml/min Estimated GFR () 87.9 97.9 Estimated GFR (Non- 75.8 84.4 Sodium Level 133 136-145 mmol/L Potassium Level 4.1 3.5-5.1 mmol/L Chloride Level 100 98-107 mmol/L Carbon Dioxide Level 25 21-32 mmol/L Anion Gap 8.0 3-11 mmol/L Blood Urea Nitrogen 28 7-18 mg/dl BUN/Creatinine Ratio 43.2 10-20 Random Glucose 128 70-99 mg/dl Calcium Level 8.2 8.5-10.1 mg/dl Phosphorus Level 3.8 2.5-4.9 mg/dl Magnesium Level 2.1 1.8-2.4 mg/dl Test 12/28/16 05:56 12/28/16 07:31 12/28/16 11:22 Range/Units Bedside Glucose 140 166 145 70-90 mg/dl Assessment & Plan IMP : F/P microperforation of colon S/P colonoscopy CT Scan(12/27/2016)- smaller abscess, pt has no symptoms continue treatment, will F/U
[2016-12-28 14:40] VITALS: BP 116/65; PULSE 62; TEMP 36.9; O2SAT 97
--- NOTE | 2016-12-28 15:56 | Progress Note ---
Internal Med Progress Note Date of Service: December 28, 2016. Provider Documentation: SUBJECTIVE : Patient is doing well. Pedal edema bilaterally with weight gain while on IV TPN. No abdominal pain, fever, chills, nausea, vomiting. No rectal bleeding any more. Tolerating clear liquid well and wants to have regular food On IV TPN OBJECTIVE: Vital Signs-as noted below Exam: General Appearance: no apparent distress, AAOX3 Respiratory/Chest: lungs clear, normal breath sounds, no respiratory distress, no accessory muscle use Cardiovascular: regular rate, rhythm, no edema, no murmur Abdomen: normal bowel sounds, non tender, soft Ext: Worsening edema bilaterally extending upto below knees Lab data as noted below. ASSESSMENT & PLAN: This is a 81 year old female with a PMH of DM2, HTN, hypothyroidism, DVT on Lovenox, HLD, restless leg syndrome with a recent GI procedure - colonic dilation; with a microperforation which required clipping - was discharged on - presented to [facility] due to syncope. INTRA ABDOMINAL ABSCESS: S/P Colonic Dilation via colonoscopy & Microperforation CT abdomen was performed on 12/26/16 - gas/fluid collection in the mid-abdomen; 3.5cm, likely abscess noted -Clear liquids- tolerating it well -IV TPN (Day 6)-- > decreased rate as fluid overloaded. Restarted Lasix 40 mg daily yesterday -S/P IV Ciprofloxacin /Flagyl (Day 5)--> Change to PO on 12/27 (Day 6) PLAN: Per repeat CT scan on 12/27/16- persistent suspected abscess adjacent to ileocolonic anastomosis. Minimal decrease in size of abscess since CT of s/p subtotal colectomy. Apparent fistulous tract extending from the collection to the anastomosis. Discussed with GI [facility]. Would try to avoid invasive procedure if possible especially as has no symptoms and signs of infection. Will wait for their recommendations. Discussed with patient and daughter by bedside. S/P EPISODE OF RECTAL BLEEDING : On 12/26/16, no more since than -H & H stable. -No more intervention per GI SYNCOPE -Resolved Likely secondary to above -Work up- Head CT, cervical CT - no acute findings; Carotid U/S - negative; Echo - with no acute findings; some RV overload -PT/OT - PT recommendation is home, OT recommends inpatient rehab Hx. of DVT / PE of lower extremity -Due to prior hx of DVT/PE, patient has been on lovenox SQ BID x 4 years. Will continue with Lovenox SQ 60 mg q 12 hours as prior to home. DM2 -Continue with Januvia and a sliding scale -sugars are stable, monitor with TPN and clears HTN -Blood pressure controlled, continue current medications Hypothyroidism TSH wnl -Continue Synthroid DVT ppx Lovenox SQ BID DNR DISPOSITION Medical mx in progress Awaiting inputs from GI Plan is for [facility] once medically stable. Discussed with daughter by bedside. Vital Signs: Date Time Temp Pulse Resp B/P Pulse Ox O2 Delivery O2 Flow Rate FiO2 12/28/16 14:40 36.9 62 18 116/65 97 Room Air 12/28/16 08:00 95 Room Air 12/28/16 07:50 36.4 75 18 136/69 95 Room Air 12/28/16 00:08 37.1 69 20 129/70 94 Room Air 12/28/16 00:00 Room Air 12/27/16 20:29 77 154/75 98 Room Air 12/27/16 16:14 Room Air Lab Results: Results Past 24 Hours Test 12/27/16 16:45 12/27/16 19:13 12/27/16 20:40 12/28/16 05:25 Range/Units Bedside Glucose 111 149 70-90 mg/dl White Blood Count 6.69 6.77 4.8-10.8 K/uL Red Blood Count 2.82 2.68 4.2-5.4 M/uL Hemoglobin 10.0 9.7 12.0-16.0 g/dL Hematocrit 29.6 28.3 37-47 % Mean Corpuscular Volume 105.0 105.6 80-100 fL Mean Corpuscular Hemoglobin 35.5 36.2 25-34 pg Mean Corpuscular Hemoglobin Concent 33.8 34.3 32-36 g/dl RDW Standard Deviation 54.5 55.6 36.4-46.3 fL RDW Coefficient of Variation 14.4 14.6 11.5-14.5 % Platelet Count 507 494 130-400 K/uL Mean Platelet Volume 9.6 9.5 7.4-10.4 fL Prothrombin Time 13.3 9.0-12.0 SECONDS Prothromb Time International Ratio 1.2 0.9-1.1 Creatinine 0.75 0.65 0.60-1.20 mg/dl Est Creatinine Clear Calc Drug Dose 69.7 80.4 ml/min Estimated GFR () 87.9 97.9 Estimated GFR (Non- 75.8 84.4 Sodium Level 133 136-145 mmol/L Potassium Level 4.1 3.5-5.1 mmol/L Chloride Level 100 98-107 mmol/L Carbon Dioxide Level 25 21-32 mmol/L Anion Gap 8.0 3-11 mmol/L Blood Urea Nitrogen 28 7-18 mg/dl BUN/Creatinine Ratio 43.2 10-20 Random Glucose 128 70-99 mg/dl Calcium Level 8.2 8.5-10.1 mg/dl Phosphorus Level 3.8 2.5-4.9 mg/dl Magnesium Level 2.1 1.8-2.4 mg/dl Test 12/28/16 05:56 12/28/16 07:31 12/28/16 11:22 Range/Units Bedside Glucose 140 166 145 70-90 mg/dl
[2016-12-28] MEDS ORDERED: CUSTOM CENTRAL PN 1 BAG IV SCH (16:00)
[2016-12-28] MEDS: GABAPENTIN 600 MG TAB PO SCH (19:54)
[2016-12-28] MEDS: ENOXAPARIN 60 MG/0.6 ML SYR SQ SCH (19:55)
[2016-12-29] MEDS: LEVOTHYROXINE 25 MCG TAB PO SCH (06:34)
[2016-12-29 07:57] VITALS: BP 158/71; PULSE 71; TEMP 36.6; O2SAT 96
--- NOTE | 2016-12-29 08:46 | Surgery Progress Note ---
Surgery Progress Note Date of Service Dec 29, 2016. Subjective + feeling well pt is doing fine, no abdominal pain, no fever, pt tolerated clear diet, Objective Vital Signs: Date Time Temp Pulse Resp B/P (MAP) Pulse Ox O2 Delivery O2 Flow Rate FiO2 12/29/16 07:57 36.6 71 18 158/71 (100) 96 Room Air 12/29/16 07:48 Room Air 12/29/16 00:00 Room Air 12/28/16 16:00 Room Air 12/28/16 14:40 36.9 62 18 116/65 (82) 97 Room Air General Appearance: WD/WN Head: normocephalic Neck: supple, no JVD Respiratory/Chest: chest non-tender, lungs clear Cardiovascular: regular rate, rhythm, no edema, no gallop Abdomen: normal bowel sounds, non tender, non distended, soft Extremities: normal range of motion, non-tender, normal inspection Laboratory Results: Results Past 24 Hours Test 12/28/16 11:22 12/28/16 18:35 12/28/16 20:21 12/29/16 00:34 Range/Units Bedside Glucose 145 208 139 134 70-90 mg/dl Test 12/29/16 07:44 Range/Units Bedside Glucose 154 70-90 mg/dl Assessment & Plan IMP : F/P microperforation of colon S/P colonoscopy CT Scan(12/27/2016)- smaller abscess, pt has no symptoms continue treatment, will F/U 12/29/2016 soft diet may D/C TPN will F/U IMP : F/P microperforation of colon S/P colonoscopy CT Scan(12/27/2016)- smaller abscess, pt has no symptoms continue treatment, will F/U
[2016-12-29] MEDS: FoLIC ACID TAB 400 MCG TAB PO SCH (09:22)
[2016-12-29] MEDS: CITALOPRAM 20 MG TAB PO SCH (09:22)
[2016-12-29] MEDS: ASPIRIN 81 MG ECTAB PO SCH (09:22)
[2016-12-29] MEDS: OMEGA-3 (PURIFIED FISH OIL) 1 GM CAP PO SCH ×2 (09:23→20:45)
[2016-12-29] MEDS: ROPINIROLE HCL 1 MG TAB PO SCH ×2 (09:23→20:55)
[2016-12-29] MEDS: ROSUVASTATIN CALCIUM 10 MG TAB PO SCH (09:23)
[2016-12-29] MEDS: CALCIUM CARBONATE 1250MG TAB PO SCH (09:24)
[2016-12-29] MEDS: CEROVITE ADV FORMULA TAB PO SCH ×2 (09:24→20:53)
[2016-12-29] MEDS: PANTOprazole SOD 40 MG TAB PO SCH (09:24)
[2016-12-29] MEDS: FUROSEMIDE 40 MG TAB PO SCH (09:24)
[2016-12-29] MEDS: METOPROLOL TARTRATE 25 MG TAB PO SCH ×2 (09:24→20:53)
[2016-12-29] MEDS: NIACIN 500 MG TAB IMMEDIATE RELEASE PO SCH (09:25)
[2016-12-29] MEDS: SITAGLIPTIN 100 MG TAB PO SCH (09:25)
[2016-12-29] MEDS: CARBAMAZEPINE 200 MG TAB PO SCH ×2 (09:26→20:55)
[2016-12-29] MEDS: ASCORBIC ACID 500 MG TAB PO SCH ×2 (09:26→20:54)
[2016-12-29] MEDS: LOPERAMIDE HCL 2 MG CAP PO SCH (09:27)
[2016-12-29] MEDS: ENOXAPARIN 60 MG/0.6 ML SYR SQ SCH ×2 (09:27→20:47)
[2016-12-29] MEDS: INSULIN HUMAN REGULAR SC SCH ×4 (09:34→20:51)
[2016-12-29] MEDS: HYDROXYUREA 500 MG CAP PO SCH ×3 (09:34→20:47)
[2016-12-29] MEDS: OXYCODONE/ACETAMINOPHEN 5-325 TAB PO PRN ×2 (12:33→21:45)
[2016-12-29 14:36] VITALS: BP 126/71; PULSE 70; TEMP 37.3; O2SAT 98
--- NOTE | 2016-12-29 14:50 | Progress Note ---
Internal Med Progress Note Date of Service: Dec 29, 2016. Provider Documentation: SUBJECTIVE : Patient is doing well. Pedal edema bilaterally with weight gain while on IV TPN. No abdominal pain, fever, chills, nausea, vomiting. No rectal bleeding any more. Tolerated regular food today Off IV TPN OBJECTIVE: Vital Signs-as noted below Exam: General Appearance: no apparent distress, AAOX3 Respiratory/Chest: lungs clear, normal breath sounds, no respiratory distress, no accessory muscle use Cardiovascular: regular rate, rhythm, no edema, no murmur Abdomen: normal bowel sounds, non tender, soft Ext: Worsening edema bilaterally extending upto below knees- Right > left ( which is chronic) Lab data as noted below. ASSESSMENT & PLAN: This is a 81 year old female with a PMH of DM2, HTN, hypothyroidism, DVT on Lovenox, HLD, restless leg syndrome with a recent GI procedure - colonic dilation; with a microperforation which required clipping - was discharged on - presented to [facility] due to syncope. INTRA ABDOMINAL ABSCESS/FISTULA: S/P Colonic Dilation via colonoscopy & Microperforation CT abdomen was performed on 12/26/16 - gas/fluid collection in the mid-abdomen; 3.5cm, likely abscess noted -Advanced to regular diet from clear liquids- tolerating, though minimal intake -IV TPN (Day 7)-- > OK to discontinue it -S/P IV Ciprofloxacin /Flagyl (Day 5)--> Changed to PO on 12/27 (Day 7) PLAN: Per repeat CT scan on 12/27/16- persistent suspected abscess adjacent to ileocolonic anastomosis. Minimal decrease in size of abscess since CT of s/p subtotal colectomy. Apparent fistulous tract extending from the collection to the anastomosis. Discussed with GI who [facility] Would try to avoid invasive procedure if possible especially as has no symptoms and signs of infection. Will wait for their recommendations. Discussed with patient and daughter by bedside. Awaiting GI inputs. S/P EPISODE OF RECTAL BLEEDING : On 12/26/16, no more since than -H & H stable. -No more intervention per GI SYNCOPE -Resolved Likely secondary to above -Work up- Head CT, cervical CT - no acute findings; Carotid U/S - negative; Echo - with no acute findings; some RV overload -PT/OT - PT recommendation is home, OT recommends inpatient rehab Hx. of DVT / PE of lower extremity -Due to prior hx of DVT/PE, patient has been on lovenox SQ BID x 4 years. Will continue with Lovenox SQ 60 mg q 12 hours as prior to home. DM2 -Continue with Januvia and a sliding scale -sugars are stable, monitor with TPN and clears HTN -Blood pressure controlled, continue current medications HYPOTHYROIDISM TSH wnl -Continue Synthroid DVT PROPHYLAXIS Lovenox SQ BID DNR DISPOSITION Medical mx in progress Awaiting inputs from GI Plan is for [facility] once medically stable. Discussed with daughter by bedside. Vital Signs: Date Time Temp Pulse Resp B/P (MAP) Pulse Ox O2 Delivery O2 Flow Rate FiO2 12/29/16 14:36 37.3 70 18 126/71 (89) 98 Room Air 12/29/16 07:57 36.6 71 18 158/71 (100) 96 Room Air 12/29/16 07:48 Room Air 12/29/16 00:00 Room Air 12/28/16 16:00 Room Air Lab Results: Results Past 24 Hours Test 12/28/16 18:35 12/28/16 20:21 12/29/16 00:34 12/29/16 07:44 Range/Units Bedside Glucose 208 139 134 154 70-90 mg/dl Test 12/29/16 11:29 Range/Units Bedside Glucose 142 70-90 mg/dl
[2016-12-29] MEDS: BOOST BREEZE NUTRITION DRINK 1 BOX PO SCH (20:43)
[2016-12-29 20:45] VITALS: BP 137/68; PULSE 73
[2016-12-29] MEDS: GABAPENTIN 600 MG TAB PO SCH (20:46)
[2016-12-29] MEDS: METRONIDAZOLE 500 MG TAB PO SCH (21:05)
[2016-12-29] MEDS: CIPROFLOXACIN 500 MG TAB PO SCH (21:05)
--- NOTE | 2016-12-29 22:26 | DIAGNOSTIC IMAGING REPORT ---
RIGHT LOWER EXTREMITY VENOUS DOPPLER HISTORY: RLE swelling Right COMPARISON STUDY: None. FINDINGS: There is normal compressibility, flow, and augmentation within the right lower extremity deep venous system. A 7.1 x 2.2 cm slightly complex popliteal cyst. IMPRESSION: No DVT within the right lower extremity Electronically signed by: Gregory Roth M.D. 12/29/2016 10:25 PM Dictated Date/Time: 12/29/2016 10:24 PM
[2016-12-30 00:52] VITALS: BP 137/70; PULSE 67; TEMP 36.6; O2SAT 98
[2016-12-30] MEDS: OXYCODONE/ACETAMINOPHEN 5-325 TAB PO PRN ×2 (04:45→20:44)
[2016-12-30 05:22] LABS: HEMATOCRIT 28.7 % (37-47); MEAN CELL VOLUME 106.3 fL (80-100); MEAN CORPUSCULAR HEMOGLOBIN 36.7 pg (25-34); MEAN CORPUSCULAR HGB CONC 34.5 g/dl (32-36); MEAN PLATELET VOLUME 9.4 fL (7.4-10.4); PLATELET COUNT 530 K/uL (130-400); WHITE BLOOD COUNT 6.52 K/uL (4.8-10.8)
[2016-12-30] MEDS: LEVOTHYROXINE 25 MCG TAB PO SCH (06:03)
[2016-12-30 06:07] LABS: BUN/CREATININE RATIO 45.5 (10-20); CALCIUM 8.2 mg/dl (8.5-10.1); CREATININE 0.64 mg/dl (0.60-1.20); POTASSIUM 4.1 mmol/L (3.5-5.1)
[2016-12-30] MEDS: CIPROFLOXACIN 500 MG TAB PO SCH ×2 (07:44→20:12)
[2016-12-30] MEDS: CITALOPRAM 20 MG TAB PO SCH (07:44)
[2016-12-30] MEDS: METRONIDAZOLE 500 MG TAB PO SCH ×3 (07:44→20:12)
[2016-12-30] MEDS: METOPROLOL TARTRATE 25 MG TAB PO SCH ×2 (07:44→20:12)
[2016-12-30] MEDS: ASPIRIN 81 MG ECTAB PO SCH (07:44)
[2016-12-30] MEDS: FoLIC ACID TAB 400 MCG TAB PO SCH (07:44)
[2016-12-30] MEDS: LOPERAMIDE HCL 2 MG CAP PO SCH (07:45)
[2016-12-30] MEDS: CARBAMAZEPINE 200 MG TAB PO SCH ×2 (07:45→20:14)
[2016-12-30] MEDS: ASCORBIC ACID 500 MG TAB PO SCH ×2 (07:45→20:14)
[2016-12-30] MEDS: ENOXAPARIN 60 MG/0.6 ML SYR SQ SCH ×2 (07:46→20:15)
[2016-12-30] MEDS: CALCIUM CARBONATE 1250MG TAB PO SCH (07:47)
[2016-12-30] MEDS: ROSUVASTATIN CALCIUM 10 MG TAB PO SCH (07:48)
[2016-12-30] MEDS: FUROSEMIDE 40 MG TAB PO SCH (07:48)
[2016-12-30] MEDS: NIACIN 500 MG TAB IMMEDIATE RELEASE PO SCH (07:48)
[2016-12-30] MEDS: SITAGLIPTIN 100 MG TAB PO SCH (07:48)
[2016-12-30] MEDS: PANTOprazole SOD 40 MG TAB PO SCH (07:48)
[2016-12-30] MEDS: CEROVITE ADV FORMULA TAB PO SCH ×2 (07:48→20:12)
[2016-12-30] MEDS: OMEGA-3 (PURIFIED FISH OIL) 1 GM CAP PO SCH ×2 (07:48→20:12)
[2016-12-30] MEDS: ROPINIROLE HCL 1 MG TAB PO SCH ×2 (07:49→20:15)
[2016-12-30] MEDS: BOOST BREEZE NUTRITION DRINK 1 BOX PO SCH ×2 (07:49→20:00)
[2016-12-30] MEDS: HYDROXYUREA 500 MG CAP PO SCH ×2 (07:54→20:43)
[2016-12-30 07:56] VITALS: BP 138/71; PULSE 71; TEMP 36.8; O2SAT 96
--- NOTE | 2016-12-30 09:00 | Surgery Progress Note ---
Surgery Progress Note Date of Service Dec 30, 2016. Subjective Post OP Day: HD # 8 + feeling well, + bowel movement, + flatus, + diet (tolerating soft diet), No complaints, No chest pain, No SOB, No nausea, No vomiting Objective Vital Signs: Date Time Temp Pulse Resp B/P (MAP) Pulse Ox O2 Delivery O2 Flow Rate FiO2 12/30/16 07:56 36.8 71 16 138/71 (93) 96 12/30/16 00:52 36.6 67 18 137/70 (92) 98 Room Air 12/30/16 00:00 Room Air 12/29/16 20:45 73 137/68 (91) 12/29/16 20:00 Room Air 12/29/16 16:01 Room Air 12/29/16 14:36 37.3 70 18 126/71 (89) 98 Room Air General Appearance: WD/WN, no apparent distress Neck: trachea midline Respiratory/Chest: lungs clear, normal breath sounds, no respiratory distress, no accessory muscle use Cardiovascular: regular rate, rhythm, no murmur Abdomen: normal bowel sounds, non tender, non distended, soft, no organomegaly Laboratory Results: Results Past 24 Hours Test 12/29/16 11:29 12/29/16 16:31 12/29/16 20:20 12/30/16 05:10 Range/Units Bedside Glucose 142 103 181 70-90 mg/dl White Blood Count 6.52 4.8-10.8 K/uL Red Blood Count 2.70 4.2-5.4 M/uL Hemoglobin 9.9 12.0-16.0 g/dL Hematocrit 28.7 37-47 % Mean Corpuscular Volume 106.3 80-100 fL Mean Corpuscular Hemoglobin 36.7 25-34 pg Mean Corpuscular Hemoglobin Concent 34.5 32-36 g/dl RDW Standard Deviation 56.9 36.4-46.3 fL RDW Coefficient of Variation 14.8 11.5-14.5 % Platelet Count 530 130-400 K/uL Mean Platelet Volume 9.4 7.4-10.4 fL Sodium Level 133 136-145 mmol/L Potassium Level 4.1 3.5-5.1 mmol/L Chloride Level 99 98-107 mmol/L Carbon Dioxide Level 26 21-32 mmol/L Anion Gap 8.0 3-11 mmol/L Blood Urea Nitrogen 29 7-18 mg/dl Creatinine 0.64 0.60-1.20 mg/dl Est Creatinine Clear Calc Drug Dose 80.4 ml/min Estimated GFR () 98.4 Estimated GFR (Non- 84.9 BUN/Creatinine Ratio 45.5 10-20 Random Glucose 104 70-99 mg/dl Calcium Level 8.2 8.5-10.1 mg/dl Test 12/30/16 07:52 Range/Units Bedside Glucose 123 70-90 mg/dl Assessment & Plan Colonic Microperforation with abscess - no leukocytosis - afebrile - vitals stable - +bowel function - abdomen soft and benign - Repeat CT scan shows stable abscess Plan: Continue soft diet continue oral antibiotics Continue current medical management established by hospitalist service Waiting on recommendations from Delilah Plan to be discharged to [facility] once medically stable Addendum 12/30/2016 12:25 pm Patient is being transferred to [place] Dr. Rodriguez has seen patient and agrees with above
[2016-12-30] MEDS: INSULIN HUMAN REGULAR SC SCH ×4 (09:19→20:37)
--- NOTE | 2016-12-30 13:04 | Progress Note ---
Internal Med Progress Note Date of Service: Dec 30, 2016. Provider Documentation: SUBJECTIVE : Patient is doing well. Pedal edema bilaterally; right more than left and near knee , more redness and pain No abdominal pain, fever, chills, nausea, vomiting. No rectal bleeding any more. Tolerated regular food , though appetite is poor OBJECTIVE: Vital Signs-as noted below Exam: General Appearance: no apparent distress, AAOX3 Respiratory/Chest: lungs clear, normal breath sounds, no respiratory distress, no accessory muscle use Cardiovascular: regular rate, rhythm, no edema, no murmur Abdomen: normal bowel sounds, non tender, soft Ext: Worsening edema bilaterally extending upto below knees- Right > left ( which is chronic) Lab data as noted below. ASSESSMENT & PLAN: This is a 81 year old female with a PMH of DM2, HTN, hypothyroidism, DVT on Lovenox, HLD, restless leg syndrome with a recent GI procedure - colonic dilation; with a microperforation which required clipping - was discharged on - presented to [facility] due to syncope. INTRA ABDOMINAL ABSCESS/FISTULA : S/P Colonic Dilation via colonoscopy & Microperforation CT abdomen was performed on 12/26/16 - gas/fluid collection in the mid-abdomen; 3.5cm, likely abscess noted -S/P Bowel rest x 7 days and now on regular diet- tolerating but minimal appetite -S/P IV TPN (Day 7) to give bowel rest. Discontinued on 12/29/16 -S/P IV Ciprofloxacin /Flagyl (Day 5)--> Changed to PO on 12/27 (Day 8 of antibx) PLAN: Per repeat CT scan on 12/27/16- persistent suspected abscess adjacent to ileocolonic anastomosis. Minimal decrease in size of abscess since CT of s/p subtotal colectomy. Apparent fistulous tract extending from the collection to the anastomosis. Discussed with GI who had discussion with [facility] about the options. Would try to avoid invasive procedure if possible especially as has no symptoms and signs of infection per my discussion with GI. Likely specialists leaning towards conservative approach with close outpatient follow up for now. RIGHT > LOWER EXTREMITY SWELLING Likely secondary to IV TPN x 7 days. Was discontinued on 12/29, Lasix was restarted on 12/28/16. Today noticed some rednes in skin near knee-tender, warm, erythematous -Will start on doxycycline x 5 days -Venous duplex- negative for DVT S/P EPISODE OF RECTAL BLEEDING : On 12/26/16, no more since than -H & H stable. -No more intervention per GI SYNCOPE -Resolved Likely secondary to above -Work up- Head CT, cervical CT - no acute findings; Carotid U/S - negative; Echo - with no acute findings; some RV overload -PT/OT - PT recommendation is home, OT recommends inpatient rehab Hx. of DVT / PE of lower extremity -Due to prior hx of DVT/PE, patient has been on lovenox SQ BID x 4 years. Will continue with Lovenox SQ 60 mg q 12 hours as prior to home. DM2 -Continue with Januvia and a sliding scale -sugars are stable, monitor with TPN and clears HTN -Blood pressure controlled, continue current medications HYPOTHYROIDISM TSH wnl -Continue Synthroid DVT PROPHYLAXIS Lovenox SQ BID DNR DISPOSITION Likely discharge in AM to [facility] Discussed with GI today- okay with plan Vital Signs: Date Time Temp Pulse Resp B/P (MAP) Pulse Ox O2 Delivery O2 Flow Rate FiO2 12/30/16 08:00 Room Air 12/30/16 07:56 36.8 71 16 138/71 (93) 96 12/30/16 00:52 36.6 67 18 137/70 (92) 98 Room Air 12/30/16 00:00 Room Air 12/29/16 20:45 73 137/68 (91) 12/29/16 20:00 Room Air 12/29/16 16:01 Room Air 12/29/16 14:36 37.3 70 18 126/71 (89) 98 Room Air Lab Results: Results Past 24 Hours Test 12/29/16 16:31 12/29/16 20:20 12/30/16 05:10 12/30/16 07:52 Range/Units Bedside Glucose 103 181 123 70-90 mg/dl White Blood Count 6.52 4.8-10.8 K/uL Red Blood Count 2.70 4.2-5.4 M/uL Hemoglobin 9.9 12.0-16.0 g/dL Hematocrit 28.7 37-47 % Mean Corpuscular Volume 106.3 80-100 fL Mean Corpuscular Hemoglobin 36.7 25-34 pg Mean Corpuscular Hemoglobin Concent 34.5 32-36 g/dl RDW Standard Deviation 56.9 36.4-46.3 fL RDW Coefficient of Variation 14.8 11.5-14.5 % Platelet Count 530 130-400 K/uL Mean Platelet Volume 9.4 7.4-10.4 fL Sodium Level 133 136-145 mmol/L Potassium Level 4.1 3.5-5.1 mmol/L Chloride Level 99 98-107 mmol/L Carbon Dioxide Level 26 21-32 mmol/L Anion Gap 8.0 3-11 mmol/L Blood Urea Nitrogen 29 7-18 mg/dl Creatinine 0.64 0.60-1.20 mg/dl Est Creatinine Clear Calc Drug Dose 80.4 ml/min Estimated GFR () 98.4 Estimated GFR (Non- 84.9 BUN/Creatinine Ratio 45.5 10-20 Random Glucose 104 70-99 mg/dl Calcium Level 8.2 8.5-10.1 mg/dl Test 12/30/16 11:58 Range/Units Bedside Glucose 132 70-90 mg/dl
[2016-12-30] MEDS: DOXYCYCLINE HYCLATE 100 MG CAP PO SCH ×2 (13:57→20:15)
[2016-12-30 15:17] VITALS: BP 138/64; PULSE 84; TEMP 36.6; O2SAT 98
[2016-12-30] MEDS ORDERED: DOXYCYCLINE HYCLATE 100 MG CAP PO SCH (20:00)
[2016-12-30] MEDS: GABAPENTIN 600 MG TAB PO SCH (20:12)
[2016-12-31 00:21] VITALS: BP 136/68; PULSE 76; TEMP 37.2; O2SAT 97
[2016-12-31] MEDS: LEVOTHYROXINE 25 MCG TAB PO SCH (05:40)
[2016-12-31 07:46] VITALS: BP 137/69; PULSE 70; TEMP 36.6; O2SAT 93
[2016-12-31] MEDS: PANTOprazole SOD 40 MG TAB PO SCH (07:50)
[2016-12-31] MEDS: FUROSEMIDE 40 MG TAB PO SCH (07:50)
[2016-12-31] MEDS: ASCORBIC ACID 500 MG TAB PO SCH (07:51)
[2016-12-31] MEDS: DOXYCYCLINE HYCLATE 100 MG CAP PO SCH (07:51)
[2016-12-31] MEDS: SITAGLIPTIN 100 MG TAB PO SCH (07:51)
[2016-12-31] MEDS: OMEGA-3 (PURIFIED FISH OIL) 1 GM CAP PO SCH (07:52)
[2016-12-31] MEDS: CARBAMAZEPINE 200 MG TAB PO SCH (07:52)
[2016-12-31] MEDS: CIPROFLOXACIN 500 MG TAB PO SCH (07:53)
[2016-12-31] MEDS: METOPROLOL TARTRATE 25 MG TAB PO SCH (07:53)
[2016-12-31] MEDS: METRONIDAZOLE 500 MG TAB PO SCH ×2 (07:53→13:18)
[2016-12-31] MEDS: CEROVITE ADV FORMULA TAB PO SCH (07:53)
[2016-12-31] MEDS: NIACIN 500 MG TAB IMMEDIATE RELEASE PO SCH (07:54)
[2016-12-31] MEDS: FoLIC ACID TAB 400 MCG TAB PO SCH (07:54)
[2016-12-31] MEDS: ROSUVASTATIN CALCIUM 10 MG TAB PO SCH (07:54)
[2016-12-31] MEDS: ENOXAPARIN 60 MG/0.6 ML SYR SQ SCH (07:55)
[2016-12-31] MEDS: BOOST BREEZE NUTRITION DRINK 1 BOX PO SCH (08:00)
[2016-12-31] MEDS: ROPINIROLE HCL 1 MG TAB PO SCH (09:17)
[2016-12-31] MEDS: CITALOPRAM 20 MG TAB PO SCH (09:18)
[2016-12-31] MEDS: ASPIRIN 81 MG ECTAB PO SCH (09:19)
[2016-12-31] MEDS: LOPERAMIDE HCL 2 MG CAP PO SCH (09:19)
[2016-12-31] MEDS: CALCIUM CARBONATE 1250MG TAB PO SCH (09:19)
[2016-12-31] MEDS: INSULIN HUMAN REGULAR SC SCH ×2 (09:26→13:20)
[2016-12-31] MEDS: HYDROXYUREA 500 MG CAP PO SCH ×2 (09:27→13:21)
--- NOTE | 2016-12-31 13:36 | Progress Note ---
Internal Med Progress Note Date of Service: Dec 31, 2016. Provider Documentation: SUBJECTIVE : Patient is doing well. Pedal edema bilaterally; right more than left and near knee , more redness and pain No abdominal pain, fever, chills, nausea, vomiting. No rectal bleeding any more. Tolerated regular food , though appetite is poor OBJECTIVE: Vital Signs-as noted below Exam: General Appearance: no apparent distress, AAOX3 Respiratory/Chest: lungs clear, normal breath sounds, no respiratory distress, no accessory muscle use Cardiovascular: regular rate, rhythm, no edema, no murmur Abdomen: normal bowel sounds, non tender, soft Ext: Worsening edema bilaterally extending upto below knees- Right > left ( which is chronic) Lab data as noted below. ASSESSMENT & PLAN: This is a 81 year old female with a PMH of DM2, HTN, hypothyroidism, DVT on Lovenox, HLD, restless leg syndrome with a recent GI procedure - colonic dilation; with a microperforation which required clipping - was discharged on - presented to [facility] due to syncope. INTRA ABDOMINAL ABSCESS/FISTULA : S/P Colonic Dilation via colonoscopy & Microperforation CT abdomen was performed on 12/26/16 - gas/fluid collection in the mid-abdomen; 3.5cm, likely abscess noted -S/P Bowel rest x 7 days and now on regular diet- tolerating but minimal appetite -S/P IV TPN (Day 7) to give bowel rest. Discontinued on 12/29/16 -S/P IV Ciprofloxacin /Flagyl (Day 5)--> Changed to PO on 12/27 (Day 8 of antibx) PLAN: Per repeat CT scan on 12/27/16- persistent suspected abscess adjacent to ileocolonic anastomosis. Minimal decrease in size of abscess since CT of s/p subtotal colectomy. Apparent fistulous tract extending from the collection to the anastomosis. Discussed with GI who had discussion with [facility] about the options. Would try to avoid invasive procedure if possible especially as has no symptoms and signs of infection per my discussion with GI. Likely specialists leaning towards conservative approach with close outpatient follow up for now. RIGHT > LOWER EXTREMITY SWELLING Likely secondary to IV TPN x 7 days. Was discontinued on 12/29, Lasix was restarted on 12/28/16. Today noticed some rednes in skin near knee-tender, warm, erythematous -Will start on doxycycline x 5 days -Venous duplex- negative for DVT S/P EPISODE OF RECTAL BLEEDING : On 12/26/16, no more since than -H & H stable. -No more intervention per GI SYNCOPE -Resolved Likely secondary to above -Work up- Head CT, cervical CT - no acute findings; Carotid U/S - negative; Echo - with no acute findings; some RV overload -PT/OT - PT recommendation is home, OT recommends inpatient rehab Hx. of DVT / PE of lower extremity -Due to prior hx of DVT/PE, patient has been on lovenox SQ BID x 4 years. Will continue with Lovenox SQ 60 mg q 12 hours as prior to home. DM2 -Continue with Januvia and a sliding scale -sugars are stable, monitor with TPN and clears HTN -Blood pressure controlled, continue current medications HYPOTHYROIDISM TSH wnl -Continue Synthroid DVT PROPHYLAXIS Lovenox SQ BID DNR DISPOSITION Likely discharge in AM to [facility] Discussed with GI today- okay with plan Vital Signs: Date Time Temp Pulse Resp B/P (MAP) Pulse Ox O2 Delivery O2 Flow Rate FiO2 12/31/16 14:24 36.6 70 18 93 Room Air 12/31/16 08:00 Room Air 12/31/16 07:46 36.6 70 18 137/69 (91) 93 Lab Results: Results Past 24 Hours Test 12/31/16 07:34 12/31/16 12:04 Range/Units Bedside Glucose 136 153 70-90 mg/dl
--- NOTE | 2016-12-31 13:36 | Medical Consult ---
History General Date of Service: Dec 31, 2016. Stated Complaint: Dizzy Spells, Syncope HPI The patient is a 81 year old female who presents to [facility] with complaints of Dizzy Spells, Syncope. The patient's primary care provider is Yan Randolph. Family History Cancer Diabetes mellitus Heart disease Hypertension Kidney disease Kidney stones Social History Hx Tobacco Use In Past Year?: No Smoking Status: Never Smoker Marital status: Housing status: lives with family Occupational Status: unemployed Allergies Coded Allergies: Butorphanol (Verified Allergy, Intermediate, HIVES, 12/21/16) Chlorzoxazone (Verified Allergy, Intermediate, HIVES, 12/21/16) Erythromycin (Verified Allergy, Intermediate, HIVES, 12/21/16) Naloxone (Verified Allergy, Intermediate, HIVES, 12/21/16) Nitrofurantoin (Verified Allergy, Intermediate, HIVES, 12/21/16) Pentazocine (Verified Allergy, Intermediate, HIVES, 12/21/16) Diazepam (Verified Adverse Reaction, Unknown, FELLS LIKE CRAWLING UP A WALL, 12/21/16) Current Medications Reported Home Medications Medications Dose Route/Sig Max Daily Dose Days Date Category Dose Instructions Tegretol (Carbamazepine) 200 Mg Tab 300 Mg PO BID 12/21/16 Reported Zaroxolyn (Metolazone) 2.5 Mg Tab 2.5 Mg PO DAILY PRN 12/21/16 Reported Fenofibrate 150 Mg Cap 150 Mg PO DAILY 12/21/16 Reported Enoxaparin Sodium (Enoxaparin) 60 Mg/0.6 Ml Inj 60 Mg SQ Q12H 30 10/15/16 Rx continue per home medication regimen Niacin 500 Mg Tab 500 Mg PO QAM 10/08/16 Reported Hydroxyurea 500 Mg Cap 500 Mg PO UD 10/08/16 Reported TAKE 500 MG TID ON MONDAY, MONDAY, AND MONDAY. Caltrate 600+D (Calcium Carbonate-Cholecalcife) 1 Tab Tab 1 Tab PO DAILY 10/08/16 Reported Requip (Ropinirole HCl) 1 Mg Tab 3 Mg PO HS 10/06/16 Reported Methenamine Hippurate 1 Gm Tab 1 Gm PO BID 10/06/16 Reported Vitamin C (Ascorbic Acid) 1,000 Mg Tab 1,000 Mg PO BID 10/06/16 Reported Aspirin Ec (Aspirin) 81 Mg Tab 81 Mg PO QAM 1/28/17 Reported Mobile-3 (Fish Oil) 1 Ea Cap 1 Cap PO BID 08/27/16 Reported Citalopram Hydrobromide 10 Mg Tab 10 Mg PO QAM 08/27/16 Reported Preservision Areds 2 (Multiple Vitamins W/ Minerals) 1 Cap Cap 1 Cap PO BID 08/27/16 Reported Percocet 5MG/325MG (Oxycodone/Acetaminophen) Tab 1 Tablet PO Q4H PRN 08/27/16 Reported PAIN Levothyroxine Sodium 25 Mcg Tab 25 Mcg PO QAM 08/27/16 Reported Neurontin (Gabapentin) 300 Mg Cap 1,200 Mg PO HS 08/27/16 Reported Ropinirole HCl 1 Mg Tab 1 Mg PO QAM 08/27/16 Reported Lasix (Furosemide) 40 Mg Tab 40 Mg PO QAM 08/27/16 Reported Crestor (Rosuvastatin Calcium) 5 Mg Tab 5 Mg PO QAM 08/27/16 Reported Folvite (Folic Acid) 1 Mg Tab 400 Mcg PO QAM 08/27/16 Reported Hydrea Cap (Hydroxyurea) 500 Mg Cap 500 Mg PO UD 08/27/16 Reported TAKE 500 MG BID ON MONDAY, MONDAY, MONDAY, AND MONDAY. Protonix (Pantoprazole Sodium) 40 Mg Tab 40 Mg PO QAM 08/27/16 Reported Lopressor (Metoprolol Tartrate) 25 Mg Tab 25 Mg PO BID 08/27/16 Reported Januvia (Sitagliptin Phosphate) 100 Mg Tab 100 Mg PO QAM 08/27/16 Reported Physical Physical Exam Vital Signs: Date Time Temp Pulse Resp B/P (MAP) Pulse Ox O2 Delivery O2 Flow Rate FiO2 12/31/16 08:00 Room Air 12/31/16 07:46 36.6 70 18 137/69 (91) 93 12/31/16 00:25 Room Air 12/31/16 00:21 37.2 76 18 136/68 (90) 97 Room Air 12/30/16 15:30 Room Air 12/30/16 15:17 36.6 84 16 138/64 (88) 98 Room Air Diagnostics Labs Results Past 24 Hours Test 12/30/16 17:00 12/30/16 20:21 12/31/16 07:34 12/31/16 12:04 Range/Units Bedside Glucose 122 131 136 153 70-90 mg/dl Impression Assessment and Plan This is a 81 year old female with a PMH of DM2, HTN, hypothyroidism, DVT on Lovenox, HLD, restless leg syndrome with a recent GI procedure - colonic dilation; with a microperforation which required clipping - was discharged on - presented to [facility] due to syncope. INTRA ABDOMINAL ABSCESS/FISTULA : S/P Colonic Dilation via colonoscopy & Microperforation CT abdomen was performed on 12/26/16 - gas/fluid collection in the mid-abdomen; 3.5cm, likely abscess noted -S/P Bowel rest x 7 days and now on regular diet- tolerating but minimal appetite -S/P IV TPN (Day 7) to give bowel rest. Discontinued on 12/29/16 -S/P IV Ciprofloxacin /Flagyl (Day 5)--> Changed to PO on 12/27 (Day 8 of antibx) PLAN: Per repeat CT scan on 12/27/16- persistent suspected abscess adjacent to ileocolonic anastomosis. Minimal decrease in size of abscess since CT of s/p subtotal colectomy. Apparent fistulous tract extending from the collection to the anastomosis. Discussed with GI [facility] Would try to avoid invasive procedure if possible especially as has no symptoms and signs of infection per my discussion with GI. Likely specialists leaning towards conservative approach with close outpatient follow up for now. RIGHT > LOWER EXTREMITY SWELLING Likely secondary to IV TPN x 7 days. Was discontinued on 12/29, Lasix was restarted on 12/28/16. Today noticed some rednes in skin near knee-tender, warm, erythematous -Will start on doxycycline x 5 days -Venous duplex- negative for DVT S/P EPISODE OF RECTAL BLEEDING : On 12/26/16, no more since than -H & H stable. -No more intervention per GI SYNCOPE -Resolved Likely secondary to above -Work up- Head CT, cervical CT - no acute findings; Carotid U/S - negative; Echo - with no acute findings; some RV overload -PT/OT - PT recommendation is home, OT recommends inpatient rehab Hx. of DVT / PE of lower extremity -Due to prior hx of DVT/PE, patient has been on lovenox SQ BID x 4 years. Will continue with Lovenox SQ 60 mg q 12 hours as prior to home. DM2 -Continue with Januvia and a sliding scale -sugars are stable, monitor with TPN and clears HTN -Blood pressure controlled, continue current medications HYPOTHYROIDISM TSH wnl -Continue Synthroid DVT PROPHYLAXIS Lovenox SQ BID DNR DISPOSITION Likely discharge in AM to [facility] Discussed with GI today- okay with plan
--- NOTE | 2016-12-31 13:40 | Progress Note ---
Internal Med Progress Note Date of Service: Dec 31, 2016. Provider Documentation: SUBJECTIVE : Patient is doing well. Pedal edema bilaterally; right more than left and near knee - redness and pain has improved. No abdominal pain, fever, chills, nausea, vomiting. No rectal bleeding any more. Tolerated regular food , though appetite is poor OBJECTIVE: Vital Signs-as noted below Exam: General Appearance: no apparent distress, AAOX3 Respiratory/Chest: lungs clear, normal breath sounds, no respiratory distress, no accessory muscle use Cardiovascular: regular rate, rhythm, no edema, no murmur Abdomen: normal bowel sounds, non tender, soft Ext: B/L lower extremity edema, extending upto below knee, Right > Left ( Chronic but worsened), Erythema/Tenderness near knee. Lab data as noted below. ASSESSMENT & PLAN: This is a 81 year old female with a PMH of DM2, HTN, hypothyroidism, DVT on Lovenox, HLD, restless leg syndrome with a recent GI procedure - colonic dilation; with a microperforation which required clipping - was discharged on - presented to [facility] due to syncope. INTRA ABDOMINAL ABSCESS/FISTULA : S/P Colonic Dilation via colonoscopy & Microperforation CT abdomen was performed on 12/26/16 - gas/fluid collection in the mid-abdomen; 3.5cm, likely abscess noted -S/P Bowel rest x 7 days and now on regular diet- tolerating but minimal appetite -S/P IV TPN (Day 7) to give bowel rest. Discontinued on 12/29/16 -S/P IV Ciprofloxacin /Flagyl (Day 5)--> Changed to PO on 12/27 (Day 8 of antibx) . Will continue with Ciprofloxacin/Flagyl x 7 more days. PLAN: Per repeat CT scan on 12/27/16- persistent suspected abscess adjacent to ileocolonic anastomosis. Minimal decrease in size of abscess since CT of s/p subtotal colectomy. Apparent fistulous tract extending from the collection to the anastomosis. Discussed with GI who had discussion with Delilah Maldonado about the options. Would try to avoid invasive procedure especially as has no symptoms and signs of infection per my discussion with GI. Continue with Ciprofloxacin/Flagyl x 7 days with close f/up with GI RIGHT > LOWER EXTREMITY SWELLING Likely secondary to IV TPN x 7 days. Was discontinued on 12/29, Lasix was restarted on 12/28/16. Noticed some redness in skin near knee-tender, warm, erythematous--> Started doxyccycline on 12/30/16- improved redness and pain --> Complete course of 7 days -Venous duplex- negative for DVT -Will increase lasix to 60 mg daily for x 5 days and than change it back to 40mg daily--> to help with increasing leg edema S/P EPISODE OF RECTAL BLEEDING : On 12/26/16, no more since than -H & H stable. -No more intervention per GI SYNCOPE -Resolved Likely secondary to above -Work up- Head CT, cervical CT - no acute findings; Carotid U/S - negative; Echo - with no acute findings; some RV overload -PT/OT - PT recommendation is home, OT recommends inpatient rehab Hx. of DVT / PE of lower extremity -Due to prior hx of DVT/PE, patient has been on lovenox SQ BID x 4 years. Will continue with Lovenox SQ 60 mg q 12 hours as prior to home. DM2 -Continue with Januvia and a sliding scale -sugars are stable, monitor with TPN and clears HTN -Blood pressure controlled, continue current medications HYPOTHYROIDISM TSH wnl -Continue Synthroid DVT PROPHYLAXIS Lovenox SQ BID DNR DISPOSITION Cleared for discharge by SHILPA Mims to discharge to [facility] [place] today Vital Signs: Date Time Temp Pulse Resp B/P (MAP) Pulse Ox O2 Delivery O2 Flow Rate FiO2 12/31/16 08:00 Room Air 12/31/16 07:46 36.6 70 18 137/69 (91) 93 12/31/16 00:25 Room Air 12/31/16 00:21 37.2 76 18 136/68 (90) 97 Room Air 12/30/16 15:30 Room Air 12/30/16 15:17 36.6 84 16 138/64 (88) 98 Room Air Lab Results: Results Past 24 Hours Test 12/30/16 17:00 12/30/16 20:21 12/31/16 07:34 12/31/16 12:04 Range/Units Bedside Glucose 122 131 136 153 70-90 mg/dl
[2016-12-31] MEDS ORDERED: CPR500 PO (13:44)
[2016-12-31] MEDS ORDERED: Boost Nutritional Drink PO (13:44)
[2016-12-31] MEDS ORDERED: DXY100 PO (13:44)
[2016-12-31] MEDS ORDERED: FRS/40 PO (13:44)
[2016-12-31] MEDS ORDERED: OXYC-57 PO (13:44)
[2016-12-31] MEDS ORDERED: MTR500 PO (13:44)
[2016-12-31] MEDS ORDERED: IMD2 PO (13:44)
--- NOTE | 2016-12-31 13:48 | Discharge Instructions ---
Discharge Instructions Date of Service Dec 31, 2016. Admission Reason for Admission: Dizzy Spells, Syncope Discharge Discharge Diagnosis / Problem: 1. Intraabdominal abscess/fistula Discharge Goals Goal(s): Decrease discomfort, Improve function, Increase independence, Diagnostic testing, Therapeutic intervention Activity Recommendations Activity Limitations: per Instructions/Follow-up section ( TOLERATED WITH ASSISTANCE/ pt/ot recommended) . Instructions / Follow-Up Instructions / Follow-Up MEDICATION CHANGES: 1. New medication- Ciprofloxacin 500 mg PO BID x 7 days 2. New medication- Metronidazole 500 mg PO TID x 7 days 3. New medication- Doxycycline 100 mg pO BID X 6 more days for cellulitis involving small area near right knee 4. Increase lasix to 60m g daily x 5 days and than decrease it to 40 mg daily ( to help with leg edema) 5. Consider discontinuation of imodium if starts getting constipated FOLLOW UP 1. Follow up with PCP in 1 week 2. Follow up with GI . They will call you for appointment date/time Current Hospital Diet Patient's current hospital diet: Diabetes Type 2 Diet, AHA Diet (Heart Healthy) , Low Fiber Diet Discharge Diet Recommended Diet: AHA Diet (Heart Healthy), Low Fiber Diet (Low residue diet) Pending Studies Studies pending at discharge: no Laboratory Results Lipid Panel Test 12/24/16 05:25 Range/Units Triglycerides Level 295 H 0-150 mg/dl Medical Emergencies . Who to Call and When: Medical Emergencies: If at any time you feel your situation is an emergency, please call 911 immediately. . Non-Emergent Contact Non-Emergency issues call your: Primary Care Provider, Specialist (GI) . . "Provider Documentation" section prepared by Meghan Prajapati. . VTE Core Measure Inpt VTE Proph given/why not?: Enoxaparin (Lovenox)SQ
--- NOTE | 2016-12-31 13:57 | Discharge Summary ---
Discharge Summary Date of Service Dec 31, 2016. Discharge Summary Admission Date: December 22, 2016 at 12:16 Discharge Date: Dec 31, 2016 Discharge Disposition: alf facility ([facility]) Principal Diagnosis: 1. Intra abdominal abscess/Fistula 2. Syncope 3. Cellulitis involving small area near right knee 4. Small - moderate right knee effusion Secondary Diagnoses/Problems: 1. HTN 2. DM-2 3. Hypothyroidism 4. Hx of DVT/PE on chronic anticoagulation 5. Physical deconditioning Procedures: IV antibiotics IV TPN X [address] abd/pelvis Serial CXR Knee x ray- right Serial KUB CT head Venous duplex PT/OT Consultations: GI General surgery Pending Studies/Follow-Up: . Instructions / Follow-Up Instructions / Follow-Up MEDICATION CHANGES: 1. New medication- Ciprofloxacin 500 mg PO BID x 7 days 2. New medication- Metronidazole 500 mg PO TID x 7 days 3. New medication- Doxycycline 100 mg pO BID X 6 more days for cellulitis involving small area near right knee 4. Increase lasix to 60m g daily x 5 days and than decrease it to 40 mg daily ( to help with leg edema) 5. Consider discontinuation of imodium if starts getting constipated FOLLOW UP 1. Follow up with PCP in 1 week 2. Follow up with GI . They will call you for appointment date/time MONITOR 1. Right knee effusion and redness. Placed on antibiotics for cellulitis.No signs of sepsis. If continues to worsen, may need to consider tapping right knee 2. If develops any signs of infection, do call PCP/Transfer to ER Medication Reconciliation New Medications: Ciprofloxacin (Ciprofloxacin HCl) 500 Mg Tab 500 MG PO BID for 7 Days, TAB Doxycycline Hyclate (Doxycycline Hyclate) 100 Mg Cap 100 MG PO BID for 6 Days, CAP Loperamide HCl (Loperamide HCl) 2 Mg Cap 2 MG PO DAILY for 10 Days, CAP Metronidazole (Metronidazole) 500 Mg Tab 500 MG PO TID for 7 Days, TAB [Boost Nutritional Drink] () 1 BOX LIQD 1 BOX PO BID for 10 Days Changed Medications: Furosemide (Lasix) 40 Mg Tab 60 MG PO QAM, #30 TAB (Changed from: 40 MG) Continued Medications: Ascorbic Acid (Vitamin C) 1,000 Mg Tab 1000 MG PO BID Aspirin (Aspirin Ec) 81 Mg Tab 81 MG PO QAM Calcium Carbonate-Cholecalcife (Caltrate 600+D) 1 Tab Tab 1 TAB PO DAILY Carbamazepine (Tegretol) 200 Mg Tab 300 MG PO BID, TAB Citalopram Hydrobromide (Citalopram Hydrobromide) 10 Mg Tab 10 MG PO QAM, TAB 3 Refills Enoxaparin (Enoxaparin Sodium) 60 Mg/0.6 Ml Inj 60 MG SQ Q12H for 30 Days continue per home medication regimen Fenofibrate (Fenofibrate) 150 Mg Cap 150 MG PO DAILY Fish Oil (Braymer-3) 1 Ea Cap 1 CAP PO BID, CAP Folic Acid (Folvite) 1 Mg Tab 400 MCG PO QAM, TAB Gabapentin (Neurontin) 300 Mg Cap 1200 MG PO HS, CAP Hydroxyurea (Hydrea Cap) 500 Mg Cap 500 MG PO UD, CAP TAKE 500 MG BID ON MONDAY, MONDAY, MONDAY, AND MONDAY. Hydroxyurea (Hydroxyurea) 500 Mg Cap 500 MG PO UD TAKE 500 MG TID ON MONDAY, MONDAY, AND MONDAY. Levothyroxine Sodium (Levothyroxine Sodium) 25 Mcg Tab 25 MCG PO QAM, TAB 3 Refills Metolazone (Zaroxolyn) 2.5 Mg Tab 2.5 MG PO DAILY PRN for fluid retention, TAB Metoprolol Tartrate (Lopressor) (Lopressor) 25 Mg Tab 25 MG PO BID, TAB Multiple Vitamins W/ Minerals (Preservision Areds 2) 1 Cap Cap 1 CAP PO BID Niacin (Niacin) 500 Mg Tab 500 MG PO QAM, TAB Oxycodone/Acetaminophen 5MG/325MG (Percocet 5MG/325MG) Tab 1 TABLET PO Q4H PRN for Pain, #20 TAB (This prescription has been renewed) PAIN Pantoprazole (Protonix) 40 Mg Tab 40 MG PO QAM, #30 TAB Ropinirole (Requip) 1 Mg Tab 3 MG PO HS, TAB Ropinirole HCl (Ropinirole HCl) 1 Mg Tab 1 MG PO QAM Rosuvastatin Calcium (Crestor) 5 Mg Tab 5 MG PO QAM, TAB Sitagliptin Phosphate (Januvia) 100 Mg Tab 100 MG PO QAM, TAB Discontinued Medications: Methenamine Hippurate (Methenamine Hippurate) 1 Gm Tab 1 GM PO BID Admission Information HPI (per Admitting provider): This is a 81 yo F with hx Colonic stenosis, CHF , Seizure disorder , Factor V Leiden , hx of DVT /PE on chronic Lovenox tx presented to ED with episode of syncope Pt was discharged yesterday from [facility] had Colonoscopy done for colonic stenosis dilatation pt mentions feeling fine after discharge , later at evening , as pt was going to bathroom -felt dizzy , lightheaded, fell and hit her heat passed out for brief second pt continued to feel nauseas and dizzy while trying to stand up CT head with out contrast negative for any bleed or acute change pt denies of any chest pain or SOB prior to fall in the ER she was given 1 L fluid bolus , feels much better symptomatically no dizzy spell , nausea has improved no report of dark stool after procedure no complain of abdominal pain Physical Exam (per Admitting): General Appearance: no apparent distress Head: normocephalic, atraumatic Eyes: sclerae normal Neck: thyroid normal Respiratory/Chest: chest non-tender, lungs clear, normal breath sounds, no respiratory distress Cardiovascular: regular rate, rhythm, no murmur Abdomen/GI: normal bowel sounds, non tender, soft Extremities/Musculoskelatal: no calf tenderness, normal capillary refill, no pedal edema Neurologic/Psych: no motor/sensory deficits, alert, normal mood/affect, oriented x 3 Skin: normal color, warm/dry, no rash Lymphatic: no adenopathy Hospital Course This is a 81 year old female with a PMH of DM2, HTN, hypothyroidism, DVT on Lovenox, HLD, restless leg syndrome with a recent GI procedure - colonic dilation; with a microperforation which required clipping - was discharged on - presented to [facility] due to syncope. INTRA ABDOMINAL ABSCESS/FISTULA : S/P Colonic Dilation via colonoscopy & Microperforation CT abdomen was performed on 12/26/16 - gas/fluid collection in the mid-abdomen; 3.5cm, likely abscess noted -S/P Bowel rest x 7 days and now on regular diet- tolerating but minimal appetite -S/P IV TPN (Day 7) to give bowel rest. Discontinued on 12/29/16 -S/P IV Ciprofloxacin /Flagyl (Day 5)--> Changed to PO on 12/27 (Day 8 of antibx) . Will continue with Ciprofloxacin/Flagyl x 7 more days. PLAN: Per repeat CT scan on 12/27/16- persistent suspected abscess adjacent to ileocolonic anastomosis. Minimal decrease in size of abscess since CT of s/p subtotal colectomy. Apparent fistulous tract extending from the collection to the anastomosis. Discussed with GI who had discussion with Delilah WHITE about the options. Would try to avoid invasive procedure especially as has no symptoms and signs of infection per my discussion with GI. Continue with Ciprofloxacin/Flagyl x 7 days with close f/up with GI. Conservative approach for now. RIGHT > LOWER EXTREMITY SWELLING SMALL - MODERATE RIGHT KNEE EFFUSION Likely worsening of swelling secondary to IV TPN x 7 days. Was discontinued on , Lasix was restarted on 12/28/16. Noticed some redness in skin near knee-tender, warm, erythematous--> Started doxycycline on 12/30/16- improved redness and pain --> Complete course of 7 days -X ray 12/22- Small /moderate right knee effusion. Monitor closely--> If worsens , develops signs of infection, may need to consider tapping. At this point, no indication with no signs of infection -Venous duplex- negative for DVT -Will increase lasix to 60 mg daily for x 5 days and than change it back to 40mg daily--> to help with increasing leg edema S/P EPISODE OF RECTAL BLEEDING : On 12/26/16, no more since than -H & H stable. -No more intervention per GI SYNCOPE -Resolved Likely secondary to above -Work up- Head CT, cervical CT - no acute findings; Carotid U/S - negative; Echo - with no acute findings; some RV overload -PT/OT - PT recommendation is home, OT recommends inpatient rehab Hx. of DVT / PE of lower extremity -Due to prior hx of DVT/PE, patient has been on lovenox SQ BID x 4 years. Will continue with Lovenox SQ 60 mg q 12 hours as prior to home. DM2 -Continue with Januvia and a sliding scale -sugars are stable, monitor with TPN and clears HTN -Blood pressure controlled, continue current medications HYPOTHYROIDISM TSH wnl -Continue Synthroid DVT PROPHYLAXIS Lovenox SQ BID DNR DISPOSITION Cleared for discharge by GI Okay to discharge to [place] today Total time spent on discharge = 40 MINUTES This includes examination of the patient, discharge planning, medication reconciliation, and communication with other providers. Discharge Instructions Discharge Goals Goal(s): Decrease discomfort, Improve function, Increase independence, Diagnostic testing, Therapeutic intervention Activity Recommendations Activity Limitations: per Instructions/Follow-up section ( TOLERATED WITH ASSISTANCE/ pt/ot recommended) . Instructions / Follow-Up Instructions / Follow-Up MEDICATION CHANGES: 1. New medication- Ciprofloxacin 500 mg PO BID x 7 days 2. New medication- Metronidazole 500 mg PO TID x 7 days 3. New medication- Doxycycline 100 mg pO BID X 6 more days for cellulitis involving small area near right knee 4. Increase lasix to 60m g daily x 5 days and than decrease it to 40 mg daily ( to help with leg edema) 5. Consider discontinuation of imodium if starts getting constipated FOLLOW UP 1. Follow up with PCP in 1 week 2. Follow up with GI . They will call you for appointment date/time Current Hospital Diet Patient's current hospital diet: Diabetes Type 2 Diet, AHA Diet (Heart Healthy) , Low Fiber Diet Discharge Diet Recommended Diet: AHA Diet (Heart Healthy), Low Fiber Diet (Low residue diet) Pending Studies Studies pending at discharge: no Laboratory Results Lipid Panel Test 12/24/16 05:25 Range/Units Triglycerides Level 295 H 0-150 mg/dl Medical Emergencies . Who to Call and When: Medical Emergencies: If at any time you feel your situation is an emergency, please call 911 immediately. . Non-Emergent Contact Non-Emergency issues call your: Primary Care Provider, Specialist (GI) . . "Provider Documentation" section prepared by Meghan Prajapati. . VTE Core Measure Inpt VTE Proph given/why not?: Enoxaparin (Lovenox)SQ
--- NOTE | 2016-12-31 14:09 | Progress Note ---
Progress Note Date of Service Dec 31, 2016. Progress Note I interviewed and examined pt, reviewed chart and labs. Pt feels well - she has no abd pain, is stooling normally, tolerating her present diet. She is without fever or leukocytosis. I reviewed her imaging findings from this admission with Dr. Morrison, who also discussed imaging findings with colorectal service at [facility]. She appears to have an abscess that is well drained by a sinus tract. At present, we will defer intervention, and plan conservative care/watchful waiting; it is possible that this abscess will develop into a mature fluid collection that continues to be decompressed by the sinus tract. The team at [facility] has advised against attempts at endoscopic and surgical intervention; also, she is a poor surgical candidate , and is likely would require a permanent ostomy. I discussed this plan with pt and daughter, who are both in agreement. The pt and daughter are both aware of the possibility of failure of conservative management, either due to enlargement of abscess, possible fistulization to bowel/bladder/vagina, or obstruction of sinus tract leading to systemic sepsis; again, dspite these risks , conservative management seems to be the least risky way of proceeding. I will arrange for clinic f/u in 2 weeks.
[2016-12-31 14:24] VITALS: BP 137/69; PULSE 70; TEMP 36.6; O2SAT 93
[2017-02-24] MEDS ORDERED: METH-1305 PO (14:14)
== END 2016-12-31 15:42 | DRG 862 ==
LOC: ENRESERVDT → ENRESERVTM → EDBD 02:16 → C.EDA 02:17 → C.2T 04:25 → OBSVTOIN 12-22 12:16 → C.4E 12-23 17:14
PROVIDERS: ADMIT Hospitalist; ATTEND Internal Medicine
PROC: 02HV33Z Insertion of Infusion Device into Superior Vena Cava, Percutaneous Approach (ICD-10-PCS; principal; 2016-12-23)
DX: T81.4XXA Infection following a procedure, initial encounter (principal); K65.1 Peritoneal abscess; K63.2 Fistula of intestine; S36.538A Laceration of other part of colon, initial encounter; K62.5 Hemorrhage of anus and rectum; L03.115 Cellulitis of right lower limb; D68.51 Activated protein C resistance; M79.89 Other specified soft tissue disorders; E11.9 Type 2 diabetes mellitus without complications; I11.0 Hypertensive heart disease with heart failure; I50.9 Heart failure, unspecified; E03.9 Hypothyroidism, unspecified; I25.10 Atherosclerotic heart disease of native coronary artery without angina pectoris; G25.81 Restless legs syndrome; G40.909 Epilepsy, unspecified, not intractable, without status epilepticus; Z51.81 Encounter for therapeutic drug level monitoring; Z79.899 Other long term (current) drug therapy; Z79.01 Long term (current) use of anticoagulants; Z79.84 Long term (current) use of oral hypoglycemic drugs; Z79.82 Long term (current) use of aspirin; Z66 Do not resuscitate; Z87.19 Personal history of other diseases of the digestive system; Z86.718 Personal history of other venous thrombosis and embolism; Z86.711 Personal history of pulmonary embolism; Z95.0 Presence of cardiac pacemaker; Z83.3 Family history of diabetes mellitus; Z82.49 Family history of ischemic heart disease and other diseases of the circulatory system; Z84.1 Family history of disorders of kidney and ureter; Y83.8 Other surgical procedures as the cause of abnormal reaction of the patient, or of later complication, without mention of misadventure at the time of the procedure

== ENCOUNTER 2017-01-15 20:30 | Emergency (ER) | payer OTHER ==
[~2017-01-15] VITALS: Ht 165.1 cm; Wt 93.8 kg
[~2017-01-15 20:30] MED LIST changes: +Boost Nutritional Drink PO; -CARB1CAP8 PO; +CARB200T PO; +CPR500 PO; -DICY10CA55 PO; +DXY100 PO; -FENO145T26 PO; +FENO150C3 PO; +IMD2 PO; -METH-1305 PO; +METO2.5T PO; +MTR500 PO; -ONDA4TAB10 SL; -OXGN
[2017-01-15 20:35] VITALS: TEMP 36.3
[2017-01-15] MEDS ORDERED: SODIUM CHLORIDE 0.9% 1000ML 250 ML IV STA (20:54)
[2017-01-15] MEDS ORDERED: SODIUM CHLORIDE 0.9% 1000ML 1,000 ML IV STA (20:54)
--- NOTE | 2017-01-15 21:04 | EMERGENCY ROOM VISIT NOTE ---
History Report prepared by Juhi: Loretta Miller Under the Supervision of: Dr. Tomás Snowden M.D. First contact with patient: 20:43 Chief Complaint: ABDOMINAL PAIN Stated Complaint: ABSCESS IN STOMACH, SLIGHT FEVER, ABD PAIN LT SIDE History of Present Illness The patient is a 81 year old female who presents to the Emergency Room with complaints of persistent left sided abdominal pain starting this morning. She has worsening pain with palpation. She denies any mass or hernia. She had surgery at [place] about a month ago where her colon was stretched. An abscess was noted and she was placed on Cipro and Flagyl. She was instructed to come to the Emergency Room if she has any abdominal pain. She also started having a low grade fever today. She reports nausea but denies vomiting. She denies any issues with bowel movements. She did not have any recent falls. She denies chest pain, shortness of breath, new urinary symptoms, blood in urine, or any other complaints. She denies any new medications besides the antibiotics. She has a history of pulmonary embolism, DVT, and Factor 5. She is chronically on Lovenox. She has a history of diabetes and her blood sugar level this morning was 141. Source of History: patient, family Onset: this morning Position: abdomen (left sided) Timing: other Modifying Factors (Relieving): other (Cipro and Flagyl) Associated Symptoms: No chest pain, No SOB, No urinary symptoms Review of Systems See HPI for pertinent positives & negatives. A total of 10 systems reviewed and were otherwise negative. Past Medical & Surgical Medical Problems: (1) Diabetes (2) Dizzy spells (3) DVT (deep venous thrombosis) (4) Heart disease (5) History of pulmonary embolism (6) Hypertension (7) Pacemaker (8) Syncope Surgical Problems: (1) H/O: hysterectomy (2) History of partial surgical removal of colon (3) Hx of appendectomy (4) Hx of cholecystectomy Old medical records were reviewed. Nurse's notes were reviewed and I agree with. Family History Cancer Diabetes mellitus Heart disease Hypertension Kidney disease Kidney stones Social History Smoking Status: Never Smoker Alcohol Use: none Drug Use: none Marital Status: Housing Status: lives with family Occupation Status: unemployed Current/Historical Medications Scheduled Ascorbic Acid (Vitamin C), 1,000 MG PO BID Aspirin (Aspirin Ec), 81 MG PO QAM Calcium Carbonate-Cholecalcife (Caltrate 600+D), 1 TAB PO DAILY Carbamazepine (Tegretol), 300 MG PO BID Ciprofloxacin (Ciprofloxacin HCl), 500 MG PO BID Citalopram Hydrobromide (Citalopram Hydrobromide), 10 MG PO QAM Enoxaparin (Enoxaparin Sodium), 60 MG SQ Q12H Fenofibrate (Fenofibrate), 150 MG PO DAILY Fish Oil ([place]-3), 1 CAP PO BID Folic Acid (Folvite), 400 MCG PO QAM Furosemide (Lasix), 60 MG PO QAM Gabapentin (Neurontin), 1,200 MG PO HS Hydroxyurea (Hydrea Cap), 500 MG PO UD Hydroxyurea (Hydroxyurea), 500 MG PO UD Levothyroxine Sodium (Levothyroxine Sodium), 25 MCG PO QAM Metoprolol Tartrate (Lopressor) (Lopressor), 25 MG PO BID Metronidazole (Flagyl), 500 MG PO BID Multiple Vitamins W/ Minerals (Preservision Areds 2), 1 CAP PO BID Niacin (Niacin), 500 MG PO QAM Pantoprazole (Protonix), 40 MG PO QAM Ropinirole (Requip), 3 MG PO HS Ropinirole HCl (Ropinirole HCl), 1 MG PO QAM Rosuvastatin Calcium (Crestor), 5 MG PO QAM Sitagliptin Phosphate (Januvia), 100 MG PO QAM Scheduled PRN Metolazone (Zaroxolyn), 2.5 MG PO DAILY PRN for fluid retention Oxycodone/Acetaminophen 5MG/325MG (Percocet 5MG/325MG), 1 TABLET PO Q4H PRN for Pain Allergies Coded Allergies: Butorphanol (Verified Allergy, Intermediate, HIVES, 01/15/17) Chlorzoxazone (Verified Allergy, Intermediate, HIVES, 01/15/17) Erythromycin (Verified Allergy, Intermediate, HIVES, 01/15/17) Naloxone (Verified Allergy, Intermediate, HIVES, 01/15/17) Nitrofurantoin (Verified Allergy, Intermediate, HIVES, 01/15/17) Pentazocine (Verified Allergy, Intermediate, HIVES, 01/15/17) Diazepam (Verified Adverse Reaction, Unknown, FELLS LIKE CRAWLING UP A WALL, 01/15/17) Physical Exam Vital Signs Date Time Temp Pulse Resp B/P (MAP) Pulse Ox O2 Delivery O2 Flow Rate FiO2 01/15/17 23:09 71 20 151/69 96 Room Air 01/15/17 20:35 36.3 75 20 151/74 95 Room Air Physical Exam General: Non-ill appearing, older female, in no acute distress. HEENT: Normal cephalic atraumatic. Pupils are equal round and reactive to light. Extraocular movements are intact. Oropharynx is pink with moist mucous membranes. No swelling of the mouth lips or tongue. Neck: Supple with a midline trachea. No meningeal signs or stiffness, no JVD or bruits. No Stridor. Chest: Clear to auscultation bilaterally. No wheezes or rhonchi. No increased work of breathing. Heart: regular rate and rhythm. Abdomen: Soft, mildly tender in the left lower quadrant, nondistended without rebound guarding or rigidity. No peritonitis or masses. Extremities: No cyanosis clubbing or edema. No calf tenderness or assymetry Spine/Back. Non tender to palpation. No CVA tenderness Skin: Good turgor without rashes. Neurologic exam: Cranial nerves two through 12 are intact. Motor and sensation are intact and symmetrical throughout. Medical Decision & Procedures ER Provider Diagnostic Interpretation: CT results as stated below per my review and radiologist interpretation: ABDOMEN AND PELVIS CT WITHOUT CONTRAST CT DOSE: 1519.49 mGy.cm HISTORY: eval for obs uropathy, abcess of colon TECHNIQUE: Multiaxial CT images of the abdomen and pelvis were performed without the use of intravenous and oral contrast according to the standard department stone protocol. COMPARISON STUDY: Abdomen and pelvis CT 12/27/2016. FINDINGS: Pacemaker wires are noted. Slight nodularity of the liver surface with enlargement of the lateral segment is again noted. A 2.2 cm right adrenal nodule is unchanged and likely reflects an adenoma. There are multiple water attenuation renal lesions consistent with cysts. There are numerous subcentimeter renal lesions which are too small to characterize. The spleen and pancreas are unremarkable. A left adrenal nodule is unchanged. This is likely benign. An IVC filter is in place. There are findings consistent with a subtotal colectomy. A gas and fluid containing collection adjacent to the anastomosis within the mesentery is not significant changed. This collection 3.1 cm.. There is mild adjacent infiltration which is similar to prior study. There are sigmoid diverticulosis. No suspicious osseous lesions are present. There are no additional fluid collections. Healing nondisplaced fracture at the tip of the right greater trochanter. Old, healed left rib fractures. The bladder remains mildly distended. Persistent asymmetric thickening along the right posterior bladder wall. Mild fullness within the right renal collecting system without adam hydronephrosis. No ureteral calculi identified. IMPRESSION: 1. No significant change in the 3.1 cm abscess adjacent to the ileocolonic anastomosis. Apparent fistulous tract extending from the collection to the anastomosis is again noted. 2. Healing nondisplaced fracture at the tip of the right greater trochanter. 3. No change in the right posterior lateral irregular bladder wall thickening. This could represent a bladder mass. Cystoscopy is recommended for further evaluation. 4. Mild fullness within the right renal collecting system without hydronephrosis. No ureteral calculi identified. 5. Left-sided nephrolithiasis. Electronically signed by: Gregory Roth M.D. 01/15/2017 10:35 PM Dictated Date/Time: 01/15/2017 10:24 PM Laboratory Results 01/15/17 21:15 Red Blood Count 3.28, Mean Corpuscular Volume 107.9, Mean Corpuscular Hemoglobin 37.5, Mean Corpuscular Hemoglobin Concent 34.7, Mean Platelet Volume 10.7, Neutrophils (%) (Auto) 71.9, Lymphocytes (%) (Auto) 16.9, Monocytes (%) ( Auto) 8.0, Eosinophils (%) (Auto) 2.1, Basophils (%) (Auto) 0.1, Neutrophils # ( Auto) 5.09, Lymphocytes # (Auto) 1.20, Monocytes # (Auto) 0.57, Eosinophils # ( Auto) 0.15, Basophils # (Auto) 0.01 01/15/17 21:15 Test 01/15/17 21:12 01/15/17 21:15 01/15/17 21:20 01/15/17 21:40 Urine Color YELLOW Urine Appearance CLEAR (CLEAR) Urine pH 7.0 (4.5-7.5) Urine Specific [place] 1.011 (1.000-1.030) Urine Protein NEG (NEG) Urine Glucose (UA) NEG (NEG) Urine Ketones NEG (NEG) Urine Occult Blood 1+ (NEG) Urine Nitrite NEG (NEG) Urine Bilirubin NEG (NEG) Urine Urobilinogen NEG (NEG) Urine Leukocyte Esterase TRACE (NEG) Urine WBC (Auto) 1-5 /hpf (0-5) Urine RBC (Auto) 5-10 /hpf (0-4) Urine Hyaline Casts (Auto) 1-5 /lpf (0-5) Urine Epithelial Cells (Auto) 0-5 /lpf (0-5) Urine Bacteria (Auto) NEG (NEG) White Blood Count 7.09 K/uL (4.8-10.8) Red Blood Count 3.28 M/uL (4.2-5.4) Hemoglobin 12.3 g/dL (12.0-16.0) Hematocrit 35.4 % (37-47) Mean Corpuscular Volume 107.9 fL (80-100) Mean Corpuscular Hemoglobin 37.5 pg (25-34) Mean Corpuscular Hemoglobin Concent 34.7 g/dl (32-36) Platelet Count 425 K/uL (130-400) Mean Platelet Volume 10.7 fL (7.4-10.4) Neutrophils (%) (Auto) 71.9 % Lymphocytes (%) (Auto) 16.9 % Monocytes (%) (Auto) 8.0 % Eosinophils (%) (Auto) 2.1 % Basophils (%) (Auto) 0.1 % Neutrophils # (Auto) 5.09 K/uL (1.4-6.5) Lymphocytes # (Auto) 1.20 K/uL (1.2-3.4) Monocytes # (Auto) 0.57 K/uL (0.11-0.59) Eosinophils # (Auto) 0.15 K/uL (0-0.5) Basophils # (Auto) 0.01 K/uL (0-0.2) RDW Standard Deviation 59.9 fL (36.4-46.3) RDW Coefficient of Variation 15.2 % (11.5-14.5) Immature Granulocyte % (Auto) 1.0 % Immature Granulocyte # (Auto) 0.07 K/uL (0.00-0.02) Prothrombin Time 11.3 SECONDS (9.0-12.0) Prothromb Time International Ratio 1.1 (0.9-1.1) Activated Partial Thromboplast Time 24.9 SECONDS (21.0-31.0) Partial Thromboplastin Ratio 1.0 Estimated GFR () 73.4 Estimated GFR (Non- 63.4 BUN/Creatinine Ratio 21.5 (10-20) Calcium Level 9.2 mg/dl (8.5-10.1) Total Bilirubin 0.3 mg/dl (0.2-1) Direct Bilirubin 0.1 mg/dl (0-0.2) Aspartate Amino Transf (AST/SGOT) 18 U/L (15-37) Alanine Aminotransferase (ALT/SGPT) 19 U/L (12-78) Alkaline Phosphatase 66 U/L (45-117) Total Protein 7.5 gm/dl (6.4-8.2) Albumin 3.1 gm/dl (3.4-5.0) Lipase 250 U/L (73-393) Carbamazepine (Tegretol) Level 6.2 mcg/ml (4-12) Bedside Lactic Acid Venous 1.71 mmol/L (0.90-1.70) Bedside Hemoglobin 15.3 g/dl (12.0-16.0) Bedside Hematocrit 45 % (37-47) Bedside Sodium 130 mEq/L (135-144) Bedside Potassium 4.5 mEq/L (3.3-5.0) Bedside Chloride 95 mEq/L (101-112) Bedside Total CO2 25 mEq/l (24-31) Anion Gap 16.0 mmol/L (16-25) Bedside Blood Urea Nitrogen 23 mg/dl (7-18) Bedside Creatinine 3.1 mg/dl (0.6-1.3) Bedside Glucose (other) 141 mg/dl (70-99) Bedside Ionized Calcium (Jasmine) 0.96 mmol/l (1.12-1.32) Laboratory studies as stated above per my review. Medications Administered Medications (Trade) Dose Ordered Sig/Tone Route Start Time Stop Time Status Last Admin Dose Admin Sodium Chloride 250 ml @ 999 mls/hr Q16M STAT IV 01/15/17 20:54 01/15/17 21:09 DC 01/15/17 21:27 999 MLS/HR Sodium Chloride 1,000 ml @ 100 mls/hr Q10H STAT IV 01/15/17 20:54 01/16/17 06:53 01/15/17 21:27 100 MLS/HR Piperacillin Sod/ Tazobactam Sod (Zosyn Iv) 4.5 gm NOW STAT IV 01/15/17 23:13 01/15/17 23:14 DC 01/15/17 23:28 4.5 GM ED Course 2042: Past medical records reviewed. The patient was evaluated in room C05, and a complete history and physical examination were performed. 2053: Sodium Chloride 1000 ml @ 100 mls/hr IV, Sodium Chloride 250 ml @ 999 mls/ hr IV 3: Zosyn IV 4.5 gm IV 0: Upon reevaluation, the patient is resting comfortably. I discussed the results and treatment plan with the patient. She verbalized agreement of the treatment plan. I discussed the patient's case with Dr. Diane, flight security specialist with [facility]. The patient will be evaluated for further management at [facility]. Medical Decision Differential diagnosis includes but is not limited to abscess, colitis, divert, UTI, hematoma, electrolyte or metabolic abnormalities. Medication Reconciliation: I attest that I have personally reviewed the patient' s current medication list. Blood pressure Screening: Patient was found to have an elevated blood pressure and was referred to the hospitalist for recheck and further treatment. This patient comes in as described above. She was placed room C5. She is here for treatment and evaluation of left-sided abdominal pain and a low-grade fever. She has a known intra-abdominal abscess and has been on antibiotics for this since approximately December 21. They did manage her conservatively. 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 She's been followed locally by Dr. Laird. The patient looks well on exam and she is afebrile here. IV access established and blood work was obtained. She has no white count or fever. Her lactic acid is not significantly elevated she's been normotensive. Her initial creatinine was elevated markedly at 3.1 however this was done on the i-STAT machine when I checked the lab was normal so the i-STAT is presumed erroneous. In light of that however, I had done the CAT scan without contrast. It shows the abscess still persistent and unchanged. Given the fact that she's had almost a month worth of antibiotics she may need further intervention. I did discuss case with Dr. Omalley, the hospitalist about admitting her . he feels she should go to [place] as they have specialist there and in the previous plan it was discussed that if she had to have any surgery it would be there. They also have interventional radiology which we do not have here. She was given Zosyn 4.[address] g IV. [address] to [address]. Sarah has accepted the patient. The patient will be transferred. I talked the patient and her daughter abd she is a DO NOT RESUSCITATE for the transfer. She was transferred. Consults Time Called: [phone] Consulting Physician: Dr. Diane, flight security specialist with [facility] Returned Call: [phone] I discussed the patient's case with Dr. Diane, flight security specialist with [facility]. Impression Primary Impression: Intra-abdominal abscess Additional Impression: Left lower quadrant pain Scribe Attestation The scribe's documentation has been prepared under my direction and personally reviewed by me in its entirety. I confirm that the note above accurately reflects all work, treatment, procedures, and medical decision making performed by me. Departure Information Dispostion Transfer Acute Care Facility Referrals Yan Randolph (PCP) Patient Instructions My [facility] Problem Qualifiers
[2017-01-15 21:27] LABS: BASO % 0.1 %; BASO ABS # 0.01 K/uL (0-0.2); COMPLETE YES; EOS % 2.1 %; HEMATOCRIT 35.4 % (37-47); LYMPH % 16.9 %; MEAN CELL VOLUME 107.9 fL (80-100); MEAN CORPUSCULAR HEMOGLOBIN 37.5 pg (25-34); MEAN CORPUSCULAR HGB CONC 34.7 g/dl (32-36); MEAN PLATELET VOLUME 10.7 fL (7.4-10.4); NEUT % 71.9 %; PLATELET COUNT 425 K/uL (130-400); RED BLOOD COUNT 3.28 M/uL (4.2-5.4); WHITE BLOOD COUNT 7.09 K/uL (4.8-10.8)
[2017-01-15 21:45] LABS: ALT/SGPT 19 U/L (12-78); BLOOD UREA NITROGEN 19 mg/dl (7-18); BUN/CREATININE RATIO 21.5 (10-20); CARBON DIOXIDE 27 mmol/L (21-32); CHLORIDE 94 mmol/L (98-107); CREATININE 0.87 mg/dl (0.60-1.20); GLUCOSE 130 mg/dl (70-99); POTASSIUM 4.1 mmol/L (3.5-5.1); SODIUM 133 mmol/L (136-145)
[2017-01-15 21:46] LABS: INR 1.1 (0.9-1.1); PROTHROMBIN TIME (PATIENT) 11.3 SECONDS (9.0-12.0)
[2017-01-15 21:48] LABS: ALKALINE PHOSPHATASE 66 U/L (45-117); AST/SGOT 18 U/L (15-37)
[2017-01-15 21:49] LABS: URINE APPEARANCE CLEAR (CLEAR); URINE BILIRUBIN NEG (NEG); URINE COLOR YELLOW; URINE EPITHELIAL CELL AUTO 0-5 /lpf (0-5); URINE NITRITE NEG (NEG); URINE SPECIFIC GRAVITY 1.011 (1.000-1.030); UROBILINOGEN NEG (NEG)
[2017-01-15 21:50] LABS: MANUAL MICROSCOPIC REQUIRED? NO; REVIEW REQ? NO
[2017-01-15 21:52] LABS: ISTAT CREATININE 3.1 mg/dl (0.6-1.3); ISTAT HEMOGLOBIN 15.3 g/dl (12.0-16.0); ISTAT IONIZED CALCIUM 0.96 mmol/l (1.12-1.32)
[2017-01-15 21:53] LABS: CALCIUM 9.2 mg/dl (8.5-10.1)
[2017-01-15] MEDS ORDERED: METR-163 PO (22:27)
--- NOTE | 2017-01-15 22:36 | DIAGNOSTIC IMAGING REPORT ---
ABDOMEN AND PELVIS CT WITHOUT CONTRAST CT DOSE: 1519.49 mGy.cm HISTORY: eval for obs uropathy, abcess of colon TECHNIQUE: Multiaxial CT images of the abdomen and pelvis were performed without the use of intravenous and oral contrast according to the standard department stone protocol. COMPARISON STUDY: Abdomen and pelvis CT 12/27/2016. FINDINGS: Pacemaker wires are noted. Slight nodularity of the liver surface with enlargement of the lateral segment is again noted. A 2.2 cm right adrenal nodule is unchanged and likely reflects an adenoma. There are multiple water attenuation renal lesions consistent with cysts. There are numerous subcentimeter renal lesions which are too small to characterize. The spleen and pancreas are unremarkable. A left adrenal nodule is unchanged. This is likely benign. An IVC filter is in place. There are findings consistent with a subtotal colectomy. A gas and fluid containing collection adjacent to the anastomosis within the mesentery is not significant changed. This collection 3.1 cm.. There is mild adjacent infiltration which is similar to prior study. There are sigmoid diverticulosis. No suspicious osseous lesions are present. There are no additional fluid collections. Healing nondisplaced fracture at the tip of the right greater trochanter. Old, healed left rib fractures. The bladder remains mildly distended. Persistent asymmetric thickening along the right posterior bladder wall. Mild fullness within the right renal collecting system without adam hydronephrosis. No ureteral calculi identified. IMPRESSION: 1. No significant change in the 3.1 cm abscess adjacent to the ileocolonic anastomosis. Apparent fistulous tract extending from the collection to the anastomosis is again noted. 2. Healing nondisplaced fracture at the tip of the right greater trochanter. 3. No change in the right posterior lateral irregular bladder wall thickening. This could represent a bladder mass. Cystoscopy is recommended for further evaluation. 4. Mild fullness within the right renal collecting system without hydronephrosis. No ureteral calculi identified. 5. Left-sided nephrolithiasis. Electronically signed by: Gregory Roth M.D. 01/15/2017 10:35 PM Dictated Date/Time: 01/15/2017 10:24 PM
[2017-01-15] MEDS ORDERED: PIPERACILLIN/TAZOBACTAM 4.5 GM/100ML D5W IV STA (23:13)
[2017-01-15 23:38] VITALS: Ht 165.1 cm; Wt 93.8 kg
[2017-01-16] MEDS ORDERED: ONDANSETRON INJ 2 MG/ML 2 ML VIAL IV STA (01:07)
[2017-01-16 01:30] VITALS: BP 153/69; PULSE 73; O2SAT 96
[2017-02-24] MEDS ORDERED: METH-1305 PO (14:14)
== END 2017-01-16 01:50 | disposition short-term general hospital (02) ==
LOC: C.EDB 20:33
DX: K65.1 Peritoneal abscess (principal); R10.32 Left lower quadrant pain; D68.51 Activated protein C resistance; E11.9 Type 2 diabetes mellitus without complications; I10 Essential (primary) hypertension; Z86.711 Personal history of pulmonary embolism; Z86.718 Personal history of other venous thrombosis and embolism; Z79.01 Long term (current) use of anticoagulants; Z79.82 Long term (current) use of aspirin; Z95.0 Presence of cardiac pacemaker; Z90.710 Acquired absence of both cervix and uterus; Z83.3 Family history of diabetes mellitus; Z82.49 Family history of ischemic heart disease and other diseases of the circulatory system; Z84.1 Family history of disorders of kidney and ureter

== ENCOUNTER → 2017-02-16 | Outpatient (CLI) | payer OTHER ==
[~2017-02-16] MED LIST changes: -Boost Nutritional Drink PO; +CEFT1INJ57 IV; -DXY100 PO; -IMD2 PO; +METH1TAB5 PO; +METR-163 PO; -MTR500 PO
== END | disposition home or self-care (01) ==
LOC: C.LABSPEC 10:51
PROVIDERS: ATTEND Urology
DX: R31.0 Gross hematuria (principal); N39.0 Urinary tract infection, site not specified

== ENCOUNTER 2017-02-24 12:25 | Inpatient (IN) | payer OTHER ==
[~2017-02-24] VITALS: Ht 165.1 cm; Wt 91.0 kg
[~2017-02-24 12:25] MED LIST changes: -CEFT1INJ57 IV; -METH1TAB5 PO
[2017-02-24] MEDS ORDERED: SODIUM CHLORIDE 0.9% 1000ML 1,000 ML IV STA (12:47)
[2017-02-24] MEDS ORDERED: ACETAMINOPHEN 500 MG TAB PO STA (13:00)
--- NOTE | 2017-02-24 13:11 | DIAGNOSTIC IMAGING REPORT ---
CHEST ONE VIEW PORTABLE CLINICAL HISTORY: Weakness. Fever. COMPARISON STUDY: Chest radiograph December 23, 2016. FINDINGS: A dual lead left pacemaker is unchanged in position. No pneumothorax or pleural effusion is identified. There is no evidence of pulmonary edema. Mild cardiomegaly is unchanged. A 1.1 cm right mid to upper lung nodular density likely reflects normal pulmonary vessels. IMPRESSION: 1. No acute cardiopulmonary findings. 2. 1.1 cm right lung nodular density. This likely reflects summation of normal pulmonary vessels. Nonemergent PA and shallow oblique chest radiographs are recommended to exclude a pulmonary nodule. Electronically signed by: Chalo Posadas M.D. 02/24/2017 1:09 PM Dictated Date/Time: 02/24/2017 1:07 PM
[2017-02-24 13:38] LABS: URINE APPEARANCE CLEAR (CLEAR); URINE BILIRUBIN NEG (NEG); URINE COLOR YELLOW; URINE NITRITE NEG (NEG); URINE PH 6.5 (4.5-7.5); URINE SPECIFIC GRAVITY 1.014 (1.000-1.030); UROBILINOGEN NEG (NEG)
[2017-02-24 13:44] LABS: MANUAL MICROSCOPIC REQUIRED? NO; REVIEW REQ? NO
[2017-02-24 14:00] LABS: BASO % 0.1 %; BASO ABS # 0.01 K/uL (0-0.2); COMPLETE YES; EOS % 1.3 %; HEMATOCRIT 37.5 % (37-47); LYMPH % 11.3 %; LYMPH ABS # 0.92 K/uL (1.2-3.4); MEAN CELL VOLUME 108.4 fL (80-100); MEAN CORPUSCULAR HEMOGLOBIN 36.7 pg (25-34); MEAN CORPUSCULAR HGB CONC 33.9 g/dl (32-36); MEAN PLATELET VOLUME 11.2 fL (7.4-10.4); MONO % 6.6 %; NEUT % 79.7 %; PLATELET COUNT 421 K/uL (130-400); RED BLOOD COUNT 3.46 M/uL (4.2-5.4); WHITE BLOOD COUNT 8.15 K/uL (4.8-10.8)
[2017-02-24 14:12] LABS: INR 1.1 (0.9-1.1); PARTIAL THROMBOPLASTIN RATIO 1.2; PROTHROMBIN TIME (PATIENT) 11.9 SECONDS (9.0-12.0)
[2017-02-24] MEDS ORDERED: METH1TAB5 PO (14:14)
[2017-02-24] MEDS ORDERED: FRS/40 PO (14:14)
[2017-02-24 14:21] LABS: ALT/SGPT 14 U/L (12-78); AST/SGOT 8 U/L (15-37); BLOOD UREA NITROGEN 27 mg/dl (7-18); BUN/CREATININE RATIO 24.7 (10-20); CALCIUM 9.2 mg/dl (8.5-10.1); CARBON DIOXIDE 29 mmol/L (21-32); CHLORIDE 100 mmol/L (98-107); GLUCOSE 124 mg/dl (70-99); MAGNESIUM 2.1 mg/dl (1.8-2.4); POTASSIUM 4.4 mmol/L (3.5-5.1); SODIUM 135 mmol/L (136-145)
[2017-02-24 14:55] LABS: ALKALINE PHOSPHATASE 54 U/L (45-117); THYROID STIMULATING HORMONE 0.986 uIu/ml (0.300-4.500)
[2017-02-24] MEDS ORDERED: OPTIRAY 320 IV PRN (15:45)
--- NOTE | 2017-02-24 15:48 | DIAGNOSTIC IMAGING REPORT ---
HEAD WITHOUT CONTRAST (CT) CLINICAL HISTORY: 81 years-old Female with Headache, on lovenox, sinus congestion, fever TECHNIQUE: Multiple axial CT images of the head were obtained without contrast. A dose lowering technique was utilized adhering to the principles of ALARA. CT DOSE: 741.55 mGycm COMPARISON: 12/21/2016. FINDINGS: No acute intracranial hemorrhage, midline shift, mass, large territorial ischemia or abnormal extra-axial collection. There is moderate vertebral atrophy. There is minimal periventricular white matter low-attenuation suggesting a degree of chronic microvascular ischemic changes. The calvarium is intact. The mastoid air cells, and middle ear cavities are clear. Rightward deviation of the nasal septum with unchanged focal area of soft tissue prominence within the right nares measuring 2.3 x 0.8 cm. Mild ethmoid sinus disease is noted. There is nonspecific 5 mm area of low attenuation involving the right occipital calvarium, unchanged from comparison seen on image 14 of the axial series. Soft tissues are unremarkable. There is evidence of prior bilateral cataract repair. IMPRESSION: 1. No acute intracranial abnormality. 2. Rightward deviation of the nasal septum with unchanged focal area of soft tissue prominence within the right nares measuring 2.3 x 0.8 cm. Correlate with direct visualization to exclude sinonasal polyp. The above report was generated using voice recognition software. It may contain grammatical, syntax or spelling errors. Electronically signed by: Jorgito Tubbs M.D. 02/24/2017 3:46 PM Dictated Date/Time: 02/24/2017 3:40 PM
--- NOTE | 2017-02-24 15:54 | DIAGNOSTIC IMAGING REPORT ---
CT OF THE ABDOMEN AND PELVIS WITH CONTRAST CLINICAL HISTORY: Abdominal pain and fever. Prior ileocolic anastomosis. Abscess. COMPARISON STUDY: CT of the abdomen and pelvis January 15, 2017. TECHNIQUE: Following IV administration of Optiray-320, axial images of the abdomen and pelvis were obtained from the lung bases to the proximal femurs. Images were reviewed in the axial, sagittal, and coronal planes. IV contrast was administered without complication. A dose lowering technique was utilized adhering to the principles of ALARA. Oral contrast was administered. CT DOSE: 941.80 mGycm FINDINGS: Slight nodularity of the liver surface is unchanged. Bilateral adrenal nodules are unchanged. These are likely benign. Numerous water attenuation renal lesions reflect cysts. There is no biliary or hepatic ductal dilatation. The spleen is mildly enlarged. This is unchanged. There is no pneumatosis, free air or portal venous gas. An IVC filter is in place. There are postoperative findings consistent with a subtotal colectomy with ileocolonic anastomosis. A gas and fluid containing 3.4 cm collection adjacent to the ileocolonic anastomosis has slightly increased in size since CT of January 15, 2017 when it measured 3.1 cm. Apparent fistulous tract extending from the collection to the anastomosis is again noted. Hyperdense material within this tract suggests surgical material. There is mild adjacent infiltration. This collection contains no oral contrast. No additional fluid collections are present. This extensive sigmoid diverticulosis without evidence for acute diverticulitis. There is persistent asymmetric right lateral bladder wall thickening. Injection granulomas are noted within the anterior abdominal wall subcutaneous tissues. IMPRESSION: 1. Minimal increase in size of a 3.5 cm abscess adjacent to the ileocolonic anastomosis. Fistulous tract extending from the collection to the anastomosis is again noted. 2. No bowel obstruction. 3. Numerous additional incidental findings within the abdomen and pelvis which are similar to prior exams. 4. Persistent asymmetric right lateral bladder wall thickening. This is nonspecific and a urothelial lesion cannot be excluded. Correlation with cystoscopy if not recently performed, is recommended. Electronically signed by: Chalo Posadas M.D. 02/24/2017 3:53 PM Dictated Date/Time: 02/24/2017 3:40 PM
[2017-02-24] MEDS ORDERED: PIPERACILLIN/TAZOBACTAM 4.5 GM/100ML D5W IV STA (17:47)
[2017-02-24] MEDS ORDERED: ONDANSETRON INJ 2 MG/ML 2 ML VIAL IV PRN (18:15)
[2017-02-24] MEDS ORDERED: HYDROmorphone INJ 0.5 MG/0.5 ML SYR IV PRN (18:15)
[2017-02-24] MEDS ORDERED: PIPERACILL/TAZOBAC CONSULT ACTIVE PRN (18:30)
--- NOTE | 2017-02-24 18:36 | History and Physical ---
History & Physical Date & Time of Service: Feb 24, 2017 at 18:36 Chief Complaint: Fever, Diarrhea, Headache, Dizzy Primary Care Physician: Yan Randolph History of Present Illness Source: patient this is a 81 yo F with complex past medical hx of Factor 5 leiden , hx of DVT/ PE s/p IVC filter placement , on chronic anticoagulation with Lovenox, HTN , Type 2 DM , Hypothyroidism , TIA , Seizure disorder , hx of Hemicolectomy due to GI bleed pt was in ER of [facility] on 01/15/17 for left lower quadrant abdominal pain CT abdomen shows gas and fluid collection ( abscess ) adjacent to ileocolic anastomosis measuring 3.4 cm pt was transferred to [facility] , underwent IR guided drainage of 5 ml fluid Surgery team consulted , no surgical intervention done initially treated with Cipro/Flagyl Culture specimen form drainage -E coli -ESBL -resistant to Cipro /Gentamicin / Levaquin sensitive to Ampicillin , Cefepime , Zosyn later transitioned to PO Augmentin for 10 days on Discharge at home pt did well Had Follow up CT abdomen /pelvis done on 01/30/17 Showed : Stable overall size of the ileocolic area predominately fluid containing abscess/collection, measuring 3.4 x 2.4 x 3.3 cm. There is interval decrease in the gas component. Stable appearance of the fistulous tract to the anastomosis. for the past 2-3 days pt developed left sided abdominal pain , associated with diarrhea . blood in stool no nausea , no fever or chills appetite in poor , associated with generalized weakness in ER CT abdomen /pelvis shows persisted left sided abscess , Past Medical/Surgical History Medical Problems: (1) Diabetes Status: Chronic (2) DVT (deep venous thrombosis) Status: Resolved (3) Heart disease Status: Chronic (4) Hypertension Status: Chronic (5) Pacemaker Status: Chronic Family History Cancer Diabetes mellitus Heart disease Hypertension Kidney disease Kidney stones Social History Smoking Status: Never Smoker Drug Use: none Marital Status: Housing status: lives with family Occupational Status: unemployed Allergies Coded Allergies: Butorphanol (Verified Allergy, Intermediate, HIVES, 01/15/17) Chlorzoxazone (Verified Allergy, Intermediate, HIVES, 01/15/17) Erythromycin (Verified Allergy, Intermediate, HIVES, 01/15/17) Naloxone (Verified Allergy, Intermediate, HIVES, 01/15/17) Nitrofurantoin (Verified Allergy, Intermediate, HIVES, 01/15/17) Pentazocine (Verified Allergy, Intermediate, HIVES, 01/15/17) Diazepam (Verified Adverse Reaction, Unknown, FELLS LIKE CRAWLING UP A WALL, 01/15/17) Home Medications Scheduled Ascorbic Acid (Vitamin C), 1,000 MG PO BID Aspirin (Aspirin Ec), 81 MG PO QAM Calcium Carbonate-Cholecalcife (Caltrate 600+D), 1 TAB PO DAILY Carbamazepine (Tegretol), 300 MG PO BID Citalopram Hydrobromide (Citalopram Hydrobromide), 10 MG PO QAM Enoxaparin (Enoxaparin Sodium), 60 MG SQ Q12H Fenofibrate (Fenofibrate), 150 MG PO DAILY Fish Oil (Alta-3), 1 CAP PO BID Folic Acid (Folvite), 400 MCG PO QAM Furosemide (Lasix), 40 MG PO DAILY Gabapentin (Neurontin), 1,200 MG PO HS Hydroxyurea (Hydrea Cap), 500 MG PO UD Hydroxyurea (Hydroxyurea), 500 MG PO UD Levothyroxine Sodium (Levothyroxine Sodium), 25 MCG PO QAM Methenamine Hippurate (Methenamine Hippurate), 1 GM PO BID Metoprolol Tartrate (Lopressor) (Lopressor), 25 MG PO BID Multiple Vitamins W/ Minerals (Preservision Areds 2), 1 CAP PO BID Niacin (Niacin), 500 MG PO QAM Pantoprazole (Protonix), 40 MG PO QAM Ropinirole (Requip), 3 MG PO HS Ropinirole HCl (Ropinirole HCl), 1 MG PO QAM Rosuvastatin Calcium (Crestor), 5 MG PO QAM Sitagliptin Phosphate (Januvia), 100 MG PO QAM Scheduled PRN Metolazone (Zaroxolyn), 2.5 MG PO DAILY PRN for fluid retention Oxycodone/Acetaminophen 5MG/325MG (Percocet 5MG/325MG), 1 TABLET PO Q4H PRN for Pain Review of Systems Constitutional: + weakness, + fatigue, No fever, No chills, No sweats, No weight loss Respiratory: + cough, + shortness of breath Cardiovascular: + edema (chronic ) Abdomen: + pain, + diarrhea, + GI bleeding Musculoskeletal: + joint pain, + muscle pain Genitourinary - Female: + urinary frequency, + hematuria Endocrine: + fatigue Physical Exam Vital Signs Date Time Temp Pulse Resp B/P (MAP) Pulse Ox O2 Delivery O2 Flow Rate FiO2 02/24/17 17:31 147/60 02/24/17 17:30 73 20 97 Room Air 02/24/17 15:47 72 20 119/60 97 Room Air 02/24/17 14:05 76 18 152/61 97 Room Air 02/24/17 12:30 36.8 63 20 145/71 96 Room Air General Appearance: no apparent distress Head: normocephalic, atraumatic Eyes: normal inspection, sclerae normal Neck: supple, no adenopathy, no JVD Respiratory/Chest: chest non-tender, lungs clear, normal breath sounds, no respiratory distress Cardiovascular: regular rate, rhythm, no JVD Abdomen/GI: soft, + pertinent finding (left lower quadrant tenderness, no rebound , active bowel sound ) Extremities/Musculoskelatal: + pedal edema (+ 2 ) Neurologic/Psych: no motor/sensory deficits, alert, oriented x 3 Diagnostics Laboratory Results Results Past 24 Hours Test 02/24/17 13:05 02/24/17 13:40 02/24/17 13:46 Range/Units Urine Color YELLOW Urine Appearance CLEAR CLEAR Urine pH 6.5 4.5-7.5 Urine Specific [place] 1.014 1.000-1.030 Urine Protein TRACE NEG Urine Glucose (UA) NEG NEG Urine Ketones NEG NEG Urine Occult Blood 2+ NEG Urine Nitrite NEG NEG Urine Bilirubin NEG NEG Urine Urobilinogen NEG NEG Urine Leukocyte Esterase TRACE NEG Urine WBC (Auto) 1-5 0-5 /hpf Urine RBC (Auto) >30 0-4 /hpf Urine Hyaline Casts (Auto) 1-5 0-5 /lpf Urine Epithelial Cells (Auto) 5-10 0-5 /lpf Urine Bacteria (Auto) NEG NEG White Blood Count 8.15 4.8-10.8 K/uL Red Blood Count 3.46 4.2-5.4 M/uL Hemoglobin 12.7 12.0-16.0 g/dL Hematocrit 37.5 37-47 % Mean Corpuscular Volume 108.4 80-100 fL Mean Corpuscular Hemoglobin 36.7 25-34 pg Mean Corpuscular Hemoglobin Concent 33.9 32-36 g/dl Platelet Count 421 130-400 K/uL Mean Platelet Volume 11.2 7.4-10.4 fL Neutrophils (%) (Auto) 79.7 % Lymphocytes (%) (Auto) 11.3 % Monocytes (%) (Auto) 6.6 % Eosinophils (%) (Auto) 1.3 % Basophils (%) (Auto) 0.1 % Neutrophils # (Auto) 6.49 1.4-6.5 K/uL Lymphocytes # (Auto) 0.92 1.2-3.4 K/uL Monocytes # (Auto) 0.54 0.11-0.59 K/uL Eosinophils # (Auto) 0.11 0-0.5 K/uL Basophils # (Auto) 0.01 0-0.2 K/uL RDW Standard Deviation 61.1 36.4-46.3 fL RDW Coefficient of Variation 15.5 11.5-14.5 % Immature Granulocyte % (Auto) 1.0 % Immature Granulocyte # (Auto) 0.08 0.00-0.02 K/uL Prothrombin Time 11.9 9.0-12.0 SECONDS Prothromb Time International Ratio 1.1 0.9-1.1 Activated Partial Thromboplast Time 31.5 21.0-31.0 SECONDS Partial Thromboplastin Ratio 1.2 Sodium Level 135 136-145 mmol/L Potassium Level 4.4 3.5-5.1 mmol/L Chloride Level 100 98-107 mmol/L Carbon Dioxide Level 29 21-32 mmol/L Anion Gap 6.0 3-11 mmol/L Blood Urea Nitrogen 27 7-18 mg/dl Creatinine 1.10 0.60-1.20 mg/dl Est Creatinine Clear Calc Drug Dose 46.2 ml/min Estimated GFR () 55.3 Estimated GFR (Non- 47.7 BUN/Creatinine Ratio 24.7 10-20 Random Glucose 124 70-99 mg/dl Calcium Level 9.2 8.5-10.1 mg/dl Magnesium Level 2.1 1.8-2.4 mg/dl Total Bilirubin 0.4 0.2-1 mg/dl Direct Bilirubin 0.2 0-0.2 mg/dl Aspartate Amino Transf (AST/SGOT) 8 15-37 U/L Alanine Aminotransferase (ALT/SGPT) 14 12-78 U/L Alkaline Phosphatase 54 45-117 U/L Total Creatine Kinase 26 26-192 U/L Creatine Kinase MB < 0.5 0.5-3.6 ng/ml Creatine Kinase MB Ratio 0-3.0 Troponin I < 0.015 0-0.045 ng/ml Total Protein 8.3 6.4-8.2 gm/dl Albumin 3.4 3.4-5.0 gm/dl Lipase 207 73-393 U/L Thyroid Stimulating Hormone (TSH) 0.986 0.300-4.500 uIu/ml Carbamazepine (Tegretol) Level 11.9 4-12 mcg/ml Bedside Lactic Acid Venous 1.32 0.90-1.70 mmol/L Microbiology Results 02/24/17 Blood Culture, Received Pending 02/24/17 Blood Culture, Received Pending Diagnostic Radiology CT ABDOMEN /PELVIS WITH CONTRAST : 1. Minimal increase in size of a 3.5 cm abscess adjacent to the ileocolonic anastomosis. Fistulous tract extending from the collection to the anastomosis is again noted. 2. No bowel obstruction. 3. Numerous additional incidental findings within the abdomen and pelvis which are similar to prior exams. 4. Persistent asymmetric right lateral bladder wall thickening. This is nonspecific and a urothelial lesion cannot be excluded. Correlation with cystoscopy if not recently performed, is recommended. CT HEAD WITH OUT CONTRAST : 1. No acute intracranial abnormality. 2. Rightward deviation of the nasal septum with unchanged focal area of soft tissue prominence within the right nares measuring 2.3 x 0.8 cm. Correlate with direct visualization to exclude sinonasal polyp. The above report was generated using voice recognition software. It may contain grammatical, syntax or spelling errors. Impression Assessment and Plan ABDOMINAL PAIN /RECURRENT ABSCESS : recurrent/non healing abscess at illio colic anastomotic site recent tx at [facility] with IR drainage Ct abdomen shows slight increase in Size of Abscess no sign of sepsis or peritonitis normal WBC, afebrile , vitals stable admit to Medical floor IV Zosyn ( recent abscess drainage culture -E Coli) sensitive to Zosyn ID eval requested blood and urine culture ordered Surgery consulted , ER spoke with automation manager surgery team pt will be kept NPO till surgery eval DIARRHEA /GI BLEED : having ongoing diarrhea past 1-2 days with blood in stool stool c diff and culture ordered in ER stool for heme occult ordered hx of recurrent GI bleed , with multiple colonoscopy in past NPO with sips of water and ice chips IV PPI ordered H&H stable in 12 follow Lovenox kept on hold till surgery eval for abdominal abscess HEMATURIA /BLADDER WALL IRREGULARITIES : urology consulted UA shows + 2 occult blood ; > 30 RBC ordered for urine culture 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 asked to hold Lovenox for abdominal abscess /possible GI bleed /Hematuria TYPE 2 DM : hold Januvia insulin SSI ordered HX OF SEIZURE DISORDER : no recent Sz activity Tegretol on hold for NPO status TIA : no residual deficit hold Aspirin for blood in stool , hematuria complained of headache in admission -no symptom at present CT head negative for CVA PERIPHERAL NEUROPATHY : Neurontin on hold HYPOTHYROIDISM hold levothyroxine RESTLESS LEG SYNDROME : Requip on hold DNR /DNI: code status D/w pt has living will DVT PROPHYLAXIS : high risk for DVT Lovenox on hold -for possible surgical intervention SCD and TEDS ordered Lovenox will be resumed when no surgical indication DISPOSITION : expected to be discharged home when medically stable PT/OT eval will be done prior to discharge Level of Care Med/Surg Advanced Directives Existing Advance Directive: Yes Existing Living Will: Yes Resuscitation Status DO NOT RESUSCITATE VTE Prophylaxis VTE Risk Assessment Done? Y/N: Yes Risk Level: High Given or contraindicated: Desmond Stockings, SCD's Additional Copies To Anabel Laird M.D.
[2017-02-24] MEDS ORDERED: SODIUM CHLORIDE 0.9% 1000ML 1,000 ML IV SCH (18:45)
[2017-02-24] MEDS ORDERED: DEXTROSE 50% 50 ML SYR IV PRN (18:45)
[2017-02-24] MEDS ORDERED: GLUCOSE 40% GEL 15 GM TUBE PO PRN (18:45)
[2017-02-24] MEDS ORDERED: GLUCOSE 10 TABS/TUBE PO PRN (18:45)
[2017-02-24] MEDS ORDERED: GLUCAGON FOR INJ 1 MG VIAL SQ PRN (18:45)
--- NOTE | 2017-02-24 19:55 | EMERGENCY ROOM VISIT NOTE ---
History Report prepared by Juhi: Ortega Dickson Under the Supervision of: Dr. Apollo Sequeira M.D. First contact with patient: 12:36 Chief Complaint: FEVER Stated Complaint: FEVER, DIARRHEA, HEADACHE, DIZZY History of Present Illness The patient is a 81 year old female who presents to the Emergency Room with complaints of a constant headache beginning three days ago. She currently rates her discomfort a 10/10 in severity. The patient states that her symptoms started with a fever, nausea, headache, congestion, ear ache, knee pain, lower back pain, and a cold. The patient reports that rest is the only thing that helps her headache, and she has been sleeping a lot more lately. She states that she slept with the window open the other night, and she believes that is what caused her symptoms. The patient notes that her coughing has caused her chest to have discomfort. She states that yesterday she developed left lower quadrant abdominal pain and diarrhea. The patient reports that she currently has diverticulitis and an abscess to the left lower quadrant of her abdomen from anastomosis. She notes that she was treated with antibiotics because the abscess was could not be drained secondary to its location. The patient states that she had a CT scan within the last month that showed the abscess did not respond to the antibiotics. She reports that she has not taken antibiotics for the past week, and she denies a history of C-Diff. The patient notes that she currently takes Lovenox for a history of blood clots, and it causes her to have occasional hematochezia. Pt denies LOC, chills, diaphoresis, visual changes, neck pain, breathing difficulties, vomiting, melena, non-base line hematochezia , urinary symptoms, numbness, weakness, lymphadenopathy, rash, or other complaints. Source of History: patient Onset: three day ago Position: head Symptom Intensity: 10/10 Quality: ache Timing: constant Modifying Factors (Relieving): rest Associated Symptoms: + fevers, + cough, + chest pain, + nausea, + abdominal pain, + back pain, + diarrhea Note: Associated symptoms: congestion, ear ache, knee pain, cold, sleeping more frequently Review of Systems See HPI for pertinent positives and negatives. A total of ten systems were reviewed and were otherwise negative. Past Medical & Surgical Medical Problems: (1) Abdominal abscess (2) Abdominal pain (3) Diabetes (4) Dizzy spells (5) DVT (deep venous thrombosis) (6) Heart disease (7) History of pulmonary embolism (8) Hypertension (9) Pacemaker (10) Syncope Surgical Problems: (1) H/O: hysterectomy (2) History of partial surgical removal of colon (3) Hx of appendectomy (4) Hx of cholecystectomy Family History Cancer Diabetes mellitus Heart disease Hypertension Kidney disease Kidney stones Social History Smoking Status: Never Smoker Alcohol Use: none Drug Use: none Marital Status: Housing Status: lives with family Occupation Status: unemployed Current/Historical Medications Scheduled Ascorbic Acid (Vitamin C), 1,000 MG PO BID Aspirin (Aspirin Ec), 81 MG PO QAM Calcium Carbonate-Cholecalcife (Caltrate 600+D), 1 TAB PO DAILY Carbamazepine (Tegretol), 300 MG PO BID Citalopram Hydrobromide (Citalopram Hydrobromide), 10 MG PO QAM Enoxaparin (Enoxaparin Sodium), 60 MG SQ Q12H Fenofibrate (Fenofibrate), 150 MG PO DAILY Fish Oil ([place]-3), 1 CAP PO BID Folic Acid (Folvite), 400 MCG PO QAM Furosemide (Lasix), 40 MG PO DAILY Gabapentin (Neurontin), 1,200 MG PO HS Hydroxyurea (Hydrea Cap), 500 MG PO UD Hydroxyurea (Hydroxyurea), 500 MG PO UD Levothyroxine Sodium (Levothyroxine Sodium), 25 MCG PO QAM Methenamine Hippurate (Methenamine Hippurate), 1 GM PO BID Metoprolol Tartrate (Lopressor) (Lopressor), 25 MG PO BID Multiple Vitamins W/ Minerals (Preservision Areds 2), 1 CAP PO BID Niacin (Niacin), 500 MG PO QAM Pantoprazole (Protonix), 40 MG PO QAM Ropinirole (Requip), 3 MG PO HS Ropinirole HCl (Ropinirole HCl), 1 MG PO QAM Rosuvastatin Calcium (Crestor), 5 MG PO QAM Sitagliptin Phosphate (Januvia), 100 MG PO QAM Scheduled PRN Metolazone (Zaroxolyn), 2.5 MG PO DAILY PRN for fluid retention Oxycodone/Acetaminophen 5MG/325MG (Percocet 5MG/325MG), 1 TABLET PO Q4H PRN for Pain Allergies Coded Allergies: Butorphanol (Verified Allergy, Intermediate, HIVES, 01/15/17) Chlorzoxazone (Verified Allergy, Intermediate, HIVES, 01/15/17) Erythromycin (Verified Allergy, Intermediate, HIVES, 01/15/17) Naloxone (Verified Allergy, Intermediate, HIVES, 01/15/17) Nitrofurantoin (Verified Allergy, Intermediate, HIVES, 01/15/17) Pentazocine (Verified Allergy, Intermediate, HIVES, 01/15/17) Diazepam (Verified Adverse Reaction, Unknown, FELLS LIKE CRAWLING UP A WALL, 01/15/17) Physical Exam Vital Signs Date Time Temp Pulse Resp B/P (MAP) Pulse Ox O2 Delivery O2 Flow Rate FiO2 02/24/17 19:00 72 18 137/56 96 Room Air 02/24/17 17:31 147/60 02/24/17 17:30 73 20 97 Room Air 02/24/17 15:47 72 20 119/60 97 Room Air 02/24/17 14:05 76 18 152/61 97 Room Air 02/24/17 12:30 36.8 63 20 145/71 96 Room Air Physical Exam GENERAL: Awake, alert, well-appearing, in no distress HENT: Normocephalic, atraumatic. Oropharynx unremarkable. TMs clear. EYES: Normal conjunctiva. Sclera non-icteric. Pupils have been surgically altered, EOMI NECK: Supple. No nuchal rigidity. FROM. No JVD. RESPIRATORY: Clear to auscultation. CARDIAC: Regular rate, normal rhythm. Extremities warm and well perfused. Pulses equal. ABDOMEN: Mild right lower quadrant tenderness to palpation. Moderate left lower quadrant tender to palpation with guarding. RECTAL: Deferred. MUSCULOSKELETAL: Chest examination reveals no tenderness. The back is symmetrical on inspection without obvious abnormality. There is left CVA tenderness to palpation. No joint edema. LOWER EXTREMITIES: Calves are equal size bilaterally and non-tender. 1+ pedal edema. No discoloration. NEURO: Normal sensorium. No sensory or motor deficits noted. SKIN: No rash or jaundice noted. Medical Decision & Procedures ER Provider Diagnostic Interpretation: Radiology results as stated below per my review and radiologist interpretation: CHEST ONE VIEW PORTABLE CLINICAL HISTORY: Weakness. Fever. COMPARISON STUDY: Chest radiograph December 23, 2016. FINDINGS: A dual lead left pacemaker is unchanged in position. No pneumothorax or pleural effusion is identified. There is no evidence of pulmonary edema. Mild cardiomegaly is unchanged. A 1.1 cm right mid to upper lung nodular density likely reflects normal pulmonary vessels. IMPRESSION: 1. No acute cardiopulmonary findings. 2. 1.1 cm right lung nodular density. This likely reflects summation of normal pulmonary vessels. Nonemergent PA and shallow oblique chest radiographs are recommended to exclude a pulmonary nodule. Electronically signed by: Chalo Posadas M.D. 02/24/2017 1:09 PM Dictated Date/Time: 02/24/2017 1:[address] OF THE ABDOMEN AND PELVIS WITH CONTRAST CLINICAL HISTORY: Abdominal pain and fever. Prior ileocolic anastomosis. Abscess. COMPARISON STUDY: CT of the abdomen and pelvis January 15, 2017. TECHNIQUE: Following IV administration of Optiray-320, axial images of the abdomen and pelvis were obtained from the lung bases to the proximal femurs. Images were reviewed in the axial, sagittal, and coronal planes. IV contrast was administered without complication. A dose lowering technique was utilized adhering to the principles of ALARA. Oral contrast was administered. CT DOSE: 941.80 mGycm FINDINGS: Slight nodularity of the liver surface is unchanged. Bilateral adrenal nodules are unchanged. These are likely benign. Numerous water attenuation renal lesions reflect cysts. There is no biliary or hepatic ductal dilatation. The spleen is mildly enlarged. This is unchanged. There is no pneumatosis, free air or portal venous gas. An IVC filter is in place. There are postoperative findings consistent with a subtotal colectomy with ileocolonic anastomosis. A gas and fluid containing 3.4 cm collection adjacent to the ileocolonic anastomosis has slightly increased in size since CT of January 15, 2017 when it measured 3.1 cm. Apparent fistulous tract extending from the collection to the anastomosis is again noted. Hyperdense material within this tract suggests surgical material. There is mild adjacent infiltration. This collection contains no oral contrast. No additional fluid collections are present. This extensive sigmoid diverticulosis without evidence for acute diverticulitis. There is persistent asymmetric right lateral bladder wall thickening. Injection granulomas are noted within the anterior abdominal wall subcutaneous tissues. IMPRESSION: 1. Minimal increase in size of a 3.5 cm abscess adjacent to the ileocolonic anastomosis. Fistulous tract extending from the collection to the anastomosis is again noted. 2. No bowel obstruction. 3. Numerous additional incidental findings within the abdomen and pelvis which are similar to prior exams. 4. Persistent asymmetric right lateral bladder wall thickening. This is nonspecific and a urothelial lesion cannot be excluded. Correlation with cystoscopy if not recently performed, is recommended. Electronically signed by: Chalo oPsadas M.D. 02/24/2017 3:53 PM Dictated Date/Time: 02/24/2017 3:40 PM HEAD WITHOUT CONTRAST (CT) CLINICAL HISTORY: 81 years-old Female with Headache, on lovenox, sinus congestion, fever TECHNIQUE: Multiple axial CT images of the head were obtained without contrast. A dose lowering technique was utilized adhering to the principles of ALARA. CT DOSE: 741.55 mGycm COMPARISON: 12/21/2016. FINDINGS: No acute intracranial hemorrhage, midline shift, mass, large territorial ischemia or abnormal extra-axial collection. There is moderate vertebral atrophy. There is minimal periventricular white matter low-attenuation suggesting a degree of chronic microvascular ischemic changes. The calvarium is intact. The mastoid air cells, and middle ear cavities are clear. Rightward deviation of the nasal septum with unchanged focal area of soft tissue prominence within the right nares measuring 2.3 x 0.8 cm. Mild ethmoid sinus disease is noted. There is nonspecific 5 mm area of low attenuation involving the right occipital calvarium, unchanged from comparison seen on image 14 of the axial series. Soft tissues are unremarkable. There is evidence of prior bilateral cataract repair. IMPRESSION: 1. No acute intracranial abnormality. 2. Rightward deviation of the nasal septum with unchanged focal area of soft tissue prominence within the right nares measuring 2.3 x 0.8 cm. Correlate with direct visualization to exclude sinonasal polyp. The above report was generated using voice recognition software. It may contain grammatical, syntax or spelling errors. Electronically signed by: Jorgito Tubbs M.D. 02/24/2017 3:46 PM Dictated Date/Time: 02/24/2017 3:40 PM Laboratory Results 02/24/17 13:40 Red Blood Count 3.46, Mean Corpuscular Volume 108.4, Mean Corpuscular Hemoglobin 36.7, Mean Corpuscular Hemoglobin Concent 33.9, Mean Platelet Volume 11.2, Neutrophils (%) (Auto) 79.7, Lymphocytes (%) (Auto) 11.3, Monocytes (%) ( Auto) 6.6, Eosinophils (%) (Auto) 1.3, Basophils (%) (Auto) 0.1, Neutrophils # ( Auto) 6.49, Lymphocytes # (Auto) 0.92, Monocytes # (Auto) 0.54, Eosinophils # ( Auto) 0.11, Basophils # (Auto) 0.01 02/24/17 13:40 Test 02/24/17 13:05 02/24/17 13:40 02/24/17 13:46 Urine Color YELLOW Urine Appearance CLEAR (CLEAR) Urine pH 6.5 (4.5-7.5) Urine Specific [place] 1.014 (1.000-1.030) Urine Protein TRACE (NEG) Urine Glucose (UA) NEG (NEG) Urine Ketones NEG (NEG) Urine Occult Blood 2+ (NEG) Urine Nitrite NEG (NEG) Urine Bilirubin NEG (NEG) Urine Urobilinogen NEG (NEG) Urine Leukocyte Esterase TRACE (NEG) Urine WBC (Auto) 1-5 /hpf (0-5) Urine RBC (Auto) >30 /hpf (0-4) Urine Hyaline Casts (Auto) 1-5 /lpf (0-5) Urine Epithelial Cells (Auto) 5-10 /lpf (0-5) Urine Bacteria (Auto) NEG (NEG) White Blood Count 8.15 K/uL (4.8-10.8) Red Blood Count 3.46 M/uL (4.2-5.4) Hemoglobin 12.7 g/dL (12.0-16.0) Hematocrit 37.5 % (37-47) Mean Corpuscular Volume 108.4 fL (80-100) Mean Corpuscular Hemoglobin 36.7 pg (25-34) Mean Corpuscular Hemoglobin Concent 33.9 g/dl (32-36) Platelet Count 421 K/uL (130-400) Mean Platelet Volume 11.2 fL (7.4-10.4) Neutrophils (%) (Auto) 79.7 % Lymphocytes (%) (Auto) 11.3 % Monocytes (%) (Auto) 6.6 % Eosinophils (%) (Auto) 1.3 % Basophils (%) (Auto) 0.1 % Neutrophils # (Auto) 6.49 K/uL (1.4-6.5) Lymphocytes # (Auto) 0.92 K/uL (1.2-3.4) Monocytes # (Auto) 0.54 K/uL (0.11-0.59) Eosinophils # (Auto) 0.11 K/uL (0-0.5) Basophils # (Auto) 0.01 K/uL (0-0.2) RDW Standard Deviation 61.1 fL (36.4-46.3) RDW Coefficient of Variation 15.5 % (11.5-14.5) Immature Granulocyte % (Auto) 1.0 % Immature Granulocyte # (Auto) 0.08 K/uL (0.00-0.02) Prothrombin Time 11.9 SECONDS (9.0-12.0) Prothromb Time International Ratio 1.1 (0.9-1.1) Activated Partial Thromboplast Time 31.5 SECONDS (21.0-31.0) Partial Thromboplastin Ratio 1.2 Anion Gap 6.0 mmol/L (3-11) Est Creatinine Clear Calc Drug Dose 46.2 ml/min Estimated GFR () 55.3 Estimated GFR (Non- 47.7 BUN/Creatinine Ratio 24.7 (10-20) Calcium Level 9.2 mg/dl (8.5-10.1) Magnesium Level 2.1 mg/dl (1.8-2.4) Total Bilirubin 0.4 mg/dl (0.2-1) Direct Bilirubin 0.2 mg/dl (0-0.2) Aspartate Amino Transf (AST/SGOT) 8 U/L (15-37) Alanine Aminotransferase (ALT/SGPT) 14 U/L (12-78) Alkaline Phosphatase 54 U/L (45-117) Total Creatine Kinase 26 U/L (26-192) Creatine Kinase MB < 0.5 ng/ml (0.5-3.6) Creatine Kinase MB Ratio (0-3.0) Troponin I < 0.015 ng/ml (0-0.045) Total Protein 8.3 gm/dl (6.4-8.2) Albumin 3.4 gm/dl (3.4-5.0) Lipase 207 U/L (73-393) Thyroid Stimulating Hormone (TSH) 0.986 uIu/ml (0.300-4.500) Carbamazepine (Tegretol) Level 11.9 mcg/ml (4-12) Bedside Lactic Acid Venous 1.32 mmol/L (0.90-1.70) Laboratory results reviewed by me Medications Administered Medications (Trade) Dose Ordered Sig/Tone Route Start Time Stop Time Status Last Admin Dose Admin Sodium Chloride 1,000 ml @ 125 mls/hr Q8H STAT IV 02/24/17 12:47 02/24/17 20:46 02/24/17 14:04 125 MLS/HR Acetaminophen (Tylenol Tab) 1,000 mg NOW STAT PO 02/24/17 13:00 02/24/17 13:01 DC 02/24/17 13:54 1,000 MG Piperacillin Sod/ Tazobactam Sod (Zosyn Iv) 4.5 gm NOW STAT IV 02/24/17 17:47 02/24/17 17:49 DC 02/24/17 18:31 4.5 GM ECG Indication: chest pain Rate (beats per minute): 64 Rhythm: other (Paced rhythm) Findings: no acute ischemic change, no ectopy ED Course 1245: I reviewed old patient records. 1252: The patient was evaluated in room C08. A complete history and physical exam was performed. 1247: Ordered Sodium Chloride 1000 ml @ 125 mls/hr IV 1300: Ordered Tylenol Tab 1000 mg PO 1500: I reevaluated the patient, and she is feeling better. 1747: Ordered Zosyn IV 4.5 gm IV 1801: I discussed the patient's case with Dr. Draper, [facility]. The patient will be evaluated for further treatment. She requested that I contact Dr. Casiano, General Surgery and let him know about the patient's case. 1814: I discussed the patient's case with Dr. Casiano, General Surgery. He agrees with conservative management. Medical Decision Triage Nursing notes reviewed. The patient's presentation and history were concerning for abdominal pain, fever , headache, diarrhea, and history of intra-abdominal abscess. Etiologies such as injury abdominal abscess, diverticulitis, colitis, viral syndrome, otitis, pharyngitis, pneumonia, urinary tract infection, sepsis, bacteremia, meningitis, as well as others were entertained. The patient was evaluated. She was tender in the left lower quadrant. She did not have any significant complaints of neck pain and had no meningeal findings. She was currently afebrile. Blood work and imaging were performed. The patient had an unremarkable CBC and chemistry panel. Urinalysis did show some blood. I did review this with the patient. Chest x-ray revealed no evidence of acute process. Her chemistry panel showed some mild dehydration. The patient was hydrated. CT scan of the head revealed no evidence of intracranial bleeding. This was performed as she is on anticoagulation and complained of headache. Nasal polyp was noted. On nasal examination she had some deviation of the septum. There was unclear about the etiology of this polyp and the patient will be ENT follow-up. I did discuss this with the patient. CT imaging of the abdomen and pelvis with contrast did reveal a slight increase in the size of the intra-abdominal abscess. IV Zosyn was ordered. On discussion with the patient and her daughter they noted the abscess was not amenable to interventional radiology treatment and she was treated conservatively with IV antibiotics and oral antibiotics on her last transfer to [facility]. She prefers to stay here and avoid transfer if possible. I did consult with Dr. Corinne Draper of the [facility] service. We discussed the case. She will evaluate the patient in the Emergency Room for further management. She did ask for me to notify Dr. Casiano surgery. I did so. He agreed with conservative management at this point in time as the patient does not have a surgical abdomen and has no signs of sepsis. Medication Reconcilliation Current Medication List: was personally reviewed by me Blood Pressure Screening Patient's blood pressure: Elevated blood pressure Blood pressure disposition: Referred to PCP Consults Time Called: 1750 Consulting Physician: Dr. Draper [facility] Returned Call: [phone] I discussed the patient's case with Dr. Draper [facility]. The patient will be evaluated for further treatment. She requested that I contact Dr. Casiano, General Surgery and let him know about the patient's case. Additional Consults: Time Called: 1803 Consulted Physician: Dr. Casiano, General Surgery Returned Call: [phone] Additional Comments: I discussed the patient's case with Dr. Casiano General Surgery. He agrees with conservative management. Impression Primary Impression: Intra-abdominal abscess Additional Impression: Flu-like symptoms Scribe Attestation The scribe's documentation has been prepared under my direction and personally reviewed by me in its entirety. I confirm that the note above accurately reflects all work, treatment, procedures, and medical decision making performed by me. Departure Information Dispostion Being Evaluated By Hospitalist Referrals No Doctor, Assigned (PCP) Patient Instructions [facility] Problem Qualifiers
[2017-02-24 20:04] VITALS: BP 161/79; PULSE 71; TEMP 37.2; O2SAT 94; Ht 165.1 cm; Wt 91.0 kg
[2017-02-24] MEDS ORDERED: INSULIN HUMAN REGULAR SC SCH (21:00)
[2017-02-24] MEDS: PANTOprazole INJ 40 MG in SYRINGE 0 ML IV SCH (21:07)
[2017-02-24 22:30] VITALS: O2SAT 94
[2017-02-24 23:01] VITALS: BP 149/65; PULSE 76; TEMP 37.1; O2SAT 97
[2017-02-25] MEDS: PIPERACILL/TAZOBAC IV 3.375 GM in DEXTROSE 5% 100ML 100 ML IV SCH ×3 (02:50→18:54)
[2017-02-25] MEDS ORDERED: NURSING VERBAL MED ORDER ONE ×3 (03:15→13:00)
[2017-02-25] MEDS ORDERED: INSULIN HUMAN REGULAR SC SCH (06:00)
[2017-02-25 07:25] VITALS: BP 138/74; PULSE 75; TEMP 37.1; O2SAT 98
--- NOTE | 2017-02-25 08:59 | Progress Note ---
Internal Med Progress Note Date of Service: Feb 25, 2017. Provider Documentation: SUBJECTIVE: feels much better today left lower quadrant abdominal pain has resolved, no nausea did not had any diarrhea or blood in stool last night no fever or chills feels hungry OBJECTIVE: Vital Signs-as noted below Exam: General-no sign of distress, comfortable Eyes-sclera non icteric ENT-NAD Neck-no JVD Lungs-CTA , no rales or wheeze Heart-regular S1/S2; _ 1-2 bilat lower ext edema Abdomen-soft, no tenderness noted on left lower quadrant on palpation , bowel sound active Extremities-no rash or deformity Neuro-AAO x3, no focal deficit Lab data as noted below. ASSESSMENT & PLAN: ABDOMINAL PAIN /RECURRENT ABSCESS : -symptom improved today , no pain or discomfort, no nausea diarrhea has resolved -no temp spike ordered for Clear liquid diet , awaiting Surgery input hx of recurrent/non healing abscess at [facility] coli anastomotic site recent tx at [facility] with IR drainage Ct abdomen shows slight increase in Size of Abscess no sign of sepsis or peritonitis normal WBC, afebrile , vitals stable started on IV Zosyn ( recent abscess drainage culture -E Coli) sensitive to Zosyn ID eval requested blood and urine culture ordered Surgery consulted awaiting eval DIARRHEA /GI BLEED : resolved stool c diff and culture ordered stool for heme occult ordered hx of recurrent GI bleed , with multiple colonoscopy in past/GI eval requested started on clears changed PPI ot PO HEMATURIA /BLADDER WALL IRREGULARITIES : urology consulted UA shows + 2 occult blood ; > 30 RBC ordered for urine culture 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 resumed Lovenox as no acute abdomen process is assess in AM exam can be on hold if any evidence of active bleeding noted TYPE 2 DM : hold Januvia insulin SSI ordered HX OF SEIZURE DISORDER : no recent Sz activity Tegretol resumed TIA : no residual deficit resumed Aspirin complained of headache in admission -no symptom at present CT head negative for CVA PERIPHERAL NEUROPATHY : Neurontin resumed HYPOTHYROIDISM levothyroxine resumed RESTLESS LEG SYNDROME : Requip resumed DNR /DNI: code status D/w pt has living will DVT PROPHYLAXIS : high risk for DVT Lovenox resumed DISPOSITION : expected to be discharged home when medically stable PT/OT eval ordered Vital Signs: Date Time Temp Pulse Resp B/P (MAP) Pulse Ox O2 Delivery O2 Flow Rate FiO2 02/25/17 07:25 37.1 75 20 138/74 (95) 98 Nasal Cannula 2.0 02/24/17 23:40 Nasal Cannula 2.0 02/24/17 23:01 37.1 76 18 149/65 (93) 97 Nasal Cannula 2.0 02/24/17 22:30 94 Room Air 02/24/17 20:04 94 Room Air 02/24/17 20:04 37.2 71 16 161/79 02/24/17 19:54 73 20 154/62 95 02/24/17 19:00 72 18 137/56 96 Room Air 02/24/17 17:31 147/60 02/24/17 17:30 73 20 97 Room Air 02/24/17 15:47 72 20 119/60 97 Room Air 02/24/17 14:05 76 18 152/61 97 Room Air 02/24/17 12:30 36.8 63 20 145/71 96 Room Air Lab Results: Results Past 24 Hours Test 02/24/17 13:05 02/24/17 13:40 02/24/17 13:46 02/24/17 21:44 Range/Units Urine Color YELLOW Urine Appearance CLEAR CLEAR Urine pH 6.5 4.5-7.5 Urine Specific Bee 1.014 1.000-1.030 Urine Protein TRACE NEG Urine Glucose (UA) NEG NEG Urine Ketones NEG NEG Urine Occult Blood 2+ NEG Urine Nitrite NEG NEG Urine Bilirubin NEG NEG Urine Urobilinogen NEG NEG Urine Leukocyte Esterase TRACE NEG Urine WBC (Auto) 1-5 0-5 /hpf Urine RBC (Auto) >30 0-4 /hpf Urine Hyaline Casts (Auto) 1-5 0-5 /lpf Urine Epithelial Cells (Auto) 5-10 0-5 /lpf Urine Bacteria (Auto) NEG NEG White Blood Count 8.15 4.8-10.8 K/uL Red Blood Count 3.46 4.2-5.4 M/uL Hemoglobin 12.7 12.0-16.0 g/dL Hematocrit 37.5 37-47 % Mean Corpuscular Volume 108.4 80-100 fL Mean Corpuscular Hemoglobin 36.7 25-34 pg Mean Corpuscular Hemoglobin Concent 33.9 32-36 g/dl Platelet Count 421 130-400 K/uL Mean Platelet Volume 11.2 7.4-10.4 fL Neutrophils (%) (Auto) 79.7 % Lymphocytes (%) (Auto) 11.3 % Monocytes (%) (Auto) 6.6 % Eosinophils (%) (Auto) 1.3 % Basophils (%) (Auto) 0.1 % Neutrophils # (Auto) 6.49 1.4-6.5 K/uL Lymphocytes # (Auto) 0.92 1.2-3.4 K/uL Monocytes # (Auto) 0.54 0.11-0.59 K/uL Eosinophils # (Auto) 0.11 0-0.5 K/uL Basophils # (Auto) 0.01 0-0.2 K/uL RDW Standard Deviation 61.1 36.4-46.3 fL RDW Coefficient of Variation 15.5 11.5-14.5 % Immature Granulocyte % (Auto) 1.0 % Immature Granulocyte # (Auto) 0.08 0.00-0.02 K/uL Prothrombin Time 11.9 9.0-12.0 SECONDS Prothromb Time International Ratio 1.1 0.9-1.1 Activated Partial Thromboplast Time 31.5 21.0-31.0 SECONDS Partial Thromboplastin Ratio 1.2 Sodium Level 135 136-145 mmol/L Potassium Level 4.4 3.5-5.1 mmol/L Chloride Level 100 98-107 mmol/L Carbon Dioxide Level 29 21-32 mmol/L Anion Gap 6.0 3-11 mmol/L Blood Urea Nitrogen 27 7-18 mg/dl Creatinine 1.10 0.60-1.20 mg/dl Est Creatinine Clear Calc Drug Dose 46.2 ml/min Estimated GFR () 55.3 Estimated GFR (Non- 47.7 BUN/Creatinine Ratio 24.7 10-20 Random Glucose 124 70-99 mg/dl Calcium Level 9.2 8.5-10.1 mg/dl Magnesium Level 2.1 1.8-2.4 mg/dl Total Bilirubin 0.4 0.2-1 mg/dl Direct Bilirubin 0.2 0-0.2 mg/dl Aspartate Amino Transf (AST/SGOT) 8 15-37 U/L Alanine Aminotransferase (ALT/SGPT) 14 12-78 U/L Alkaline Phosphatase 54 45-117 U/L Total Creatine Kinase 26 26-192 U/L Creatine Kinase MB < 0.5 0.5-3.6 ng/ml Creatine Kinase MB Ratio 0-3.0 Troponin I < 0.015 0-0.045 ng/ml Total Protein 8.3 6.4-8.2 gm/dl Albumin 3.4 3.4-5.0 gm/dl Lipase 207 73-393 U/L Thyroid Stimulating Hormone (TSH) 0.986 0.300-4.500 uIu/ml Carbamazepine (Tegretol) Level 11.9 4-12 mcg/ml Bedside Lactic Acid Venous 1.32 0.90-1.70 mmol/L Bedside Glucose 128 70-90 mg/dl Test 02/25/17 05:49 02/25/17 07:04 02/25/17 08:37 Range/Units Bedside Glucose 133 70-90 mg/dl Estimated Average Glucose 103 mg/dl Hemoglobin A1c 5.2 4.5-5.6 % Microbiology Results 02/24/17 Blood Culture, Received Pending 02/24/17 Blood Culture, Received Pending 02/24/17 C.difficile Toxin B Gene (PCR) - Final, Complete No C. difficile toxin B gene detected 02/24/17 Shiga Toxin Test, Received Pending 02/24/17 Stool Culture, Received Pending 02/24/17 Urine Culture, Received Pending
[2017-02-25 09:03] LABS: ESTIMATED AVERAGE GLUCOSE 103 mg/dl; HA1C FLAG Normal (Normal)
[2017-02-25] MEDS: PANTOprazole INJ 40 MG in SYRINGE 0 ML IV SCH ×2 (09:12→21:03)
[2017-02-25] MEDS ORDERED: METOLAZONE 2.5 MG TAB PO PRN (09:15)
[2017-02-25 09:58] LABS: HEMATOCRIT 34.1 % (37-47); MEAN CELL VOLUME 108.3 fL (80-100); MEAN CORPUSCULAR HEMOGLOBIN 36.2 pg (25-34); MEAN PLATELET VOLUME 9.5 fL (7.4-10.4); PLATELET COUNT 347 K/uL (130-400); RED BLOOD COUNT 3.15 M/uL (4.2-5.4); WHITE BLOOD COUNT 5.62 K/uL (4.8-10.8)
[2017-02-25 10:17] LABS: MEAN CORPUSCULAR HGB CONC 33.4 g/dl (32-36)
[2017-02-25 10:30] LABS: BUN/CREATININE RATIO 20.2 (10-20); CALCIUM 8.7 mg/dl (8.5-10.1); CREATININE 0.91 mg/dl (0.60-1.20)
[2017-02-25 10:33] LABS: ALB/GLOB RATIO 0.7 (0.9-2)
[2017-02-25] MEDS: ENOXAPARIN 60 MG/0.6 ML SYR SQ SCH ×2 (10:58→22:00)
--- NOTE | 2017-02-25 11:15 | Urology Consultation ---
History General Date of Service: Feb 25, 2017. Primary Care Physician: Yan Randolph Pt seen a urologist before?: Yes If yes, why?: Hematuria History of Present Illness Patient is a 81-year-old white female who was admitted to the hospital with an intra-abdominal abscess. She was noted to have microscopic hematuria. She also had a CT scan which showed some thickening of the right posterior bladder wall. We are asked to see the patient for hematuria. Patient says she's been voiding fine and her urine has been yellow. She just saw Dr. Padilla in our office on February 16. In reviewing her prior records the lesion in the bladder was biopsied in August 2016 pathology report showed no evidence of malignancy. In reviewing her prior CT scans the lesion in question on the CT has been present on multiple scans since September 2016. She has also had negative urine cytologies. Laboratory Date/Time Source Procedure Growth Status 02/24/17 13:40 Blood Blood Culture Pending Received 02/24/17 13:30 Blood Blood Culture Pending Received 02/24/17 21:15 Stool C.difficile Toxin B Gene (PCR) - Final No C. difficile toxin B gene detected Complete 02/24/17 21:15 Stool Shiga Toxin Test Pending Received 02/24/17 21:15 Stool Stool Culture Pending Received 02/24/17 21:15 Urine , Clean Catch Urine Culture Pending Received Last Vital Signs Documentation Date Time Temp Pulse Resp B/P (MAP) Pulse Ox O2 Delivery O2 Flow Rate FiO2 02/25/17 07:25 37.1 75 20 138/74 (95) 98 Nasal Cannula 2.0 Last 24 Hours Test 02/24/17 13:05 02/24/17 13:40 02/24/17 13:46 02/24/17 21:44 Urine Color YELLOW Urine Appearance CLEAR Urine pH 6.5 Urine Specific [place] 1.014 Urine Protein TRACE Urine Glucose (UA) NEG Urine Ketones NEG Urine Occult Blood 2+ Urine Nitrite NEG Urine Bilirubin NEG Urine Urobilinogen NEG Urine Leukocyte Esterase TRACE Urine WBC (Auto) 1-5 /hpf Urine RBC (Auto) >30 /hpf Urine Hyaline Casts (Auto) 1-5 /lpf Urine Epithelial Cells (Auto) 5-10 /lpf Urine Bacteria (Auto) NEG White Blood Count 8.15 K/uL Red Blood Count 3.46 M/uL Hemoglobin 12.7 g/dL Hematocrit 37.5 % Mean Corpuscular Volume 108.4 fL Mean Corpuscular Hemoglobin 36.7 pg Mean Corpuscular Hemoglobin Concent 33.9 g/dl Platelet Count 421 K/uL Mean Platelet Volume 11.2 fL Neutrophils (%) (Auto) 79.7 % Lymphocytes (%) (Auto) 11.3 % Monocytes (%) (Auto) 6.6 % Eosinophils (%) (Auto) 1.3 % Basophils (%) (Auto) 0.1 % Neutrophils # (Auto) 6.49 K/uL Lymphocytes # (Auto) 0.92 K/uL Monocytes # (Auto) 0.54 K/uL Eosinophils # (Auto) 0.11 K/uL Basophils # (Auto) 0.01 K/uL RDW Standard Deviation 61.1 fL RDW Coefficient of Variation 15.5 % Immature Granulocyte % (Auto) 1.0 % Immature Granulocyte # (Auto) 0.08 K/uL Prothrombin Time 11.9 SECONDS Prothromb Time International Ratio 1.1 Activated Partial Thromboplast Time 31.5 SECONDS Partial Thromboplastin Ratio 1.2 Sodium Level 135 mmol/L Potassium Level 4.4 mmol/L Chloride Level 100 mmol/L Carbon Dioxide Level 29 mmol/L Anion Gap 6.0 mmol/L Blood Urea Nitrogen 27 mg/dl Creatinine 1.10 mg/dl Est Creatinine Clear Calc Drug Dose 46.2 ml/min Estimated GFR () 55.3 Estimated GFR (Non- 47.7 BUN/Creatinine Ratio 24.7 Random Glucose 124 mg/dl Calcium Level 9.2 mg/dl Magnesium Level 2.1 mg/dl Total Bilirubin 0.4 mg/dl Direct Bilirubin 0.2 mg/dl Aspartate Amino Transf (AST/SGOT) 8 U/L Alanine Aminotransferase (ALT/SGPT) 14 U/L Alkaline Phosphatase 54 U/L Total Creatine Kinase 26 U/L Creatine Kinase MB < 0.5 ng/ml Creatine Kinase MB Ratio Troponin I < 0.015 ng/ml Total Protein 8.3 gm/dl Albumin 3.4 gm/dl Lipase 207 U/L Thyroid Stimulating Hormone (TSH) 0.986 uIu/ml Carbamazepine (Tegretol) Level 11.9 mcg/ml Bedside Lactic Acid Venous 1.32 mmol/L Bedside Glucose 128 mg/dl Test 02/25/17 05:49 02/25/17 07:04 02/25/17 09:08 02/25/17 09:43 Bedside Glucose 133 mg/dl 149 mg/dl Estimated Average Glucose 103 mg/dl Hemoglobin A1c 5.2 % White Blood Count 5.62 K/uL Red Blood Count 3.15 M/uL Hemoglobin 11.4 g/dL Hematocrit 34.1 % Mean Corpuscular Volume 108.3 fL Mean Corpuscular Hemoglobin 36.2 pg Mean Corpuscular Hemoglobin Concent 33.4 g/dl RDW Standard Deviation 59.5 fL RDW Coefficient of Variation 15.3 % Platelet Count 347 K/uL Mean Platelet Volume 9.5 fL Sodium Level 137 mmol/L Potassium Level 4.0 mmol/L Chloride Level 105 mmol/L Carbon Dioxide Level 28 mmol/L Anion Gap 4.0 mmol/L Blood Urea Nitrogen 18 mg/dl Creatinine 0.91 mg/dl Est Creatinine Clear Calc Drug Dose 55.9 ml/min Estimated GFR () 69.5 Estimated GFR (Non- 60.0 BUN/Creatinine Ratio 20.2 Random Glucose 136 mg/dl Calcium Level 8.7 mg/dl Total Bilirubin 0.4 mg/dl Aspartate Amino Transf (AST/SGOT) 9 U/L Alanine Aminotransferase (ALT/SGPT) 12 U/L Alkaline Phosphatase 48 U/L Total Protein 7.1 gm/dl Albumin 2.8 gm/dl Globulin 4.3 gm/dl Albumin/Globulin Ratio 0.7 Problem List Medical Problems: (1) Acute urinary retention Status: Acute (2) Bladder mass Status: Acute (3) Current use of mcfp anticoagulation Status: Acute (4) Dehydration Status: Acute (5) Flu-like symptoms Status: Acute (6) Hematuria Status: Acute (7) Hematuria Status: Acute (8) History of DVT of lower extremity Status: Acute (9) Intra-abdominal abscess Status: Acute (10) Intra-abdominal abscess Status: Acute (11) Intractable nausea and vomiting Status: Acute (12) Left lower quadrant pain Status: Acute (13) Nausea, vomiting, and diarrhea Status: Acute (14) UTI (urinary tract infection) Status: Acute (15) Weak Status: Acute Family History Cancer Diabetes mellitus Heart disease Hypertension Kidney disease Kidney stones Social History Hx Tobacco Use In Past Year?: No Marital status: Housing status: lives with family Occupation status: unemployed Allergies Coded Allergies: Butorphanol (Verified Allergy, Intermediate, HIVES, 01/15/17) Chlorzoxazone (Verified Allergy, Intermediate, HIVES, 01/15/17) Erythromycin (Verified Allergy, Intermediate, HIVES, 01/15/17) Naloxone (Verified Allergy, Intermediate, HIVES, 01/15/17) Nitrofurantoin (Verified Allergy, Intermediate, HIVES, 01/15/17) Pentazocine (Verified Allergy, Intermediate, HIVES, 01/15/17) Diazepam (Verified Adverse Reaction, Unknown, FELLS LIKE CRAWLING UP A WALL, 01/15/17) Medications Home Medications: Home Meds and Scripts Medications Dose Route/Sig Max Daily Dose Days Date Category Dose Instructions Methenamine Hippurate 1 Gm Tab 1 Gm PO BID 02/24/17 Reported Lasix (Furosemide) 40 Mg Tab 40 Mg PO DAILY 02/24/17 Reported Percocet 5MG/325MG (Oxycodone/Acetaminophen) Tab 1 Tablet PO Q4H PRN 12/31/16 Rx PAIN Tegretol (Carbamazepine) 200 Mg Tab 300 Mg PO BID 12/21/16 Reported Zaroxolyn (Metolazone) 2.5 Mg Tab 2.5 Mg PO DAILY PRN 12/21/16 Reported Fenofibrate 150 Mg Cap 150 Mg PO DAILY 12/21/16 Reported Enoxaparin Sodium (Enoxaparin) 60 Mg/0.6 Ml Inj 60 Mg SQ Q12H 30 10/15/16 Rx continue per home medication regimen Niacin 500 Mg Tab 500 Mg PO QAM 10/08/16 Reported Hydroxyurea 500 Mg Cap 500 Mg PO UD 10/08/16 Reported TAKE 500 MG TID ON MONDAY, MONDAY, AND MONDAY. Caltrate 600+D (Calcium Carbonate-Cholecalcife) 1 Tab Tab 1 Tab PO DAILY 10/08/16 Reported Requip (Ropinirole HCl) 1 Mg Tab 3 Mg PO HS 10/06/16 Reported Vitamin C (Ascorbic Acid) 1,000 Mg Tab 1,000 Mg PO BID 10/06/16 Reported Aspirin Ec (Aspirin) 81 Mg Tab 81 Mg PO QAM 08/27/16 Reported [place]-3 (Fish Oil) 1 Ea Cap 1 Cap PO BID 08/27/16 Reported Citalopram Hydrobromide 10 Mg Tab 10 Mg PO QAM 08/27/16 Reported Preservision Areds 2 (Multiple Vitamins W/ Minerals) 1 Cap Cap 1 Cap PO BID 08/27/16 Reported Levothyroxine Sodium 25 Mcg Tab 25 Mcg PO QAM 08/27/16 Reported Neurontin (Gabapentin) 300 Mg Cap 1,200 Mg PO HS 08/27/16 Reported Ropinirole HCl 1 Mg Tab 1 Mg PO QAM 08/27/16 Reported Crestor (Rosuvastatin Calcium) 5 Mg Tab 5 Mg PO QAM 08/27/16 Reported Folvite (Folic Acid) 1 Mg Tab 400 Mcg PO QAM 08/27/16 Reported Hydrea Cap (Hydroxyurea) 500 Mg Cap 500 Mg PO UD 08/27/16 Reported TAKE 500 MG BID ON MONDAY, MONDAY, MONDAY, AND MONDAY. Protonix (Pantoprazole Sodium) 40 Mg Tab 40 Mg PO QAM 08/27/16 Reported Lopressor (Metoprolol Tartrate) 25 Mg Tab 25 Mg PO BID 08/27/16 Reported Januvia (Sitagliptin Phosphate) 100 Mg Tab 100 Mg PO QAM 08/27/16 Reported Inpatient Medications: Current Inpatient Medications Medications (Trade) Dose Ordered Sig/Tone Route Start Time Stop Time Status Last Admin Dose Admin Ioversol (Optiray 320) 111 ml UD PRN IV 02/24/17 15:45 02/28/17 15:44 Ondansetron HCl (Zofran Inj) 4 mg Q6H PRN IV 02/24/17 18:15 03/26/17 18:14 Piperacillin Sod/ Tazobactam Sod 3.375 gm/Dextrose 115 ml @ 28.75 mls/ hr Q8@0200,1000,1800 IV 02/25/17 02:00 03/07/17 01:59 02/25/17 09:17 28.75 MLS/HR Hydromorphone HCl (Dilaudid Inj) 0.5 mg Q3HWA PRN IV 02/24/17 18:15 03/10/17 18:14 Piperacillin Sod/ Tazobactam Sod (Consult) 1 ea UD PRN N/A 02/24/17 18:30 03/26/17 18:29 Glucose (Glucose 40% Gel) 15-30 GRAMS 15 GRAMS... UD PRN PO 02/24/17 18:45 03/26/17 18:44 Glucose (Glucose Chew Tab) 4-8 Tablets 4 Tabl... UD PRN PO 02/24/17 18:45 03/26/17 18:44 Dextrose (Dextrose 50% 50ML Syringe) 25-50ML OF 50% DW IV FOR... UD PRN IV 02/24/17 18:45 03/26/17 18:44 Glucagon (Glucagon Inj) 1 mg UD PRN SQ 02/24/17 18:45 03/26/17 18:44 Pantoprazole Sodium 40 mg/ Syringe 10 ml @ 5 mls/min DAILY@ IV 02/24/17 21:00 03/26/17 20:59 02/25/17 09:12 5 MLS/MIN Aspirin (Ecotrin Tab) 81 mg QAM PO 02/26/17 09:00 03/28/17 08:59 Carbamazepine (Tegretol Tab) 300 mg BID PO 02/25/17 21:00 03/27/17 20:59 Enoxaparin Sodium (Lovenox Inj) 60 mg Q12H SQ 02/25/17 10:30 03/27/17 10:29 02/25/17 10:58 60 MG Fish Oil ([place]-3 (Purified Fish Oil) Cap) 1 gm BID PO 02/25/17 21:00 03/27/17 20:59 Folic Acid (Folvite Tab) 400 mcg QAM PO 02/26/17 09:00 03/28/17 08:59 Furosemide (Lasix Tab) 40 mg DAILY PO 02/26/17 09:00 03/28/17 08:59 Gabapentin (Neurontin Tab) 1,200 mg HS PO 02/25/17 21:00 03/27/17 20:59 Hydroxyurea (Hydrea Cap) 500 mg MoThSa@0900,1400,2100 PO 02/25/17 14:00 03/27/17 13:59 Hydroxyurea (Hydrea Cap) 500 mg SuTuWeFr@0900,2100 PO 02/26/17 09:00 03/28/17 08:59 Levothyroxine Sodium (Synthroid Tab) 25 mcg DAILYBB PO 02/26/17 06:00 03/28/17 05:59 Methenamine Hippurate (Urex Tab) 1 gm BID PO 02/25/17 21:00 03/07/17 20:59 Metolazone (Zaroxolyn Tab) 2.5 mg DAILY PRN PO 02/25/17 09:15 03/27/17 09:14 Metoprolol Tartrate (Lopressor Tab) 25 mg BID PO 02/25/17 21:00 03/27/17 20:59 Niacin (Niacin Tab) 500 mg QAM PO 02/26/17 09:00 03/28/17 08:59 Oxycodone/ Acetaminophen (Percocet 5-325mg Tab) 1 tab Q4H PRN PO 02/25/17 09:15 03/11/17 09:14 Ropinirole HCl (Requip Tab) 3 mg HS PO 02/25/17 21:00 03/27/17 20:59 Ropinirole HCl (Requip Tab) 1 mg QAM PO 02/26/17 09:00 03/28/17 08:59 Ascorbic Acid (Vitamin C Tab) 1,000 mg BID PO 02/25/17 21:00 03/27/17 20:59 Calcium/Vitamin D (Caltrate Plus Tab) 1 tab DAILY PO 02/26/17 09:00 03/28/17 08:59 Citalopram Hydrobromide (celeXA TAB) 10 mg QAM PO 02/26/17 09:00 03/28/17 08:59 Multivitamins/ Minerals (Multivitamin W/ Minerals Tab) 1 tab BID PO 02/25/17 21:00 03/27/17 20:59 Insulin Human Regular (novoLIN-R) SLIDING SCALE IF C... ACHS SC 02/25/17 12:00 03/27/17 11:59 Rosuvastatin Calcium (Crestor Tab) 5 mg QAM PO 02/26/17 09:00 03/28/17 08:59 Miscellaneous Information (Order Awaiting Action) 1 ea QS N/A 02/25/17 16:00 03/27/17 15:59 Review of Systems Review of Systems Additional Comments: The review of systems was reviewed from her admitting history and physical Physical Exam Vital Signs: Vital Signs Past 12 Hours Date Time Temp Pulse Resp B/P (MAP) Pulse Ox O2 Delivery O2 Flow Rate FiO2 02/25/17 07:25 37.1 75 20 138/74 (95) 98 Nasal Cannula 2.0 02/24/17 23:40 Nasal Cannula 2.0 Physical Exam: General Appearance: WD/WN, no apparent distress Eyes: bilateral eyes normal inspection ENT: hearing grossly normal Respiratory/Chest: no respiratory distress, no accessory muscle use Neurologic/Psychiatric: alert, oriented x 3 Skin: normal color Assessment & Plan Assessment & Plan Assessment #1 microscopic hematuria with an abnormal thickening of the right posterior lateral bladder wall This is been worked up in the past was found to be due to inflammation. Pathology report showed no evidence of malignancy. Currently she's had no gross hematuria and says she is voiding fine No further evaluation of this is required while the patient is in the hospital She should follow up with our office after discharge
--- NOTE | 2017-02-25 12:15 | GASTROINTESTINAL CONSULTATION ---
DATE OF CONSULTATION: 02/25/2017 DATE OF CONSULTATION: 02/25/2017 REQUESTING PHYSICIAN: Dr. Draper. CHIEF COMPLAINT: Abdominal discomfort. HISTORY OF PRESENT ILLNESS: The patient is a 81-year-old female who presented to the Emergency Room on 02/24/2017 for evaluation of worsening abdominal discomfort, nausea and fevers. The patient has a history of an ileocolonic stricture and underwent dilation with Dr. Laird and Terrell Morrison in November of 2016. This was complicated by a perforation which was treated with clipping. Unfortunately, the patient developed an abscess after the procedure and has had several hospitalizations. The patient has undergone many different types of therapy to include a trial of TPN in addition to interventional radiology guided drainage without placement of a drain. The patient notes that her discomfort seems to have improved today after being started on intravenous antibiotics. She denies having shortness of breath, dyspnea on exertion or chest discomfort today. PAST MEDICAL HISTORY: 1. Diabetes. 2. Seizure disorder. 3. Pulmonary emboli. 4. Hypercholesterolemia. 5. Restless leg syndrome. 6. Transient ischemic attacks. 7. Peripheral neuropathy. OUTPATIENT MEDICATIONS: 1. Tegretol. 2. Celexa. 3. Aspirin 81 mg per day. 4. Crestor 5 mg daily. 5. Fenofibrate 150 mg daily. 6. Lisinopril 5 mg daily. 7. Hydroxyurea 500 mg daily. 8. Methenamine hippurate 1 gram daily. 9. Gabapentin 300 mg daily. 10. Levothyroxine 25 mcg daily. 11. Niacin 500 mg daily. 12. Folic acid 1 mg daily. 13. Lasix 80 mg daily. 14. Januvia 100 mg daily. 15. Metoprolol 25 mg daily. 16. Protonix 40 mg daily. PAST SURGICAL HISTORY: Left subtotal colectomy. SOCIAL HISTORY: Nonsmoker. Denies drug use. The patient is , lives with family, currently retired. FAMILY HISTORY: Significant for diabetes, heart disease. REVIEW OF SYSTEMS: CONSTITUTIONAL: The patient with weakness and fatigue. HEAD, EYES, EARS, NOSE, AND THROAT: No difficulty swallowing. No difficulty was seen. RESPIRATORY: The patient with occasional cough and shortness of breath at baseline from history of chronic obstructive pulmonary disease. CARDIOVASCULAR: No palpitations today. GASTROINTESTINAL: Please see history of present illness. MUSCULOSKELETAL: The patient with joint pain, muscle pain. GENITOURINARY: No dysuria today. ENDOCRINE: No polyuria. PSYCHIATRIC: No depression today. No suicidal ideation. DERMATOLOGY: No rashes. No itching. PHYSICAL EXAMINATION: VITAL SIGNS: Temperature 37.1, pulse 75, respiratory rate 20, blood pressure is 138/74, pulse ox is 98% on room air. HEAD, EYES, EARS, NOSE, AND THROAT: No scleral icterus noted. NECK: No JVD noted. LUNGS: Clear to auscultation. CARDIAC: Regular rhythm today. ABDOMEN: Soft, no hepatosplenomegaly appreciated, obesity noted, no focal tenderness noted. EXTREMITIES: Trace edema noted bilaterally. LABORATORY DATA: White blood cell count 5.6, hemoglobin is 11.5, hematocrit is 34.1, platelet count is 347. PT is 11.9, INR 1.1. Sodium was 138, potassium is 4.0, chloride is 105, BUN is 18, creatinine is 0.9, AST 9, ALT 12, alkaline phosphatase 48, albumin is 2.8. IMAGING STUDIES: CT of abdomen dated 02/24/2017 a 3.5 cm abscess adjacent to the ileocolonic anastomosis, fistulous tract noted. No bowel obstruction noted. 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 She presents with worsening discomfort and fever suggestive of underlying infection. The patient appears to have responded to intravenous antibiotics. At this time, I would recommend continuing broad-spectrum antibiotics and advancing her diet to a full liquid diet. Given the complexity of her case, she may benefit from surgical intervention; however, this may be best managed at a tertiary center. If the patient continues to have problems during this admission, it may be reasonable to consider transfer to a tertiary center. RECOMMENDATIONS: 1. Liquid diet. 2. Continue with broad-spectrum antibiotics. 3. Would screen for C. diff as you did which was negative. 4. Please call with any questions or concerns. KRYSTIN
[2017-02-25] MEDS: INSULIN HUMAN REGULAR SC SCH ×3 (13:06→21:11)
[2017-02-25] MEDS ORDERED: ROPINIROLE HCL 1 MG TAB PO ONE (13:15)
[2017-02-25] MEDS: HYDROXYUREA 500 MG CAP PO SCH ×3 (13:52→21:12)
[2017-02-25] MEDS ORDERED: HYDROXYUREA 500 MG CAP PO SCH (14:00)
[2017-02-25 14:27] VITALS: BP 167/73; PULSE 81; TEMP 37.8; O2SAT 97
--- NOTE | 2017-02-25 14:49 | Progress Note ---
Progress Note Date of Service Feb 25, 2017. Progress Note URINE CULTURE GROWTH : gram negative bacilli /gram positive cocci on Zosyn already added vancomycin species isolation of of organism and sensitivity pending ID consulted
[2017-02-25] MEDS: ACETAMINOPHEN 325 MG TAB PO PRN (15:13)
[2017-02-25] MEDS ORDERED: VANCOMYCIN INJ 2,250 MG in SODIUM CHLORIDE 0.9% 500ML 500 ML IV ONE (15:15)
--- NOTE | 2017-02-25 15:24 | Pharmacy Progress Note ---
Pharmacy Abx Initial Consult Date of Service Feb 25, 2017. Pharmacy Dosing Scope Date of Consult: 02/25/17 Consultation requested by: Dr. Draper Pharmacy is consulted to initiate Vancomycin IV dosing therapy, order appropriate labs and adjust drug dose/frequency. Subjective The patient is a 81 year old female admitted on Feb 24, 2017 at 18:09. Objective Height (Feet): 5 Height (Inches): 5.00 Weight (Kilograms): 91.000 Vital Signs (Past 12Hrs) Vital Signs Past 12 Hours Date Time Temp Pulse Resp B/P (MAP) Pulse Ox O2 Delivery O2 Flow Rate FiO2 02/25/17 14:27 37.8 81 12 167/73 (104) 97 Room Air 02/25/17 07:25 37.1 75 20 138/74 (95) 98 Nasal Cannula 2.0 Lab Results (24Hrs) Laboratory Tests (24 Hours) Test 02/25/17 09:43 White Blood Count 5.62 K/uL (4.8-10.8) Micro Results Date/Time Source Procedure Growth Status 02/24/17 13:40 Blood Blood Culture Pending Received 02/24/17 13:30 Blood Blood Culture Pending Received 02/24/17 21:15 Stool C.difficile Toxin B Gene (PCR) - Final No C. difficile toxin B gene detected Complete 02/24/17 21:15 Stool Shiga Toxin Test - Preliminary Resulted 02/24/17 21:15 Stool Stool Culture - Preliminary NO SALMONELLA ISOLATED TO DATE,... Resulted 02/24/17 21:15 Urine , Clean Catch Urine Culture - Preliminary Gram Negative Bacilli Gram Positive Cocci Resulted Risk Factors for Resistance * Hospitalization for 48 hours or more within the past 90 days * Antimicrobial use within the last 90 days Assessment & Plan Assessment 81 year old female receiving Zosyn IV for ongoing abdominal abscess, now with Gram + cocci growing in the urine. C/S pending. ID consulted. Blood cultures pending. Of note, Gram - bacilli also in urine. Plan Vancomycin IV * Loading dose: 2250 mg (25 mg/kg) * Maintenance dose: 1350 mg IV (15 mg/kg) every 12 hours * Goal trough level: 15 to 20 mcg/mL * Trough level ordered for 02/27/17 prior to the 1600 dose. Piperacillin/tazobactam * 4.5 g bolus administered over 30 minutes given in ED, then 3.375 g IV extended infusion every 8 hours for CrCl greater than 20 mL/min. Pharmacy will continue to follow and will adjust dose/frequency as necessary. Thank you.
[2017-02-25] MEDS ORDERED: VANCOMYCIN CONSULT ACTIVE PRN (15:30)
[2017-02-25 15:46] VITALS: BP 130/70; PULSE 78; TEMP 37.4; O2SAT 94
--- NOTE | 2017-02-25 20:00 | Medical Consult ---
Consultation Date of Consultation: Feb 25, 2017. Attending Physician: Corinne Draper M.D. Reason for Consultation: Abdominal abscess History of Present Illness 81-year-old female with complicated recent past medical history with ileocolonic stricture undergoing colonoscopy, complicated by perforation, with hospitalizations for development of peritonitis and abscess formation. She was treated with antibiotics including ciprofloxacin and metronidazole, but now identified as having ESBL producing E coli as well as persistent collection on CT scan, read by me. Currently being treated with IV Zosyn, blood cultures are negative, urine culture growing relatively sensitive Klebsiella species. Has had some headache, abdominal pain 1 to 2/10 presently. Past Medical/Surgical History Medical Problems: (1) Acute urinary retention Status: Acute (2) Bladder mass Status: Acute (3) Current use of detention anticoagulation Status: Acute (4) Dehydration Status: Acute (5) Flu-like symptoms Status: Acute (6) Hematuria Status: Acute (7) Hematuria Status: Acute (8) History of DVT of lower extremity Status: Acute (9) Intra-abdominal abscess Status: Acute (10) Intra-abdominal abscess Status: Acute (11) Intractable nausea and vomiting Status: Acute (12) Left lower quadrant pain Status: Acute (13) Nausea, vomiting, and diarrhea Status: Acute (14) UTI (urinary tract infection) Status: Acute (15) Weak Status: Acute Medical Problems: (1) Abdominal abscess (2) Abdominal pain (3) Diabetes (4) Dizzy spells (5) DVT (deep venous thrombosis) (6) Heart disease (7) History of pulmonary embolism (8) Hypertension (9) Pacemaker (10) Syncope Surgical Problems: (1) H/O: hysterectomy (2) History of partial surgical removal of colon (3) Hx of appendectomy (4) Hx of cholecystectomy Family History Cancer Diabetes mellitus Heart disease Hypertension Kidney disease Kidney stones Social History Smoking Status: Unknown if Ever Smoked Drug Use: none Marital Status: Housing Status: lives with family Occupation Status: unemployed Allergies Coded Allergies: Butorphanol (Verified Allergy, Intermediate, HIVES, 01/15/17) Chlorzoxazone (Verified Allergy, Intermediate, HIVES, 01/15/17) Erythromycin (Verified Allergy, Intermediate, HIVES, 01/15/17) Naloxone (Verified Allergy, Intermediate, HIVES, 01/15/17) Nitrofurantoin (Verified Allergy, Intermediate, HIVES, 01/15/17) Pentazocine (Verified Allergy, Intermediate, HIVES, 01/15/17) Diazepam (Verified Adverse Reaction, Unknown, FELLS LIKE CRAWLING UP A WALL, 01/15/17) Current Inpatient Medications Current Inpatient Medications Medications (Trade) Dose Ordered Sig/Tone Route Start Time Stop Time Status Last Admin Dose Admin Ioversol (Optiray 320) 111 ml UD PRN IV 02/24/17 15:45 02/28/17 15:44 Ondansetron HCl (Zofran Inj) 4 mg Q6H PRN IV 02/24/17 18:15 03/26/17 18:14 Piperacillin Sod/ Tazobactam Sod 3.375 gm/Dextrose 115 ml @ 28.75 mls/ hr Q8@0200,1000,1800 IV 02/25/17 02:00 03/07/17 01:59 02/25/17 18:54 28.75 MLS/HR Hydromorphone HCl (Dilaudid Inj) 0.5 mg Q3HWA PRN IV 02/24/17 18:15 03/10/17 18:14 Piperacillin Sod/ Tazobactam Sod (Consult) 1 ea UD PRN N/A 02/24/17 18:30 03/26/17 18:29 Glucose (Glucose 40% Gel) 15-30 GRAMS 15 GRAMS... UD PRN PO 02/24/17 18:45 03/26/17 18:44 Glucose (Glucose Chew Tab) 4-8 Tablets 4 Tabl... UD PRN PO 02/24/17 18:45 03/26/17 18:44 Dextrose (Dextrose 50% 50ML Syringe) 25-50ML OF 50% DW IV FOR... UD PRN IV 02/24/17 18:45 03/26/17 18:44 Glucagon (Glucagon Inj) 1 mg UD PRN SQ 02/24/17 18:45 03/26/17 18:44 Pantoprazole Sodium 40 mg/ Syringe 10 ml @ 5 mls/min DAILY@09,21 IV 02/24/17 21:00 03/26/17 20:59 02/25/17 09:12 5 MLS/MIN Aspirin (Ecotrin Tab) 81 mg QAM PO 02/26/17 09:00 03/28/17 08:59 Carbamazepine (Tegretol Tab) 300 mg BID PO 02/25/17 21:00 03/27/17 20:59 Enoxaparin Sodium (Lovenox Inj) 60 mg Q12H SQ 02/25/17 10:30 03/27/17 10:29 02/25/17 10:58 60 MG Fish Oil ([place]-3 (Purified Fish Oil) Cap) 1 gm BID PO 02/25/17 21:00 03/27/17 20:59 Folic Acid (Folvite Tab) 400 mcg QAM PO 02/26/17 09:00 03/28/17 08:59 Furosemide (Lasix Tab) 40 mg DAILY PO 02/26/17 09:00 03/28/17 08:59 Gabapentin (Neurontin Tab) 1,200 mg HS PO 02/25/17 21:00 03/27/17 20:59 Levothyroxine Sodium (Synthroid Tab) 25 mcg DAILYBB PO 02/26/17 06:00 03/28/17 05:59 Methenamine Hippurate (Urex Tab) 1 gm BID PO 02/25/17 21:00 03/07/17 20:59 Metolazone (Zaroxolyn Tab) 2.5 mg DAILY PRN PO 02/25/17 09:15 03/27/17 09:14 Metoprolol Tartrate (Lopressor Tab) 25 mg BID PO 02/25/17 21:00 03/27/17 20:59 Niacin (Niacin Tab) 500 mg QAM PO 02/26/17 09:00 03/28/17 08:59 Oxycodone/ Acetaminophen (Percocet 5-325mg Tab) 1 tab Q4H PRN PO 02/25/17 09:15 03/11/17 09:14 Ropinirole HCl (Requip Tab) 3 mg HS PO 02/25/17 21:00 03/27/17 20:59 Ropinirole HCl (Requip Tab) 1 mg QAM PO 02/26/17 09:00 03/28/17 08:59 Ascorbic Acid (Vitamin C Tab) 1,000 mg BID PO 02/25/17 21:00 03/27/17 20:59 Calcium/Vitamin D (Caltrate Plus Tab) 1 tab DAILY PO 02/26/17 09:00 03/28/17 08:59 Citalopram Hydrobromide (celeXA TAB) 10 mg QAM PO 02/26/17 09:00 03/28/17 08:59 Multivitamins/ Minerals (Multivitamin W/ Minerals Tab) 1 tab BID PO 02/25/17 21:00 03/27/17 20:59 Insulin Human Regular (novoLIN-R) SLIDING SCALE IF C... ACHS SC 02/25/17 12:00 03/27/17 11:59 02/25/17 18:26 4 UNITS Rosuvastatin Calcium (Crestor Tab) 5 mg QAM PO 02/26/17 09:00 03/28/17 08:59 Miscellaneous Information (Order Awaiting Action) 1 ea QS N/A 02/25/17 16:00 03/27/17 15:59 Hydroxyurea (Hydrea Cap) 500 mg MoThSa@0900 PO 02/25/17 13:30 03/27/17 13:29 02/25/17 13:52 500 MG Hydroxyurea (Hydrea Cap) 500 mg BID PO 02/25/17 13:30 03/27/17 13:29 02/25/17 13:52 500 MG Acetaminophen (Tylenol Tab) 650 mg Q4H PRN PO 02/25/17 14:45 03/27/17 14:44 02/25/17 15:13 650 MG Vancomycin HCl 1350 mg/Sodium Chloride 277 ml @ 125 mls/hr Q12H IV 02/26/17 04:00 03/03/17 03:59 Vancomycin HCl (Consult) 1 ea UD PRN N/A 02/25/17 15:30 03/27/17 15:29 Review of Systems All systems were reviewed and are negative except as per HPI Physical Exam Date Time Temp Pulse Resp B/P (MAP) Pulse Ox O2 Delivery O2 Flow Rate FiO2 02/25/17 15:50 Room Air 02/25/17 15:46 37.4 78 18 130/70 (90) 94 Room Air 02/25/17 14:27 37.8 81 12 167/73 (104) 97 Room Air 02/25/17 07:25 37.1 75 20 138/74 (95) 98 Nasal Cannula 2.0 02/24/17 23:40 Nasal Cannula 2.0 02/24/17 23:01 37.1 76 18 149/65 (93) 97 Nasal Cannula 2.0 02/24/17 22:30 94 Room Air 02/24/17 20:04 94 Room Air 02/24/17 20:04 37.2 71 16 161/79 General Appearance: WD/WN, no apparent distress Head: normocephalic, atraumatic Eyes: normal inspection, EOMI, sclerae normal ENT: normal ENT inspection, pharynx normal Neck: supple, no adenopathy, thyroid normal, trachea midline Respiratory/Chest: chest non-tender, lungs clear, normal breath sounds, no respiratory distress Cardiovascular: regular rate, rhythm, no gallop, no murmur Abdomen/GI: normal bowel sounds, soft, no organomegaly, + tenderness ( left lower quadrant) Back: normal inspection, no CVA tenderness Extremities/Musculoskelatal: no calf tenderness, normal capillary refill, non- tender Neurologic/Psych: alert, oriented x 3 Skin: normal color, warm/dry, no rash Lymphatic: no adenopathy Laboratory Results Last 24 Hours Test 02/24/17 21:44 02/25/17 05:49 02/25/17 07:04 02/25/17 09:08 Bedside Glucose 128 mg/dl 133 mg/dl 149 mg/dl Estimated Average Glucose 103 mg/dl Hemoglobin A1c 5.2 % Test 02/25/17 09:43 02/25/17 12:22 02/25/17 16:59 White Blood Count 5.62 K/uL Red Blood Count 3.15 M/uL Hemoglobin 11.4 g/dL Hematocrit 34.1 % Mean Corpuscular Volume 108.3 fL Mean Corpuscular Hemoglobin 36.2 pg Mean Corpuscular Hemoglobin Concent 33.4 g/dl RDW Standard Deviation 59.5 fL RDW Coefficient of Variation 15.3 % Platelet Count 347 K/uL Mean Platelet Volume 9.5 fL Sodium Level 137 mmol/L Potassium Level 4.0 mmol/L Chloride Level 105 mmol/L Carbon Dioxide Level 28 mmol/L Anion Gap 4.0 mmol/L Blood Urea Nitrogen 18 mg/dl Creatinine 0.91 mg/dl Est Creatinine Clear Calc Drug Dose 55.9 ml/min Estimated GFR () 69.5 Estimated GFR (Non- 60.0 BUN/Creatinine Ratio 20.2 Random Glucose 136 mg/dl Calcium Level 8.7 mg/dl Total Bilirubin 0.4 mg/dl Aspartate Amino Transf (AST/SGOT) 9 U/L Alanine Aminotransferase (ALT/SGPT) 12 U/L Alkaline Phosphatase 48 U/L Total Protein 7.1 gm/dl Albumin 2.8 gm/dl Globulin 4.3 gm/dl Albumin/Globulin Ratio 0.7 Bedside Glucose 142 mg/dl 151 mg/dl Assessment & Plan 81-year-old female with history of perforation following colonoscopy for stricture, now presents with persistent abscess formation, with blood cultures negative today, urine culture growing both gram-positive and gram-negative bacilli, agree with treatment with vancomycin and Zosyn pending final culture results. I will adjust once these are available. May require further surgical intervention. Will discuss with all involved.
[2017-02-25] MEDS: METOPROLOL TARTRATE 25 MG TAB PO SCH (21:04)
[2017-02-25] MEDS: OXYCODONE/ACETAMINOPHEN 5-325 TAB PO PRN (21:13)
[2017-02-25] MEDS: GABAPENTIN 600 MG TAB PO SCH (21:13)
[2017-02-25] MEDS: ROPINIROLE HCL 1 MG TAB PO SCH (21:14)
[2017-02-25] MEDS: CEROVITE ADV FORMULA TAB PO SCH (21:14)
[2017-02-25] MEDS: CARBAMAZEPINE 200 MG TAB PO SCH (21:14)
[2017-02-25] MEDS: ASCORBIC ACID 500 MG TAB PO SCH (21:14)
[2017-02-25] MEDS: OMEGA-3 (PURIFIED FISH OIL) 1 GM CAP PO SCH (21:14)
[2017-02-25] MEDS: METHENAMINE HIPPURATE 1 GM TAB PO SCH (21:15)
[2017-02-25 22:59] VITALS: BP 117/67; PULSE 68; TEMP 37; O2SAT 98
[2017-02-26] MEDS: PIPERACILL/TAZOBAC IV 3.375 GM in DEXTROSE 5% 100ML 100 ML IV SCH ×3 (02:40→18:33)
[2017-02-26] MEDS ORDERED: VANCOMYCIN INJ 1,350 MG in SODIUM CHLORIDE 0.9% 250ML 250 ML IV SCH (04:00)
[2017-02-26] MEDS: LEVOTHYROXINE 25 MCG TAB PO SCH (06:14)
[2017-02-26 06:19] LABS: HEMATOCRIT 31.4 % (37-47); MEAN CELL VOLUME 107.5 fL (80-100); MEAN CORPUSCULAR HEMOGLOBIN 36.6 pg (25-34); MEAN CORPUSCULAR HGB CONC 34.1 g/dl (32-36); MEAN PLATELET VOLUME 10.4 fL (7.4-10.4); PLATELET COUNT 364 K/uL (130-400); RED BLOOD COUNT 2.92 M/uL (4.2-5.4); WHITE BLOOD COUNT 6.24 K/uL (4.8-10.8)
[2017-02-26 06:49] LABS: BUN/CREATININE RATIO 17.3 (10-20); CALCIUM 8.4 mg/dl (8.5-10.1); POTASSIUM 4.1 mmol/L (3.5-5.1)
[2017-02-26 07:08] VITALS: BP 140/63; PULSE 69; TEMP 36.8; O2SAT 97
--- NOTE | 2017-02-26 07:51 | SURGICAL CONSULTATION ---
DATE OF CONSULTATION: 02/25/2017 HISTORY OF PRESENT ILLNESS: I have been asked by Dr. Draper to see this 81-year-old female, who presented to the Emergency Room with complaint of abdominal pain in the left lower quadrant. Her history goes back to mid November, when she underwent a colonoscopy for dilatation of her ileocolonic anastomosis. She had a small perforation and developed an abscess. She was admitted a few weeks ago and transferred to [place], where a percutaneous aspiration was performed and she was placed on antibiotics. She had similar symptoms to what she is having today at that time and they resolved. She was sent home on oral antibiotics. She then began to develop pain in the left lower quadrant again. It escalated to being sharp. It was associated with nausea, but no vomiting. Her bowels have been regular, although she has occasional diarrhea, but there is no melena or hematochezia. She thinks that she had fever and chills. There was small blood in her stool as well. Her pain has since resolved after being placed on IV antibiotics. PAST MEDICAL HISTORY: Includes hypertension, diabetes mellitus type 2, hypothyroidism, hypercholesterolemia, history of bradycardia requiring pacemaker, diverticulitis, Factor V Leiden with a DVT and PE, and seizure disorder. PAST SURGICAL HISTORY: For a T&A, tubal ligation, CATHERINE/BSO, appendectomy, partial colectomy, placement of vena cava filter and pacemaker placement. MEDICATIONS AT HOME: Included aspirin, Tegretol, fenofibrate, Lasix, Neurontin, hydroxyurea, levothyroxine, methenamine, Lopressor, niacin, Protonix, Requip, Crestor, Januvia and multiple vitamins. ALLERGIES: BUTORPHANOL, CHLORZOXAZONE, AMOXICILLIN, NITROFURANTOIN, PENTAZOCINE AND DIAZEPAM. PHYSICAL EXAMINATION: GENERAL: Reveals a well-developed and well-nourished female, who is resting comfortably and appears in no acute distress. VITAL SIGNS: Blood pressure 130/70, heart rate 78, respirations 18, temperature 37.4, and pulse oximetry is 94% on room air. HEENT: Reveals her sclerae to be anicteric. Mucous membranes are moist. NECK: Supple with no JVD and no cervical or supraclavicular adenopathy. BACK: Has no spinal or CVA tenderness. LUNGS: Clear. HEART: Regular. ABDOMEN: Soft, nondistended, and nontender with no masses or hepatomegaly. EXTREMITIES: Reveal no edema. LABORATORY DATA: WBC 5.62, H&H is 11.4 and 34.1, and platelet count 347,000. Sodium 137, potassium 4.0, chloride 105, CO2 of 28, BUN 18, creatinine 0.9, and glucose 136. Total bilirubin 0.4. AST 9, ALT 12, and alkaline phosphatase 48. DIAGNOSTIC STUDIES: CT scan of the abdomen and pelvis shows no pneumatosis or free air and the IVC filter was confirmed. 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 ASSESSMENT AND PLAN: This patient has an anastomosis that may have had a small perforation during dilatation and developed an abscess. 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 She has improved again on IV antibiotics. I would continue with conservative measures. I do not think there is any need for immediate surgical intervention. If that should be necessary, I would consider transfer to [facility]. KRYSTIN
[2017-02-26] MEDS ORDERED: PANTOprazole SOD 40 MG TAB PO SCH (09:00)
[2017-02-26] MEDS ORDERED: FENOFIBRATE 150 MG PO SCH (09:00)
[2017-02-26] MEDS ORDERED: ROSUVASTATIN CALCIUM 10 MG TAB PO SCH (09:00)
[2017-02-26] MEDS ORDERED: HYDROXYUREA 500 MG CAP PO SCH (09:00)
[2017-02-26] MEDS: ENOXAPARIN 60 MG/0.6 ML SYR SQ SCH ×2 (09:31→22:03)
[2017-02-26] MEDS: ASPIRIN 81 MG ECTAB PO SCH (09:31)
[2017-02-26] MEDS: CITALOPRAM 20 MG TAB PO SCH (09:31)
[2017-02-26] MEDS: PANTOprazole INJ 40 MG in SYRINGE 0 ML IV SCH ×2 (09:32→20:56)
[2017-02-26] MEDS: ROPINIROLE HCL 1 MG TAB PO SCH ×2 (09:32→20:56)
[2017-02-26] MEDS: NIACIN 500 MG TAB IMMEDIATE RELEASE PO SCH (09:33)
[2017-02-26] MEDS: CEROVITE ADV FORMULA TAB PO SCH ×2 (09:34→20:56)
[2017-02-26] MEDS: ROSUVASTATIN CALCIUM 5 MG TAB PO SCH (09:34)
[2017-02-26] MEDS: FUROSEMIDE 40 MG TAB PO SCH (09:34)
[2017-02-26] MEDS: FoLIC ACID TAB 400 MCG TAB PO SCH (09:35)
[2017-02-26] MEDS: METOPROLOL TARTRATE 25 MG TAB PO SCH ×2 (09:36→20:56)
[2017-02-26] MEDS: CARBAMAZEPINE 200 MG TAB PO SCH ×2 (09:36→20:57)
[2017-02-26] MEDS: CALCIUM 600MG + VIT D 400 IU TAB PO SCH (09:36)
[2017-02-26] MEDS: OMEGA-3 (PURIFIED FISH OIL) 1 GM CAP PO SCH ×2 (09:37→20:56)
[2017-02-26] MEDS: ASCORBIC ACID 500 MG TAB PO SCH ×2 (09:38→20:57)
[2017-02-26] MEDS: METHENAMINE HIPPURATE 1 GM TAB PO SCH ×2 (09:38→20:56)
[2017-02-26] MEDS: INSULIN HUMAN REGULAR SC SCH ×4 (09:45→21:05)
[2017-02-26] MEDS: HYDROXYUREA 500 MG CAP PO SCH ×2 (09:46→21:05)
--- NOTE | 2017-02-26 10:14 | Gastroenterology Progress Note ---
Progress Note Date of Service: Feb 26, 2017 Subjective Pt evaluation today including: physical exam The patient reports that she is feeling somewhat better this morning. She no longer has abdominal discomfort or nausea. No fevers reported overnight. Review of Systems Constitutional: No fever, No sweats Respiratory: No cough, No wheezing, No dyspnea at rest Cardiac: No chest pain, No edema, No palpitations Medications Current Inpatient Medications Medications (Trade) Dose Ordered Sig/Tone Route Start Time Stop Time Status Last Admin Dose Admin Ioversol (Optiray 320) 111 ml UD PRN IV 02/24/17 15:45 02/28/17 15:44 Ondansetron HCl (Zofran Inj) 4 mg Q6H PRN IV 02/24/17 18:15 03/26/17 18:14 Piperacillin Sod/ Tazobactam Sod 3.375 gm/Dextrose 115 ml @ 28.75 mls/ hr Q8@0200,1000,1800 IV 02/25/17 02:00 03/07/17 01:59 02/26/17 09:46 28.75 MLS/HR Hydromorphone HCl (Dilaudid Inj) 0.5 mg Q3HWA PRN IV 02/24/17 18:15 03/10/17 18:14 Piperacillin Sod/ Tazobactam Sod (Consult) 1 ea UD PRN N/A 02/24/17 18:30 03/26/17 18:29 Glucose (Glucose 40% Gel) 15-30 GRAMS 15 GRAMS... UD PRN PO 02/24/17 18:45 03/26/17 18:44 Glucose (Glucose Chew Tab) 4-8 Tablets 4 Tabl... UD PRN PO 02/24/17 18:45 03/26/17 18:44 Dextrose (Dextrose 50% 50ML Syringe) 25-50ML OF 50% DW IV FOR... UD PRN IV 02/24/17 18:45 03/26/17 18:44 Glucagon (Glucagon Inj) 1 mg UD PRN SQ 02/24/17 18:45 03/26/17 18:44 Pantoprazole Sodium 40 mg/ Syringe 10 ml @ 5 mls/min DAILY@09,21 IV 02/24/17 21:00 03/26/17 20:59 02/26/17 09:32 5 MLS/MIN Aspirin (Ecotrin Tab) 81 mg QAM PO 02/26/17 09:00 03/28/17 08:59 02/26/17 09:31 81 MG Carbamazepine (Tegretol Tab) 300 mg BID PO 02/25/17 21:00 03/27/17 20:59 02/26/17 09:36 300 MG Enoxaparin Sodium (Lovenox Inj) 60 mg Q12H SQ 02/25/17 10:30 03/27/17 10:29 02/26/17 09:31 60 MG Fish Oil ([place]-3 (Purified Fish Oil) Cap) 1 gm BID PO 02/25/17 21:00 03/27/17 20:59 02/26/17 09:37 1 GM Folic Acid (Folvite Tab) 400 mcg QAM PO 02/26/17 09:00 03/28/17 08:59 02/26/17 09:35 400 MCG Furosemide (Lasix Tab) 40 mg DAILY PO 02/26/17 09:00 03/28/17 08:59 02/26/17 09:34 40 MG Gabapentin (Neurontin Tab) 1,200 mg HS PO 02/25/17 21:00 03/27/17 20:59 02/25/17 21:13 1,200 MG Levothyroxine Sodium (Synthroid Tab) 25 mcg DAILYBB PO 02/26/17 06:00 03/28/17 05:59 02/26/17 06:14 25 MCG Methenamine Hippurate (Urex Tab) 1 gm BID PO 02/25/17 21:00 03/07/17 20:59 02/26/17 09:38 1 GM Metolazone (Zaroxolyn Tab) 2.5 mg DAILY PRN PO 02/25/17 09:15 03/27/17 09:14 Metoprolol Tartrate (Lopressor Tab) 25 mg BID PO 02/25/17 21:00 03/27/17 20:59 02/26/17 09:36 25 MG Niacin (Niacin Tab) 500 mg QAM PO 02/26/17 09:00 03/28/17 08:59 02/26/17 09:33 500 MG Oxycodone/ Acetaminophen (Percocet 5-325mg Tab) 1 tab Q4H PRN PO 02/25/17 09:15 03/11/17 09:14 02/25/17 21:13 1 TAB Ropinirole HCl (Requip Tab) 3 mg HS PO 02/25/17 21:00 03/27/17 20:59 02/25/17 21:14 3 MG Ropinirole HCl (Requip Tab) 1 mg QAM PO 02/26/17 09:00 03/28/17 08:59 02/26/17 09:32 1 MG Ascorbic Acid (Vitamin C Tab) 1,000 mg BID PO 02/25/17 21:00 03/27/17 20:59 02/26/17 09:38 1,000 MG Calcium/Vitamin D (Caltrate Plus Tab) 1 tab DAILY PO 02/26/17 09:00 03/28/17 08:59 02/26/17 09:36 1 TAB Citalopram Hydrobromide (celeXA TAB) 10 mg QAM PO 02/26/17 09:00 03/28/17 08:59 02/26/17 09:31 10 MG Multivitamins/ Minerals (Multivitamin W/ Minerals Tab) 1 tab BID PO 02/25/17 21:00 03/27/17 20:59 02/26/17 09:34 1 TAB Insulin Human Regular (novoLIN-R) SLIDING SCALE IF C... ACHS SC 02/25/17 12:00 03/27/17 11:59 02/26/17 09:45 4 UNITS Rosuvastatin Calcium (Crestor Tab) 5 mg QAM PO 02/26/17 09:00 03/28/17 08:59 02/26/17 09:34 5 MG Miscellaneous Information (Order Awaiting Action) 1 ea QS N/A 02/25/17 16:00 03/27/17 15:59 Hydroxyurea (Hydrea Cap) 500 mg MoThSa@0900 PO 02/25/17 13:30 03/27/17 13:29 02/25/17 13:52 500 MG Hydroxyurea (Hydrea Cap) 500 mg BID PO 02/25/17 13:30 03/27/17 13:29 02/26/17 09:46 500 MG Acetaminophen (Tylenol Tab) 650 mg Q4H PRN PO 02/25/17 14:45 03/27/17 14:44 02/25/17 15:13 650 MG Vancomycin HCl 1350 mg/Sodium Chloride 277 ml @ 125 mls/hr Q12H IV 02/26/17 04:00 03/03/17 03:59 02/26/17 04:22 125 MLS/HR Vancomycin HCl (Consult) 1 ea UD PRN N/A 02/25/17 15:30 03/27/17 15:29 Objective Vital Signs Date Time Temp Pulse Resp B/P (MAP) Pulse Ox O2 Delivery O2 Flow Rate FiO2 02/26/17 07:17 Room Air 02/26/17 07:08 36.8 69 15 140/63 (88) 97 Nasal Cannula 2.0 02/25/17 23:00 Nasal Cannula 2.0 02/25/17 22:59 37.0 68 16 117/67 (84) 98 Nasal Cannula 2.0 02/25/17 15:50 Room Air 02/25/17 15:46 37.4 78 18 130/70 (90) 94 Room Air 02/25/17 14:27 37.8 81 12 167/73 (104) 97 Room Air Physical Exam General Appearance: no apparent distress Eyes: PERRL Neck: no JVD Respiratory/Chest: lungs clear Cardiovascular: no JVD, no murmur Abdomen: non tender, soft Laboratory Results Last 24 Hours Test 02/25/17 12:22 02/25/17 16:59 02/25/17 20:36 02/26/17 05:46 Bedside Glucose 142 mg/dl 151 mg/dl 182 mg/dl White Blood Count 6.24 K/uL Red Blood Count 2.92 M/uL Hemoglobin 10.7 g/dL Hematocrit 31.4 % Mean Corpuscular Volume 107.5 fL Mean Corpuscular Hemoglobin 36.6 pg Mean Corpuscular Hemoglobin Concent 34.1 g/dl RDW Standard Deviation 60.7 fL RDW Coefficient of Variation 15.4 % Platelet Count 364 K/uL Mean Platelet Volume 10.4 fL Sodium Level 136 mmol/L Potassium Level 4.1 mmol/L Chloride Level 104 mmol/L Carbon Dioxide Level 25 mmol/L Anion Gap 7.0 mmol/L Blood Urea Nitrogen 17 mg/dl Creatinine 1.00 mg/dl Est Creatinine Clear Calc Drug Dose 50.8 ml/min Estimated GFR () 62.1 Estimated GFR (Non- 53.5 BUN/Creatinine Ratio 17.3 Random Glucose 122 mg/dl Calcium Level 8.4 mg/dl Test 02/26/17 08:07 Bedside Glucose 147 mg/dl Assessment and Plan Patient with a history of a contained perforation after a dilation of a ileocolonic stricture. 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 This is likely be cause of her recurrent abscess formation. Unfortunately the patient has had a number of surgeries in the past and a decision about the best course of action will be difficult. For the time being she appears to be improving with the broad-spectrum antibiotic coverage. Recommendations Continue with low fiber diet Continue with broad-spectrum antibiotics will likely transition to oral antibiotics tomorrow Patient will likely follow-up with [facility] as an outpatient to determine what the best course of action will be (ileostomy versus an endoscopic intervention)
[2017-02-26 13:26] VITALS: BP 118/63; PULSE 67; O2SAT 99
--- NOTE | 2017-02-26 13:39 | Surgery Progress Note ---
Surgery Progress Note Date of Service Feb 26, 2017. Subjective + bowel movement, + flatus, No nausea, No vomiting feels better today Objective Vital Signs: Date Time Temp Pulse Resp B/P (MAP) Pulse Ox O2 Delivery O2 Flow Rate FiO2 02/26/17 07:17 Room Air 02/26/17 07:08 36.8 69 15 140/63 (88) 97 Nasal Cannula 2.0 02/25/17 23:00 Nasal Cannula 2.0 02/25/17 22:59 37.0 68 16 117/67 (84) 98 Nasal Cannula 2.0 02/25/17 15:50 Room Air 02/25/17 15:46 37.4 78 18 130/70 (90) 94 Room Air 02/25/17 14:27 37.8 81 12 167/73 (104) 97 Room Air Abdomen: normal bowel sounds, non distended, + tenderness (unchanged) Laboratory Results: Results Past 24 Hours Test 02/25/17 16:59 02/25/17 20:36 02/26/17 05:46 02/26/17 08:07 Range/Units Bedside Glucose 151 182 147 70-90 mg/dl White Blood Count 6.24 4.8-10.8 K/uL Red Blood Count 2.92 4.2-5.4 M/uL Hemoglobin 10.7 12.0-16.0 g/dL Hematocrit 31.4 37-47 % Mean Corpuscular Volume 107.5 80-100 fL Mean Corpuscular Hemoglobin 36.6 25-34 pg Mean Corpuscular Hemoglobin Concent 34.1 32-36 g/dl RDW Standard Deviation 60.7 36.4-46.3 fL RDW Coefficient of Variation 15.4 11.5-14.5 % Platelet Count 364 130-400 K/uL Mean Platelet Volume 10.4 7.4-10.4 fL Sodium Level 136 136-145 mmol/L Potassium Level 4.1 3.5-5.1 mmol/L Chloride Level 104 98-107 mmol/L Carbon Dioxide Level 25 21-32 mmol/L Anion Gap 7.0 3-11 mmol/L Blood Urea Nitrogen 17 7-18 mg/dl Creatinine 1.00 0.60-1.20 mg/dl Est Creatinine Clear Calc Drug Dose 50.8 ml/min Estimated GFR () 62.1 Estimated GFR (Non- 53.5 BUN/Creatinine Ratio 17.3 10-20 Random Glucose 122 70-99 mg/dl Calcium Level 8.4 8.5-10.1 mg/dl Test 02/26/17 11:48 Range/Units Bedside Glucose 175 70-90 mg/dl Assessment & Plan Small abscess with fistula to anastomotic site Clinically improved Continue conservative management with IV antibiotics Ambulating No surgical intervention at this time
--- NOTE | 2017-02-26 14:29 | Progress Note ---
Internal Med Progress Note Date of Service: Feb 26, 2017. Provider Documentation: SUBJECTIVE: no complain of abdominal pain , no fever or chills no diarrhea or blood in stool diet advanced to low residue , tolerating well OBJECTIVE: Vital Signs-as noted below Exam: General-no sign of distress, comfortable Eyes-sclera non icteric ENT-NAD Neck-no JVD Lungs-CTA , no rales or wheeze Heart-regular S1/S2; _ 1-2 bilat lower ext edema Abdomen-soft, no tenderness noted on left lower quadrant on palpation , bowel sound active Extremities-no rash or deformity Neuro-AAO x3, no focal deficit Lab data as noted below. 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 recent tx at [facility] with IR drainage Ct abdomen shows slight increase in Size of Abscess no sign of sepsis or peritonitis normal WBC, afebrile , vitals stable started on IV Zosyn ( recent abscess drainage culture -E Coli) sensitive to Zosyn ID eval requested appreciate input Surgery consulted -appreciate input , conservative approach with Abx , no indication for surgery at present DIARRHEA /GI BLEED : resolved stool c diff and culture negative hx of recurrent GI bleed , with multiple colonoscopy in past/GI eval requested appreciate input no evidence of GI bleed has chronic perforation with fistula tract at the site of contained perforation at ileocolic junction-pt had coloscopic procedure for dilatation of stricture that area pt having recurrent episodes of abdominal infection /abscess at that site -no amenable to IV abx or IR drainage will need Colorectal surgery eval at [facility] [place] for possible surgical procedure /resection of abscess HEMATURIA /BLADDER WALL IRREGULARITIES : urology consulted -appreciate input had chronic bladder irregularities , prior biopsy was benign , no intervention needed out pt follow up UTI : urine culture -Klebsiella cont Zosyn as per sensitivities 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 resumed Lovenox TYPE 2 DM : hold Januvia insulin SSI ordered HX OF SEIZURE DISORDER : no recent Sz activity Tegretol resumed TIA : no residual deficit resumed Aspirin complained of headache in admission -no symptom at present CT head negative for CVA PERIPHERAL NEUROPATHY : Neurontin resumed HYPOTHYROIDISM levothyroxine resumed RESTLESS LEG SYNDROME : Requip resumed DNR /DNI: code status D/w pt has living will DVT PROPHYLAXIS : high risk for DVT SC Lovenox resumed DISPOSITION : expected to be discharged home when medically stable PT/OT eval ordered Vital Signs: Date Time Temp Pulse Resp B/P (MAP) Pulse Ox O2 Delivery O2 Flow Rate FiO2 02/26/17 13:26 67 99 02/26/17 07:17 Room Air 02/26/17 07:08 36.8 69 15 140/63 (88) 97 Nasal Cannula 2.0 02/25/17 23:00 Nasal Cannula 2.0 02/25/17 22:59 37.0 68 16 117/67 (84) 98 Nasal Cannula 2.0 02/25/17 15:50 Room Air 02/25/17 15:46 37.4 78 18 130/70 (90) 94 Room Air Lab Results: Results Past 24 Hours Test 02/25/17 16:59 02/25/17 20:36 02/26/17 05:46 02/26/17 08:07 Range/Units Bedside Glucose 151 182 147 70-90 mg/dl White Blood Count 6.24 4.8-10.8 K/uL Red Blood Count 2.92 4.2-5.4 M/uL Hemoglobin 10.7 12.0-16.0 g/dL Hematocrit 31.4 37-47 % Mean Corpuscular Volume 107.5 80-100 fL Mean Corpuscular Hemoglobin 36.6 25-34 pg Mean Corpuscular Hemoglobin Concent 34.1 32-36 g/dl RDW Standard Deviation 60.7 36.4-46.3 fL RDW Coefficient of Variation 15.4 11.5-14.5 % Platelet Count 364 130-400 K/uL Mean Platelet Volume 10.4 7.4-10.4 fL Sodium Level 136 136-145 mmol/L Potassium Level 4.1 3.5-5.1 mmol/L Chloride Level 104 98-107 mmol/L Carbon Dioxide Level 25 21-32 mmol/L Anion Gap 7.0 3-11 mmol/L Blood Urea Nitrogen 17 7-18 mg/dl Creatinine 1.00 0.60-1.20 mg/dl Est Creatinine Clear Calc Drug Dose 50.8 ml/min Estimated GFR () 62.1 Estimated GFR (Non- 53.5 BUN/Creatinine Ratio 17.3 10-20 Random Glucose 122 70-99 mg/dl Calcium Level 8.4 8.5-10.1 mg/dl Test 02/26/17 11:48 Range/Units Bedside Glucose 175 70-90 mg/dl
[2017-02-26 15:22] VITALS: BP 150/70; PULSE 86; TEMP 36.6; O2SAT 98
[2017-02-26] MEDS: GABAPENTIN 600 MG TAB PO SCH (20:56)
[2017-02-26] MEDS: OXYCODONE/ACETAMINOPHEN 5-325 TAB PO PRN (22:04)
[2017-02-26 23:07] VITALS: BP 149/70; PULSE 71; TEMP 36.3; O2SAT 98
[2017-02-27] MEDS: PIPERACILL/TAZOBAC IV 3.375 GM in DEXTROSE 5% 100ML 100 ML IV SCH ×2 (02:45→09:44)
[2017-02-27] MEDS: LEVOTHYROXINE 25 MCG TAB PO SCH (05:27)
[2017-02-27 06:07] LABS: HEMATOCRIT 32.7 % (37-47); MEAN CELL VOLUME 107.2 fL (80-100); MEAN CORPUSCULAR HEMOGLOBIN 36.1 pg (25-34); MEAN CORPUSCULAR HGB CONC 33.6 g/dl (32-36); MEAN PLATELET VOLUME 10.3 fL (7.4-10.4); PLATELET COUNT 408 K/uL (130-400); RED BLOOD COUNT 3.05 M/uL (4.2-5.4); WHITE BLOOD COUNT 6.47 K/uL (4.8-10.8)
[2017-02-27 06:37] LABS: BUN/CREATININE RATIO 18.1 (10-20); CALCIUM 8.8 mg/dl (8.5-10.1); CREATININE 0.97 mg/dl (0.60-1.20); POTASSIUM 4.3 mmol/L (3.5-5.1)
[2017-02-27 07:09] VITALS: BP 154/74; PULSE 64; TEMP 36.5; O2SAT 97
[2017-02-27] MEDS: PANTOprazole INJ 40 MG in SYRINGE 0 ML IV SCH (08:47)
[2017-02-27] MEDS: CALCIUM 600MG + VIT D 400 IU TAB PO SCH (08:47)
[2017-02-27] MEDS: INSULIN HUMAN REGULAR SC SCH ×4 (08:50→21:34)
[2017-02-27] MEDS: CITALOPRAM 20 MG TAB PO SCH (08:52)
[2017-02-27] MEDS: FoLIC ACID TAB 400 MCG TAB PO SCH (08:52)
[2017-02-27] MEDS: ASPIRIN 81 MG ECTAB PO SCH (08:52)
[2017-02-27] MEDS: ROSUVASTATIN CALCIUM 5 MG TAB PO SCH (08:52)
[2017-02-27] MEDS: HYDROXYUREA 500 MG CAP PO SCH ×3 (08:53→21:36)
[2017-02-27] MEDS: FUROSEMIDE 40 MG TAB PO SCH (08:55)
[2017-02-27] MEDS: CEROVITE ADV FORMULA TAB PO SCH ×2 (08:56→21:19)
[2017-02-27] MEDS: NIACIN 500 MG TAB IMMEDIATE RELEASE PO SCH (08:56)
[2017-02-27] MEDS: OMEGA-3 (PURIFIED FISH OIL) 1 GM CAP PO SCH ×2 (08:57→21:19)
[2017-02-27] MEDS: ROPINIROLE HCL 1 MG TAB PO SCH ×2 (08:57→21:20)
[2017-02-27] MEDS: ASCORBIC ACID 500 MG TAB PO SCH ×2 (08:58→21:22)
[2017-02-27] MEDS: CARBAMAZEPINE 200 MG TAB PO SCH ×2 (08:58→21:21)
[2017-02-27] MEDS: METHENAMINE HIPPURATE 1 GM TAB PO SCH ×2 (08:58→21:22)
[2017-02-27] MEDS: METOPROLOL TARTRATE 25 MG TAB PO SCH ×2 (09:03→21:19)
--- NOTE | 2017-02-27 10:28 | Surgery Progress Note ---
Surgery Progress Note Date of Service Feb 27, 2017. Subjective + ambulating, + bowel movement, + flatus, + pain controlled, + diet (low fiber diet ), No chest pain, No SOB, No nausea, No vomiting "feeling okay" "feels good in the morning and then not so well as the day goes on" Still having some abdominal pain Tolerating regular diet No fever or chills no nausea or vomiting Objective Vital Signs: Date Time Temp Pulse Resp B/P (MAP) Pulse Ox O2 Delivery O2 Flow Rate FiO2 02/27/17 07:45 Room Air 02/27/17 07:09 36.5 64 20 154/74 (100) 97 Nasal Cannula 2.0 02/27/17 00:05 Nasal Cannula 2.0 02/26/17 23:07 36.3 71 16 149/70 (96) 98 Room Air 2.0 02/26/17 15:30 Room Air 02/26/17 15:22 36.6 86 18 150/70 (96) 98 Room Air 02/26/17 13:26 67 99 General Appearance: WD/WN, no apparent distress Head: normocephalic, atraumatic Neck: trachea midline Respiratory/Chest: lungs clear, normal breath sounds, no respiratory distress, no accessory muscle use Cardiovascular: regular rate, rhythm, no murmur Abdomen: non distended, soft, + tenderness (LLQ and RUQ on palpation, voluntary guarding but no rebound or peritonitis) Laboratory Results: Results Past 24 Hours Test 02/26/17 11:48 02/26/17 17:05 02/26/17 20:36 02/27/17 05:44 Range/Units Bedside Glucose 175 148 226 70-90 mg/dl White Blood Count 6.47 4.8-10.8 K/uL Red Blood Count 3.05 4.2-5.4 M/uL Hemoglobin 11.0 12.0-16.0 g/dL Hematocrit 32.7 37-47 % Mean Corpuscular Volume 107.2 80-100 fL Mean Corpuscular Hemoglobin 36.1 25-34 pg Mean Corpuscular Hemoglobin Concent 33.6 32-36 g/dl RDW Standard Deviation 59.8 36.4-46.3 fL RDW Coefficient of Variation 15.1 11.5-14.5 % Platelet Count 408 130-400 K/uL Mean Platelet Volume 10.3 7.4-10.4 fL Sodium Level 138 136-145 mmol/L Potassium Level 4.3 3.5-5.1 mmol/L Chloride Level 104 98-107 mmol/L Carbon Dioxide Level 27 21-32 mmol/L Anion Gap 7.0 3-11 mmol/L Blood Urea Nitrogen 18 7-18 mg/dl Creatinine 0.97 0.60-1.20 mg/dl Est Creatinine Clear Calc Drug Dose 52.4 ml/min Estimated GFR () 64.4 Estimated GFR (Non- 55.5 BUN/Creatinine Ratio 18.1 10-20 Random Glucose 115 70-99 mg/dl Calcium Level 8.8 8.5-10.1 mg/dl Test 02/27/17 08:04 Range/Units Bedside Glucose 151 70-90 mg/dl Assessment & Plan Intra-Abdominal abscess near Ileocolonic anastomosis with Fistulous tract -vitals stable - no leukocytosis - LLQ and RUQ tenderness on palpation, no peritonitis or rigidity - tolerating low fiber diet - no nausea or vomiting Plan: Continue Antibiotics Continue pain management as needed continue medical management encourage ambulation and incentive spirometry will follow Dr. Casiano has seen and examined patient agrees with above
[2017-02-27] MEDS: ENOXAPARIN 60 MG/0.6 ML SYR SQ SCH ×2 (10:30→22:27)
--- NOTE | 2017-02-27 13:25 | Gastroenterology Progress Note ---
Progress Note Date of Service: Feb 27, 2017 Subjective Pt evaluation today including: conversation w/ patient, conversation w/ family , physical exam, chart review, lab review Patient being followed with a history of a contained perforation after a dilation of a ileocolonic stricture. 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 Hx of multiple abdominal surgeries. Follows with Dr. Laird. Pt has not significantly improved since yesterday denies specific GI c/o, has mild diffuse abdominal tenderness still Tolerating regular diet Continuing broad spectrum antibiotics Review of Systems Constitutional: No fever, No chills ENT: No problem reported Cardiac: No problem reported Abdomen: + see HPI Musculoskeletal: No problem reported Female : No problem reported Medications Current Inpatient Medications Medications (Trade) Dose Ordered Sig/Tone Route Start Time Stop Time Status Last Admin Dose Admin Ioversol (Optiray 320) 111 ml UD PRN IV 02/24/17 15:45 02/28/17 15:44 Ondansetron HCl (Zofran Inj) 4 mg Q6H PRN IV 02/24/17 18:15 03/26/17 18:14 Piperacillin Sod/ Tazobactam Sod 3.375 gm/Dextrose 115 ml @ 28.75 mls/ hr Q8@0200,1000,1800 IV 02/25/17 02:00 03/07/17 01:59 02/27/17 09:44 28.75 MLS/HR Hydromorphone HCl (Dilaudid Inj) 0.5 mg Q3HWA PRN IV 02/24/17 18:15 03/10/17 18:14 Piperacillin Sod/ Tazobactam Sod (Consult) 1 ea UD PRN N/A 02/24/17 18:30 03/26/17 18:29 Glucose (Glucose 40% Gel) 15-30 GRAMS 15 GRAMS... UD PRN PO 02/24/17 18:45 03/26/17 18:44 Glucose (Glucose Chew Tab) 4-8 Tablets 4 Tabl... UD PRN PO 02/24/17 18:45 03/26/17 18:44 Dextrose (Dextrose 50% 50ML Syringe) 25-50ML OF 50% DW IV FOR... UD PRN IV 02/24/17 18:45 03/26/17 18:44 Glucagon (Glucagon Inj) 1 mg UD PRN SQ 02/24/17 18:45 03/26/17 18:44 Pantoprazole Sodium 40 mg/ Syringe 10 ml @ 5 mls/min DAILY@, IV 02/24/17 21:00 03/26/17 20:59 02/27/17 08:47 5 MLS/MIN Aspirin (Ecotrin Tab) 81 mg QAM PO 02/26/17 09:00 03/28/17 08:59 02/27/17 08:52 81 MG Carbamazepine (Tegretol Tab) 300 mg BID PO 02/25/17 21:00 03/27/17 20:59 02/27/17 08:58 300 MG Enoxaparin Sodium (Lovenox Inj) 60 mg Q12H SQ 02/25/17 10:30 03/27/17 10:29 02/27/17 10:30 60 MG Fish Oil ([place]-3 (Purified Fish Oil) Cap) 1 gm BID PO 02/25/17 21:00 03/27/17 20:59 02/27/17 08:57 1 GM Folic Acid (Folvite Tab) 400 mcg QAM PO 02/26/17 09:00 03/28/17 08:59 02/27/17 08:52 400 MCG Furosemide (Lasix Tab) 40 mg DAILY PO 02/26/17 09:00 03/28/17 08:59 02/27/17 08:55 40 MG Gabapentin (Neurontin Tab) 1,200 mg HS PO 02/25/17 21:00 03/27/17 20:59 02/26/17 20:56 1,200 MG Levothyroxine Sodium (Synthroid Tab) 25 mcg DAILYBB PO 02/26/17 06:00 03/28/17 05:59 02/27/17 05:27 25 MCG Methenamine Hippurate (Urex Tab) 1 gm BID PO 02/25/17 21:00 03/07/17 20:59 02/27/17 08:58 1 GM Metolazone (Zaroxolyn Tab) 2.5 mg DAILY PRN PO 02/25/17 09:15 03/27/17 09:14 Metoprolol Tartrate (Lopressor Tab) 25 mg BID PO 02/25/17 21:00 03/27/17 20:59 02/27/17 09:03 25 MG Niacin (Niacin Tab) 500 mg QAM PO 02/26/17 09:00 03/28/17 08:59 02/27/17 08:56 500 MG Oxycodone/ Acetaminophen (Percocet 5-325mg Tab) 1 tab Q4H PRN PO 02/25/17 09:15 03/11/17 09:14 02/26/17 22:04 1 TAB Ropinirole HCl (Requip Tab) 3 mg HS PO 02/25/17 21:00 03/27/17 20:59 02/26/17 20:56 3 MG Ropinirole HCl (Requip Tab) 1 mg QAM PO 02/26/17 09:00 03/28/17 08:59 02/27/17 08:57 1 MG Ascorbic Acid (Vitamin C Tab) 1,000 mg BID PO 02/25/17 21:00 03/27/17 20:59 02/27/17 08:58 1,000 MG Calcium/Vitamin D (Caltrate Plus Tab) 1 tab DAILY PO 02/26/17 09:00 03/28/17 08:59 02/27/17 08:47 1 TAB Citalopram Hydrobromide (celeXA TAB) 10 mg QAM PO 02/26/17 09:00 03/28/17 08:59 02/27/17 08:52 10 MG Multivitamins/ Minerals (Multivitamin W/ Minerals Tab) 1 tab BID PO 02/25/17 21:00 03/27/17 20:59 02/27/17 08:56 1 TAB Insulin Human Regular (novoLIN-R) SLIDING SCALE IF C... ACHS SC 02/25/17 12:00 03/27/17 11:59 02/27/17 12:31 3 UNITS Rosuvastatin Calcium (Crestor Tab) 5 mg QAM PO 02/26/17 09:00 03/28/17 08:59 02/27/17 08:52 5 MG Miscellaneous Information (Order Awaiting Action) 1 ea QS N/A 02/25/17 16:00 03/27/17 15:59 Hydroxyurea (Hydrea Cap) 500 mg MoThSa@0900 PO 02/25/17 13:30 03/27/17 13:29 02/27/17 08:53 500 MG Hydroxyurea (Hydrea Cap) 500 mg BID PO 02/25/17 13:30 03/27/17 13:29 02/27/17 08:55 500 MG Acetaminophen (Tylenol Tab) 650 mg Q4H PRN PO 02/25/17 14:45 03/27/17 14:44 02/25/17 15:13 650 MG Fenofibrate (Fenofibrate Cap) 150 mg DAILY PO 02/28/17 09:00 03/30/17 08:59 Objective Vital Signs Date Time Temp Pulse Resp B/P (MAP) Pulse Ox O2 Delivery O2 Flow Rate FiO2 02/27/17 07:45 Room Air 02/27/17 07:09 36.5 64 20 154/74 (100) 97 Nasal Cannula 2.0 02/27/17 00:05 Nasal Cannula 2.0 02/26/17 23:07 36.3 71 16 149/70 (96) 98 Room Air 2.0 02/26/17 15:30 Room Air 02/26/17 15:22 36.6 86 18 150/70 (96) 98 Room Air 02/26/17 13:26 67 99 Physical Exam General Appearance: WD/WN, no apparent distress Eyes: PERRL ENT: hearing grossly normal Respiratory/Chest: lungs clear Cardiovascular: regular rate, rhythm Abdomen: normal bowel sounds, soft (nondistended, mild diffuse tenderness across mid to lower abdomen, no rebound or guarding) Extremities: no pedal edema Neurologic/Psych: alert, normal mood/affect, oriented x 3 Skin: normal color Laboratory Results Last 24 Hours Test 02/26/17 17:05 02/26/17 20:36 02/27/17 05:44 02/27/17 08:04 Bedside Glucose 148 mg/dl 226 mg/dl 151 mg/dl White Blood Count 6.47 K/uL Red Blood Count 3.05 M/uL Hemoglobin 11.0 g/dL Hematocrit 32.7 % Mean Corpuscular Volume 107.2 fL Mean Corpuscular Hemoglobin 36.1 pg Mean Corpuscular Hemoglobin Concent 33.6 g/dl RDW Standard Deviation 59.8 fL RDW Coefficient of Variation 15.1 % Platelet Count 408 K/uL Mean Platelet Volume 10.3 fL Sodium Level 138 mmol/L Potassium Level 4.3 mmol/L Chloride Level 104 mmol/L Carbon Dioxide Level 27 mmol/L Anion Gap 7.0 mmol/L Blood Urea Nitrogen 18 mg/dl Creatinine 0.97 mg/dl Est Creatinine Clear Calc Drug Dose 52.4 ml/min Estimated GFR () 64.4 Estimated GFR (Non- 55.5 BUN/Creatinine Ratio 18.1 Random Glucose 115 mg/dl Calcium Level 8.8 mg/dl Test 02/27/17 11:58 Bedside Glucose 162 mg/dl Assessment and Plan Patient with a 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 Recommendations Continue with low fiber diet Continue treatment with antibiotics, may covert to oral if symptoms do not continue to improve, consider repeat CT scan to reassess size of abscess Patient will likely require f/u at [facility] [place] as out patient for decision on next step (surgery vs endoscopic intervention) I saw and evaluated the patient. She does seem to be somewhat better today but still notes having discomfort Recommendations Continue with intravenous antibiotics If improved tomorrow we can transition to oral antibiotics and potential discharge
[2017-02-27 15:12] VITALS: BP 134/67; PULSE 70; TEMP 36.8; O2SAT 98
[2017-02-27] MEDS ORDERED: VANCOMYCIN TROUGH SCH (15:30)
--- NOTE | 2017-02-27 15:39 | Progress Note ---
Subjective Date of Service: Feb 27, 2017. 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 (4) Dehydration Status: Acute (5) Flu-like symptoms Status: Acute (6) Hematuria Status: Acute (7) Hematuria Status: Acute (8) History of DVT of lower extremity Status: Acute (9) Intra-abdominal abscess Status: Acute (10) Intra-abdominal abscess Status: Acute (11) Intractable nausea and vomiting Status: Acute (12) Left lower quadrant pain Status: Acute (13) Nausea, vomiting, and diarrhea Status: Acute (14) UTI (urinary tract infection) Status: Acute (15) Weak Status: Acute Review of Systems Constitutional: + weakness, No fever, No chills Respiratory: No cough, No sputum, No shortness of breath Cardiac: No chest pain Abdomen: + pain, No nausea, No vomiting, No diarrhea Heme: No abnormal bleeding/bruising Medications Current Inpatient Medications Medications (Trade) Dose Ordered Sig/Tone Route Start Time Stop Time Status Last Admin Dose Admin Ioversol (Optiray 320) 111 ml UD PRN IV 02/24/17 15:45 02/28/17 15:44 Ondansetron HCl (Zofran Inj) 4 mg Q6H PRN IV 02/24/17 18:15 03/26/17 18:14 Piperacillin Sod/ Tazobactam Sod 3.375 gm/Dextrose 115 ml @ 28.75 mls/ hr Q8@0200,1000,1800 IV 02/25/17 02:00 03/07/17 01:59 02/27/17 09:44 28.75 MLS/HR Hydromorphone HCl (Dilaudid Inj) 0.5 mg Q3HWA PRN IV 02/24/17 18:15 03/10/17 18:14 Piperacillin Sod/ Tazobactam Sod (Consult) 1 ea UD PRN N/A 02/24/17 18:30 03/26/17 18:29 Glucose (Glucose 40% Gel) 15-30 GRAMS 15 GRAMS... UD PRN PO 02/24/17 18:45 03/26/17 18:44 Glucose (Glucose Chew Tab) 4-8 Tablets 4 Tabl... UD PRN PO 02/24/17 18:45 03/26/17 18:44 Dextrose (Dextrose 50% 50ML Syringe) 25-50ML OF 50% DW IV FOR... UD PRN IV 02/24/17 18:45 03/26/17 18:44 Glucagon (Glucagon Inj) 1 mg UD PRN SQ 02/24/17 18:45 03/26/17 18:44 Aspirin (Ecotrin Tab) 81 mg QAM PO 02/26/17 09:00 03/28/17 08:59 02/27/17 08:52 81 MG Carbamazepine (Tegretol Tab) 300 mg BID PO 02/25/17 21:00 03/27/17 20:59 02/27/17 08:58 300 MG Enoxaparin Sodium (Lovenox Inj) 60 mg Q12H SQ 02/25/17 10:30 03/27/17 10:29 02/27/17 10:30 60 MG Fish Oil ([place]-3 (Purified Fish Oil) Cap) 1 gm BID PO 02/25/17 21:00 03/27/17 20:59 02/27/17 08:57 1 GM Folic Acid (Folvite Tab) 400 mcg QAM PO 02/26/17 09:00 03/28/17 08:59 02/27/17 08:52 400 MCG Furosemide (Lasix Tab) 40 mg DAILY PO 02/26/17 09:00 03/28/17 08:59 02/27/17 08:55 40 MG Gabapentin (Neurontin Tab) 1,200 mg HS PO 02/25/17 21:00 03/27/17 20:59 02/26/17 20:56 1,200 MG Levothyroxine Sodium (Synthroid Tab) 25 mcg DAILYBB PO 02/26/17 06:00 03/28/17 05:59 02/27/17 05:27 25 MCG Methenamine Hippurate (Urex Tab) 1 gm BID PO 02/25/17 21:00 03/07/17 20:59 02/27/17 08:58 1 GM Metolazone (Zaroxolyn Tab) 2.5 mg DAILY PRN PO 02/25/17 09:15 03/27/17 09:14 Metoprolol Tartrate (Lopressor Tab) 25 mg BID PO 02/25/17 21:00 03/27/17 20:59 02/27/17 09:03 25 MG Niacin (Niacin Tab) 500 mg QAM PO 02/26/17 09:00 03/28/17 08:59 02/27/17 08:56 500 MG Oxycodone/ Acetaminophen (Percocet 5-325mg Tab) 1 tab Q4H PRN PO 02/25/17 09:15 03/11/17 09:14 02/26/17 22:04 1 TAB Ropinirole HCl (Requip Tab) 3 mg HS PO 02/25/17 21:00 03/27/17 20:59 02/26/17 20:56 3 MG Ropinirole HCl (Requip Tab) 1 mg QAM PO 02/26/17 09:00 03/28/17 08:59 02/27/17 08:57 1 MG Ascorbic Acid (Vitamin C Tab) 1,000 mg BID PO 02/25/17 21:00 03/27/17 20:59 02/27/17 08:58 1,000 MG Calcium/Vitamin D (Caltrate Plus Tab) 1 tab DAILY PO 02/26/17 09:00 03/28/17 08:59 02/27/17 08:47 1 TAB Citalopram Hydrobromide (celeXA TAB) 10 mg QAM PO 02/26/17 09:00 03/28/17 08:59 02/27/17 08:52 10 MG Multivitamins/ Minerals (Multivitamin W/ Minerals Tab) 1 tab BID PO 02/25/17 21:00 03/27/17 20:59 02/27/17 08:56 1 TAB Insulin Human Regular (novoLIN-R) SLIDING SCALE IF C... ACHS SC 02/25/17 12:00 03/27/17 11:59 02/27/17 12:31 3 UNITS Rosuvastatin Calcium (Crestor Tab) 5 mg QAM PO 02/26/17 09:00 03/28/17 08:59 02/27/17 08:52 5 MG Miscellaneous Information (Order Awaiting Action) 1 ea QS N/A 02/25/17 16:00 03/27/17 15:59 Hydroxyurea (Hydrea Cap) 500 mg MoThSa@0900 PO 02/25/17 13:30 03/27/17 13:29 02/27/17 08:53 500 MG Hydroxyurea (Hydrea Cap) 500 mg BID PO 02/25/17 13:30 03/27/17 13:29 02/27/17 08:55 500 MG Acetaminophen (Tylenol Tab) 650 mg Q4H PRN PO 02/25/17 14:45 03/27/17 14:44 02/25/17 15:13 650 MG Fenofibrate (Fenofibrate Cap) 150 mg DAILY PO 02/28/17 09:00 03/30/17 08:59 Pantoprazole Sodium (Protonix Tab) 40 mg BID PO 02/27/17 21:00 03/29/17 20:59 Objective Vital Signs Date Time Temp Pulse Resp B/P (MAP) Pulse Ox O2 Delivery O2 Flow Rate FiO2 02/27/17 15:12 36.8 70 18 134/67 (89) 98 Room Air 02/27/17 07:45 Room Air 02/27/17 07:09 36.5 64 20 154/74 (100) 97 Nasal Cannula 2.0 02/27/17 00:05 Nasal Cannula 2.0 02/26/17 23:07 36.3 71 16 149/70 (96) 98 Room Air 2.0 02/26/17 15:30 Room Air Physical Exam General Appearance: no apparent distress Respiratory/Chest: lungs clear, normal breath sounds, no respiratory distress, no accessory muscle use Cardiovascular: regular rate, rhythm, no edema, no murmur Abdomen: non tender, soft, + distended Extremities: normal inspection, no pedal edema Neurologic/Psychiatric: no motor/sensory deficits, alert, normal mood/affect Laboratory Results Last 24 Hours Test 02/26/17 17:05 02/26/17 20:36 02/27/17 05:44 02/27/17 08:04 Bedside Glucose 148 mg/dl 226 mg/dl 151 mg/dl White Blood Count 6.47 K/uL Red Blood Count 3.05 M/uL Hemoglobin 11.0 g/dL Hematocrit 32.7 % Mean Corpuscular Volume 107.2 fL Mean Corpuscular Hemoglobin 36.1 pg Mean Corpuscular Hemoglobin Concent 33.6 g/dl RDW Standard Deviation 59.8 fL RDW Coefficient of Variation 15.1 % Platelet Count 408 K/uL Mean Platelet Volume 10.3 fL Sodium Level 138 mmol/L Potassium Level 4.3 mmol/L Chloride Level 104 mmol/L Carbon Dioxide Level 27 mmol/L Anion Gap 7.0 mmol/L Blood Urea Nitrogen 18 mg/dl Creatinine 0.97 mg/dl Est Creatinine Clear Calc Drug Dose 52.4 ml/min Estimated GFR () 64.4 Estimated GFR (Non- 55.5 BUN/Creatinine Ratio 18.1 Random Glucose 115 mg/dl Calcium Level 8.8 mg/dl Test 02/27/17 11:58 02/27/17 14:44 Bedside Glucose 162 mg/dl Assessment and Plan This is a 81 year old female with a PMH of DM2, HTN, hypothyroidism, hx. of DVT and PE on Lovenox, HLD, restless leg syndrome presents with abdominal pain and GI bleed Intraabdominal Abscess worsening Abdominal/Pelvis CT = increasing size of abscess; 3.5cm continue IV Zosyn for now appreciate general surgery and ID input switch to PO abx. when doing better continue low fiber diet Hx. of DVT/PE; Factor V Leiden Mutation continue Lovenox monitor H/H DM2 continue sliding scale insulin Hematuria outpatient follow-up monitor H/H Klebsiella UTI continue Zosyn Hx.of Seizure Disorder continue home medications TIA continue aspirin, statin Head CT no acute findings Hypothyroidism TSH wnl continue Synthroid Restless Leg Syndrome Requip resumed DNR/DNI
--- NOTE | 2017-02-27 18:44 | Infectious Disease Progress Nt ---
Progress Note Date of Service Feb 27, 2017. Subjective Pt evaluation today including: conversation w/ patient, physical exam, chart review, lab review, review of studies, conversation w/ data governance consultant, review of inpatient medication list No new complaints. Pain better. No fever. All Other Systems: Reviewed and Negative Medications Current Inpatient Medications Medications (Trade) Dose Ordered Sig/Tone Route Start Time Stop Time Status Last Admin Dose Admin Ioversol (Optiray 320) 111 ml UD PRN IV 02/24/17 15:45 02/28/17 15:44 Ondansetron HCl (Zofran Inj) 4 mg Q6H PRN IV 02/24/17 18:15 03/26/17 18:14 Hydromorphone HCl (Dilaudid Inj) 0.5 mg Q3HWA PRN IV 02/24/17 18:15 03/10/17 18:14 Glucose (Glucose 40% Gel) 15-30 GRAMS 15 GRAMS... UD PRN PO 02/24/17 18:45 03/26/17 18:44 Glucose (Glucose Chew Tab) 4-8 Tablets 4 Tabl... UD PRN PO 02/24/17 18:45 03/26/17 18:44 Dextrose (Dextrose 50% 50ML Syringe) 25-50ML OF 50% DW IV FOR... UD PRN IV 02/24/17 18:45 03/26/17 18:44 Glucagon (Glucagon Inj) 1 mg UD PRN SQ 02/24/17 18:45 03/26/17 18:44 Aspirin (Ecotrin Tab) 81 mg QAM PO 02/26/17 09:00 03/28/17 08:59 02/27/17 08:52 81 MG Carbamazepine (Tegretol Tab) 300 mg BID PO 02/25/17 21:00 03/27/17 20:59 02/27/17 08:58 300 MG Enoxaparin Sodium (Lovenox Inj) 60 mg Q12H SQ 02/25/17 10:30 03/27/17 10:29 02/27/17 10:30 60 MG Fish Oil ([place]-3 (Purified Fish Oil) Cap) 1 gm BID PO 02/25/17 21:00 03/27/17 20:59 02/27/17 08:57 1 GM Folic Acid (Folvite Tab) 400 mcg QAM PO 02/26/17 09:00 03/28/17 08:59 02/27/17 08:52 400 MCG Furosemide (Lasix Tab) 40 mg DAILY PO 02/26/17 09:00 03/28/17 08:59 02/27/17 08:55 40 MG Gabapentin (Neurontin Tab) 1,200 mg HS PO 02/25/17 21:00 03/27/17 20:59 02/26/17 20:56 1,200 MG Levothyroxine Sodium (Synthroid Tab) 25 mcg DAILYBB PO 02/26/17 06:00 03/28/17 05:59 02/27/17 05:27 25 MCG Methenamine Hippurate (Urex Tab) 1 gm BID PO 02/25/17 21:00 03/07/17 20:59 02/27/17 08:58 1 GM Metolazone (Zaroxolyn Tab) 2.5 mg DAILY PRN PO 02/25/17 09:15 03/27/17 09:14 Metoprolol Tartrate (Lopressor Tab) 25 mg BID PO 02/25/17 21:00 03/27/17 20:59 02/27/17 09:03 25 MG Niacin (Niacin Tab) 500 mg QAM PO 02/26/17 09:00 03/28/17 08:59 02/27/17 08:56 500 MG Oxycodone/ Acetaminophen (Percocet 5-325mg Tab) 1 tab Q4H PRN PO 02/25/17 09:15 03/11/17 09:14 02/26/17 22:04 1 TAB Ropinirole HCl (Requip Tab) 3 mg HS PO 02/25/17 21:00 03/27/17 20:59 02/26/17 20:56 3 MG Ropinirole HCl (Requip Tab) 1 mg QAM PO 02/26/17 09:00 03/28/17 08:59 02/27/17 08:57 1 MG Ascorbic Acid (Vitamin C Tab) 1,000 mg BID PO 02/25/17 21:00 03/27/17 20:59 02/27/17 08:58 1,000 MG Calcium/Vitamin D (Caltrate Plus Tab) 1 tab DAILY PO 02/26/17 09:00 03/28/17 08:59 02/27/17 08:47 1 TAB Citalopram Hydrobromide (celeXA TAB) 10 mg QAM PO 02/26/17 09:00 03/28/17 08:59 02/27/17 08:52 10 MG Multivitamins/ Minerals (Multivitamin W/ Minerals Tab) 1 tab BID PO 02/25/17 21:00 03/27/17 20:59 02/27/17 08:56 1 TAB Insulin Human Regular (novoLIN-R) SLIDING SCALE IF C... ACHS SC 02/25/17 12:00 03/27/17 11:59 02/27/17 12:31 3 UNITS Rosuvastatin Calcium (Crestor Tab) 5 mg QAM PO 02/26/17 09:00 03/28/17 08:59 02/27/17 08:52 5 MG Miscellaneous Information (Order Awaiting Action) 1 ea QS N/A 02/25/17 16:00 03/27/17 15:59 Hydroxyurea (Hydrea Cap) 500 mg MoThSa@0900 PO 02/25/17 13:30 03/27/17 13:29 02/27/17 08:53 500 MG Hydroxyurea (Hydrea Cap) 500 mg BID PO 02/25/17 13:30 03/27/17 13:29 02/27/17 08:55 500 MG Acetaminophen (Tylenol Tab) 650 mg Q4H PRN PO 02/25/17 14:45 03/27/17 14:44 02/25/17 15:13 650 MG Fenofibrate (Fenofibrate Cap) 150 mg DAILY PO 02/28/17 09:00 03/30/17 08:59 Pantoprazole Sodium (Protonix Tab) 40 mg BID PO 02/27/17 21:00 03/29/17 20:59 Ertapenem 1 gm/ Sodium Chloride 50 ml @ 120 mls/hr Q24H IV 02/27/17 18:45 03/09/17 18:44 UNV Objective Vital Signs Date Time Temp Pulse Resp B/P (MAP) Pulse Ox O2 Delivery O2 Flow Rate FiO2 02/27/17 15:30 Room Air 02/27/17 15:12 36.8 70 18 134/67 (89) 98 Room Air 02/27/17 07:45 Room Air 02/27/17 07:09 36.5 64 20 154/74 (100) 97 Nasal Cannula 2.0 02/27/17 00:05 Nasal Cannula 2.0 02/26/17 23:07 36.3 71 16 149/70 (96) 98 Room Air 2.0 Physical Exam General Appearance: WD/WN, no apparent distress Eyes: normal inspection, EOMI, funduscopic exam normal ENT: normal ENT inspection, pharynx normal Neck: supple, thyroid normal, trachea midline Respiratory/Chest: chest non-tender, lungs clear, normal breath sounds, no respiratory distress Cardiovascular: regular rate, rhythm, no gallop, no murmur Abdomen: normal bowel sounds, non tender, no organomegaly, + distended Extremities: non-tender, no calf tenderness Neurologic/Psychiatric: alert, oriented x 3 Skin: normal color, warm/dry, no rash Lymphatic: no adenopathy Laboratory Results Last 24 Hours Test 02/26/17 20:36 02/27/17 05:44 02/27/17 08:04 02/27/17 11:58 Bedside Glucose 226 mg/dl 151 mg/dl 162 mg/dl White Blood Count 6.47 K/uL Red Blood Count 3.05 M/uL Hemoglobin 11.0 g/dL Hematocrit 32.7 % Mean Corpuscular Volume 107.2 fL Mean Corpuscular Hemoglobin 36.1 pg Mean Corpuscular Hemoglobin Concent 33.6 g/dl RDW Standard Deviation 59.8 fL RDW Coefficient of Variation 15.1 % Platelet Count 408 K/uL Mean Platelet Volume 10.3 fL Sodium Level 138 mmol/L Potassium Level 4.3 mmol/L Chloride Level 104 mmol/L Carbon Dioxide Level 27 mmol/L Anion Gap 7.0 mmol/L Blood Urea Nitrogen 18 mg/dl Creatinine 0.97 mg/dl Est Creatinine Clear Calc Drug Dose 52.4 ml/min Estimated GFR () 64.4 Estimated GFR (Non- 55.5 BUN/Creatinine Ratio 18.1 Random Glucose 115 mg/dl Calcium Level 8.8 mg/dl Test 02/27/17 14:44 02/27/17 17:12 Heparin Anti-Xa Act, Low Molec Wt 1.23 IU/ML Bedside Glucose 221 mg/dl Assessment and Plan 81-year-old female with history of perforation following colonoscopy for stricture, now presents with persistent abscess formation, with blood cultures negative, urine growing Klebsiella. Given report of ESBL producing infection from [facility], I have decided change therapy to IV ertapenem 1 gram daily. Length of therapy will be determined by clinical response and follow-up CT scanning. Will discuss and follow.
[2017-02-27] MEDS: ERTAPENEM IV 1 GM in SODIUM CHLOR 0.9% AD-VAN 50ML 50 ML IV SCH (19:57)
[2017-02-27 21:15] VITALS: BP 152/70; PULSE 84
[2017-02-27] MEDS: GABAPENTIN 600 MG TAB PO SCH (21:19)
[2017-02-27] MEDS: PANTOprazole SOD 40 MG TAB PO SCH (21:20)
[2017-02-27] MEDS: OXYCODONE/ACETAMINOPHEN 5-325 TAB PO PRN (21:32)
[2017-02-27 23:11] VITALS: BP 122/67; PULSE 66; TEMP 36.8; O2SAT 96
[2017-02-28] MEDS: LEVOTHYROXINE 25 MCG TAB PO SCH (05:51)
[2017-02-28 06:55] LABS: HEMATOCRIT 30.9 % (37-47); MEAN CELL VOLUME 106.9 fL (80-100); MEAN CORPUSCULAR HEMOGLOBIN 36.3 pg (25-34); MEAN PLATELET VOLUME 9.6 fL (7.4-10.4); PLATELET COUNT 392 K/uL (130-400); RED BLOOD COUNT 2.89 M/uL (4.2-5.4); WHITE BLOOD COUNT 5.88 K/uL (4.8-10.8)
[2017-02-28 07:19] LABS: CREATININE 0.89 mg/dl (0.60-1.20); POTASSIUM 4.1 mmol/L (3.5-5.1)
--- NOTE | 2017-02-28 07:28 | Surgery Progress Note ---
Surgery Progress Note Date of Service Feb 28, 2017. Subjective + bowel movement, + flatus, No nausea, No vomiting Feels better this AM Objective Vital Signs: Date Time Temp Pulse Resp B/P (MAP) Pulse Ox O2 Delivery O2 Flow Rate FiO2 02/28/17 00:35 Nasal Cannula 2.0 02/27/17 23:11 36.8 66 16 122/67 (85) 96 Nasal Cannula 2.0 02/27/17 21:15 84 152/70 (97) 02/27/17 15:30 Room Air 02/27/17 15:12 36.8 70 18 134/67 (89) 98 Room Air 02/27/17 07:45 Room Air Abdomen: non distended, soft, + tenderness (less again today) Laboratory Results: Results Past 24 Hours Test 02/27/17 08:04 02/27/17 11:58 02/27/17 14:44 02/27/17 17:12 Range/Units Bedside Glucose 151 162 221 70-90 mg/dl Heparin Anti-Xa Act, Low Molec Wt 1.23 0 - <0.10 IU/ML Test 02/27/17 20:31 02/28/17 06:32 Range/Units Bedside Glucose 191 70-90 mg/dl White Blood Count 5.88 4.8-10.8 K/uL Red Blood Count 2.89 4.2-5.4 M/uL Hemoglobin 10.5 12.0-16.0 g/dL Hematocrit 30.9 37-47 % Mean Corpuscular Volume 106.9 80-100 fL Mean Corpuscular Hemoglobin 36.3 25-34 pg Mean Corpuscular Hemoglobin Concent 34.0 32-36 g/dl RDW Standard Deviation 58.8 36.4-46.3 fL RDW Coefficient of Variation 15.0 11.5-14.5 % Platelet Count 392 130-400 K/uL Mean Platelet Volume 9.6 7.4-10.4 fL Sodium Level 139 136-145 mmol/L Potassium Level 4.1 3.5-5.1 mmol/L Chloride Level 105 98-107 mmol/L Carbon Dioxide Level 27 21-32 mmol/L Anion Gap 7.0 3-11 mmol/L Blood Urea Nitrogen 20 7-18 mg/dl Creatinine 0.89 0.60-1.20 mg/dl Est Creatinine Clear Calc Drug Dose 57.1 ml/min Estimated GFR () 71.4 Estimated GFR (Non- 61.6 BUN/Creatinine Ratio 22.0 10-20 Random Glucose 107 70-99 mg/dl Calcium Level 9.0 8.5-10.1 mg/dl Assessment & Plan 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
[2017-02-28 07:51] VITALS: BP 122/72; PULSE 80; TEMP 36.4; O2SAT 98
[2017-02-28 07:53] VITALS: O2SAT 98
[2017-02-28] MEDS: CALCIUM 600MG + VIT D 400 IU TAB PO SCH (08:44)
[2017-02-28] MEDS: CITALOPRAM 20 MG TAB PO SCH (08:46)
[2017-02-28] MEDS: ROSUVASTATIN CALCIUM 5 MG TAB PO SCH (08:47)
[2017-02-28] MEDS: ASPIRIN 81 MG ECTAB PO SCH (08:47)
[2017-02-28] MEDS: FENOFIBRATE 150 MG PO SCH (08:48)
[2017-02-28] MEDS: FoLIC ACID TAB 400 MCG TAB PO SCH (08:49)
[2017-02-28] MEDS: HYDROXYUREA 500 MG CAP PO SCH ×3 (08:50→21:58)
[2017-02-28] MEDS: FUROSEMIDE 40 MG TAB PO SCH (08:52)
[2017-02-28] MEDS: METOPROLOL TARTRATE 25 MG TAB PO SCH ×2 (08:53→21:47)
[2017-02-28] MEDS: NIACIN 500 MG TAB IMMEDIATE RELEASE PO SCH (08:54)
[2017-02-28] MEDS: CEROVITE ADV FORMULA TAB PO SCH ×2 (08:54→21:47)
[2017-02-28] MEDS: PANTOprazole SOD 40 MG TAB PO SCH ×2 (08:55→21:48)
[2017-02-28] MEDS: OMEGA-3 (PURIFIED FISH OIL) 1 GM CAP PO SCH ×2 (08:55→21:49)
[2017-02-28] MEDS: ROPINIROLE HCL 1 MG TAB PO SCH ×2 (08:56→21:48)
[2017-02-28] MEDS: CARBAMAZEPINE 200 MG TAB PO SCH ×2 (08:58→21:46)
[2017-02-28] MEDS: METHENAMINE HIPPURATE 1 GM TAB PO SCH ×2 (09:00→21:46)
[2017-02-28] MEDS: ASCORBIC ACID 500 MG TAB PO SCH ×2 (09:01→21:49)
[2017-02-28] MEDS: INSULIN HUMAN REGULAR SC SCH ×4 (09:27→21:57)
[2017-02-28] MEDS: ENOXAPARIN 60 MG/0.6 ML SYR SQ SCH ×2 (09:38→21:59)
--- NOTE | 2017-02-28 11:18 | Progress Note ---
Subjective Date of Service: Feb 28, 2017. Subjective Pt evaluation today including: conversation w/ patient, physical exam, lab review, review of studies, review of inpatient medication list Saw/examined the patient in room 384 Ambulated in the hallways today No significant pain, tolerated breakfast No fevers/chills Problem List Medical Problems: (1) Acute urinary retention Status: Acute (2) Bladder mass Status: Acute (3) Current use of meterman anticoagulation Status: Acute (4) Dehydration Status: Acute (5) Flu-like symptoms Status: Acute (6) Hematuria Status: Acute (7) Hematuria Status: Acute (8) History of DVT of lower extremity Status: Acute (9) Intra-abdominal abscess Status: Acute (10) Intra-abdominal abscess Status: Acute (11) Intractable nausea and vomiting Status: Acute (12) Left lower quadrant pain Status: Acute (13) Nausea, vomiting, and diarrhea Status: Acute (14) UTI (urinary tract infection) Status: Acute (15) Weak Status: Acute Review of Systems Constitutional: No fever, No chills, No weakness Respiratory: No shortness of breath Cardiac: No chest pain Abdomen: No pain, No nausea, No vomiting, No diarrhea, No constipation, No GI bleeding Heme: No abnormal bleeding/bruising Medications Current Inpatient Medications Medications (Trade) Dose Ordered Sig/Tone Route Start Time Stop Time Status Last Admin Dose Admin Ioversol (Optiray 320) 111 ml UD PRN IV 02/24/17 15:45 02/28/17 15:44 Ondansetron HCl (Zofran Inj) 4 mg Q6H PRN IV 02/24/17 18:15 03/26/17 18:14 Hydromorphone HCl (Dilaudid Inj) 0.5 mg Q3HWA PRN IV 02/24/17 18:15 03/10/17 18:14 Glucose (Glucose 40% Gel) 15-30 GRAMS 15 GRAMS... UD PRN PO 02/24/17 18:45 03/26/17 18:44 Glucose (Glucose Chew Tab) 4-8 Tablets 4 Tabl... UD PRN PO 02/24/17 18:45 03/26/17 18:44 Dextrose (Dextrose 50% 50ML Syringe) 25-50ML OF 50% DW IV FOR... UD PRN IV 02/24/17 18:45 03/26/17 18:44 Glucagon (Glucagon Inj) 1 mg UD PRN SQ 02/24/17 18:45 03/26/17 18:44 Aspirin (Ecotrin Tab) 81 mg QAM PO 02/26/17 09:00 03/28/17 08:59 02/28/17 08:47 81 MG Carbamazepine (Tegretol Tab) 300 mg BID PO 02/25/17 21:00 03/27/17 20:59 02/28/17 08:58 300 MG Enoxaparin Sodium (Lovenox Inj) 60 mg Q12H SQ 02/25/17 10:30 03/27/17 10:29 02/28/17 09:38 60 MG Fish Oil ([place]-3 (Purified Fish Oil) Cap) 1 gm BID PO 02/25/17 21:00 03/27/17 20:59 02/28/17 08:55 1 GM Folic Acid (Folvite Tab) 400 mcg QAM PO 02/26/17 09:00 03/28/17 08:59 02/28/17 08:49 400 MCG Furosemide (Lasix Tab) 40 mg DAILY PO 02/26/17 09:00 03/28/17 08:59 02/28/17 08:52 40 MG Gabapentin (Neurontin Tab) 1,200 mg HS PO 02/25/17 21:00 03/27/17 20:59 02/27/17 21:19 1,200 MG Levothyroxine Sodium (Synthroid Tab) 25 mcg DAILYBB PO 02/26/17 06:00 03/28/17 05:59 02/28/17 05:51 25 MCG Methenamine Hippurate (Urex Tab) 1 gm BID PO 02/25/17 21:00 03/07/17 20:59 02/28/17 09:00 1 GM Metolazone (Zaroxolyn Tab) 2.5 mg DAILY PRN PO 02/25/17 09:15 03/27/17 09:14 Metoprolol Tartrate (Lopressor Tab) 25 mg BID PO 02/25/17 21:00 03/27/17 20:59 02/28/17 08:53 25 MG Niacin (Niacin Tab) 500 mg QAM PO 02/26/17 09:00 03/28/17 08:59 02/28/17 08:54 500 MG Oxycodone/ Acetaminophen (Percocet 5-325mg Tab) 1 tab Q4H PRN PO 02/25/17 09:15 03/11/17 09:14 02/27/17 21:32 1 TAB Ropinirole HCl (Requip Tab) 3 mg HS PO 02/25/17 21:00 03/27/17 20:59 02/27/17 21:20 3 MG Ropinirole HCl (Requip Tab) 1 mg QAM PO 02/26/17 09:00 03/28/17 08:59 02/28/17 08:56 1 MG Ascorbic Acid (Vitamin C Tab) 1,000 mg BID PO 02/25/17 21:00 03/27/17 20:59 02/28/17 09:01 1,000 MG Calcium/Vitamin D (Caltrate Plus Tab) 1 tab DAILY PO 02/26/17 09:00 03/28/17 08:59 02/28/17 08:44 1 TAB Citalopram Hydrobromide (celeXA TAB) 10 mg QAM PO 02/26/17 09:00 03/28/17 08:59 02/28/17 08:46 10 MG Multivitamins/ Minerals (Multivitamin W/ Minerals Tab) 1 tab BID PO 02/25/17 21:00 03/27/17 20:59 02/28/17 08:54 1 TAB Insulin Human Regular (novoLIN-R) SLIDING SCALE IF C... ACHS SC 02/25/17 12:00 03/27/17 11:59 02/28/17 09:27 3 UNITS Rosuvastatin Calcium (Crestor Tab) 5 mg QAM PO 02/26/17 09:00 03/28/17 08:59 02/28/17 08:47 5 MG Miscellaneous Information (Order Awaiting Action) 1 ea QS N/A 02/25/17 16:00 03/27/17 15:59 Hydroxyurea (Hydrea Cap) 500 mg MoThSa@0900 PO 02/25/17 13:30 03/27/17 13:29 02/27/17 08:53 500 MG Hydroxyurea (Hydrea Cap) 500 mg BID PO 02/25/17 13:30 03/27/17 13:29 02/28/17 09:28 500 MG Acetaminophen (Tylenol Tab) 650 mg Q4H PRN PO 02/25/17 14:45 03/27/17 14:44 02/25/17 15:13 650 MG Fenofibrate (Fenofibrate Cap) 150 mg DAILY PO 02/28/17 09:00 03/30/17 08:59 02/28/17 08:48 150 MG Pantoprazole Sodium (Protonix Tab) 40 mg BID PO 02/27/17 21:00 03/29/17 20:59 02/28/17 08:55 40 MG Ertapenem 1 gm/ Sodium Chloride 50 ml @ 120 mls/hr Q24H IV 02/27/17 19:00 03/09/17 18:59 02/27/17 19:57 120 MLS/HR Objective Vital Signs Date Time Temp Pulse Resp B/P (MAP) Pulse Ox O2 Delivery O2 Flow Rate FiO2 02/28/17 07:53 98 Room Air 02/28/17 07:51 36.4 80 12 122/72 (89) 98 Room Air 02/28/17 07:28 Room Air 98 02/28/17 00:35 Nasal Cannula 2.0 02/27/17 23:11 36.8 66 16 122/67 (85) 96 Nasal Cannula 2.0 02/27/17 21:15 84 152/70 (97) 02/27/17 15:30 Room Air 02/27/17 15:12 36.8 70 18 134/67 (89) 98 Room Air Physical Exam General Appearance: no apparent distress Respiratory/Chest: lungs clear, normal breath sounds, no respiratory distress, no accessory muscle use Cardiovascular: regular rate, rhythm, no edema, no murmur Abdomen: normal bowel sounds, soft, + distended Extremities: normal inspection, no pedal edema Neurologic/Psychiatric: no motor/sensory deficits, alert, normal mood/affect Laboratory Results Last 24 Hours Test 02/27/17 11:58 02/27/17 14:44 02/27/17 17:12 02/27/17 20:31 Bedside Glucose 162 mg/dl 221 mg/dl 191 mg/dl Heparin Anti-Xa Act, Low Molec Wt 1.23 IU/ML Test 02/28/17 06:32 02/28/17 07:54 White Blood Count 5.88 K/uL Red Blood Count 2.89 M/uL Hemoglobin 10.5 g/dL Hematocrit 30.9 % Mean Corpuscular Volume 106.9 fL Mean Corpuscular Hemoglobin 36.3 pg Mean Corpuscular Hemoglobin Concent 34.0 g/dl RDW Standard Deviation 58.8 fL RDW Coefficient of Variation 15.0 % Platelet Count 392 K/uL Mean Platelet Volume 9.6 fL Sodium Level 139 mmol/L Potassium Level 4.1 mmol/L Chloride Level 105 mmol/L Carbon Dioxide Level 27 mmol/L Anion Gap 7.0 mmol/L Blood Urea Nitrogen 20 mg/dl Creatinine 0.89 mg/dl Est Creatinine Clear Calc Drug Dose 57.1 ml/min Estimated GFR () 71.4 Estimated GFR (Non- 61.6 BUN/Creatinine Ratio 22.0 Random Glucose 107 mg/dl Calcium Level 9.0 mg/dl Bedside Glucose 128 mg/dl Assessment and Plan This is a 81 year old female with a PMH of DM2, HTN, hypothyroidism, hx. of DVT and PE on Lovenox, HLD, restless leg syndrome presents with abdominal pain and GI bleed Intraabdominal Abscess 02/28 IV Invanz started by ID continue low fiber diet repeat CT should be done in a few days to determine length of treatment 02/27 worsening Abdominal/Pelvis CT = increasing size of abscess; 3.5cm continue IV Zosyn for now appreciate general surgery and ID input switch to PO abx. when doing better continue low fiber diet Hx. of DVT/PE; Factor V Leiden Mutation continue Lovenox monitor H/H DM2 continue sliding scale insulin Hematuria outpatient follow-up monitor H/H Klebsiella UTI continue Invanz Hx.of Seizure Disorder continue home medications TIA continue aspirin, statin Head CT no acute findings Hypothyroidism TSH wnl continue Synthroid Restless Leg Syndrome Requip resumed Hx. of Lung Nodule will check a CXR PA, lateral, oblique DNR/DNI
--- NOTE | 2017-02-28 13:25 | DIAGNOSTIC IMAGING REPORT ---
Chest-pa, lat AND OBLIQUE VIEWS CLINICAL HISTORY: f/u on nodule lung nodule COMPARISON STUDY: 02/16/2017 FINDINGS: Oblique films of the chest do not demonstrate a consistent right suprahilar nodule there is suggestion, however of a possible nodule in the right posterior oblique projection are in lungs otherwise are clear. IMPRESSION: Oblique filming suggests the possibility of a nodular density of the right upper lung. CT of the chest is recommended as follow-up. The above report was generated using voice recognition software. It may contain grammatical, syntax or spelling errors. Electronically signed by: Marcos Gutiérrez M.D. 02/28/2017 1:24 PM Dictated Date/Time: 02/28/2017 1:22 PM
--- NOTE | 2017-02-28 15:18 | Gastroenterology Progress Note ---
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 Hx of multiple abdominal surgeries. Follows with Dr. Laird. Pt feeling some better today abdomen continues to be tender to exam, otherwise feels comfortable at rest does not offer any new GI c/o today ID on board Tolerating regular diet Continuing broad spectrum antibiotics, repeat CT planned in next few days Review of Systems Constitutional: No fever, No chills Respiratory: No cough, No shortness of breath Abdomen: + see HPI Musculoskeletal: No problem reported Medications Current Inpatient Medications Medications (Trade) Dose Ordered Sig/Tone Route Start Time Stop Time Status Last Admin Dose Admin Ioversol (Optiray 320) 111 ml UD PRN IV 02/24/17 15:45 02/28/17 15:44 Ondansetron HCl (Zofran Inj) 4 mg Q6H PRN IV 02/24/17 18:15 03/26/17 18:14 Hydromorphone HCl (Dilaudid Inj) 0.5 mg Q3HWA PRN IV 02/24/17 18:15 03/10/17 18:14 Glucose (Glucose 40% Gel) 15-30 GRAMS 15 GRAMS... UD PRN PO 02/24/17 18:45 03/26/17 18:44 Glucose (Glucose Chew Tab) 4-8 Tablets 4 Tabl... UD PRN PO 02/24/17 18:45 03/26/17 18:44 Dextrose (Dextrose 50% 50ML Syringe) 25-50ML OF 50% DW IV FOR... UD PRN IV 02/24/17 18:45 03/26/17 18:44 Glucagon (Glucagon Inj) 1 mg UD PRN SQ 02/24/17 18:45 03/26/17 18:44 Aspirin (Ecotrin Tab) 81 mg QAM PO 02/26/17 09:00 03/28/17 08:59 02/28/17 08:47 81 MG Carbamazepine (Tegretol Tab) 300 mg BID PO 02/25/17 21:00 03/27/17 20:59 02/28/17 08:58 300 MG Enoxaparin Sodium (Lovenox Inj) 60 mg Q12H SQ 02/25/17 10:30 03/27/17 10:29 02/28/17 09:38 60 MG Fish Oil ([place]-3 (Purified Fish Oil) Cap) 1 gm BID PO 02/25/17 21:00 03/27/17 20:59 02/28/17 08:55 1 GM Folic Acid (Folvite Tab) 400 mcg QAM PO 02/26/17 09:00 03/28/17 08:59 02/28/17 08:49 400 MCG Furosemide (Lasix Tab) 40 mg DAILY PO 02/26/17 09:00 03/28/17 08:59 02/28/17 08:52 40 MG Gabapentin (Neurontin Tab) 1,200 mg HS PO 02/25/17 21:00 03/27/17 20:59 02/27/17 21:19 1,200 MG Levothyroxine Sodium (Synthroid Tab) 25 mcg DAILYBB PO 02/26/17 06:00 03/28/17 05:59 02/28/17 05:51 25 MCG Methenamine Hippurate (Urex Tab) 1 gm BID PO 02/25/17 21:00 03/07/17 20:59 02/28/17 09:00 1 GM Metolazone (Zaroxolyn Tab) 2.5 mg DAILY PRN PO 02/25/17 09:15 03/27/17 09:14 Metoprolol Tartrate (Lopressor Tab) 25 mg BID PO 02/25/17 21:00 03/27/17 20:59 02/28/17 08:53 25 MG Niacin (Niacin Tab) 500 mg QAM PO 02/26/17 09:00 03/28/17 08:59 02/28/17 08:54 500 MG Oxycodone/ Acetaminophen (Percocet 5-325mg Tab) 1 tab Q4H PRN PO 02/25/17 09:15 03/11/17 09:14 02/27/17 21:32 1 TAB Ropinirole HCl (Requip Tab) 3 mg HS PO 02/25/17 21:00 03/27/17 20:59 02/27/17 21:20 3 MG Ropinirole HCl (Requip Tab) 1 mg QAM PO 02/26/17 09:00 03/28/17 08:59 02/28/17 08:56 1 MG Ascorbic Acid (Vitamin C Tab) 1,000 mg BID PO 02/25/17 21:00 03/27/17 20:59 02/28/17 09:01 1,000 MG Calcium/Vitamin D (Caltrate Plus Tab) 1 tab DAILY PO 02/26/17 09:00 03/28/17 08:59 02/28/17 08:44 1 TAB Citalopram Hydrobromide (celeXA TAB) 10 mg QAM PO 02/26/17 09:00 03/28/17 08:59 02/28/17 08:46 10 MG Multivitamins/ Minerals (Multivitamin W/ Minerals Tab) 1 tab BID PO 02/25/17 21:00 03/27/17 20:59 02/28/17 08:54 1 TAB Insulin Human Regular (novoLIN-R) SLIDING SCALE IF C... ACHS SC 02/25/17 12:00 03/27/17 11:59 02/28/17 13:03 3 UNITS Rosuvastatin Calcium (Crestor Tab) 5 mg QAM PO 02/26/17 09:00 03/28/17 08:59 02/28/17 08:47 5 MG Miscellaneous Information (Order Awaiting Action) 1 ea QS N/A 02/25/17 16:00 03/27/17 15:59 Hydroxyurea (Hydrea Cap) 500 mg MoThSa@0900 PO 02/25/17 13:30 03/27/17 13:29 02/27/17 08:53 500 MG Hydroxyurea (Hydrea Cap) 500 mg BID PO 02/25/17 13:30 03/27/17 13:29 02/28/17 09:28 500 MG Acetaminophen (Tylenol Tab) 650 mg Q4H PRN PO 02/25/17 14:45 03/27/17 14:44 02/25/17 15:13 650 MG Fenofibrate (Fenofibrate Cap) 150 mg DAILY PO 02/28/17 09:00 03/30/17 08:59 02/28/17 08:48 150 MG Pantoprazole Sodium (Protonix Tab) 40 mg BID PO 02/27/17 21:00 03/29/17 20:59 02/28/17 08:55 40 MG Ertapenem 1 gm/ Sodium Chloride 50 ml @ 120 mls/hr Q24H IV 02/27/17 19:00 03/09/17 18:59 02/27/17 19:57 120 MLS/HR Objective Vital Signs Date Time Temp Pulse Resp B/P (MAP) Pulse Ox O2 Delivery O2 Flow Rate FiO2 02/28/17 07:53 98 Room Air 02/28/17 07:51 36.4 80 12 122/72 (89) 98 Room Air 02/28/17 07:28 Room Air 98 02/28/17 00:35 Nasal Cannula 2.0 02/27/17 23:11 36.8 66 16 122/67 (85) 96 Nasal Cannula 2.0 02/27/17 21:15 84 152/70 (97) 02/27/17 15:30 Room Air Physical Exam General Appearance: WD/WN, no apparent distress (examined in a chair) Respiratory/Chest: normal breath sounds, no respiratory distress, no accessory muscle use Cardiovascular: regular rate, rhythm Abdomen: normal bowel sounds, soft (mild tenderness in lower abdomen without rebound or guarding) Extremities: no pedal edema Neurologic/Psych: alert, normal mood/affect, oriented x 3 Laboratory Results Last 24 Hours Test 02/27/17 17:12 02/27/17 20:31 02/28/17 06:32 02/28/17 07:54 Bedside Glucose 221 mg/dl 191 mg/dl 128 mg/dl White Blood Count 5.88 K/uL Red Blood Count 2.89 M/uL Hemoglobin 10.5 g/dL Hematocrit 30.9 % Mean Corpuscular Volume 106.9 fL Mean Corpuscular Hemoglobin 36.3 pg Mean Corpuscular Hemoglobin Concent 34.0 g/dl RDW Standard Deviation 58.8 fL RDW Coefficient of Variation 15.0 % Platelet Count 392 K/uL Mean Platelet Volume 9.6 fL Sodium Level 139 mmol/L Potassium Level 4.1 mmol/L Chloride Level 105 mmol/L Carbon Dioxide Level 27 mmol/L Anion Gap 7.0 mmol/L Blood Urea Nitrogen 20 mg/dl Creatinine 0.89 mg/dl Est Creatinine Clear Calc Drug Dose 57.1 ml/min Estimated GFR () 71.4 Estimated GFR (Non- 61.6 BUN/Creatinine Ratio 22.0 Random Glucose 107 mg/dl Calcium Level 9.0 mg/dl Test 02/28/17 11:56 Bedside Glucose 136 mg/dl Assessment and Plan Patient with a 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 Recommendations Continue with low fiber diet Continue treatment with antibiotics, may covert to oral CT planned in next few days to assess Patient will likely require f/u at [facility] out patient for decision on next step (surgery vs endoscopic intervention) No new GI recommendations at this time I saw and evaluated the patient. She does report feeling somewhat better but notes having persistent discomfort. We should continue with her present dosing of antibiotics and plan for repeat CT scan on Monday.
[2017-02-28 15:24] VITALS: BP 135/74; PULSE 70; TEMP 36.7; O2SAT 99
--- NOTE | 2017-02-28 15:25 | Infectious Disease Progress Nt ---
Progress Note Date of Service Feb 28, 2017. Subjective Pt evaluation today including: conversation w/ patient, physical exam, chart review, lab review, review of studies, conversation w/ [facility] consultant, review of inpatient medication list Continues to improve with less abdominal pain. No fever. Tolerating ertapenem without apparent difficulty. All Other Systems: Reviewed and Negative Medications Current Inpatient Medications Medications (Trade) Dose Ordered Sig/Tone Route Start Time Stop Time Status Last Admin Dose Admin Ioversol (Optiray 320) 111 ml UD PRN IV 02/24/17 15:45 02/28/17 15:44 Ondansetron HCl (Zofran Inj) 4 mg Q6H PRN IV 02/24/17 18:15 03/26/17 18:14 Hydromorphone HCl (Dilaudid Inj) 0.5 mg Q3HWA PRN IV 02/24/17 18:15 03/10/17 18:14 Glucose (Glucose 40% Gel) 15-30 GRAMS 15 GRAMS... UD PRN PO 02/24/17 18:45 03/26/17 18:44 Glucose (Glucose Chew Tab) 4-8 Tablets 4 Tabl... UD PRN PO 02/24/17 18:45 03/26/17 18:44 Dextrose (Dextrose 50% 50ML Syringe) 25-50ML OF 50% DW IV FOR... UD PRN IV 02/24/17 18:45 03/26/17 18:44 Glucagon (Glucagon Inj) 1 mg UD PRN SQ 02/24/17 18:45 03/26/17 18:44 Aspirin (Ecotrin Tab) 81 mg QAM PO 02/26/17 09:00 03/28/17 08:59 02/28/17 08:47 81 MG Carbamazepine (Tegretol Tab) 300 mg BID PO 02/25/17 21:00 03/27/17 20:59 02/28/17 08:58 300 MG Enoxaparin Sodium (Lovenox Inj) 60 mg Q12H SQ 02/25/17 10:30 03/27/17 10:29 02/28/17 09:38 60 MG Fish Oil ([place]-3 (Purified Fish Oil) Cap) 1 gm BID PO 02/25/17 21:00 03/27/17 20:59 02/28/17 08:55 1 GM Folic Acid (Folvite Tab) 400 mcg QAM PO 02/26/17 09:00 03/28/17 08:59 02/28/17 08:49 400 MCG Furosemide (Lasix Tab) 40 mg DAILY PO 02/26/17 09:00 03/28/17 08:59 02/28/17 08:52 40 MG Gabapentin (Neurontin Tab) 1,200 mg HS PO 02/25/17 21:00 03/27/17 20:59 02/27/17 21:19 1,200 MG Levothyroxine Sodium (Synthroid Tab) 25 mcg DAILYBB PO 02/26/17 06:00 03/28/17 05:59 02/28/17 05:51 25 MCG Methenamine Hippurate (Urex Tab) 1 gm BID PO 02/25/17 21:00 03/07/17 20:59 02/28/17 09:00 1 GM Metolazone (Zaroxolyn Tab) 2.5 mg DAILY PRN PO 02/25/17 09:15 03/27/17 09:14 Metoprolol Tartrate (Lopressor Tab) 25 mg BID PO 02/25/17 21:00 03/27/17 20:59 02/28/17 08:53 25 MG Niacin (Niacin Tab) 500 mg QAM PO 02/26/17 09:00 03/28/17 08:59 02/28/17 08:54 500 MG Oxycodone/ Acetaminophen (Percocet 5-325mg Tab) 1 tab Q4H PRN PO 02/25/17 09:15 03/11/17 09:14 02/27/17 21:32 1 TAB Ropinirole HCl (Requip Tab) 3 mg HS PO 02/25/17 21:00 03/27/17 20:59 02/27/17 21:20 3 MG Ropinirole HCl (Requip Tab) 1 mg QAM PO 02/26/17 09:00 03/28/17 08:59 02/28/17 08:56 1 MG Ascorbic Acid (Vitamin C Tab) 1,000 mg BID PO 02/25/17 21:00 03/27/17 20:59 02/28/17 09:01 1,000 MG Calcium/Vitamin D (Caltrate Plus Tab) 1 tab DAILY PO 02/26/17 09:00 03/28/17 08:59 02/28/17 08:44 1 TAB Citalopram Hydrobromide (celeXA TAB) 10 mg QAM PO 02/26/17 09:00 03/28/17 08:59 02/28/17 08:46 10 MG Multivitamins/ Minerals (Multivitamin W/ Minerals Tab) 1 tab BID PO 02/25/17 21:00 03/27/17 20:59 02/28/17 08:54 1 TAB Insulin Human Regular (novoLIN-R) SLIDING SCALE IF C... ACHS SC 02/25/17 12:00 03/27/17 11:59 02/28/17 13:03 3 UNITS Rosuvastatin Calcium (Crestor Tab) 5 mg QAM PO 02/26/17 09:00 03/28/17 08:59 02/28/17 08:47 5 MG Miscellaneous Information (Order Awaiting Action) 1 ea QS N/A 02/25/17 16:00 03/27/17 15:59 Hydroxyurea (Hydrea Cap) 500 mg MoThSa@0900 PO 02/25/17 13:30 03/27/17 13:29 02/27/17 08:53 500 MG Hydroxyurea (Hydrea Cap) 500 mg BID PO 02/25/17 13:30 03/27/17 13:29 02/28/17 09:28 500 MG Acetaminophen (Tylenol Tab) 650 mg Q4H PRN PO 02/25/17 14:45 03/27/17 14:44 02/25/17 15:13 650 MG Fenofibrate (Fenofibrate Cap) 150 mg DAILY PO 02/28/17 09:00 03/30/17 08:59 02/28/17 08:48 150 MG Pantoprazole Sodium (Protonix Tab) 40 mg BID PO 02/27/17 21:00 03/29/17 20:59 02/28/17 08:55 40 MG Ertapenem 1 gm/ Sodium Chloride 50 ml @ 120 mls/hr Q24H IV 02/27/17 19:00 03/09/17 18:59 02/27/17 19:57 120 MLS/HR Objective Vital Signs Date Time Temp Pulse Resp B/P (MAP) Pulse Ox O2 Delivery O2 Flow Rate FiO2 02/28/17 07:53 98 Room Air 02/28/17 07:51 36.4 80 12 122/72 (89) 98 Room Air 02/28/17 07:28 Room Air 98 02/28/17 00:35 Nasal Cannula 2.0 02/27/17 23:11 36.8 66 16 122/67 (85) 96 Nasal Cannula 2.0 02/27/17 21:15 84 152/70 (97) 02/27/17 15:30 Room Air Physical Exam General Appearance: WD/WN, no apparent distress Eyes: normal inspection, sclerae normal ENT: normal ENT inspection, pharynx normal Neck: supple, no adenopathy, trachea midline Respiratory/Chest: chest non-tender, lungs clear, normal breath sounds, no respiratory distress Cardiovascular: regular rate, rhythm, no gallop, no murmur Abdomen: normal bowel sounds, soft, no organomegaly, + tenderness Extremities: non-tender, no calf tenderness, normal capillary refill Neurologic/Psychiatric: alert, oriented x 3 Skin: normal color, warm/dry, no rash Lymphatic: no adenopathy Laboratory Results Last 24 Hours Test 02/27/17 17:12 02/27/17 20:31 02/28/17 06:32 02/28/17 07:54 Bedside Glucose 221 mg/dl 191 mg/dl 128 mg/dl White Blood Count 5.88 K/uL Red Blood Count 2.89 M/uL Hemoglobin 10.5 g/dL Hematocrit 30.9 % Mean Corpuscular Volume 106.9 fL Mean Corpuscular Hemoglobin 36.3 pg Mean Corpuscular Hemoglobin Concent 34.0 g/dl RDW Standard Deviation 58.8 fL RDW Coefficient of Variation 15.0 % Platelet Count 392 K/uL Mean Platelet Volume 9.6 fL Sodium Level 139 mmol/L Potassium Level 4.1 mmol/L Chloride Level 105 mmol/L Carbon Dioxide Level 27 mmol/L Anion Gap 7.0 mmol/L Blood Urea Nitrogen 20 mg/dl Creatinine 0.89 mg/dl Est Creatinine Clear Calc Drug Dose 57.1 ml/min Estimated GFR () 71.4 Estimated GFR (Non- 61.6 BUN/Creatinine Ratio 22.0 Random Glucose 107 mg/dl Calcium Level 9.0 mg/dl Test 02/28/17 11:56 Bedside Glucose 136 mg/dl Assessment and Plan 81-year-old female with history of perforation following colonoscopy for stricture, now presents with persistent abscess formation, with blood cultures negative, urine growing Klebsiella. Given report of ESBL producing infection from [facility], I have decided change therapy to IV ertapenem 1 gram daily. Length of therapy will be determined by clinical response and follow-up CT scanning. Will discuss and follow.
[2017-02-28] MEDS ORDERED: OPTIRAY 320 IV PRN (16:45)
[2017-02-28] MEDS: ERTAPENEM IV 1 GM in SODIUM CHLOR 0.9% AD-VAN 50ML 50 ML IV SCH (19:30)
--- NOTE | 2017-02-28 20:36 | DIAGNOSTIC IMAGING REPORT ---
ABD/PELVIS IV AND ORAL CONT CLINICAL HISTORY: 81 years-old Female presenting with history of a right lower quadrant abscess, abdominal pain. TECHNIQUE: Multidetector CT of the abdomen and pelvis was performed after the administration of oral and intravenous contrast. IV contrast: 94 mL of Optiray 320. A dose lowering technique was used consistent with the principles of ALARA (as low as reasonably achievable). COMPARISON: 02/24/2017. CT DOSE (mGy.cm): The estimated cumulative dose is 1061.61 mGy.cm. FINDINGS: Technical Aide topogram: Pacer leads to the right atrium and right ventricular apex noted. Scattered surgical clips in the abdomen. Lung bases: Pacer leads noted. Lung bases clear. Normal heart size. No pericardial or pleural effusion. Liver: Subtle nodular contour of the liver, which is enlarged measuring over 20 cm in maximal sagittal dimension. This is suggestive of cirrhotic morphology. No focal lesion. Patent hepatic vasculature. Biliary: Mild intrahepatic biliary ductal dilatation, likely a reservoir effect in the post cholecystectomy state. No extrahepatic biliary ductal dilatation. Surgically absent gallbladder. Pancreas: Normal. Spleen: Top normal in size measuring 13 cm in maximal sagittal dimension. Adrenal glands: Bilateral adrenal nodules unchanged. Kidneys and ureters: Multiple well-defined hypodensities in the kidneys, likely simple cysts. No hydronephrosis. Gastrointestinal tract: Postoperative changes of subtotal colectomy with ileocolonic anastomosis located in the left lower quadrant. Previously noted collection adjacent to the ileocolonic anastomosis now measures 2.4 cm in diameter (series 2 image 53), previously 3.4 cm. Decreased surrounding inflammatory change. Persistence of the previously noted fistulous tract extending from the collection to the anastomosis (series 2 images 55 and 56). Extensive sigmoid diverticulosis. No bowel obstruction. Duodenal diverticulum adjacent to the major papilla. Peritoneal cavity: No free fluid or intraperitoneal gas. Bladder: Asymmetric right lateral wall thickening. Pelvic organs: Uterus surgically absent. Vasculature: Atherosclerosis of the normal caliber abdominal aorta. Infrarenal IVC filter in place. No evidence of filling defect within the pelvic veins to suggest thrombus. Lymph nodes: No enlarged lymph nodes in the abdomen or pelvis. Abdominal wall: Extensive nodular infiltration of the anterior abdominal wall likely from injections. Collateral vessels also noted. Musculoskeletal: Degenerative changes of the spine. Old rib fractures of several posterior left ribs noted. IMPRESSION: 1. Continued interval decrease in size and associated inflammatory change at the site of the intra-abdominal abscess associated with the ileocolic anastomosis. 2. Additional findings above, unchanged. Electronically signed by: Aly Way M.D. 02/28/2017 8:35 PM Dictated Date/Time: 02/28/2017 8:25 PM
[2017-02-28] MEDS: GABAPENTIN 600 MG TAB PO SCH (21:47)
[2017-02-28 22:55] VITALS: BP 156/73; PULSE 62; TEMP 36.3; O2SAT 99
[2017-03-01] MEDS: ACETAMINOPHEN 325 MG TAB PO PRN (00:03)
[2017-03-01] MEDS: LEVOTHYROXINE 25 MCG TAB PO SCH (05:12)
[2017-03-01 07:01] LABS: MEAN CELL VOLUME 107.4 fL (80-100); MEAN CORPUSCULAR HEMOGLOBIN 36.2 pg (25-34); MEAN CORPUSCULAR HGB CONC 33.8 g/dl (32-36); MEAN PLATELET VOLUME 9.6 fL (7.4-10.4); PLATELET COUNT 429 K/uL (130-400); RED BLOOD COUNT 2.98 M/uL (4.2-5.4); WHITE BLOOD COUNT 5.26 K/uL (4.8-10.8)
[2017-03-01 07:32] VITALS: BP 132/72; PULSE 66; TEMP 36.4; O2SAT 98
[2017-03-01 07:37] LABS: BUN/CREATININE RATIO 24.1 (10-20); CALCIUM 9.2 mg/dl (8.5-10.1); CREATININE 0.82 mg/dl (0.60-1.20); POTASSIUM 4.1 mmol/L (3.5-5.1)
[2017-03-01 08:11] VITALS: O2SAT 98
[2017-03-01] MEDS: CALCIUM 600MG + VIT D 400 IU TAB PO SCH (08:46)
[2017-03-01] MEDS: CITALOPRAM 20 MG TAB PO SCH (08:47)
[2017-03-01] MEDS: ROSUVASTATIN CALCIUM 5 MG TAB PO SCH (08:47)
[2017-03-01] MEDS: ASPIRIN 81 MG ECTAB PO SCH (08:48)
[2017-03-01] MEDS: FoLIC ACID TAB 400 MCG TAB PO SCH (08:49)
[2017-03-01] MEDS: FENOFIBRATE 150 MG PO SCH (08:49)
[2017-03-01] MEDS: FUROSEMIDE 40 MG TAB PO SCH (08:51)
[2017-03-01] MEDS: CEROVITE ADV FORMULA TAB PO SCH ×2 (08:54→21:18)
[2017-03-01] MEDS: NIACIN 500 MG TAB IMMEDIATE RELEASE PO SCH (08:54)
[2017-03-01] MEDS: METOPROLOL TARTRATE 25 MG TAB PO SCH ×2 (08:54→21:18)
[2017-03-01] MEDS: OMEGA-3 (PURIFIED FISH OIL) 1 GM CAP PO SCH ×2 (08:55→21:18)
[2017-03-01] MEDS: PANTOprazole SOD 40 MG TAB PO SCH ×2 (08:56→21:18)
[2017-03-01] MEDS: ROPINIROLE HCL 1 MG TAB PO SCH ×2 (08:56→21:18)
[2017-03-01] MEDS: CARBAMAZEPINE 200 MG TAB PO SCH ×2 (08:57→21:19)
--- NOTE | 2017-03-01 08:57 | Gastroenterology Progress Note ---
Progress Note Date of Service: Mar 01, 2017 Subjective Pt was seen and evaluated. Had CT last night. No acute events overnight. She continue to improves symptomatically. Has intermittent bouts of sharp abdomnal pain, not related to PO intake or BMs. Moving her bowels 4-5 times daily. No black or bloody stools. No fever, chills, chest pain, SOB. CT 02/28/17: Continued interval decrease in size and associated inflammatory change at the site of the intra-abdominal abscess associated with the ileocolic anastomosis.Additional findings above, unchanged. Review of Systems Constitutional: No fever, No chills Respiratory: No cough Cardiac: No chest pain Abdomen: + pain, + diarrhea, No nausea, No vomiting, No constipation, No GI bleeding Medications Current Inpatient Medications Medications (Trade) Dose Ordered Sig/Tone Route Start Time Stop Time Status Last Admin Dose Admin Ondansetron HCl (Zofran Inj) 4 mg Q6H PRN IV 02/24/17 18:15 03/26/17 18:14 Hydromorphone HCl (Dilaudid Inj) 0.5 mg Q3HWA PRN IV 02/24/17 18:15 03/10/17 18:14 Glucose (Glucose 40% Gel) 15-30 GRAMS 15 GRAMS... UD PRN PO 02/24/17 18:45 03/26/17 18:44 Glucose (Glucose Chew Tab) 4-8 Tablets 4 Tabl... UD PRN PO 02/24/17 18:45 03/26/17 18:44 Dextrose (Dextrose 50% 50ML Syringe) 25-50ML OF 50% DW IV FOR... UD PRN IV 02/24/17 18:45 03/26/17 18:44 Glucagon (Glucagon Inj) 1 mg UD PRN SQ 02/24/17 18:45 03/26/17 18:44 Aspirin (Ecotrin Tab) 81 mg QAM PO 02/26/17 09:00 03/28/17 08:59 02/28/17 08:47 81 MG Carbamazepine (Tegretol Tab) 300 mg BID PO 02/25/17 21:00 03/27/17 20:59 02/28/17 21:46 300 MG Enoxaparin Sodium (Lovenox Inj) 60 mg Q12H SQ 02/25/17 10:30 03/27/17 10:29 02/28/17 21:59 60 MG Fish Oil ([place]-3 (Purified Fish Oil) Cap) 1 gm BID PO 02/25/17 21:00 03/27/17 20:59 02/28/17 21:49 1 GM Folic Acid (Folvite Tab) 400 mcg QAM PO 02/26/17 09:00 03/28/17 08:59 02/28/17 08:49 400 MCG Furosemide (Lasix Tab) 40 mg DAILY PO 02/26/17 09:00 03/28/17 08:59 02/28/17 08:52 40 MG Gabapentin (Neurontin Tab) 1,200 mg HS PO 02/25/17 21:00 03/27/17 20:59 02/28/17 21:47 1,200 MG Levothyroxine Sodium (Synthroid Tab) 25 mcg DAILYBB PO 02/26/17 06:00 03/28/17 05:59 03/01/17 05:12 25 MCG Methenamine Hippurate (Urex Tab) 1 gm BID PO 02/25/17 21:00 03/07/17 20:59 02/28/17 21:46 1 GM Metolazone (Zaroxolyn Tab) 2.5 mg DAILY PRN PO 02/25/17 09:15 03/27/17 09:14 Metoprolol Tartrate (Lopressor Tab) 25 mg BID PO 02/25/17 21:00 03/27/17 20:59 02/28/17 21:47 25 MG Niacin (Niacin Tab) 500 mg QAM PO 02/26/17 09:00 03/28/17 08:59 02/28/17 08:54 500 MG Oxycodone/ Acetaminophen (Percocet 5-325mg Tab) 1 tab Q4H PRN PO 02/25/17 09:15 03/11/17 09:14 02/27/17 21:32 1 TAB Ropinirole HCl (Requip Tab) 3 mg HS PO 02/25/17 21:00 03/27/17 20:59 02/28/17 21:48 3 MG Ropinirole HCl (Requip Tab) 1 mg QAM PO 02/26/17 09:00 03/28/17 08:59 02/28/17 08:56 1 MG Ascorbic Acid (Vitamin C Tab) 1,000 mg BID PO 02/25/17 21:00 03/27/17 20:59 02/28/17 21:49 1,000 MG Calcium/Vitamin D (Caltrate Plus Tab) 1 tab DAILY PO 02/26/17 09:00 03/28/17 08:59 02/28/17 08:44 1 TAB Citalopram Hydrobromide (celeXA TAB) 10 mg QAM PO 02/26/17 09:00 03/28/17 08:59 02/28/17 08:46 10 MG Multivitamins/ Minerals (Multivitamin W/ Minerals Tab) 1 tab BID PO 02/25/17 21:00 03/27/17 20:59 02/28/17 21:47 1 TAB Insulin Human Regular (novoLIN-R) SLIDING SCALE IF C... ACHS SC 02/25/17 12:00 03/27/17 11:59 02/28/17 21:57 3 UNITS Rosuvastatin Calcium (Crestor Tab) 5 mg QAM PO 02/26/17 09:00 03/28/17 08:59 02/28/17 08:47 5 MG Hydroxyurea (Hydrea Cap) 500 mg MoThSa@0900 PO 02/25/17 13:30 03/27/17 13:29 02/27/17 08:53 500 MG Hydroxyurea (Hydrea Cap) 500 mg BID PO 02/25/17 13:30 03/27/17 13:29 02/28/17 21:58 500 MG Acetaminophen (Tylenol Tab) 650 mg Q4H PRN PO 02/25/17 14:45 03/27/17 14:44 03/01/17 00:03 650 MG Fenofibrate (Fenofibrate Cap) 150 mg DAILY PO 02/28/17 09:00 03/30/17 08:59 02/28/17 08:48 150 MG Pantoprazole Sodium (Protonix Tab) 40 mg BID PO 02/27/17 21:00 03/29/17 20:59 02/28/17 21:48 40 MG Ertapenem 1 gm/ Sodium Chloride 50 ml @ 120 mls/hr Q24H IV 02/27/17 19:00 03/09/17 18:59 02/28/17 19:30 120 MLS/HR Ioversol (Optiray 320) 100 ml UD PRN IV 02/28/17 16:45 03/04/17 16:44 Objective Vital Signs Date Time Temp Pulse Resp B/P (MAP) Pulse Ox O2 Delivery O2 Flow Rate FiO2 03/01/17 08:11 98 Room Air 03/01/17 07:32 36.4 66 12 132/72 (92) 98 Room Air 02/28/17 23:55 Nasal Cannula 2.0 02/28/17 22:55 36.3 62 16 156/73 (100) 99 Nasal Cannula 2.0 02/28/17 15:24 36.7 70 18 135/74 (94) 99 Room Air 02/28/17 15:20 Room Air Physical Exam General Appearance: no apparent distress Eyes: PERRL ENT: hearing grossly normal Neck: supple Respiratory/Chest: lungs clear Cardiovascular: regular rate, rhythm Abdomen: normal bowel sounds, soft, no organomegaly, + tenderness (mild, generalized) Neurologic/Psych: oriented x 3 Skin: normal color Laboratory Results Last 24 Hours Test 02/28/17 11:56 02/28/17 16:58 02/28/17 20:57 03/01/17 06:43 Bedside Glucose 136 mg/dl 165 mg/dl 105 mg/dl White Blood Count 5.26 K/uL Red Blood Count 2.98 M/uL Hemoglobin 10.8 g/dL Hematocrit 32.0 % Mean Corpuscular Volume 107.4 fL Mean Corpuscular Hemoglobin 36.2 pg Mean Corpuscular Hemoglobin Concent 33.8 g/dl RDW Standard Deviation 59.1 fL RDW Coefficient of Variation 15.1 % Platelet Count 429 K/uL Mean Platelet Volume 9.6 fL Sodium Level 137 mmol/L Potassium Level 4.1 mmol/L Chloride Level 104 mmol/L Carbon Dioxide Level 28 mmol/L Anion Gap 5.0 mmol/L Blood Urea Nitrogen 20 mg/dl Creatinine 0.82 mg/dl Est Creatinine Clear Calc Drug Dose 62.0 ml/min Estimated GFR () 78.9 Estimated GFR (Non- 68.1 BUN/Creatinine Ratio 24.1 Random Glucose 119 mg/dl Calcium Level 9.2 mg/dl Test 03/01/17 07:58 Bedside Glucose 134 mg/dl Assessment and Plan Patient with a history of a contained perforation 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 Low fiber diet as tolerated Continue PO antibiotics per ID Repeat CT scan to follow up abscess [place] [facility] [place] [facility] [place] Consider repeat stool for c.diff Call with questions or concerns. I saw and evaluated the patient. Her CT is promising as her abscess is now only 2.4 cm in diameter. I did have a long discussion with the patient and her daughter today. Given the recurrence, the patient and daughter are interested in definitive management. I would suggest a referral to a tertiary center as the patient from either advanced endoscopy or perhaps an ileostomy.
[2017-03-01] MEDS: METHENAMINE HIPPURATE 1 GM TAB PO SCH ×2 (08:59→21:18)
[2017-03-01] MEDS: ASCORBIC ACID 500 MG TAB PO SCH ×2 (09:00→21:20)
[2017-03-01] MEDS: INSULIN HUMAN REGULAR SC SCH ×4 (09:35→21:21)
[2017-03-01] MEDS: HYDROXYUREA 500 MG CAP PO SCH ×2 (09:36→21:22)
[2017-03-01] MEDS: ENOXAPARIN 60 MG/0.6 ML SYR SQ SCH ×2 (09:42→22:57)
--- NOTE | 2017-03-01 14:24 | Surgery Progress Note ---
Surgery Progress Note Date of Service Mar 01, 2017. Subjective Post OP Day: HD # 5 + feeling well, + ambulating, + bowel movement, + flatus, + pain controlled, + diet (low fiber diet), No chest pain, No SOB, No nausea, No vomiting "feeling better each day" Objective Vital Signs: Date Time Temp Pulse Resp B/P (MAP) Pulse Ox O2 Delivery O2 Flow Rate FiO2 03/01/17 08:11 98 Room Air 03/01/17 08:10 Room Air 03/01/17 07:32 36.4 66 12 132/72 (92) 98 Room Air 02/28/17 23:55 Nasal Cannula 2.0 02/28/17 22:55 36.3 62 16 156/73 (100) 99 Nasal Cannula 2.0 02/28/17 15:24 36.7 70 18 135/74 (94) 99 Room Air 02/28/17 15:20 Room Air General Appearance: WD/WN, no apparent distress Head: normocephalic, atraumatic Neck: trachea midline Respiratory/Chest: no respiratory distress, no accessory muscle use Abdomen: non distended, soft, + tenderness (RLQ and LLQ on palpation) Laboratory Results: Results Past 24 Hours Test 02/28/17 16:58 02/28/17 20:57 03/01/17 06:43 03/01/17 07:58 Range/Units Bedside Glucose 165 105 134 70-90 mg/dl White Blood Count 5.26 4.8-10.8 K/uL Red Blood Count 2.98 4.2-5.4 M/uL Hemoglobin 10.8 12.0-16.0 g/dL Hematocrit 32.0 37-47 % Mean Corpuscular Volume 107.4 80-100 fL Mean Corpuscular Hemoglobin 36.2 25-34 pg Mean Corpuscular Hemoglobin Concent 33.8 32-36 g/dl RDW Standard Deviation 59.1 36.4-46.3 fL RDW Coefficient of Variation 15.1 11.5-14.5 % Platelet Count 429 130-400 K/uL Mean Platelet Volume 9.6 7.4-10.4 fL Sodium Level 137 136-145 mmol/L Potassium Level 4.1 3.5-5.1 mmol/L Chloride Level 104 98-107 mmol/L Carbon Dioxide Level 28 21-32 mmol/L Anion Gap 5.0 3-11 mmol/L Blood Urea Nitrogen 20 7-18 mg/dl Creatinine 0.82 0.60-1.20 mg/dl Est Creatinine Clear Calc Drug Dose 62.0 ml/min Estimated GFR () 78.9 Estimated GFR (Non- 68.1 BUN/Creatinine Ratio 24.1 10-20 Random Glucose 119 70-99 mg/dl Calcium Level 9.2 8.5-10.1 mg/dl Test 03/01/17 11:44 Range/Units Bedside Glucose 151 70-90 mg/dl Microbiology Results 03/01/17 C.difficile Toxin B Gene (PCR) - Final, Complete No C. difficile toxin B gene detected Diagnostic Interpretation: ABD/PELVIS IV AND ORAL CONT CLINICAL HISTORY: 81 years-old Female presenting with history of a right lower quadrant abscess, abdominal pain. TECHNIQUE: Multidetector CT of the abdomen and pelvis was performed after the administration of oral and intravenous contrast. IV contrast: 94 mL of Optiray 320. A dose lowering technique was used consistent with the principles of ALARA (as low as reasonably achievable). COMPARISON: 02/24/2017. CT DOSE (mGy.cm): The estimated cumulative dose is 1061.61 mGy.cm. FINDINGS: Piping Designer topogram: Pacer leads to the right atrium and right ventricular apex noted. Scattered surgical clips in the abdomen. Lung bases: Pacer leads noted. Lung bases clear. Normal heart size. No pericardial or pleural effusion. Liver: Subtle nodular contour of the liver, which is enlarged measuring over 20 cm in maximal sagittal dimension. This is suggestive of cirrhotic morphology. No focal lesion. Patent hepatic vasculature. Biliary: Mild intrahepatic biliary ductal dilatation, likely a reservoir effect in the post cholecystectomy state. No extrahepatic biliary ductal dilatation. Surgically absent gallbladder. Pancreas: Normal. Spleen: Top normal in size measuring 13 cm in maximal sagittal dimension. Adrenal glands: Bilateral adrenal nodules unchanged. Kidneys and ureters: Multiple well-defined hypodensities in the kidneys, likely simple cysts. No hydronephrosis. Gastrointestinal tract: Postoperative changes of subtotal colectomy with ileocolonic anastomosis located in the left lower quadrant. Previously noted collection adjacent to the ileocolonic anastomosis now measures 2.4 cm in diameter (series 2 image 53), previously 3.4 cm. Decreased surrounding inflammatory change. Persistence of the previously noted fistulous tract extending from the collection to the anastomosis (series 2 images 55 and 56). Extensive sigmoid diverticulosis. No bowel obstruction. Duodenal diverticulum adjacent to the major papilla. Peritoneal cavity: No free fluid or intraperitoneal gas. Bladder: Asymmetric right lateral wall thickening. Pelvic organs: Uterus surgically absent. Vasculature: Atherosclerosis of the normal caliber abdominal aorta. Infrarenal IVC filter in place. No evidence of filling defect within the pelvic veins to suggest thrombus. Lymph nodes: No enlarged lymph nodes in the abdomen or pelvis. Abdominal wall: Extensive nodular infiltration of the anterior abdominal wall likely from injections. Collateral vessels also noted. Musculoskeletal: Degenerative changes of the spine. Old rib fractures of several posterior left ribs noted. IMPRESSION: 1. Continued interval decrease in size and associated inflammatory change at the site of the intra-abdominal abscess associated with the ileocolic anastomosis. 2. Additional findings above, unchanged. Assessment & Plan Intra-Abdominal abscess near Ileocolonic anastomosis with Fistulous tract - vitals stable - no leukocytosis - LLQ and RLQ tenderness on palpation, no peritonitis or rigidity - tolerating low fiber diet - no nausea or vomiting - CT scan showing continued interval decrease in size and associated inflammatory change at the site of the intra-abdominal abscess associated with the ileocolic anastomosis. Now measuring 2.4 cm Plan: Continue Antibiotics, may switch to oral antibiotics Continue pain management as needed continue medical management encourage ambulation and incentive spirometry will follow Dr. Lamas has seen and examined patient agrees with above
--- NOTE | 2017-03-01 14:47 | Infectious Disease Progress Nt ---
Progress Note Date of Service Mar 01, 2017. Subjective Pt evaluation today including: conversation w/ patient, physical exam, chart review, lab review, review of studies, conversation w/ corporate health consultant, review of inpatient medication list Patient remains afebrile. Abdominal pain decreasing each day. No new complaints. Tolerating antibiotic without apparent difficulty. All Other Systems: Reviewed and Negative Medications Current Inpatient Medications Medications (Trade) Dose Ordered Sig/Tone Route Start Time Stop Time Status Last Admin Dose Admin Ondansetron HCl (Zofran Inj) 4 mg Q6H PRN IV 02/24/17 18:15 03/26/17 18:14 Hydromorphone HCl (Dilaudid Inj) 0.5 mg Q3HWA PRN IV 02/24/17 18:15 03/10/17 18:14 Glucose (Glucose 40% Gel) 15-30 GRAMS 15 GRAMS... UD PRN PO 02/24/17 18:45 03/26/17 18:44 Glucose (Glucose Chew Tab) 4-8 Tablets 4 Tabl... UD PRN PO 02/24/17 18:45 03/26/17 18:44 Dextrose (Dextrose 50% 50ML Syringe) 25-50ML OF 50% DW IV FOR... UD PRN IV 02/24/17 18:45 03/26/17 18:44 Glucagon (Glucagon Inj) 1 mg UD PRN SQ 02/24/17 18:45 03/26/17 18:44 Aspirin (Ecotrin Tab) 81 mg QAM PO 02/26/17 09:00 03/28/17 08:59 03/01/17 08:48 81 MG Carbamazepine (Tegretol Tab) 300 mg BID PO 02/25/17 21:00 03/27/17 20:59 03/01/17 08:57 300 MG Enoxaparin Sodium (Lovenox Inj) 60 mg Q12H SQ 02/25/17 10:30 03/27/17 10:29 03/01/17 09:42 60 MG Fish Oil ([place]-3 (Purified Fish Oil) Cap) 1 gm BID PO 02/25/17 21:00 03/27/17 20:59 03/01/17 08:55 1 GM Folic Acid (Folvite Tab) 400 mcg QAM PO 02/26/17 09:00 03/28/17 08:59 03/01/17 08:49 400 MCG Furosemide (Lasix Tab) 40 mg DAILY PO 02/26/17 09:00 03/28/17 08:59 03/01/17 08:51 40 MG Gabapentin (Neurontin Tab) 1,200 mg HS PO 02/25/17 21:00 03/27/17 20:59 02/28/17 21:47 1,200 MG Levothyroxine Sodium (Synthroid Tab) 25 mcg DAILYBB PO 02/26/17 06:00 03/28/17 05:59 03/01/17 05:12 25 MCG Methenamine Hippurate (Urex Tab) 1 gm BID PO 02/25/17 21:00 03/07/17 20:59 03/01/17 08:59 1 GM Metolazone (Zaroxolyn Tab) 2.5 mg DAILY PRN PO 02/25/17 09:15 03/27/17 09:14 Metoprolol Tartrate (Lopressor Tab) 25 mg BID PO 02/25/17 21:00 03/27/17 20:59 03/01/17 08:54 25 MG Niacin (Niacin Tab) 500 mg QAM PO 02/26/17 09:00 03/28/17 08:59 03/01/17 08:54 500 MG Oxycodone/ Acetaminophen (Percocet 5-325mg Tab) 1 tab Q4H PRN PO 02/25/17 09:15 03/11/17 09:14 02/27/17 21:32 1 TAB Ropinirole HCl (Requip Tab) 3 mg HS PO 02/25/17 21:00 03/27/17 20:59 02/28/17 21:48 3 MG Ropinirole HCl (Requip Tab) 1 mg QAM PO 02/26/17 09:00 03/28/17 08:59 03/01/17 08:56 1 MG Ascorbic Acid (Vitamin C Tab) 1,000 mg BID PO 02/25/17 21:00 03/27/17 20:59 03/01/17 09:00 1,000 MG Calcium/Vitamin D (Caltrate Plus Tab) 1 tab DAILY PO 02/26/17 09:00 03/28/17 08:59 03/01/17 08:46 1 TAB Citalopram Hydrobromide (celeXA TAB) 10 mg QAM PO 02/26/17 09:00 03/28/17 08:59 03/01/17 08:47 10 MG Multivitamins/ Minerals (Multivitamin W/ Minerals Tab) 1 tab BID PO 02/25/17 21:00 03/27/17 20:59 03/01/17 08:54 1 TAB Insulin Human Regular (novoLIN-R) SLIDING SCALE IF C... ACHS SC 02/25/17 12:00 03/27/17 11:59 03/01/17 13:18 3 UNITS Rosuvastatin Calcium (Crestor Tab) 5 mg QAM PO 02/26/17 09:00 03/28/17 08:59 03/01/17 08:47 5 MG Hydroxyurea (Hydrea Cap) 500 mg MoThSa@0900 PO 02/25/17 13:30 03/27/17 13:29 02/27/17 08:53 500 MG Hydroxyurea (Hydrea Cap) 500 mg BID PO 02/25/17 13:30 03/27/17 13:29 03/01/17 09:36 500 MG Acetaminophen (Tylenol Tab) 650 mg Q4H PRN PO 02/25/17 14:45 03/27/17 14:44 03/01/17 00:03 650 MG Fenofibrate (Fenofibrate Cap) 150 mg DAILY PO 02/28/17 09:00 03/30/17 08:59 03/01/17 08:49 150 MG Pantoprazole Sodium (Protonix Tab) 40 mg BID PO 02/27/17 21:00 03/29/17 20:59 03/01/17 08:56 40 MG Ertapenem 1 gm/ Sodium Chloride 50 ml @ 120 mls/hr Q24H IV 02/27/17 19:00 03/09/17 18:59 02/28/17 19:30 120 MLS/HR Ioversol (Optiray 320) 100 ml UD PRN IV 02/28/17 16:45 03/04/17 16:44 Objective Vital Signs Date Time Temp Pulse Resp B/P (MAP) Pulse Ox O2 Delivery O2 Flow Rate FiO2 03/01/17 08:11 98 Room Air 03/01/17 08:10 Room Air 03/01/17 07:32 36.4 66 12 132/72 (92) 98 Room Air 02/28/17 23:55 Nasal Cannula 2.0 02/28/17 22:55 36.3 62 16 156/73 (100) 99 Nasal Cannula 2.0 02/28/17 15:24 36.7 70 18 135/74 (94) 99 Room Air 02/28/17 15:20 Room Air Physical Exam General Appearance: WD/WN, no apparent distress Eyes: normal inspection, sclerae normal ENT: normal ENT inspection, pharynx normal Neck: supple, no adenopathy, trachea midline Respiratory/Chest: lungs clear, normal breath sounds, no respiratory distress Cardiovascular: regular rate, rhythm, no gallop, no murmur Abdomen: normal bowel sounds, non tender, soft, no organomegaly Extremities: non-tender, no calf tenderness Neurologic/Psychiatric: alert, oriented x 3 Skin: normal color, warm/dry, no rash Lymphatic: no adenopathy Laboratory Results Last 24 Hours Test 02/28/17 16:58 02/28/17 20:57 03/01/17 06:43 03/01/17 07:58 Bedside Glucose 165 mg/dl 105 mg/dl 134 mg/dl White Blood Count 5.26 K/uL Red Blood Count 2.98 M/uL Hemoglobin 10.8 g/dL Hematocrit 32.0 % Mean Corpuscular Volume 107.4 fL Mean Corpuscular Hemoglobin 36.2 pg Mean Corpuscular Hemoglobin Concent 33.8 g/dl RDW Standard Deviation 59.1 fL RDW Coefficient of Variation 15.1 % Platelet Count 429 K/uL Mean Platelet Volume 9.6 fL Sodium Level 137 mmol/L Potassium Level 4.1 mmol/L Chloride Level 104 mmol/L Carbon Dioxide Level 28 mmol/L Anion Gap 5.0 mmol/L Blood Urea Nitrogen 20 mg/dl Creatinine 0.82 mg/dl Est Creatinine Clear Calc Drug Dose 62.0 ml/min Estimated GFR () 78.9 Estimated GFR (Non- 68.1 BUN/Creatinine Ratio 24.1 Random Glucose 119 mg/dl Calcium Level 9.2 mg/dl Test 03/01/17 11:44 Bedside Glucose 151 mg/dl Assessment and Plan 81-year-old female with history of perforation following colonoscopy for stricture, now presents with persistent abscess formation, with blood cultures negative, urine growing Klebsiella. Given report of ESBL producing infection from [facility], I have decided change therapy to IV ertapenem 1 gram daily. Length of therapy will be determined by clinical response and follow-up CT scanning. Will follow.
[2017-03-01 15:51] VITALS: BP 149/72; PULSE 60; TEMP 36.8; O2SAT 97
[2017-03-01 16:00] VITALS: O2SAT 97
--- NOTE | 2017-03-01 16:46 | Progress Note ---
Subjective Date of Service: Mar 01, 2017. Subjective Pt evaluation today including: conversation w/ patient, physical exam, lab review, review of studies, review of inpatient medication list Saw/examined the patient in room 384 She's doing well today; no problems/issues to note Pain subsided, no fevers/chills Problem List Medical Problems: (1) Acute urinary retention Status: Acute (2) Bladder mass Status: Acute (3) Current use of insurance rater anticoagulation Status: Acute (4) Dehydration Status: Acute (5) Flu-like symptoms Status: Acute (6) Hematuria Status: Acute (7) Hematuria Status: Acute (8) History of DVT of lower extremity Status: Acute (9) Intra-abdominal abscess Status: Acute (10) Intra-abdominal abscess Status: Acute (11) Intractable nausea and vomiting Status: Acute (12) Left lower quadrant pain Status: Acute (13) Nausea, vomiting, and diarrhea Status: Acute (14) UTI (urinary tract infection) Status: Acute (15) Weak Status: Acute Review of Systems Constitutional: No fever, No chills Respiratory: No shortness of breath Cardiac: No chest pain Abdomen: + diarrhea, No pain, No nausea, No vomiting, No constipation Medications Current Inpatient Medications Medications (Trade) Dose Ordered Sig/Tone Route Start Time Stop Time Status Last Admin Dose Admin Ondansetron HCl (Zofran Inj) 4 mg Q6H PRN IV 02/24/17 18:15 03/26/17 18:14 Hydromorphone HCl (Dilaudid Inj) 0.5 mg Q3HWA PRN IV 02/24/17 18:15 03/10/17 18:14 Glucose (Glucose 40% Gel) 15-30 GRAMS 15 GRAMS... UD PRN PO 02/24/17 18:45 03/26/17 18:44 Glucose (Glucose Chew Tab) 4-8 Tablets 4 Tabl... UD PRN PO 02/24/17 18:45 03/26/17 18:44 Dextrose (Dextrose 50% 50ML Syringe) 25-50ML OF 50% DW IV FOR... UD PRN IV 02/24/17 18:45 03/26/17 18:44 Glucagon (Glucagon Inj) 1 mg UD PRN SQ 02/24/17 18:45 03/26/17 18:44 Aspirin (Ecotrin Tab) 81 mg QAM PO 02/26/17 09:00 03/28/17 08:59 03/01/17 08:48 81 MG Carbamazepine (Tegretol Tab) 300 mg BID PO 02/25/17 21:00 03/27/17 20:59 03/01/17 08:57 300 MG Enoxaparin Sodium (Lovenox Inj) 60 mg Q12H SQ 02/25/17 10:30 03/27/17 10:29 03/01/17 09:42 60 MG Fish Oil ([place]-3 (Purified Fish Oil) Cap) 1 gm BID PO 02/25/17 21:00 03/27/17 20:59 03/01/17 08:55 1 GM Folic Acid (Folvite Tab) 400 mcg QAM PO 02/26/17 09:00 03/28/17 08:59 03/01/17 08:49 400 MCG Furosemide (Lasix Tab) 40 mg DAILY PO 02/26/17 09:00 03/28/17 08:59 03/01/17 08:51 40 MG Gabapentin (Neurontin Tab) 1,200 mg HS PO 02/25/17 21:00 03/27/17 20:59 02/28/17 21:47 1,200 MG Levothyroxine Sodium (Synthroid Tab) 25 mcg DAILYBB PO 02/26/17 06:00 03/28/17 05:59 03/01/17 05:12 25 MCG Methenamine Hippurate (Urex Tab) 1 gm BID PO 02/25/17 21:00 03/07/17 20:59 03/01/17 08:59 1 GM Metolazone (Zaroxolyn Tab) 2.5 mg DAILY PRN PO 02/25/17 09:15 03/27/17 09:14 Metoprolol Tartrate (Lopressor Tab) 25 mg BID PO 02/25/17 21:00 03/27/17 20:59 03/01/17 08:54 25 MG Niacin (Niacin Tab) 500 mg QAM PO 02/26/17 09:00 03/28/17 08:59 03/01/17 08:54 500 MG Oxycodone/ Acetaminophen (Percocet 5-325mg Tab) 1 tab Q4H PRN PO 02/25/17 09:15 03/11/17 09:14 02/27/17 21:32 1 TAB Ropinirole HCl (Requip Tab) 3 mg HS PO 02/25/17 21:00 03/27/17 20:59 02/28/17 21:48 3 MG Ropinirole HCl (Requip Tab) 1 mg QAM PO 02/26/17 09:00 03/28/17 08:59 03/01/17 08:56 1 MG Ascorbic Acid (Vitamin C Tab) 1,000 mg BID PO 02/25/17 21:00 03/27/17 20:59 03/01/17 09:00 1,000 MG Calcium/Vitamin D (Caltrate Plus Tab) 1 tab DAILY PO 02/26/17 09:00 03/28/17 08:59 03/01/17 08:46 1 TAB Citalopram Hydrobromide (celeXA TAB) 10 mg QAM PO 02/26/17 09:00 03/28/17 08:59 03/01/17 08:47 10 MG Multivitamins/ Minerals (Multivitamin W/ Minerals Tab) 1 tab BID PO 02/25/17 21:00 03/27/17 20:59 03/01/17 08:54 1 TAB Insulin Human Regular (novoLIN-R) SLIDING SCALE IF C... ACHS SC 02/25/17 12:00 03/27/17 11:59 03/01/17 13:18 3 UNITS Rosuvastatin Calcium (Crestor Tab) 5 mg QAM PO 02/26/17 09:00 03/28/17 08:59 03/01/17 08:47 5 MG Hydroxyurea (Hydrea Cap) 500 mg MoThSa@0900 PO 02/25/17 13:30 03/27/17 13:29 02/27/17 08:53 500 MG Hydroxyurea (Hydrea Cap) 500 mg BID PO 02/25/17 13:30 03/27/17 13:29 03/01/17 09:36 500 MG Acetaminophen (Tylenol Tab) 650 mg Q4H PRN PO 02/25/17 14:45 03/27/17 14:44 03/01/17 00:03 650 MG Fenofibrate (Fenofibrate Cap) 150 mg DAILY PO 02/28/17 09:00 03/30/17 08:59 03/01/17 08:49 150 MG Pantoprazole Sodium (Protonix Tab) 40 mg BID PO 02/27/17 21:00 03/29/17 20:59 03/01/17 08:56 40 MG Ertapenem 1 gm/ Sodium Chloride 50 ml @ 120 mls/hr Q24H IV 02/27/17 19:00 03/09/17 18:59 02/28/17 19:30 120 MLS/HR Ioversol (Optiray 320) 100 ml UD PRN IV 02/28/17 16:45 03/04/17 16:44 Objective Vital Signs Date Time Temp Pulse Resp B/P (MAP) Pulse Ox O2 Delivery O2 Flow Rate FiO2 03/01/17 15:51 36.8 60 18 149/72 (97) 97 Room Air 03/01/17 08:11 98 Room Air 03/01/17 08:10 Room Air 03/01/17 07:32 36.4 66 12 132/72 (92) 98 Room Air 02/28/17 23:55 Nasal Cannula 2.0 02/28/17 22:55 36.3 62 16 156/73 (100) 99 Nasal Cannula 2.0 Physical Exam General Appearance: no apparent distress Respiratory/Chest: lungs clear, normal breath sounds, no respiratory distress, no accessory muscle use Cardiovascular: regular rate, rhythm, no edema, no murmur Abdomen: normal bowel sounds, non tender, soft, + distended Extremities: normal inspection, no pedal edema Laboratory Results Last 24 Hours Test 02/28/17 16:58 02/28/17 20:57 03/01/17 06:43 03/01/17 07:58 Bedside Glucose 165 mg/dl 105 mg/dl 134 mg/dl White Blood Count 5.26 K/uL Red Blood Count 2.98 M/uL Hemoglobin 10.8 g/dL Hematocrit 32.0 % Mean Corpuscular Volume 107.4 fL Mean Corpuscular Hemoglobin 36.2 pg Mean Corpuscular Hemoglobin Concent 33.8 g/dl RDW Standard Deviation 59.1 fL RDW Coefficient of Variation 15.1 % Platelet Count 429 K/uL Mean Platelet Volume 9.6 fL Sodium Level 137 mmol/L Potassium Level 4.1 mmol/L Chloride Level 104 mmol/L Carbon Dioxide Level 28 mmol/L Anion Gap 5.0 mmol/L Blood Urea Nitrogen 20 mg/dl Creatinine 0.82 mg/dl Est Creatinine Clear Calc Drug Dose 62.0 ml/min Estimated GFR () 78.9 Estimated GFR (Non- 68.1 BUN/Creatinine Ratio 24.1 Random Glucose 119 mg/dl Calcium Level 9.2 mg/dl Test 03/01/17 11:44 Bedside Glucose 151 mg/dl Assessment and Plan This is a 81 year old female with a PMH of DM2, HTN, hypothyroidism, hx. of DVT and PE on Lovenox, HLD, restless leg syndrome presents with abdominal pain and GI bleed Intraabdominal Abscess 03/01 appreciate GI, surgery and ID input plan to continue IV Invanz for now as per GI plan for transfer to tertiary center for ileostomy? 02/28 IV Invanz started by ID continue low fiber diet repeat CT should be done in a few days to determine length of treatment 02/27 worsening Abdominal/Pelvis CT = increasing size of abscess; 3.5cm continue IV Zosyn for now appreciate general surgery and ID input switch to PO abx. when doing better continue low fiber diet Hx. of DVT/PE; Factor V Leiden Mutation continue Lovenox monitor H/H DM2 continue sliding scale insulin Hematuria outpatient follow-up monitor H/H Klebsiella UTI continue Invanz Hx.of Seizure Disorder continue home medications TIA continue aspirin, statin Head CT no acute findings Hypothyroidism TSH wnl continue Synthroid Restless Leg Syndrome Requip resumed Hx. of Lung Nodule will check a CXR PA, lateral, oblique DNR/DNI
[2017-03-01] MEDS: ERTAPENEM IV 1 GM in SODIUM CHLOR 0.9% AD-VAN 50ML 50 ML IV SCH (18:33)
[2017-03-01 21:13] VITALS: BP 160/72
[2017-03-01] MEDS: GABAPENTIN 600 MG TAB PO SCH (21:18)
[2017-03-01 23:07] VITALS: BP 152/77; PULSE 67; TEMP 36.3; O2SAT 98
[2017-03-02] MEDS: LEVOTHYROXINE 25 MCG TAB PO SCH (05:36)
[2017-03-02 07:13] LABS: MEAN CELL VOLUME 107.5 fL (80-100); MEAN CORPUSCULAR HEMOGLOBIN 34.9 pg (25-34); MEAN CORPUSCULAR HGB CONC 32.4 g/dl (32-36); MEAN PLATELET VOLUME 9.5 fL (7.4-10.4); PLATELET COUNT 452 K/uL (130-400); RED BLOOD COUNT 3.07 M/uL (4.2-5.4); WHITE BLOOD COUNT 5.42 K/uL (4.8-10.8)
[2017-03-02 07:38] LABS: CALCIUM 9.7 mg/dl (8.5-10.1); POTASSIUM 4.4 mmol/L (3.5-5.1)
[2017-03-02 07:58] VITALS: BP 144/66; PULSE 70; TEMP 36.9; O2SAT 96
[2017-03-02] MEDS: INSULIN HUMAN REGULAR SC SCH ×3 (08:00→18:02)
[2017-03-02 08:01] VITALS: O2SAT 96
--- NOTE | 2017-03-02 08:46 | Surgery Progress Note ---
Surgery Progress Note Date of Service Mar 02, 2017. Subjective Post OP Day: HD # 6 + feeling well (this morning), + bowel movement, + flatus, + pain controlled, + diet, No chest pain, No SOB, No nausea, No vomiting feels good in mornings and increased soreness throughout the afternoon and evening tolerated last nights dinner with no nausea or vomiting no over night events Apparently Dr. Laird contacted Daughter last evening in regards to possible transfer to tertiary center for definitive treatment? patient unsure of plans, believes they are trying to figure out and will let her know today?? Objective Vital Signs: Date Time Temp Pulse Resp B/P (MAP) Pulse Ox O2 Delivery O2 Flow Rate FiO2 03/02/17 08:01 96 Room Air 03/02/17 07:58 36.9 70 14 144/66 (92) 96 Room Air 03/02/17 07:42 Room Air 03/01/17 23:07 36.3 67 16 152/77 (102) 98 Nasal Cannula 2.0 03/01/17 21:13 160/72 (101) 03/01/17 20:18 Room Air 2.0 Nasal Cannula 03/01/17 16:00 97 Room Air 03/01/17 15:51 36.8 60 18 149/72 (97) 97 Room Air General Appearance: WD/WN, no apparent distress Head: normocephalic, atraumatic Neck: trachea midline Respiratory/Chest: lungs clear, normal breath sounds, no respiratory distress, no accessory muscle use Cardiovascular: regular rate, rhythm, no murmur Abdomen: non tender (on examination today, no guarding, rebound, rigidity, or peritonitis), non distended, soft Laboratory Results: Results Past 24 Hours Test 03/01/17 11:44 03/01/17 18:16 03/01/17 20:55 03/02/17 06:56 Range/Units Bedside Glucose 151 199 175 70-90 mg/dl White Blood Count 5.42 4.8-10.8 K/uL Red Blood Count 3.07 4.2-5.4 M/uL Hemoglobin 10.7 12.0-16.0 g/dL Hematocrit 33.0 37-47 % Mean Corpuscular Volume 107.5 80-100 fL Mean Corpuscular Hemoglobin 34.9 25-34 pg Mean Corpuscular Hemoglobin Concent 32.4 32-36 g/dl RDW Standard Deviation 59.0 36.4-46.3 fL RDW Coefficient of Variation 15.1 11.5-14.5 % Platelet Count 452 130-400 K/uL Mean Platelet Volume 9.5 7.4-10.4 fL Sodium Level 138 136-145 mmol/L Potassium Level 4.4 3.5-5.1 mmol/L Chloride Level 104 98-107 mmol/L Carbon Dioxide Level 27 21-32 mmol/L Anion Gap 7.0 3-11 mmol/L Blood Urea Nitrogen 25 7-18 mg/dl Creatinine 1.00 0.60-1.20 mg/dl Est Creatinine Clear Calc Drug Dose 50.8 ml/min Estimated GFR () 62.1 Estimated GFR (Non- 53.5 BUN/Creatinine Ratio 25.0 10-20 Random Glucose 112 70-99 mg/dl Calcium Level 9.7 8.5-10.1 mg/dl Test 03/02/17 08:02 Range/Units Bedside Glucose 124 70-90 mg/dl Microbiology Results 03/01/17 C.difficile Toxin B Gene (PCR) - Final, Complete No C. difficile toxin B gene detected Assessment & Plan Intra-abdominal abscess - vitals stable - no leukocytosis, throughout hospital course - CT scan on 02/28/2017 showing decrease in size of intra-abdominal abscess and decreased inflammation now measuring 2.4 cm - Currently on IV Invanz Plan: Continue current antibiotics continue low fiber diet continue current medical management will await plans from GI Re-evaluated with Dr. Casiano at 3:00 pm Pt being transferred to [place] for further management/treatment Dr. Casiano has seen patient, agrees with above I interviewed and examined this patient and I agree with the above note. Less tender today. CT noted. To be transferred to [place].
[2017-03-02] MEDS: HYDROXYUREA 500 MG CAP PO SCH ×2 (09:00)
[2017-03-02] MEDS: ROSUVASTATIN CALCIUM 5 MG TAB PO SCH (09:00)
[2017-03-02] MEDS: CARBAMAZEPINE 200 MG TAB PO SCH (09:00)
[2017-03-02] MEDS: METHENAMINE HIPPURATE 1 GM TAB PO SCH (09:00)
[2017-03-02] MEDS: ASCORBIC ACID 500 MG TAB PO SCH (09:00)
[2017-03-02] MEDS: ROPINIROLE HCL 1 MG TAB PO SCH (09:00)
[2017-03-02] MEDS: CITALOPRAM 20 MG TAB PO SCH (09:00)
[2017-03-02] MEDS: FUROSEMIDE 40 MG TAB PO SCH (09:00)
[2017-03-02] MEDS: CALCIUM 600MG + VIT D 400 IU TAB PO SCH (09:00)
[2017-03-02] MEDS: NIACIN 500 MG TAB IMMEDIATE RELEASE PO SCH (09:00)
[2017-03-02] MEDS: FoLIC ACID TAB 400 MCG TAB PO SCH (09:00)
[2017-03-02] MEDS: CEROVITE ADV FORMULA TAB PO SCH (09:00)
[2017-03-02] MEDS: PANTOprazole SOD 40 MG TAB PO SCH (09:00)
[2017-03-02] MEDS: ASPIRIN 81 MG ECTAB PO SCH (09:00)
[2017-03-02] MEDS: METOPROLOL TARTRATE 25 MG TAB PO SCH (09:00)
[2017-03-02] MEDS: OMEGA-3 (PURIFIED FISH OIL) 1 GM CAP PO SCH (09:00)
[2017-03-02] MEDS: FENOFIBRATE 150 MG PO SCH (09:00)
--- NOTE | 2017-03-02 09:55 | Progress Note ---
Internal Med Progress Note Date of Service: Mar 02, 2017. Provider Documentation: SUBJECTIVE: sitting up on chair , feels better has minimum pain on left lower quadrant no fever or chills tolerating diet well OBJECTIVE: Vital Signs-as noted below Exam: General-no sign of distress, comfortable Eyes-sclera non icteric ENT-NAD Neck-no JVD Lungs-CTA , no rales or wheeze Heart-regular S1/S2; _ 1-2 bilat lower ext edema Abdomen-soft, mild tenderness noted on left lower quadrant on palpation , bowel sound active Extremities-no rash or deformity Neuro-AAO x3, no focal deficit Lab data as noted below. ASSESSMENT & PLAN: Intraabdominal Abscess appreciate GI, surgery and ID input continue IV Invanz for now repeat CT abdomen /Pelvis shows improvement of size of abscess D/w GI plan for transfer to tertiary center for definitive tx ileostomy spoke with Pt , in agreement with [facility] transfer wants it to be done later part of the day as Daughter arrives to Hospital Hx. of DVT/PE; Factor V Leiden Mutation continue Lovenox DM2 continue sliding scale insulin Hematuria-resolved appreciate urology eval CT abdomen finding of irregular bladder has been stable , prior biopsy was benign outpatient follow-up monitor H/H Klebsiella UTI continue Invanz Hx.of Seizure Disorder continue home medications TIA continue aspirin, statin Head CT no acute findings Hypothyroidism TSH wnl continue Synthroid Restless Leg Syndrome Requip resumed Hx. of Lung Nodule CXR PA, lateral, oblique-in conclusive recommends CT chest can be done as out patient DNR/DNI DISPOSITION : Transfer to [facility] later today Vital Signs: Date Time Temp Pulse Resp B/P (MAP) Pulse Ox O2 Delivery O2 Flow Rate FiO2 03/02/17 08:01 96 Room Air 03/02/17 07:58 36.9 70 14 144/66 (92) 96 Room Air 03/02/17 07:42 Room Air 03/01/17 23:07 36.3 67 16 152/77 (102) 98 Nasal Cannula 2.0 03/01/17 21:13 160/72 (101) 03/01/17 20:18 Room Air 2.0 Nasal Cannula 03/01/17 16:00 97 Room Air 03/01/17 15:51 36.8 60 18 149/72 (97) 97 Room Air Lab Results: Results Past 24 Hours Test 03/01/17 11:44 03/01/17 18:16 03/01/17 20:55 03/02/17 06:56 Range/Units Bedside Glucose 151 199 175 70-90 mg/dl White Blood Count 5.42 4.8-10.8 K/uL Red Blood Count 3.07 4.2-5.4 M/uL Hemoglobin 10.7 12.0-16.0 g/dL Hematocrit 33.0 37-47 % Mean Corpuscular Volume 107.5 80-100 fL Mean Corpuscular Hemoglobin 34.9 25-34 pg Mean Corpuscular Hemoglobin Concent 32.4 32-36 g/dl RDW Standard Deviation 59.0 36.4-46.3 fL RDW Coefficient of Variation 15.1 11.5-14.5 % Platelet Count 452 130-400 K/uL Mean Platelet Volume 9.5 7.4-10.4 fL Sodium Level 138 136-145 mmol/L Potassium Level 4.4 3.5-5.1 mmol/L Chloride Level 104 98-107 mmol/L Carbon Dioxide Level 27 21-32 mmol/L Anion Gap 7.0 3-11 mmol/L Blood Urea Nitrogen 25 7-18 mg/dl Creatinine 1.00 0.60-1.20 mg/dl Est Creatinine Clear Calc Drug Dose 50.8 ml/min Estimated GFR () 62.1 Estimated GFR (Non- 53.5 BUN/Creatinine Ratio 25.0 10-20 Random Glucose 112 70-99 mg/dl Calcium Level 9.7 8.5-10.1 mg/dl Test 03/02/17 08:02 Range/Units Bedside Glucose 124 70-90 mg/dl Microbiology Results 03/01/17 C.difficile Toxin B Gene (PCR) - Final, Complete No C. difficile toxin B gene detected
[2017-03-02] MEDS: ENOXAPARIN 60 MG/0.6 ML SYR SQ SCH (10:50)
[2017-03-02 15:41] VITALS: BP 150/64; PULSE 72; TEMP 36.4; O2SAT 98
--- NOTE | 2017-03-02 16:45 | Discharge Instructions ---
Discharge Instructions Date of Service Mar 02, 2017. Admission Reason for Admission: Abdominal Abscess;Abdominal Pain Discharge Discharge Diagnosis / Problem: RECURRENT ABDOMINAL ABSCESS Discharge Goals Goal(s): Improve disease control, Diagnostic testing, Therapeutic intervention Activity Recommendations Activity Limitations: resume your previous activity . Instructions / Follow-Up Instructions / Follow-Up TRANSFER TO [facility] FOR FURTHER MANAGEMENT OF ILEOCOLIC FISTULA , RECURRENT ABDOMINAL ABSCES Current Hospital Diet Patient's current hospital diet: Low Fiber Diet, Diabetes Type 2 Diet Discharge Diet Recommended Diet: Diabetes Type 2 Diet, Low Fiber Diet Pending Studies Studies pending at discharge: no Laboratory Results Hemoglobin A1c Test 02/25/17 07:04 Range/Units Estimated Average Glucose 103 mg/dl Hemoglobin A1c 5.2 4.5-5.6 % Lipid Panel Test 12/24/16 05:25 Range/Units Triglycerides Level 295 H 0-150 mg/dl Medical Emergencies . Who to Call and When: Medical Emergencies: If at any time you feel your situation is an emergency, please call 911 immediately. . Non-Emergent Contact Non-Emergency issues call your: Primary Care Provider . . "Provider Documentation" section prepared by Corinne Draper. . VTE Core Measure Inpt VTE Proph given/why not?: [place], TIA's
--- NOTE | 2017-03-02 16:48 | Discharge Summary ---
Discharge Summary Date of Service Mar 02, 2017. Discharge Summary Admission Date: Feb 24, 2017 at 18:09 Discharge Date: Mar 02, 2017 Discharge Disposition: Acute care facility ([facility] ) Principal Diagnosis: RECURRENT ABDOMINAL ABSCESS Procedures: CT ABDOMEN /PELVIS : 02/28/17 IMPRESSION: 1. Continued interval decrease in size and associated inflammatory change at the site of the intra-abdominal abscess associated with the ileocolic anastomosis. 2. Additional findings above, unchanged. CT ABDOMEN/PELVIS 02/24/17 : IMPRESSION: 1. Minimal increase in size of a 3.5 cm abscess adjacent to the ileocolonic anastomosis. Fistulous tract extending from the collection to the anastomosis is again noted. 2. No bowel obstruction. 3. Numerous additional incidental findings within the abdomen and pelvis which are similar to prior exams. 4. Persistent asymmetric right lateral bladder wall thickening. This is nonspecific and a urothelial lesion cannot be excluded. Correlation with cystoscopy if not recently performed, is recommended. Consultations: GASTROENTEROLOGY SURGERY ID Medication Reconciliation Continued Medications: Ascorbic Acid (Vitamin C) 1,000 Mg Tab 1000 MG PO BID Calcium Carbonate-Cholecalcife (Caltrate 600+D) 1 Tab Tab 1 TAB PO DAILY Carbamazepine (Tegretol) 200 Mg Tab 300 MG PO BID, TAB Citalopram Hydrobromide (Citalopram Hydrobromide) 10 Mg Tab 10 MG PO QAM, TAB 3 Refills Fenofibrate (Fenofibrate) 150 Mg Cap 150 MG PO DAILY Fish Oil ([place]-3) 1 Ea Cap 1 CAP PO BID, CAP Folic Acid (Folvite) 1 Mg Tab 400 MCG PO QAM, TAB Furosemide (Lasix) 40 Mg Tab 40 MG PO DAILY, TAB Gabapentin (Neurontin) 300 Mg Cap 1200 MG PO HS, CAP Hydroxyurea (Hydrea Cap) 500 Mg Cap 500 MG PO BID TAKE 500 MG BID PO Hydroxyurea (Hydroxyurea) 500 Mg Cap 500 MG PO UD TAKE 500 MG PO DAILY IN THE MORNING MONDAY, MONDAY, AND MONDAY. Levothyroxine Sodium (Levothyroxine Sodium) 25 Mcg Tab 25 MCG PO QAM, TAB 3 Refills Methenamine Hippurate (Methenamine Hippurate) 1 Gm Tab 1 GM PO BID Metolazone (Zaroxolyn) 2.5 Mg Tab 2.5 MG PO DAILY PRN for fluid retention, TAB Metoprolol Tartrate (Lopressor) (Lopressor) 25 Mg Tab 25 MG PO BID, TAB Multiple Vitamins W/ Minerals (Preservision Areds 2) 1 Cap Cap 1 CAP PO BID Niacin (Niacin) 500 Mg Tab 500 MG PO QAM, TAB Oxycodone/Acetaminophen 5MG/325MG (Percocet 5MG/325MG) Tab 1 TABLET PO Q4H PRN for Pain, #20 TAB PAIN Pantoprazole (Protonix) 40 Mg Tab 40 MG PO QAM, #30 TAB Ropinirole (Requip) 1 Mg Tab 3 MG PO HS, TAB Ropinirole HCl (Ropinirole HCl) 1 Mg Tab 1 MG PO QAM Rosuvastatin Calcium (Crestor) 5 Mg Tab 5 MG PO QAM, TAB Sitagliptin Phosphate (Januvia) 100 Mg Tab 100 MG PO QAM, TAB Discontinued Medications: Aspirin (Aspirin Ec) 81 Mg Tab 81 MG PO QAM Enoxaparin (Enoxaparin Sodium) 60 Mg/0.6 Ml Inj 60 MG SQ Q12H for 30 Days continue per home medication regimen Admission Information HPI (per Admitting provider): this is a 81 yo F with complex past medical hx of Factor 5 leiden , hx of DVT/ PE s/p IVC filter placement , on chronic anticoagulation with Lovenox, HTN , Type 2 DM , Hypothyroidism , TIA , Seizure disorder , hx of Hemicolectomy due to GI bleed pt was in ER of [facility] on 01/15/17 for left lower quadrant abdominal pain CT abdomen shows gas and fluid collection ( abscess ) adjacent to ileocolic anastomosis measuring 3.4 cm pt was transferred to [facility] , underwent IR guided drainage of 5 ml fluid Surgery team consulted , no surgical intervention done initially treated with Cipro/Flagyl Culture specimen form drainage -E coli -ESBL -resistant to Cipro /Gentamicin / Levaquin sensitive to Ampicillin , Cefepime , Zosyn later transitioned to PO Augmentin for 10 days on Discharge at home pt did well Had Follow up CT abdomen /pelvis done on 01/30/17 Showed : Stable overall size of the ileocolic area predominately fluid containing abscess/collection, measuring 3.4 x 2.4 x 3.3 cm. There is interval decrease in the gas component. Stable appearance of the fistulous tract to the anastomosis. for the past 2-3 days pt developed left sided abdominal pain , associated with diarrhea . blood in stool no nausea , no fever or chills appetite in poor , associated with generalized weakness in ER CT abdomen /pelvis shows persisted left sided abscess , Physical Exam (per Admitting): General Appearance: no apparent distress Head: normocephalic, atraumatic Eyes: normal inspection, sclerae normal Neck: supple, no adenopathy, no JVD Respiratory/Chest: chest non-tender, lungs clear, normal breath sounds, no respiratory distress Cardiovascular: regular rate, rhythm, no JVD Abdomen/GI: soft, + pertinent finding (left lower quadrant tenderness, no rebound , active bowel sound ) Extremities/Musculoskelatal: + pedal edema (+ 2 ) Neurologic/Psych: no motor/sensory deficits, alert, oriented x 3 Hospital Course Intraabdominal Abscess appreciate GI, surgery and ID input continue IV Invanz for now repeat CT abdomen /Pelvis shows improvement of size of abscess D/w GI plan for transfer to tertiary center for definitive tx ileostomy spoke with Pt , in [place] [facility] [place] it to be done later part of the day as Daughter arrives to Hospital Hx. of DVT/PE; Factor V Leiden Mutation continue Lovenox DM2 continue sliding scale insulin Hematuria-resolved appreciate urology eval CT abdomen finding of irregular bladder has been stable , prior biopsy was benign outpatient follow-up monitor H/H Klebsiella UTI continue Invanz Hx.of Seizure Disorder continue home medications TIA continue aspirin, statin Head CT no acute findings Hypothyroidism TSH wnl continue Synthroid Restless Leg Syndrome Requip resumed Hx. of Lung Nodule CXR PA, lateral, oblique-in conclusive recommends CT chest can be done as out patient DNR/DNI DISPOSITION : Transfer to [facility] today Accepting physician Dr Jacobo Total time spent on discharge = 35 MINS This includes examination of the patient, discharge planning, medication reconciliation, and communication with other providers. Discharge Instructions Discharge Instructions Date of Service Mar 02, 2017. Admission Reason for Admission: Abdominal Abscess;Abdominal Pain Discharge Discharge Diagnosis / Problem: RECURRENT ABDOMINAL ABSCESS Discharge Goals Goal(s): Improve disease control, Diagnostic testing, Therapeutic intervention Activity Recommendations Activity Limitations: resume your previous activity . Instructions / Follow-Up Instructions / Follow-Up TRANSFER TO [facility] FOR FURTHER MANAGEMENT OF ILEOCOLIC FISTULA , RECURRENT ABDOMINAL ABSCES Current Hospital Diet Patient's current hospital diet: Low Fiber Diet, Diabetes Type 2 Diet Discharge Diet Recommended Diet: Diabetes Type 2 Diet, Low Fiber Diet Pending Studies Studies pending at discharge: no Laboratory Results Hemoglobin A1c Test 02/25/17 07:04 Range/Units Estimated Average Glucose 103 mg/dl Hemoglobin A1c 5.2 4.5-5.6 % Lipid Panel Test 12/24/16 05:25 Range/Units Triglycerides Level 295 H 0-150 mg/dl Medical Emergencies . Who to Call and When: Medical Emergencies: If at any time you feel your situation is an emergency, please call 911 immediately. . Non-Emergent Contact Non-Emergency issues call your: Primary Care Provider . . "Provider Documentation" section prepared by Corinne Draper. . VTE Core Measure Inpt VTE Proph given/why not?: Desmond Vale, SCD's Additional Copies To Anabel Laird M.D.
[2017-03-02 17:03] VITALS: BP 150/64; PULSE 72; TEMP 36.4; O2SAT 98
[2017-03-02] MEDS: ERTAPENEM IV 1 GM in SODIUM CHLOR 0.9% AD-VAN 50ML 50 ML IV SCH (18:50)
== END 2017-03-02 19:26 | disposition short-term general hospital (02) | DRG 863 ==
LOC: C.EDB 12:27 → C.MSN 18:09 → ENRESERV 18:24
PROVIDERS: ADMIT Hospitalist; ATTEND Hospitalist
DX: T81.4XXA Infection following a procedure, initial encounter (principal); K63.0 Abscess of intestine; K63.2 Fistula of intestine; N39.0 Urinary tract infection, site not specified; K92.1 Melena; D68.51 Activated protein C resistance; Y83.2 Surgical operation with anastomosis, bypass or graft as the cause of abnormal reaction of the patient, or of later complication, without mention of misadventure at the time of the procedure; B96.20 Unspecified Escherichia coli [E. coli] as the cause of diseases classified elsewhere; Z16.12 Extended spectrum beta lactamase (ESBL) resistance; Z16.24 Resistance to multiple antibiotics; B96.1 Klebsiella pneumoniae [K. pneumoniae] as the cause of diseases classified elsewhere; N30.81 Other cystitis with hematuria; R19.7 Diarrhea, unspecified; R91.1 Solitary pulmonary nodule; I10 Essential (primary) hypertension; E11.42 Type 2 diabetes mellitus with diabetic polyneuropathy; E78.00 Pure hypercholesterolemia, unspecified; G40.909 Epilepsy, unspecified, not intractable, without status epilepticus; E03.9 Hypothyroidism, unspecified; G25.81 Restless legs syndrome; Z66 Do not resuscitate; Z90.49 Acquired absence of other specified parts of digestive tract; Z95.828 Presence of other vascular implants and grafts; Z95.0 Presence of cardiac pacemaker; Z86.73 Personal history of transient ischemic attack (TIA), and cerebral infarction without residual deficits; Z86.718 Personal history of other venous thrombosis and embolism; Z86.711 Personal history of pulmonary embolism; Z79.01 Long term (current) use of anticoagulants; Z79.82 Long term (current) use of aspirin; Z79.899 Other long term (current) drug therapy; Z79.891 Long term (current) use of opiate analgesic

== ENCOUNTER 2017-03-15 16:41 | Emergency (ER) | payer OTHER ==
[~2017-03-15] VITALS: Ht 165.1 cm; Wt 89.2 kg
[~2017-03-15 16:41] MED LIST changes: -ASPI81TA28 PO; -CPR500 PO; -LVNIS60 SQ; +METH1TAB5 PO; -METR-163 PO
[2017-03-15 16:53] VITALS: TEMP 36.7; Ht 165.1 cm; Wt 89.2 kg
[2017-03-15] MEDS ORDERED: ONDANSETRON 4MG OD TAB PO ONE (17:15)
--- NOTE | 2017-03-15 17:40 | DIAGNOSTIC IMAGING REPORT ---
HEAD WITHOUT CONTRAST (CT) CT DOSE: 537.48 mGy.cm HISTORY: Mental status change eval for bleed TECHNIQUE: Multiaxial CT images of the head were performed without the use of intravenous contrast. A dose lowering technique was utilized adhering to the principles of ALARA. Comparison: 02/24/2017 Findings: The paranasal sinuses and mastoid air cells are clear. The calvarium and skull base are intact. The ventricles and sulci are within normal limits. There is no mass, hematoma, midline shift, or acute infarct. Impression: No acute intracranial abnormality. The above report was generated using voice recognition software. It may contain grammatical, syntax or spelling errors. Electronically signed by: Marcos Gutiérrez M.D. 03/15/2017 5:39 PM Dictated Date/Time: 03/15/2017 5:38 PM
--- NOTE | 2017-03-15 17:43 | DIAGNOSTIC IMAGING REPORT ---
CERVICAL SPINE W/O CT DOSE: 258.84 mGy.cm HISTORY: Trauma eval for fx TECHNIQUE: Multiaxial CT images of the cervical spine were performed and reformatted in the sagittal and coronal plane without the use of contrast. A dose lowering technique was utilized adhering to the principles of ALARA. COMPARISON: None. FINDINGS: No fractures. No subluxation. Prevertebral soft tissues and the C1-C2 interval are intact. No pneumothorax. Mild degenerative disc change throughout. Minimal anterior posterior reactive osteophytic change. No significant compromise of the spinal canal. IMPRESSION: No fractures within the cervical spine. Mild degenerative change for age. The above report was generated using voice recognition software. It may contain grammatical, syntax or spelling errors. Electronically signed by: Marcos Gutiérrez M.D. 03/15/2017 5:41 PM Dictated Date/Time: 03/15/2017 5:39 PM
--- NOTE | 2017-03-15 18:38 | DIAGNOSTIC IMAGING REPORT ---
LEFT RIBS UNILATERAL WITH PA CHEST CLINICAL HISTORY: eval for fx trauma COMPARISON STUDY: 02/28/2017 FINDINGS: Cortical fractures anterior left eighth and ninth ribs. All remaining ribs are unremarkable. Lungs are clear with no evidence for pneumothorax. IMPRESSION: Nondisplaced cortical fractures left eighth and ninth ribs. The lungs are clear. The above report was generated using voice recognition software. It may contain grammatical, syntax or spelling errors. Electronically signed by: Marcos Gutiérrez M.D. 03/15/2017 6:36 PM Dictated Date/Time: 03/15/2017 6:35 PM
--- NOTE | 2017-03-15 18:39 | DIAGNOSTIC IMAGING REPORT ---
LEFT SHOULDER MIN 2 VIEWS ROUTINE CLINICAL HISTORY: eval for fx trauma COMPARISON: None. DISCUSSION: The bones and joint spaces appear intact. There is no evidence of fracture, dislocation or bony disease. There is no evidence for soft tissue swelling. IMPRESSION: Negative study. The above report was generated using voice recognition software. It may contain grammatical, syntax or spelling errors. Electronically signed by: Marcos Gutiérrez M.D. 03/15/2017 6:37 PM Dictated Date/Time: 03/15/2017 6:37 PM
[2017-03-15 19:23] VITALS: BP 124/76; PULSE 77; O2SAT 98
--- NOTE | 2017-03-16 | EMERGENCY ROOM VISIT NOTE ---
History Report prepared by Juhi: Ryanne Loera Under the Supervision of: Dr. Vinny Caraballo M.D. 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 The patient presents to the ED by EMS. She received morphine in route which has improved her pain, but caused her to become nauseous. She was putting on a sweater when her arm got caught causing her to lose her balance and fall to the ground. She fell onto her left side. She reports left shoulder pain and headache. She has pain along the back of her neck. She reports left rib pain and notes that she has a pacemaker. She denies any LOC, back pain, hip pain, abdominal pain, or SOB. 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 Pt denies hip pain. Review of Systems See HPI for pertinent positives & negatives. A total of 10 systems reviewed and were otherwise negative. Past Medical & Surgical Medical Problems: (1) Abdominal abscess (2) Abdominal pain (3) Diabetes (4) Dizzy spells (5) DVT (deep venous thrombosis) (6) Heart disease (7) History of pulmonary embolism (8) Hypertension (9) Pacemaker (10) Syncope Surgical Problems: (1) H/O: hysterectomy (2) History of partial surgical removal of colon (3) Hx of appendectomy (4) Hx of cholecystectomy Family History Cancer Diabetes mellitus Heart disease Hypertension Kidney disease Kidney stones Social History Smoking Status: Unknown if Ever Smoked Alcohol Use: none Drug Use: none Marital Status: Housing Status: lives with family Occupation Status: unemployed Current/Historical Medications Scheduled Ascorbic Acid (Vitamin C), 1,000 MG PO BID Calcium Carbonate-Cholecalcife (Caltrate 600+D), 1 TAB PO DAILY Carbamazepine (Tegretol), 300 MG PO BID Citalopram Hydrobromide (Citalopram Hydrobromide), 10 MG PO QAM Fenofibrate (Fenofibrate), 150 MG PO DAILY Fish Oil ([place]-3), 1 CAP PO BID Folic Acid (Folvite), 400 MCG PO QAM Furosemide (Lasix), 40 MG PO DAILY Gabapentin (Neurontin), 1,200 MG PO HS Hydroxyurea (Hydrea Cap), 500 MG PO BID Hydroxyurea (Hydroxyurea), 500 MG PO UD Levothyroxine Sodium (Levothyroxine Sodium), 25 MCG PO QAM Methenamine Hippurate (Methenamine Hippurate), 1 GM PO BID Metoprolol Tartrate (Lopressor) (Lopressor), 25 MG PO BID Multiple Vitamins W/ Minerals (Preservision Areds 2), 1 CAP PO BID Niacin (Niacin), 500 MG PO QAM Pantoprazole (Protonix), 40 MG PO QAM Ropinirole (Requip), 3 MG PO HS Ropinirole HCl (Ropinirole HCl), 1 MG PO QAM Rosuvastatin Calcium (Crestor), 5 MG PO QAM Sitagliptin Phosphate (Januvia), 100 MG PO QAM Scheduled PRN Metolazone (Zaroxolyn), 2.5 MG PO DAILY PRN for fluid retention Oxycodone/Acetaminophen 5MG/325MG (Percocet 5MG/325MG), 1 TABLET PO Q4H PRN for Pain Allergies Coded Allergies: Butorphanol (Verified Allergy, Intermediate, HIVES, 03/15/17) Chlorzoxazone (Verified Allergy, Intermediate, HIVES, 03/15/17) Erythromycin (Verified Allergy, Intermediate, HIVES, 03/15/17) Naloxone (Verified Allergy, Intermediate, HIVES, 03/15/17) Nitrofurantoin (Verified Allergy, Intermediate, HIVES, 03/15/17) Pentazocine (Verified Allergy, Intermediate, HIVES, 03/15/17) Diazepam (Verified Adverse Reaction, Unknown, FELLS LIKE CRAWLING UP A WALL, 03/15/17) Physical Exam Vital Signs Date Time Temp Pulse Resp B/P (MAP) Pulse Ox O2 Delivery O2 Flow Rate FiO2 03/15/17 19:23 77 16 124/76 98 03/15/17 18:30 61 24 149/78 93 Room Air 03/15/17 16:53 36.7 66 20 170/75 94 Room Air Physical Exam Constitutional: Vital signs reviewed. Eyes: Pupils are equal round reactive to light. Conjunctiva are noninjected. ENT: Pharynx is clear without erythema or exudate. Mucous membranes are moist. Midline tenderness to the cervical spine without step off, bulky towel wrapped around patient's neck. Respiratory: Clear to auscultation bilaterally. Breath sounds are equal bilaterally. Cardiovascular: Regular rate and rhythm. No rubs or gallops. GI: Soft, nondistended and nontender. Bowel sounds are present. Musculoskeletal: Diffuse tenderness to the left anterior shoulder and upper humerus without tenderness distally, normal distal pulses, tender to the left ribs, no hip tenderness. Integumentary: No cyanosis. Neurological: The patient is awake and alert. Cranial nerves II-XII are intact. Motor is 5 out of 5 all extremities. Sensation is intact to light touch all extremities. Normal speech. No pronator drift. Psychiatric: Normal affect. Medical Decision & Procedures ER Provider Diagnostic Interpretation: X-ray results as stated below per interpretation by me and the radiologist. Radiology results as stated below per my review and the radiologist's interpretation: LEFT SHOULDER MIN 2 VIEWS ROUTINE CLINICAL HISTORY: eval for fx trauma COMPARISON: None. DISCUSSION: The bones and joint spaces appear intact. There is no evidence of fracture, dislocation or bony disease. There is no evidence for soft tissue swelling. IMPRESSION: Negative study. The above report was generated using voice recognition software. It may contain grammatical, syntax or spelling errors. Electronically signed by: Marcos Gutiérrez M.D. 03/15/2017 6:37 PM Dictated Date/Time: 03/15/2017 6:37 PM LEFT RIBS UNILATERAL WITH PA CHEST CLINICAL HISTORY: eval for fx trauma COMPARISON STUDY: 02/28/2017 FINDINGS: Cortical fractures anterior left eighth and ninth ribs. All remaining ribs are unremarkable. Lungs are clear with no evidence for pneumothorax. IMPRESSION: Nondisplaced cortical fractures left eighth and ninth ribs. The lungs are clear. The above report was generated using voice recognition software. It may contain grammatical, syntax or spelling errors. Electronically signed by: Marcos Gutiérrez M.D. 03/15/2017 6:36 PM Dictated Date/Time: 03/15/2017 6:35 PM LEFT HUMERUS MIN 2 VIEWS ROUTINE CLINICAL HISTORY: eval for fx trauma COMPARISON: None. DISCUSSION: The bones and joint spaces appear intact. There is no evidence of fracture, dislocation or bony disease. There is no evidence for soft tissue swelling. IMPRESSION: Negative study. The above report was generated using voice recognition software. It may contain grammatical, syntax or spelling errors. Electronically signed by: Marcos Gutiérrez M.D. 03/15/2017 6:37 PM Dictated Date/Time: 03/15/2017 6:37 PM HEAD WITHOUT CONTRAST (CT) CT DOSE: 537.48 mGy.cm HISTORY: Mental status change eval for bleed TECHNIQUE: Multiaxial CT images of the head were performed without the use of intravenous contrast. A dose lowering technique was utilized adhering to the principles of ALARA. Comparison: 02/24/2017 Findings: The paranasal sinuses and mastoid air cells are clear. The calvarium and skull base are intact. The ventricles and sulci are within normal limits. There is no mass, hematoma, midline shift, or acute infarct. Impression: No acute intracranial abnormality. The above report was generated using voice recognition software. It may contain grammatical, syntax or spelling errors. Electronically signed by: Marcos Gutiérrez M.D. 03/15/2017 5:39 PM Dictated Date/Time: 03/15/2017 5:38 PM CERVICAL SPINE W/O CT DOSE: 258.84 mGy.cm HISTORY: Trauma eval for fx TECHNIQUE: Multiaxial CT images of the cervical spine were performed and reformatted in the sagittal and coronal plane without the use of contrast. A dose lowering technique was utilized adhering to the principles of ALARA. COMPARISON: None. FINDINGS: No fractures. No subluxation. Prevertebral soft tissues and the C1-C2 interval are intact. No pneumothorax. Mild degenerative disc change throughout. Minimal anterior posterior reactive osteophytic change. No significant compromise of the spinal canal. IMPRESSION: No fractures within the cervical spine. Mild degenerative change for age. The above report was generated using voice recognition software. It may contain grammatical, syntax or spelling errors. Electronically signed by: Marcos Gutiérrez M.D. 03/15/2017 5:41 PM Dictated Date/Time: 03/15/2017 5:39 PM Medications Administered Medications (Trade) Dose Ordered Sig/Tone Route Start Time Stop Time Status Last Admin Dose Admin Ondansetron HCl (Zofran Odt) 4 mg ONE ONCE PO 03/15/17 17:15 8/16/17 17:16 DC 03/15/17 17:49 4 MG ED Course 170: The patient was evaluated in room A2. A complete history and physical exam was performed. 1714: Zofran Odt 4 mg PO. 1803: I went to reevaluate the patient, but she was at X-ray. The nurse informed me that he removed the cervical collar. 1903: I reevaluated the patient. I discussed the test results with her. She had Percocet at home for pain. She is able to move her neck although she notes that it feels stiff. She verbalized agreement of the treatment plan. She was discharged home. Medical Decision This is a 81-year-old female who presents with injuries after fall. Differential diagnosis includes contusion, concussion, skull fracture, intracranial hemorrhage, cervical fracture, humeral fracture, shoulder dislocation. I did perform a limited focused review of portions of the patient' s old chart on the electronic medical record. The patient has had no recent pertinent visits to this hospital. I did evaluate the patient as noted above. The patient is presenting with injuries after a mechanical fall. A rigid cervical collar was placed. She did receive IM morphine prior to arrival. She is nauseated and was given Zofran 4 mg ODT. I did order a CT of the cervical spine and head. I did review the images myself as well as the radiology report as described above. There was no evidence of acute fracture or intracranial abnormality. The c-collar was removed. The patient was able to move her neck although she had a little bit of stiffness with it. I did order and personally review the patient's x-rays as described above. She does have nondisplaced fractures of her ribs on the left side. I did discuss the test results with the patient. She was given an incentive spirometer. She does have pain medication at home which she will take as needed. She was advised follow closely with her doctor. I did review with return instructions with her. Head Trauma GCS Score: 15 Medication Reconcilliation Current Medication List: was personally reviewed by me Blood Pressure Screening Patient's blood pressure: Elevated blood pressure Blood pressure disposition: Referred to PCP Impression Primary Impression: Acute head injury Additional Impressions: Fracture of rib of left side Contusion of left shoulder Neck pain Fall Scribe Attestation The scribe's documentation has been prepared under my direct and personally reviewed by me in its entirety. I confirm that the note above accurately reflects all work, treatment, procedures, and medical decision making performed by me. Departure Information Dispostion Home / Self-Care Referrals Yan Randolph (PCP) Forms HOME CARE DOCUMENTATION FORM, IMPORTANT VISIT INFORMATION Patient Instructions ED Fx Rib, ED Head Injury Closed, My [facility] Additional Instructions You have been examined and treated today on an emergency basis only. This is not a substitute for, or an effort to provide, complete comprehensive medical care. It is impossible to recognize and treat all injuries or illnesses in a single emergency department visit. It is therefore important that you follow up closely with your physician. Call as soon as possible for an appointment. Return for worsening symptoms or if you develop fever, numbness or weakness on one side of your body, difficulties with your speech or walking, shortness of breath, abdominal pain or any other concerning symptoms. Problem Qualifiers Primary Impression: Acute head injury Encounter type: initial encounter Qualified Codes: S09.90XA - Unspecified injury of head, initial encounter Additional Impressions: Fracture of rib of left side Encounter type: initial encounter Rib fracture type: multiple ribs Fracture type: closed Qualified Codes: S22.42XA - Multiple fractures of ribs , left side, initial encounter for closed fracture Contusion of left shoulder Encounter type: initial encounter Qualified Codes: S40.012A - Contusion of left shoulder, initial encounter Fall Encounter type: initial encounter Qualified Codes: W19.XXXA - Unspecified fall, initial encounter
== END 2017-03-15 19:24 | disposition home or self-care (01) ==
LOC: EDBD 16:41 → C.EDA 16:44
DX: S09.90XA Unspecified injury of head, initial encounter (principal); S22.32XA Fracture of one rib, left side, initial encounter for closed fracture; S40.012A Contusion of left shoulder, initial encounter; M54.2 Cervicalgia; W19.XXXA Unspecified fall, initial encounter; R11.0 Nausea; I10 Essential (primary) hypertension; E11.9 Type 2 diabetes mellitus without complications; I51.9 Heart disease, unspecified; Z95.0 Presence of cardiac pacemaker; Z86.711 Personal history of pulmonary embolism; Z86.718 Personal history of other venous thrombosis and embolism; Z90.49 Acquired absence of other specified parts of digestive tract; Z90.710 Acquired absence of both cervix and uterus; Z98.890 Other specified postprocedural states; Z79.899 Other long term (current) drug therapy; Z88.8 Allergy status to other drugs, medicaments and biological substances; Z80.9 Family history of malignant neoplasm, unspecified; Z83.3 Family history of diabetes mellitus; Z82.49 Family history of ischemic heart disease and other diseases of the circulatory system; Z84.1 Family history of disorders of kidney and ureter

== ENCOUNTER 2017-03-22 08:52 | Emergency (ER) | payer OTHER ==
[~2017-03-22] VITALS: Ht 165.1 cm; Wt 90.0 kg
[2017-03-22 08:59] VITALS: TEMP 36.2; Ht 165.1 cm; Wt 90.0 kg
[2017-03-22] MEDS ORDERED: SODIUM CHLORIDE 0.9% 1000ML 500 ML IV STA (09:06)
--- NOTE | 2017-03-22 09:16 | EMERGENCY ROOM VISIT NOTE ---
History Report prepared by Juhi: Gaby Tony Under the Supervision of: Dr. Gonzales Chakraborty M.D. First contact with patient: 08:59 Chief Complaint: FALL Stated Complaint: FALL History of Present Illness The patient is a 81 year old female who presents to the Emergency Room with complaints of a sudden fall that occurred just prior to arrival. Per nursing staff, the patient slipped and fell in the bathroom this morning. Nursing staff denies any loss of consciousness and the patient denies any head trauma. The patient reports that she could not fully straighten her legs to walk this morning. She reports lower back pain with movement. The patient reports left leg pain. She states that she lives with her daughter. The patient states that she is currently under IV antibiotic treatment for an abdominal abscess. She states that she has another 6 weeks of antibiotics yet. The patient reports increased leg weakness over the last several days. She reports a normal fluid intake. The patient reports normal bowel movements, but notes burning with urination. She denies any fever. The patient reports taking 60 units of Lovenox injections twice per day--she did not have her morning dose of Lovenox today. Source of History: patient, nursing staff Onset: just prior to arrival Position: other (global) Quality: other (fall) Timing: other (sudden) Associated Symptoms: + back pain (lower), + urinary symptoms (burning with urination), + weakness (lower extremity), No LOC, No fevers Note: Associated Symptoms: left leg pain Review of Systems See HPI for pertinent positives & negatives. A total of 10 systems reviewed and were otherwise negative. Past Medical & Surgical Medical Problems: (1) Abdominal abscess (2) Abdominal pain (3) Diabetes (4) Dizzy spells (5) DVT (deep venous thrombosis) (6) Heart disease (7) History of pulmonary embolism (8) Hypertension (9) Pacemaker (10) Syncope Surgical Problems: (1) H/O: hysterectomy (2) History of partial surgical removal of colon (3) Hx of appendectomy (4) Hx of cholecystectomy Family History Cancer Diabetes mellitus Heart disease Hypertension Kidney disease Kidney stones Social History Smoking Status: Unknown if Ever Smoked Alcohol Use: none Drug Use: none Marital Status: Housing Status: lives with family Occupation Status: unemployed Current/Historical Medications Scheduled Ascorbic Acid (Vitamin C), 1,000 MG PO BID Calcium Carbonate-Cholecalcife (Caltrate 600+D), 1 TAB PO DAILY Carbamazepine (Tegretol), 300 MG PO BID Ceftriaxone Sod (Rocephin), 1 GM IV DAILY Citalopram Hydrobromide (Citalopram Hydrobromide), 10 MG PO QAM Fenofibrate (Fenofibrate), 150 MG PO DAILY Fish Oil (Lomax-3), 1 CAP PO BID Folic Acid (Folvite), 400 MCG PO QAM Furosemide (Lasix), 40 MG PO DAILY Gabapentin (Neurontin), 1,200 MG PO HS Hydroxyurea (Hydrea Cap), 500 MG PO BID Hydroxyurea (Hydroxyurea), 500 MG PO UD Levothyroxine Sodium (Levothyroxine Sodium), 25 MCG PO QAM Methenamine Hippurate (Methenamine Hippurate), 1 GM PO BID Metoprolol Tartrate (Lopressor) (Lopressor), 25 MG PO BID Multiple Vitamins W/ Minerals (Preservision Areds 2), 1 CAP PO BID Niacin (Niacin), 500 MG PO QAM Pantoprazole (Protonix), 40 MG PO QAM Ropinirole (Requip), 3 MG PO HS Ropinirole HCl (Ropinirole HCl), 1 MG PO QAM Rosuvastatin Calcium (Crestor), 5 MG PO QAM Sitagliptin Phosphate (Januvia), 100 MG PO QAM Scheduled PRN Metolazone (Zaroxolyn), 2.5 MG PO DAILY PRN for fluid retention Oxycodone/Acetaminophen 5MG/325MG (Percocet 5MG/325MG), 1 TABLET PO Q4H PRN for Pain Allergies Coded Allergies: Butorphanol (Verified Allergy, Intermediate, HIVES, 03/22/17) Chlorzoxazone (Verified Allergy, Intermediate, HIVES, 03/22/17) Erythromycin (Verified Allergy, Intermediate, HIVES, 03/22/17) Naloxone (Verified Allergy, Intermediate, HIVES, 03/22/17) Nitrofurantoin (Verified Allergy, Intermediate, HIVES, 03/22/17) Pentazocine (Verified Allergy, Intermediate, HIVES, 03/22/17) Diazepam (Verified Adverse Reaction, Unknown, FELLS LIKE CRAWLING UP A WALL, 03/22/17) Physical Exam Vital Signs Date Time Temp Pulse Resp B/P (MAP) Pulse Ox O2 Delivery O2 Flow Rate FiO2 03/22/17 11:42 60 18 153/64 96 03/22/17 11:09 60 03/22/17 10:56 60 18 153/64 96 Room Air 03/22/17 09:57 70 18 161/66 97 Room Air 03/22/17 09:23 67 03/22/17 08:59 36.2 72 18 146/76 97 Room Air Physical Exam GENERAL: Patient is in no acute distress. HEENT: No acute trauma, normocephalic atraumatic, mucous membranes dry, no nasal congestion, no scleral icterus. NECK: No stridor, no adenopathy, no meningismus, trachea is midline. LUNGS: Clear to auscultation bilaterally, no wheeze, no rhonchi, breath sounds equal. HEART: Without murmurs gallops or rubs, regular rate and rhythm. ABDOMEN: Soft, nontender, bowel sounds positive, no hernias, no peritonitis. EXTREMITIES: No pain to move the joints of the lower extremities, no gross deformity to either lower extremity, no cellulitis, contusion to the lateral left hip. NEUROLOGIC: Oriented x 3, no acute motor or sensory deficits, no focal weakness. SKIN: No rash, no jaundice, no diaphoresis. Medical Decision & Procedures ER Provider Diagnostic Interpretation: Radiology results as stated below per my review and radiologist interpretation: LEFT PELVIS/UNILATERAL HIP 2-3VIEWS CLINICAL HISTORY: Fall, pain. Left hip pain. COMPARISON STUDY: None. FINDINGS: No fracture or dislocation within the pelvis or hips. The sacrum is intact. Mild osteoarthritis within the bilateral hips. An IVC filter is noted overlying the right side of the L4 vertebral body. Suture material within the left lower quadrant. IMPRESSION: No fracture or dislocation within the pelvis or hips. Electronically signed by: Gregory Roth M.D. 03/22/2017 9:43 AM Dictated Date/Time: 03/22/2017 9:40 AM CHEST 1 VW FRONT-NOT PORTABLE CLINICAL HISTORY: 81 years-old Female presenting with EVALUATE ALTERED MENTAL STATUS/WEAKNESS. TECHNIQUE: Portable upright AP view of the chest was obtained. COMPARISON: 02/28/2017. FINDINGS: Left-sided pacer with leads to the right atrium and right ventricular apex. Mild cardiac silhouette enlargement as on prior exam. Previously suggested right upper lung opacity is not apparent on the current radiograph. No focal infiltrate. Pleural spaces clear. Degenerative changes of the acromioclavicular joints. Upper abdomen normal. IMPRESSION: 1. No acute cardiopulmonary disease. Previously questioned right upper lung opacity is not apparent on the current radiograph. Electronically signed by: Aly Way M.D. 03/22/2017 9:42 AM Dictated Date/Time: 03/22/2017 9:[address] CT DOSE: 788.63 mGycm HISTORY: fall, on thinners TECHNIQUE: Multiaxial CT images of the head were performed without the use of intravenous contrast. Automated exposure control was utilized for this study. A dose lowering technique was utilized adhering to the principles of ALARA. Comparison: Head CT 03/15/2017. Findings: The paranasal sinuses and mastoid air cells are clear. The calvarium and skull base are intact. Interval development of a 3.5 cm right frontal lobe intraparenchymal hematoma at the high convexity. Contains a small fluid fluid level consistent with active hemorrhage. This results in mild mass effect along the right lateral ventricle. There is ventricular extension of the hemorrhage into the right lateral ventricle. There is 2 mm of left midline shift. Surrounding vasogenic edema within the right frontal lobe. Impression: Interval development of a 3.5 cm right frontal lobe intraparenchymal hematoma with extension into the right lateral ventricle. There is 2 mm of left midline shift and surrounding vasogenic edema. Recommend follow-up to ensure complete resolution. Electronically signed by: Gregory Roth M.D. 03/22/2017 10:36 AM Dictated Date/Time: 03/22/2017 10:[address] DOSE: 682.34 mGycm HISTORY: fall, low back pain TECHNIQUE: Multiaxial CT images of the lumbar spine were performed and reformatted in the sagittal and coronal plane without the use of contrast. A dose lowering technique was utilized adhering to the principles of ALARA. COMPARISON: None. FINDINGS: No fractures or subluxation within the lumbar spine. Moderate disc space narrowing at L4-L5. Small endplate osteophytes seen throughout the lumbar spine. An IVC filter is noted. A few hypodense lesions within the left kidney with the largest measuring 3 cm. These likely represent cysts. Paraspinal soft tissues are unremarkable. Mild central canal narrowing within the mid to lower lumbar spine due to the degenerative changes. IMPRESSION: No fracture or subluxation within the lumbar spine. Electronically signed by: Gregory Roth M.D. 03/22/2017 10:49 AM Dictated Date/Time: 03/22/2017 10:44 AM Laboratory Results 03/22/17 09:41 Red Blood Count 3.29, Mean Corpuscular Volume 108.8, Mean Corpuscular Hemoglobin 36.8, Mean Corpuscular Hemoglobin Concent 33.8, Mean Platelet Volume 10.0, Neutrophils (%) (Auto) 76.3, Lymphocytes (%) (Auto) 17.1, Monocytes (%) ( Auto) 4.1, Eosinophils (%) (Auto) 1.9, Basophils (%) (Auto) 0.2, Neutrophils # ( Auto) 4.07, Lymphocytes # (Auto) 0.91, Monocytes # (Auto) 0.22, Eosinophils # ( Auto) 0.10, Basophils # (Auto) 0.01 03/22/17 09:41 Test 03/22/17 09:41 03/22/17 09:55 White Blood Count 5.33 K/uL (4.8-10.8) Red Blood Count 3.29 M/uL (4.2-5.4) Hemoglobin 12.1 g/dL (12.0-16.0) Hematocrit 35.8 % (37-47) Mean Corpuscular Volume 108.8 fL (80-100) Mean Corpuscular Hemoglobin 36.8 pg (25-34) Mean Corpuscular Hemoglobin Concent 33.8 g/dl (32-36) Platelet Count 300 K/uL (130-400) Mean Platelet Volume 10.0 fL (7.4-10.4) Neutrophils (%) (Auto) 76.3 % Lymphocytes (%) (Auto) 17.1 % Monocytes (%) (Auto) 4.1 % Eosinophils (%) (Auto) 1.9 % Basophils (%) (Auto) 0.2 % Neutrophils # (Auto) 4.07 K/uL (1.4-6.5) Lymphocytes # (Auto) 0.91 K/uL (1.2-3.4) Monocytes # (Auto) 0.22 K/uL (0.11-0.59) Eosinophils # (Auto) 0.10 K/uL (0-0.5) Basophils # (Auto) 0.01 K/uL (0-0.2) RDW Standard Deviation 61.4 fL (36.4-46.3) RDW Coefficient of Variation 15.7 % (11.5-14.5) Immature Granulocyte % (Auto) 0.4 % Immature Granulocyte # (Auto) 0.02 K/uL (0.00-0.02) Prothrombin Time 11.6 SECONDS (9.0-12.0) Prothromb Time International Ratio 1.1 (0.9-1.1) Activated Partial Thromboplast Time 28.5 SECONDS (21.0-31.0) Partial Thromboplastin Ratio 1.1 Anion Gap 3.0 mmol/L (3-11) Est Creatinine Clear Calc Drug Dose 50.6 ml/min Estimated GFR () 62.1 Estimated GFR (Non- 53.5 BUN/Creatinine Ratio 29.4 (10-20) Calcium Level 9.0 mg/dl (8.5-10.1) Magnesium Level 1.9 mg/dl (1.8-2.4) Total Bilirubin 0.4 mg/dl (0.2-1) Aspartate Amino Transf (AST/SGOT) 10 U/L (15-37) Alanine Aminotransferase (ALT/SGPT) 13 U/L (12-78) Alkaline Phosphatase 53 U/L (45-117) Total Creatine Kinase 24 U/L (26-192) Troponin I < 0.015 ng/ml (0-0.045) Total Protein 7.0 gm/dl (6.4-8.2) Albumin 3.1 gm/dl (3.4-5.0) Globulin 3.9 gm/dl (2.5-4.0) Albumin/Globulin Ratio 0.8 (0.9-2) Thyroid Stimulating Hormone (TSH) 2.890 uIu/ml (0.300-4.500) Free Thyroxine 0.92 ng/dl (0.80-1.60) Urine Color YELLOW Urine Appearance CLEAR (CLEAR) Urine pH 7.5 (4.5-7.5) Urine Specific [place] 1.014 (1.000-1.030) Urine Protein TRACE (NEG) Urine Glucose (UA) NEG (NEG) Urine Ketones NEG (NEG) Urine Occult Blood 1+ (NEG) Urine Nitrite NEG (NEG) Urine Bilirubin NEG (NEG) Urine Urobilinogen NEG (NEG) Urine Leukocyte Esterase NEG (NEG) Urine WBC (Auto) 1-5 /hpf (0-5) Urine RBC (Auto) 5-10 /hpf (0-4) Urine Hyaline Casts (Auto) 0 /lpf (0-5) Urine Epithelial Cells (Auto) 5-10 /lpf (0-5) Urine Bacteria (Auto) NEG (NEG) Laboratory results reviewed by me. Medications Administered Medications (Trade) Dose Ordered Sig/Tone Route Start Time Stop Time Status Last Admin Dose Admin Sodium Chloride 500 ml @ 999 mls/hr Q31M STAT IV 03/22/17 09:06 03/22/17 09:36 DC 03/22/17 10:33 999 MLS/HR Morphine Sulfate (MoRPHine SULFATE INJ) 2 mg NOW STAT IV 03/22/17 10:59 03/22/17 11:01 DC 03/22/17 11:12 2 MG Ondansetron HCl (Zofran Inj) 4 mg NOW STAT IV 03/22/17 10:59 03/22/17 11:01 DC 03/22/17 11:12 4 MG ECG Indication: other (fall) Rate (beats per minute): 66 Rhythm: sinus rhythm Findings: 1st degree AV block, no acute ischemic change, no ectopy ED Course 0900: The patient was evaluated in room A11B. A complete history and physical exam was performed. 0906: Ordered Sodium Chloride 500 ml @ 999 mls/hr IV. 1034: Per Dr. Roth, Radiology, he is not convinced that the patient has a tumor, but does not an ICH that is extending into a ventricle. He suggests that the patient is transferred to a tertiary care center. 1035: I reevaluated the patient and she is resting with her daughter at the bedside. I discussed the exam findings with them and I discussed the treatment plan. The patients daughter states that over the past several days the patient has been increasingly confused and forgetful. She states that the patient did not receive her Lovenox this morning. They have decided that they would like the patient transferred to [facility]. They are in agreement with the treatment plan. 1042: I discussed the patients case with Dr. Sims, Neurosurgery [facility]. He states that the patient should be sent to the Emergency Department via ALS immediately and has accepted the patient under his care. I spoke to Dr. Booth, [facility] Emergency Department. He is aware that the patient is coming to their department. 1059: Per nursing staff the patient is experiencing a headache. Ordered Zofran Inj 4 mg IV, Morphine Sulfate 2 mg IV. Medical Decision The patient is a 81 year old female who presents to the ED with complaints of a sudden fall. Differential diagnoses considered include Dehydration, UTI, anemia , electrolyte imbalance, renal failure, hip or pelvic facture, intracranial bleeding, lumbar fracture . There is no leukocytosis or concerning anemia. No significant electrolyte abnormality, kidney failure or hepatitis. The patient appears to be in a euthyroid state. Urinalysis does not show infection. Chest film does not show pneumonia or CHF. Pelvis and left hip films show no acute fractures. Lumbar spine CT shows no acute fracture. EKG shows a sinus rhythm, no acute ischemia. Cardiac enzyme testing times one is not consistent with acute cardiac injury. Brain CT shows a right frontal intraparenchymal hemorrhage with extension into the right lateral ventricle. There is a subtle amount of midline shift. There is no coagulopathy. The patient is awake and alert and oriented. There are no focal neurologic deficits. During her ER stay, she began complaining of a headache. She was given IV morphine and IV Zofran. She received IV saline. Because of the findings on brain CT, I discussed the case with the neurosurgeon at [facility] in [place]. The patient is being sent to their emergency room by ground ambulance. I did write the orders for transfer. I talked to the patient and her daughter about my findings. The daughter states that in retrospect, she has noticed her mother has been more forgetful over the last couple of days. Based on the history and based on the story of today's events, I suspect the area of bleeding lead to the fall and the forgetfulness, I doubt the fall today caused the bleed. Medication Reconcilliation Current Medication List: was personally reviewed by me Blood Pressure Screening Patient's blood pressure: Elevated blood pressure Blood pressure disposition: Elevated BP felt to be situational, Did not require urgent referral Consults Time Called: 1037 Consulting Physician: Dr. Sims, Neurosurgery, Dr. Booth, Emergency Department Returned Call: [phone] I discussed the patients case with Dr. Sims, Neurosurgery [facility]. He states that the patient should be sent to the Emergency Department via ALS immediately and has accepted the patient under his care. I spoke to Dr. Booth, [facility] Emergency Department. He is aware that the patient is coming to their department. Impression Primary Impression: Intracranial bleeding Additional Impressions: Weakness Fall Contusion of left hip Lower back pain Scribe Attestation The scribe's documentation has been prepared under my direction and personally reviewed by me in its entirety. I confirm that the note above accurately reflects all work, treatment, procedures, and medical decision making performed by me. Departure Information Dispostion Transfer Acute Care Facility Referrals Yan Randolph (PCP) Problem Qualifiers
[2017-03-22] MEDS ORDERED: CEFT1INJ57 IV (09:37)
--- NOTE | 2017-03-22 09:43 | DIAGNOSTIC IMAGING REPORT ---
CHEST 1 VW FRONT-NOT PORTABLE CLINICAL HISTORY: 81 years-old Female presenting with EVALUATE ALTERED MENTAL STATUS/WEAKNESS. TECHNIQUE: Portable upright AP view of the chest was obtained. COMPARISON: 02/28/2017. FINDINGS: Left-sided pacer with leads to the right atrium and right ventricular apex. Mild cardiac silhouette enlargement as on prior exam. Previously suggested right upper lung opacity is not apparent on the current radiograph. No focal infiltrate. Pleural spaces clear. Degenerative changes of the acromioclavicular joints. Upper abdomen normal. IMPRESSION: 1. No acute cardiopulmonary disease. Previously questioned right upper lung opacity is not apparent on the current radiograph. Electronically signed by: Aly Way M.D. 03/22/2017 9:42 AM Dictated Date/Time: 03/22/2017 9:41 AM
--- NOTE | 2017-03-22 09:44 | DIAGNOSTIC IMAGING REPORT ---
LEFT PELVIS/UNILATERAL HIP 2-3VIEWS CLINICAL HISTORY: Fall, pain. Left hip pain. COMPARISON STUDY: None. FINDINGS: No fracture or dislocation within the pelvis or hips. The sacrum is intact. Mild osteoarthritis within the bilateral hips. An IVC filter is noted overlying the right side of the L4 vertebral body. Suture material within the left lower quadrant. IMPRESSION: No fracture or dislocation within the pelvis or hips. Electronically signed by: Gregory Roth M.D. 03/22/2017 9:43 AM Dictated Date/Time: 03/22/2017 9:40 AM
[2017-03-22 10:01] LABS: BASO % 0.2 %; BASO ABS # 0.01 K/uL (0-0.2); COMPLETE YES; EOS % 1.9 %; HEMATOCRIT 35.8 % (37-47); IG% 0.4 %; LYMPH % 17.1 %; LYMPH ABS # 0.91 K/uL (1.2-3.4); MEAN CELL VOLUME 108.8 fL (80-100); MEAN CORPUSCULAR HEMOGLOBIN 36.8 pg (25-34); MEAN CORPUSCULAR HGB CONC 33.8 g/dl (32-36); MONO % 4.1 %; NEUT % 76.3 %; PLATELET COUNT 300 K/uL (130-400); RED BLOOD COUNT 3.29 M/uL (4.2-5.4); WHITE BLOOD COUNT 5.33 K/uL (4.8-10.8)
[2017-03-22 10:18] LABS: URINE APPEARANCE CLEAR (CLEAR); URINE BILIRUBIN NEG (NEG); URINE COLOR YELLOW; URINE NITRITE NEG (NEG); URINE PH 7.5 (4.5-7.5); URINE SPECIFIC GRAVITY 1.014 (1.000-1.030); UROBILINOGEN NEG (NEG); ZZURINE CULT IF INDIC CATH NO
[2017-03-22 10:22] LABS: ALT/SGPT 13 U/L (12-78); AST/SGOT 10 U/L (15-37); BLOOD UREA NITROGEN 29 mg/dl (7-18); BUN/CREATININE RATIO 29.4 (10-20); CARBON DIOXIDE 32 mmol/L (21-32); CHLORIDE 99 mmol/L (98-107); GLUCOSE 107 mg/dl (70-99); MAGNESIUM 1.9 mg/dl (1.8-2.4); POTASSIUM 4.7 mmol/L (3.5-5.1); SODIUM 134 mmol/L (136-145)
[2017-03-22 10:25] LABS: INR 1.1 (0.9-1.1); PARTIAL THROMBOPLASTIN RATIO 1.1; PROTHROMBIN TIME (PATIENT) 11.6 SECONDS (9.0-12.0)
[2017-03-22 10:30] LABS: ALB/GLOB RATIO 0.8 (0.9-2); ALKALINE PHOSPHATASE 53 U/L (45-117)
[2017-03-22 10:32] LABS: MANUAL MICROSCOPIC REQUIRED? NO; REVIEW REQ? NO; SULFASALICYLIC ACID POS (NEG)
--- NOTE | 2017-03-22 10:37 | DIAGNOSTIC IMAGING REPORT ---
HEAD CT NONCONTRAST CT DOSE: 788.63 mGycm HISTORY: fall, on thinners TECHNIQUE: Multiaxial CT images of the head were performed without the use of intravenous contrast. Automated exposure control was utilized for this study. A dose lowering technique was utilized adhering to the principles of ALARA. Comparison: Head CT 03/15/2017. Findings: The paranasal sinuses and mastoid air cells are clear. The calvarium and skull base are intact. Interval development of a 3.5 cm right frontal lobe intraparenchymal hematoma at the high convexity. Contains a small fluid fluid level consistent with active hemorrhage. This results in mild mass effect along the right lateral ventricle. There is ventricular extension of the hemorrhage into the right lateral ventricle. There is 2 mm of left midline shift. Surrounding vasogenic edema within the right frontal lobe. Impression: Interval development of a 3.5 cm right frontal lobe intraparenchymal hematoma with extension into the right lateral ventricle. There is 2 mm of left midline shift and surrounding vasogenic edema. Recommend follow-up to ensure complete resolution. Electronically signed by: Gregory Roth M.D. 03/22/2017 10:36 AM Dictated Date/Time: 03/22/2017 10:31 AM
--- NOTE | 2017-03-22 10:50 | DIAGNOSTIC IMAGING REPORT ---
LUMBAR SPINE CT CT DOSE: 682.34 mGycm HISTORY: fall, low back pain TECHNIQUE: Multiaxial CT images of the lumbar spine were performed and reformatted in the sagittal and coronal plane without the use of contrast. A dose lowering technique was utilized adhering to the principles of ALARA. COMPARISON: None. FINDINGS: No fractures or subluxation within the lumbar spine. Moderate disc space narrowing at L4-L5. Small endplate osteophytes seen throughout the lumbar spine. An IVC filter is noted. A few hypodense lesions within the left kidney with the largest measuring 3 cm. These likely represent cysts. Paraspinal soft tissues are unremarkable. Mild central canal narrowing within the mid to lower lumbar spine due to the degenerative changes. IMPRESSION: No fracture or subluxation within the lumbar spine. Electronically signed by: Gregory Roth M.D. 03/22/2017 10:49 AM Dictated Date/Time: 03/22/2017 10:44 AM
[2017-03-22] MEDS ORDERED: ONDANSETRON INJ 2 MG/ML 2 ML VIAL IV STA (10:59)
[2017-03-22] MEDS ORDERED: MoRPHine SULFATE 2 MG/ML CARP IV STA (10:59)
[2017-03-22 11:42] VITALS: BP 153/64; PULSE 60; O2SAT 96
== END 2017-03-22 11:43 | disposition short-term general hospital (02) ==
LOC: EDBD 08:52 → C.EDA 08:53
DX: S06.340A Traumatic hemorrhage of right cerebrum without loss of consciousness, initial encounter (principal); S70.02XA Contusion of left hip, initial encounter; M54.5 Low back pain; R53.1 Weakness; W01.0XXA Fall on same level from slipping, tripping and stumbling without subsequent striking against object, initial encounter; Y92.002 Bathroom of unspecified non-institutional (private) residence as the place of occurrence of the external cause; E11.9 Type 2 diabetes mellitus without complications; Z86.718 Personal history of other venous thrombosis and embolism; I11.9 Hypertensive heart disease without heart failure; Z86.711 Personal history of pulmonary embolism; Z95.0 Presence of cardiac pacemaker; Z80.9 Family history of malignant neoplasm, unspecified; Z83.3 Family history of diabetes mellitus; Z82.49 Family history of ischemic heart disease and other diseases of the circulatory system; Z84.1 Family history of disorders of kidney and ureter; Z79.899 Other long term (current) drug therapy

== ENCOUNTER 2017-07-08 06:19 | Emergency (ER) | payer OTHER ==
[~2017-07-08] VITALS: Ht 162.6 cm; Wt 92.9 kg
[~2017-07-08 06:19] MED LIST changes: +CEFT1INJ57 IV; +METH-1305 PO; -METH1TAB5 PO
[2017-07-08 06:24] VITALS: TEMP 36.5; Ht 162.6 cm; Wt 92.9 kg
[2017-07-08 06:55] VITALS: O2SAT 95
[2017-07-08 07:12] LABS: HEMATOCRIT 37.9 % (37-47); MEAN CELL VOLUME 112.5 fL (80-100); MEAN CORPUSCULAR HEMOGLOBIN 38.3 pg (25-34); PLATELET COUNT 330 K/uL (130-400); RED BLOOD COUNT 3.37 M/uL (4.2-5.4); WHITE BLOOD COUNT 5.89 K/uL (4.8-10.8)
--- NOTE | 2017-07-08 07:16 | DIAGNOSTIC IMAGING REPORT ---
CHEST ONE VIEW PORTABLE CLINICAL HISTORY: Fall. Right sided rib pain. COMPARISON STUDY: Chest radiograph March 22, 2017. FINDINGS: Lung volumes are normal. No pneumothorax or pleural effusion is present. A dual lead left subclavian pacemaker is unchanged in position. Moderate cardiomegaly is noted. There is pulmonary vascular congestion without overt edema. Minimal bibasilar opacities favor atelectasis. No acute right rib fractures are identified although sensitivity is diminished on the portable AP chest radiograph. IMPRESSION: 1. No pneumothorax. 2. Minimal bibasilar opacities suggestive of atelectasis. 3. Pulmonary vascular congestion without overt pulmonary edema. Electronically signed by: Chalo Posadas M.D. 07/08/2017 7:15 AM Dictated Date/Time: 07/08/2017 7:13 AM
[2017-07-08 07:20] LABS: ISTAT CREATININE 1.5 mg/dl (0.6-1.3); ISTAT HEMOGLOBIN 12.9 g/dl (12.0-16.0); ISTAT IONIZED CALCIUM 1.14 mmol/l (1.12-1.32)
--- NOTE | 2017-07-08 07:22 | EMERGENCY ROOM VISIT NOTE ---
History First contact with patient: 06:23 Chief Complaint: FALL Stated Complaint: FALL RIB PAIN History of Present Illness The patient is a 82 year old female with history of PE/DVT, CVA and intracranial hemorrhage (while on Lovenox) who presents to the Emergency Room via ambulance after falling at home. She reports falling onto a rug on her hard wood floor 45 minutes before arrival to the ER. She was using her walker, let her dog outside, turned around and fell over. She was unsure whether she felt dizzy before falling or tripped over. She remembers falling, hitting the back of her head on the ground and did not lose consciousness. She denies any chest pain, shortness of breath, palpitations before falling. She does note she has been coughing green phlegm for the past 4 days but has not sought medical attention for this. She denies any injuries after the fall but is yet to get up and walking around. No wrist pain, back pain, hip pain. She does not some mild pain on the back of her head initially but that has now resolved. Review of Systems All other systems were reviewed and otherwise negative other than that noted below Genitourinary - Female: + urinary frequency, No dysuria, No urinary incontinence, No urinary retention, No hematuria Hematologic / Lymphatic: No abnormal bleeding/bruising Integumentary: No rash, No itch Past Medical/Surgical History Medical Problems: (1) Abdominal abscess (2) Abdominal pain (3) Diabetes (4) Dizzy spells (5) DVT (deep venous thrombosis) (6) Heart disease (7) History of pulmonary embolism (8) Hypertension (9) Pacemaker (10) Syncope Surgical Problems: (1) H/O: hysterectomy (2) History of partial surgical removal of colon (3) Hx of appendectomy (4) Hx of cholecystectomy Family History Cancer Diabetes mellitus Heart disease Hypertension Kidney disease Kidney stones Social History Smoking Status: Never Smoker Alcohol Use: none Drug Use: none Marital Status: Housing Status: lives with family Occupation Status: unemployed Current/Historical Medications Scheduled Ascorbic Acid (Vitamin C), 1,000 MG PO BID Aspirin (Aspirin Ec), 81 MG PO DAILY Calcium Carbonate-Cholecalcife (Caltrate 600+D), 1 TAB PO DAILY Carbamazepine (Tegretol), 300 MG PO BID Citalopram Hydrobromide (Citalopram Hydrobromide), 10 MG PO QAM Fenofibrate (Fenofibrate), 150 MG PO DAILY Fish Oil ([place]-3), 1 CAP PO BID Folic Acid (Folvite), 400 MCG PO QAM Furosemide (Lasix), 40 MG PO DAILY Gabapentin (Neurontin), 1,200 MG PO HS Hydroxyurea (Hydrea Cap), 500 MG PO BID Hydroxyurea (Hydroxyurea), 500 MG PO UD Levothyroxine Sodium (Levothyroxine Sodium), 25 MCG PO QAM Methenamine Hippurate (Methenamine Hippurate), 1 GM PO BID Metoprolol Tartrate (Lopressor) (Lopressor), 25 MG PO BID Multiple Vitamins W/ Minerals (Preservision Areds 2), 1 CAP PO BID Niacin (Niacin), 500 MG PO QAM Pantoprazole (Protonix), 40 MG PO QAM Ropinirole (Requip), 3 MG PO HS Ropinirole HCl (Ropinirole HCl), 1 MG PO QAM Rosuvastatin Calcium (Crestor), 5 MG PO QAM Sitagliptin Phosphate (Januvia), 100 MG PO QAM Scheduled PRN Metolazone (Zaroxolyn), 2.5 MG PO DAILY PRN for fluid retention Oxycodone/Acetaminophen 5MG/325MG (Percocet 5MG/325MG), 1 TABLET PO Q4H PRN for Pain Physical Exam Vital Signs Date Time Temp Pulse Resp B/P (MAP) Pulse Ox O2 Delivery O2 Flow Rate FiO2 07/08/17 09:07 60 16 148/56 96 07/08/17 08:10 65 16 150/73 97 Room Air 07/08/17 07:07 64 07/08/17 06:55 95 Room Air 07/08/17 06:55 64 20 165/74 95 Room Air 07/08/17 06:24 36.5 67 20 192/78 97 Room Air Physical Exam General Appearance: WD/WN, no apparent distress Head: normocephalic, atraumatic Eyes: normal inspection, EOMI, + pertinent finding (left pupil constricted > right) ENT: normal ENT inspection, hearing grossly normal, TMs normal, pharynx normal Neck: supple, no adenopathy, thyroid normal, no JVD, trachea midline, + pertinent finding (lateral neck rotation > 45 degrees without pain, no cervical spinal tenderness) Respiratory/Chest: lungs clear, normal breath sounds, no respiratory distress, no accessory muscle use, + pertinent finding (chest pain on palpation of 9th rib anteriorly under breast) Cardiovascular: regular rate, rhythm, no murmur, normal peripheral pulses Abdomen / GI: normal bowel sounds, non tender (non distended but obese), soft, + pertinent finding (multiple well healed abodominal surgical scars) Back: no CVA tenderness, + pertinent finding (central lumbar pain on palpation L2/3) Extremities: no calf tenderness, normal capillary refill, + pedal edema (2+ equal b/l to knees) Neurologic/Psych: managed care analyst II-XII nml as tested, no motor/sensory deficits, alert , normal mood/affect, oriented x 3, + abnormal managed care analyst II-XII (pupils unequal (b/l cataracts noted), otherwise unremarkable) Medical Decision & Procedures ER Provider Diagnostic Interpretation: CT OF THE HEAD WITHOUT CONTRAST CLINICAL HISTORY: Fall with head injury. COMPARISON STUDY: Head CT March 22, 2017. CT DOSE: 537.48 mGy.cm TECHNIQUE: Helical axial images of the head were obtained without IV contrast. Automated exposure control was utilized for the study. A dose lowering technique was utilized adhering to the principles of ALARA. FINDINGS: No acute intracranial hemorrhage, midline shift or mass effect is present. The right frontal lobe intraparenchymal hematoma shown on exam of March 22, 2017 has resolved. There is resultant encephalomalacia. Ventricular system is unremarkable for age. Basilar cisterns are patent. There are no extra axial collections. There are no findings to suggest acute dural sinus thrombosis or acute territorial infarct. No calvarial fracture is identified. There are secretions within the nasopharynx. IMPRESSION: 1. No acute intracranial findings. 2. Interval resolution of the right frontal lobe intraparenchymal hematoma shown on CT of March 22, 2017 with mild residual encephalomalacia. 3. No calvarial fracture. Electronically signed by: Chalo Posadas M.D. 07/08/2017 7:22 AM Dictated Date/Time: 07/08/2017 7:18 AM CHEST ONE VIEW PORTABLE CLINICAL HISTORY: Fall. Right sided rib pain. COMPARISON STUDY: Chest radiograph March 22, 2017. FINDINGS: Lung volumes are normal. No pneumothorax or pleural effusion is present. A dual lead left subclavian pacemaker is unchanged in position. Moderate cardiomegaly is noted. There is pulmonary vascular congestion without overt edema. Minimal bibasilar opacities favor atelectasis. No acute right rib fractures are identified although sensitivity is diminished on the portable AP chest radiograph. IMPRESSION: 1. No pneumothorax. 2. Minimal bibasilar opacities suggestive of atelectasis. 3. Pulmonary vascular congestion without overt pulmonary edema. Electronically signed by: Chalo Posadas M.D. 07/08/2017 7:15 AM Dictated Date/Time: 07/08/2017 7:13 AM L-SPINE MIN 4 VIEWS ROUTINE CLINICAL HISTORY: L2/3 back pain s/p fall. COMPARISON: Lumbar spine CT March 22, 2017. FINDINGS: IVC filter is incidentally noted as well as several old left lower rib fractures. Alignment of the lumbar spine is anatomic. Vertebral body heights are maintained. There is no fracture. Moderate multilevel degenerative disc disease and facet arthrosis is present. IMPRESSION: 1. No acute lumbar spine fracture or subluxation. 2. Moderate multilevel degenerative disc disease and facet arthrosis. Electronically signed by: Chalo Posadas M.D. 07/08/2017 7:35 AM Dictated Date/Time: 07/08/2017 7:27 AM Laboratory Results 07/08/17 06:55 Red Blood Count 3.37, Mean Corpuscular Volume 112.5, Mean Corpuscular Hemoglobin 38.3, Mean Corpuscular Hemoglobin Concent 34.0 07/08/17 06:55 Test 07/08/17 06:55 07/08/17 07:03 07/08/17 08:00 White Blood Count 5.89 K/uL (4.8-10.8) Red Blood Count 3.37 M/uL (4.2-5.4) Hemoglobin 12.9 g/dL (12.0-16.0) Hematocrit 37.9 % (37-47) Mean Corpuscular Volume 112.5 fL (80-100) Mean Corpuscular Hemoglobin 38.3 pg (25-34) Mean Corpuscular Hemoglobin Concent 34.0 g/dl (32-36) Platelet Count 330 K/uL (130-400) Neutrophils % (Manual) 75.6 % Lymphocytes % (Manual) 7.0 % Variant Lymphocytes % (manual) 11.3 % Monocytes % (Manual) 4.3 % Eosinophils % (Manual) 0.9 % Basophils % (Manual) 0.9 % Neutrophils # (Manual) 4.45 K/uL (1.4-6.5) Total Absolute Neutrophils 4.45 K/uL (1.4-6.5) Lymphocytes # (Manual) 0.41 K/uL (1.2-3.4) Absolute Variant Lymphocytes 0.67 K/uL Total Absolute Lymphocytes 1.08 K/uL (1.2-3.4) Monocytes # (Manual) 0.25 K/uL (0.11-0.59) Eosinophils # (Manual) 0.05 K/uL (0-0.5) Basophils # (Manual) 0.05 K/uL (0-0.2) Macrocytosis PRESENT Prothrombin Time 11.1 SECONDS (9.0-12.0) Prothromb Time International Ratio 1.1 (0.9-1.1) Activated Partial Thromboplast Time 25.4 SECONDS (21.0-31.0) Partial Thromboplastin Ratio 1.0 Est Creatinine Clear Calc Drug Dose 51.1 ml/min Estimated GFR () 63.9 Estimated GFR (Non- 55.2 BUN/Creatinine Ratio 30.8 (10-20) Calcium Level 8.8 mg/dl (8.5-10.1) Total Bilirubin 0.3 mg/dl (0.2-1) Aspartate Amino Transf (AST/SGOT) 14 U/L (15-37) Alanine Aminotransferase (ALT/SGPT) 18 U/L (12-78) Alkaline Phosphatase 61 U/L (45-117) Troponin I < 0.015 ng/ml (0-0.045) Total Protein 7.9 gm/dl (6.4-8.2) Albumin 3.4 gm/dl (3.4-5.0) Globulin 4.5 gm/dl (2.5-4.0) Albumin/Globulin Ratio 0.8 (0.9-2) Bedside Hemoglobin 12.9 g/dl (12.0-16.0) Bedside Hematocrit 38 % (37-47) Bedside Sodium 140 mEq/L (135-144) Bedside Potassium 4.2 mEq/L (3.3-5.0) Bedside Chloride 103 mEq/L (101-112) Bedside Total CO2 26 mEq/l (24-31) Anion Gap 16.0 mmol/L (16-25) Bedside Blood Urea Nitrogen 31 mg/dl (7-18) Bedside Creatinine 1.5 mg/dl (0.6-1.3) Bedside Glucose (other) 108 mg/dl (70-99) Bedside Ionized Calcium (Jasmine) 1.14 mmol/l (1.12-1.32) Urine Color YELLOW Urine Appearance CLEAR (CLEAR) Urine pH 5.5 (4.5-7.5) Urine Specific [place] 1.016 (1.000-1.030) Urine Protein 1+ (NEG) Urine Glucose (UA) NEG (NEG) Urine Ketones NEG (NEG) Urine Occult Blood NEG (NEG) Urine Nitrite NEG (NEG) Urine Bilirubin NEG (NEG) Urine Urobilinogen NEG (NEG) Urine Leukocyte Esterase SMALL (NEG) Urine WBC (Auto) 5-10 /hpf (0-5) Urine RBC (Auto) 0-4 /hpf (0-4) Urine Hyaline Casts (Auto) 0 /lpf (0-5) Urine Epithelial Cells (Auto) 10-20 /lpf (0-5) Urine Bacteria (Auto) NEG (NEG) ECG Indication: syncope Rate (beats per minute): 65 Rhythm: other (atrial paced) Findings: no acute ischemic change Change: no significant change (22 Mar 2017) ED Course 06:30 Complete history and physical was performed by myself. She refused pain relief for her right sided chest pain. 06:[address] Edgar who separately performed history and examination Patient was re-examined multiple times with no change in her symptoms She was able to ambulate without dizziness or hip pain She was discharged in a stable condition and she lives with her daughter who will be able to check up on her at least twice a day for the next week. She is due to have a CT head with contrast on Monday and they will call her PCP as to whether this is still required. Medical Decision Prior records/ancillary studies reviewed. Triage Nursing notes reviewed. Additional history obtained from patient. The patient's history was concerning for fall. Differential diagnosis: Etiologies such as vasovagal event, infection, hypoglycemia, electrolyte abnormalities, cardiac sources, intracerebral event, toxicologic, neurologic, as well as others were entertained. Physical examination: Right anterior rib pain, pain over left occiput, unequal pupils ER treatment provided: She declined any medication for pain relief Diagnostics interpretation by me: ECG: no ischemic or change from previous The labs revealed elevated MCV as previously noted but was otherwise unremarkable Imaging studies: As she fell on the back of her head and given past history of intracranial hemorrhage a CT head was performed which did not show any acute bleed. Given back pain on palpation findings on exam she had a lumbar spine XR which did not show any fracture. CXR was negative for acute change. Given no change in management if she had a rib XR this was not performed but no rib fractures could be seen on CXR. This appears to be consistent with a mechanical fall with possible rib fracture on right side. By the evaluation outlined above emergent etiologies such as infection, hypoglycemia, electrolyte abnormalities, cardiac sources, intracerebral event, toxicologic, neurologic,as well as others were deemed relatively unlikely. The patient was informed about the findings as listed above. All questions were answered and she pleased with the treatment. Return instructions were outlined and the patient was discharged in stable condition. Referral: The patient was referred back to their primary care physician for follow-up in 2 to 3 days for a recheck of the current condition. Medication Reconcilliation Current Medication List: was personally reviewed by me Blood Pressure Screening Patient's blood pressure: Elevated blood pressure Blood pressure disposition: Elevated BP felt to be situational, Referred to PCP Impression Primary Impression: Fall Additional Impression: Contusion of multiple sites Departure Information Dispostion Home / Self-Care Condition GOOD Referrals Yan Randolph (PCP) Patient Instructions [facility] Additional Instructions FALL INSTRUCTIONS: Acetaminophen(Tylenol) may be used for fever or pain. Use 1000mg every eight hours as needed. Avoid using more than 3000mg in a 24 hour period. This is available over the counter. Read all the package inserts or medication information paperwork provided. If you have any questions or concerns call your primary provider, pharmacist or the ER for assistance. Rest and avoid heavy lifting until your symptoms resolve and then gradually return to full activity. A good rule of thumb is if it hurts your back to perform a certain activity, then it should be avoided until you are healthy again. Continue current medications. Return to the ER immediately for any worsening chest pain, shortness of breath, hip pain, inability to walk, or as needed. Follow up with your primary care physician within 3-5 days for a recheck of your current condition Resident Tracking Resident Involvement: Resident Care Provided Care Provided: Adult ED Problem Qualifiers Primary Impression: Fall Encounter type: initial encounter Qualified Codes: W19.XXXA - Unspecified fall, initial encounter
[2017-07-08 07:23] LABS: INR 1.1 (0.9-1.1); PROTHROMBIN TIME (PATIENT) 11.1 SECONDS (9.0-12.0)
[2017-07-08 07:24] LABS: ALT/SGPT 18 U/L (12-78); AST/SGOT 14 U/L (15-37); BLOOD UREA NITROGEN 30 mg/dl (7-18); BUN/CREATININE RATIO 30.8 (10-20); CALCIUM 8.8 mg/dl (8.5-10.1); CARBON DIOXIDE 28 mmol/L (21-32); CHLORIDE 105 mmol/L (98-107); CREATININE 0.97 mg/dl (0.60-1.20); GLUCOSE 102 mg/dl (70-99); POTASSIUM 4.1 mmol/L (3.5-5.1); SODIUM 136 mmol/L (136-145)
[2017-07-08] MEDS ORDERED: ASPI81TA28 PO (07:26)
[2017-07-08 07:28] LABS: ALB/GLOB RATIO 0.8 (0.9-2); ALKALINE PHOSPHATASE 61 U/L (45-117)
[2017-07-08 07:35] LABS: BASO ABS # 0.05 K/uL (0-0.2); BASOPHIL % 0.9 %; COMPLETE YES; EOSINOPHIL % 0.9 %; LYMPH ABS # 0.41 K/uL (1.2-3.4); NEUTROPHILS % 75.6 %; VARIANT LYM ABS # 0.67 K/uL; VARIANT LYMPHOCYTE % 11.3 %
--- NOTE | 2017-07-08 07:36 | DIAGNOSTIC IMAGING REPORT ---
L-SPINE MIN 4 VIEWS ROUTINE CLINICAL HISTORY: L2/3 back pain s/p fall. COMPARISON: Lumbar spine CT March 22, 2017. FINDINGS: IVC filter is incidentally noted as well as several old left lower rib fractures. Alignment of the lumbar spine is anatomic. Vertebral body heights are maintained. There is no fracture. Moderate multilevel degenerative disc disease and facet arthrosis is present. IMPRESSION: 1. No acute lumbar spine fracture or subluxation. 2. Moderate multilevel degenerative disc disease and facet arthrosis. Electronically signed by: Chalo Posadas M.D. 07/08/2017 7:35 AM Dictated Date/Time: 07/08/2017 7:27 AM
[2017-07-08 08:21] LABS: URINE APPEARANCE CLEAR (CLEAR); URINE BILIRUBIN NEG (NEG); URINE COLOR YELLOW; URINE NITRITE NEG (NEG); URINE PH 5.5 (4.5-7.5); URINE SPECIFIC GRAVITY 1.016 (1.000-1.030); UROBILINOGEN NEG (NEG); ZZUR CULT IF INDIC CLEAN CATCH NO
[2017-07-08 08:23] LABS: MANUAL MICROSCOPIC REQUIRED? NO; REVIEW REQ? NO
[2017-07-08 09:07] VITALS: BP 148/56; PULSE 60; O2SAT 96
--- NOTE | 2017-07-08 10:26 | EMERGENCY ROOM VISIT NOTE ---
History Report prepared by Juhi: Susan Carpenter Under the Supervision of: Eddi OrantesO. First contact with patient: 06:43 Chief Complaint: FALL Stated Complaint: FALL RIB PAIN History of Present Illness The patient is a 82 year old female who presents to the Emergency Room with complaints of a fall occurring 45 minutes prior to arrival. The patient states that she remembers falling and hitting her head, but does not know why she fell and does not know if she felt light-headed before the fall. The patient reports that she has had a cold for the last 4 days and has been coughing green sputum. The patient also reports having right rib pain when she takes a deep breath and also reports having right-sided pain in the back of her head. The patient states that she has been having increased frequency of urination. The patient denies fevers, chills, neck pain, and hip pain. The patient reports a history of a previous hemorrhage and a pulmonary embolism, which she was on blood thinners previously for. She reports that she only takes an Aspirin now. Source of History: patient Onset: 45 minutes prior to arrival Position: other (global) Quality: other (fall) Associated Symptoms: + cough (green sputum), No fevers, No chills, No neck pain, No chest pain, No SOB Note: additional symptoms: right-sided pain in back of head, right rib pain denies: hip pain Review of Systems See HPI for pertinent positives & negatives. A total of 10 systems reviewed and were otherwise negative. Past Medical & Surgical Medical Problems: (1) Abdominal abscess (2) Abdominal pain (3) Diabetes (4) Dizzy spells (5) DVT (deep venous thrombosis) (6) Heart disease (7) History of pulmonary embolism (8) Hypertension (9) Pacemaker (10) Syncope Surgical Problems: (1) H/O: hysterectomy (2) History of partial surgical removal of colon (3) Hx of appendectomy (4) Hx of cholecystectomy Family History Cancer Diabetes mellitus Heart disease Hypertension Kidney disease Kidney stones Social History Smoking Status: Never Smoker Alcohol Use: none Drug Use: none Marital Status: Housing Status: lives with family Occupation Status: unemployed Current/Historical Medications Scheduled Ascorbic Acid (Vitamin C), 1,000 MG PO BID Aspirin (Aspirin Ec), 81 MG PO DAILY Calcium Carbonate-Cholecalcife (Caltrate 600+D), 1 TAB PO DAILY Carbamazepine (Tegretol), 300 MG PO BID Citalopram Hydrobromide (Citalopram Hydrobromide), 10 MG PO QAM Fenofibrate (Fenofibrate), 150 MG PO DAILY Fish Oil ([place]-3), 1 CAP PO BID Folic Acid (Folvite), 400 MCG PO QAM Furosemide (Lasix), 40 MG PO DAILY Gabapentin (Neurontin), 1,200 MG PO HS Hydroxyurea (Hydrea Cap), 500 MG PO BID Hydroxyurea (Hydroxyurea), 500 MG PO UD Levothyroxine Sodium (Levothyroxine Sodium), 25 MCG PO QAM Methenamine Hippurate (Methenamine Hippurate), 1 GM PO BID Metoprolol Tartrate (Lopressor) (Lopressor), 25 MG PO BID Multiple Vitamins W/ Minerals (Preservision Areds 2), 1 CAP PO BID Niacin (Niacin), 500 MG PO QAM Pantoprazole (Protonix), 40 MG PO QAM Ropinirole (Requip), 3 MG PO HS Ropinirole HCl (Ropinirole HCl), 1 MG PO QAM Rosuvastatin Calcium (Crestor), 5 MG PO QAM Sitagliptin Phosphate (Januvia), 100 MG PO QAM Scheduled PRN Metolazone (Zaroxolyn), 2.5 MG PO DAILY PRN for fluid retention Oxycodone/Acetaminophen 5MG/325MG (Percocet 5MG/325MG), 1 TABLET PO Q4H PRN for Pain Allergies Coded Allergies: Butorphanol (Verified Allergy, Intermediate, HIVES, 07/08/17) Chlorzoxazone (Verified Allergy, Intermediate, HIVES, 07/08/17) Erythromycin (Verified Allergy, Intermediate, HIVES, 07/08/17) Naloxone (Verified Allergy, Intermediate, HIVES, 07/08/17) Nitrofurantoin (Verified Allergy, Intermediate, HIVES, 07/08/17) Pentazocine (Verified Allergy, Intermediate, HIVES, 07/08/17) Diazepam (Verified Adverse Reaction, Unknown, FELLS LIKE CRAWLING UP A WALL, 07/08/17) Physical Exam Vital Signs Date Time Temp Pulse Resp B/P (MAP) Pulse Ox O2 Delivery O2 Flow Rate FiO2 07/08/17 09:07 60 16 148/56 96 07/08/17 08:10 65 16 150/73 97 Room Air 07/08/17 07:07 64 07/08/17 06:55 95 Room Air 07/08/17 06:55 64 20 165/74 95 Room Air 07/08/17 06:24 36.5 67 20 192/78 97 Room Air Physical Exam CONSTITUTIONAL/VITAL SIGNS: Reviewed / noted above. GENERAL: Non-toxic in appearance. INTEGUMENTARY: Warm, dry, and [place]. HEAD: Normocephalic. EYES: without scleral icterus or trauma. ENT/OROPHARYNX: clear and moist. LYMPHADENOPATHY/NECK: Is supple without lymphadenopathy or meningismus. RESPIRATORY: Lungs clear and equal. CARDIOVASCULAR: Regular rate and rhythm. CHEST: Tenderness to palpation of right anterior lateral chest wall. GI/ABDOMEN: Soft and nontender. No organomegaly or pulsatile mass. No rebound or guarding. Normal bowel sounds. EXTREMITIES: Warm and well perfused. BACK: No CVA tenderness. NEUROLOGICAL: Intact without focal deficits. PSYCHIATRIC: normal affect. MUSCULOSKELETAL: Normally developed with good muscle tone. Medical Decision & Procedures ER Provider Diagnostic Interpretation: Radiology results as stated below per my review and radiologist interpretation: CT OF THE HEAD WITHOUT CONTRAST CLINICAL HISTORY: Fall with head injury. COMPARISON STUDY: Head CT March 22, 2017. CT DOSE: 537.48 mGy.cm TECHNIQUE: Helical axial images of the head were obtained without IV contrast. Automated exposure control was utilized for the study. A dose lowering technique was utilized adhering to the principles of ALARA. FINDINGS: No acute intracranial hemorrhage, midline shift or mass effect is present. The right frontal lobe intraparenchymal hematoma shown on exam of March 22, 2017 has resolved. There is resultant encephalomalacia. Ventricular system is unremarkable for age. Basilar cisterns are patent. There are no extra axial collections. There are no findings to suggest acute dural sinus thrombosis or acute territorial infarct. No calvarial fracture is identified. There are secretions within the nasopharynx. IMPRESSION: 1. No acute intracranial findings. 2. Interval resolution of the right frontal lobe intraparenchymal hematoma shown on CT of March 22, 2017 with mild residual encephalomalacia. 3. No calvarial fracture. Electronically signed by: Chalo Posadas M.D. 07/08/2017 7:22 AM Dictated Date/Time: 07/08/2017 7:18 AM CHEST ONE VIEW PORTABLE CLINICAL HISTORY: Fall. Right sided rib pain. COMPARISON STUDY: Chest radiograph March 22, 2017. FINDINGS: Lung volumes are normal. No pneumothorax or pleural effusion is present. A dual lead left subclavian pacemaker is unchanged in position. Moderate cardiomegaly is noted. There is pulmonary vascular congestion without overt edema. Minimal bibasilar opacities favor atelectasis. No acute right rib fractures are identified although sensitivity is diminished on the portable AP chest radiograph. IMPRESSION: 1. No pneumothorax. 2. Minimal bibasilar opacities suggestive of atelectasis. 3. Pulmonary vascular congestion without overt pulmonary edema. Electronically signed by: Chalo Posadas M.D. 07/08/2017 7:15 AM Dictated Date/Time: 07/08/2017 7:13 AM L-SPINE MIN 4 VIEWS ROUTINE CLINICAL HISTORY: L2/3 back pain s/p fall. COMPARISON: Lumbar spine CT March 22, 2017. FINDINGS: IVC filter is incidentally noted as well as several old left lower rib fractures. Alignment of the lumbar spine is anatomic. Vertebral body heights are maintained. There is no fracture. Moderate multilevel degenerative disc disease and facet arthrosis is present. IMPRESSION: 1. No acute lumbar spine fracture or subluxation. 2. Moderate multilevel degenerative disc disease and facet arthrosis. Electronically signed by: Chalo Posadas M.D. 07/08/2017 7:35 AM Dictated Date/Time: 07/08/2017 7:27 AM Laboratory Results 07/08/17 06:55 Red Blood Count 3.37, Mean Corpuscular Volume 112.5, Mean Corpuscular Hemoglobin 38.3, Mean Corpuscular Hemoglobin Concent 34.0 07/08/17 06:55 Test 07/08/17 06:55 07/08/17 07:03 07/08/17 08:00 White Blood Count 5.89 K/uL (4.8-10.8) Red Blood Count 3.37 M/uL (4.2-5.4) Hemoglobin 12.9 g/dL (12.0-16.0) Hematocrit 37.9 % (37-47) Mean Corpuscular Volume 112.5 fL (80-100) Mean Corpuscular Hemoglobin 38.3 pg (25-34) Mean Corpuscular Hemoglobin Concent 34.0 g/dl (32-36) Platelet Count 330 K/uL (130-400) Neutrophils % (Manual) 75.6 % Lymphocytes % (Manual) 7.0 % Variant Lymphocytes % (manual) 11.3 % Monocytes % (Manual) 4.3 % Eosinophils % (Manual) 0.9 % Basophils % (Manual) 0.9 % Neutrophils # (Manual) 4.45 K/uL (1.4-6.5) Total Absolute Neutrophils 4.45 K/uL (1.4-6.5) Lymphocytes # (Manual) 0.41 K/uL (1.2-3.4) Absolute Variant Lymphocytes 0.67 K/uL Total Absolute Lymphocytes 1.08 K/uL (1.2-3.4) Monocytes # (Manual) 0.25 K/uL (0.11-0.59) Eosinophils # (Manual) 0.05 K/uL (0-0.5) Basophils # (Manual) 0.05 K/uL (0-0.2) Macrocytosis PRESENT Prothrombin Time 11.1 SECONDS (9.0-12.0) Prothromb Time International Ratio 1.1 (0.9-1.1) Activated Partial Thromboplast Time 25.4 SECONDS (21.0-31.0) Partial Thromboplastin Ratio 1.0 Est Creatinine Clear Calc Drug Dose 51.1 ml/min Estimated GFR () 63.9 Estimated GFR (Non- 55.2 BUN/Creatinine Ratio 30.8 (10-20) Calcium Level 8.8 mg/dl (8.5-10.1) Total Bilirubin 0.3 mg/dl (0.2-1) Aspartate Amino Transf (AST/SGOT) 14 U/L (15-37) Alanine Aminotransferase (ALT/SGPT) 18 U/L (12-78) Alkaline Phosphatase 61 U/L (45-117) Troponin I < 0.015 ng/ml (0-0.045) Total Protein 7.9 gm/dl (6.4-8.2) Albumin 3.4 gm/dl (3.4-5.0) Globulin 4.5 gm/dl (2.5-4.0) Albumin/Globulin Ratio 0.8 (0.9-2) Bedside Hemoglobin 12.9 g/dl (12.0-16.0) Bedside Hematocrit 38 % (37-47) Bedside Sodium 140 mEq/L (135-144) Bedside Potassium 4.2 mEq/L (3.3-5.0) Bedside Chloride 103 mEq/L (101-112) Bedside Total CO2 26 mEq/l (24-31) Anion Gap 16.0 mmol/L (16-25) Bedside Blood Urea Nitrogen 31 mg/dl (7-18) Bedside Creatinine 1.5 mg/dl (0.6-1.3) Bedside Glucose (other) 108 mg/dl (70-99) Bedside Ionized Calcium (Jasmine) 1.14 mmol/l (1.12-1.32) Urine Color YELLOW Urine Appearance CLEAR (CLEAR) Urine pH 5.5 (4.5-7.5) Urine Specific [place] 1.016 (1.000-1.030) Urine Protein 1+ (NEG) Urine Glucose (UA) NEG (NEG) Urine Ketones NEG (NEG) Urine Occult Blood NEG (NEG) Urine Nitrite NEG (NEG) Urine Bilirubin NEG (NEG) Urine Urobilinogen NEG (NEG) Urine Leukocyte Esterase SMALL (NEG) Urine WBC (Auto) 5-10 /hpf (0-5) Urine RBC (Auto) 0-4 /hpf (0-4) Urine Hyaline Casts (Auto) 0 /lpf (0-5) Urine Epithelial Cells (Auto) 10-20 /lpf (0-5) Urine Bacteria (Auto) NEG (NEG) Laboratory results as stated above per my review. ECG Indication: weakness Rate (beats per minute): 65 Rhythm: sinus rhythm Findings: no acute ischemic change, no ectopy ED Course 0655: Previous medical records were reviewed. The patient was evaluated in room B2. A complete history and physical examination was performed. 0835: On reevaluation, the patient is resting. I discussed the results and findings with the patient. She verbalized agreement of the treatment plan. She was discharged home. Medical Decision Differential includes close head injury, intracranial bleed, facial trauma, cervical spine trauma, chest and thoracic trauma, abdominal and intra-abdominal trauma, spine neurologic trauma, extremity trauma. This is an 82-year-old female who presents to the ED with a chief complaint of a fall. The patient reports falling about 45 minutes prior to arrival. She states that she lost her balance. She believes she hit her head and is complaining also of right anterolateral rib pain. The patient has no other significant complaints. Her exam reveals some tenderness to the right anterolateral ribs. There is no crepitus. Lungs are clear. She has no discomfort in the hips or lower extremities with range of motion. Initial blood pressure was elevated at 192/78. Second blood pressure was 165/74. The patient did not want any pain medication. A CT scan of her head was negative for acute disease as well as a chest x-ray. X-rays of lumbar spine were negative for acute injury. CBC and complete metabolic panel as well as troponin were unremarkable. Urine did not show obvious infection. The patient was told the results. She is felt to be stable for discharge and outpatient follow-up. Medication Reconcilliation Current Medication List: was personally reviewed by me Blood Pressure Screening Patient's blood pressure: Elevated blood pressure Blood pressure disposition: Referred to PCP Impression Primary Impression: Fall Scribe Attestation The scribe's documentation has been prepared under my direction and personally reviewed by me in its entirety. I confirm that the note above accurately reflects all work, treatment, procedures, and medical decision making performed by me. Departure Information Dispostion Home / Self-Care Referrals Yan Randolph (PCP) Forms HOME CARE DOCUMENTATION FORM, IMPORTANT VISIT INFORMATION Patient Instructions My [facility]
== END 2017-07-08 09:12 | disposition home or self-care (01) ==
LOC: EDUNIT# 06:19 → EDBD 06:19 → C.EDB 06:21
DX: T14.8XXA Other injury of unspecified body region, initial encounter (principal); S09.90XA Unspecified injury of head, initial encounter; R07.81 Pleurodynia; W19.XXXA Unspecified fall, initial encounter; W22.8XXA Striking against or struck by other objects, initial encounter; E11.9 Type 2 diabetes mellitus without complications; I10 Essential (primary) hypertension; Z95.0 Presence of cardiac pacemaker; Z86.73 Personal history of transient ischemic attack (TIA), and cerebral infarction without residual deficits; Z86.711 Personal history of pulmonary embolism; Z86.718 Personal history of other venous thrombosis and embolism; Z90.710 Acquired absence of both cervix and uterus; Z90.49 Acquired absence of other specified parts of digestive tract; Z90.89 Acquired absence of other organs; Z83.3 Family history of diabetes mellitus; Z82.49 Family history of ischemic heart disease and other diseases of the circulatory system; Z84.1 Family history of disorders of kidney and ureter; Z79.01 Long term (current) use of anticoagulants; Z79.82 Long term (current) use of aspirin; Z79.899 Other long term (current) drug therapy

== ENCOUNTER 2017-08-30 16:35 | Emergency (ER) | payer OTHER ==
[~2017-08-30] VITALS: Ht 162.6 cm; Wt 96.0 kg
[~2017-08-30 16:35] MED LIST changes: +ASPI81TA28 PO; -CEFT1INJ57 IV; -FOLI1TAB7 PO; +FOLI1TAB8 PO
[2017-08-30 16:43] VITALS: TEMP 37.2
--- NOTE | 2017-08-30 18:44 | EMERGENCY ROOM VISIT NOTE ---
History Report prepared by Ashtynibportia: Dolores Galeas Under the Supervision of: Dr. Jorge Menchaca M.D. First contact with patient: 18:34 Chief Complaint: FLU LIKE SX Stated Complaint: WEAK, DIZZY, COUGH, ACHE ALL OVER History of Present Illness The patient is an 82 year old white female with a past medical history of DM, hypertension and CHF on Lasix who presents to the ED with a cc of persistent swelling that started earlier today. Positive 10 pound weight gain in the past 5 days, non-productive cough, chest pain, and shortness of breath with movement. Negative recent falls or injuries, nausea, vomiting or diarrhea. She states her "legs, head and arms hurt" and complains of dizziness with movement. She denies eating any increased salt recently. She did get a flu shot this year. She notes her ankles are extremely swollen, but she can still feel normal sensation. The patient is a non-smoker. Source of History: patient Onset: earlier today Position: other (global) Timing: other (persistent) Associated Symptoms: + cough, + chest pain, + SOB, No nausea, No vomiting, No diarrhea Review of Systems See HPI for pertinent positives and negatives. A total of ten systems were reviewed and were otherwise negative. Past Medical & Surgical Medical Problems: (1) Abdominal abscess (2) Abdominal pain (3) Diabetes (4) Dizzy spells (5) DVT (deep venous thrombosis) (6) Heart disease (7) History of pulmonary embolism (8) Hypertension (9) Pacemaker (10) Syncope Surgical Problems: (1) H/O: hysterectomy (2) History of partial surgical removal of colon (3) Hx of appendectomy (4) Hx of cholecystectomy Family History Cancer Diabetes mellitus Heart disease Hypertension Kidney disease Kidney stones Social History Smoking Status: Never Smoker Alcohol Use: none Drug Use: none Marital Status: Housing Status: lives with family Occupation Status: unemployed Current/Historical Medications Scheduled Ascorbic Acid (Vitamin C), 1,000 MG PO BID Aspirin (Aspirin Ec), 81 MG PO DAILY Calcium Carbonate-Cholecalcife (Caltrate 600+D), 1 TAB PO DAILY Carbamazepine (Tegretol), 300 MG PO BID Citalopram Hydrobromide (Citalopram Hydrobromide), 10 MG PO QAM Fenofibrate (Fenofibrate), 150 MG PO DAILY Fish Oil (Wells-3), 1 CAP PO BID Folic Acid (Folvite), 400 MCG PO QAM Furosemide (Lasix), 40 MG PO DAILY Gabapentin (Neurontin), 1,200 MG PO HS Hydroxyurea (Hydrea Cap), 500 MG PO BID Hydroxyurea (Hydroxyurea), 500 MG PO UD Levothyroxine Sodium (Levothyroxine Sodium), 25 MCG PO QAM Methenamine Hippurate (Methenamine Hippurate), 1 GM PO BID Metoprolol Tartrate (Lopressor) (Lopressor), 25 MG PO BID Multiple Vitamins W/ Minerals (Preservision Areds 2), 1 CAP PO BID Niacin (Niacin), 500 MG PO QAM Pantoprazole (Protonix), 40 MG PO QAM Ropinirole (Requip), 3 MG PO HS Ropinirole HCl (Ropinirole HCl), 1 MG PO QAM Rosuvastatin Calcium (Crestor), 5 MG PO QAM Sitagliptin Phosphate (Januvia), 100 MG PO QAM Scheduled PRN Metolazone (Zaroxolyn), 2.5 MG PO DAILY PRN for fluid retention Oxycodone/Acetaminophen 5MG/325MG (Percocet 5MG/325MG), 1 TABLET PO Q4H PRN for Pain Allergies Coded Allergies: Butorphanol (Verified Allergy, Intermediate, HIVES, 07/08/17) Chlorzoxazone (Verified Allergy, Intermediate, HIVES, 07/08/17) Erythromycin (Verified Allergy, Intermediate, HIVES, 07/08/17) Naloxone (Verified Allergy, Intermediate, HIVES, 07/08/17) Nitrofurantoin (Verified Allergy, Intermediate, HIVES, 07/08/17) Pentazocine (Verified Allergy, Intermediate, HIVES, 07/08/17) Diazepam (Verified Adverse Reaction, Unknown, FELLS LIKE CRAWLING UP A WALL, 07/08/17) Physical Exam Vital Signs Date Time Temp Pulse Resp B/P (MAP) Pulse Ox O2 Delivery O2 Flow Rate FiO2 08/30/17 21:26 62 18 159/67 97 Room Air 08/30/17 20:37 64 18 167/71 97 Room Air 08/30/17 19:25 60 08/30/17 19:10 60 18 182/61 96 Room Air 08/30/17 19:03 96 Room Air 08/30/17 16:43 37.2 70 17 150/73 96 Room Air Physical Exam GENERAL: Awake, alert, well-appearing, NAD HENT: Normocephalic, atraumatic. EYES: Normal conjunctiva. Sclera non-icteric. NECK: Supple. No nuchal rigidity. FROM. RESPIRATORY: CTAB, no rhonchi, wheezing, crackles CARDIAC: RRR, no MRG, device in left chest ABDOMEN: Soft, NTND, BS+ MSK: No chest wall TTP, 1-2+ pretibial and pedal edema NEURO: GCS 15, CN 2-12 intact, moves all 4s on command SKIN: No rash or jaundice noted. Medical Decision & Procedures ER Provider Diagnostic Interpretation: Radiology results as stated below per my review and radiologist interpretation: CHEST ONE VIEW PORTABLE HISTORY: EVALUATE RESPIRATORY DISTRESS.DYSPNEA COMPARISON: Chest 07/08/2017. FINDINGS: The lungs are clear. The heart remains borderline enlarged. No pleural effusions. No pneumothorax. Left-sided dual-chamber pacemaker. IMPRESSION: No significant change compared to the prior study. No acute process. Electronically signed by: Gregory Roth M.D. 08/30/2017 7:10 PM Laboratory Results 08/30/17 19:23 Red Blood Count 3.12, Mean Corpuscular Volume 108.0, Mean Corpuscular Hemoglobin 39.1, Mean Corpuscular Hemoglobin Concent 36.2, Mean Platelet Volume 9.6, Neutrophils (%) (Auto) 78.4, Lymphocytes (%) (Auto) 13.9, Monocytes (%) ( Auto) 5.7, Eosinophils (%) (Auto) 1.0, Basophils (%) (Auto) 0.2, Neutrophils # ( Auto) 4.70, Lymphocytes # (Auto) 0.83, Monocytes # (Auto) 0.34, Eosinophils # ( Auto) 0.06, Basophils # (Auto) 0.01 08/30/17 19:23 Test 08/30/17 19:01 08/30/17 19:23 Urine Color YELLOW Urine Appearance CLEAR (CLEAR) Urine pH 7.0 (4.5-7.5) Urine Specific [place] 1.012 (1.000-1.030) Urine Protein 1+ (NEG) Urine Glucose (UA) NEG (NEG) Urine Ketones NEG (NEG) Urine Occult Blood 1+ (NEG) Urine Nitrite NEG (NEG) Urine Bilirubin NEG (NEG) Urine Urobilinogen NEG (NEG) Urine Leukocyte Esterase SMALL (NEG) Urine WBC (Auto) 1-5 /hpf (0-5) Urine RBC (Auto) 10-30 /hpf (0-4) Urine Hyaline Casts (Auto) 0 /lpf (0-5) Urine Epithelial Cells (Auto) 20-30 /lpf (0-5) Urine Bacteria (Auto) NEG (NEG) White Blood Count 5.99 K/uL (4.8-10.8) Red Blood Count 3.12 M/uL (4.2-5.4) Hemoglobin 12.2 g/dL (12.0-16.0) Hematocrit 33.7 % (37-47) Mean Corpuscular Volume 108.0 fL (80-100) Mean Corpuscular Hemoglobin 39.1 pg (25-34) Mean Corpuscular Hemoglobin Concent 36.2 g/dl (32-36) Platelet Count 333 K/uL (130-400) Mean Platelet Volume 9.6 fL (7.4-10.4) Neutrophils (%) (Auto) 78.4 % Lymphocytes (%) (Auto) 13.9 % Monocytes (%) (Auto) 5.7 % Eosinophils (%) (Auto) 1.0 % Basophils (%) (Auto) 0.2 % Neutrophils # (Auto) 4.70 K/uL (1.4-6.5) Lymphocytes # (Auto) 0.83 K/uL (1.2-3.4) Monocytes # (Auto) 0.34 K/uL (0.11-0.59) Eosinophils # (Auto) 0.06 K/uL (0-0.5) Basophils # (Auto) 0.01 K/uL (0-0.2) RDW Standard Deviation 55.1 fL (36.4-46.3) RDW Coefficient of Variation 14.1 % (11.5-14.5) Immature Granulocyte % (Auto) 0.8 % Immature Granulocyte # (Auto) 0.05 K/uL (0.00-0.02) Prothrombin Time 11.1 SECONDS (9.0-12.0) Prothromb Time International Ratio 1.1 (0.9-1.1) Activated Partial Thromboplast Time 25.9 SECONDS (21.0-31.0) Partial Thromboplastin Ratio 1.0 Anion Gap 7.0 mmol/L (3-11) Est Creatinine Clear Calc Drug Dose 55.5 ml/min Estimated GFR () 69.1 Estimated GFR (Non- 59.6 BUN/Creatinine Ratio 24.2 (10-20) Calcium Level 8.7 mg/dl (8.5-10.1) Phosphorus Level 2.9 mg/dl (2.5-4.9) Magnesium Level 1.7 mg/dl (1.8-2.4) Total Bilirubin 0.5 mg/dl (0.2-1) Aspartate Amino Transf (AST/SGOT) 10 U/L (15-37) Alanine Aminotransferase (ALT/SGPT) 19 U/L (12-78) Alkaline Phosphatase 50 U/L (45-117) Troponin I < 0.015 ng/ml (0-0.045) Pro-B-Type Natriuretic Peptide 1601 pg/ml (0-1800) Total Protein 7.7 gm/dl (6.4-8.2) Albumin 3.5 gm/dl (3.4-5.0) Globulin 4.2 gm/dl (2.5-4.0) Albumin/Globulin Ratio 0.8 (0.9-2) Laboratory results reviewed by me Medications Administered Medications (Trade) Dose Ordered Sig/Tone Route Start Time Stop Time Status Last Admin Dose Admin Furosemide (Lasix Inj) 40 mg NOW STAT IV 08/30/17 20:21 08/30/17 20:22 DC 08/30/17 20:46 40 MG ECG Indication: weakness Rate (beats per minute): 62 Rhythm: other (AV paced) Findings: T-wave inversion (Inferior), other (normal axis, no other STS or TWI ) Change: no significant change (No change from EKG on 07/06/17) Change: Patient's electrocardiogram interpreted by me. ED Course 1836: The patient was evaluated in room C5. A complete history and physical exam was performed. 2114: I reevaluated the patient. She is feeling well and ready to go home. I discussed her results and discharge instructions and she verbalized complete understanding and agreement. Medical Decision The patient is an 82 year old white female with a past medical history of DM, hypertension and CHF on Lasix who presents to the ED with a cc of persistent swelling that started earlier today. Triage Nursing notes reviewed. Differential diagnosis: Etiologies such as infections, reactive airway disease, pneumonia, pneumothorax , COPD, CHF, cardiac ischemia, pulmonary embolism, musculoskeletal, gastrointestinal, as well as others were entertained. Patient was seen and evaluated the bedside. Patient has complained of some mild chest pains as well as some shortness of breath. Patient did complain of some mild dyspnea on exertion. Patient chest pain was described as burning left -sided nonradiating. Patient denied any diaphoresis or nausea or vomiting. Patient did have a prior history of DVT and PE but was off" given a intraparenchymal hemorrhage. Patient did note that she did have some weight gain approximately 8-9 pounds since last being weight. She also noted that she had some fluid in the legs. Patient did have blood work that was completed along with EKG, BNP, troponin, chest x-ray. Patient's chest x-ray did not show anything acute. Patient's BNP was on the high side of normal. Patient had a negative troponin. Patient's EKG was fairly unchanged and nonischemic. Given the patient's complaint of chest pain and EKG and negative troponin believe this less likely to be ACS. We did discuss the possibility PE however again I believe this is less likely and that she may have an element of some heart failure. I believe this is stable in nature. I imagine this as well as her Lasix use is contributing to her hyponatremia. Patient was given a and IV dose of Lasix here in the emergency department. The patient appears stable for outpatient follow-up and treatment as the patient is not requiring oxygen is not Neck and is not tachycardic. Of note she is also not very hypertensive to where she needs acute blood pressure relief to help with any sort of heart failure. Patient was able to ambulate as well using her walker which is her baseline. Patient does live with her daughter. I believe that if she is safe for home at this time. I did discuss the patient's sodium was low and that they should obtain a follow-up appointment for Monday to see their primary care physician in addition for a recheck of her sodium. Patient was deemed suitable for outpatient follow-up and treatment at this time. Patient was given strict follow-up, discharge, and return precautions. All questions were answered. Patient was deemed suitable for outpatient follow-up at this time. Patient agreed with the plan of care and was safely discharged home. The chart was completed utilizing [employer] Speech voice recognition software. Grammatical errors, random word insertions, pronoun errors, and incomplete sentences are an occasional consequence of this system due to software limitations, ambient noise, and hardware issues. Any formal questions or concerns about the content, text, or information contained within the body of this dictation should be directly addressed to the physician for clarification. Medication Reconcilliation Current Medication List: was personally reviewed by me Blood Pressure Screening Patient's blood pressure: Elevated blood pressure Blood pressure disposition: Referred to PCP Impression Primary Impression: CHF (congestive heart failure) Additional Impression: Hyponatremia Scribe Attestation The scribe's documentation has been prepared under my direction and personally reviewed by me in its entirety. I confirm that the note above accurately reflects all work, treatment, procedures, and medical decision making performed by me. Departure Information Dispostion Home / Self-Care Referrals No Doctor, Assigned (PCP) Patient Instructions ED CHF General, ED Hyponatremia, Hyponatremia Ct, [facility] Additional Instructions Please return to the emergency department if you have worsening or recurrent symptoms not amenable to at-home treatment. Please call for a follow-up appointment with her primary care physician. Please take your medications as prescribed. If you have other concerns and/or complaints please feel free to also call your primary care physician's office or return the ED for further evaluation, management, and treatment. Please obtain a follow-up appointment with her PCP for Monday. Please discuss your Lasix in addition to the low sodium. Please take one extra dose of her Lasix tomorrow. If you do have any worsening symptoms or unable to use her walker, have worsening shortness of breath and please return for further evaluation. Take your medications as prescribed. You have been examined and treated today on an emergency basis only. This is not a substitute for, or an effort to provide, complete comprehensive medical care. It is impossible to recognize and treat all injuries or illnesses in a single emergency department visit. It is therefore important that you follow up closely with [facility], your PCP, and/or your specialist(s). Call as soon as possible for an appointment. Thank you for your time and consideration. I look forward to speaking with you again soon. Please don't hesitate to call us if you have any questions. Problem Qualifiers Primary Impression: CHF (congestive heart failure) Congestive heart failure type: unspecified Congestive heart failure chronicity: unspecified Qualified Codes: I50.9 - Heart failure, unspecified
[2017-08-30 19:03] VITALS: O2SAT 96
[2017-08-30 19:04] VITALS: Ht 162.6 cm; Wt 96.0 kg
--- NOTE | 2017-08-30 19:11 | DIAGNOSTIC IMAGING REPORT ---
CHEST ONE VIEW PORTABLE HISTORY: EVALUATE RESPIRATORY DISTRESS.DYSPNEA COMPARISON: Chest 07/08/2017. FINDINGS: The lungs are clear. The heart remains borderline enlarged. No pleural effusions. No pneumothorax. Left-sided dual-chamber pacemaker. IMPRESSION: No significant change compared to the prior study. No acute process. Electronically signed by: Gregory Roth M.D. 08/30/2017 7:10 PM Dictated Date/Time: 08/30/2017 7:08 PM
[2017-08-30 19:51] LABS: BASO % 0.2 %; BASO ABS # 0.01 K/uL (0-0.2); EOS ABS # 0.06 K/uL (0-0.5); HEMATOCRIT 33.7 % (37-47); HEMOGLOBIN 12.2 g/dL (12.0-16.0); IG# 0.05 K/uL (0.00-0.02); LYMPH % 13.9 %; LYMPH ABS # 0.83 K/uL (1.2-3.4); MEAN CORPUSCULAR HEMOGLOBIN 39.1 pg (25-34); MEAN CORPUSCULAR HGB CONC 36.2 g/dl (32-36); MEAN PLATELET VOLUME 9.6 fL (7.4-10.4); MONO % 5.7 %; MONO ABS # 0.34 K/uL (0.11-0.59); NEUT % 78.4 %; PLATELET COUNT 333 K/uL (130-400); RED CELL DISTRIBUTION WIDTH CV 14.1 % (11.5-14.5); RED CELL DISTRIBUTION WIDTH SD 55.1 fL (36.4-46.3); WHITE BLOOD COUNT 5.99 K/uL (4.8-10.8)
[2017-08-30 20:06] LABS: INR 1.1 (0.9-1.1); PTT PATIENT 25.9 SECONDS (21.0-31.0)
[2017-08-30 20:11] LABS: ALBUMIN 3.5 gm/dl (3.4-5.0); ALT/SGPT 19 U/L (12-78); AST/SGOT 10 U/L (15-37); BLOOD UREA NITROGEN 22 mg/dl (7-18); CALCIUM 8.7 mg/dl (8.5-10.1); CARBON DIOXIDE 28 mmol/L (21-32); CREATININE 0.91 mg/dl (0.60-1.20); GLUCOSE 94 mg/dl (70-99); POTASSIUM 4.2 mmol/L (3.5-5.1); SODIUM 124 mmol/L (136-145)
[2017-08-30 20:16] LABS: ALKALINE PHOSPHATASE 50 U/L (45-117); PHOSPHORUS 2.9 mg/dl (2.5-4.9); TOTAL PROTEIN 7.7 gm/dl (6.4-8.2)
[2017-08-30] MEDS ORDERED: FUROSEMIDE 40 MG/4 ML VIAL IV STA (20:21)
[2017-08-30 21:26] VITALS: BP 159/67; PULSE 62; O2SAT 97
== END 2017-08-30 22:02 | disposition home or self-care (01) ==
LOC: C.EDB 16:36 → C.EDC 22:02
DX: I50.9 Heart failure, unspecified (principal); E87.1 Hypo-osmolality and hyponatremia; E11.9 Type 2 diabetes mellitus without complications; I51.9 Heart disease, unspecified; I10 Essential (primary) hypertension; Z95.0 Presence of cardiac pacemaker; Z83.3 Family history of diabetes mellitus; Z82.49 Family history of ischemic heart disease and other diseases of the circulatory system; Z79.82 Long term (current) use of aspirin

== ENCOUNTER 2020-02-10 16:30 | Inpatient (IN) ==
--- NOTE | 2020-02-10 21:35 | History & Physical Report ---
Date of Service February 10, 2020 Assessment & Plan (1) UTI (urinary tract infection): Patient is an 84 year old female medically complex with PMHx DM2, HTN, Hypothyroidism, DVT, Diastolic HF, Intraparenchymal hemorrhage, and PE, who is a transfer from [facility] for UTI symptoms and recent fall. Weakness and Fall, likely 2/2 UTI -Follow up with Urine Culture/Sensitivities from [facility] -Continue Rocephin 1g IV daily -C-Spine CT neg, Head CT neg for acute process -Elevated proBNP 1023, does note appear clinically in HF, KANDY ordered for AM -Measure I/O -PT/OT ordered Scabies -Treated one time 2 weeks ago -Another treatment scheduled Ivermectin 12mg for 02/11/20 -Contact precautions Candidiasis -Continue Diflucan 100mg QD x 4 days Seizure Disorder -Continue Carbamazepine 300mg BID -Carbamazepine level pending -Continue Gabapentin 600mg BID Hypertension -Continue home metoprolol, furosemide, lisinopril DM2 -SSI -HgbA1C pending Hypothyroidism -Continue Synthroid -TSH level in AM Restless Leg Syndrome -Continue ropinirole Dispo: Med/Surg FEN: HH and DM2 diet DVT: Heparin Code: DNR/DNI (2) RLS (restless legs syndrome): (3) Candidiasis, intertriginous: (4) Weakness: (5) Hypothyroidism: (6) HTN (hypertension): (7) Diabetes mellitus, type II: (8) Seizure disorder: (9) Scabies: Admission and Anticipated Discharge Date Admission Date: February 10, 2020 History of Present Illness Chief Complaint: UTi Primary Care Provider: Tanja Francis MD Patient is an 84 year old female medically complex with PMHx DM2, HTN, Hypothyroidism, DVT, Diastolic HF, Intraparenchymal hemorrhage, and PE, who is a transfer from [facility] for UTI symptoms and recent fall. Patient states that she first started having lower extremity weakness 3 days ago and that 2 days ago she had fallen and hit her head. She notes that she is unsure, but feels she may have passed out. She states that she was able to get up shortly after the fall, but that she still felt weak. She notes that since then she has also been having worsening pain with urination, frequency, and urinary incontinence. Today, patient states that her weakness had started progressing into her hands as well as she was having difficulty holding her morning cup of coffee. Patient also states that she is currently being treated for a fungal and scabies. At [facility] patient was found to have a positive UA and was treated with Ceftriaxone. She also had a negative c-spine CT and negative Head CT showing chronic R frontal changes without acute changes. Social: No alcohol, tobacco, or illicit drug use. Living at [facility] x2 years Allergies Allergy/AdvReac Type Severity Reaction Status Date / Time butorphanol Allergy Intermediate HIVES Verified 09/29/19 14:08 chlorzoxazone Allergy Intermediate HIVES Verified 09/29/19 14:08 erythromycin base Allergy Intermediate HIVES Verified 09/29/19 14:08 naloxone Allergy Intermediate HIVES Verified 09/29/19 14:08 nitrofurantoin Allergy Intermediate HIVES Verified 09/29/19 14:08 pentazocine Allergy Intermediate HIVES Verified 09/29/19 14:08 diazepam AdvReac Unknown FELLS LIKE Verified 09/29/19 14:08 CRAWLING UP A WALL Home Medications Home Medications Medication Instructions Recorded Confirmed Type alendronate 70 mg PO SA 07/14/18 02/12/20 History ascorbic acid (vitamin C) [Vitamin 1,000 mg PO BID 07/14/18 02/12/20 History C] aspirin 81 mg PO QAM 07/14/18 02/12/20 History cholecalciferol (vitamin D3) 1,000 unit PO QAM 07/14/18 02/12/20 History [Vitamin D3] furosemide 40 mg PO AMPM 07/14/18 02/12/20 History hydroxyurea 1,000 mg PO MOTH@0800 07/14/18 02/12/20 History hydroxyurea 500 mg PO SUTUWEFRSA@0800 07/14/18 02/12/20 History levothyroxine 25 mcg PO QAM 07/14/18 02/12/20 History metoprolol tartrate 25 mg PO BID 07/14/18 02/12/20 History gabapentin 600 mg PO BID 08/06/18 02/12/20 History insulin aspart U-100 [Novolog 1 sliding scale dose SUBCUT UD 08/06/18 02/12/20 History U-100 Insulin aspart] lisinopril 2.5 mg PO QAM 08/06/18 02/12/20 History acetaminophen [Tylenol Extra 1,000 mg PO TID 09/29/19 02/12/20 History Strength] acidophilus-pectin, citrus 1 cap PO BID 09/29/19 02/12/20 History [Acidophilus Probiotic] carbamazepine 300 mg PO BID 09/29/19 02/12/20 History multivitamin with minerals 1 tab PO BID 09/29/19 02/12/20 History nystatin 10 ml PO QID 09/29/19 02/12/20 History ropinirole 1 mg PO HS 09/29/19 02/12/20 History cephalexin 500 mg PO BID #10 cap 02/12/20 Rx fluconazole 100 mg PO QAM #2 tab 02/12/20 Rx hydroxyzine HCl 25 mg PO Q8H PRN #10 tab 02/12/20 Rx Past Med/Surg History Social History Preferred Language: Macedonian Communication Ability: Effective Visual Impairment: No Limitations Hearing Ability: Normal Luncheonette Manager Required: No Beliefs That Will Affect Care: None marital status: / Current Living Situation: Jail Feels Safe at Home: Yes Smoking Status: Never smoker Hx Alcohol Use: No Hx Substance Use: No Review of Systems Constitutional: + weakness; no fever and no chills Eyes: no worsening vision Ear, Nose, Mouth, Throat: no dizziness Respiratory: no cough, no dyspnea and no pain on inspiration Cardiovascular: no chest pain, no palpitations and no lightheadedness Gastrointestinal: + fecal incontinence (since 02/03/20); no abdominal pain, no nausea and no vomiting Genitourinary: + dysuria, + urinary frequency, + urinary urgency and + urinary incontinence Musculoskeletal: no back pain and no neck pain Integumentary: + rash, + lesions and + pruritus Neurologic: + falls and + localized weakness (upper and lower extremities); no loss of sensation, no numbness, no paresthesia and no headache(s) Physical Exam Constitutional: well developed, well nourished, + frail appearing, + disheveled and cooperative; no acute distress, not diaphoretic and not lethargic ENMT: external ear and nose normal, oropharynx normal Neck: normal visual inspection Respiratory: normal respiratory effort, lungs clear to auscultation Cardiovascular: Rate/Rhythm: regular rate and regular rhythm Heart Sounds: no murmur Vessels: no JVD Chest (Breasts): Chest: + pacemaker Gastrointestinal (Abdomen): Inspection/Auscultation: normal bowel sounds, + significant pannus and + abdominal surgical scar; + abdomen abnormal to inspection (multiple erythematous papules, pruritic ) and abdomen not distended Percussion/Palpation: + abdomen tender (suprapubic tenderness); no guarding and abdomen not rigid Musculoskeletal: Extremities: + abnormal strength (4/5 LE bilateral) Skin: + rash (ertyhematous lesions on abdomen and arms, burrows inbetween R hand digits ) and + excoriations (arms bilateral) Neurologic: patellar DTR's 2+ bilat, sensation intact Psychiatric: A+Ox3, euthymic affect Eye Contact: good eye contact Genitourinary: Kimble Catheter in place Results & Data Results & Data ([facility]) Vital Signs (Past 12 Hours) Vital Signs Temp Pulse Resp BP Pulse Ox 02/10/20 20:32 36.7 C 76 18 189/91 H 97 Supervising Physician Co-Signing Physician Notes Attending addendum: I have physically seen this patient, have supervised the medical residents activities, and agree with the H&P unless as otherwise noted. Assessment and Plan: Urinary tract infection- Follow urine culture sensitivities from [facility] ED Empiric ceftriaxone 1 g IV daily. IV fluids. Generalized weakness and fall- Multifactorial: UTI, and chronic scabies, candidiasis. Scabies- Treat with Ivermectin Contact isolation Candidiasis- Fluconazole 100 mg p.o. daily x4 days Seizure disorder- Continue carbamazepine, check level. Continue gabapentin Hypertension- Continue metoprolol, furosemide and lisinopril with hold parameters Diabetes mellitus- Placed on Accu-Cheks before meals and at bedtime with NovoLog coverage per scale. Check hemoglobin A1c Remaining orders and notations as noted. PG Care Time/CCT Total # of Minutes Spent Total Time Spent with Patient: Total time spent is greater than 50% in coordination of care (as documented) at patient's floor/unit and/or counseling patient: Coding Level of Care Code 48027 Initial Inpt Care Lvl 3 Diagnoses UTI (urinary tract infection) N39.0 RLS (restless legs syndrome) G25.81 Candidiasis, intertriginous B37.2 Weakness R53.1 Hypothyroidism E03.9 HTN (hypertension) I10 Diabetes mellitus, type II E11.9 Seizure disorder G40.909 Scabies B86 Resident Activity Tracking Resident Involvement: Resident Care Provided Care Provided: Adult [facility] Medicine
[2020-02-10] MEDS ORDERED: CARBOHYDRATES FOR HYPOGLYCEMIA PO PRN (21:40)
[2020-02-10] MEDS ORDERED: DEXTROSE 50% 50 ML SYRINGE IV PRN (21:40)
[2020-02-10] MEDS ORDERED: GLUCOSE 40% GEL 15 GM TUBE PO PRN (21:40)
[2020-02-10] MEDS ORDERED: GLUCAGON FOR INJ 1 MG VIAL SQ PRN (21:40)
[2020-02-10] MEDS ORDERED: GLUCOSE 10 TABS/TUBE PO PRN (21:40)
[2020-02-10] MEDS ORDERED: PHARMACY GLYCEMIC MGMT CONSULT PRN (22:05)
[2020-02-10] MEDS ORDERED: PATIENT'S HEIGHT AND/OR WEIGHT NEEDED SCH (22:15)
[2020-02-11] MEDS ORDERED: MIRTAZAPINE TAB 15 MG TAB PO ONE (00:40)
[2020-02-11] MEDS: LEVOTHYROXINE SODIUM 25 MCG TABLET PO SCH (05:37)
[2020-02-11 06:19] LABS: Basophils # (auto) 0.06 K/uL (0-0.2); Basophils % (auto) 0.3 %; Eosinophils # (auto) 1.04 K/uL (0-0.5); Eosinophils % (auto) 5.6 %; Hematocrit (blood only) 42.3 % (37-47); Hemoglobin 14.2 g/dL (12.0-16.0); Immature Granulocytes # (auto) 0.23 K/uL (0.00-0.02); Immature Granulocytes % (auto) 1.2 %; Lymphocytes # (auto) 1.69 K/uL (1.2-3.4); Lymphocytes % (auto) 9.1 %; Mean Corpuscular Hemoglobin 34.8 pg (25-34); Mean Corpuscular Hgb Conc 33.6 g/dL (32-36); Mean Corpuscular Volume 103.7 fL (80-100); Mean Platelet Volume 9.8 fL (7.4-10.4); Monocytes # (auto) 1.09 K/uL (0.11-0.59); Monocytes % (auto) 5.8 %; Neutrophils # (auto) 14.54 K/uL (1.4-6.5); Platelet Count 647 K/uL (130-400); RDW Coefficient of Variation 16.2 % (11.5-14.5); RDW Standard Deviation 61.1 fL (36.4-46.3); Red Blood Count 4.08 M/uL (4.2-5.4); White Blood Count 18.65 K/uL (4.8-10.8)
[2020-02-11 06:55] LABS: Albumin Level 3.1 gm/dl (3.4-5.0); BUN Creatinine Ratio 60.1 (10-20); Calcium 9.3 mg/dl (8.5-10.1); Creatinine Clr Calc Pharmacy 44.3 ml/min; Est GFR (African American) 56.6; Est GFR (Non-African American) 48.9; Potassium 5.2 mmol/L (3.5-5.1)
[2020-02-11 07:05] LABS: Albumin Globulin Ratio 0.6 (0.9-2); Bilirubin,Total 0.3 mg/dl (0.2-1); Globulin 4.9 gm/dl (2.5-4.0); Thyroid Stimulating Hormone 0.933 uIu/ml (0.300-4.500)
[2020-02-11 07:30] LABS: Estimated Average Glucose 134 mg/dl; Hemoglobin A1C 6.3 % (4.5-5.6)
[2020-02-11] MEDS: FUROSEMIDE 40 MG TAB PO SCH (08:15)
[2020-02-11] MEDS: FLUCONAZOLE 100 MG TAB PO SCH (08:15)
[2020-02-11] MEDS: HYDROXYUREA 500 MG CAP PO SCH (08:15)
[2020-02-11] MEDS: GABAPENTIN 600 MG TAB PO SCH ×2 (08:15→21:17)
[2020-02-11] MEDS: METOPROLOL TARTRATE 25 MG TAB PO SCH ×2 (08:15→21:17)
[2020-02-11] MEDS: ASPIRIN 81 MG CHEW PO SCH (08:15)
[2020-02-11] MEDS: cefTRIAXone SODIUM 2,000 MG in DEXTROSE 5% 50 ML IV SCH (08:16)
[2020-02-11] MEDS: HEPARIN SOD 5,000 UNIT/0.5 ML VIAL SQ SCH ×2 (08:22→21:23)
[2020-02-11] MEDS: INSULIN ASPART 100 UNITS/ML 3 ML PEN SC SCH ×4 (08:32→21:21)
[2020-02-11] MEDS ORDERED: CARBAMAZEPINE 100 MG CHEW TAB PO SCH (09:00)
--- NOTE | 2020-02-11 15:55 | XCELERA ---
[id number] \\[id number]
--- NOTE | 2020-02-11 16:40 | Electrophysiology Report ---
Date of Service February 11, 2020
--- NOTE | 2020-02-11 16:41 | Post Anesthesia Assessment ---
Date of Service February 11, 2020 Post Sedation Assessment Vital Signs Temp Pulse Resp BP BP Pulse Ox 02/11/20 15:13 36.4 C L 68 18 148/73 H 94 02/11/20 08:10 37.2 C 77 18 159/72 H 95 02/11/20 00:16 36.5 C 76 16 171/69 H 97 02/10/20 20:32 36.7 C 76 18 189/91 H 97 Recovery Score Activity: Moves 4 extremities Respiration: Deep Breath/Cough Circulation: +/-20-49% PreAnes Value Consciousness: Fully Awake Oxygen Saturation: > 92% On Room Air Discharge Sedation Level of Care: Fast Track Phase II Post Sedation Plan On clinical assessment, the patient appears to have tolerated the sedation wi thout complications. Patient is recovering as anticipated. Patient will continue to be monitored by nursing and may be discharged when sedation discharge criteria are met per below protocol. Upon Completions of procedure up to 15 minutes continue every 5 minute vital signs and the P.A.R. score; then discharge to a Phase I or Fast Track to Phase II per the following guidelines: * Discharge Patient to appropriate Phase II area if PAR is 8 or greater or return to pre- procedure baseline. The post - procedure orders will be as directed. * If PAR score is less than 8 or not return to pre-procedure baseline then patient will follow Phase I monitoring till PAR is reached for Phase II. The Phase I may be done in procedure room or may call to secure a Phase I area. * If naloxone or flumazenil are used for reversal, hold in Phase I for continued monitoring from when last reversal dose was given for a minimum of 60 minutes or longer pending the nurse and/or physician discretion of patient condition before discharge to Phase II. Please call the Sedation Physician to re-evaluate and complete post-note for discharge to Phase II area. Do NOT discharge from procedure sedation or Phase 1 until post- sedation evaluation note is complete by procedure /sedation MD Sedation Discharge Instructions to be given to the patient at discharge to home.
[2020-02-11] MEDS ORDERED: IVERMECTIN 3 MG TABLET PO ONE (21:00)
[2020-02-11] MEDS ORDERED: ROPINIROLE HCL 1 MG TABLET PO SCH (21:00)
[2020-02-11] MEDS: hydrOXYzine HCl 10 MG TAB PO PRN (21:36)
--- NOTE | 2020-02-11 21:59 | Hospitalist Progress Note ---
Date of Service February 11, 2020 Assessment & Plan (1) UTI (urinary tract infection): Patient is an 84 year old female medically complex with PMHx DM2, HTN, Hypothyroidism, DVT, chronic diastolic CHF, Intraparenchymal hemorrhage, and factor V Leiden with PE no longer on anticoagulation, who is a transfer from [facility] for UTI symptoms and recent fall. Weakness and Fall, likely 2/2 UTI causing generalized weakness -Follow up with Urine Culture/Sensitivities from [facility]- will call their lab tomorrow -Continue Rocephin 2g IV daily -C-Spine CT neg, Head CT neg for acute process at outside facility -Elevated proBNP 1023, does not appear clinically in HF, echocardiogram here is normal -PT/OT ordered Scabies-follows with dermatology -Treated one time 2 weeks ago she thinks with topical medication -Received ivermectin 12mg p.o. x1 here on 02/10 -Contact precautions Candidiasis -Continue Diflucan 100mg QD x 3 more days Seizure Disorder -Continue Carbamazepine 300mg BID -Carbamazepine level mildly elevated -Continue Gabapentin 600mg BID -Recommend follow-up with neurology Hypertension-BP is controlled -Continue home metoprolol, furosemide, lisinopril DM2 -SSI, blood sugars here are controlled -HgbA1C here is well controlled at 6.3% Hypothyroidism -Continue Synthroid -TSH level is normal Restless Leg Syndrome -Continue ropinirole Essential thrombocythemia-follows with hematology -Continue hydroxyurea Also with leukocytosis which she says is also normal for her-unclear baseline Follow CBC Dispo: Med/Surg FEN: HH and DM2 diet DVT: Heparin Code: DNR/DNI Disposition-back to detention in the next 1 to 2 days, case management involved, I have concerns that she has scabies and is living in a detention-w e will make sure that she is under contact precautions there (2) RLS (restless legs syndrome): (3) Candidiasis, intertriginous: (4) Weakness: (5) Hypothyroidism: (6) HTN (hypertension): (7) Diabetes mellitus, type II: (8) Seizure disorder: (9) Scabies: (10) Essential thrombocythemia: (11) DVT prophylaxis: Admission and Anticipated Discharge Date Admission Date: February 10, 2020 Subjective Patient feeling well, she is eating. She is itchy from her scabies and requesting something for itching. Denies chest pain or shortness of breath, no abdominal pain. Moving her bowels today. Review of Systems Review of Systems: All systems reviewed & are unremarkable except as noted in HPI & below Physical Exam Constitutional: WD/WN, vitals as above Eyes: + anicteric sclerae Neck: trachea midline, no thyromegaly Respiratory: normal respiratory effort, lungs clear to auscultation Cardiovascular: RRR, no murmur, no edema Gastrointestinal (Abdomen): normal bowel sounds, soft, nontender, no hepatosplenomegaly Musculoskeletal: Extremities: extremities normal to inspection; no cyanosis and no clubbing Skin: + rash (Multiple erythematous macular papular lesions all over her body with burrows between her webspaces of the fingers and toes) Neurologic: moves all extremities and awake; no focal motor deficits Psychiatric: A+Ox3, euthymic affect Lymphatic: no lymphedema Results & Data Results & Data ([facility]) Vital Signs (Past 12 Hours) Vital Signs Temp Pulse Pulse Resp BP Pulse Ox 02/11/20 21:15 70 127/69 02/11/20 15:13 36.4 C L 68 18 148/73 H 94 Laboratory Results 02/11/20 02/11/20 02/11/20 Range/Units 20:46 17:18 12:15 WBC (4.8-10.8) K/uL RBC (4.2-5.4) M/uL Hgb (12.0-16.0) g/dL Hct (37-47) % MCV (80-100) fL MCH (25-34) pg MCHC (32-36) g/dL RDW Std Deviation (36.4-46.3) fL RDW Coeff of Danial (11.5-14.5) % Plt Count (130-400) K/uL MPV (7.4-10.4) fL Immature Gran % (Auto) % Neut % (Auto) % Lymph % (Auto) % [place] % (Auto) % Eos % (Auto) % Baso % (Auto) % Neut # (Auto) (1.4-6.5) K/uL Lymph # (Auto) (1.2-3.4) K/uL [place] # (Auto) (0.11-0.59) K/uL Eos # (Auto) (0-0.5) K/uL Baso # (Auto) (0-0.2) K/uL Immature Gran # (Auto) (0.00-0.02) K/uL Sodium (136-145) mmol/L Potassium (3.5-5.1) mmol/L Chloride (98-107) mmol/L Carbon Dioxide (21-32) mmol/L Anion Gap (3-11) BUN (7-18) mg/dl Creatinine (0.6-1.2) mg/dl Est Cr Clr Drug Dosing ml/min Est GFR ( Amer) Est GFR (Non-Af Amer) BUN/Creatinine Ratio (10-20) Glucose (70-99) mg/dl POC Glucose 187 H 76 141 H (70-99) mg/dl Estimat Average Glucose mg/dl Hemoglobin A1c (4.5-5.6) % Calcium (8.5-10.1) mg/dl Total Bilirubin (0.2-1) mg/dl AST (15-37) U/L ALT (12-78) U/L Alkaline Phosphatase (45-117) U/L Total Protein (6.4-8.2) gm/dl Albumin (3.4-5.0) gm/dl Globulin (2.5-4.0) gm/dl Albumin/Globulin Ratio (0.9-2) TSH (0.300-4.500) uIu/ml Carbamazepine (4-12) mcg/ml 02/11/20 02/11/20 02/11/20 Range/Units 08:18 06:04 06:04 WBC (4.8-10.8) K/uL RBC (4.2-5.4) M/uL Hgb (12.0-16.0) g/dL Hct (37-47) % MCV (80-100) fL MCH (25-34) pg MCHC (32-36) g/dL RDW Std Deviation (36.4-46.3) fL RDW Coeff of Danial (11.5-14.5) % Plt Count (130-400) K/uL MPV (7.4-10.4) fL Immature Gran % (Auto) % Neut % (Auto) % Lymph % (Auto) % [place] % (Auto) % Eos % (Auto) % Baso % (Auto) % Neut # (Auto) (1.4-6.5) K/uL Lymph # (Auto) (1.2-3.4) K/uL [place] # (Auto) (0.11-0.59) K/uL Eos # (Auto) (0-0.5) K/uL Baso # (Auto) (0-0.2) K/uL Immature Gran # (Auto) (0.00-0.02) K/uL Sodium 142 (136-145) mmol/L Potassium 5.2 H (3.5-5.1) mmol/L Chloride 113 H (98-107) mmol/L Carbon Dioxide 22 (21-32) mmol/L Anion Gap 7.0 (3-11) BUN 64 H (7-18) mg/dl Creatinine 1.06 (0.6-1.2) mg/dl Est Cr Clr Drug Dosing 44.3 ml/min Est GFR ( Amer) 56.6 Est GFR (Non-Af Amer) 48.9 BUN/Creatinine Ratio 60.1 H (10-20) Glucose 122 H (70-99) mg/dl POC Glucose 118 H (70-99) mg/dl Estimat Average Glucose 134 mg/dl Hemoglobin A1c 6.3 H (4.5-5.6) % Calcium 9.3 (8.5-10.1) mg/dl Total Bilirubin 0.3 (0.2-1) mg/dl AST 20 (15-37) U/L ALT 28 (12-78) U/L Alkaline Phosphatase 159 H (45-117) U/L Total Protein 8.0 (6.4-8.2) gm/dl Albumin 3.1 L (3.4-5.0) gm/dl Globulin 4.9 H (2.5-4.0) gm/dl Albumin/Globulin Ratio 0.6 L (0.9-2) TSH 0.933 (0.300-4.500) uIu/ml Carbamazepine (4-12) mcg/ml 02/11/20 02/10/20 Range/Units 06:04 23:12 WBC 18.65 H (4.8-10.8) K/uL RBC 4.08 L (4.2-5.4) M/uL Hgb 14.2 (12.0-16.0) g/dL Hct 42.3 (37-47) % MCV 103.7 H (80-100) fL MCH 34.8 H (25-34) pg MCHC 33.6 (32-36) g/dL RDW Std Deviation 61.1 H (36.4-46.3) fL RDW Coeff of Danial 16.2 H (11.5-14.5) % Plt Count 647 H (130-400) K/uL MPV 9.8 (7.4-10.4) fL Immature Gran % (Auto) 1.2 % Neut % (Auto) 78.0 % Lymph % (Auto) 9.1 % [place] % (Auto) 5.8 % Eos % (Auto) 5.6 % Baso % (Auto) 0.3 % Neut # (Auto) 14.54 H (1.4-6.5) K/uL Lymph # (Auto) 1.69 (1.2-3.4) K/uL [place] # (Auto) 1.09 H (0.11-0.59) K/uL Eos # (Auto) 1.04 H (0-0.5) K/uL Baso # (Auto) 0.06 (0-0.2) K/uL Immature Gran # (Auto) 0.23 H (0.00-0.02) K/uL Sodium (136-145) mmol/L Potassium (3.5-5.1) mmol/L Chloride (98-107) mmol/L Carbon Dioxide (21-32) mmol/L Anion Gap (3-11) BUN (7-18) mg/dl Creatinine (0.6-1.2) mg/dl Est Cr Clr Drug Dosing ml/min Est GFR ( Amer) Est GFR (Non-Af Amer) BUN/Creatinine Ratio (10-20) Glucose (70-99) mg/dl POC Glucose (70-99) mg/dl Estimat Average Glucose mg/dl Hemoglobin A1c (4.5-5.6) % Calcium (8.5-10.1) mg/dl Total Bilirubin (0.2-1) mg/dl AST (15-37) U/L ALT (12-78) U/L Alkaline Phosphatase (45-117) U/L Total Protein (6.4-8.2) gm/dl Albumin (3.4-5.0) gm/dl Globulin (2.5-4.0) gm/dl Albumin/Globulin Ratio (0.9-2) TSH (0.300-4.500) uIu/ml Carbamazepine 13.3 H* (4-12) mcg/ml PG Care Time/CCT Total # of Minutes Spent Total Time Spent with Patient: Total time spent is greater than 50% in coordination of care (as documented) at patient's floor/unit and/or counseling patient: Coding Level of Care Code 51833 Subseq Hosp Care Lvl 2 Diagnoses UTI (urinary tract infection) N39.0 RLS (restless legs syndrome) G25.81 Candidiasis, intertriginous B37.2 Weakness R53.1 Hypothyroidism E03.9 HTN (hypertension) I10 Diabetes mellitus, type II E11.9 Seizure disorder G40.909 Scabies B86 Essential thrombocythemia D47.3 DVT prophylaxis Z29.9
[2020-02-12] MEDS: hydrOXYzine HCl 10 MG TAB PO PRN ×2 (02:21→10:41)
[2020-02-12] MEDS: LEVOTHYROXINE SODIUM 25 MCG TABLET PO SCH (05:42)
[2020-02-12 06:30] LABS: Basophils # (auto) 0.05 K/uL (0-0.2); Basophils % (auto) 0.3 %; Eosinophils # (auto) 1.14 K/uL (0-0.5); Eosinophils % (auto) 6.4 %; Hematocrit (blood only) 40.5 % (37-47); Hemoglobin 13.5 g/dL (12.0-16.0); Immature Granulocytes # (auto) 0.27 K/uL (0.00-0.02); Immature Granulocytes % (auto) 1.5 %; Lymphocytes # (auto) 2.13 K/uL (1.2-3.4); Mean Corpuscular Hemoglobin 34.7 pg (25-34); Mean Corpuscular Hgb Conc 33.3 g/dL (32-36); Mean Corpuscular Volume 104.1 fL (80-100); Mean Platelet Volume 11.3 fL (7.4-10.4); Monocytes % (auto) 6.8 %; Neutrophils # (auto) 12.97 K/uL (1.4-6.5); Platelet Count 535 K/uL (130-400); RDW Coefficient of Variation 16.2 % (11.5-14.5); RDW Standard Deviation 61.4 fL (36.4-46.3); Red Blood Count 3.89 M/uL (4.2-5.4); White Blood Count 17.76 K/uL (4.8-10.8)
[2020-02-12 07:03] LABS: BUN Creatinine Ratio 57.4 (10-20); Calcium 8.8 mg/dl (8.5-10.1); Creatinine Clr Calc Pharmacy 40.1 ml/min; Est GFR (African American) 50.3; Est GFR (Non-African American) 43.4
[2020-02-12] MEDS: HEPARIN SOD 5,000 UNIT/0.5 ML VIAL SQ SCH ×2 (09:00→09:57)
[2020-02-12] MEDS: HYDROXYUREA 500 MG CAP PO SCH (09:00)
[2020-02-12] MEDS: INSULIN ASPART 100 UNITS/ML 3 ML PEN SC SCH ×2 (09:45→13:15)
[2020-02-12] MEDS: METOPROLOL TARTRATE 25 MG TAB PO SCH (10:00)
[2020-02-12] MEDS: FUROSEMIDE 40 MG TAB PO SCH (10:00)
[2020-02-12] MEDS: ASPIRIN 81 MG CHEW PO SCH (10:00)
[2020-02-12] MEDS: GABAPENTIN 600 MG TAB PO SCH (10:00)
[2020-02-12] MEDS: cefTRIAXone SODIUM 2,000 MG in DEXTROSE 5% 50 ML IV SCH (10:24)
[2020-02-12] MEDS: FLUCONAZOLE 100 MG TAB PO SCH (10:25)
--- NOTE | 2020-02-12 13:33 | Discharge Summary ---
Date of Service February 12, 2020 Admission HPI Per Admitting Provider Patient is an 84 year old female medically complex with PMHx DM2, HTN, Hypothyroidism, DVT, Diastolic HF, Intraparenchymal hemorrhage, and PE, who is a transfer from [facility] for UTI symptoms and recent fall. Patient states that she first started having lower extremity weakness 3 days ago and that 2 days ago she had fallen and hit her head. She notes that she is unsure, but feels she may have passed out. She states that she was able to get up shortly after the fall, but that she still felt weak. She notes that since then she has also been having worsening pain with urination, frequency, and urinary incontinence. Today, patient states that her weakness had started progressing into her hands as well as she was having difficulty holding her morning cup of coffee. Patient also states that she is currently being treated for a fungal and scabies. At [facility] patient was found to have a positive UA and was treated with Ceftriaxone. She also had a negative c-spine CT and negative Head CT showing chronic R frontal changes without acute changes. Social: No alcohol, tobacco, or illicit drug use. Living at [facility] x2 years Principal Diagnosis UTI, generalized weakness, scabies Discharge Exam Constitutional WD/WN, vitals as above Eyes + anicteric sclerae Neck trachea midline, no thyromegaly Respiratory normal respiratory effort, lungs clear to auscultation Cardiovascular RRR, no murmur, no edema Chest (Breasts) Chest: normal inspection of chest Gastrointestinal (Abdomen) normal bowel sounds, soft, nontender, no hepatosplenomegaly Musculoskeletal Extremities: extremities normal to inspection; no cyanosis and no clubbing Skin no rashes, warm and dry + rash (Multiple erythematous macular papular lesions all over her body with burrows between her webspaces of the fingers and toes) Neurologic moves all extremities and awake; no focal motor deficits Psychiatric A+Ox3, euthymic affect Lymphatic no lymphedema Discharge Data Allergies Allergy/AdvReac Type Severity Reaction Status Date / Time butorphanol Allergy Intermediate HIVES Verified 09/29/19 14:08 chlorzoxazone Allergy Intermediate HIVES Verified 09/29/19 14:08 erythromycin base Allergy Intermediate HIVES Verified 09/29/19 14:08 naloxone Allergy Intermediate HIVES Verified 09/29/19 14:08 nitrofurantoin Allergy Intermediate HIVES Verified 09/29/19 14:08 pentazocine Allergy Intermediate HIVES Verified 09/29/19 14:08 diazepam AdvReac Unknown FELLS LIKE Verified 09/29/19 14:08 CRAWLING UP A WALL Consultations 02/10/20 21:45 Consult Health Information Management Routine Hospital Course (1) UTI (urinary tract infection): Patient is an 84 year old female medically complex with PMHx DM2, HTN, Hypothyroidism, DVT, chronic diastolic CHF, Intraparenchymal hemorrhage, and factor V Leiden with PE no longer on anticoagulation, who is a transfer from [facility] for UTI symptoms and recent fall. Weakness and Fall, likely 2/2 UTI causing generalized weakness - Urine Culture ended up with no growth FINAL from [facility] -symptoms improved, weakness improved -received Rocephin 2g IV daily x 2 days and will finish out course with Keflex to complete 7 day course -C-Spine CT neg, Head CT neg for acute process at outside facility -Elevated proBNP 1023, does not appear clinically in HF, echocardiogram here is normal -PT/OT ordered and recommend SNF She is much improved from her weakness and feels ready to go back to the nursing facility. Her daughter is in agreement with discharge. Scabies-follows with dermatology -Treated with po ivermectin 12mg on 02/03 by [facility] and again received a second dose here on 02/10 -hydroxyzine for itching -Contact precautions Candidiasis -Continue Diflucan 100mg QD x 2 more days Seizure Disorder -Continue Carbamazepine 300mg BID -Carbamazepine level mildly elevated -Continue Gabapentin 600mg BID -Recommend follow-up with neurology Hypertension-BP is controlled -Continue home metoprolol, furosemide, lisinopril DM2 -SSI, blood sugars here are controlled -HgbA1C here is well controlled at 6.3% Hypothyroidism -Continue Synthroid -TSH level is normal Restless Leg Syndrome -Continue ropinirole Essential thrombocythemia-follows with hematology -Continue hydroxyurea Also with leukocytosis which she says is also normal for her-unclear baseline Follow CBC as outpt and f/u with Hematology Dr. Prajapati at [facility] History of DVT/PE-with history of factor V Leiden. No evidence of acute DVT/PE here She is not on anticoagulation due to history of subarachnoid hemorrhage status post fall Dispo: Med/Surg FEN: HH and DM2 diet DVT: Heparin Code: DNR/DNI Disposition-back to jail today (2) RLS (restless legs syndrome): (3) Candidiasis, intertriginous: (4) Weakness: (5) Hypothyroidism: (6) HTN (hypertension): (7) Diabetes mellitus, type II: (8) Seizure disorder: (9) Scabies: (10) Essential thrombocythemia: (11) DVT prophylaxis: Total Time Total Time Spent Total Time Spent (In Minutes): Greater than 30 minutes Total Time Includes: Examination of the Patient, Discharge Planning and Medication Reconciliation Discharge Plan Discharge Items Patient Disposition: Transfer Intermediate Fac Reason For Visit: UTI Discharge Diagnosis: UTI, weakness, scabies Condition on Discharge: Fair Activity: Resume your previous activity Non-emergency contact: Primary Care Provider Call non-emergency contact if: you have any medication questions and your sy mptoms worsen Follow-up/Referrals: Tanja Francis MD [Primary Care Provider] - Diet: Carb Consistent or DM2 and Heart Healthy Addtl Attending Provider Instructions: Please finish out 5 more days of the oral antibiotic cephalexin. You were given a one-time dose here of ivermectin which is a medication for scabies. Hopefully this should help improve your symptoms in 1 week. 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 You can take hydroxyzine as needed for itching. Please continue physical therapy and Occupational Therapy for strengthening. Pending Studies at Discharge: No Stand-Alone Forms: My [facility] Skilled Items Patient informed of condition?: Yes DNR: Yes Discharge Level of Care: Skilled Communicable Disease: Yes Discharge Prognosis: Stable Lines: None Urinary Catheter: No Medications and DC Order Prescriptions: New fluconazole 100 mg Tablet 100 mg PO QAM Qty: 2 RF: 0 hydroxyzine HCl 25 mg tablet 25 mg PO Q8H PRN (Reason: itching) Qty: 10 RF: 0 cephalexin 500 mg capsule 500 mg PO BID Qty: 10 RF: 0 Continued furosemide 40 mg Tablet 40 mg PO AMPM RF: 0 hydroxyurea 500 mg Capsule 500 mg PO SUTUWEFRSA@0800 RF: 0 hydroxyurea 500 mg Capsule 1,000 mg PO MOTH@0800 RF: 0 ascorbic acid (vitamin C) [Vitamin C] 1,000 mg Tablet 1,000 mg PO BID RF: 0 levothyroxine 25 mcg Tablet 25 mcg PO QAM RF: 0 aspirin 81 mg Tablet,Chewable 81 mg PO QAM RF: 0 metoprolol tartrate 25 mg Tablet 25 mg PO BID RF: 0 alendronate 70 mg Tablet 70 mg PO SA RF: 0 cholecalciferol (vitamin D3) [Vitamin D3] 1,000 unit Tablet 1,000 unit PO QAM RF: 0 gabapentin 600 mg Tablet 600 mg PO BID RF: 0 insulin aspart U-100 [Novolog U-100 Insulin aspart] 100 unit/mL Solution 1 sliding scale dose SUBCUT UD RF: 0 lisinopril 2.5 mg Tablet 2.5 mg PO QAM RF: 0 nystatin 100,000 unit/mL suspension 10 ml PO QID RF: 0 ropinirole 1 mg tablet 1 mg PO HS RF: 0 acetaminophen [Tylenol Extra Strength] 500 mg Tablet 1,000 mg PO TID RF: 0 carbamazepine 100 mg tablet,chewable 300 mg PO BID RF: 0 multivitamin with minerals Tablet 1 tab PO BID RF: 0 acidophilus-pectin, citrus [Acidophilus Probiotic] 100 million cell-10 mg Capsule 1 cap PO BID RF: 0 Discontinued tramadol 50 mg Tablet 50 mg PO HS PRN (Reason: Pain) RF: 0 Discharge Orders: Discharge Order (Routine); Ordered 02/12/20 Ordered By: Radha Samuels/Other Patient Handouts: A1C Admission Data Admit Date/Time: 02/10/20 20:28 Attending Provider: Radha Flynn Admit Provider: Vinny Jeff Primary Care Provider: Tanja Francis Other Interventions: Discharge Summary Assessment (RN) Last Done: 02/12/20 16:49 DC Date/Time DO NOT enter until pt leaves facility: 02/12/20 18:09 Coding Level of Care Code D/C Day Management >30 mins Diagnoses UTI (urinary tract infection) N39.0 RLS (restless legs syndrome) G25.81 Candidiasis, intertriginous B37.2 Weakness R53.1 Hypothyroidism E03.9 HTN (hypertension) I10 Diabetes mellitus, type II E11.9 Seizure disorder G40.909 Scabies B86 Essential thrombocythemia D47.3 DVT prophylaxis Z29.9
--- NOTE | 2020-02-12 20:43 | Billing Data ---
Date of Service February 12, 2020 Coding Level of Care Code 06588 Initial Inpt Care Lvl 3
[2020-02-13] MEDS ORDERED: HYDROXYUREA 500 MG CAP PO SCH (08:00)
== END 2020-02-12 18:09 | DRG 690 ==
LOC: SUATTDRO 20:28 → 3N 20:28